=== PATIENT | female | born 1935 | race Caucasian/White ===

== ENCOUNTER 2021-08-28 14:15 | Outpatient (CLI) | payer MEDICARE, BC, SELFPAY | END 2021-08-28 14:16 | disposition home or self-care (01) | LOC: WOUND 14:16 | PROVIDERS: PCP Family Medicine; Visit Provider Surgery | DX: I87.313 Chronic venous hypertension (idiopathic) with ulcer of bilateral lower extremity (principal); L97.822 Non-pressure chronic ulcer of other part of left lower leg with fat layer exposed; L97.812 Non-pressure chronic ulcer of other part of right lower leg with fat layer exposed | CPT/HCPCS: 97597 ==

== ENCOUNTER 2021-09-11 14:04 | Outpatient (CLI) | payer MEDICARE, BC, SELFPAY | END 2021-09-11 14:05 | disposition home or self-care (01) | LOC: WOUND 14:05 | PROVIDERS: PCP Family Medicine; Visit Provider Surgery | DX: I87.313 Chronic venous hypertension (idiopathic) with ulcer of bilateral lower extremity (principal); L97.822 Non-pressure chronic ulcer of other part of left lower leg with fat layer exposed; L97.811 Non-pressure chronic ulcer of other part of right lower leg limited to breakdown of skin | CPT/HCPCS: 11042; 97597 ==

== ENCOUNTER 2021-09-18 13:13 | Outpatient (CLI) | payer MEDICARE, BC, SELFPAY | END 2021-09-18 13:14 | disposition home or self-care (01) | LOC: WOUND 13:14 | PROVIDERS: PCP Family Medicine; Visit Provider Surgery | DX: I87.312 Chronic venous hypertension (idiopathic) with ulcer of left lower extremity (principal); L97.822 Non-pressure chronic ulcer of other part of left lower leg with fat layer exposed; I89.0 Lymphedema, not elsewhere classified | CPT/HCPCS: 11042 ==

== ENCOUNTER 2021-10-02 09:31 | Outpatient (CLI) | payer MEDICARE, BC, SELFPAY | END 2021-10-02 09:32 | disposition home or self-care (01) | LOC: WOUND 09:31 | PROVIDERS: PCP Family Medicine; Visit Provider Surgery | DX: I87.313 Chronic venous hypertension (idiopathic) with ulcer of bilateral lower extremity (principal); L97.222 Non-pressure chronic ulcer of left calf with fat layer exposed; L97.212 Non-pressure chronic ulcer of right calf with fat layer exposed | CPT/HCPCS: 11042 ==

== ENCOUNTER 2021-10-02 13:10 | Outpatient (CLI) | payer MEDICARE, BC, SELFPAY | END 2021-10-02 13:11 | disposition home or self-care (01) | LOC: WOUND 13:11 | PROVIDERS: PCP Family Medicine; Visit Provider Surgery | DX: I87.313 Chronic venous hypertension (idiopathic) with ulcer of bilateral lower extremity (principal); L97.222 Non-pressure chronic ulcer of left calf with fat layer exposed; L97.212 Non-pressure chronic ulcer of right calf with fat layer exposed | CPT/HCPCS: 11042 ==

== ENCOUNTER 2021-10-09 13:15 | Outpatient (CLI) | payer MEDICARE, BC, SELFPAY | END 2021-10-09 13:16 | disposition home or self-care (01) | LOC: WOUND 13:16 | PROVIDERS: PCP Family Medicine; Visit Provider Surgery | DX: I87.313 Chronic venous hypertension (idiopathic) with ulcer of bilateral lower extremity (principal); I89.0 Lymphedema, not elsewhere classified; L97.212 Non-pressure chronic ulcer of right calf with fat layer exposed; L97.822 Non-pressure chronic ulcer of other part of left lower leg with fat layer exposed | CPT/HCPCS: 11042 ==

== ENCOUNTER 2021-10-16 13:12 | Outpatient (CLI) | payer MEDICARE, BC, SELFPAY | END 2021-10-16 13:13 | disposition home or self-care (01) | LOC: WOUND 13:13 | PROVIDERS: PCP Family Medicine; Visit Provider Surgery | DX: I87.303 Chronic venous hypertension (idiopathic) without complications of bilateral lower extremity (principal); I89.0 Lymphedema, not elsewhere classified; L97.822 Non-pressure chronic ulcer of other part of left lower leg with fat layer exposed; L97.212 Non-pressure chronic ulcer of right calf with fat layer exposed | CPT/HCPCS: 11042 ==

== ENCOUNTER 2021-10-23 13:08 | Outpatient (CLI) | payer MEDICARE, BC, SELFPAY | END 2021-10-23 13:09 | disposition home or self-care (01) | LOC: WOUND 13:09 | PROVIDERS: PCP Family Medicine; Visit Provider Surgery | DX: I87.312 Chronic venous hypertension (idiopathic) with ulcer of left lower extremity (principal); L97.822 Non-pressure chronic ulcer of other part of left lower leg with fat layer exposed | CPT/HCPCS: 97597 ==

== ENCOUNTER 2021-10-30 13:10 | Outpatient (CLI) | payer MEDICARE, BC, SELFPAY | END 2021-10-30 13:11 | disposition home or self-care (01) | LOC: WOUND 13:10 | PROVIDERS: PCP Family Medicine; Visit Provider Surgery | DX: I87.313 Chronic venous hypertension (idiopathic) with ulcer of bilateral lower extremity (principal); L97.822 Non-pressure chronic ulcer of other part of left lower leg with fat layer exposed; L97.212 Non-pressure chronic ulcer of right calf with fat layer exposed | CPT/HCPCS: 29581; 99212 ==

== ENCOUNTER 2021-11-06 08:00 | Outpatient (CLI) | payer MEDICARE, BC, SELFPAY | END 2021-11-06 08:01 | disposition home or self-care (01) | LOC: WOUND 03-18 11:13 | PROVIDERS: PCP Family Medicine; Visit Provider Surgery | DX: I87.313 Chronic venous hypertension (idiopathic) with ulcer of bilateral lower extremity (principal); L97.212 Non-pressure chronic ulcer of right calf with fat layer exposed; L97.822 Non-pressure chronic ulcer of other part of left lower leg with fat layer exposed; L97.812 Non-pressure chronic ulcer of other part of right lower leg with fat layer exposed | CPT/HCPCS: 11042 ==

== ENCOUNTER 2021-11-13 13:13 | Outpatient (CLI) | payer MEDICARE, BC, SELFPAY | END 2021-11-13 13:14 | disposition home or self-care (01) | LOC: WOUND 13:13 | PROVIDERS: PCP Family Medicine; Visit Provider Nurse Practitioner Family | DX: I87.313 Chronic venous hypertension (idiopathic) with ulcer of bilateral lower extremity (principal); L97.822 Non-pressure chronic ulcer of other part of left lower leg with fat layer exposed; L97.212 Non-pressure chronic ulcer of right calf with fat layer exposed; I89.0 Lymphedema, not elsewhere classified | CPT/HCPCS: 11042 ==

== ENCOUNTER 2021-11-20 13:09 | Outpatient (CLI) | payer MEDICARE, BC, SELFPAY | END 2021-11-20 13:10 | disposition home or self-care (01) | LOC: WOUND 13:09 | PROVIDERS: PCP Family Medicine; Visit Provider Surgery | DX: I87.311 Chronic venous hypertension (idiopathic) with ulcer of right lower extremity (principal); L97.212 Non-pressure chronic ulcer of right calf with fat layer exposed | CPT/HCPCS: 11042 ==

== ENCOUNTER 2021-11-27 13:56 | Outpatient (CLI) | payer MEDICARE, BC, SELFPAY | END 2021-11-27 13:57 | disposition home or self-care (01) | LOC: WOUND 13:59 | PROVIDERS: PCP Family Medicine; Visit Provider Surgery | DX: I87.313 Chronic venous hypertension (idiopathic) with ulcer of bilateral lower extremity (principal); I89.0 Lymphedema, not elsewhere classified; L97.822 Non-pressure chronic ulcer of other part of left lower leg with fat layer exposed; L97.812 Non-pressure chronic ulcer of other part of right lower leg with fat layer exposed | CPT/HCPCS: 11042 ==

== ENCOUNTER 2021-12-04 13:10 | Outpatient (CLI) | payer MEDICARE, BC, SELFPAY | END 2021-12-04 13:11 | disposition home or self-care (01) | LOC: WOUND 13:11 | PROVIDERS: PCP Family Medicine; Visit Provider Surgery | DX: I87.312 Chronic venous hypertension (idiopathic) with ulcer of left lower extremity (principal); L97.822 Non-pressure chronic ulcer of other part of left lower leg with fat layer exposed; I89.0 Lymphedema, not elsewhere classified | CPT/HCPCS: 11042 ==

== ENCOUNTER 2021-12-11 13:08 | Outpatient (CLI) | payer MEDICARE, BC, SELFPAY | END 2021-12-11 13:09 | disposition home or self-care (01) | LOC: WOUND 13:08 | PROVIDERS: PCP Family Medicine; Visit Provider Surgery | DX: I87.313 Chronic venous hypertension (idiopathic) with ulcer of bilateral lower extremity (principal); L97.822 Non-pressure chronic ulcer of other part of left lower leg with fat layer exposed; L97.812 Non-pressure chronic ulcer of other part of right lower leg with fat layer exposed; I89.0 Lymphedema, not elsewhere classified | CPT/HCPCS: 97597 ==

== ENCOUNTER 2021-12-18 13:10 | Outpatient (CLI) | payer MEDICARE, BC, SELFPAY | END 2021-12-18 13:11 | disposition home or self-care (01) | LOC: WOUND 13:10 | PROVIDERS: PCP Family Medicine; Visit Provider Surgery | DX: I87.313 Chronic venous hypertension (idiopathic) with ulcer of bilateral lower extremity (principal); L97.823 Non-pressure chronic ulcer of other part of left lower leg with necrosis of muscle; L97.812 Non-pressure chronic ulcer of other part of right lower leg with fat layer exposed; I89.0 Lymphedema, not elsewhere classified | CPT/HCPCS: 11042; 97597 ==

== ENCOUNTER 2021-12-25 13:15 | Outpatient (CLI) | payer MEDICARE, BC, SELFPAY | END 2021-12-25 13:16 | disposition home or self-care (01) | LOC: WOUND 13:16 | PROVIDERS: PCP Family Medicine; Visit Provider Surgery | DX: I87.313 Chronic venous hypertension (idiopathic) with ulcer of bilateral lower extremity (principal); L97.822 Non-pressure chronic ulcer of other part of left lower leg with fat layer exposed; L97.812 Non-pressure chronic ulcer of other part of right lower leg with fat layer exposed; I89.0 Lymphedema, not elsewhere classified | CPT/HCPCS: 11042 ==

== ENCOUNTER 2022-01-01 13:18 | Outpatient (CLI) | payer MEDICARE, BC, SELFPAY | END 2022-01-01 13:19 | disposition home or self-care (01) | LOC: WOUND 13:19 | PROVIDERS: PCP Family Medicine; Visit Provider Surgery | DX: I87.313 Chronic venous hypertension (idiopathic) with ulcer of bilateral lower extremity (principal); L97.821 Non-pressure chronic ulcer of other part of left lower leg limited to breakdown of skin; L97.812 Non-pressure chronic ulcer of other part of right lower leg with fat layer exposed; L97.822 Non-pressure chronic ulcer of other part of left lower leg with fat layer exposed | CPT/HCPCS: 97597 ==

== ENCOUNTER 2022-01-08 13:06 | Outpatient (CLI) | payer MEDICARE, BC, SELFPAY | END 2022-01-08 13:07 | disposition home or self-care (01) | LOC: WOUND 13:07 | PROVIDERS: PCP Family Medicine; Visit Provider Surgery | DX: I87.313 Chronic venous hypertension (idiopathic) with ulcer of bilateral lower extremity (principal); I89.0 Lymphedema, not elsewhere classified; L97.822 Non-pressure chronic ulcer of other part of left lower leg with fat layer exposed; L97.812 Non-pressure chronic ulcer of other part of right lower leg with fat layer exposed | CPT/HCPCS: 11042 ==

== ENCOUNTER 2022-01-15 13:12 | Outpatient (CLI) | payer MEDICARE, BC, SELFPAY | END 2022-01-15 13:13 | disposition home or self-care (01) | LOC: WOUND 13:13 | PROVIDERS: PCP Family Medicine; Visit Provider Nurse Practitioner Family | DX: I83.023 Varicose veins of left lower extremity with ulcer of ankle (principal); I83.012 Varicose veins of right lower extremity with ulcer of calf; L97.322 Non-pressure chronic ulcer of left ankle with fat layer exposed; L97.812 Non-pressure chronic ulcer of other part of right lower leg with fat layer exposed; I89.0 Lymphedema, not elsewhere classified; L97.222 Non-pressure chronic ulcer of left calf with fat layer exposed | CPT/HCPCS: 11042 ==

== ENCOUNTER 2022-02-05 13:01 | Outpatient (CLI) | payer MEDICARE, BC, SELFPAY | END 2022-02-05 13:02 | disposition home or self-care (01) | LOC: WOUND 13:01 | PROVIDERS: PCP Family Medicine; Visit Provider Surgery | DX: I87.313 Chronic venous hypertension (idiopathic) with ulcer of bilateral lower extremity (principal); L97.822 Non-pressure chronic ulcer of other part of left lower leg with fat layer exposed; L97.812 Non-pressure chronic ulcer of other part of right lower leg with fat layer exposed; I89.0 Lymphedema, not elsewhere classified | CPT/HCPCS: 97597 ==

== ENCOUNTER 2022-02-19 13:09 | Outpatient (CLI) | payer MEDICARE, BC, SELFPAY | END 2022-02-19 13:10 | disposition home or self-care (01) | LOC: WOUND 13:09 | PROVIDERS: PCP Family Medicine; Visit Provider Surgery | DX: I87.312 Chronic venous hypertension (idiopathic) with ulcer of left lower extremity (principal); L97.822 Non-pressure chronic ulcer of other part of left lower leg with fat layer exposed | CPT/HCPCS: 11042 ==

== ENCOUNTER 2022-02-26 13:10 | Outpatient (CLI) | payer MEDICARE, BC, SELFPAY | END 2022-02-26 13:11 | disposition home or self-care (01) | LOC: WOUND 13:10 | PROVIDERS: PCP Family Medicine; Visit Provider Surgery | DX: I87.312 Chronic venous hypertension (idiopathic) with ulcer of left lower extremity (principal); L97.222 Non-pressure chronic ulcer of left calf with fat layer exposed; I89.0 Lymphedema, not elsewhere classified | CPT/HCPCS: 11042 ==

== ENCOUNTER 2022-03-12 13:02 | Outpatient (CLI) | payer MEDICARE, BC, SELFPAY | END 2022-03-12 13:03 | disposition home or self-care (01) | LOC: WOUND 13:03 | PROVIDERS: PCP Family Medicine; Visit Provider Surgery | DX: I87.312 Chronic venous hypertension (idiopathic) with ulcer of left lower extremity (principal); L97.822 Non-pressure chronic ulcer of other part of left lower leg with fat layer exposed; I89.0 Lymphedema, not elsewhere classified | CPT/HCPCS: 11042 ==

== ENCOUNTER 2022-03-17 14:55 | Outpatient (CLI) | payer MEDICARE, BC, SELFPAY ==
--- NOTE | 2022-03-17 15:00 | CRLHL7_ITS ---
For Patients: As a result of the 21st Century Cures Act, medical imaging exams and procedure reports are released immediately into your electronic medical record. You may view this report before your referring provider. If you have questions, please contact your health care provider. ULTRASOUND LOWER EXTREMITY VENOUS INSUFFICIENCY BILATERAL CLINICAL HISTORY: Venous stasis ulcers. TECHNIQUE: The bilateral lower extremity veins were examined with man-scale ultrasound, color-flow and Doppler spectral analysis. Compressibility of the veins by transducer pressure was used to evaluate the presence or absence of DVT/SVT at sites per exam specific protocol. Assessment of venous competence was performed by Doppler spectral analysis and was performed and documented at exam specific sites in an upright position for venous insufficiency studies. COMPARISON: None. FINDINGS: There is no evidence for DVT in the bilateral lower extremities. The deep venous systems are compressible augmentation of flow post-compression. Phasic flow is identified. Deep venous incompetence is noted within one of the right posterior tibial veins (reflux duration 4 seconds). Right lower extremity: The greater saphenous vein is incompetent at the distal thigh (reflux duration 4.1 seconds, 4.7 mm), in the proximal calf (reflux duration 3 seconds, 4.6 mm), mid calf (reflux duration 5.4 seconds, 4.6 mm), and at the distal calf (reflux duration 2.8 seconds, 3.5 mm). An incompetent perforating vein is noted in the distal calf (reflux duration 2.5 seconds, 3 mm). Left lower extremity: Greater saphenous vein incompetence is noted at the distal thigh (reflux duration 2 seconds, 7 mm), at the proximal calf (reflux duration 4.6 seconds, 4 mm), and in the mid calf (reflux duration 2.3 seconds, 3.1 mm). An incompetent perforating vein is noted in the distal calf (reflux duration 1.1 seconds, 3 mm). DEEP SYSTEM: RIGHT: Vessel: CFV: Competent. SFV Prox: Competent. SFV Mid: Competent. SFV Distal: Competent. Pop: Competent. PTV1: Competent. PTV2: Incompetent. 4 sec. LEFT: Vessel: CFV: Competent. SFV Prox: Competent. SFV Mid: Competent. SFV Distal: Competent. Pop: Competent. PTV1: Competent. PTV2: Competent. SUPERFICIAL SYSTEM: RIGHT: Vessel: SFJ: 8 mm. Competent. GSV Thigh Prox: 5 mm. Competent. GSV Thigh Mid: Competent. GSV Thigh Distal: Incompetent. 4.1 sec. GSV Calf Prox: Incompetent. 3 sec. GSV Calf Mid: Incompetent. 5 sec. GSV Calf Distal: Incompetent. 3 sec. LSV Prox: - LSV Mid: Competent. LEFT: SFJ: Competent. 8 mm. GSV Thigh Prox: Competent. GSV Thigh Mid: Competent. 6 mm. GSV Thigh Distal: Incompetent. 2.0 sec. 7 mm. GSV Calf Prox: Incompetent. 5.0 sec. GSV Calf Mid: Incompetent. 2.3 sec. GSV Calf Distal: Competent. LSV Prox: - LSV Mid: Competent. IMPRESSION: 1. No evidence for DVT in the bilateral lower extremities. Deep venous incompetence within one of the right posterior tibial veins. 2. Right lower extremity: Greater saphenous vein incompetence from the distal thigh to the distal calf. Incompetent perforating vein in the distal calf. 3. Left lower extremity: Greater saphenous vein incompetence throughout the calf. Incompetent perforating vein in the distal calf. Torrey Arroyo M.D. [email or web address] LANCE/Dictated by: Torrey Arroyo MD @ 03/17/2022 7:22:00 PM (Electronically Signed)
== END 2022-03-17 14:56 | disposition home or self-care (01) ==
LOC: US 14:57
PROVIDERS: PCP Family Medicine; Visit Provider Surgery
DX: I83.029 Varicose veins of left lower extremity with ulcer of unspecified site (principal); L97.919 Non-pressure chronic ulcer of unspecified part of right lower leg with unspecified severity; L97.929 Non-pressure chronic ulcer of unspecified part of left lower leg with unspecified severity; I83.019 Varicose veins of right lower extremity with ulcer of unspecified site; I87.2 Venous insufficiency (chronic) (peripheral); I87.303 Chronic venous hypertension (idiopathic) without complications of bilateral lower extremity
CPT/HCPCS: 93970

== ENCOUNTER 2022-03-26 13:14 | Outpatient (CLI) | payer MEDICARE, BC, SELFPAY | END 2022-03-26 13:15 | disposition home or self-care (01) | LOC: WOUND 13:14 | PROVIDERS: PCP Family Medicine; Visit Provider Surgery | DX: I87.312 Chronic venous hypertension (idiopathic) with ulcer of left lower extremity (principal); L97.822 Non-pressure chronic ulcer of other part of left lower leg with fat layer exposed; I89.0 Lymphedema, not elsewhere classified | CPT/HCPCS: 97597 ==

== ENCOUNTER 2022-04-02 13:13 | Outpatient (CLI) | payer MEDICARE, BC, SELFPAY | END 2022-04-02 13:14 | disposition home or self-care (01) | LOC: WOUND 13:13 | PROVIDERS: PCP Family Medicine; Visit Provider Surgery | DX: I87.313 Chronic venous hypertension (idiopathic) with ulcer of bilateral lower extremity (principal); L97.812 Non-pressure chronic ulcer of other part of right lower leg with fat layer exposed; L97.822 Non-pressure chronic ulcer of other part of left lower leg with fat layer exposed; I89.0 Lymphedema, not elsewhere classified | CPT/HCPCS: 11042 ==

== ENCOUNTER 2022-04-09 13:09 | Outpatient (CLI) | payer MEDICARE, BC, SELFPAY | END 2022-04-09 13:10 | disposition home or self-care (01) | LOC: WOUND 13:09 | PROVIDERS: PCP Family Medicine; Visit Provider Surgery | DX: I87.312 Chronic venous hypertension (idiopathic) with ulcer of left lower extremity (principal); L97.222 Non-pressure chronic ulcer of left calf with fat layer exposed | CPT/HCPCS: 11042 ==

== ENCOUNTER 2022-04-16 13:17 | Outpatient (CLI) | payer MEDICARE, BC, SELFPAY | END 2022-04-16 13:18 | disposition home or self-care (01) | LOC: WOUND 13:18 | PROVIDERS: PCP Family Medicine; Visit Provider Surgery | DX: I87.313 Chronic venous hypertension (idiopathic) with ulcer of bilateral lower extremity (principal); L97.812 Non-pressure chronic ulcer of other part of right lower leg with fat layer exposed; L97.822 Non-pressure chronic ulcer of other part of left lower leg with fat layer exposed; I89.0 Lymphedema, not elsewhere classified | CPT/HCPCS: 11042 ==

== ENCOUNTER 2022-04-30 13:10 | Outpatient (CLI) | payer MEDICARE, BC, SELFPAY | END 2022-04-30 13:11 | disposition home or self-care (01) | LOC: WOUND 13:10 | PROVIDERS: PCP Family Medicine; Visit Provider Surgery | DX: I87.313 Chronic venous hypertension (idiopathic) with ulcer of bilateral lower extremity (principal); L97.822 Non-pressure chronic ulcer of other part of left lower leg with fat layer exposed; L97.812 Non-pressure chronic ulcer of other part of right lower leg with fat layer exposed; I89.0 Lymphedema, not elsewhere classified | CPT/HCPCS: 97597 ==

== ENCOUNTER 2022-05-07 11:06 | Outpatient (CLI) | payer MEDICARE, BC, SELFPAY | END 2022-05-07 11:07 | disposition home or self-care (01) | LOC: WOUND 11:06 | PROVIDERS: PCP Family Medicine; Visit Provider Surgery | DX: I87.313 Chronic venous hypertension (idiopathic) with ulcer of bilateral lower extremity (principal); L97.812 Non-pressure chronic ulcer of other part of right lower leg with fat layer exposed; L97.822 Non-pressure chronic ulcer of other part of left lower leg with fat layer exposed | CPT/HCPCS: 97597 ==

== ENCOUNTER 2022-05-12 06:45 | Outpatient (CLI) | payer MEDICARE, BC, SELFPAY | END 2022-05-12 06:46 | disposition home or self-care (01) | LOC: AMB 05-15 10:51 | PROVIDERS: PCP Family Medicine; Visit Provider Family Medicine | DX: S99.921A Unspecified injury of right foot, initial encounter (principal); W18.30XA Fall on same level, unspecified, initial encounter; Y92.099 Unspecified place in other non-institutional residence as the place of occurrence of the external cause | CPT/HCPCS: A0425; A0429 ==

== ENCOUNTER 2022-05-12 07:21 | Emergency (ER) | payer MEDICARE, BC, SELFPAY ==
[2022-05-12 07:23] VITALS: BP 169/106; PULSE 85; RESP 20; TEMP 37.2; O2SAT 93; BMI 46.9
--- NOTE | 2022-05-12 07:31 | CRLHL7_ITS ---
For Patients: As a result of the Century Cures Act, medical imaging exams and procedure reports are released immediately into your electronic medical record. You may view this report before your referring provider. If you have questions, please contact your health care provider. Indication: Fall with foot pain Technique: Three images were acquired of the right foot. There are technical limitations to this examination. Comparison: None Findings: Dense atherosclerotic vascular calcifications. Demineralization. Large plantar calcaneal spur. Soft tissue swelling. No gas within soft tissues. No radiopaque foreign body. Significant arthritic change most affecting the 1st MTP. Medial malleolar fracture probably not acute. Correlate with pain in this area. No additional findings suggesting fracture and no evidence of bone destruction Impression: Medial malleolus fracture seen on the margin the image is probably not acute. Correlate with point tenderness in this area. Limited study. No additional suggestion of fracture or bone destruction. Demineralization. Degenerative change. Soft tissue swelling. Plantar calcaneal spur. Atherosclerotic vascular calcifications Dictated by Luis Coffey MD @ 05/12/2022 8:07:56 AM (Electronically Signed)
--- NOTE | 2022-05-12 08:13 | CRLHL7_ITS ---
For Patients: As a result of the Century Cures Act, medical imaging exams and procedure reports are released immediately into your electronic medical record. You may view this report before your referring provider. If you have questions, please contact your health care provider. Indication: Injury with pain Technique: A total of three views of the right ankle were acquired. Comparison: None prior to today Findings: Bones: Alignment is normal. Bone mineral density is decreased. Nondisplaced medial malleolus fracture. This appears to be subacute or chronic. Correlate with mechanism of injury and area of pain . Joint spaces: Osteoarthritis primarily tibiotalar Soft tissues: Soft tissue swelling. Significant sized calcaneal spur. Vascular calcification Impression: Medial malleolus fracture probably subacute or chronic. Osteoarthritis. Soft tissue swelling. Calcaneal spur. Vascular calcifications. Dictated by Luis Coffey MD @ 05/12/2022 9:05:46 AM (Electronically Signed)
--- NOTE | 2022-05-12 08:39 | ED_ITS ---
HPI - General Adult General Date Seen: 05/12/22 Chief complaint: Extremity Pain/Injury, Lower Stated complaint: Right foot pain Time Seen by Provider: 05/12/22 08:04 Source: patient Mode of arrival: EMS Limitations: no limitations History of Present Illness HPI narrative: Patient is an 86-year-old who comes in by EMS for evaluation of right foot and ankle pain. She had a fall on Thursday, reports that she has been walking with difficulty since then. She normally walks with the walker or cane, but has been limping, and this morning found it very difficult to walk. She does have chronic ulcers on her ankles but says he has been doing well, she sees [facility] and says that she has not had any unusual difficulties with increasing redness or pain. She does not have pain at rest, only with ambulation. She is not able to further localize the foot or ankle pain. She does have a hematoma on the top of her foot, she is on Coumadin. She also notes that she has been very out of sorts as it is the 1 year anniversary of her 's . Related Data Home Medications Medication Instructions Recorded Confirmed amlodipine 5 mg tablet 5 mg PO QDAY 12/26/21 12/26/21 atenolol 50 mg tablet 50 mg PO 12/26/21 12/26/21 clotrimazole 1 % topical cream g topical 12/26/21 12/26/21 fluoxetine 10 mg capsule 10 mg PO 12/26/21 12/26/21 furosemide 40 mg tablet 40 mg PO 12/26/21 12/26/21 gabapentin 100 mg capsule 100 mg PO 12/26/21 12/26/21 losartan 100 mg tablet 100 mg PO 12/26/21 12/26/21 potassium chloride 10 mEq 10 meq PO 12/26/21 12/26/21 capsule,extended release warfarin 5 mg tablet 5 mg PO 12/26/21 12/26/21 wqvvixlg-wceestn-ndon-lutein tablet 1 tab PO 12/31/21 12/31/21 Allergies Allergy/AdvReac Type Severity Reaction Status Date / Time hydrochlorothiazide Allergy Verified 04/18/22 10:57 Sulfa (Sulfonamide Allergy Rash Verified 04/18/22 10:57 Antibiotics) Review of Systems Status of ROS: Reports: 6 or more systems reviewed and unremarkable except as noted in History and below [facility] Medical History Atrial fibrillation Cellulitis of leg Chest pain Hypertension Sepsis Ulcer of lower extremity Urinary tract infection Venous stasis ulcers of both lower extremities Surgical History H/O excision of mass (09/21/00) 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 Extremities: She has venous stasis changes noted in bilateral legs, these are symmetric, she does have some erythema noted bilaterally, again symmetric. Leg seem tender throughout bilateral calves, ankles, feet. On the right, she has a hematoma on the top of her foot. Her foot is tender everywhere, ankle is tender everywhere, really not able to localize anything. No significant warmth. I took down the dressing on the right, but did not take down the small bandages over the ulcers. Per her report, these have been looking good. Skin: As noted, venous stasis changes, some symmetric redness on both legs, no findings suggestive of cellulitis. Const: Vital Signs, click to edit/add: Vital Signs - 24 hr 05/12/22 07:23 Temperature 98.9 F Pulse Rate [Right Pulse Oximeter] 85 Respiratory Rate 20 Blood Pressure [Le ft Upper Arm] 169/106 H Pulse Oximetry 93 Oxygen Delivery Me thod Room Air Documenting provider has reviewed patient's vital signs: yes Course Course Hospital Course: Prior to my arrival, the previous physician had ordered x-rays of the right foot, which by my review showed significant osteoporosis, and a fracture of the medial malleolus, which radiology reads as probably not acute. They recommend correlation with exam. She does have tenderness there, however she has tenderness everywhere so it is a little hard to know. She does have a recent fall and difficulty with ambulation however, so it is certainly possible that this is an acute fracture. I am going to get dedicated films of the ankle to see if this clarifies anything. X-rays of the ankle continue to show a fracture through the medial malleolus which looks somewhat corticated, radiology is calling this likely subacute to chronic, however she does have tenderness here, has pain in the ankle, does not seem to have more medial tenderness than lateral so it is still really difficult to know whether this is an acute fracture. However, given that she has pain and is having difficulty walking, I do think it is prudent to treat this right now is a possibly acute fracture. I have talked with Orthopedics, they would recommend at minimum a walking boot and minimal weight-bearing. She has these ulcers, and this hematoma on the top of her foot, so I think it is preferable to put a boot on rather than a Jermaine Harris splint of possible so that this can be removed and cares can be done to her ulcers and hematoma can be watched. It is difficult for her to have anything on this ankle and foot as she just does not tolerate any pressure to any part of the ankle or foot, but we did apply the walking boot for now. She is requiring multiple people to transfer just from the chair to the wheelchair, and as such I am going to switch her to retirement side. Fortunately they can accommodate that at her care center. She will follow-up with orthopedics in the next week or 2, and will try and sort out whether not this fracture seems to be acute. She did have an oxycodone here, she takes those chronically so she can continue with that. Elevate as able, weightbear as little as possible. Vital Signs Vital signs: Initial Vital Signs Temperature 98.9 F 05/12/22 07:23 Temperature Source Temporal Artery Scan 05/12/22 07:23 Pulse Rate 85 05/12/22 07:23 Respiratory Rate 20 05/12/22 07:23 Blood Pressure 169/106 H 05/12/22 07:23 Blood Pressure Mean 127 05/12/22 07:23 Blood Pressure Position Sitting 05/12/22 07:23 Pulse Oximetry 93 05/12/22 07:23 Oxygen Delivery Method 05/12/22 07:23 Vital Signs Temperature 98.9 F 05/12/22 07:23 Pulse Rate 85 05/12/22 07:23 Respiratory Rate 20 05/12/22 07:23 Blood Pressure 169/106 H 05/12/22 07:23 Pulse Oximetry 93 05/12/22 07:23 Oxygen Delivery Method 05/12/22 07:23 Temperature 98.9 F 05/12/22 07:23 Pulse Rate 85 05/12/22 07:23 Respiratory Rate 20 05/12/22 07:23 Blood Pressure 169/106 H 05/12/22 07:23 Pulse Oximetry 93 05/12/22 07:23 Oxygen Delivery Method 05/12/22 07:23 Discharge Plan Discharge Clinical Impression: Injury of ankle, right Patient Disposition: [facility] Condition: Stable Instructions: Ankle Fracture (ED) Additional Instructions: Orthopedic clinic follow-up in 1-2 weeks. Wear boot until then, elevate as able, minimize weight-bearing. Continue your pain medications as usual. Prescriptions: No Action amlodipine 5 mg tablet 5 mg PO QDAY gabapentin 100 mg capsule 100 mg PO clotrimazole 1 % cream topical losartan 100 mg tablet 100 mg PO atenolol 50 mg tablet 50 mg PO fluoxetine 10 mg capsule 10 mg PO potassium chloride 10 mEq capsule, extended release 10 meq PO furosemide 40 mg tablet 40 mg PO warfarin 5 mg tablet 5 mg PO uajugopv-bxiimrs-xzfc-lutein Tablet 1 tab PO Stand Alone Forms: [facility] Info Instructions
--- NOTE | 2022-05-12 08:44 | ED.NURSE ---
up to chair with assist of 2 and walker.
[2022-05-12] MEDS: OXYCODONE 5 MG TABLET PO (10:09)
--- NOTE | 2022-05-12 11:16 | ED.NURSE ---
talked to Shayla at [facility] who is in agreement that pt will need higher level of care at the care center. staff are gathering info for transfer
[2022-05-12 13:03] VITALS: BP 159/71; PULSE 90; RESP 18; O2SAT 93
--- NOTE | 2022-05-12 14:08 | ED.NURSE ---
transferred back to Care Center via care center van. pt resisting putting on cam walker.
== END 2022-05-12 14:09 ==
PROVIDERS: Emergency Provider Emergency Medicine; PCP Family Medicine
DX: S82.854A Nondisplaced trimalleolar fracture of right lower leg, initial encounter for closed fracture (principal); W19.XXXA Unspecified fall, initial encounter
CPT/HCPCS: 73610; 73630; 99284; A9270

== ENCOUNTER 2022-05-21 13:17 | Outpatient (CLI) | payer MEDICARE, BC, SELFPAY | END 2022-05-21 13:18 | disposition home or self-care (01) | LOC: WOUND 13:17 | PROVIDERS: PCP Family Medicine; Visit Provider Surgery | DX: L97.812 Non-pressure chronic ulcer of other part of right lower leg with fat layer exposed; S81.801A Unspecified open wound, right lower leg, initial encounter; I89.0 Lymphedema, not elsewhere classified; I87.311 Chronic venous hypertension (idiopathic) with ulcer of right lower extremity | CPT/HCPCS: 11042 ==

== ENCOUNTER 2022-05-28 13:21 | Outpatient (CLI) | payer MEDICARE, BC, SELFPAY | END 2022-05-28 13:22 | disposition home or self-care (01) | LOC: WOUND 13:21 | PROVIDERS: PCP Family Medicine; Visit Provider Surgery | DX: S91.301A Unspecified open wound, right foot, initial encounter (principal); I89.0 Lymphedema, not elsewhere classified | CPT/HCPCS: 11042 ==

== ENCOUNTER 2022-06-04 13:14 | Outpatient (CLI) | payer MEDICARE, BC, SELFPAY | END 2022-06-04 13:15 | disposition home or self-care (01) | LOC: WOUND 13:14 | PROVIDERS: PCP Family Medicine; Visit Provider Surgery | DX: S91.301A Unspecified open wound, right foot, initial encounter (principal); I89.0 Lymphedema, not elsewhere classified | CPT/HCPCS: 97597 ==

== ENCOUNTER 2022-06-11 13:08 | Outpatient (CLI) | payer MEDICARE, BC, SELFPAY | END 2022-06-11 13:09 | disposition home or self-care (01) | LOC: WOUND 13:08 | PROVIDERS: PCP Family Medicine; Visit Provider Surgery | DX: I87.313 Chronic venous hypertension (idiopathic) with ulcer of bilateral lower extremity (principal); L97.812 Non-pressure chronic ulcer of other part of right lower leg with fat layer exposed; L97.822 Non-pressure chronic ulcer of other part of left lower leg with fat layer exposed; L97.312 Non-pressure chronic ulcer of right ankle with fat layer exposed; S91.301A Unspecified open wound, right foot, initial encounter | CPT/HCPCS: 97597; 97598 ==

== ENCOUNTER 2022-06-18 13:08 | Outpatient (CLI) | payer MEDICARE, BC, SELFPAY | END 2022-06-18 13:09 | disposition home or self-care (01) | LOC: WOUND 13:09 | PROVIDERS: PCP Family Medicine; Visit Provider Surgery | DX: I87.311 Chronic venous hypertension (idiopathic) with ulcer of right lower extremity (principal); L97.812 Non-pressure chronic ulcer of other part of right lower leg with fat layer exposed; I89.0 Lymphedema, not elsewhere classified; I48.20 Chronic atrial fibrillation, unspecified | CPT/HCPCS: 97597 ==

== ENCOUNTER 2022-06-25 13:22 | Outpatient (CLI) | payer MEDICARE, BC, SELFPAY | END 2022-06-25 13:23 | disposition home or self-care (01) | LOC: WOUND 13:22 | PROVIDERS: PCP Family Medicine; Visit Provider Surgery | DX: I87.313 Chronic venous hypertension (idiopathic) with ulcer of bilateral lower extremity (principal); L97.812 Non-pressure chronic ulcer of other part of right lower leg with fat layer exposed; L97.822 Non-pressure chronic ulcer of other part of left lower leg with fat layer exposed; I89.0 Lymphedema, not elsewhere classified | CPT/HCPCS: 11042; 11045 ==

== ENCOUNTER 2022-08-07 10:07 | Outpatient (CLI) | payer MEDICARE, BC, SELFPAY | END 2022-08-07 10:08 | disposition home or self-care (01) | LOC: AMB 08-26 00:23 | PROVIDERS: PCP Family Medicine; Visit Provider Internal Medicine | DX: R53.1 Weakness (principal) | CPT/HCPCS: A0425; A0427 ==

== ENCOUNTER 2022-08-07 10:39 | Inpatient (IN) | payer MEDICARE, BC, SELFPAY ==
[2022-08-07] VITALS (8 sets, daily range): BP systolic 101–149; BP diastolic 51–100; PULSE 67–99; RESP 18–24; TEMP 36.8–37.5; O2SAT 86–98; BMI 46.9
--- NOTE | 2022-08-07 11:17 | CRLHL7_ITS ---
For Patients: As a result of the Cures Act, medical imaging exams and procedure reports are released immediately into your electronic medical record. You may view this report before your referring provider. If you have questions, please contact your health care provider. INDICATION: Cough TECHNIQUE: Chest 1 view COMPARISON: 08/03/2020 FINDINGS: Mild chronic prominence of the interstitium bilaterally. No dense infiltrate. Cardiac silhouette enlarged. Degenerative changes both shoulders. No large pleural effusion or pneumothorax. IMPRESSION: Chronic fibrotic changes bilaterally without acute infiltrate or CHF. Dictated by Jose Miguel Stoll MD @ 08/07/2022 12:09:25 PM (Electronically Signed)
[2022-08-07 11:39] LABS: HCO3 VBG 26 mmol/L (21-28); PCO2 VBG 40 mmHG (40-50); PO2 VBG 41.9 mmHG (25-47); pH VBG 7.418 (7.32-7.43)
[2022-08-07 11:40] LABS: Basophils Absolute Auto 0.01 K/uL (0.00-0.30); Basophils Percent Auto 0.1 % (0.0-3.0); Hematocrit 42.3 % (33.0-51.0); Hemoglobin* 13.8 gm/dL (12.0-16.0); Immature Granulocytes Abs Auto 0.02 K/uL (0.00-0.30); Immature Granulocytes Pct Auto 0.2 %; Mean Corpuscular HGB Conc 33 gm/dL (32-36); Mean Corpuscular Hemoglobin 31 pg (26-34); Mean Corpuscular Volume 95 fL (80-100); Monocytes Percent Auto 6.9 % (0.0-11.0); Neutrophils Percent Auto 90.8 % (42.0-72.0); Platelet Count* 275 K/uL (140-440); RDW Coefficient of Variation % 13.8 % (11.5-15.5); Red Blood Count 4.45 m/uL (4.00-5.20); White Blood Count* 9.65 K/uL (4.50-11.00)
[2022-08-07 11:41] LABS: Slide Review Reflex No
[2022-08-07 11:42] LABS: Lactate* 3.7 mmol/L (0.5-1.9)
[2022-08-07 12:25] LABS: Albumin* 4.3 g/dL (3.3-5.0); Chloride* 99 mmol/L (96-114)
[2022-08-07 12:26] LABS: Potassium* 3.3 mmol/L (3.6-5.1); Sodium* 140 mmol/L (135-149)
[2022-08-07 12:28] LABS: Aspartate Amino Transferase* 74 U/L (12-35); Bilirubin Direct* 0.2 mg/dL (0.0-0.5); Bilirubin Total* 1.3 mg/dL (0.1-1.5); Carbon Dioxide* 27 mmol/L (20-32); Creatinine* 1.1 mg/dL (0.5-1.5); Est. Creatinine Clearance* 27.35; Estimated Glomerular Filt Rate 50 ml/min
[2022-08-07 12:29] LABS: Alanine Aminotransferase* 38 U/L (4-35); Alkaline Phosphatase* 59 U/L (40-150); Blood Urea Nitrogen* 31 mg/dL (7-30); Calcium* 9.2 mg/dL (8.4-10.6); Glucose* 134 mg/dL (60-115)
[2022-08-07 12:43] LABS: Appearance Urine Cloudy (Clear); Bilirubin Urine Negative (Negative); Blood Urine 3+ (Negative); Color Urine Amber (Yellow); Glucose Urine Negative (Negative); Ketones Urine Negative (Negative); Leukocyte Esterase Urine Negative (Negative); Nitrite Urine Negative (Negative); Protein Urine 3+ (Negative); Urobilinogen Urine 0.2 (0.2-1.0)
--- NOTE | 2022-08-07 12:48 | ED_ITS ---
HPI - General Adult General Date Seen: 08/07/22 Chief complaint: Cough Stated complaint: UTI Time Seen by Provider: 08/07/22 10:48 Source: patient and EMS Mode of arrival: EMS Limitations: no limitations History of Present Illness HPI narrative: Patient is an 86-year-old woman who presents for fatigue, cough, possible urinary symptoms. No known fevers. Denies pain aside from some chronic pain in her right foot. She does have chronic wounds of bilateral ankles and says [facility]. No vomiting. Related Data Home Medications Medication Instructions Recorded Confirmed amlodipine 5 mg tablet 5 mg PO QDAY 12/26/21 08/07/22 atenolol 50 mg tablet 50 mg PO DAILY 12/26/21 08/07/22 fluoxetine 10 mg capsule 10 mg PO DAILY 12/26/21 08/07/22 furosemide 40 mg tablet 40 mg PO QAM 12/26/21 08/07/22 losartan 100 mg tablet 100 mg PO DAILY 12/26/21 08/07/22 warfarin 5 mg tablet 2.5 - 5 mg PO .UD 12/26/21 08/07/22 irnqqyzc-fohnyxn-kuhk-lutein tablet 1 tab PO 12/31/21 07/01/22 carbidopa 25 mg-levodopa 100 mg 1 tab PO TID 08/07/22 08/07/22 tablet oxycodone-acetaminophen 5 mg-325 1 tab PO HS PRN pain 08/07/22 08/07/22 mg tablet (Percocet) Allergies Allergy/AdvReac Type Severity Reaction Status Date / Time hydrochlorothiazide Allergy Verified 08/07/22 13:42 Sulfa (Sulfonamide Allergy Rash Verified 08/07/22 13:42 Antibiotics) Review of Systems Status of ROS: Reports: 10 or more systems reviewed and unremarkable except as noted in History and below [facility] Medical History (Updated 08/07/22 @ 15:15 by Alicia Wong MD) Closed right ankle fracture ?S82.891A - Other fracture of right lower leg, initial encounter for closed fracture (ICD-10) Osteoarthritis of right shoulder ?M19.011 - Primary osteoarthritis, right shoulder (ICD-10) Osteoarthritis of left shoulder ?M19.012 - Primary osteoarthritis, left shoulder (ICD-10) Right rotator cuff tear arthropathy ?M75.101 - Unspecified rotator cuff tear or rupture of right shoulder, not specified as traumatic (ICD-10) ?M12.811 - Other specific arthropathies, not elsewhere classified, right sh oulder (ICD-10) Osteoarthritis of left knee ?M17.12 - Unilateral primary osteoarthritis, left knee (ICD-10) Chronic diastolic CHF (congestive heart failure), NYHA class 2 ?I50.32 - Chronic diastolic (congestive) heart failure (ICD-10) Parkinson disease ?G20 - Parkinson's disease (ICD-10) Venous stasis ulcers of both lower extremities ?I83.019 - Varicose veins of right lower extremity with ulcer of unspecified site (ICD-10) ?I83.029 - Varicose veins of left lower extremity with ulcer of unspecified site (ICD-10) ?L97.919 - Non-pressure chronic ulcer of unspecified part of right lower leg with unspecified severity (ICD-10) ?L97.929 - Non-pressure chronic ulcer of unspecified part of left lower leg with unspecified severity (ICD-10) Hypertension ?I10 - Essential (primary) hypertension (ICD-10) Urinary tract infection ?N39.0 - Urinary tract infection, site not specified (ICD-10) Ulcer of lower extremity ?L97.909 - Non-pressure chronic ulcer of unspecified part of unspecified lowe r leg with unspecified severity (ICD-10) Chest pain ?R07.9 - Chest pain, unspecified (ICD-10) Cellulitis of leg ?L03.119 - Cellulitis of unspecified part of limb (ICD-10) Atrial fibrillation ?I48.91 - Unspecified atrial fibrillation (ICD-10) Surgical History H/O excision of mass (09/21/00) ?Z98.890 - Other specified postprocedural states (ICD-10) 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 In general, an alert, nontoxic elderly woman, coughing continuously. Head: Normocephalic, atraumatic. Eyes: Pupils are equal reactive. Extraocular movements are full. Conjunctivae are normal. ENT: Mucous membranes are moist. Neck: Supple without lymphadenopathy. Heart: Irregularly irregular, systolic murmur heard best over the left sternal border. Lungs: Breath sounds are somewhat decreased bilaterally but clear, no wheezes, crackles. No increased work of breathing. Abdomen: Soft and nontender. No organomegaly. Extremities: Bilateral lower extremities had Anthony wraps and bandages in place. These are taken down, she has shallow chronic ulcerations on bilateral ankles on the left, she has more edema, significant erythema running all the way up to her upper thigh. Slightly warm as well. She has venous stasis changes bilaterally. Neurologic: Patient is alert and oriented to person. Speech is fluent. Face is symmetric. Moves all extremities equally. Affect: Normal. Skin: Warm and dry. Well perfused. Const: Vital Signs, click to edit/add: Vital Signs - 24 hr 08/07/22 10:51 08/07/22 12:00 08/07/22 12:00 Temperature 99.4 F 98.4 F Pulse Rate [Pulse Oximeter] 99 97 99 Respiratory Rate 22 18 24 Blood Pressure [Ri ght Upper Arm] 136/69 145/68 H 132/86 Pulse Oximetry 95 98 97 Oxygen Delivery Me thod Room Air Room Air Room Air 08/07/22 12:30 Temperature 98.8 F Pulse Rate [Pulse Oximeter] 92 Respiratory Rate 20 Blood Pressure [Ri ght Upper Arm] 147/100 H Pulse Oximetry 96 Oxygen Delivery Me thod Room Air Documenting provider has reviewed patient's vital signs: yes Course Course Hospital Course: Following initial evaluation my suspicion was for cellulitis of the left lower extremity at a minimum, I did order a Doppler to rule out DVT and this was read as negative, noted to be somewhat difficult secondary to body habitus. Blood cultures were drawn. I elected to hold off on giving her IV fluids until her workup was complete as she is on diuretic, does have some lower extremity edema and was coughing, wanted to make sure that she did not have evidence of pulmonary edema. D-dimer was elevated at 1.6 so I added on a CT scan of the chest. Labs are notable for normal white blood cell count of 9.6, normal platelets and hemoglobin, left shift with 90% neutrophils. INR elevated at 1.4 to, subtherapeutic given her history of AFib. Venous gas was unremarkable. Electrolytes notable for mildly low potassium of 3.3, BUN and creatinine are unremarkable. Her lactate was elevated at 3.7, but BNP was elevated at over 9000, and given the absence of any signs of shock, fever, elevated white blood cell count, I have elected to hold off on IV fluids for the time being. I did give her Ancef 2 g IV. Urinalysis via straight cath is notably negative with 0- 2 red cells and 0-2 white cells. Final read on the CT scan of the chest is pending at this time but I do not see evidence of PE. COVID is negative. She continues to have a dry cough. Plan at this time is admission for IV antibiotics, management of fluid status. Vital Signs Vital signs: Initial Vital Signs Temperature 99.4 F 08/07/22 10:51 Temperature Source Temporal Artery Scan 08/07/22 10:51 Pulse Rate 99 08/07/22 10:51 Respiratory Rate 22 08/07/22 10:51 Blood Pressure 136/69 08/07/22 10:51 Blood Pressure Mean 91 08/07/22 10:51 Blood Pressure Position Supine 08/07/22 10:51 Pulse Oximetry 95 08/07/22 10:51 Oxygen Delivery Method Room Air 08/07/22 10:51 Vital Signs Temperature 99.4 F 08/07/22 10:51 Pulse Rate 99 08/07/22 10:51 Respiratory Rate 22 08/07/22 10:51 Blood Pressure 136/69 08/07/22 10:51 Pulse Oximetry 95 08/07/22 10:51 Oxygen Delivery Method Room Air 08/07/22 10:51 Temperature 98.8 F 08/07/22 12:30 Pulse Rate 92 08/07/22 12:30 Respiratory Rate 20 08/07/22 12:30 Blood Pressure 147/100 H 08/07/22 12:30 Pulse Oximetry 96 08/07/22 12:30 Oxygen Delivery Method Room Air 08/07/22 12:30 Medical Decision Making Lab Data Labs: Lab Results 08/07/22 08/07/22 08/07/22 Range/Units 11:31 12:04 12:23 WBC 9.65 (4.50-11.00) K/uL RBC 4.45 (4.00-5.20) m/uL Hgb 13.8 (12.0-16.0) gm/dL Hct 42.3 (33.0-51.0) % MCV 95 (80-100) fL MCH 31 (26-34) pg MCHC 33 (32-36) gm/dL RDW Coeff of Mandeep 13.8 (11.5-15.5) % Plt Count 275 (140-440) K/uL Neut % (Auto) 90.8 H (42.0-72.0) % Lymph % (Auto) 2.0 L (20-44) % [place] % (Auto) 6.9 (0.0-11.0) % Eos % (Auto) 0.0 (0.0-7.0) % Baso % (Auto) 0.1 (0.0-3.0) % Neut # (Auto) 8.80 H (1.7-7.0) K/uL Lymph # (Auto) 0.20 L (0.90-2.90) K/uL [place] # (Auto) 0.70 (0.00-0.90) K/UL Eos # (Auto) 0.00 (0.00-0.50) K/uL Baso # (Auto) 0.01 (0.00-0.30) K/uL INR 1.42 H (0.91-1.10) D-Dimer Quant (PE/DVT) 1.39 H (0.00-0.50) ug/ml VBG pH 7.418 (7.32-7.43) VBG pCO2 40 (40-50) mmHG VBG pO2 41.9 (25-47) mmHG VBG HCO3 26 (21-28) mmol/L Sodium 140 (135-149) mmol/L Potassium 3.3 L (3.6-5.1) mmol/L Chloride 99 (96-114) mmol/L Carbon Dioxide 27 (20-32) mmol/L BUN 31 H (7-30) mg/dL Creatinine 1.1 (0.5-1.5) mg/dL Estimated Creat Clear 27.35 Estimated GFR 50 ml/min Glucose 134 H (60-115) mg/dL Lactate 3.7 H (0.5-1.9) mmol/L Calcium 9.2 (8.4-10.6) mg/dL Total Bilirubin 1.3 (0.1-1.5) mg/dL Direct Bilirubin 0.2 (0.0-0.5) mg/dL AST 74 H (12-35) U/L ALT 38 H (4-35) U/L Alkaline Phosphatase 59 (40-150) U/L C-Reactive Protein 21.8 H (0.5-1.0) mg/dL NT-Pro-B Natriuret Pep 9770 pg/mL Total Protein 8.0 (6.0-8.3) g/dL Albumin 4.3 (3.3-5.0) g/dL Urine Color Ol[place] A (Yellow) Urine Appearance Cloudy A (Clear) Urine pH 6.0 (5.0-8.5) Ur Specific [place] 1.020 (1.000-1.030) Urine Protein 3+ A (Negative) Urine Glucose (UA) Negative (Negative) Urine Ketones Negative (Negative) Urine Blood 3+ A (Negative) Urine Nitrite Negative (Negative) Urine Bilirubin Negative (Negative) Urine Urobilinogen 0.2 (0.2-1.0) Ur Leukocyte Esterase Negative (Negative) Urine RBC 0-2 (0-2) Urine WBC 0-2 (0-5) Ur Squamous Epith Cells Few (None-Few) Amorphous Sediment Moderate A (None) Urine Bacteria Moderate A (None) SARS-CoV-2 (PCR) Negative SARS-CoV-2 (Negative) Discharge Plan Discharge Patient Disposition: Admitted As Observation
[2022-08-07 12:55] LABS: D Dimer Quantitative* 1.39 ug/ml (0.00-0.50); INR 1.42 (0.91-1.10); Prothrombin Time 18.2 Seconds
--- NOTE | 2022-08-07 12:55 | CRLHL7_ITS ---
For Patients: As a result of the Century Cures Act, medical imaging exams and procedure reports are released immediately into your electronic medical record. You may view this report before your referring provider. If you have questions, please contact your health care provider. INDICATION: Redness and swelling. COMPARISON: Bilateral lower extremity venous ultrasound 03/17/2022. TECHNIQUE: A compression venous ultrasound exam was performed of the left lower extremity using man-scale imaging, color Doppler and spectral Doppler analysis. FINDINGS: Sonographic imaging of the left lower extremity demonstrates normal compressibility and color Doppler venous blood flow within the common femoral, femoral, deep femoral, and proximal greater saphenous veins. At a lower level the popliteal, peroneal, and posterior tibial veins also show normal compressibility and color Doppler venous blood flow. Limited imaging of the contralateral groin demonstrates a normal spectral waveform and color Doppler venous blood flow within the right common femoral vein. IMPRESSION: Negative for acute DVT in the left lower extremity. Dictated by Marie Angulo MD @ 08/07/2022 2:18:54 PM (Electronically Signed)
--- NOTE | 2022-08-07 12:57 | PC.NURSE ---
pt moved up in bed, cough persistent, nonproductive. pt short of breath with exertion, moving up in bed. right leg red, swollen and warm up to thigh. pt states wounds on bilateral legs always there but redness has recently increased. pt c/o chills. pt denies pain. urine obtained via straight cath and linens changed.
--- NOTE | 2022-08-07 13:01 | CRLHL7_ITS ---
For Patients: As a result of the Century Cures Act, medical imaging exams and procedure reports are released immediately into your electronic medical record. You may view this report before your referring provider. If you have questions, please contact your health care provider. Indication: Cough, shortness of breath, leg swelling and elevated D-dimer Technique: Volumetric multidetector CT images of the chest were obtained after the administration of IV contrast. 95 cc Isovue 370 low osmolar intravenous contrast Comparison: None available. Findings: There is mildly bulky appearance of the thyroid. The thoracic aorta is non aneurysmal with scattered atherosclerotic calcification. There is no central filling defect to suggest pulmonary embolism. There is no mediastinal, hilar or axillary adenopathy. There is mild central bronchial thickening and traction bronchiectatic change. There are increased interstitial markings and minimal ground-glass opacity predominantly within the peripheral lower and inferior upper lobes consistent with mild pulmonary edema. There is no evidence of pulmonary mass or suspicious pulmonary nodule. The partially visualized upper abdominal viscera are within normal limits. The thoracic vertebral body heights are grossly maintained with flowing anterior osteophytosis infusion of the interspinous ligament which can be seen in the setting of ankylosing spondylitis. No evidence of displaced fracture. Impression: Chronic interstitial changes with mildly increased interstitial markings likely representing mild pulmonary edema with basilar atelectasis and parenchymal scar. No definite pulmonary embolus is identified. Please note that all CT scans at this facility use dose modulation, iterative reconstruction, and/or weight-based dosing when appropriate to reduce radiation dose to as low as reasonably achievable. Dictated by Huey Beatty MD @ 08/07/2022 3:38:22 PM (Electronically Signed)
[2022-08-07] MEDS: CEFAZOLIN 1 GM in 0.9 % SODIUM CHLORIDE Mini-bag 100 ML IVPB (13:10)
[2022-08-07 13:13] LABS: RBC Urine 0-2 (0-2); Squamous Epithelial Cell Urine Few (None-Few); WBC Urine 0-2 (0-5)
[2022-08-07 13:14] LABS: Amorphous Sediment Urine Moderate; Bacteria Urine Moderate
--- NOTE | 2022-08-07 13:48 | PC.NURSE ---
to ct via cart.
[2022-08-07 13:58] LABS: C Reactive Protein* 21.8 mg/dL (0.5-1.0)
[2022-08-07 14:00] LABS: NT Pro B Type NatriureticPept* 9770 pg/mL
[2022-08-07 14:07] LABS: SARS PCR* Negative SARS-CoV-2 (Negative)
--- NOTE | 2022-08-07 14:46 | PC.NURSE ---
pt iv infiltrated on left and right. ultrasound guided iv inserted into right antecubital. patent, blood drawn and secured.
--- NOTE | 2022-08-07 14:47 | P.IMHP_ITS ---
Hospitalist- H&P: HPI History of Present Illness Date Seen: 08/07/22 Chief complaint: UTI Narrative: ADMISSION HISTORY AND PHYSICAL - HOSPITALIST Chief Complaint: nonspecific weakness at the [facility] HPI: 86-year-old Carmel lives at [facility]. Today during assessment, the MATERIALS TECHNICIAN was worried about weakness, ongoing cough and mild effusion. EMS was called and she was brought to our ER In the ER she noted to have normal vital signs. She has chronic venous stasis with chronic open wounds on bilateral lower extremities. These have been addressed and treated by the wound care clinic. No recent antibiotics or concerns regarding their progress toward healing. She also has a history of Parkinson's, Atrial fibrillation on warfarin, chronic pain with daily opioids, depression and morbid obesity. Her pain stems from osteoarthritis. No fever. Not hypotensive. Not hypoxic. But coughing, a dry hack, during assessment. Initial assessment was that she had a cellulitis in her left lower extremity. Was started on Ancef. She was also identified as septic given her lactate and initial respiratory rate. But secondary to her chronic diastolic heart failure and elevated BNP we judicious giving fluids. Hospital medicine team was asked to admit secondary to chronic morbidities, elevated lactate, weakness and living alone. ER COURSE: Wounds assessed, Ancef started. Chest CT does not show definitive congestive heart failure or infiltrate or PE Her inflammatory markers are all markedly elevated. Blood cultures were drawn drawn. One g of IV Ancef infused. CODE STATUS: DNR DNI EMERGENCY CONTACT PLAN: Nephew I've updated the PFSH, medications and allergies in the [facility]se tabs. INVESTIGATIONS: LABS/MICRO/ECG/IMAGING 147/100. Afebrile. Pulse 92. Respiratory rate 20. Pulse ox 96% on room air. 108 kilos. CBC is unremarkable. WBC count is not elevated. Normal hemoglobin. Normal platelet count. INR 1.42 D-dimer 1.4 Blood gas is reassuring. Normal pH. No CO2 retention. Potassium 3.3, creatinine 1.1, her creatinine was 0.8 in April GFR 50 Glucose 134 Lactate 3.7 LFTs are mildly bumped. AST is 74. ALT 38. Normal bilirubin. Normal alk- phos. CRP markedly elevated at 22 BNP 9700 UA is cloudy, 3+ protein however negative for ketones, nitrite and leukocyte esterase. 0-2 white blood cells. 3+ blood noted SARS-CoV-2 negative Chest x-ray in the ED Chronic fibrotic changes bilaterally without acute infiltrate or CHF Venous Doppler in the ED: Negative for acute DVT in the left lower extremity CTA on admission Chronic interstitial changes with mildly increased interstitial markings likely representing mild pulmonary edema with basilar atelectasis and parenchymal scar. No definite pulmonary embolus is identified. 2 blood cultures pending. Urine culture pending REVIEW OF SYSTEMS: 12-point ROS completed with patient and negative unless otherwise stated in HPI or below. PHYSICAL EXAM: CONSTITUTIONAL: Alert. She knows the year. She knows where she lives. She remembers being concerned, as well, about her weakness and agreed to via EMS to our ER. She did advise her nephew as her emergency contact and states clearly that she would not want chest compressions or intubation in the event of cardiac arrest or respiratory compromise. Constant dry coughing during interview. VITAL SIGNS: see record. HEENT: Normocephalic, atraumatic. PERRL, EOMI, conjunctivae pink, no scleral icterus. Ears and nose externally normal. Pharynx normal. NECK: No JVD. No carotid bruit, no thyromegaly, no adenopathy. CHEST: Clear to auscultation bilaterally - diminished but no wheezes or rhonchi. HEART: S1 and S2 normal. No harsh murmurs. Edema MUSCULOSKELETAL: No gross joint deformity or swelling. NEURO: Cranial nerves intact. Grossly intact. No asymmetric findings. SKIN: I assessed both of her lower extremities. Dry skin, with scale. Open wounds that are not markedly different than the pictures and her wound care record. No drainage. No foul smell. Doppler was done of the left leg which was negative. PSYCHIATRIC: Euthymic. ADMIT TO MEDSURG: FLOOR CARE DVT: Lovenox GI: PO intake Time spent: 70 minutes examining patient, conferring with family and patient, care staff, developing care plan [facility] Medical History (Updated 08/07/22 @ 18:19 by Alicia Wong MD) Closed right ankle fracture ?S82.891A - Other fracture of right lower leg, initial encounter for closed fracture (ICD-10) Osteoarthritis of right shoulder ?M19.011 - Primary osteoarthritis, right shoulder (ICD-10) Osteoarthritis of left shoulder ?M19.012 - Primary osteoarthritis, left shoulder (ICD-10) Right rotator cuff tear arthropathy ?M75.101 - Unspecified rotator cuff tear or rupture of right shoulder, not specified as traumatic (ICD-10) ?M12.811 - Other specific arthropathies, not elsewhere classified, right shoulder (ICD-10) Osteoarthritis of left knee ?M17.12 - Unilateral primary osteoarthritis, left knee (ICD-10) Chronic diastolic CHF (congestive heart failure), NYHA class 2 ?I50.32 - Chronic diastolic (congestive) heart failure (ICD-10) Parkinson disease ?G20 - Parkinson's disease (ICD-10) Venous stasis ulcers of both lower extremities ?I83.019 - Varicose veins of right lower extremity with ulcer of unspecified site (ICD-10) ?I83.029 - Varicose veins of left lower extremity with ulcer of unspecified site (ICD-10) ?L97.919 - Non-pressure chronic ulcer of unspecified part of right lower leg with unspecified severity (ICD-10) ?L97.929 - Non-pressure chronic ulcer of unspecified part of left lower leg with unspecified severity (ICD-10) Hypertension ?I10 - Essential (primary) hypertension (ICD-10) Urinary tract infection ?N39.0 - Urinary tract infection, site not specified (ICD-10) Ulcer of lower extremity ?L97.909 - Non-pressure chronic ulcer of unspecified part of unspecified lower leg with unspecified severity (ICD-10) Chest pain ?R07.9 - Chest pain, unspecified (ICD-10) Cellulitis of leg ?L03.119 - Cellulitis of unspecified part of limb (ICD-10) Atrial fibrillation ?I48.91 - Unspecified atrial fibrillation (ICD-10) Surgical History H/O excision of mass (09/21/00) ?Z98.890 - Other specified postprocedural states (ICD-10) 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) ?Z96.651 - Presence of right artificial knee joint (ICD-10) Family History Mother High blood pressure Father Dementia Social History What is your current living situation: I presently have a place to live Problems where you live: unable to answer Problems where you live details: none In the past 12 months, utilities in danger of being shut off: no In the past 12 mos, have been you worried that your food would run out before you had money to buy more?: declined to answer In the past 12 mos, the food you bought just didn't last and you didn't have money to buy more?: declined to answer Highest level of school completed/degree received: high school graduate Smoking Status: Former smoker What tobacco products do you use: cigarettes Smoking quit date/years: >15 years ago Do you use any of these nicotine containing products: None Second hand tobacco smoke exposure: No How often do you have a drink containing alcohol: never AUDIT-C Alcohol total score: 0 Non-prescribed substance use: denies use Caffeine: No How often does anyone, including family, friends and others, physically hurt you : How often does anyone, including family, friends and others, insult or talk down to you: How often does anyone, including family, friends and others, threaten you with harm: How often does anyone, including family, friends and others, scream or curse at you: service: No Meds Home Medications and Allergies Home Medications Medication Instructions Recorded Confirmed Type amlodipine 5 mg tablet 5 mg PO QDAY 12/26/21 08/07/22 History atenolol 50 mg tablet 50 mg PO DAILY 12/26/21 08/07/22 History fluoxetine 10 mg capsule 10 mg PO DAILY 12/26/21 08/07/22 History furosemide 40 mg tablet 40 mg PO QAM 12/26/21 08/07/22 History losartan 100 mg tablet 100 mg PO DAILY 12/26/21 08/07/22 History warfarin 5 mg tablet 2.5 - 5 mg PO .UD 12/26/21 08/07/22 History wniqbdnu-zhuznow-dfzs-lutein tablet 1 tab PO 12/31/21 07/01/22 History carbidopa 25 mg-levodopa 100 mg 1 tab PO TID 08/07/22 08/07/22 History tablet oxycodone-acetaminophen 5 mg-325 1 tab PO HS PRN pain 08/07/22 08/07/22 History mg tablet (Percocet) Allergies Allergy/AdvReac Type Severity Reaction Status Date / Time hydrochlorothiazide Allergy Verified 08/07/22 13:42 Sulfa (Sulfonamide Allergy Rash Verified 08/07/22 13:42 Antibiotics) Exam Const: Vital Signs, click to edit/add: Vital Signs - 24 hr 08/07/22 10:51 08/07/22 12:00 08/07/22 12:00 Temperature 99.4 F 98.4 F Pulse Rate [Pulse Oximeter] 99 97 99 Respiratory Rate 22 18 24 Blood Pressure [Ri ght Upper Arm] 136/69 145/68 H 132/86 Pulse Oximetry 95 98 97 Oxygen Delivery Me thod Room Air Room Air Room Air 08/07/22 12:30 Temperature 98.8 F Pulse Rate [Pulse Oximeter] 92 Respiratory Rate 20 Blood Pressure [Ri ght Upper Arm] 147/100 H Pulse Oximetry 96 Oxygen Delivery Me thod Room Air Hospitalist - H&P: Result Labs Labs: Short CBC 08/07/22 Range/Units 11:31 WBC 9.65 (4.50-11.00) K/uL Hgb 13.8 (12.0-16.0) gm/dL Hct 42.3 (33.0-51.0) % Plt Count 275 (140-440) K/uL BMP 08/07/22 11:31 Sodium 140 Potassium 3.3 L Chloride 99 Carbon Dioxide 27 BUN 31 H Creatinine 1.1 Glucose 134 H Calcium 9.2 Liver Function 08/07/22 Range/Units 11:31 Total Bilirubin 1.3 (0.1-1.5) mg/dL Direct Bilirubin 0.2 (0.0-0.5) mg/dL AST 74 H (12-35) U/L ALT 38 H (4-35) U/L Alkaline Phosphatase 59 (40-150) U/L Albumin 4.3 (3.3-5.0) g/dL Urine 08/07/22 Range/Units 12:23 Urine Color Oliva A (Yellow) Urine Appearance Cloudy A (Clear) Urine pH 6.0 (5.0-8.5) Ur Specific Clarence 1.020 (1.000-1.030) Urine Protein 3+ A (Negative) Urine Glucose (UA) Negative (Negative) Assessment and Plan Assessment and plan (1) Sepsis: Problem comment: infection plus 2 SIRS criteria: elevated lactate and RR>20 -discussed fluid resuscitation, order 500 mL bolus to the ED (not started until she arrived on the floor) and I'm cautious the setting of chronic heart failure and elevated BNP - but needs volume. will have maintenance fluids ordered and follow lactate and UOP. -blood cultures drawn. Antibiotics infusing in the ED. Starting Zosyn and Azithromycin at admission to floor due to concern for respiratory source. -presumed source is cellulitis but when I compare pics from wound care - I'm not convinced. She is coughing a dry hack. I wonder if she is dry enough that infiltrate is not visualized yet. -procalcitonin is 13, CRP 21 -high risk for bacteremia; thus the switch from ancef to zosyn/azithro Status: Acute (2) Cellulitis of left lower leg: Problem comment: -Ancef 1 g given in the ED -now on zosyn and azithromycin. -will get wound care to come to floor and assess for any recent acute changes (I'm concerned this is not the source of infection) Status: Acute (3) Venous stasis ulcers of both lower extremities: Problem comment: At home: Followed by Navdeep Peña MD. She does wear compression stockings. No rest pain or claudication. She does use lymphedema pumps daily, double layer compression wraps and leg elevation. plan is for sclerotherapy of superficial incompetent veins bilaterally (scheduled in July 2022) Status: Acute (4) Chronic diastolic CHF (congestive heart failure), NYHA class 2: Problem comment: -lasix, potassium, warfarin, atenolol, norvasc = home regimen -BNP 9700 (no previous found in record), potassium mild depressed -will update echo -monitor on telemetry -rate controlled AFIB -initial trop in ED: 0.4 Echo August 2020 Final Impressions: 1. Technically limited exam. 2. Normal left ventricular size, mildly increased wall thickness, normal global systolic function, calculated EF of 71 %. 3. Right ventricular cavity size is normal, global systolic RV function is normal. 4. Severely enlarged left atrium. 5. The aortic valve is trileaflet and sclerotic, mild stenosis and trivial regurgitation. The aortic valve peak velocity is 2.3 m/s, the peak gradient is 21 mmHg, and the mean gradient is 12 mmHg. The aortic valve area is 1.57 cm?? with a dimensionless index of 0.54. The stroke volume index is 58.5 ml/m??. 6. The mitral valve is sclerotic, mild mitral regurgitation. 7. Tricuspid regurgitation is mild regurgitation, the estimated right ventricular systolic pressure is 30 mmHg plus right atrial pressure. Status: Acute (5) Acute hypokalemia: Problem comment: 3.3 getting normal saline - will follow Status: Acute (6) Chronic atrial fibrillation: Problem comment: -OAC and rate control (atenolol) Status: Acute (7) Warfarin anticoagulation: Problem comment: -afib -daily INR -continue warfarin Status: Acute (8) Parkinson disease: Problem comment: mildly progressive Parkinson's disease- on sinemet last neurology in 05/22 (Pipe Scott MD ) Status: Acute (9) Essential hypertension: Problem comment: atenolol, norvasc Status: Acute (10) Depression: Problem comment: prozac (bereavement related) Status: Acute (11) Generalized OA: Status: Acute (12) Chronic pain: Problem comment: osteoarthritis, takes percocet nightly Status: Acute (13) Opioid dependence: Status: Acute (14) Morbid obesity: Problem comment: BMI 46.9 Status: Acute
--- NOTE | 2022-08-07 14:58 | PC.NURSE ---
report given to med/surgery aide who will then give report to assigned RN at shift change. Pt will return to ED until ready for patient on M/S.
[2022-08-07 15:57] LABS: Creatine Kinase* 1319 U/L (41-117)
[2022-08-07 16:10] LABS: Troponin I* 0.04 ng/mL (0.01-0.04)
[2022-08-07] MEDS: 0.9 % SODIUM CHLORIDE 500 ML 500 ML 250 ML IV (16:20)
[2022-08-07 17:25] LABS: PCR FLU A Negative PCR FLU A (Negative); PCR FLU B Negative PCR FLU B (Negative); PCR RSV Negative PCR RSV (Negative)
[2022-08-07] MEDS: 0.9 % SODIUM CHLORIDE 1000 ml 1,000 ML 125 ML IV (17:27)
[2022-08-07] MEDS: PANTOPRAZOLE SODIUM 40 MG INJ IVP (17:27)
[2022-08-07 17:28] LABS: SARS PCR* Negative SARS-CoV-2 (Negative)
[2022-08-07] MEDS: AZITHROMYCIN 250 MG TABLET 500 MG PO (19:05)
[2022-08-07] MEDS: PIPERACILLIN/TAZOBACTAM 3.375 GM in 0.9 % SODIUM CHLORIDE Mini-bag 100 ML IVPB (19:06)
[2022-08-07 19:11] LABS: Lactate* 2.1 mmol/L (0.5-1.9)
[2022-08-07] MEDS: atenoloL 50 MG TABLET PO (19:21)
[2022-08-07] MEDS: 0.9 % SODIUM CHLORIDE 500 ML 500 ML IV (21:33)
[2022-08-07] MEDS: BENZONATATE 100 MG CAPSULE PO (21:57)
[2022-08-07] MEDS: guaiFENesin 600 MG TAB.ER.12H PO (21:57)
[2022-08-07] MEDS: WARFARIN 5 MG TABLET PO (21:57)
[2022-08-07] MEDS: CARBIDOPA-LEVODOPA 25-100 TABLET 1 TAB PO (21:57)
[2022-08-07] MEDS: ACETAMINOPHEN 325 MG TABLET PO (22:06)
--- NOTE | 2022-08-07 22:34 | ONC.NURNOTE ---
Addendum entered by Carlie Ramos RN 08/07/22 22:54: note. typo error. 50cc in bed pain. Original Note: 1600 arrived to med surg via cart. used a air device to transfer pt to the bed. lindsay well. sleepy but easily awaken alert and oriented to person place and time. states usually uses a walker to get around at her asst living. she did recognize me from a previous visit. vs 98-149/72-92- resp 20 and labored. with dry cough. sats 94 ra. 1630 500 cc NS bolus over 2 hrs. Then NS at 125cc hr. 1800 voided aprox 300cc. note 500 in bed moody and soaking half of under pad. did not eat dinner. did drink 500 cc water. between 1600 and 1900. LE Cellullitis dressing removed by Dr. Wong. no puss. blacken areas. aprox small open areas on farshad LE. largest size of a quarter on lateral lt ramirez. no puss. blacken areas or oz areas around healing open wounds. redressed with adaptic kerhananex. sofia pablo. 2100 went in to check on Carmel. She was more sleepy. pale. able to respond to voice and answer questions. more sleepy. oriented to person place and time. vs 99.5-103/62-93-29. sats 85 asleep. 88 awakened. Placed on 2L NC. sats awake 94. asleep 92. bladder scanned for 16cc. noticed reddness and swelling on lt thigh had increased since admission and felt warm to tough. no open areas on lt thigh. marked with marker. Dr. Wong aware. lazaro placed. pt repositioned on her lt side with hob sl. elevated. pt able to stay awake and take rest of meds in applesauce. pt denies pain. did notice her ble were uncomfortable when touching. tylenol given for discomfort and fever. 2114 500cc bolus of NS given over a hr. 2199 lazaro emptied 100 cc clear yellow urine. note pt did have med formed bm just before placing lazaro. good lindsay care was dont.
[2022-08-08] VITALS (8 sets, daily range): BP systolic 98–135; BP diastolic 51–81; PULSE 65–80; RESP 18–20; TEMP 36.4–37.1; O2SAT 90–98
[2022-08-08] MEDS: PIPERACILLIN/TAZOBACTAM 3.375 GM in 0.9 % SODIUM CHLORIDE Mini-bag 100 ML IVPB ×5 (00:40→23:35)
[2022-08-08] MEDS: OxyCODONE/APAP 5-325 TABLET 1 TAB PO ×2 (01:43→19:52)
--- NOTE | 2022-08-08 05:55 | PC.NURSE ---
Carmel is an 86 year old pleasant female with current diagnosis of sepsis. Patient is alert and oriented x 3. Patient slept most of the shift, easily awakened to name with gentle touch. Pain reported to low back, PRN percocet administered by Nelly DODSON at 0150, patient reporting effective results and that pain was resolved. Patient repositioned for comfort. Indwelling lazaro cathter patent and draining clear, frieda colored urine. Patient reporting need to have a bowel movement, Carmel had a medium soft incontinent bowel movement into brief, assisted with changing brief and helped patient onto bed moody as she felt like she needed to have another bowel movement. No further stool after incontinent BM. BLE edematous and noted to have redness extending past margins currently marked. Paperback Machine Operator marked outline of new redness and updated charge nurse and Dr. Wong updated as well. New order to administer IV vanco after zosyn. Dressing to lower extremities changed, patient tolerated well. Patient continues to have dry cough, lung sounds found to have fine crackles in right lower lobe, the rest of her lung pollock are clear on auscultation.
[2022-08-08 06:29] LABS: Hematocrit 35.1 % (33.0-51.0); Hemoglobin* 11.4 gm/dL (12.0-16.0); Mean Corpuscular HGB Conc 33 gm/dL (32-36); Mean Corpuscular Hemoglobin 31 pg (26-34); Mean Corpuscular Volume 96 fL (80-100); Platelet Count* 199 K/uL (140-440); Red Blood Count 3.64 m/uL (4.00-5.20); White Blood Count* 9.59 K/uL (4.50-11.00)
[2022-08-08 06:51] LABS: Chloride* 102 mmol/L (96-114); Sodium* 136 mmol/L (135-149)
[2022-08-08 06:53] LABS: Est. Creatinine Clearance* 30.08; Estimated Glomerular Filt Rate 56 ml/min
[2022-08-08 06:54] LABS: Blood Urea Nitrogen* 31 mg/dL (7-30); Carbon Dioxide* 26 mmol/L (20-32); Creatine Kinase* 586 U/L (41-117); Glucose* 104 mg/dL (60-115)
[2022-08-08 06:55] LABS: Magnesium* 2.1 mg/dL (1.5-2.6)
[2022-08-08 06:57] LABS: INR 1.64 (0.91-1.10); Prothrombin Time 20.3 Seconds
[2022-08-08 07:10] LABS: C Reactive Protein* 23.9 mg/dL (0.5-1.0)
[2022-08-08 08:29] LABS: Slide Review Reflex No
[2022-08-08] MEDS: AMLODIPINE 5 MG TABLET PO (08:58)
[2022-08-08] MEDS: BENZONATATE 100 MG CAPSULE PO ×3 (08:58→21:16)
[2022-08-08] MEDS: atenoloL 50 MG TABLET PO (08:59)
[2022-08-08] MEDS: SODIUM CHLORIDE 0.9 % (FLUSH) 10 ML SYRINGE 5 ML IVF ×3 (08:59→23:36)
[2022-08-08] MEDS: guaiFENesin 600 MG TAB.ER.12H PO ×2 (08:59→21:16)
[2022-08-08] MEDS: CARBIDOPA-LEVODOPA 25-100 TABLET 1 TAB PO ×3 (08:59→21:16)
--- NOTE | 2022-08-08 12:46 | P.IMCN_ITS ---
Date of Consult Consult date: 08/08/22 Requesting Physician: Hospitalist Primary Care Provider: Sofia Guerrero MD Consult Narrative Reason for consult: chronic wounds to BLE Narrative: Carmel Chang is a 86 year old female [facility] to [facility] being seen today while hospitalized with sepsis related to bacteremia. Patient has known bilateral lower extremity venous insufficiency and chronic venous ulcerations as well as chronic lymphedema. LLE cellulitis, outlined in skin pen. She does have a bone stimulator that was issue to her by Orthopedics that if she is post use daily to her right ankle. This is part of her treatment plan by orthopedics for her closed right ankle fracture. Her friend is going to bring it from patient's apartment later today. Review of Systems Status of ROS: Reports: 6 or more systems reviewed and unremarkable except as noted in History and below [facility] Medical History (Updated 09/09/22 @ 15:30 by CR Martin) Durable power of assistant district attorney in chart Health care directive on file ?Z78.9 - Other specified health status (ICD-10) Closed right ankle fracture ?S82.891A - Other fracture of right lower leg, initial encounter for closed fracture (ICD-10) Osteoarthritis of right shoulder ?M19.011 - Primary osteoarthritis, right shoulder (ICD-10) Osteoarthritis of left shoulder ?M19.012 - Primary osteoarthritis, left shoulder (ICD-10) Right rotator cuff tear arthropathy ?M75.101 - Unspecified rotator cuff tear or rupture of right shoulder, not specified as traumatic (ICD-10) ?M12.811 - Other specific arthropathies, not elsewhere classified, right shoulder (ICD-10) Osteoarthritis of left knee ?M17.12 - Unilateral primary osteoarthritis, left knee (ICD-10) Chronic diastolic CHF (congestive heart failure), NYHA class 2 ?I50.32 - Chronic diastolic (congestive) heart failure (ICD-10) Parkinson disease ?G20 - Parkinson's disease (ICD-10) Venous stasis ulcers of both lower extremities ?I83.019 - Varicose veins of right lower extremity with ulcer of unspecified site (ICD-10) ?I83.029 - Varicose veins of left lower extremity with ulcer of unspecified site (ICD-10) ?L97.919 - Non-pressure chronic ulcer of unspecified part of right lower leg with unspecified severity (ICD-10) ?L97.929 - Non-pressure chronic ulcer of unspecified part of left lower leg with unspecified severity (ICD-10) Hypertension ?I10 - Essential (primary) hypertension (ICD-10) Urinary tract infection ?N39.0 - Urinary tract infection, site not specified (ICD-10) Ulcer of lower extremity ?L97.909 - Non-pressure chronic ulcer of unspecified part of unspecified lower leg with unspecified severity (ICD-10) Chest pain ?R07.9 - Chest pain, unspecified (ICD-10) Cellulitis of leg ?L03.119 - Cellulitis of unspecified part of limb (ICD-10) Atrial fibrillation ?I48.91 - Unspecified atrial fibrillation (ICD-10) Surgical History H/O excision of mass (09/21/00) ?Z98.890 - Other specified postprocedural states (ICD-10) 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) ?Z96.651 - Presence of right artificial knee joint (ICD-10) Family History Mother High blood pressure Father Dementia Social History What is your current living situation?: I presently have a place to live Problems where you live: no known problems Problems where you live details: none In the past 12 months, utilities in danger of being shut off: unable to answer In the past 12 mos, have been you worried that your food would run out before you had money to buy more?: unable to answer In the past 12 mos, the food you bought just didn't last and you didn't have money to buy more?: unable to answer Highest level of school completed/degree received: high school graduate Smoking Status: Former smoker What tobacco products do you use: cigarettes Smoking quit date/years: >15 years ago Do you use any of these nicotine containing products: None Second hand tobacco smoke exposure: No How often do you have a drink containing alcohol: never AUDIT-C Alcohol total score: 0 Non-prescribed substance use: denies use Caffeine: No How often does anyone, including family, friends and others, physically hurt you : unable to answer How often does anyone, including family, friends and others, insult or talk down to you: unable to answer How often does anyone, including family, friends and others, threaten you with harm: unable to answer How often does anyone, including family, friends and others, scream or curse at you: unable to answer service: No Meds Home Medications and Allergies Home Medications Medication Instructions Recorded Confirmed Type amlodipine 5 mg tablet 5 mg PO QDAY 12/26/21 08/07/22 History atenolol 50 mg tablet 50 mg PO DAILY 12/26/21 08/07/22 History fluoxetine 10 mg capsule 10 mg PO DAILY 12/26/21 08/07/22 History furosemide 40 mg tablet 40 mg PO QAM 12/26/21 08/07/22 History losartan 100 mg tablet 100 mg PO DAILY 12/26/21 08/07/22 History warfarin 5 mg tablet 2.5 - 5 mg PO .UD 12/26/21 08/07/22 History fneifphc-hfqcpsl-kgtn-lutein tablet 1 tab PO 12/31/21 07/01/22 History carbidopa 25 mg-levodopa 100 mg 1 tab PO TID 08/07/22 08/07/22 History tablet oxycodone-acetaminophen 5 mg-325 1 tab PO HS PRN pain 08/07/22 08/07/22 History mg tablet (Percocet) gabapentin 100 mg capsule 100 mg PO TID 08/08/22 08/08/22 History Allergies Allergy/AdvReac Type Severity Reaction Status Date / Time hydrochlorothiazide Allergy Verified 08/07/22 13:42 Sulfa (Sulfonamide Allergy Rash Verified 08/07/22 13:42 Antibiotics) Exam Narrative: Exam Narrative: General: NAD, Alert, lying in bed Pulmonary: cough, unlabored, symmetrical rise, speaking in full sentences Skin: Lower extremities with generalized non-pitting edema. bilateral calves with hyperplasia, hyper pigmentation,, dry scaling- consistent findings for chronic lymphedema Venous ulcerations to BLE: RLE: * Full-thickness right leg pretibal wound measuring 2cmX1.3cmX0.2cm, drainage small serosang * Right medial distal calf multiple full-thickness small open areas, clustered for measurements- [id number], drainage small serosang LLE: * Full-thickness left leg pretibial wound 1.6cmX1.4cmX0.2cm measuring * Left lateral calf with multiple full-thickness small open area, largest measuring 1cm2 Pedal pulses: palpable, feet warm, color within normal limits Const: Vital Signs, click to edit/add: Vital Signs - 24 hr 08/07/22 16:16 08/07/22 16:16 08/07/22 17:05 Temperature 98.4 F 98.4 F Pulse Rate [Left B rachial] 92 92 Pulse Rate [Left R adial] Respiratory Rate 20 20 Blood Pressure [Le ft Arm] 149/72 H 149/72 H Pulse Oximetry 92 92 97 Oxygen Delivery Me thod Room Air Room Air Room Air Oxygen Flow Rate 08/07/22 17:05 08/07/22 21:02 08/07/22 21:20 Temperature 99.5 F Pulse Rate [Left B rachial] 93 Pulse Rate [Left R adial] Respiratory Rate 20 Blood Pressure [Le ft Arm] 103/62 Pulse Oximetry 92 86 L 92 Oxygen Delivery Me thod Room Air Room Air Nasal Cannula Oxygen Flow Rate 2 08/07/22 23:00 08/08/22 03:00 08/08/22 07:59 Temperature 98.3 F 97.8 F 97.8 F Pulse Rate [Left B rachial] 67 71 Pulse Rate [Left R adial] 70 Respiratory Rate 22 18 18 Blood Pressure [Le ft Arm] 101/51 L 98/51 L 117/66 Pulse Oximetry 92 94 97 Oxygen Delivery Me thod Room Air Room Air Nasal Cannula Oxygen Flow Rate 2 2 08/08/22 11:28 Temperature 97.6 F Pulse Rate [Left B rachial] Pulse Rate [Left R adial] 79 Respiratory Rate 20 Blood Pressure [Le ft Arm] 119/73 Pulse Oximetry 94 Oxygen Delivery Me thod Room Air Oxygen Flow Rate Documenting provider has reviewed patient's vital signs: yes Labs Labs: Short CBC 08/08/22 Range/Units 05:40 WBC 9.59 (4.50-11.00) K/uL Hgb 11.4 L (12.0-16.0) gm/dL Hct 35.1 (33.0-51.0) % Plt Count 199 (140-440) K/uL BMP 08/08/22 05:40 Sodium 136 Potassium 3.0 L Chloride 102 Carbon Dioxide 26 BUN 31 H Creatinine 1.0 Glucose 104 Calcium 8.0 L Cardiac Enzymes 08/07/22 08/08/22 Range/Units 11:31 05:40 Total Creatine Kinase 1319 H 586 H (41-117) U/L Troponin I 0.04 (0.01-0.04) ng/mL Urine 08/07/22 Range/Units 12:23 Urine Color [place] A (Yellow) Urine Appearance Cloudy A (Clear) Urine pH 6.0 (5.0-8.5) Ur Specific [place] 1.020 (1.000-1.030) Urine Protein 3+ A (Negative) Urine Glucose (UA) Negative (Negative) Assessment and Plan Assessment and plan (1) Cellulitis of left lower leg: Problem comment: -Ancef 1 g given in the ED -wound care to came to floor and changed her wraps 08/08 - LLE erythema much worse yesterday and today. Zosyn started 08/07, vanco added 08/10 - US LE neg for DVT on 08/07. Status: Acute (2) Venous stasis ulcers of both lower extremities: Problem comment: At home: Followed by Navdeep Peña MD. She does wear compression stockings. No rest pain or claudication. She does use lymphedema pumps daily, double layer compression wraps and leg elevation. plan is for sclerotherapy of superficial incompetent veins bilaterally (scheduled in July 2022) Status: Chronic (3) Lymphedema: Problem comment: redress unna boots, use HELLEN wraps if unna boots unavailable - stop amlodipine Status: Chronic Plan cleanse with vashe or normal saline --Apply zinc barrier cream to lindsay-wound (this was given to nursing, should be available at patient's bedside). -Cover open areas with urgotol or xeroform, cut larger than wound size (okay to place on healthy skin)- use whatever you have available on the unit. -Cut aqualcel to size of wound and lay this over the urgotol/xeroform (there is plenty of aqualcel at the bedside for the next 3-4 dressing changes). -Change dressing EOD & PRN cut out area in coban 2-layer wrap (reference wrap that is currently on patient) so patient can continue to utilize bone stimulator daily while inpatient.
--- NOTE | 2022-08-08 14:02 | NUTR.NU ---
High Protein: Nutrition education was provided to patient on high protein for wound healing. ?Discussed foods that are high in protein, as well as the use of nutrition supplements to help meet protein needs. Handout reviewed provided to patient from AND High-Protein list. Pt is using yogurt and fresh fruit for breakfast. Often has a frozen TV dinner for a lunch or dinner option and will read the label looking at protein Patient verbalized understanding. Pt mentioned financial concerns. RDN contacted social work and requested they meet with patient to explore food resource options. RDN's contact information was provided and patient was encouraged to contact RDN with questions.
--- NOTE | 2022-08-08 14:13 | P.IMPN_ITS ---
Progress Note: A&P Assessment and plan (1) Cellulitis of left lower leg: Problem details: -Ancef 1 g given in the ED -now on zosyn and azithromycin. -will get wound care to come to floor and assess for any recent acute changes (I'm concerned this is not the source of infection) Status: Acute (2) Venous stasis ulcers of both lower extremities: Problem details: At home: Followed by Navdeep Peña MD. She does wear compression stockings. No rest pain or claudication. She does use lymphedema pumps daily, double layer compression wraps and leg elevation. plan is for sclerotherapy of superficial incompetent veins bilaterally (scheduled in July 2022) Status: Acute (3) Lymphedema: Status: Acute (4) Acute hypokalemia: Problem details: 3.3 getting normal saline - will follow Status: Acute (5) Parkinson disease: Problem details: mildly progressive Parkinson's disease- on sinemet last neurology in 05/22 (Pipe Scott MD ) Status: Acute (6) Chronic atrial fibrillation: Problem details: -OAC and rate control (atenolol) Status: Acute (7) Warfarin anticoagulation: Problem details: -afib -daily INR -continue warfarin Status: Acute (8) Morbid obesity: Problem details: BMI 46.9 Status: Acute (9) Chronic diastolic CHF (congestive heart failure), NYHA class 2: Problem details: -lasix, potassium, warfarin, atenolol, norvasc = home regimen -BNP 9700 (no previous found in record), potassium mild depressed -will update echo -monitor on telemetry -rate controlled AFIB -initial trop in ED: 0.4 Echo August 2020 Final Impressions: 1. Technically limited exam. 2. Normal left ventricular size, mildly increased wall thickness, normal global systolic function, calculated EF of 71 %. 3. Right ventricular cavity size is normal, global systolic RV function is normal. 4. Severely enlarged left atrium. 5. The aortic valve is trileaflet and sclerotic, mild stenosis and trivial regurgitation. The aortic valve peak velocity is 2.3 m/s, the peak gradient is 21 mmHg, and the mean gradient is 12 mmHg. The aortic valve area is 1.57 cm?? with a dimensionless index of 0.54. The stroke volume index is 58.5 ml/m??. 6. The mitral valve is sclerotic, mild mitral regurgitation. 7. Tricuspid regurgitation is mild regurgitation, the estimated right ventricular systolic pressure is 30 mmHg plus right atrial pressure. Status: Acute (10) Essential hypertension: Problem details: atenolol, norvasc Status: Acute (11) Chronic pain: Problem details: osteoarthritis, takes percocet nightly Status: Acute (12) Opioid dependence: Status: Acute (13) Unstable gait: Status: Acute (14) At risk for falls: Status: Acute (15) Physical deconditioning: Status: Acute (16) Physical debility: Status: Acute (17) Rhabdomyolysis: Problem details: Elevated CK, AST, ALT Status: Acute Plan 1. Reviewed impression with patient. Answered her questions. 2. Continue with current treatment for cellulitis with piperacillin and tazobactam intravenously. 3. Continue with empiric treatment for atypical pneumonia with azithromycin. 4. Her physical debility and deconditioning in combination with her chronic medical problems are currently prohibitive for her to return to her assisted living setting. Our social services aide staff have establish from the [facility] staff that they are willing to accept the patient into their transitional care service residential facility on Thursday or Thursday of next week if patient is ready. 5. Wound care has consulted given recommendations for management of her stasis ulcers while in hospital and be on. 6. Will continue to monitor labs. 7. Saline lock IV. 8. Continue to work with physical therapy, occupational therapy, social services aide, and nursing staff. 9. Patient has DNR DNI resuscitation status. Time Spent With Patient Total time spent: 45 minutes Subjective Time Seen by Provider: 09:00 Date Seen: 08/08/22 Interval history: 86-year-old woman who presented with increased weakness, confusion, and ongoing cough. Found to have bilateral lower extremity lymphedema with chronic inflammatory changes and venous stasis ulcers. Left leg warm, red with suggestion of active cellulitis. Started on piperacillin with tazobactam IV plus azithromycin, despite negative CT angiogram for PE or infiltrate. She indicates she is feeling better today. Still weak. Confusion seems to have resolved. Cough is much improved. Denies chest heaviness, pressure, tightness, or pain. Denies syncope or near- syncope. Denies nausea or vomiting. Denies palpitations or fluttering. Denies dyspnea at rest. Has baseline dyspnea with exertion. Denies paroxysmal nocturnal dyspnea or orthopnea. Denies claudication. Exam Narrative: Exam Narrative: Appears comfortable and in no acute distress. Vision and hearing are grossly normal. Alert and oriented to self, place, time, mostly to situation. Articulate, friendly, cooperative. Mood and affect are congruent. Lungs are clear to auscultation. Heart tones with regular rhythm. Abdomen is obese with active bowel sounds. Both legs demonstrate chronic lymphedema with inflammatory changes. Both have small superficial venous stasis ulcers. Left leg has erythema extending all the way up to the posterior thigh, warm to touch. It is extremely difficult for her to transfer or ambulate. She requires assist of 2, gait belt, and walker to precariously transfer and ambulate a few steps only. Const: Vital Signs, click to edit/add: Vital Signs - 24 hr 08/07/22 16:16 08/07/22 16:16 08/07/22 17:05 Temperature 98.4 F 98.4 F Pulse Rate [Left B rachial] 92 92 Pulse Rate [Left R adial] Respiratory Rate 20 20 Blood Pressure [Le ft Arm] 149/72 H 149/72 H Pulse Oximetry 92 92 97 Oxygen Delivery Me thod Room Air Room Air Room Air Oxygen Flow Rate 08/07/22 17:05 08/07/22 21:02 08/07/22 21:20 Temperature 99.5 F Pulse Rate [Left B rachial] 93 Pulse Rate [Left R adial] Respiratory Rate 20 Blood Pressure [Le ft Arm] 103/62 Pulse Oximetry 92 86 L 92 Oxygen Delivery Me thod Room Air Room Air Nasal Cannula Oxygen Flow Rate 2 08/07/22 23:00 08/08/22 03:00 08/08/22 07:59 Temperature 98.3 F 97.8 F 97.8 F Pulse Rate [Left B rachial] 67 71 Pulse Rate [Left R adial] 70 Respiratory Rate 22 18 18 Blood Pressure [Le ft Arm] 101/51 L 98/51 L 117/66 Pulse Oximetry 92 94 97 Oxygen Delivery Me thod Room Air Room Air Nasal Cannula Oxygen Flow Rate 2 2 08/08/22 11:28 Temperature 97.6 F Pulse Rate [Left B rachial] Pulse Rate [Left R adial] 79 Respiratory Rate 20 Blood Pressure [Le ft Arm] 119/73 Pulse Oximetry 94 Oxygen Delivery Me thod Room Air Oxygen Flow Rate Labs Labs: Laboratory Results - last 24 hr 08/07/22 08/07/22 08/07/22 11:31 15:31 16:31 WBC RBC Hgb Hct MCV MCH MCHC Plt Count Diff Slide Review INR Sodium Potassium Chloride Carbon Dioxide BUN Creatinine Estimated Creat Clear Estimated GFR Glucose Lactate Calcium Magnesium Total Creatine Kinase 1319 H Troponin I 0.04 C-Reactive Protein Procalcitonin 13.00 H SARS-CoV-2 (PCR) Influenza Type A (PCR) Influenza Type B (PCR) RSV (PCR) Lab Acknowledgement Test Added Test Added 08/07/22 08/07/22 08/08/22 16:40 19:06 05:40 WBC 9.59 RBC 3.64 L Hgb 11.4 L Hct 35.1 MCV 96 MCH 31 MCHC 33 Plt Count 199 Diff Slide Review Not Reportable INR 1.64 H Sodium 136 Potassium 3.0 L Chloride 102 Carbon Dioxide 26 BUN 31 H Creatinine 1.0 Estimated Creat Clear 30.08 Estimated GFR 56 Glucose 104 Lactate 2.1 H Calcium 8.0 L Magnesium 2.1 Total Creatine Kinase 586 H Troponin I C-Reactive Protein 23.9 H Procalcitonin 10.20 H SARS-CoV-2 (PCR) Negative SARS-CoV-2 Influenza Type A (PCR) Negative PCR FLU A Influenza Type B (PCR) Negative PCR FLU B RSV (PCR) Negative PCR RSV Lab Acknowledgement
--- NOTE | 2022-08-08 16:12 | PC.SOCIAL ---
Therapy recommendation is short-term rehab. Met with pt in pt's room. Pt is from [facility] and would like to go to [facility]. phone call to Tianna from [facility]. [facility] will assess for possible placement. Faxed referral packet to [facility]. Social work will follow up on Thursday with updated notes.
--- NOTE | 2022-08-08 16:13 | REH.OT ---
OT: Spoke with pt x2 who declines getting OOB in pm due to fatigue, requesting to rest, despite encouragement to progress activity level. Pt did greed to try to work toward sitting up in chair for all meals to be OOB at least 3x/day. She is aware she is requiring a higher level of care with recommendation for SNF with therapies at d/c. Will reschedule eval.
[2022-08-08] MEDS: POTASSIUM CHLORIDE 10 MEQ CAPSULE ER 40 MEQ PO ×2 (16:28→19:53)
[2022-08-08] MEDS: AZITHROMYCIN 250 MG TABLET PO (16:33)
[2022-08-08] MEDS: WARFARIN 2.5 MG TABLET PO (16:33)
[2022-08-08 16:42] LABS: HCO3 VBG 25 mmol/L (21-28); Hematocrit 37.9 % (33.0-51.0); Hemoglobin* 12.1 gm/dL (12.0-16.0); Mean Corpuscular HGB Conc 32 gm/dL (32-36); Mean Corpuscular Hemoglobin 31 pg (26-34); Mean Corpuscular Volume 97 fL (80-100); PCO2 VBG 41 mmHG (40-50); PO2 VBG 28.1 mmHG (25-47); Platelet Count* 206 K/uL (140-440); Red Blood Count 3.92 m/uL (4.00-5.20); White Blood Count* 11.37 K/uL (4.50-11.00)
[2022-08-08 16:43] LABS: Slide Review Reflex No
[2022-08-08 17:09] LABS: Magnesium* 2.2 mg/dL (1.5-2.6)
[2022-08-08] MEDS: GABAPENTIN 100 MG CAPSULE PO ×2 (17:40→21:16)
--- NOTE | 2022-08-08 18:40 | PC.NURSE ---
End of Shift Summary: Pt pleasant and cooperative throughout shift, reports missing her who a year ago and wishes he was here to support her. Intermittent crying for short periods of time. Pt remained on RA throughout shift, O2 sats remained >93%. BSC utilized, pt has difficulty walking/pivoting. EZ stand used for last toileting, pt tolerated well. Pt reported pain between 4-6/10, mostly at ankles. Yellow socks removed while pt in bed, pt reports improvement in pain. Dressing changed by wound care today on , next dressing change due on Thursday. Plan to discharge to [facility] on Thursday.
[2022-08-08 21:13] LABS: C Reactive Protein* 37.6 mg/dL (0.5-1.0)
[2022-08-08] MEDS: 0.9 % SODIUM CHLORIDE 250 ml IV (23:36)
[2022-08-09] VITALS (9 sets, daily range): BP systolic 120–156; BP diastolic 59–114; PULSE 60–107; RESP 18; TEMP 36.3–36.6; O2SAT 91–100
[2022-08-09] MEDS: ACETAMINOPHEN 325 MG TABLET PO ×2 (04:10→13:45)
[2022-08-09] MEDS: MELATONIN 3 MG TABLET PO (04:10)
[2022-08-09] MEDS: PIPERACILLIN/TAZOBACTAM 3.375 GM in 0.9 % SODIUM CHLORIDE Mini-bag 100 ML IVPB ×4 (06:06→23:53)
[2022-08-09 06:32] LABS: Lactate* 0.8 mmol/L (0.5-1.9)
[2022-08-09 06:38] LABS: Hematocrit 33.4 % (33.0-51.0); Hemoglobin* 10.7 gm/dL (12.0-16.0); Mean Corpuscular HGB Conc 32 gm/dL (32-36); Mean Corpuscular Hemoglobin 31 pg (26-34); Mean Corpuscular Volume 97 fL (80-100); Platelet Count* 190 K/uL (140-440); Red Blood Count 3.46 m/uL (4.00-5.20); White Blood Count* 11.08 K/uL (4.50-11.00)
[2022-08-09 06:39] LABS: Slide Review Reflex No
[2022-08-09 06:50] LABS: INR 2.25 (0.91-1.10)
--- NOTE | 2022-08-09 07:01 | PC.NURSE ---
Shift note: Pt could tolerate transfer with EZ stand and A2. Complained of intermittent pain to the ankle and PRN medication given 2x. Urinary catheter is patent and draining dark frieda colored urine urine with normal odor. Pt was awake most of the night crying about the of her . Vitally stable. Pt had i medium size loose BM tonight.
[2022-08-09 07:09] LABS: Chloride* 105 mmol/L (96-114); Potassium* 3.7 mmol/L (3.6-5.1); Sodium* 134 mmol/L (135-149)
[2022-08-09 07:11] LABS: Est. Creatinine Clearance* 30.08; Estimated Glomerular Filt Rate 56 ml/min
[2022-08-09 07:12] LABS: Alanine Aminotransferase* 10 U/L (4-35); Aspartate Amino Transferase* 52 U/L (12-35); Blood Urea Nitrogen* 32 mg/dL (7-30); Carbon Dioxide* 22 mmol/L (20-32); Creatine Kinase* 159 U/L (41-117); Glucose* 89 mg/dL (60-115)
[2022-08-09 07:13] LABS: Calcium* 8.1 mg/dL (8.4-10.6); Magnesium* 2.3 mg/dL (1.5-2.6)
[2022-08-09 07:29] LABS: Procalcitonin* 7.92 ng/mL (<0.50)
[2022-08-09 07:33] LABS: C Reactive Protein* 22.8 mg/dL (0.5-1.0)
[2022-08-09] MEDS: atenoloL 50 MG TABLET PO (08:30)
[2022-08-09] MEDS: CARBIDOPA-LEVODOPA 25-100 TABLET 1 TAB PO ×3 (08:30→20:22)
[2022-08-09] MEDS: BENZONATATE 100 MG CAPSULE PO ×3 (08:31→20:21)
[2022-08-09] MEDS: GABAPENTIN 100 MG CAPSULE PO ×3 (08:31→20:22)
[2022-08-09] MEDS: guaiFENesin 600 MG TAB.ER.12H PO ×2 (08:31→20:23)
[2022-08-09] MEDS: SODIUM CHLORIDE 0.9 % (FLUSH) 10 ML SYRINGE 5 ML IVF ×2 (08:31→20:22)
[2022-08-09] MEDS: AMLODIPINE 5 MG TABLET PO (08:31)
[2022-08-09] MEDS: FLUOXETINE HCL 10 MG CAPSULE PO (08:31)
--- NOTE | 2022-08-09 12:24 | PM.IMPN1 ---
Progress Note: A&P Assessment and plan (1) Cellulitis of left lower leg: Problem details: -Ancef 1 g given in the ED -now on zosyn and azithromycin. -wound care to came to floor and changed her wraps yesterday Status: Acute (2) Venous stasis ulcers of both lower extremities: Problem details: At home: Followed by Navdeep Peña MD. She does wear compression stockings. No rest pain or claudication. She does use lymphedema pumps daily, double layer compression wraps and leg elevation. plan is for sclerotherapy of superficial incompetent veins bilaterally (scheduled in July 2022) Status: Chronic (3) Lymphedema: Status: Chronic (4) Acute hypokalemia: Status: Resolved (5) Parkinson disease: Problem details: mildly progressive Parkinson's disease- on sinemet last neurology in 05/22 (Pipe Scott MD ) Status: Chronic (6) Chronic atrial fibrillation: Problem details: -OAC and good rate control (atenolol) Status: Chronic (7) Warfarin anticoagulation: Problem details: -afib -daily INR, within therapeutic range between 2 and 3 -continue warfarin Status: Chronic (8) Morbid obesity: Problem details: BMI 46.9 Status: Chronic (9) Chronic diastolic CHF (congestive heart failure), NYHA class 2: Problem details: -lasix, potassium, warfarin, atenolol, norvasc = home regimen -BNP 9700 (no previous found in record), potassium mild depressed -will update echo -monitor on telemetry -rate controlled AFIB -initial trop in ED: 0.4 Echo 08/08/2022 Normal LV size, mildly increased wall thickness, normal global systolic function with estimated EF of 60-65%. Mildly enlarged left atrium. Aortic valve is trileaflet, sclerotic and calcified, mild stenosis (mean gradient of 12 mm Hg) and no regurgitation. Mitral valve is sclerotic, mild mitral regurgitation. Mild to moderate tricuspid regurg did station. Normal estimated pulmonary pressures by tricuspid regurgitation velocity and right atrial pressure (23 mm Hg plus RAP). Compared to the prior study of 09/12/2020 there is no significant change. Status: Chronic (10) Essential hypertension: Problem details: atenolol, norvasc Status: Chronic (11) Chronic pain: Problem details: osteoarthritis, takes percocet nightly Status: Chronic (12) Opioid dependence: Status: Chronic (13) Unstable gait: Problem details: Continue PT and OT, anticipate short term rehab at discharge Status: Acute (14) At risk for falls: Status: Acute (15) Physical deconditioning: Status: Chronic (16) Physical debility: Status: Chronic (17) Rhabdomyolysis: Problem details: Elevated CK, AST, ALT - 6/10 CK improving. Cr stable. Okay to stop IVF. Status: Acute Plan - Continue with current treatment for cellulitis with piperacillin and tazobactam intravenously. - Continue with empiric treatment for atypical pneumonia with azithromycin. - Her physical debility and deconditioning in combination with her chronic medical problems are currently prohibitive for her to return to her assisted living setting. Our social service director staff have establish from the [facility] staff that they are willing to accept the patient into their transitional care service residential facility on Thursday or Thursday of next week if patient is ready. - Wound care has consulted given recommendations for management of her stasis ulcers while in hospital and be on. 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 She was admitted for left lower extremity cellulitis and wound care came yesterday to redo her dressings. She notes that she has a little bit better today and was able to get up to a commode which she feels that she was unable to do at all yesterday. She is hoping to go to an are see on Thursday for short-term rehab. She has no new complaints today. Her niece and nephew were in the room with her. Exam Narrative: Exam Narrative: General: No acute distress. Awake, alert, oriented. No pallor. No jaundice. Oropharynx: Clear. Mucous membranes moist. Cardiovascular: Regular rate and rhythm. No murmurs, gallops, or rubs. Respiratory: Clear to auscultation bilaterally. No wheezes or crackles. Abdomen: Bowel sounds present. Soft, nondistended, nontender. Extremities: Chronic lymphedema with lymphedema wraps in place up to knees bilaterally. Some small superficial ulcers are visible near the heels where the wraps have been cut away to provide mobility. Left leg has some chronic changes, but erythema has resolved and is no longer present in the area within the lines drawn on her left leg. Const: Vital Signs, click to edit/add: Vital Signs - 24 hr 08/08/22 15:00 08/08/22 18:46 08/08/22 19:00 Temperature 98.8 F 98.5 F Pulse Rate 70 Pulse Rate [Left R adial] 80 70 Respiratory Rate 18 18 Blood Pressure [Le ft Arm] 135/81 134/80 Pulse Oximetry 98 90 Oxygen Delivery Me thod Room Air Room Air 08/08/22 23:00 08/08/22 23:00 08/08/22 23:30 Temperature 98.5 F Pulse Rate 65 Pulse Rate [Left R adial] 71 71 Respiratory Rate 18 18 Blood Pressure [Le ft Arm] 114/66 Pulse Oximetry 90 Oxygen Delivery Me thod Room Air 08/09/22 02:35 08/09/22 07:00 08/09/22 11:00 Temperature 97.6 F 97.6 F 97.9 F Pulse Rate Pulse Rate [Left R adial] 77 66 64 Respiratory Rate 18 18 18 Blood Pressure [Le ft Arm] 136/67 129/94 H 120/84 Pulse Oximetry 91 94 95 Oxygen Delivery Me thod Room Air Room Air Room Air Labs Labs: Laboratory Results - last 24 hr 08/08/22 08/09/22 16:35 05:50 WBC 11.37 H 11.08 H RBC 3.92 L 3.46 L Hgb 12.1 10.7 L Hct 37.9 33.4 MCV 97 97 MCH 31 31 MCHC 32 32 Plt Count 206 190 INR 2.25 H VBG pH 7.400 VBG pCO2 41 VBG pO2 28.1 VBG HCO3 25 Sodium 134 L Potassium 3.7 Chloride 105 Carbon Dioxide 22 BUN 32 H Creatinine 1.0 Estimated Creat Clear 30.08 Estimated GFR 56 Glucose 89 Lactate 0.8 Calcium 8.1 L Magnesium 2.2 2.3 AST 52 H ALT 10 Total Creatine Kinase 159 H C-Reactive Protein 37.6 H 22.8 H Procalcitonin 7.92 H
[2022-08-09 15:25] LABS: HCO3 VBG 22 mmol/L (21-28); PCO2 VBG 35 mmHG (40-50); PO2 VBG 61.8 mmHG (25-47)
[2022-08-09 15:28] LABS: Hematocrit 33.5 % (33.0-51.0); Hemoglobin* 10.7 gm/dL (12.0-16.0); Mean Corpuscular HGB Conc 32 gm/dL (32-36); Mean Corpuscular Hemoglobin 31 pg (26-34); Mean Corpuscular Volume 97 fL (80-100); Platelet Count* 192 K/uL (140-440); Red Blood Count 3.45 m/uL (4.00-5.20); White Blood Count* 11.35 K/uL (4.50-11.00)
[2022-08-09 15:31] LABS: Slide Review Reflex No
[2022-08-09 15:55] LABS: Magnesium* 2.4 mg/dL (1.5-2.6)
[2022-08-09 16:11] LABS: C Reactive Protein* 17.9 mg/dL (0.5-1.0)
[2022-08-09] MEDS: AZITHROMYCIN 250 MG TABLET PO (17:00)
[2022-08-09] MEDS: WARFARIN 2.5 MG TABLET PO (17:00)
--- NOTE | 2022-08-09 19:12 | PC.NURSE ---
Pt pleasant and cooperative throughout shift, pivoting and transfering with gait belt and walker to commode. x2 BM, Fox catheter patent with 1150cc out. Pain rated between 3-6/10 at BLE, improved with Tylenol and position. Pt reports discomfort with dressing stating it's too tight in certain areas. Dressing was rolling down slightly behind pt knees. RN adjusted dressing, pain improved.
[2022-08-09] MEDS: OxyCODONE/APAP 5-325 TABLET 1 TAB PO (20:25)
[2022-08-09] MEDS: 0.9 % SODIUM CHLORIDE 250 ml IV (23:53)
[2022-08-10] VITALS (8 sets, daily range): BP systolic 110–174; BP diastolic 63–78; PULSE 61–81; RESP 18; TEMP 36.6–37.1; O2SAT 88–93
[2022-08-10] MEDS: ACETAMINOPHEN 325 MG TABLET PO ×3 (04:03→18:38)
[2022-08-10] MEDS: MELATONIN 3 MG TABLET PO ×2 (04:06→20:44)
[2022-08-10] MEDS: PIPERACILLIN/TAZOBACTAM 3.375 GM in 0.9 % SODIUM CHLORIDE Mini-bag 100 ML IVPB ×4 (05:55→23:26)
--- NOTE | 2022-08-10 06:40 | PC.NURSE ---
Shift note: Pt is doing well. Able to ambulate with 2 assist, walker and GB. Pt have occasional confusion and moaning intermittently. T/R Q2h. Minimal pain which was managed with Tylenol. Vitally stable.
[2022-08-10 06:50] LABS: Hematocrit 34.1 % (33.0-51.0); Hemoglobin* 10.9 gm/dL (12.0-16.0); Mean Corpuscular HGB Conc 32 gm/dL (32-36); Mean Corpuscular Hemoglobin 31 pg (26-34); Mean Corpuscular Volume 97 fL (80-100); Platelet Count* 219 K/uL (140-440); Red Blood Count 3.53 m/uL (4.00-5.20); Slide Review Reflex No; White Blood Count* 15.31 K/uL (4.50-11.00)
[2022-08-10 07:03] LABS: Chloride* 102 mmol/L (96-114); Potassium* 3.1 mmol/L (3.6-5.1); Sodium* 133 mmol/L (135-149)
[2022-08-10 07:04] LABS: INR 2.63 (0.91-1.10); Prothrombin Time 29.4 Seconds
[2022-08-10 07:06] LABS: Carbon Dioxide* 23 mmol/L (20-32); Creatinine* 0.9 mg/dL (0.5-1.5); Est. Creatinine Clearance* 30.08; Estimated Glomerular Filt Rate 63 ml/min
[2022-08-10 07:07] LABS: Blood Urea Nitrogen* 25 mg/dL (7-30); Calcium* 8.1 mg/dL (8.4-10.6); Glucose* 102 mg/dL (60-115); Magnesium* 2.2 mg/dL (1.5-2.6)
[2022-08-10 07:24] LABS: Procalcitonin* 3.75 ng/mL (<0.50)
[2022-08-10 07:25] LABS: C Reactive Protein* 14.6 mg/dL (0.5-1.0)
[2022-08-10] MEDS: atenoloL 50 MG TABLET PO (09:06)
[2022-08-10] MEDS: FLUOXETINE HCL 10 MG CAPSULE PO (09:06)
[2022-08-10] MEDS: GABAPENTIN 100 MG CAPSULE PO ×3 (09:07→20:43)
[2022-08-10] MEDS: guaiFENesin 600 MG TAB.ER.12H PO ×2 (09:07→20:43)
[2022-08-10] MEDS: CARBIDOPA-LEVODOPA 25-100 TABLET 1 TAB PO ×3 (09:07→20:43)
[2022-08-10] MEDS: AMLODIPINE 5 MG TABLET PO (09:07)
[2022-08-10] MEDS: BENZONATATE 100 MG CAPSULE PO ×3 (09:07→20:44)
[2022-08-10] MEDS: SODIUM CHLORIDE 0.9 % (FLUSH) 10 ML SYRINGE 5 ML IVF ×3 (09:08→20:46)
--- NOTE | 2022-08-10 10:31 | REH.OT ---
OT arrived to pt's room, nursing had just assisted pt to bed (using lift). Pt was having increased pain and declined to participate in OT today. Nursing noted that pt's cellulitis had worsened and they were administering pain meds and recommended holding treatment for today.
--- NOTE | 2022-08-10 10:52 | REH.PT ---
Per nursing hold treatment today as pt's cellulitis has worsened and they were administering pain meds. Pt was having increased pain and declined to participate in therapy for today.
--- NOTE | 2022-08-10 15:40 | PM.IMPN1 ---
Progress Note: A&P Assessment and plan (1) Cellulitis of left lower leg: Problem details: -Ancef 1 g given in the ED -wound care to came to floor and changed her wraps 08/08 - LLE erythema much worse today. Change antibiotics to zosyn + vanco Status: Acute (2) Venous stasis ulcers of both lower extremities: Problem details: At home: Followed by Navdeep Peña MD. She does wear compression stockings. No rest pain or claudication. She does use lymphedema pumps daily, double layer compression wraps and leg elevation. plan is for sclerotherapy of superficial incompetent veins bilaterally (scheduled in July 2022) Status: Chronic (3) Lymphedema: Problem details: redress unna boots, use HELLEN wraps if unna boots unavailable Status: Chronic (4) Acute hypokalemia: Problem details: give K supplementation, check magnesium. Consider daily K supplement Status: Acute (5) Parkinson disease: Problem details: mildly progressive Parkinson's disease- on sinemet last neurology in 05/22 (Pipe Scott MD ) Status: Chronic (6) Chronic atrial fibrillation: Problem details: -OAC and good rate control (atenolol) Status: Chronic (7) Warfarin anticoagulation: Problem details: -afib -daily INR, within therapeutic range between 2 and 3 -continue warfarin Status: Chronic (8) Morbid obesity: Problem details: BMI 46.9 Status: Chronic (9) Chronic diastolic CHF (congestive heart failure), NYHA class 2: Problem details: -lasix, potassium, warfarin, atenolol, norvasc = home regimen -BNP 9700 (no previous found in record), potassium mild depressed -rate controlled AFIB -initial trop in ED: 0.4 Echo 08/08/2022 Normal LV size, mildly increased wall thickness, normal global systolic function with estimated EF of 60-65%. Mildly enlarged left atrium. Aortic valve is trileaflet, sclerotic and calcified, mild stenosis (mean gradient of 12 mm Hg) and no regurgitation. Mitral valve is sclerotic, mild mitral regurgitation. Mild to moderate tricuspid regurg did station. Normal estimated pulmonary pressures by tricuspid regurgitation velocity and right atrial pressure (23 mm Hg plus RAP). Compared to the prior study of 09/12/2020 there is no significant change. Status: Chronic (10) Essential hypertension: Problem details: atenolol, norvasc Status: Chronic (11) Chronic pain: Problem details: osteoarthritis, takes percocet nightly Status: Chronic (12) Opioid dependence: Status: Chronic (13) Unstable gait: Problem details: Continue PT and OT, anticipate short term rehab at discharge Status: Acute (14) At risk for falls: Status: Acute (15) Physical deconditioning: Status: Chronic (16) Physical debility: Status: Chronic (17) Rhabdomyolysis: Problem details: Elevated CK, AST, ALT - 6/10 CK improving. Cr stable. IVF discontinued Status: Acute Plan - Her physical debility and deconditioning in combination with her chronic medical problems are currently prohibitive for her to return to her assisted living setting. Our social contact worker staff have establish from the [facility] staff that they are willing to accept the patient into their transitional care service [facility] facility on Thursday or Thursday of next week if patient is ready. - Wound care has consulted given recommendations for management of her stasis ulcers while in hospital and be on. Subjective Time Seen by Provider: 10:03 Date Seen: 08/10/22 Interval history: Carmel feels more tired today. She is also more painful in the left lower extremity. She folded down her Unna boots because they were hurting her. She also complains of pain from the catheter. Exam Narrative: Exam Narrative: General: No acute distress. Awake, alert, oriented. Cardiovascular: Irregularly irregular. No murmurs, gallops, or rubs. Respiratory: Clear to auscultation bilaterally. No wheezes or crackles. Abdomen: Bowel sounds present. Soft, nondistended, nontender. Extremities: Chronic lymphedema with lymphedema wraps folded over bilaterally. I helped the nurses remove these. Carmel has bright red erythema enlarged tender patches over her left leg that was not present yesterday. It is present in many areas, including outside the lines that were drawn previously. It is the worst in her upper thigh. Does not extend into her buttocks or genitalia. External genitalia have white nystatin powder on them, but there is no erythema or ulceration. Multiple venous ulcers noted over the lower extremities. Chronic venous stasis changes also noted. Const: Vital Signs, click to edit/add: Vital Signs - 24 hr 08/09/22 17:01 08/09/22 19:00 08/09/22 23:00 Temperature 97.8 F 97.4 F L Pulse Rate Pulse Rate [Left R adial] 64 71 Respiratory Rate 18 18 Blood Pressure [Le ft Arm] 123/59 L Pulse Oximetry 94 Oxygen Delivery Me thod Room Air 08/09/22 23:00 08/09/22 23:00 08/10/22 03:00 Temperature 97.9 F 97.9 F Pulse Rate 63 Pulse Rate [Left R adial] 71 81 Respiratory Rate 18 18 Blood Pressure [Le ft Arm] 132/90 H 122/74 Pulse Oximetry 94 88 Oxygen Delivery Me thod Room Air Room Air 08/10/22 07:00 08/10/22 07:00 08/10/22 11:00 Temperature 97.8 F 98.2 F Pulse Rate Pulse Rate [Left R adial] 63 77 Respiratory Rate 18 18 18 Blood Pressure [Le ft Arm] 127/64 124/63 Pulse Oximetry 93 93 Oxygen Delivery Me thod Room Air Room Air 08/10/22 11:29 08/10/22 15:00 08/10/22 15:00 Temperature 98.8 F Pulse Rate 61 Pulse Rate [Left R adial] 74 74 Respiratory Rate 18 18 Blood Pressure [Le ft Arm] 174/78 H Pulse Oximetry 91 Oxygen Delivery Me thod Room Air 08/10/22 15:17 Temperature Pulse Rate 71 Pulse Rate [Left R adial] Respiratory Rate Blood Pressure [Le ft Arm] Pulse Oximetry Oxygen Delivery Me thod Labs Labs: Laboratory Results - last 24 hr 08/09/22 08/10/22 15:21 06:00 WBC 15.31 H RBC 3.53 L Hgb 10.9 L Hct 34.1 MCV 97 MCH 31 MCHC 32 Plt Count 219 INR 2.63 H Sodium 133 L Potassium 3.1 L Chloride 102 Carbon Dioxide 23 BUN 25 Creatinine 0.9 Estimated Creat Clear 30.08 Estimated GFR 63 Glucose 102 Calcium 8.1 L Magnesium 2.4 2.2 C-Reactive Protein 17.9 H 14.6 H Procalcitonin 3.75 H
[2022-08-10] MEDS: POTASSIUM BICARB 25 MEQ EFFERVESCENT TAB PO ×2 (16:17→17:34)
[2022-08-10] MEDS: WARFARIN 2.5 MG TABLET PO (17:24)
--- NOTE | 2022-08-10 18:32 | PC.NURSE ---
Pt pleasant and cooperative throughout shift. Pivoting with 2 assist, walker, and gait belt tolerating ok, moves slowly. BM x 1 today, partially incontinent in bed, remainder in BSC. Lazaro catheter in place, draining well but causing pt some discomfort today. Pt stated it feels like it's in the wrong place. RN adjusted lazaro, pain improved. BLE dressings falling off, RN rewrapped and redressed. Redness on LLE appears to be spreading further onto thigh. MD made adjustments to medications, see MAR. Pain well-controlled ranging today between 0-4/10.
[2022-08-10] MEDS: OxyCODONE/APAP 5-325 TABLET 1 TAB PO (20:43)
[2022-08-10] MEDS: 0.9 % SODIUM CHLORIDE 250 ml IV (23:27)
[2022-08-11 00:15] VITALS: PULSE 70
[2022-08-11 03:00] VITALS: BP 146/72; PULSE 74; RESP 18; TEMP 37; O2SAT 91
[2022-08-11] MEDS: PIPERACILLIN/TAZOBACTAM 3.375 GM in 0.9 % SODIUM CHLORIDE Mini-bag 100 ML IVPB ×3 (05:42→17:34)
--- NOTE | 2022-08-11 06:34 | PC.NURSE ---
Shift note: Pt's right leg is still reddened and swelling. Complained of pain to the ankle. Pt had some behaviors tonight, has been using the call light frequently. At times without knowing why she called. Had adequate sleep. Vitally stable.
[2022-08-11 06:41] LABS: Hematocrit 38.7 % (33.0-51.0); Hemoglobin* 12.3 gm/dL (12.0-16.0); Mean Corpuscular HGB Conc 32 gm/dL (32-36); Mean Corpuscular Hemoglobin 31 pg (26-34); Mean Corpuscular Volume 97 fL (80-100); Platelet Count* 235 K/uL (140-440); Red Blood Count 3.99 m/uL (4.00-5.20); White Blood Count* 16.59 K/uL (4.50-11.00)
[2022-08-11 06:48] LABS: Slide Review Reflex No
[2022-08-11 06:54] LABS: Chloride* 102 mmol/L (96-114)
[2022-08-11 06:55] LABS: Potassium* 3.6 mmol/L (3.6-5.1); Sodium* 136 mmol/L (135-149)
[2022-08-11 06:57] LABS: Creatine Kinase* 33 U/L (41-117); Creatinine* 0.8 mg/dL (0.5-1.5); Est. Creatinine Clearance* 30.08; Estimated Glomerular Filt Rate 73 ml/min
[2022-08-11 06:58] LABS: Blood Urea Nitrogen* 17 mg/dL (7-30); Calcium* 8.7 mg/dL (8.4-10.6); Carbon Dioxide* 28 mmol/L (20-32); Glucose* 95 mg/dL (60-115); Magnesium* 2.4 mg/dL (1.5-2.6)
[2022-08-11 06:59] LABS: INR 3.56 (0.91-1.10); Prothrombin Time 37.2 Seconds
[2022-08-11 07:15] LABS: Procalcitonin* 1.84 ng/mL (<0.50)
[2022-08-11 07:40] VITALS: BP 182/87; PULSE 79; PULSE 85; RESP 18; TEMP 36.8; O2SAT 90
[2022-08-11 07:45] LABS: C Reactive Protein* 18.2 mg/dL (0.5-1.0)
[2022-08-11] MEDS: BENZONATATE 100 MG CAPSULE PO ×2 (08:16→14:27)
[2022-08-11] MEDS: SODIUM CHLORIDE 0.9 % (FLUSH) 10 ML SYRINGE 5 ML IVF ×2 (08:16→11:35)
[2022-08-11] MEDS: atenoloL 50 MG TABLET PO (08:17)
[2022-08-11] MEDS: AMLODIPINE 5 MG TABLET PO (08:17)
[2022-08-11] MEDS: CARBIDOPA-LEVODOPA 25-100 TABLET 1 TAB PO ×2 (08:17→14:27)
[2022-08-11] MEDS: guaiFENesin 600 MG TAB.ER.12H PO (08:17)
[2022-08-11] MEDS: ACETAMINOPHEN 325 MG TABLET PO ×2 (08:17→16:22)
[2022-08-11] MEDS: GABAPENTIN 100 MG CAPSULE PO ×2 (08:18→14:27)
[2022-08-11] MEDS: FLUOXETINE HCL 10 MG CAPSULE PO (08:18)
[2022-08-11] MEDS: FUROSEMIDE 10 MG/ML inj 60 MG IVP (10:53)
[2022-08-11 11:00] VITALS: BP 148/84; PULSE 69; RESP 22; TEMP 37; O2SAT 90
--- NOTE | 2022-08-11 14:00 | CRLHL7_ITS ---
For Patients: As a result of the Century Cures Act, medical imaging exams and procedure reports are released immediately into your electronic medical record. You may view this report before your referring provider. If you have questions, please contact your health care provider. INDICATION: Leg pain and swelling. TECHNIQUE: Ultrasound venous duplex lower left extremity. Compression venous exam was performed using man-scale, color Doppler, and spectral Doppler analysis. COMPARISON: None. FINDINGS: Deep veins: Unable to evaluate distal left femoral vein and posterior tibial veins secondary to pain and overlying bandages. Otherwise, sonographic imaging demonstrates the left common femoral, deep femoral, visible superficial femoral, popliteal, and the contralateral right common femoral veins to be fully compressible with normal color Doppler blood flow. Superficial veins: Greater saphenous vein is fully compressible. No popliteal cyst. IMPRESSION: No DVT in the visualized left lower extremity deep veins. Dictated by Trevon Woodruff MD @ 08/11/2022 3:25:10 PM (Electronically Signed)
--- NOTE | 2022-08-11 14:09 | PM.DST ---
Transfer Discharge Sum: Prov Provider Time Seen by Provider: 07:45 Date Seen: 08/11/22 Date of admission: 08/07/22 16:16 Primary care physician: Sofia Guerrero MD Consults: 08/07/22 16:16 Consult to Occupational Therapy [CONS] Routine Comment: Reason(s) for OT Consult:: Evaluate and Treat Any Restrictions?:: No Restrictions Consult to Physical Therapy [CONS] Routine Comment: Reason(s) for PT Consult:: Evaluate and Treat Any Restrictions?:: No Restrictions Consult to Embedded Software Test Engineer [CONS] Routine Comment: Reason for Consult:: Social Service Consult 08/07/22 18:03 Consult to Wound Care [CONS] Routine Comment: Consulting Provider: Kristel Bautista Attending physician on discharge: Opal Mcrae Anticipated date of transfer: 08/11/22 Receiving physician/facility: Dr. Lisa Santamaria DS: Diagnosis Discharge Diagnosis (1) Sepsis: Status: Acute Problem details: infection plus 2 SIRS criteria: elevated lactate and RR>20 -discussed fluid resuscitation, order 500 mL bolus to the ED (not started until she arrived on the floor) and I'm cautious the setting of chronic heart failure and elevated BNP - but needs volume. will have maintenance fluids ordered and follow lactate and UOP. -blood cultures drawn. Antibiotics infusing in the ED. Starting Zosyn and Azithromycin at admission to floor due to concern for respiratory source. -presumed source is cellulitis but when I compare pics from wound care - I'm not convinced. She is coughing a dry hack. I wonder if she is dry enough that infiltrate is not visualized yet. -procalcitonin is 13, CRP 21 -high risk for bacteremia; thus the switch from ancef to zosyn/azithro (2) Cellulitis of left lower leg: Status: Acute Problem details: -Ancef 1 g given in the ED -wound care to came to floor and changed her wraps 08/08 - LLE erythema much worse yesterday and today. Zosyn started 08/07, vanco added 08/10 - US LE neg for DVT on 08/07. (3) Rhabdomyolysis: Status: Acute Problem details: Elevated CK, AST, ALT on admission, Cr mildly elevated, baseline 0.8, was 1.1 on admission, 0.8 today. - 08/10 CK wnl today. Cr stable. IVF discontinued 08/08 (4) Venous stasis ulcers of both lower extremities: Status: Chronic Problem details: At home: Followed by Navdeep Peña MD. She does wear compression stockings. No rest pain or claudication. She does use lymphedema pumps daily, double layer compression wraps and leg elevation. plan is for sclerotherapy of superficial incompetent veins bilaterally (scheduled in July 2022) (5) Physical debility: Status: Chronic (6) Physical deconditioning: Status: Chronic (7) Unstable gait: Status: Acute Problem details: Continue PT and OT, anticipate short term rehab at discharge (8) Lymphedema: Status: Chronic Problem details: redress unna boots, use HELLEN wraps if unna boots unavailable - stop amlodipine (9) Acute hypokalemia: Status: Acute Problem details: resolved (10) Warfarin anticoagulation: Status: Chronic Problem details: -afib -daily INR, within therapeutic range between 2 and 3 -continue warfarin, SUPRATHERAPEUTIC 08/11/22 at 3.56, adjust for goal (11) Chronic atrial fibrillation: Status: Chronic Problem details: -OAC and good rate control (atenolol) (12) Essential hypertension: Status: Chronic Problem details: atenolol, restart lasix and losartan, stop amlodipine due to edema (13) Morbid obesity: Status: Chronic Problem details: BMI 46.9 (14) Chronic diastolic CHF (congestive heart failure), NYHA class 2: Status: Chronic Problem details: -lasix, potassium, warfarin, atenolol, norvasc = home regimen -BNP 9700 (no previous found in record), potassium mild depressed -rate controlled AFIB -initial trop in ED: 0.4 Echo 08/08/2022 Normal LV size, mildly increased wall thickness, normal global systolic function with estimated EF of 60-65%. Mildly enlarged left atrium. Aortic valve is trileaflet, sclerotic and calcified, mild stenosis (mean gradient of 12 mm Hg) and no regurgitation. Mitral valve is sclerotic, mild mitral regurgitation. Mild to moderate tricuspid regurg did station. Normal estimated pulmonary pressures by tricuspid regurgitation velocity and right atrial pressure (23 mm Hg plus RAP). Compared to the prior study of 09/12/2020 there is no significant change. (15) Parkinson disease: Status: Chronic Problem details: mildly progressive Parkinson's disease- on sinemet last neurology in 05/22 (Pipe Scott MD ) Transfer Discharge Sum: Med Medications Active and Home Medications: Home Medications amlodipine 5 mg tablet 5 mg PO QDAY 12/26/21 [History Confirmed 08/07/22] atenolol 50 mg tablet 50 mg PO DAILY 12/26/21 [History Confirmed 08/07/22] fluoxetine 10 mg capsule 10 mg PO DAILY 12/26/21 [History Confirmed 08/07/22] furosemide 40 mg tablet 40 mg PO QAM 12/26/21 [History Confirmed 08/07/22] losartan 100 mg tablet 100 mg PO DAILY 12/26/21 [History Confirmed 08/07/22] warfarin 5 mg tablet 2.5 - 5 mg PO .UD 12/26/21 [History Confirmed 08/07/22] sijecfyq-llamrna-jicz-lutein tablet 1 tab PO 12/31/21 [History Confirmed 07/01/22] carbidopa 25 mg-levodopa 100 mg tablet 1 tab PO TID 08/07/22 [History Confirmed 08/07/22] oxycodone-acetaminophen 5 mg-325 mg tablet (Percocet) 1 tab PO HS PRN pain 08/07/22 [History Confirmed 08/07/22] gabapentin 100 mg capsule 100 mg PO TID 08/08/22 [History Confirmed 08/08/22] Active Medications Acetaminophen (Acetaminophen 325 Mg Tablet) 650 - 975 mg PO Q6H PRN Last Admin: 08/11/22 08:17 Dose: 975 mg Atenolol (Atenolol 50 Mg Tablet) 50 mg PO DAILY [facility] Last Admin: 08/11/22 08:17 Dose: 50 mg Benzonatate (Benzonatate 100 Mg Capsule) 100 mg PO TID [facility] Last Admin: 08/11/22 08:16 Dose: 100 mg Bisacodyl (Bisacodyl 10 Mg Supp.Rect) 10 mg ME DAILY PRN Carbidopa/Levodopa (Carbidopa-Levodopa 25-100 Tablet) 1 tab PO TID [facility] Last Admin: 08/11/22 08:17 Dose: 1 tab Fluoxetine HCl (Fluoxetine Hcl 10 Mg Capsule) 10 mg PO DAILY [facility] Last Admin: 08/11/22 08:18 Dose: 10 mg Furosemide (Furosemide 40 Mg Tablet) 40 mg PO QAM [place] Gabapentin (Gabapentin 100 Mg Capsule) 100 mg PO TID [facility] Last Admin: 08/11/22 08:18 Dose: 100 mg Guaifenesin (Guaifenesin 600 Mg Tab.Er.12h) 600 mg PO BID [facility] Last Admin: 08/11/22 08:17 Dose: 600 mg Piperacillin Sod/Tazobactam (Sod 3.375 gm/ Sodium Chloride) 100 mls @ 200 mls/hr IVPB Q6H [facility] Last Admin: 08/11/22 11:34 Dose: 200 mls/hr Vancomycin HCl 1,750 mg/ (Sodium Chloride) 517.5 mls @ 258.75 mls/hr IVPB Q24H [facility]; Protocol Last Admin: 08/11/22 12:23 Dose: 258.75 mls/hr Losartan Potassium (Losartan Potassium 50 Mg Tablet) 100 mg PO DAILY [facility] Melatonin (Melatonin 3 Mg Tablet) 3 - 6 mg PO HS PRN Last Admin: 08/10/22 20:44 Dose: 6 mg Multivitamins/Minerals (Multivitamin/Minerals 1 Tablet) 1 tab PO DAILY [facility] Ondansetron HCl (Ondansetron Odt 4 Mg Tab) 4 mg PO Q6H PRN Oxycodone/Acetaminophen (Oxycodone/Apap 5-325 Tablet) 1 tab PO HS PRN PRN Reason: pain Last Admin: 08/10/22 20:43 Dose: 1 tab Polyethylene Glycol (Polyethylene Glycol 3350 17 Gm Pack) 17 gm PO DAILY PRN Senna/Docusate Sodium (Sennosides/Docusate Tablet) 1 tab PO DAILY PRN Sodium Chloride (Sodium Chloride 0.9 % (Flush) 10 Ml Syringe) 5 ml IVF .FLUSH PRN Last Admin: 08/11/22 11:35 Dose: 5 ml Sodium Chloride (Sodium Chloride 0.9 % (Flush) 10 Ml Syringe) 5 ml IVF BID [facility] Last Admin: 08/11/22 08:16 Dose: 5 ml Sodium Chloride (0.9 % Sodium Chloride 250 Ml) 250 ml IV Q24H [facility] Last Admin: 08/10/22 23:27 Dose: 250 ml Warfarin Sodium (Warfarin 5 Mg Tablet) 5 mg PO MoTh [facility] Warfarin Sodium (Warfarin 2.5 Mg Tablet) 2.5 mg PO SuTuWeFrSa [facility] Last Admin: 08/10/22 17:24 Dose: 2.5 mg Transfer Discharge Sum: Hosp Hospital Course Hospital course: Carmel Chang is a 86 year old female who has been seeing wound care clinic for chronic venous stasis ulcers on her lower extremities as well as getting Unna boots for chronic lymphedema who presented through the emergency department for sepsis associated with left lower extremity cellulitis. Ultrasound of left lower extremity on that day was negative for DVT and she was admitted to the hospital and started on Zosyn. She has been elevating her legs these 12 hours out of every 24, and continues to have Unna boots however has had fluctuating induration over the left lower extremity. White blood count has been increasing during this hospital stay and although her CRP and procalcitonin initially declined, they are rising again. For this reason vancomycin was added yesterday, but her condition has not improved and she is transferred to [place] for further care and infectious disease consultation. Vital signs have been stable. She is requiring 2 L oxygen via nasal cannula to keep her sats at 90%. Please see diagnoses above for further details. I spoke with her nephew, Michi, over the phone today to give him an update as well. Time Spent with Patient Time attestation: Total time spent providing and/or coordinating transfer services: 50 minutes. Exam Narrative: Exam Narrative: General: Appears ill. Awake, alert, oriented. Cardiovascular: Irregularly irregular. No murmurs, gallops, or rubs. Respiratory: Clear to auscultation bilaterally. No wheezes or crackles. Abdomen: Bowel sounds present. Soft, nondistended, nontender. Extremities: Chronic lymphedema. Bright red erythema enlarged tender patches over her left leg that was not present yesterday. It is present in many areas, similar to yesterday, but worse induration overall. It is the worst in her upper thigh just behind her knee. Does not extend into her buttocks or genitalia. Chronic venous stasis changes also noted. Const: Vital Signs, click to edit/add: Vital Signs - 24 hr 08/10/22 15:00 08/10/22 15:00 08/10/22 15:17 Temperature 98.8 F Pulse Rate 71 Pulse Rate [Left R adial] 74 74 Respiratory Rate 18 18 Blood Pressure [Le ft Arm] 174/78 H Pulse Oximetry 91 Oxygen Delivery Me thod Room Air Oxygen Flow Rate 08/10/22 19:00 08/10/22 23:00 08/10/22 23:00 Temperature 98.6 F 98.6 F Pulse Rate Pulse Rate [Left R adial] 81 62 62 Respiratory Rate 18 18 18 Blood Pressure [Le ft Arm] 164/67 H 110/74 Pulse Oximetry 88 92 Oxygen Delivery Me thod Room Air Room Air Oxygen Flow Rate 08/11/22 00:15 08/11/22 03:00 08/11/22 07:40 Temperature 98.6 F 98.3 F Pulse Rate 70 Pulse Rate [Left R adial] 74 85 Respiratory Rate 18 18 Blood Pressure [Le ft Arm] 146/72 H 182/87 H Pulse Oximetry 91 90 Oxygen Delivery Me thod Room Air Room Air Oxygen Flow Rate 08/11/22 07:40 08/11/22 11:00 Temperature 98.6 F Pulse Rate 79 Pulse Rate [Left R adial] 69 Respiratory Rate 22 Blood Pressure [Le ft Arm] 148/84 H Pulse Oximetry 90 Oxygen Delivery Me thod Nasal Cannula Oxygen Flow Rate 2 Discharge Plan Discharge Disposition: [facility] Discharge Location: [facility] Date of Admission: 08/07/22 16:16 Attending Physician on Admission: Alicia Wong Attending Provider on Discharge: Opal Mcrae Consulting Providers: Kristel Bautista Primary Care Provider: Sofia Guerrero Discharge Medications: No Action amlodipine 5 mg tablet 5 mg PO QDAY losartan 100 mg tablet 100 mg PO DAILY atenolol 50 mg tablet 50 mg PO DAILY fluoxetine 10 mg capsule 10 mg PO DAILY furosemide 40 mg tablet 40 mg PO QAM warfarin 5 mg tablet 2.5 - 5 mg PO .UD Rx Instructions: TAKE 5MG (1TABLET) EVERY THU AND , TAKE 2.5MG (1/2 TABLET) ALL OTHER DAYS LAST INR 2.6 ON 08/01/2022 cshispwg-nqwikcg-sjpt-lutein Tablet 1 tab PO carbidopa-levodopa 25-100 mg tablet 1 tab PO TID oxycodone-acetaminophen [Percocet] 5-325 mg tablet 1 tab PO HS PRN (Reason: pain) gabapentin 100 mg capsule 100 mg PO TID Follow Up Appointments: Sofia Guerrero MD [Primary Care Provider] - Hospital Course: Following initial evaluation my suspicion was for cellulitis of the left lower extremity at a minimum, I did order a Doppler to rule out DVT and this was read as negative, noted to be somewhat difficult secondary to body habitus. Blood cultures were drawn. I elected to hold off on giving her IV fluids until her workup was complete as she is on diuretic, does have some lower extremity edema and was coughing, wanted to make sure that she did not have evidence of pulmonary edema. D-dimer was elevated at 1.6 so I added on a CT scan of the chest. Labs are notable for normal white blood cell count of 9.6, normal platelets and hemoglobin, left shift with 90% neutrophils. INR elevated at 1.4 to, subtherapeutic given her history of AFib. Venous gas was unremarkable. Electrolytes notable for mildly low potassium of 3.3, BUN and creatinine are unremarkable. Her lactate was elevated at 3.7, but BNP was elevated at over 9000, and given the absence of any signs of shock, fever, elevated white blood cell count, I have elected to hold off on IV fluids for the time being. I did give her Ancef 2 g IV. Urinalysis via straight cath is notably negative with 0-2 red cells and 0-2 white cells. Final read on the CT scan of the chest is pending at this time but I do not see evidence of PE. COVID is negative. She continues to have a dry cough. Plan at this time is admission for IV antibiotics, management of fluid status. Oxygen: Yes Oxygen Delivery Method: Nasal Cannula Oxygen Flow Rate: 2 LPM Urinary Catheter: Yes Services not available here: Infectious Disease
[2022-08-11 15:00] VITALS: BP 132/59; PULSE 60; PULSE 61; RESP 20; TEMP 36.7; O2SAT 93
--- NOTE | 2022-08-11 15:11 | PC.SOCIAL ---
Per MD, pt is not ready for discharge. Phone call to Laly Thomason at [facility]. Laly informs that [facility] will hold a bed for pt, when pt is medically cleared for discharge. Faxed updated MD progress note and therapy notes to [facility] at [phone]. Social work will follow up as necessary.
[2022-08-11] MEDS: WARFARIN 5 MG TABLET PO (17:34)
--- NOTE | 2022-08-11 18:10 | PC.NURSE ---
Pt cooperative during shift. Pt alert and oriented. Pt weepy at times during shift due to feeling alone without her who has passed. Pt is an EZ stand transfer. Pt used bedside commode. Pt had pain ranging from 4-7 during shift. See EMAR for intervention. Pt?s leg wraps were undressed and redressed per orders. Redness on legs have spread new lines drawn; hospitalist notified and look at areas of redness. Pt to discharge to [facility] at 1830 via non [facility] transport
== END 2022-08-11 19:25 | disposition short-term general hospital (02) | DRG 872 ==
LOC: ED 11:29 → MEDSURG 15:22
PROVIDERS: Internal Medicine; Admitting Provider Family Medicine; Emergency Provider Emergency Medicine; PCP Family Medicine; Visit Provider Family Medicine
DX: A41.9 Sepsis, unspecified organism (principal); L03.116 Cellulitis of left lower limb; I48.20 Chronic atrial fibrillation, unspecified; Z68.42 Body mass index [BMI] 45.0-49.9, adult; F11.20 Opioid dependence, uncomplicated; L97.212 Non-pressure chronic ulcer of right calf with fat layer exposed; L97.222 Non-pressure chronic ulcer of left calf with fat layer exposed; M62.82 Rhabdomyolysis; I50.32 Chronic diastolic (congestive) heart failure; R05.9 Cough, unspecified; I83.012 Varicose veins of right lower extremity with ulcer of calf; I83.022 Varicose veins of left lower extremity with ulcer of calf; I89.0 Lymphedema, not elsewhere classified; G20 Parkinson's disease; I11.0 Hypertensive heart disease with heart failure; Z79.01 Long term (current) use of anticoagulants; E87.6 Hypokalemia; R26.89 Other abnormalities of gait and mobility; E66.01 Morbid (severe) obesity due to excess calories; G89.29 Other chronic pain; F32.A Depression, unspecified
CPT/HCPCS: 36415; 51701; 51798; 71045; 71260; 80048; 80076; 81001; 82550; 82803; 83605; 83735; 83880; 84145; 84450; 84460; 84484; 85025; 85027; 85379; 85610; 86140; 87040; 87086; 87631; 87635; 93005; 93306; 93971; 97110; 97116; 97162; 97165; 97530; 97535; 99284; 99285; G0378; A9270; C9113; J0690; J1940; J2543; J3370; J7030; J7050; J7120; Q9967

== ENCOUNTER 2022-08-11 19:20 | Outpatient (CLI) | payer MEDICARE, BC, SELFPAY | END 2022-08-11 19:21 | disposition home or self-care (01) | LOC: AMB 08-13 09:52 | PROVIDERS: PCP Family Medicine; Visit Provider Emergency Medicine Emergency Medical Services | DX: R53.1 Weakness (principal); L03.116 Cellulitis of left lower limb; L03.115 Cellulitis of right lower limb | CPT/HCPCS: A0425; A0428 ==

== ENCOUNTER 2022-09-16 11:41 | Outpatient (REF) | payer MEDICARE, BC, SELFPAY ==
[2022-09-16 13:25] LABS: Chloride* 98 mmol/L (96-114)
[2022-09-16 13:26] LABS: Potassium* 3.4 mmol/L (3.6-5.1); Sodium* 140 mmol/L (135-149)
[2022-09-16 13:28] LABS: Carbon Dioxide* 34 mmol/L (20-32); Estimated Glomerular Filt Rate 55 ml/min
[2022-09-16 13:29] LABS: Blood Urea Nitrogen* 21 mg/dL (7-30); Calcium* 8.9 mg/dL (8.4-10.6); Glucose* 120 mg/dL (60-115)
== END 2022-09-16 11:42 | disposition home or self-care (01) ==
LOC: NPINS 11:41
PROVIDERS: PCP Family Medicine; Visit Provider Family Medicine
DX: I50.32 Chronic diastolic (congestive) heart failure (principal)
CPT/HCPCS: 80048

== ENCOUNTER 2022-10-14 08:11 | Outpatient (REF) | payer MEDICARE, BC, SELFPAY ==
[2022-10-14 09:08] LABS: Chloride* 100 mmol/L (96-114); Potassium* 4.4 mmol/L (3.6-5.1); Sodium* 140 mmol/L (135-149)
[2022-10-14 09:11] LABS: Blood Urea Nitrogen* 34 mg/dL (7-30); Carbon Dioxide* 32 mmol/L (20-32); Estimated Glomerular Filt Rate 55 ml/min; Glucose* 81 mg/dL (60-115)
[2022-10-14 09:12] LABS: Calcium* 8.6 mg/dL (8.4-10.6)
== END 2022-10-14 08:12 | disposition home or self-care (01) ==
LOC: NPINS 08:11
PROVIDERS: PCP Family Medicine; Visit Provider Nurse Practitioner Gerontology
DX: I50.32 Chronic diastolic (congestive) heart failure (principal)
CPT/HCPCS: 80048

== ENCOUNTER 2022-11-07 13:52 | Outpatient (CLI) | payer MEDICARE, BC, SELFPAY | END 2022-11-07 13:53 | disposition home or self-care (01) | LOC: AMB 11-11 14:53 | PROVIDERS: PCP Family Medicine; Visit Provider Family Medicine | DX: R06.09 Other forms of dyspnea (principal) | CPT/HCPCS: A0425; A0427 ==

== ENCOUNTER 2022-11-07 14:20 | Inpatient (IN) | payer MEDICARE, BC, SELFPAY ==
[2022-11-07] VITALS (14 sets, daily range): BP systolic 115–182; BP diastolic 74–103; PULSE 79–103; RESP 22–24; TEMP 37.1–37.2; O2SAT 85–98; BMI 45.9; BMI 47.8
--- NOTE | 2022-11-07 14:37 | ED_ITS ---
HPI - General Adult General Chief complaint: Fall/Minor Trauma Stated complaint: Rib pain Time Seen by Provider: 11/07/22 14:27 History of Present Illness HPI narrative: Patient from assisted living in [facility]. Notes she fell on Thursday and Thursday. Feels pain in left ribs. On warfarin for afib. Denies hitting head/ LOC. Per assisted living staff, had UA run today that was positive, no treatment started yet 87-year-old woman presenting to the emergency department with what I believe is her primary complaint of left sided pain anterior chest underneath her breast. She apparently fell yesterday she says and thinks she hurt her ribs. Is not complaining of difficulty breathing otherwise. Generally deconditioned and a fall risk. History of Parkinson's. She also fell Thursday, 2 days ago, she says falling backwards onto her ?butt?. She does have a p.r.n. oxycodone she says for just general pains. She did receive a believe a Percocet which she said helped generally and her butt is feeling better. Apparently did not hit her head nor was or loss of consciousness. She says she just lost balance. Anticoagulated with Coumadin. Denies abdominal pain. No shoulder area pain. Assisted living where she resides is reporting a positive urinalysis today. On exam noted to be wearing attends. Mouth is quite dry noted during interview. She thinks this might be related to medications. Related Data Home Medications Medication Instructions Recorded Confirmed warfarin 5 mg tablet 2 mg PO .UD 12/26/21 11/07/22 carbidopa 25 mg-levodopa 100 mg 1 tab PO TID 08/07/22 11/08/22 tablet gabapentin 100 mg capsule 100 mg PO TID 08/08/22 11/07/22 cetirizine 10 mg tablet (24Hour 10 mg PO DAILY 11/07/22 11/07/22 Allergy) nystatin 100,000 unit/gram topical 1 applic topical BID PRN 11/07/22 11/07/22 powder fluoxetine 20 mg capsule 20 mg PO DAILY 11/08/22 11/08/22 Previous Rx's Medication Instructions Recorded acetaminophen 325 mg tablet 975 mg (3 x 325 mg) PO TID #60 tabs 11/11/22 cephalexin 500 mg capsule 500 mg PO BID 5 days #10 caps 11/11/22 furosemide 40 mg tablet 80 mg (2 x 40 mg) PO QAM #60 tabs 11/11/22 losartan 50 mg tablet 50 mg PO DAILY #30 tabs 11/11/22 metoprolol tartrate 25 mg tablet 25 mg PO BID #60 tabs 11/11/22 oxycodone 5 mg tablet 2.5 - 5 mg (0.5 - 1 x 5 mg) PO Q4H 11/11/22 PRN #20 tabs potassium chloride 10 mEq 20 meq (2 x 10 mEq) PO DAILYWM #60 11/11/22 capsule,extended release caps sennosides 8.6 mg-docusate sodium 1 tab PO DAILY PRN #30 tabs 11/11/22 50 mg tablet (Stool Softener-Laxative) Allergies Allergy/AdvReac Type Severity Reaction Status Date / Time hydrochlorothiazide Allergy Verified 11/07/22 14:31 Sulfa (Sulfonamide Allergy Rash Verified 11/07/22 14:31 Antibiotics) Review of Systems Status of ROS: Reports: 6 or more systems reviewed and unremarkable except as noted in History and below [facility] Medical History (Updated 11/14/22 @ 00:02 by Background Daemon) Respiratory failure ?J96.90 - Respiratory failure, unspecified, unspecified whether with hypoxia or hypercapnia (ICD-10) Fracture of rib ?S22.39XA - Fracture of one rib, unspecified side, initial encounter for closed fracture (ICD-10) Physical debility ?R53.81 - Other malaise (ICD-10) Physical deconditioning ?R53.81 - Other malaise (ICD-10) At risk for falls ?Z91.81 - History of falling (ICD-10) Unstable gait ?R26.81 - Unsteadiness on feet (ICD-10) Lymphedema ?I89.0 - Lymphedema, not elsewhere classified (ICD-10) Opioid dependence ?F11.20 - Opioid dependence, uncomplicated (ICD-10) Chronic pain ?G89.29 - Other chronic pain (ICD-10) Warfarin anticoagulation ?Z79.01 - lobsterman (current) use of anticoagulants (ICD-10) Chronic atrial fibrillation ?I48.20 - Chronic atrial fibrillation, unspecified (ICD-10) Depression ?F32.A - Depression, unspecified (ICD-10) Essential hypertension ?I10 - Essential (primary) hypertension (ICD-10) Generalized OA ?M15.9 - Polyosteoarthritis, unspecified (ICD-10) Cellulitis of left lower leg ?L03.116 - Cellulitis of left lower limb (ICD-10) Morbid obesity ?E66.01 - Morbid (severe) obesity due to excess calories (ICD-10) Durable power of insurance defense attorney in chart Health care directive on file ?Z78.9 - Other specified health status (ICD-10) Closed right ankle fracture ?S82.891A - Other fracture of right lower leg, initial encounter for closed fracture (ICD-10) Osteoarthritis of right shoulder ?M19.011 - Primary osteoarthritis, right shoulder (ICD-10) Osteoarthritis of left shoulder ?M19.012 - Primary osteoarthritis, left shoulder (ICD-10) Right rotator cuff tear arthropathy ?M75.101 - Unspecified rotator cuff tear or rupture of right shoulder, not specified as traumatic (ICD-10) ?M12.811 - Other specific arthropathies, not elsewhere classified, right shoulder (ICD-10) Osteoarthritis of left knee ?M17.12 - Unilateral primary osteoarthritis, left knee (ICD-10) Chronic diastolic CHF (congestive heart failure), NYHA class 2 ?I50.32 - Chronic diastolic (congestive) heart failure (ICD-10) Parkinson disease ?G20 - Parkinson's disease (ICD-10) Venous stasis ulcers of both lower extremities ?I83.019 - Varicose veins of right lower extremity with ulcer of unspecified site (ICD-10) ?I83.029 - Varicose veins of left lower extremity with ulcer of unspecified site (ICD-10) ?L97.919 - Non-pressure chronic ulcer of unspecified part of right lower leg with unspecified severity (ICD-10) ?L97.929 - Non-pressure chronic ulcer of unspecified part of left lower leg with unspecified severity (ICD-10) Hypertension ?I10 - Essential (primary) hypertension (ICD-10) Urinary tract infection ?N39.0 - Urinary tract infection, site not specified (ICD-10) Ulcer of lower extremity ?L97.909 - Non-pressure chronic ulcer of unspecified part of unspecified lower leg with unspecified severity (ICD-10) Chest pain ?R07.9 - Chest pain, unspecified (ICD-10) Cellulitis of leg ?L03.119 - Cellulitis of unspecified part of limb (ICD-10) Atrial fibrillation ?I48.91 - Unspecified atrial fibrillation (ICD-10) Surgical History H/O excision of mass (09/21/00) ?Z98.890 - Other specified postprocedural states (ICD-10) 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 Lives at [place], [place]. No children. Nephew, Michi Chang, is her POA. Requests DNR/DNI resuscitation status. What is your current living situation?: I presently have a place to live Problems where you live: no known problems Problems where you live details: n/a In the past 12 months, utilities in danger of being shut off: no In past 12 months, lack of transportation kept you from medical appts, meetings, work, or getting things needed for daily living: no In the past 12 mos, have been you worried that your food would run out before you had money to buy more?: never true In the past 12 mos, the food you bought just didn't last and you didn't have money to buy more?: never true Highest level of school completed/degree received: Associate degree: academic program Smoking Status: Former smoker What tobacco products do you use: cigarettes Smoking quit date/years: >15 years ago Do you use any of these nicotine containing products: None Second hand tobacco smoke exposure: No How often do you have a drink containing alcohol: never AUDIT-C Alcohol total score: 0 Non-prescribed substance use: denies use Caffeine: Yes How often does anyone, including family, friends and others, physically hurt you : never How often does anyone, including family, friends and others, insult or talk down to you: never How often does anyone, including family, friends and others, threaten you with harm: never How often does anyone, including family, friends and others, scream or curse at you: never service: No Exam Narrative: Exam Narrative: Pleasant. Mouth sounds dry necessitating some moisture to be able to speak better. Intention tremor. Slight ptosis of the left eyelid. She is breathing easily. Hesitant in her recall and speech. Breathing easily. Lungs appear to be clear. Heart in regular rate and rhythm. Distant. Abdomen is overweight soft appears to be nontender. She does not have any erythema or bruising to the chest wall. Is quite tender to palpation over the low left ribs from medial clavicle to mid axillary. Frankly hard to distinguish that from the left upper abdomen as well. Head is atraumatic. No indication of injury to her arms. Lower legs with tense 1+ edema and chronic venous stasis changes moderate erythema with mild calor, not clearly cellulitic, and well-healing ulcer on the left medial ankle malleolus. Was difficult but did also roll to examine back and sacral area. She was sore to palpation in the mid sacrum but did not appear to have pain to do this transition; difficulty seem to be related to weakness/deconditioning. Const: Vital Signs, click to edit/add: Vital Signs - 24 hr 11/07/22 14:23 Temperature 98.9 F Pulse Rate [Pulse Oximeter] 103 H Respiratory Rate 24 Blood Pressure [Le ft Forearm] 115/74 Pulse Oximetry 86 L Oxygen Delivery Me thod Room Air Documenting provider has reviewed patient's vital signs: yes Course Vital Signs Vital signs: Initial Vital Signs Temperature 98.9 F 11/07/22 14:23 Temperature Source Temporal Artery Scan 11/07/22 14:23 Pulse Rate 103 H 11/07/22 14:23 Respiratory Rate 24 11/07/22 14:23 Blood Pressure 115/74 11/07/22 14:23 Blood Pressure Mean 87 11/07/22 14:23 Blood Pressure Position Semi-Fowlers 11/07/22 14:23 Pulse Oximetry 86 L 11/07/22 14:23 Oxygen Delivery Method Room Air 11/07/22 14:23 Vital Signs Temperature 98.9 F 11/07/22 14:23 Pulse Rate 103 H 11/07/22 14:23 Respiratory Rate 24 11/07/22 14:23 Blood Pressure 115/74 11/07/22 14:23 Pulse Oximetry 86 L 11/07/22 14:23 Oxygen Delivery Method Room Air 11/07/22 14:23 Temperature 98.5 F 11/11/22 11:00 Pulse Rate 61 11/11/22 11:00 Respiratory Rate 24 11/11/22 11:00 Blood Pressure 128/61 11/11/22 11:00 Pulse Oximetry 90 11/11/22 11:00 Oxygen Delivery Method Room Air 11/11/22 11:00 Oxygen Flow Rate 0.5 11/11/22 03:00 Medical Decision Making MDM Narrative Medical decision making narrative: In the setting of anticoagulation would have concern about potential splenic bleed. I am not convinced that there is a sacral or coccygeal fracture. Did not have pain in the low lumbar spine to palpation. Will be difficult to image and in addition with anticoagulation status would be good to scan at least limited of the upper abdomen including the left side lower ribs. Later inquiry is made into whether not she could receive sacral scan. I think it is fine to continue through the pelvis. Yield seems low though Checking hemoglobin and INR as well as creatinine. Urinalysis looking for evidence of infection as above might have further contributed to some weakness and evidence of blood otherwise. Urinalysis is positive. I did review CT images. Radiology over-read as below INDICATION: Spleen/lower anterior rib pain after fall. TECHNIQUE: CT abdomen and pelvis acquired with 116 cc Isovue 370 IV contrast. COMPARISON: None. FINDINGS: Lower chest: Scattered atelectasis barium Liver: Unremarkable. Normal in size and attenuation. No suspicious masses. Gallbladder and bile ducts: Moderate intra and extrahepatic ductal dilation. Unremarkable gallbladder Pancreas: Unremarkable. No mass or inflammation. Spleen: Unremarkable. Normal in size. No masses. Adrenal glands: Unremarkable. No nodules. Kidneys: Left inferior pole renal cyst. Additional hypodensities in both kidneys, too small to characterize. No suspicious masses, stones, or hydronephrosis. GI tract: Severe colonic diverticulosis. Normal in caliber. No sign of mass or inflammation. Normal appendix. Vasculature: Severe aortoiliac arterial calcifications. Abdominal aorta is normal in caliber. Mesenteric arteries are patent. Lymph nodes: Multiple mildly retroperitoneal lymph nodes. Peritoneum/Abdominal Wall: Unremarkable. No sign of mass or infiltration. No free air or significant free fluid. Pelvis: Incidental 3.9 centimeters left ovarian cystic lesion. Indeterminate 7 millimeter hyperdensity along the posterior bladder adjacent to the UVJ. Bones: Acute nondisplaced left anterior 7th rib fracture. Degenerative changes. IMPRESSION: Acute nondisplaced left anterior 7th rib fracture. No splenic injury as questioned. Moderate intra/extrahepatic ductal dilation to the level of the ampulla. Obstructing mass is not excluded. Recommend correlation with LFTs including bilirubin. Consider further evaluation with nonemergent MRCP/ERCP if available. Indeterminate 7 millimeter hyperdensity along the posterior bladder adjacent to the UVJ, possibly stone or mass. Recommend correlation for hematuria. No hydronephrosis to suggest obstruction. Incidental 3.9 centimeter left ovarian cystic lesion for which annual surveillance is recommended. Multiple mildly enlarged retroperitoneal lymph nodes of uncertain clinical significance. Colonic diverticulosis. Initiating Rocephin IV. Adding on full CBC and basic and liver panel. She did not have pain in the area of the liver. Rather elevated proBNP on lab review. Became more hypoxic requiring some oxygen supplementation in the emergency department. I do not how much of this is related to heart failure versus painful inspiratory effort Needs to be hospitalized for further cares. Have discussed with hospitalist. Lab Data Lab results reviewed: Yes I reviewed the patient's lab results Labs: Lab Results 11/07/22 11/07/22 11/07/22 Range/Units 14:54 16:10 17:31 WBC 10.03 (4.50-11.00) K/uL RBC 3.78 L (4.00-5.20) m/uL Hgb 11.4 L (12.0-16.0) gm/dL Hct 36.1 (33.0-51.0) % MCV 96 (80-100) fL MCH 30 (26-34) pg MCHC 32 (32-36) gm/dL RDW Coeff of Mandeep 13.5 (11.5-15.5) % Plt Count 256 (140-440) K/uL Neut % (Auto) 83.0 H (42.0-72.0) % Lymph % (Auto) 2.1 L (20-44) % [place] % (Auto) 14.0 H (0.0-11.0) % Eos % (Auto) 0.3 (0.0-7.0) % Baso % (Auto) 0.3 (0.0-3.0) % Neut # (Auto) 8.30 H (1.7-7.0) K/uL Lymph # (Auto) 0.20 L (0.90-2.90) K/uL [place] # (Auto) 1.40 H (0.00-0.90) K/UL Eos # (Auto) 0.03 (0.00-0.50) K/uL Baso # (Auto) 0.03 (0.00-0.30) K/uL Abs Immat Gran (auto) 0.03 (0.00-0.30) K/uL Imm/Tot Granulo (auto) 0.3 % INR 1.84 H (0.91-1.10) Sodium 133 L (135-149) mmol/L Potassium 3.6 (3.6-5.1) mmol/L Chloride 99 (96-114) mmol/L Carbon Dioxide 24 (20-32) mmol/L Anion Gap 10 (7-15) mEq/L BUN 24 (7-30) mg/dL Creatinine 1.1 (0.5-1.5) mg/dL Estimated Creat Clear 26.86 Estimated GFR 49 ml/min Glucose 108 (60-115) mg/dL Calcium 8.7 (8.4-10.6) mg/dL Total Bilirubin 0.7 (0.1-1.5) mg/dL Direct Bilirubin 0.2 (0.0-0.5) mg/dL AST 19 (12-35) U/L ALT 11 (4-35) U/L Alkaline Phosphatase 75 (40-150) U/L NT-Pro-B Natriuret Pep 73017 pg/mL Total Protein 7.2 (6.0-8.3) g/dL Albumin 3.6 (3.3-5.0) g/dL Urine Color Yellow (Yellow) Urine Appearance Cloudy A (Clear) Urine pH 6.0 (5.0-8.5) Ur Specific [place] 1.015 (1.000-1.030) Urine Protein 1+ A (Negative) Urine Glucose (UA) Negative (Negative) Urine Ketones Negative (Negative) Urine Blood 1+ A (Negative) Urine Nitrite Negative (Negative) Urine Bilirubin Negative (Negative) Urine Urobilinogen 0.2 (0.2-1.0) Ur Leukocyte Esterase 3+ A (Negative) Urine RBC 0-2 (0-2) Urine WBC 50-100 A (0-5) Ur Squamous Epith Cells None (None-Few) Urine Bacteria Many A (None) SARS-CoV-2 (PCR) (Negative) Influenza Type A (PCR) (Negative) Influenza Type B (PCR) (Negative) RSV (PCR) (Negative) Lab Acknowledgement Test Added POC Creatinine 1.2 (0.6-1.3) mg/dl 11/07/22 11/07/22 Range/Units 19:30 19:34 WBC (4.50-11.00) K/uL RBC (4.00-5.20) m/uL Hgb (12.0-16.0) gm/dL Hct (33.0-51.0) % MCV (80-100) fL MCH (26-34) pg MCHC (32-36) gm/dL RDW Coeff of Mandeep (11.5-15.5) % Plt Count (140-440) K/uL Neut % (Auto) (42.0-72.0) % Lymph % (Auto) (20-44) % [place] % (Auto) (0.0-11.0) % Eos % (Auto) (0.0-7.0) % Baso % (Auto) (0.0-3.0) % Neut # (Auto) (1.7-7.0) K/uL Lymph # (Auto) (0.90-2.90) K/uL [place] # (Auto) (0.00-0.90) K/UL Eos # (Auto) (0.00-0.50) K/uL Baso # (Auto) (0.00-0.30) K/uL Abs Immat Gran (auto) (0.00-0.30) K/uL Imm/Tot Granulo (auto) % INR (0.91-1.10) Sodium (135-149) mmol/L Potassium (3.6-5.1) mmol/L Chloride (96-114) mmol/L Carbon Dioxide (20-32) mmol/L Anion Gap (7-15) mEq/L BUN (7-30) mg/dL Creatinine (0.5-1.5) mg/dL Estimated Creat Clear Estimated GFR ml/min Glucose (60-115) mg/dL Calcium (8.4-10.6) mg/dL Total Bilirubin (0.1-1.5) mg/dL Direct Bilirubin (0.0-0.5) mg/dL AST (12-35) U/L ALT (4-35) U/L Alkaline Phosphatase (40-150) U/L NT-Pro-B Natriuret Pep pg/mL Total Protein (6.0-8.3) g/dL Albumin (3.3-5.0) g/dL Urine Color (Yellow) Urine Appearance (Clear) Urine pH (5.0-8.5) Ur Specific [place] (1.000-1.030) Urine Protein (Negative) Urine Glucose (UA) (Negative) Urine Ketones (Negative) Urine Blood (Negative) Urine Nitrite (Negative) Urine Bilirubin (Negative) Urine Urobilinogen (0.2-1.0) Ur Leukocyte Esterase (Negative) Urine RBC (0-2) Urine WBC (0-5) Ur Squamous Epith Cells (None-Few) Urine Bacteria (None) SARS-CoV-2 (PCR) Negative SARS-CoV-2 (Negative) Influenza Type A (PCR) Negative PCR FLU A (Negative) Influenza Type B (PCR) Negative PCR FLU B (Negative) RSV (PCR) Negative PCR RSV (Negative) Lab Acknowledgement Test Added POC Creatinine (0.6-1.3) mg/dl Discharge Plan Discharge Clinical Impression: UTI (urinary tract infection), Fracture of rib, Respiratory failure Patient Disposition: Admitted As Observation Discharge Location: [facility] Condition: Stable Activity Level: Activity as Tolerated Discharge Diet: Regular
--- NOTE | 2022-11-07 14:45 | CRLHL7_ITS ---
For Patients: As a result of the Century Cures Act, medical imaging exams and procedure reports are released immediately into your electronic medical record. You may view this report before your referring provider. If you have questions, please contact your health care provider. INDICATION: Spleen/lower anterior rib pain after fall. TECHNIQUE: CT abdomen and pelvis acquired with 116 cc Isovue 370 IV contrast. COMPARISON: None. FINDINGS: Lower chest: Scattered atelectasis barium Liver: Unremarkable. Normal in size and attenuation. No suspicious masses. Gallbladder and bile ducts: Moderate intra and extrahepatic ductal dilation. Unremarkable gallbladder Pancreas: Unremarkable. No mass or inflammation. Spleen: Unremarkable. Normal in size. No masses. Adrenal glands: Unremarkable. No nodules. Kidneys: Left inferior pole renal cyst. Additional hypodensities in both kidneys, too small to characterize. No suspicious masses, stones, or hydronephrosis. GI tract: Severe colonic diverticulosis. Normal in caliber. No sign of mass or inflammation. Normal appendix. Vasculature: Severe aortoiliac arterial calcifications. Abdominal aorta is normal in caliber. Mesenteric arteries are patent. Lymph nodes: Multiple mildly retroperitoneal lymph nodes. Peritoneum/Abdominal Wall: Unremarkable. No sign of mass or infiltration. No free air or significant free fluid. Pelvis: Incidental 3.9 centimeters left ovarian cystic lesion. Indeterminate 7 millimeter hyperdensity along the posterior bladder adjacent to the UVJ. Bones: Acute nondisplaced left anterior 7th rib fracture. Degenerative changes. IMPRESSION: Acute nondisplaced left anterior 7th rib fracture. No splenic injury as questioned. Moderate intra/extrahepatic ductal dilation to the level of the ampulla. Obstructing mass is not excluded. Recommend correlation with LFTs including bilirubin. Consider further evaluation with nonemergent MRCP/ERCP if available. Indeterminate 7 millimeter hyperdensity along the posterior bladder adjacent to the UVJ, possibly stone or mass. Recommend correlation for hematuria. No hydronephrosis to suggest obstruction. Incidental 3.9 centimeter left ovarian cystic lesion for which annual surveillance is recommended. Multiple mildly enlarged retroperitoneal lymph nodes of uncertain clinical significance. Colonic diverticulosis. Please note that all CT scans at this facility use dose modulation, iterative reconstruction, and/or weight-based dosing when appropriate to reduce radiation dose to as low as reasonably achievable. Dictated by Trevon Woodruff MD @ 11/07/2022 4:53:35 PM (Electronically Signed)
[2022-11-07] MEDS: 0.9 % SODIUM CHLORIDE 1000 ml 1,000 ML 500 ML IV (14:56)
[2022-11-07 15:00] LABS: Hemoglobin* 11.4 gm/dL (12.0-16.0)
[2022-11-07 15:01] LABS: Creatinine, Point-of-Care* 1.2 mg/dl (0.6-1.3)
[2022-11-07 15:17] LABS: INR 1.84 (0.91-1.10); Prothrombin Time 22.2 Seconds
[2022-11-07 16:17] LABS: Appearance Urine Cloudy (Clear); Bilirubin Urine Negative (Negative); Blood Urine 1+ (Negative); Color Urine Yellow (Yellow); Glucose Urine Negative (Negative); Ketones Urine Negative (Negative); Leukocyte Esterase Urine 3+ (Negative); Nitrite Urine Negative (Negative); Protein Urine 1+ (Negative); Specific Gravity Urine 1.015 (1.000-1.030); Urobilinogen Urine 0.2 (0.2-1.0)
--- NOTE | 2022-11-07 16:23 | ED.NURSE ---
Pt declining dinner at this time but having a diet coke on ice at this time.
[2022-11-07 16:28] LABS: Bacteria Urine Many; RBC Urine 0-2 (0-2); WBC Urine 50-100 (0-5)
[2022-11-07] MEDS: cefTRIAXone 1 GM in 0.9 % SODIUM CHLORIDE Mini-bag 100 ML IVPB (17:45)
[2022-11-07 18:42] LABS: Basophils Absolute Auto 0.03 K/uL (0.00-0.30); Basophils Percent Auto 0.3 % (0.0-3.0); Eosinophils Absolute Auto 0.03 K/uL (0.00-0.50); Eosinophils Percent Auto 0.3 % (0.0-7.0); Hematocrit 36.1 % (33.0-51.0); Immature Granulocytes Abs Auto 0.03 K/uL (0.00-0.30); Immature Granulocytes Pct Auto 0.3 %; Lymphocytes Percent Auto 2.1 % (20-44); Mean Corpuscular HGB Conc 32 gm/dL (32-36); Mean Corpuscular Hemoglobin 30 pg (26-34); Mean Corpuscular Volume 96 fL (80-100); Platelet Count* 256 K/uL (140-440); RDW Coefficient of Variation % 13.5 % (11.5-15.5); Red Blood Count 3.78 m/uL (4.00-5.20); White Blood Count* 10.03 K/uL (4.50-11.00)
[2022-11-07 18:43] LABS: Albumin* 3.6 g/dL (3.3-5.0); Chloride* 99 mmol/L (96-114)
[2022-11-07 18:44] LABS: Potassium* 3.6 mmol/L (3.6-5.1); Sodium* 133 mmol/L (135-149)
[2022-11-07 18:46] LABS: Anion Gap 10 mEq/L (7-15); Bilirubin Direct* 0.2 mg/dL (0.0-0.5); Bilirubin Total* 0.7 mg/dL (0.1-1.5); Carbon Dioxide* 24 mmol/L (20-32); Creatinine* 1.1 mg/dL (0.5-1.5); Est. Creatinine Clearance* 26.86; Estimated Glomerular Filt Rate 49 ml/min; Slide Review Reflex No; Total Protein* 7.2 g/dL (6.0-8.3)
[2022-11-07 18:47] LABS: Alanine Aminotransferase* 11 U/L (4-35); Alkaline Phosphatase* 75 U/L (40-150); Aspartate Amino Transferase* 19 U/L (12-35); Blood Urea Nitrogen* 24 mg/dL (7-30); Calcium* 8.7 mg/dL (8.4-10.6); Glucose* 108 mg/dL (60-115)
--- NOTE | 2022-11-07 19:16 | CRLHL7_ITS ---
For Patients: As a result of the Cures Act, medical imaging exams and procedure reports are released immediately into your electronic medical record. You may view this report before your referring provider. If you have questions, please contact your health care provider. Indication: Rib fracture, hypoxia Comparison: Single view chest August 07, 2022 Technique: Single AP view chest Findings: There is hyperinflation and chronic interstitial change. There are diffusely increased interstitial markings consistent with pulmonary edema. There is minimal basilar atelectasis and parenchymal scar. Cardiac silhouette is mildly prominent with a tortuous thoracic aorta. The bony thorax is grossly intact. Impression: Diffusely increased interstitial markings consistent with pulmonary edema. Dictated by Huey Beatty MD @ 11/07/2022 8:23:47 PM (Electronically Signed)
[2022-11-07 20:10] LABS: PCR FLU A Negative PCR FLU A (Negative); PCR FLU B Negative PCR FLU B (Negative); PCR RSV Negative PCR RSV (Negative)
[2022-11-07 20:10] LABS: NT Pro B Type NatriureticPept* 11100 pg/mL
[2022-11-07 20:11] LABS: SARS PCR* Negative SARS-CoV-2 (Negative)
--- NOTE | 2022-11-07 21:46 | PM.IMHP1 ---
Hospitalist- H&P: HPI History of Present Illness Time Seen by Provider: 20:30 Date Seen: 11/07/22 Chief complaint: Left chest pain status post fall 11/06/2022 Narrative: Carmel Chang is a 87 year old woman who lives at [place], [place], and presents with complaint of left-sided chest pain since a fall that she sustained on 11/06/2022. She notes increasing dyspnea since then as well. Unable to clear throat due to the increasing pain she experiences when trying to clear throat. Denies fevers, rigors, diaphoresis. Known to have Parkinson's disease. Has unstable gait in association with the same and she sometimes loses her balance. Two nights ago on 11/05/2022 patient had a fall after losing her balance and she fell on her bottom. She has some residual discomfort in her bottom since then, but vastly improved. Last night, 11/06/2022, she was region in her closet and lost her balance again, fell against the door with her left elbow striking her left chest and has had left-sided chest pain since. Did not lose her consciousness with either of these falls. Did not strike her head with either of these falls. Has full recollection of all the events associated there with. Denies any other discomforts. No lacerations, abrasions, or other contusions from these falls. Attempted relief with oxycodone that she has available to take once daily, but that was not enough to provide her sustained relief and thus she presents today for further assessment. Review of Systems Status of ROS: Reports: 10 or more systems reviewed and unremarkable except as noted in History and below Narrative: No syncope or near syncope, orthostasis, lightheadedness, or dizziness. No chest heaviness, pressure, or tightness. Does have chest pain that is worse with deep breathing or coughing or sneezing. Hard for her to cough and clear her throat because of the pain in the left side of the chest associated with this. Denies abdominal discomfort, nausea, vomiting. Denies dysuria, urgency, frequency, hematuria. Acknowledges chronic urinary incontinence, worse with coughing, sneezing, standing. She tells me she no longer takes diuretics because she loses control of her bladder altogether which is embarrassing for her. No recent diarrhea or constipation. Chronic venous stasis changes to bilateral lower extremities with venous stasis dermatitis as well as superficial ulcers in various stages of healing. 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) use of anticoagulants (ICD-10) Chronic atrial fibrillation ?I48.20 - Chronic atrial fibrillation, unspecified (ICD-10) Depression ?F32.A - Depression, unspecified (ICD-10) Essential hypertension ?I10 - Essential (primary) hypertension (ICD-10) Generalized OA ?M15.9 - Polyosteoarthritis, unspecified (ICD-10) Cellulitis of left lower leg ?L03.116 - Cellulitis of left lower limb (ICD-10) Morbid obesity ?E66.01 - Morbid (severe) obesity due to excess calories (ICD-10) Durable power of ip attorney in chart Health care directive on file ?Z78.9 - Other specified health status (ICD-10) Closed right ankle fracture ?S82.891A - Other fracture of right lower leg, initial encounter for closed fracture (ICD-10) Osteoarthritis of right shoulder ?M19.011 - Primary osteoarthritis, right shoulder (ICD-10) Osteoarthritis of left shoulder ?M19.012 - Primary osteoarthritis, left shoulder (ICD-10) Right rotator cuff tear arthropathy ?M75.101 - Unspecified rotator cuff tear or rupture of right shoulder, not specified as traumatic (ICD-10) ?M12.811 - Other specific arthropathies, not elsewhere classified, right shoulder (ICD-10) Osteoarthritis of left knee ?M17.12 - Unilateral primary osteoarthritis, left knee (ICD-10) Chronic diastolic CHF (congestive heart failure), NYHA class 2 ?I50.32 - Chronic diastolic (congestive) heart failure (ICD-10) Parkinson disease ?G20 - Parkinson's disease (ICD-10) Venous stasis ulcers of both lower extremities ?I83.019 - Varicose veins of right lower extremity with ulcer of unspecified site (ICD-10) ?I83.029 - Varicose veins of left lower extremity with ulcer of unspecified site (ICD-10) ?L97.919 - Non-pressure chronic ulcer of unspecified part of right lower leg with unspecified severity (ICD-10) ?L97.929 - Non-pressure chronic ulcer of unspecified part of left lower leg with unspecified severity (ICD-10) Hypertension ?I10 - Essential (primary) hypertension (ICD-10) Urinary tract infection ?N39.0 - Urinary tract infection, site not specified (ICD-10) Ulcer of lower extremity ?L97.909 - Non-pressure chronic ulcer of unspecified part of unspecified lower leg with unspecified severity (ICD-10) Chest pain ?R07.9 - Chest pain, unspecified (ICD-10) Cellulitis of leg ?L03.119 - Cellulitis of unspecified part of limb (ICD-10) Atrial fibrillation ?I48.91 - Unspecified atrial fibrillation (ICD-10) Surgical History H/O excision of mass (09/21/00) ?Z98.890 - Other specified postprocedural states (ICD-10) 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 Lives at [place], [place]. No children. Nephew, Michi Chang, is her POA. Requests DNR/DNI resuscitation status. What is your current living situation?: I presently have a place to live Problems where you live: no known problems Problems where you live details: none In the past 12 months, utilities in danger of being shut off: unable to answer In the past 12 mos, have been you worried that your food would run out before you had money to buy more?: unable to answer In the past 12 mos, the food you bought just didn't last and you didn't have money to buy more?: unable to answer Highest level of school completed/degree received: high school graduate Smoking Status: Former smoker What tobacco products do you use: cigarettes Smoking quit date/years: >15 years ago Do you use any of these nicotine containing products: None Second hand tobacco smoke exposure: No How often do you have a drink containing alcohol: never AUDIT-C Alcohol total score: 0 Non-prescribed substance use: denies use Caffeine: No How often does anyone, including family, friends and others, physically hurt you: unable to answer How often does anyone, including family, friends and others, insult or talk down to you: unable to answer How often does anyone, including family, friends and others, threaten you with harm: unable to answer How often does anyone, including family, friends and others, scream or curse at you: unable to answer service: No Meds Home Medications and Allergies Home Medications Medication Instructions Recorded Confirmed Type amlodipine 5 mg tablet 5 mg PO QDAY 12/26/21 08/07/22 History atenolol 50 mg tablet 50 mg PO DAILY 12/26/21 08/07/22 History fluoxetine 10 mg capsule 20 mg PO DAILY 12/26/21 11/07/22 History furosemide 40 mg tablet 40 mg PO QAM 12/26/21 08/07/22 History losartan 100 mg tablet 100 mg PO DAILY 12/26/21 11/07/22 History warfarin 5 mg tablet 2 mg PO .UD 12/26/21 11/07/22 History wrvlpfmr-ljgcnzd-bijv-lutein tablet 1 tab PO 12/31/21 07/01/22 History carbidopa 25 mg-levodopa 100 mg 1 tab PO TID 08/07/22 08/07/22 History tablet oxycodone-acetaminophen 5 mg-325 1 tab PO HS PRN pain 08/07/22 11/07/22 History mg tablet (Percocet) gabapentin 100 mg capsule 100 mg PO TID 08/08/22 11/07/22 History acetaminophen 325 mg tablet 650 mg PO BID pain 11/07/22 11/07/22 History carbidopa 25 mg-levodopa 100 mg 1 tab PO 3XD 11/07/22 11/07/22 History disintegrating tablet cetirizine 10 mg tablet (24Hour 10 mg PO DAILY 11/07/22 11/07/22 History Allergy) nystatin 100,000 unit/gram topical 1 applic topical BID PRN 11/07/22 11/07/22 History powder torsemide 20 mg tablet 20 mg PO 3XW 11/07/22 11/07/22 History Allergies Allergy/AdvReac Type Severity Reaction Status Date / Time hydrochlorothiazide Allergy Verified 11/07/22 14:31 Sulfa (Sulfonamide Allergy Rash Verified 11/07/22 14:31 Antibiotics) Exam Narrative: Exam Narrative: Examine her in the emergency department. Sitting in a semi recumbent position on the exam table propped up by multiple pillows. Has multiple blankets on her indicating that she was cold, but now that she has a blankets on she feels better. Vision and hearing are grossly normal. Alert and oriented to self, place, time, situation. Forget certain words and has difficulties completing sentences as she is trying to remember certain words, such as she was unable to remember the word phrase living will. Friendly, cooperative, articulate. Mood and affect are congruent. External auditory canals and tympanic membranes are normal. Midline nasal septum. Moist buccal mucosa. Dentition in fair repair. Neck is supple. Midline trachea. Normal thyroid. No obvious JVD. No carotid bruits. Submandibular gland bilaterally are mildly prominent, nontender, soft. No other head or neck lymphadenopathy. Lungs are clear to auscultation but with shallow breaths. Does have dry hacky cough when I ask her to deep breath. No wheezing, rhonchi, or rales. Heart tones with irregular rhythm, normal S1-S2. Soft systolic murmur. Abdomen with active bowel sounds, soft, nontender. Bilateral lower extremity venous stasis dermatitis with small venous stasis ulcers, superficial. No weeping. Chronic edema. Decreased range of motion of bilateral Achilles tendons. No focal motor neurologic deficits. Const: Vital Signs, click to edit/add: Vital Signs - 24 hr 11/07/22 14:23 11/07/22 14:48 11/07/22 14:55 Temperature 98.9 F Pulse Rate 95 Pulse Rate [Pulse Oximeter] 103 H Respiratory Rate 24 Blood Pressure 138/103 H Blood Pressure [Le ft Forearm] 115/74 Pulse Oximetry 86 L 94 Oxygen Delivery Me thod Room Air 11/07/22 15:02 11/07/22 15:07 11/07/22 18:39 Temperature Pulse Rate 91 79 Pulse Rate [Pulse Oximeter] Respiratory Rate Blood Pressure 149/86 H Blood Pressure [Le ft Forearm] Pulse Oximetry 96 98 Oxygen Delivery In thod 11/07/22 18:40 11/07/22 18:45 11/07/22 19:00 Temperature Pulse Rate 86 87 85 Pulse Rate [Pulse Oximeter] Respiratory Rate Blood Pressure 169/92 H Blood Pressure [Le ft Forearm] Pulse Oximetry 98 90 86 L Oxygen Delivery In thod 11/07/22 19:02 11/07/22 19:15 Temperature Pulse Rate 85 82 Pulse Rate [Pulse Oximeter] Respiratory Rate Blood Pressure 182/97 H Blood Pressure [Le ft Forearm] Pulse Oximetry 85 L 96 Oxygen Delivery Me thod Documenting provider has reviewed patient's vital signs: yes Hospitalist - H&P: Result Labs Labs: Short CBC 11/07/22 Range/Units 14:54 WBC 10.03 (4.50-11.00) K/uL Hgb 11.4 L (12.0-16.0) gm/dL Hct 36.1 (33.0-51.0) % Plt Count 256 (140-440) K/uL BMP 11/07/22 14:54 Sodium 133 L Potassium 3.6 Chloride 99 Carbon Dioxide 24 BUN 24 Creatinine 1.1 Glucose 108 Calcium 8.7 Liver Function 11/07/22 Range/Units 14:54 Total Bilirubin 0.7 (0.1-1.5) mg/dL Direct Bilirubin 0.2 (0.0-0.5) mg/dL AST 19 (12-35) U/L ALT 11 (4-35) U/L Alkaline Phosphatase 75 (40-150) U/L Albumin 3.6 (3.3-5.0) g/dL Urine 11/07/22 Range/Units 16:10 Urine Color Yellow (Yellow) Urine Appearance Cloudy A (Clear) Urine pH 6.0 (5.0-8.5) Ur Specific [place] 1.015 (1.000-1.030) Urine Protein 1+ A (Negative) Urine Glucose (UA) Negative (Negative) Imaging CT scan of abdomen and pelvis: Attestation: I have reviewed the pertinent imaging results. Radiologist's impression: 11/07/2022 IMPRESSION: Acute nondisplaced left anterior 7th rib fracture. No splenic injury as questioned. Moderate intra/extrahepatic ductal dilation to the level of the ampulla. Obstructing mass is not excluded. Recommend correlation with LFTs including bilirubin. Consider further evaluation with nonemergent MRCP/ERCP if available. Indeterminate 7 millimeter hyperdensity along the posterior bladder adjacent to the UVJ, possibly stone or mass. Recommend correlation for hematuria. No hydronephrosis to suggest obstruction. Incidental 3.9 centimeter left ovarian cystic lesion for which annual surveillance is recommended. Multiple mildly enlarged retroperitoneal lymph nodes of uncertain clinical significance. Colonic diverticulosis. Chest x-ray: Attestation: I have reviewed the pertinent imaging results. Radiologist's impression: 11/07/2022 AP view only. Radiology interpretation still pending. Mildly enlarged cardiac silhouette. Mild encephalization. Assessment and Plan Assessment and plan (1) Fracture of rib: Problem comment: Left 7th rib fracture, nondisplaced, status post fall 11/06/2022. Pain in association with the same. May be developing pulmonary contusion. Status: Acute (2) Respiratory failure: Problem comment: Hypoxia in association with the same. In part related to heart failure. May have an element of pulmonary contusion status post fall 11/06/2022. Status: Acute (3) UTI (urinary tract infection): Problem comment: Acute on chronic urinary incontinence as her symptom. Ceftriaxone 1 g IV Q 24 hours pending results of urine culture. Status: Acute (4) Acute on chronic diastolic heart failure: Status: Acute (5) Chronic diastolic CHF (congestive heart failure), NYHA class 2: Problem comment: Echo 08/08/2022 Normal LV size, mildly increased wall thickness, normal global systolic function with estimated EF of 60-65%. Mildly enlarged left atrium. Aortic valve is trileaflet, sclerotic and calcified, mild stenosis (mean gradient of 12 mm Hg) and no regurgitation. Mitral valve is sclerotic, mild mitral regurgitation. Mild to moderate tricuspid regurg did station. Normal estimated pulmonary pressures by tricuspid regurgitation velocity and right atrial pressure (23 mm Hg plus RAP). Compared to the prior study of 09/12/2020 there is no significant change. Continue with beta-misha, angiotensin receptor misha, hold amlodipine, restart furosemide. Status: Chronic (6) Chronic atrial fibrillation: Problem comment: -OAC and good rate control (atenolol) Status: Chronic (7) Warfarin anticoagulation: Problem comment: -afib -daily INR, within therapeutic range between 2 and 3 -continue warfarin, SUPRATHERAPEUTIC 08/11/22 at 3.56, adjust for goal Status: Chronic (8) Chronic pain: Problem comment: osteoarthritis, takes percocet nightly Status: Chronic (9) Opioid dependence: Status: Chronic (10) Lymphedema: Problem comment: redress unna boots, use HELLEN wraps if unna boots unavailable - stop amlodipine Status: Chronic (11) Unstable gait: Problem comment: Continue PT and OT, anticipate short term rehab at discharge Status: Acute (12) At risk for falls: Status: Acute (13) Physical deconditioning: Status: Chronic (14) Physical debility: Status: Chronic (15) Essential hypertension: Problem comment: atenolol, restart lasix and losartan, stop amlodipine due to edema Status: Chronic (16) Morbid obesity: Problem comment: BMI 46.9 Status: Chronic (17) Parkinson disease: Problem comment: mildly progressive Parkinson's disease- on sinemet last neurology in 05/22 (Pipe Scott MD ) Status: Chronic (18) Venous stasis ulcers of both lower extremities: Problem comment: At home: Followed by Navdeep Peña MD. She does wear compression stockings. No rest pain or claudication. She does use lymphedema pumps daily, double layer compression wraps and leg elevation. plan is for sclerotherapy of superficial incompetent veins bilaterally (scheduled in July 2022) Status: Chronic Plan 1. Reviewed impression with patient 2. Admit to the hospital for inpatient level of care 3. Oxygen supplementation. Monitor venous blood gases. Initiate diuresis with IV furosemide tonight and then oral furosemide tomorrow. 4. Pulmonary hygiene, incentive spirometry, Aerobika device, splint chest with pillow when coughing, physical therapy, occupational therapy. 5. Schedule acetaminophen 650 mg orally 4 times daily. As needed oxycodone 2.5 mg q.4 hours. Ketorolac 15 mg IV once tonight. Consider lidocaine patch. 6. Continue with pharmacologic treatment for Parkinson's disease. 7. Continue with treatment for venous stasis dermatitis and superficial venous stasis ulcers of bilateral lower extremities. 8. Telemetry, EKG, daily PT/INR, daily warfarin dosing for INR goal of 2-3. 9. IV ceftriaxone for possible urinary tract infection pending results of urine culture. 10. PA and lateral chest x-ray tomorrow morning. 11. No need to repeat transthoracic echocardiogram, 1 was just obtained in July of this year. 12. manager creative services to assist with discharge disposition planning. Need to sort out the level of care she is currently receiving at [facility] and consider higher level of care for warranted. Need to sort through this over time. 13. Patient agreeable with above stated plans and recommendations.
[2022-11-07] MEDS: CARBIDOPA-LEVODOPA 25-100 TABLET 1 TAB PO (21:53)
[2022-11-07] MEDS: GABAPENTIN 100 MG CAPSULE PO (21:53)
[2022-11-07] MEDS: KETOROLAC 30 MG/ML inj 15 MG IVP (21:53)
[2022-11-07] MEDS: ACETAMINOPHEN 325 MG TABLET 650 MG PO (21:54)
[2022-11-07] MEDS: SODIUM CHLORIDE 0.9 % (FLUSH) 10 ML SYRINGE 5 ML IVF (21:54)
[2022-11-07] MEDS: MORPHINE 4 MG/ML INJ IVP (22:27)
[2022-11-07] MEDS: WARFARIN 5 MG TABLET 2 MG PO (22:35)
[2022-11-08] VITALS (8 sets, daily range): BP systolic 130–165; BP diastolic 67–89; PULSE 59–92; RESP 16–22; TEMP 36.5–36.9; O2SAT 91–96
[2022-11-08 06:27] LABS: HCO3 VBG 29 mmol/L (21-28); PCO2 VBG 48 mmHG (40-50); PO2 VBG 29.1 mmHG (25-47); pH VBG 7.382 (7.32-7.43)
[2022-11-08 06:34] LABS: Hematocrit 34.8 % (33.0-51.0); Mean Corpuscular HGB Conc 32 gm/dL (32-36); Mean Corpuscular Hemoglobin 30 pg (26-34); Mean Corpuscular Volume 95 fL (80-100); Platelet Count* 217 K/uL (140-440); Red Blood Count 3.66 m/uL (4.00-5.20); White Blood Count* 6.87 K/uL (4.50-11.00)
[2022-11-08 06:47] LABS: Slide Review Reflex No
--- NOTE | 2022-11-08 06:47 | PC.NURSE ---
Patient admitted to the unit at 2105. A&Ox3 with some confusion. Pain on the L. side d/t fall 7/10 on admission and after pain medications went down to 2-3/10. Incontinent, brief in place. Frequent T&R. BLE w/venous stasis ulceration. Healing ulcer on L. 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 Afebrile. Requiring 2 Lt NC on admission and weaned to 1Lt. Sats 90-95. Trialed no O2 but sats dropped to 85%. Encouraged IS and Aerobika use. Patient rested well during noc.
[2022-11-08 06:56] LABS: Albumin* 3.2 g/dL (3.3-5.0); Chloride* 99 mmol/L (96-114); Sodium* 133 mmol/L (135-149)
[2022-11-08 06:57] LABS: Potassium* 3.8 mmol/L (3.6-5.1); Prothrombin Time 23.8 Seconds
[2022-11-08 06:59] LABS: Anion Gap 8 mEq/L (7-15); Carbon Dioxide* 26 mmol/L (20-32); Est. Creatinine Clearance* 29.54; Estimated Glomerular Filt Rate 55 ml/min
[2022-11-08 07:00] LABS: Blood Urea Nitrogen* 25 mg/dL (7-30); Calcium* 8.3 mg/dL (8.4-10.6); Glucose* 84 mg/dL (60-115); Phosphorus* 4.1 mg/dL (2.5-4.5)
--- NOTE | 2022-11-08 07:00 | CRLHL7_ITS ---
For Patients: As a result of the Century Cures Act, medical imaging exams and procedure reports are released immediately into your electronic medical record. You may view this report before your referring provider. If you have questions, please contact your health care provider. INDICATION: Hypoxia. TECHNIQUE: Chest 2 views. COMPARISON: 11/07/2022. FINDINGS: Cardiovascular and mediastinum: Stable cardiomegaly and pulmonary vascular congestion. Lungs and pleural spaces: Lungs are clear. No sign of infiltrate or mass. No sign of pleural effusion. No pneumothorax. Bones and soft tissues: No significant findings. IMPRESSION: No signs of acute injury. No significant change in appearance of what may be chronic CHF without overt edema. Dictated by Phillip Cha MD @ 11/08/2022 9:46:14 AM (Electronically Signed)
[2022-11-08] MEDS: OXYCODONE 5 MG TABLET 2.5 MG PO ×2 (07:14→21:33)
[2022-11-08 07:16] LABS: Procalcitonin* 0.32 ng/mL (<0.50)
[2022-11-08 07:20] LABS: Troponin I* 0.15 ng/mL (0.01-0.04)
--- NOTE | 2022-11-08 08:28 | P.IMPN_ITS ---
Progress Note: A&P Assessment and plan (1) Acute on chronic diastolic heart failure: Problem details: -mild bump in her troponin this morning. ECG reviewed. No exertional or unstable angina. I did have her chewing aspirin and we started metoprolol [address] of her atenolol. I did decrease her losartan to 50 mg. I kept her amlodipine at 5 mg. She was given another dose of 40 mg IV Lasix today after her chest x-ray. I will switch to 80 mg of p.o. Lasix with additional potassium starting tomorrow morning. Status: Acute (2) Acute on chronic respiratory failure with hypoxia: Problem details: Multifactorial. May have an element of pulmonary contusion status post fall 11/06/2022. Status: Acute (3) Fracture of rib: Problem details: Left 7th rib fracture, nondisplaced, status post fall 11/06/2022. Pain in association with the same. May be developing pulmonary contusion. This may also explain Status: Acute (4) UTI (urinary tract infection): Problem details: Acute on chronic urinary incontinence as her symptom. Ceftriaxone 1 g IV Q 24 hours pending results of urine culture. Proteus mirabilis noted on urine culture. Switching to oral cephalexin. Status: Acute (5) Chronic atrial fibrillation: Problem details: -OAC and good rate control (atenolol discontinue, metoprolol 25 mg p.o. b.i.d. started ) Status: Chronic (6) Warfarin anticoagulation: Problem details: -afib -daily INR, within therapeutic range between 2 and 3 Status: Chronic (7) Chronic pain: Problem details: osteoarthritis, takes percocet nightly Status: Chronic (8) Opioid dependence: Status: Chronic (9) Lymphedema: Problem details: redress unna boots, use HELLEN wraps if unna boots unavailable - stop amlodipine Status: Chronic (10) Unstable gait: Problem details: Continue PT and OT, anticipate short term rehab at discharge Status: Acute (11) At risk for falls: Status: Acute (12) Physical deconditioning: Status: Chronic (13) Physical debility: Status: Chronic (14) Essential hypertension: Problem details: atenolol swapped for metoprolol cut losartan in half continue amlodipine Status: Chronic (15) Morbid obesity: Problem details: BMI 46.9 Status: Chronic (16) Parkinson disease: Problem details: mildly progressive Parkinson's disease- on sinemet last neurology in 05/22 (Pipe Scott MD ) Status: Chronic (17) Venous stasis ulcers of both lower extremities: Problem details: At home: Followed by Navdeep Peña MD. She does wear compression stockings. No rest pain or claudication. She does use lymphedema pumps daily, double layer compression wraps and leg elevation. plan is for sclerotherapy of superficial incompetent veins bilaterally (scheduled in July 2022) Status: Chronic Subjective Date Seen: 11/08/22 Interval history: Daily Progress Note - Hospital Medicine Day #: 2 CC: OVERNIGHT UPDATES FROM STAFF & MED, LAB, IMAGING UPDATES Blood pressure been mildly elevated 156/88, 153/89 Pulse rate has ranged mostly in the 80s. Respiratory rate 20 to 22 Pulse ox 95 to 96% Weight this morning 114.4 kilos bed scale, 110 kilos bed scale on admission. 108 kilos at her last admission BMI 49 CBC is stable overnight. INR 2.0 Chemistries are reassuring, sodium is just a little low but stable at 133 Troponin 0.15, repeat 0.12 EKG done this morning at 5:30 a.m. shows atrial fibrillation but no acute ischemic changes Urine culture sent over from her clinic visit on 11/06 reveals proteus mirabilis at is mostly pansensitive other than a resistance to Macrobid. Chest x-ray from admission Impression: Diffusely increased interstitial markings consistent with pulmonary edema f/u CXR today 11/08 No signs of acute injury. No significant change in appearance of what may be chronic CHF without overt edema. Echo done in July: Normal LV size, mildly increased wall thickness. EF 60-65%. Normal estimated pulmonary pressures. No change from when her heart was last imaged on 09/19 Objective: Vitals: see above Lungs: Clear. Cardiac: S1S2. Disposition/Potential discharge - Likely to return to previous living situation. Today I spent 50minutes seeing the patient, reviewing Expanse and EPIC notes/di agnostics, discussing the care plan with our care time that includes social work, PT/OT, pharmacy, RT, long-term and documenting my impressions and plan in the medical record. Exam Const: Vital Signs, click to edit/add: Vital Signs - 24 hr 11/07/22 14:23 11/07/22 14:48 11/07/22 14:55 Temperature 98.9 F Pulse Rate 95 Pulse Rate [Pulse Oximeter] 103 H Respiratory Rate 24 Blood Pressure 138/103 H Blood Pressure [Le ft Forearm] 115/74 Blood Pressure [Ri ght Arm] Pulse Oximetry 86 L 94 Oxygen Delivery Me thod Room Air Oxygen Flow Rate 11/07/22 15:02 11/07/22 15:07 11/07/22 18:39 Temperature Pulse Rate 91 79 Pulse Rate [Pulse Oximeter] Respiratory Rate Blood Pressure 149/86 H Blood Pressure [Le ft Forearm] Blood Pressure [Ri ght Arm] Pulse Oximetry 96 98 Oxygen Delivery Me thod Oxygen Flow Rate 11/07/22 18:40 11/07/22 18:45 11/07/22 19:00 Temperature Pulse Rate 86 87 85 Pulse Rate [Pulse Oximeter] Respiratory Rate Blood Pressure 169/92 H Blood Pressure [Le ft Forearm] Blood Pressure [Ri ght Arm] Pulse Oximetry 98 90 86 L Oxygen Delivery Me thod Oxygen Flow Rate 11/07/22 19:02 11/07/22 19:15 11/07/22 22:00 Temperature 98.7 F Pulse Rate 85 82 Pulse Rate [Pulse Oximeter] 101 H Respiratory Rate 22 Blood Pressure 182/97 H Blood Pressure [Le ft Forearm] Blood Pressure [Ri ght Arm] 135/99 H Pulse Oximetry 85 L 96 96 Oxygen Delivery Me thod Nasal Cannula Oxygen Flow Rate 2.0 11/07/22 22:15 11/07/22 23:00 11/07/22 23:00 Temperature 98.9 F Pulse Rate 82 Pulse Rate [Pulse Oximeter] 96 Respiratory Rate 22 22 Blood Pressure Blood Pressure [Le ft Forearm] Blood Pressure [Ri ght Arm] 156/88 H Pulse Oximetry 96 95 Oxygen Delivery Me thod Nasal Cannula Nasal Cannula Oxygen Flow Rate 2.0 2.0 11/08/22 00:03 11/08/22 04:13 Temperature 97.7 F Pulse Rate Pulse Rate [Pulse Oximeter] 80 Respiratory Rate 22 20 Blood Pressure Blood Pressure [Le ft Forearm] Blood Pressure [Ri ght Arm] 153/89 H Pulse Oximetry 96 96 Oxygen Delivery Me thod Nasal Cannula Nasal Cannula Oxygen Flow Rate 2.0 1.0 Labs Labs: Laboratory Results - last 24 hr 11/07/22 11/07/22 11/07/22 14:54 16:10 17:31 WBC 10.03 RBC 3.78 L Hgb 11.4 L Hct 36.1 MCV 96 MCH 30 MCHC 32 RDW Coeff of Mandeep 13.5 Plt Count 256 Neut % (Auto) 83.0 H Lymph % (Auto) 2.1 L [place] % (Auto) 14.0 H Eos % (Auto) 0.3 Baso % (Auto) 0.3 Neut # (Auto) 8.30 H Lymph # (Auto) 0.20 L [place] # (Auto) 1.40 H Eos # (Auto) 0.03 Baso # (Auto) 0.03 Abs Immat Gran (auto) 0.03 Imm/Tot Granulo (auto) 0.3 INR 1.84 H VBG pH VBG pCO2 VBG pO2 VBG HCO3 Sodium 133 L Potassium 3.6 Chloride 99 Carbon Dioxide 24 Anion Gap 10 BUN 24 Creatinine 1.1 Estimated Creat Clear 26.86 Estimated GFR 49 Glucose 108 Calcium 8.7 Phosphorus Total Bilirubin 0.7 Direct Bilirubin 0.2 AST 19 ALT 11 Alkaline Phosphatase 75 Troponin I NT-Pro-B Natriuret Pep 65375 Total Protein 7.2 Albumin 3.6 Procalcitonin Urine Color Yellow Urine Appearance Cloudy A Urine pH 6.0 Ur Specific [place] 1.015 Urine Protein 1+ A Urine Glucose (UA) Negative Urine Ketones Negative Urine Blood 1+ A Urine Nitrite Negative Urine Bilirubin Negative Urine Urobilinogen 0.2 Ur Leukocyte Esterase 3+ A Urine RBC 0-2 Urine WBC 50-100 A Ur Squamous Epith Cells None Urine Bacteria Many A SARS-CoV-2 (PCR) Influenza Type A (PCR) Influenza Type B (PCR) RSV (PCR) Lab Acknowledgement Test Added POC Creatinine 1.2 11/07/22 11/07/22 11/08/22 19:30 19:34 05:41 WBC 6.87 RBC 3.66 L Hgb 11.0 L Hct 34.8 MCV 95 MCH 30 MCHC 32 RDW Coeff of Mandeep Plt Count 217 Neut % (Auto) Lymph % (Auto) [place] % (Auto) Eos % (Auto) Baso % (Auto) Neut # (Auto) Lymph # (Auto) [place] # (Auto) Eos # (Auto) Baso # (Auto) Abs Immat Gran (auto) Imm/Tot Granulo (auto) INR 2.00 H VBG pH 7.382 VBG pCO2 48 VBG pO2 29.1 VBG HCO3 29 H Sodium 133 L Potassium 3.8 Chloride 99 Carbon Dioxide 26 Anion Gap 8 BUN 25 Creatinine 1.0 Estimated Creat Clear 29.54 Estimated GFR 55 Glucose 84 Calcium 8.3 L Phosphorus 4.1 Total Bilirubin Direct Bilirubin AST ALT Alkaline Phosphatase Troponin I 0.15 H* NT-Pro-B Natriuret Pep Total Protein Albumin 3.2 L Procalcitonin 0.32 Urine Color Urine Appearance Urine pH Ur Specific [place] Urine Protein Urine Glucose (UA) Urine Ketones Urine Blood Urine Nitrite Urine Bilirubin Urine Urobilinogen Ur Leukocyte Esterase Urine RBC Urine WBC Ur Squamous Epith Cells Urine Bacteria SARS-CoV-2 (PCR) Negative SARS-CoV-2 Influenza Type A (PCR) Negative PCR FLU A Influenza Type B (PCR) Negative PCR FLU B RSV (PCR) Negative PCR RSV Lab Acknowledgement Test Added POC Creatinine
[2022-11-08] MEDS: GABAPENTIN 100 MG CAPSULE PO ×3 (08:37→21:30)
[2022-11-08] MEDS: atenoloL 50 MG TABLET PO (08:37)
[2022-11-08] MEDS: LOSARTAN POTASSIUM 50 MG TABLET 100 MG PO (08:37)
[2022-11-08] MEDS: AMLODIPINE 5 MG TABLET PO (08:37)
[2022-11-08] MEDS: ACETAMINOPHEN 325 MG TABLET 650 MG PO ×4 (08:37→21:30)
[2022-11-08] MEDS: CARBIDOPA-LEVODOPA 25-100 TABLET 1 TAB PO ×3 (08:37→21:34)
[2022-11-08] MEDS: CETIRIZINE HCL 10 MG TABLET PO (08:37)
[2022-11-08] MEDS: SODIUM CHLORIDE 0.9 % (FLUSH) 10 ML SYRINGE 5 ML IVF ×2 (08:39→21:34)
[2022-11-08] MEDS: MORPHINE 4 MG/ML INJ IVP (08:39)
[2022-11-08 09:15] LABS: NT Pro B Type NatriureticPept* 12300 pg/mL
[2022-11-08] MEDS: LOSARTAN POTASSIUM 50 MG TABLET PO (09:32)
[2022-11-08 09:54] LABS: Troponin I* 0.12 ng/mL (0.01-0.04)
[2022-11-08] MEDS: ASPIRIN 81 MG TAB.CHEW 324 MG PO (09:59)
[2022-11-08] MEDS: cephALEXin 500 MG CAPSULE PO ×2 (10:00→21:30)
[2022-11-08] MEDS: FLUOXETINE HCL 20 MG CAPSULE PO (10:00)
[2022-11-08] MEDS: METOPROLOL TARTRATE 25 MG TABLET PO ×2 (10:00→21:33)
[2022-11-08] MEDS: FUROSEMIDE 10 MG/ML inj 40 MG IVP (10:06)
[2022-11-08] MEDS: POTASSIUM CHLORIDE 10 MEQ CAPSULE ER 20 MEQ PO (12:05)
--- NOTE | 2022-11-08 12:47 | PC.NURSE ---
Elevated BP, requiring 1L NC. Complaining of pain in coccyx area- relieved w/ repositioning and 2.5 mg of oxy this AM. Trop level elevated, but down from yesterday. LS- coarse. Generalized edema. Using aerobika. Incontinent of urine, 2 wet briefs today. Venous stasis wounds LEs; open, weeping wound in left hip folds- creams ordered & applied. PIV in right FA- SL'd. Has not gotten OOB yet. Will continue to monitor & follow POC. Dominique Siddiqi RN
[2022-11-08] MEDS: TRIAMCINOLONE ACETONIDE CREAM 0.1 % 1 APPLIC TOPICAL ×2 (13:53→21:35)
--- NOTE | 2022-11-08 14:06 | REH.OT ---
OT: Order received, chart reviewed, met with pt briefly, however spoke with MD who reports elevated troponin level of .15 with possible Stemi. Therapies will hold on progressing activity level. Noted pt with UE tremors and she reports has not been using AE for eating or UB self cares, Will further assess if would benefit. Pt was dependent to transfer bed to [facility] with airmat. Eval rescheduled, anticipating pt would benefit from SNF with therapies at discharge based on current status and reports has had recent falls and difficulty managing self cares.
[2022-11-08] MEDS: WARFARIN 3 MG TABLET PO (16:34)
[2022-11-08] MEDS: ENOXAPARIN 30 MG/0.3ML INJ SUBCUT (21:34)
--- NOTE | 2022-11-08 23:06 | PC.NURSE ---
Shift note: Pt is pleasant, cooperate with care and treatment. Ambulate with 2, walker and GB. Pain was good until at 2100 where pt complained of left rib pain. Oxycodone given which was effective. Pt has been bed most of the shift. A/Ox3. Good appetite, able to eat about 100% of dinner served.
[2022-11-09] VITALS (9 sets, daily range): BP systolic 109–150; BP diastolic 66–98; PULSE 61–77; RESP 16–20; TEMP 36.3–36.8; O2SAT 90–94
[2022-11-09] MEDS: OXYCODONE 5 MG TABLET 2.5 MG PO ×3 (04:15→16:49)
[2022-11-09 06:39] LABS: Hematocrit 36.1 % (33.0-51.0); Hemoglobin* 11.2 gm/dL (12.0-16.0); Mean Corpuscular HGB Conc 31 gm/dL (32-36); Mean Corpuscular Hemoglobin 30 pg (26-34); Mean Corpuscular Volume 96 fL (80-100); Platelet Count* 237 K/uL (140-440); Red Blood Count 3.77 m/uL (4.00-5.20); White Blood Count* 6.48 K/uL (4.50-11.00)
[2022-11-09 06:41] LABS: HCO3 VBG 28 mmol/L (21-28); PCO2 VBG 47 mmHG (40-50); PO2 VBG 31.4 mmHG (25-47); pH VBG 7.386 (7.32-7.43)
--- NOTE | 2022-11-09 06:53 | PC.NURSE ---
23-07: Pt rested well, oxycodone once for pain, vss on 0.5 lpm of oxygen, trialed room air and was 87-89%, encouraged tcdb/is.
[2022-11-09 06:55] LABS: Slide Review Reflex No
[2022-11-09 07:07] LABS: Prothrombin Time 23.7 Seconds
[2022-11-09 08:02] LABS: Chloride* 101 mmol/L (96-114); Sodium* 135 mmol/L (135-149)
[2022-11-09 08:03] LABS: Alanine Aminotransferase* 6 U/L (4-35); Albumin* 3.2 g/dL (3.3-5.0); Alkaline Phosphatase* 79 U/L (40-150); Anion Gap 7 mEq/L (7-15); Aspartate Amino Transferase* 16 U/L (12-35); Bilirubin Total* 0.5 mg/dL (0.1-1.5); Blood Urea Nitrogen* 24 mg/dL (7-30); Calcium* 8.4 mg/dL (8.4-10.6); Carbon Dioxide* 27 mmol/L (20-32); Est. Creatinine Clearance* 29.54; Estimated Glomerular Filt Rate 55 ml/min; Glucose* 108 mg/dL (60-115); Total Protein* 6.7 g/dL (6.0-8.3)
[2022-11-09 08:04] LABS: Magnesium* 2.1 mg/dL (1.5-2.6)
[2022-11-09 08:05] LABS: C Reactive Protein* 8.9 mg/dL (0.5-1.0); Procalcitonin* 0.21 ng/mL (<0.50); Troponin I* 0.06 ng/mL (0.01-0.04)
[2022-11-09 08:30] LABS: Phosphorus* 3.6 mg/dL (2.5-4.5)
[2022-11-09] MEDS: POTASSIUM CHLORIDE 10 MEQ CAPSULE ER 20 MEQ PO (08:31)
[2022-11-09] MEDS: CARBIDOPA-LEVODOPA 25-100 TABLET 1 TAB PO ×3 (08:32→21:25)
[2022-11-09] MEDS: METOPROLOL TARTRATE 25 MG TABLET PO ×2 (08:32→21:24)
[2022-11-09] MEDS: FLUOXETINE HCL 20 MG CAPSULE PO (08:32)
[2022-11-09] MEDS: CETIRIZINE HCL 10 MG TABLET PO (08:32)
[2022-11-09] MEDS: AMLODIPINE 5 MG TABLET PO (08:32)
[2022-11-09] MEDS: cephALEXin 500 MG CAPSULE PO ×2 (08:32→21:24)
[2022-11-09] MEDS: GABAPENTIN 100 MG CAPSULE PO ×3 (08:32→21:25)
[2022-11-09] MEDS: ACETAMINOPHEN 325 MG TABLET 650 MG PO ×4 (08:32→21:25)
[2022-11-09] MEDS: TRIAMCINOLONE ACETONIDE CREAM 0.1 % 1 APPLIC TOPICAL ×2 (08:33→21:14)
[2022-11-09] MEDS: LOSARTAN POTASSIUM 50 MG TABLET PO (08:33)
[2022-11-09] MEDS: FUROSEMIDE 40 MG TABLET 80 MG PO (10:14)
[2022-11-09] MEDS: SODIUM CHLORIDE 0.9 % (FLUSH) 10 ML SYRINGE 5 ML IVF ×2 (10:20→19:25)
--- NOTE | 2022-11-09 10:23 | PM.IMPN1 ---
Progress Note: A&P Assessment and plan (1) Acute on chronic diastolic heart failure: Problem details: -mild bump in her troponin noted at admission is resolving. ECG reviewed. No exertional or unstable angina. I will continue her on a daily aspirin, 81 mg. I will continue the metoprolol 25 mg b.i.d. (which was started 11/08 - replacing her daily atenolol). I did decrease her losartan to 50 mg. I kept her amlodipine at 5 mg. She was given another dose of 40 mg IV Lasix 11/08 after her chest x-ray. I will switch to 80 mg of p.o. Lasix with additional potassium starting 11/09 Status: Acute (2) Acute on chronic respiratory failure with hypoxia: Problem details: Multifactorial. May have an element of pulmonary contusion status post fall 11/06/2022. She is weaned down to 0.5 L a keep her sats at 93% Status: Acute (3) Fracture of rib: Problem details: Left 7th rib fracture, nondisplaced, status post fall 11/06/2022. Pain in association with the same. Status: Acute (4) UTI (urinary tract infection): Problem details: Acute on chronic urinary incontinence as her symptom. Ceftriaxone 1 g IV x1. Started Keflex 11/08 Status: Acute (5) Chronic atrial fibrillation: Problem details: -OAC and good rate control (atenolol discontinue, metoprolol 25 mg p.o. b.i.d. started ) Status: Chronic (6) Warfarin anticoagulation: Problem details: -afib -daily INR, within therapeutic range between 2 and 3 Status: Chronic (7) Chronic pain: Problem details: osteoarthritis, takes percocet nightly Status: Chronic (8) Opioid dependence: Status: Chronic (9) Lymphedema: Problem details: redress unna boots, use HELLEN wraps if unna boots unavailable - stop amlodipine Status: Chronic (10) Unstable gait: Problem details: Continue PT and OT, anticipate short term rehab at discharge Status: Acute (11) At risk for falls: Status: Acute (12) Physical deconditioning: Status: Chronic (13) Physical debility: Status: Chronic (14) Essential hypertension: Problem details: atenolol swapped for metoprolol cut losartan in half continue amlodipine Status: Chronic (15) Morbid obesity: Problem details: BMI 46.9 Status: Chronic (16) Parkinson disease: Problem details: mildly progressive Parkinson's disease- on sinemet last neurology in 05/22 (Pipe Scott MD ) Status: Chronic (17) Venous stasis ulcers of both lower extremities: Problem details: At home: Followed by Navdeep Peña MD. She does wear compression stockings. No rest pain or claudication. She does use lymphedema pumps daily, double layer compression wraps and leg elevation. plan is for sclerotherapy of superficial incompetent veins bilaterally (scheduled in July 2022) Status: Chronic Subjective Date Seen: 11/09/22 Interval history: Daily Progress Note - Hospital Medicine Day #: 3 CC: hypoxic resp failure, UTI, weakness OVERNIGHT UPDATES FROM STAFF & MED, LAB, IMAGING UPDATES : Pt rested well, oxycodone once for pain, vss on 0.5 lpm of oxygen, trialed room air and was 87-89%, encouraged tcdb/is. 147/66 Pulse 65 Respirations 20 Afebrile 93% on 0.5 L 114.5 kilos, 114.4 yesterday, 111 on admission. 107 kilos at previous admission. CBC is stable INR is 2.0 Venous blood gas is reassuring. Chemistries are totally normal Troponin is nicely down trending CRP is 8.9 MRSA negative Two urine cultures were ordered and processed. One was done on 11/06 and is growing Proteus mirabilis, 2nd is growing Gram-negative rods, presumably the same. No blood cultures are pending this admission f/u CXR 11/08 No signs of acute injury. No significant change in appearance of what may be chronic CHF without overt edema. Echo done in July: Normal LV size, mildly increased wall thickness. EF 60-65%. Normal estimated pulmonary pressures. No change from when her heart was last imaged on 09/19 Objective: MUCH BRIGHTER AND ALERT than yesterday. Vitals: see above Lungs: scattered rhonchi Cardiac: S1S2. Disposition/Potential discharge - Likely to return to previous living situation - maybe will need a short term rehab stay. suspect 11/11? Today I spent 50minutes seeing the patient, reviewing Expanse and EPIC notes/diagnostics, discussing the care plan with our care time that includes social work, PT/OT, pharmacy, RT, retirement and documenting my impressions and plan in the medical record. Exam Const: Vital Signs, click to edit/add: Vital Signs - 24 hr 11/08/22 11:00 11/08/22 15:00 11/08/22 15:00 Temperature 98.2 F Pulse Rate 59 L Pulse Rate [Pulse Oximeter] 69 69 Respiratory Rate 18 18 Blood Pressure [Ri ght Arm] 151/77 H Pulse Oximetry 95 Oxygen Delivery Me thod Nasal Cannula Oxygen Flow Rate 1 11/08/22 15:00 11/08/22 15:00 11/08/22 19:00 Temperature 98.1 F 98.4 F Pulse Rate Pulse Rate [Pulse Oximeter] 61 62 Respiratory Rate 18 18 18 Blood Pressure [Ri ght Arm] 130/86 139/67 Pulse Oximetry 91 91 96 Oxygen Delivery Me thod Nasal Cannula Nasal Cannula Nasal Cannula Oxygen Flow Rate 0.5 0.5 0.5 11/08/22 23:30 11/08/22 23:40 11/09/22 02:21 Temperature 98.2 F Pulse Rate 63 Pulse Rate [Pulse Oximeter] 61 Respiratory Rate 18 18 Blood Pressure [Ri ght Arm] 149/69 H Pulse Oximetry 96 90 Oxygen Delivery Me thod Nasal Cannula Oxygen Flow Rate 0.5 11/09/22 02:22 11/09/22 06:10 11/09/22 07:00 Temperature 97.9 F Pulse Rate 65 Pulse Rate [Pulse Oximeter] 61 69 Respiratory Rate 18 Blood Pressure [Ri ght Arm] 147/66 H Pulse Oximetry Oxygen Delivery Me thod Oxygen Flow Rate 11/09/22 07:00 Temperature Pulse Rate Pulse Rate [Pulse Oximeter] Respiratory Rate 20 Blood Pressure [Ri ght Arm] Pulse Oximetry 93 Oxygen Delivery Me thod Nasal Cannula Oxygen Flow Rate 0.5 Labs Labs: Laboratory Results - last 24 hr 11/09/22 05:47 WBC 6.48 RBC 3.77 L Hgb 11.2 L Hct 36.1 MCV 96 MCH 30 MCHC 31 L Plt Count 237 INR 2.00 H VBG pH 7.386 VBG pCO2 47 VBG pO2 31.4 VBG HCO3 28 Sodium 135 Potassium 4.0 Chloride 101 Carbon Dioxide 27 Anion Gap 7 BUN 24 Creatinine 1.0 Estimated Creat Clear 29.54 Estimated GFR 55 Glucose 108 Calcium 8.4 Phosphorus 3.6 Magnesium 2.1 Total Bilirubin 0.5 AST 16 ALT 6 Alkaline Phosphatase 79 Troponin I 0.06 H* C-Reactive Protein 8.9 H Total Protein 6.7 Albumin 3.2 L Procalcitonin 0.21
[2022-11-09] MEDS: ASPIRIN 81 MG TAB.CHEW PO (11:31)
--- NOTE | 2022-11-09 14:43 | PC.NURSE ---
End of shift note: Patient is alert and oriented, 0.5 L NC and sating at 93% encouraged to use areobika to cough up fluids. Patient c/0 pain in coccyx area- relieved w/ repositioning and 2.5 mg of oxy and tylenol x2 see eMAR for administration. Trop level elevated, but down from yesterday at 0.06. Generalized edema. Incontinent of urine, 1 wet brief, up to chair and commode, patient tolerated well. OT/PT encouraged patient to ambulate and she tolerated moving to chair. Patient stated she sleeps in a recliner at the care home and would be more comfortable in the chair. Venous stasis wounds LEs; open to air and elevated per MD, reddened area in left hip folds- creams applied. IV in right arm is SL. Tolerating a 2g sodium diet. Plan, continue with POC, meds for UTI and encouraging ambulation.
[2022-11-09] MEDS: WARFARIN 2 MG TABLET PO (17:11)
[2022-11-09] MEDS: MORPHINE 4 MG/ML INJ IVP (19:24)
[2022-11-09] MEDS: ENOXAPARIN 30 MG/0.3ML INJ SUBCUT (21:14)
--- NOTE | 2022-11-09 21:35 | PC.NURSE ---
Pt alert and oriented. Pt plesant and cooperative. Pt had pain ranging from 0-6 during shift; See EMAR for intervention. Pt assist of one with walker and gait belt from chair; Pt assist of two from/in bed. ?
--- NOTE | 2022-11-09 22:21 | PC.NURSE ---
Tried to titrate Pt off of 0.5 L. Pt's saturations were 87-89%; sometimes reaching 90% for short periods. 0.5 L kept on Pt.
[2022-11-10 03:00] VITALS: PULSE 62; RESP 16; O2SAT 92
[2022-11-10] MEDS: SODIUM CHLORIDE 0.9 % (FLUSH) 10 ML SYRINGE 5 ML IVF ×3 (04:44→21:23)
[2022-11-10] MEDS: MORPHINE 4 MG/ML INJ IVP ×2 (04:44→10:08)
--- NOTE | 2022-11-10 05:29 | PC.NURSE ---
[id number] Pt slept during night between cares. ambulating to BR/BSC with walker, GB, 1-2A, tolerating activity fair. IS and aerobika done, educated pt on pnx prevention and importance of deep breathing, pt acknowledged understanding. Pain increases to 6-7/10 with coughing, prn pain medication administered with relief.
[2022-11-10 06:07] LABS: Hematocrit 33.4 % (33.0-51.0); Hemoglobin* 10.5 gm/dL (12.0-16.0); Mean Corpuscular HGB Conc 31 gm/dL (32-36); Mean Corpuscular Hemoglobin 30 pg (26-34); Mean Corpuscular Volume 96 fL (80-100); Platelet Count* 252 K/uL (140-440); Red Blood Count 3.49 m/uL (4.00-5.20); White Blood Count* 5.66 K/uL (4.50-11.00)
[2022-11-10 06:10] LABS: HCO3 VBG 30 mmol/L (21-28); PCO2 VBG 53 mmHG (40-50); pH VBG 7.365 (7.32-7.43)
[2022-11-10 06:16] LABS: Slide Review Reflex No
[2022-11-10 06:18] LABS: INR 2.01 (0.91-1.10); Prothrombin Time 23.8 Seconds
[2022-11-10 06:41] LABS: Chloride* 102 mmol/L (96-114)
[2022-11-10 06:42] LABS: Albumin* 3.1 g/dL (3.3-5.0); Sodium* 136 mmol/L (135-149)
[2022-11-10 06:43] LABS: Chloride* 102 mmol/L (96-114); Sodium* 136 mmol/L (135-149)
[2022-11-10 06:45] LABS: Anion Gap 6 mEq/L (7-15); Blood Urea Nitrogen* 24 mg/dL (7-30); Carbon Dioxide* 28 mmol/L (20-32); Creatinine* 0.8 mg/dL (0.5-1.5); Creatinine* 0.9 mg/dL (0.5-1.5); Est. Creatinine Clearance* 29.54; Estimated Glomerular Filt Rate 63 ml/min; Estimated Glomerular Filt Rate 72 ml/min; Glucose* 96 mg/dL (60-115); Phosphorus* 3.4 mg/dL (2.5-4.5)
[2022-11-10 06:46] LABS: Calcium* 8.1 mg/dL (8.4-10.6)
[2022-11-10 07:00] VITALS: BP 148/77; PULSE 66; RESP 20; TEMP 36.6; O2SAT 97
[2022-11-10 07:41] LABS: Anion Gap 5 mEq/L (7-15); Blood Urea Nitrogen* 24 mg/dL (7-30); Calcium* 8.1 mg/dL (8.4-10.6); Carbon Dioxide* 29 mmol/L (20-32); Glucose* 95 mg/dL (60-115); Troponin I* 0.03 ng/mL (0.01-0.04)
[2022-11-10 08:09] LABS: NT Pro B Type NatriureticPept* 7560 pg/mL
[2022-11-10] MEDS: OXYCODONE 5 MG TABLET 2.5 MG PO (08:23)
[2022-11-10] MEDS: POTASSIUM CHLORIDE 10 MEQ CAPSULE ER 20 MEQ PO (08:23)
--- NOTE | 2022-11-10 09:24 | NUTR.NU ---
RDN with MD consult for 2 gram sodium diet education and nutrition screen for 2 gram sodium diet. Patient reports a good appetite and per engineering faculty, patient has been consuming 50-100% of most meals recorded since admission. On lasix with noted weight fluctuations per weight records. Patient comes from [facility]. Patient consumes 2 meals/day. Patient reports doing the cooking and grocery shopping prior to admission, but notes utilizing [employer]. Patient states that she does not have a stove and utilizes microwavable meals for supper. Discussed heart healthy options and what to look for and what to limit or avoid when it comes to microwaveable meals. Nutrition education provided on a low sodium diet related to congestive heart failure and HTN.?Patient declined verbal education for designated caregiver and will pass along the handouts provided. Verbal and written information provided. Recommend limiting sodium to 2,000 mg per day.? Discussed foods recommended and to avoid.? Handouts provided from [facility] on heart failure nutrition therapy, sodium content of foods, heart healthy label reading tips, sodium-free flavoring tips and heart healthy cooking and shopping tips.? Patient verbalized understanding.?RDN's contact information was provided and patient was encouraged to call with questions.?RDN will continue to follow PRN.
[2022-11-10] MEDS: ACETAMINOPHEN 325 MG TABLET 650 MG PO ×4 (09:56→21:22)
[2022-11-10] MEDS: AMLODIPINE 5 MG TABLET PO (09:57)
[2022-11-10] MEDS: ASPIRIN 81 MG TAB.CHEW PO (09:57)
[2022-11-10] MEDS: CETIRIZINE HCL 10 MG TABLET PO (09:58)
[2022-11-10] MEDS: cephALEXin 500 MG CAPSULE PO ×2 (09:58→21:22)
[2022-11-10] MEDS: FLUOXETINE HCL 20 MG CAPSULE PO (09:58)
[2022-11-10] MEDS: CARBIDOPA-LEVODOPA 25-100 TABLET 1 TAB PO ×3 (09:58→21:22)
[2022-11-10] MEDS: FUROSEMIDE 40 MG TABLET 80 MG PO (09:58)
[2022-11-10] MEDS: GABAPENTIN 100 MG CAPSULE PO ×3 (09:59→21:22)
[2022-11-10] MEDS: METOPROLOL TARTRATE 25 MG TABLET PO (09:59)
[2022-11-10] MEDS: LOSARTAN POTASSIUM 50 MG TABLET PO (09:59)
[2022-11-10] MEDS: TRIAMCINOLONE ACETONIDE CREAM 0.1 % 1 APPLIC TOPICAL ×2 (10:00→21:23)
[2022-11-10 11:00] VITALS: BP 155/77; PULSE 63; RESP 18; TEMP 36.8; O2SAT 95
--- NOTE | 2022-11-10 12:14 | PM.IMPN1 ---
Progress Note: A&P Assessment and plan (1) Fracture of rib: Problem details: - Left 7th rib fracture, nondisplaced, status post fall 11/06/2022 - mobility limited by pain, working with therapies Status: Acute (2) UTI (urinary tract infection): Problem details: - + Proteus culture. Acute on chronic urinary incontinence as her symptom. Ceftriaxone 1 g IV x1. Started Keflex 11/08 Status: Acute (3) Acute on chronic respiratory failure with hypoxia: Problem details: - Multifactorial. May have an element of pulmonary contusion status post fall 11/06/2022. She is weaned down to 0.5L NC to keep sats at 93% - Continue IS Status: Acute (4) Acute on chronic diastolic heart failure: Problem details: - mild bump in her troponin noted at admission, resolved, no acute findings on EKG - No exertional or unstable angina - continue daily ASA, BB (transitioned from atenolol to metoprolol on 11/08), ARB (Losartan), Lasix + potassium Status: Acute (5) Parkinson disease: Problem details: - mildly progressive Parkinson's disease- on sinemet - last neurology in 05/22 (Pipe Scott MD ) Status: Chronic (6) Chronic atrial fibrillation: Problem details: - Warfarin, rate controlled on Metoprolol (initiated 11/08/22) Status: Chronic (7) Essential hypertension: Problem details: - age-appropriate control on current regimen (Metoprolol 25mg BID and Losartan 50mg Qd) Status: Chronic (8) Warfarin anticoagulation: Problem details: -afib -daily INR, within therapeutic range between 2 and 3 Status: Chronic (9) Chronic pain: Problem details: - osteoarthritis, takes percocet nightly Status: Chronic (10) Lymphedema: Problem details: - redress unna boots, use HELLEN wraps if unna boots unavailable - stop amlodipine 11/09 for chronic edema Status: Chronic (11) Unstable gait: Problem details: - Continue PT and OT, anticipate short term rehab at discharge Status: Acute (12) Venous stasis ulcers of both lower extremities: Problem details: At home: Followed by Navdeep Peña MD. She does wear compression stockings. No rest pain or claudication. She does use lymphedema pumps daily, double layer compression wraps and leg elevation. plan is for sclerotherapy of superficial incompetent veins bilaterally (scheduled in July 2022) Status: Chronic Plan - per above: Continue to wean supplemental oxygen, continue therapies - likely SNF discharge when medically appropriate Subjective Date Seen: 11/10/22 Interval history: Carmel was admitted to the hospital on 11/07 after a fall at home and a subsequent 7th rib fracture. She has also been found to have a Proteus UTI, on Keflex for this. She continues to have discomfort with ambulation and is being followed by therapies, at this time TCU stay is recommended. Labs continue to improve, and she continues to taper off of supplemental oxygen; chest x-rays have been stable/improved. Carmel has no concerns for the hospitalist team, but notes that she is not particularly interested in a TCU stay. Exam Narrative: Exam Narrative: GEN: Alert and oriented, sitting in bedside chair and answering questions appropriately HEENT: EOMIs bilaterally, no scleral icterus CV: RRR, No concerning murmurs, rubs, or gallops R: Decreased bilateral bases, L>R, no wheezing Ext: wwp, no clubbing Skin: Thickened violaceous plaques on bilateral lower extremities with symmetric 1+ edema Neuro: Tremor of right upper extremity noted, tremor of tongue noted Psych: Appropriate Const: Vital Signs, click to edit/add: Vital Signs - 24 hr 11/09/22 15:00 11/09/22 15:10 11/09/22 19:17 Temperature 97.7 F 97.3 F L Pulse Rate [Pulse Oximeter] 62 77 Respiratory Rate 18 18 18 Blood Pressure [Le ft Arm] Blood Pressure [Ri ght Arm] 141/87 H 143/85 H Pulse Oximetry 94 94 91 Oxygen Delivery Me thod Nasal Cannula Nasal Cannula Nasal Cannula Oxygen Flow Rate 0.5 0.5 0.5 11/09/22 23:00 11/09/22 23:00 11/09/22 23:00 Temperature 98.0 F Pulse Rate [Pulse Oximeter] 65 65 Respiratory Rate 16 18 16 Blood Pressure [Le ft Arm] 150/90 H Blood Pressure [Ri ght Arm] Pulse Oximetry 94 94 Oxygen Delivery Me thod Nasal Cannula Nasal Cannula Oxygen Flow Rate 0.5 0.5 11/10/22 03:00 11/10/22 07:00 11/10/22 07:00 Temperature Pulse Rate [Pulse Oximeter] 62 66 Respiratory Rate 16 20 20 Blood Pressure [Le ft Arm] Blood Pressure [Ri ght Arm] Pulse Oximetry 92 97 Oxygen Delivery Me thod Nasal Cannula Room Air Oxygen Flow Rate 0.5 11/10/22 07:00 Temperature 97.9 F Pulse Rate [Pulse Oximeter] 66 Respiratory Rate 20 Blood Pressure [Le ft Arm] Blood Pressure [Ri ght Arm] 148/77 H Pulse Oximetry 97 Oxygen Delivery Me thod Nasal Cannula Oxygen Flow Rate 0.5 Labs Labs: Laboratory Results - last 24 hr 11/10/22 11/10/22 11/10/22 05:32 05:32 05:32 WBC 5.66 RBC 3.49 L Hgb 10.5 L Hct 33.4 MCV 96 MCH 30 MCHC 31 L Plt Count 252 INR 2.01 H VBG pH 7.365 VBG pCO2 53 H VBG pO2 35.0 VBG HCO3 30 H Sodium 136 136 Potassium 4.0 4.0 Chloride 102 Carbon Dioxide Anion Gap BUN Creatinine Estimated Creat Clear Estimated GFR Glucose Calcium Phosphorus Troponin I C-Reactive Protein NT-Pro-B Natriuret Pep Albumin 11/10/22 11/10/22 11/10/22 05:32 05:32 05:32 WBC RBC Hgb Hct MCV MCH MCHC Plt Count INR VBG pH VBG pCO2 VBG pO2 VBG HCO3 Sodium Potassium Chloride 102 Carbon Dioxide 29 28 Anion Gap 5 L 6 L BUN 24 Creatinine Estimated Creat Clear Estimated GFR Glucose Calcium Phosphorus Troponin I C-Reactive Protein NT-Pro-B Natriuret Pep Albumin 11/10/22 11/10/22 11/10/22 05:32 05:32 05:32 WBC RBC Hgb Hct MCV MCH MCHC Plt Count INR VBG pH VBG pCO2 VBG pO2 VBG HCO3 Sodium Potassium Chloride Carbon Dioxide Anion Gap BUN 24 Creatinine 0.8 0.9 Estimated Creat Clear 29.54 29.54 Estimated GFR 72 Glucose Calcium Phosphorus Troponin I C-Reactive Protein NT-Pro-B Natriuret Pep Albumin 11/10/22 11/10/22 11/10/22 05:32 05:32 05:32 WBC RBC Hgb Hct MCV MCH MCHC Plt Count INR VBG pH VBG pCO2 VBG pO2 VBG HCO3 Sodium Potassium Chloride Carbon Dioxide Anion Gap BUN Creatinine Estimated Creat Clear Estimated GFR 63 Glucose 95 96 Calcium 8.1 L 8.1 L Phosphorus 3.4 Troponin I 0.03 C-Reactive Protein 7.0 H NT-Pro-B Natriuret Pep 7560 Albumin 3.1 L
--- NOTE | 2022-11-10 13:58 | PC.SOCIAL ---
Addendum entered by CR Grove 11/10/22 14:31: Phone call to Nikole (nurse) at [facility]. Nikole will come to [facility] tomorrow at 8:00 am to assess pt. Provided update that SNF was recommended. Nikole will talk with pt. Nikole states that if pt does not go to SNF then she would need to move to higher level of care at [facility], which pt likely will not want to do. Informed nurse that [facility] is assessing for ST rehab. Provided update to charge nurse. Original Note: Discharge planning- Met with pt in room to discuss discharge plans. Pt is hoping to return to [facility]. Discussed therapy recommendation of short-term rehab. Pt states she is hopeful that she can return. Received update from therapy informing that pt needs rehab stay. Phone call to Laly Thomason at [facility]. Laly is aware that pt is in hospital and may need SNF. Laly requests that this worker fax referral packet. Faxed referral to [facility] at [phone]. Social work will follow up as needed.
[2022-11-10 15:00] VITALS: BP 139/53; PULSE 63; PULSE 70; RESP 18; RESP 20; TEMP 36.7; O2SAT 90
[2022-11-10] MEDS: OXYCODONE 5 MG TABLET PO (16:26)
[2022-11-10] MEDS: WARFARIN 2 MG TABLET PO (17:23)
[2022-11-10 19:00] VITALS: BP 123/60; PULSE 58; RESP 20; TEMP 36.5; O2SAT 96
--- NOTE | 2022-11-10 19:51 | PC.NURSE ---
Nursing Care Hours: [id number] Pt this shift alert and oriented, calm and cooperative. Up to bathroom and recliner with 1 assist to stand by using walker and gait belt. Pain decreased from 7/10 to 4/10 left rib, see eMAR. LS clear but diminished, shallow breaths. Requiring 0.5L NC to maintain above 88%. During dinner, while awake, was able to stay on room air. Occasionally spO2 would drop and the alarm reminded pt to take deep breaths and would recover quickly. During rest, pt unable to hear alarm and NC placed. IS use, hitting 1000.
[2022-11-10] MEDS: ENOXAPARIN 30 MG/0.3ML INJ SUBCUT (21:23)
[2022-11-10 23:00] VITALS: BP 128/66; PULSE 51; RESP 20; TEMP 36.4; O2SAT 95
[2022-11-11] MEDS: OXYCODONE 5 MG TABLET PO ×2 (02:39→08:48)
[2022-11-11 03:00] VITALS: BP 123/88; PULSE 55; RESP 20; TEMP 36.6; O2SAT 96
--- NOTE | 2022-11-11 06:25 | PC.NURSE ---
Shift note: Pt has been on 0.5L of oxygen during sleep but has been able to maintain O2>90 in room air when awake. Complained of pain level of 4 and requested Oxycodone. 2.5mg given and was effective. Ambulate with A1, walker and Gb.
[2022-11-11 06:51] LABS: Hematocrit 36.1 % (33.0-51.0); Hemoglobin* 11.2 gm/dL (12.0-16.0); Mean Corpuscular HGB Conc 31 gm/dL (32-36); Mean Corpuscular Hemoglobin 30 pg (26-34); Mean Corpuscular Volume 96 fL (80-100); Platelet Count* 293 K/uL (140-440); Red Blood Count 3.75 m/uL (4.00-5.20); White Blood Count* 6.62 K/uL (4.50-11.00)
[2022-11-11 06:52] LABS: Slide Review Reflex No
[2022-11-11 07:00] VITALS: BP 134/78; PULSE 73; RESP 21; TEMP 36.8; O2SAT 90
--- NOTE | 2022-11-11 07:00 | CRLHL7_ITS ---
For Patients: As a result of the Cures Act, medical imaging exams and procedure reports are released immediately into your electronic medical record. You may view this report before your referring provider. If you have questions, please contact your health care provider. INDICATION: follow up hypoxia TECHNIQUE: Chest 1 view COMPARISON: 11/08/2022 FINDINGS: Chronic vascular congestion. Increased mild retrocardiac density. No pneumothorax. No pleural effusion. Degenerative changes at both shoulders. IMPRESSION: Left basilar atelectasis or infiltrate. Dictated by Jose Miguel Stoll MD @ 11/11/2022 9:51:05 AM (Electronically Signed)
[2022-11-11 07:02] LABS: Albumin* 3.5 g/dL (3.3-5.0); Chloride* 101 mmol/L (96-114); Potassium* 3.5 mmol/L (3.6-5.1); Sodium* 139 mmol/L (135-149)
[2022-11-11 07:05] LABS: Anion Gap 7 mEq/L (7-15); Blood Urea Nitrogen* 22 mg/dL (7-30); Carbon Dioxide* 31 mmol/L (20-32); Creatinine* 0.9 mg/dL (0.5-1.5); Est. Creatinine Clearance* 29.54; Estimated Glomerular Filt Rate 63 ml/min
[2022-11-11 07:06] LABS: Calcium* 8.4 mg/dL (8.4-10.6); Glucose* 88 mg/dL (60-115); Phosphorus* 3.2 mg/dL (2.5-4.5)
[2022-11-11 07:07] LABS: INR 1.81 (0.91-1.10); Prothrombin Time 21.9 Seconds
[2022-11-11] MEDS: POTASSIUM CHLORIDE 10 MEQ CAPSULE ER 20 MEQ PO (08:44)
[2022-11-11] MEDS: ACETAMINOPHEN 325 MG TABLET 650 MG PO (08:44)
[2022-11-11] MEDS: CETIRIZINE HCL 10 MG TABLET PO (08:45)
[2022-11-11] MEDS: cephALEXin 500 MG CAPSULE PO (08:45)
[2022-11-11] MEDS: ASPIRIN 81 MG TAB.CHEW PO (08:45)
[2022-11-11] MEDS: CARBIDOPA-LEVODOPA 25-100 TABLET 1 TAB PO (08:45)
[2022-11-11] MEDS: FLUOXETINE HCL 20 MG CAPSULE PO (08:45)
[2022-11-11] MEDS: GABAPENTIN 100 MG CAPSULE PO (08:45)
[2022-11-11] MEDS: FUROSEMIDE 40 MG TABLET 80 MG PO (08:45)
[2022-11-11] MEDS: LOSARTAN POTASSIUM 50 MG TABLET PO (08:46)
[2022-11-11] MEDS: METOPROLOL TARTRATE 25 MG TABLET PO (08:46)
[2022-11-11] MEDS: SODIUM CHLORIDE 0.9 % (FLUSH) 10 ML SYRINGE 5 ML IVF (08:46)
[2022-11-11] MEDS: TRIAMCINOLONE ACETONIDE CREAM 0.1 % 1 APPLIC TOPICAL (08:46)
--- NOTE | 2022-11-11 09:53 | PC.SOCIAL ---
Addendum entered by CR Grove 11/11/22 10:06: Completed preadmission screening for pt to admit to [facility] today. Confirmation #[id number]. Original Note: Discharge planning- Received a phone call from [facility] from Laly Thomason informing that they can take pt for admission today. Facility van will pick pt up at 11:00 am and will bring pt's wheelchair for transport. Nurse (Nikole) from [facility] did speak with pt and pt was agreeable to go to SNF. Provided information to charge nurse. Phone call to pt's nephew (Michi) and provided update on pt's discharge to [facility]. Social work will follow up as needed.
--- NOTE | 2022-11-11 10:21 | PM.DS1 ---
DS: Providers Provider Date Seen: 11/11/22 Date of admission: 11/07/22 21:01 Primary care physician: Sofia Guerrero MD Admitting Clinician: Mello Luna MD Consults: OT, PT, Nutrition, RT Attending Physician on discharge: Deepali Martinez MD Date of Discharge: 11/11/22 DS: Diagnosis Discharge Diagnosis (1) Fracture of rib: Status: Acute Problem details: - Left 7th rib fracture, nondisplaced, status post fall 11/06/2022 - mobility limited by pain, working with therapies (2) UTI (urinary tract infection): Status: Acute Problem details: - + Proteus culture. Acute on chronic urinary incontinence as her symptom. Ceftriaxone 1 g IV x1. Started Keflex 11/08 (3) Acute on chronic respiratory failure with hypoxia: Status: Acute Problem details: - Multifactorial. May have an element of pulmonary contusion status post fall 11/06/2022. 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 - last neurology in 05/22 (Pipe Scott MD ) (6) Chronic atrial fibrillation: Status: Chronic Problem details: - Warfarin, rate controlled on Metoprolol (initiated 11/08/22) (7) Essential hypertension: Status: Chronic Problem details: - age-appropriate control on current regimen (Metoprolol 25mg BID and Losartan 50mg Qd) (8) Warfarin anticoagulation: Status: Chronic Problem details: -afib -daily INR, within therapeutic range between 2 and 3 (9) Chronic pain: Status: Chronic Problem details: - osteoarthritis, takes percocet nightly (10) Lymphedema: Status: Chronic Problem details: - redress unna boots, use HELLEN wraps if unna boots unavailable - stop amlodipine 11/09 for chronic edema (11) Unstable gait: Status: Acute Problem details: - Continue PT and OT, anticipate short term rehab at discharge (12) Venous stasis ulcers of both lower extremities: Status: Chronic Problem details: At home: Followed by Navdeep Peña MD. She does wear compression stockings. No rest pain or claudication. She does use lymphedema pumps daily, double layer compression wraps and leg elevation. plan is for sclerotherapy of superficial incompetent veins bilaterally (scheduled in July 2022) DS: Summary Hospital Course Hospital Course: Carmel a pleasant 87-year-old female, who presented to the hospital on 11/07 after having 2 mechanical falls at home during the week. She was found have a left rib fracture and acute hypoxic respiratory failure. She was admitted for therapies, pain control, and supplemental oxygen. CXR revealed atelectasis without acute infectious process, supplemental oxygen and IS utilized during stay. Patient followed by therapies and SNF stay recommended. A patient was medically appropriate for discharge to SNF on 11/11. See comorbidities and details above. Medication changes during stay: - amlodipine discontinued - metoprolol initiated at 25mg BID - losartan decreased from 100 --> 50mg - Torsemide transition to Lasix, potassium supplementation also ordered Status at Discharge Overall status at discharge: patient is progressing back to baseline Time Spent with Patient Time attestation: Total time spent providing and/or coordinating discharge services: Time spent: Greater than 30 minutes Specific discharge activities: Medication management, medication reconciliation, patient Education, care coordination Exam Narrative: Exam Narrative: GEN: Alert and oriented, sitting comfortably in bedside chair HEENT: EOMIs bilaterally, no scleral icterus, wearing supplemental oxygen CV: RRR, No concerning murmurs, rubs, or gallops R: Decreased bilateral bases, L>R, no wheezing, discomfort with deep breaths, no chest wall crepitus Ext: wwp, no clubbing Skin: 1-2 + symmetric edema of BLE with thickened violaceous plaques noted Neuro: Resting tremor of right upper extremity Psych: Appropriate Const: Vital Signs, click to edit/add: Vital Signs - 24 hr 11/10/22 11:00 11/10/22 15:00 11/10/22 15:00 Temperature 98.3 F Pulse Rate [Pulse Oximeter] 63 63 Respiratory Rate 18 18 20 Blood Pressure [Le ft Arm] 155/77 H Pulse Oximetry 95 90 Oxygen Delivery Me thod Nasal Cannula Room Air Oxygen Flow Rate 0.5 11/10/22 15:00 11/10/22 19:00 11/10/22 23:00 Temperature 98.1 F 97.7 F Pulse Rate [Pulse Oximeter] 70 58 L 51 L Respiratory Rate 20 20 20 Blood Pressure [Le ft Arm] 139/53 L 123/60 Pulse Oximetry 90 96 Oxygen Delivery Me thod Room Air Nasal Cannula Oxygen Flow Rate 0.5 11/10/22 23:00 11/10/22 23:00 11/11/22 03:00 Temperature 97.5 F L 97.8 F Pulse Rate [Pulse Oximeter] 51 L 55 L Respiratory Rate 20 20 20 Blood Pressure [Le ft Arm] 128/66 123/88 Pulse Oximetry 95 95 96 Oxygen Delivery Me thod Nasal Cannula Nasal Cannula Nasal Cannula Oxygen Flow Rate 0.5 0.5 0.5 DS: Data Data Completed and Pending Labs on day of discharge: Labs from last 24 hours 11/11/22 05:55 WBC 6.62 RBC 3.75 L Hgb 11.2 L Hct 36.1 MCV 96 MCH 30 MCHC 31 L Plt Count 293 INR 1.81 H Sodium 139 Potassium 3.5 L Chloride 101 Carbon Dioxide 31 Anion Gap 7 BUN 22 Creatinine 0.9 Estimated Creat Clear 29.54 Estimated GFR 63 Glucose 88 Calcium 8.4 Phosphorus 3.2 Albumin 3.5 Discharge Plan Discharge Disposition: [facility] Date of Admission: 11/07/22 21:01 Attending Provider on Discharge: Deepali Martinez Primary Care Provider: Sofia Guerrero Condition: Stable Anticipated Discharge Date/Time: 11/11/22 13:00 Discharge Medications: New losartan 50 mg Tablet 50 mg PO DAILY Qty: 30 0RF furosemide 40 mg Tablet 80 mg PO QAM Qty: 60 0RF potassium chloride 10 mEq Capsule, Extended Release 20 meq PO DAILYWM Qty: 60 0RF sennosides-docusate sodium [Stool Softener-Laxative] 8.6-50 mg Tablet 1 tab PO DAILY PRNQty: 30 0RF cephalexin 500 mg Capsule 500 mg PO BID 5 Days Qty: 10 0RF oxycodone 5 mg Tablet 2.5 - 5 mg PO Q4H PRNQty: 20 0RF metoprolol tartrate 25 mg Tablet 25 mg PO BID Qty: 60 0RF acetaminophen 325 mg Tablet 975 mg PO TID Qty: 60 0RF Continued warfarin 5 mg tablet 2 mg PO .UD Rx Instructions: Take 2mg Mon, Thu, Thu, Thu carbidopa-levodopa 25-100 mg tablet 1 tab PO TID gabapentin 100 mg capsule 100 mg PO TID nystatin 100,000 unit/gram powder 1 applic topical BID PRN Rx Instructions: topically to pannus and breasts BID PRN. cetirizine [24Hour Allergy] 10 mg tablet 10 mg PO DAILY fluoxetine 20 mg capsule 20 mg PO DAILY Discontinued losartan 100 mg tablet 100 mg PO DAILY oxycodone-acetaminophen [Percocet] 5-325 mg tablet 1 tab PO HS PRN (Reason: pain) acetaminophen 325 mg tablet 650 mg PO BID torsemide 20 mg tablet 20 mg PO 3XW Discharge Orders: Discharge Order (Routine); Ordered 11/11/22 Ordered By: Deepali Martinez Additional Instructions: Schedule Tylenol for pain relief, prn Oxycodone in between doses for severe pain. Activity Level: Activity as Tolerated Activity Detail: per therapies Discharge Diet: Regular Follow Up Appointments: Sofia Guerrero MD [Primary Care Provider] - Admit to: SNF Length of Stay: 30-90 days Can use facility standing orders?: Yes Code Status: DNR/DNI Rehab Potential: Fair Therapy: Physical Therapy and Occupational Therapy Therapy Orders: Evaluate and Treat Oxygen: Yes Oxygen Delivery Method: Nasal Cannula Oxygen Flow Rate: 0.5L Urinary Catheter: No Next INR: , 11/13, then Thursday, 11/17 INR Goal: 2.0-3.0 Lab Orders: BMP 11/17 Orders are good >30 days: Yes Signature: Deepali Martinez MD
[2022-11-11 11:00] VITALS: BP 128/61; PULSE 61; RESP 24; TEMP 36.9; O2SAT 90
--- NOTE | 2022-11-11 15:25 | PC.NURSE ---
Nursing Care Hours: [id number] Pt this shift was alert and oriented, calm and cooperative. Pain left rib 4/10 with oral meds, see eMAR. Difficulty coughing and removing secretions, encouraged to splint. Productive cough, pt swallowed so unable to observe color and consistency. VSS. Ambulated to bathroom using walker and gait belt. Stable on room air, spO2 90%, up to 93% with deep breaths. IV removed for discharge. Instructions provided. Wheeled out to vehicle for SNF in stable condition.
--- NOTE | 2022-11-11 16:28 | PC.NURSE ---
[facility] nurse called to clarify Coumadin order for patient. Spoke with Lauryn pharmacist and Dr. Luna and discharge orders for Coumadin should be Coumadin 2mg tablets - Take 2mg Sun, Mon, Wed, and Fri po and take 3mg opposite days. Staff at [facility] understand this change in order.
== END 2022-11-11 11:15 | DRG 189 ==
LOC: ED 20:09 → MEDSURG 20:40
PROVIDERS: Family Medicine; Admitting Provider Internal Medicine; Emergency Provider Family Medicine; PCP Family Medicine; Visit Provider Internal Medicine
DX: J96.21 Acute and chronic respiratory failure with hypoxia (principal); I50.43 Acute on chronic combined systolic (congestive) and diastolic (congestive) heart failure; S22.32XA Fracture of one rib, left side, initial encounter for closed fracture; N39.0 Urinary tract infection, site not specified; S27.321A Contusion of lung, unilateral, initial encounter; F11.20 Opioid dependence, uncomplicated; I48.20 Chronic atrial fibrillation, unspecified; Z68.42 Body mass index [BMI] 45.0-49.9, adult; I11.0 Hypertensive heart disease with heart failure; R32 Unspecified urinary incontinence; B96.4 Proteus (mirabilis) (morganii) as the cause of diseases classified elsewhere; W01.198A Fall on same level from slipping, tripping and stumbling with subsequent striking against other object, initial encounter; I87.2 Venous insufficiency (chronic) (peripheral); R26.81 Unsteadiness on feet; I89.0 Lymphedema, not elsewhere classified; G89.29 Other chronic pain; Z79.01 Long term (current) use of anticoagulants; E66.01 Morbid (severe) obesity due to excess calories; G20 Parkinson's disease; I83.015 Varicose veins of right lower extremity with ulcer other part of foot; I83.025 Varicose veins of left lower extremity with ulcer other part of foot; L97.519 Non-pressure chronic ulcer of other part of right foot with unspecified severity; L97.529 Non-pressure chronic ulcer of other part of left foot with unspecified severity; F32.A Depression, unspecified
CPT/HCPCS: 36415; 71045; 71046; 74177; 80048; 80053; 80069; 80076; 81001; 81003; 81015; 82565; 82803; 83735; 83880; 84100; 84145; 84484; 85018; 85025; 85027; 85610; 86140; 87081; 87086; 87186; 87631; 93005; 94664; 94761; 97110; 97116; 97161; 97166; 97530; 97535; 99284; A9270; J0696; J1650; J1885; J1940; J2270; J7030; Q9967

== ENCOUNTER 2022-12-16 12:22 | Outpatient (REF) | payer MEDICARE, BC, SELFPAY ==
[2022-12-16 13:22] LABS: Chloride* 104 mmol/L (96-114); Potassium* 4.3 mmol/L (3.6-5.1); Sodium* 135 mmol/L (135-149)
[2022-12-16 13:24] LABS: Hemoglobin A1C* 5.56 % (0-5.6)
[2022-12-16 13:25] LABS: Anion Gap 11 mEq/L (7-15); Blood Urea Nitrogen* 24 mg/dL (7-30); Carbon Dioxide* 20 mmol/L (20-32); Creatinine* 0.9 mg/dL (0.5-1.5); Estimated Glomerular Filt Rate 63 ml/min
[2022-12-16 13:26] LABS: Calcium* 8.5 mg/dL (8.4-10.6); Glucose* 123 mg/dL (60-115)
== END 2022-12-16 12:23 | disposition home or self-care (01) ==
LOC: NPINS 12:22
PROVIDERS: PCP Family Medicine; Visit Provider Nurse Practitioner Gerontology
DX: R63.1 Polydipsia (principal); Z13.1 Encounter for screening for diabetes mellitus; I11.0 Hypertensive heart disease with heart failure; I50.32 Chronic diastolic (congestive) heart failure
CPT/HCPCS: 80048; 83036; 85610

== ENCOUNTER 2023-01-09 11:46 | Outpatient (CLI) | payer MEDICARE, BC, SELFPAY | END 2023-01-09 11:47 | disposition home or self-care (01) | LOC: AMB 01-12 10:49 | PROVIDERS: Visit Provider Family Medicine | DX: S89.91XA Unspecified injury of right lower leg, initial encounter (principal); W18.30XA Fall on same level, unspecified, initial encounter; Y92.099 Unspecified place in other non-institutional residence as the place of occurrence of the external cause | CPT/HCPCS: A0425; A0427; A0428 ==

== ENCOUNTER 2023-01-09 12:04 | Emergency (ER) | payer MEDICARE, BC, SELFPAY ==
[2023-01-09] VITALS (29 sets, daily range): BP systolic 91–183; BP diastolic 50–94; PULSE 68–84; RESP 16; TEMP 36.9; O2SAT 88–95
--- NOTE | 2023-01-09 12:31 | CRLHL7_ITS ---
For Patients: As a result of the Century Cures Act, medical imaging exams and procedure reports are released immediately into your electronic medical record. You may view this report before your referring provider. If you have questions, please contact your health care provider. INDICATION: Weakness. TECHNIQUE: Two views COMPARISON: 11/08/2022. FINDINGS: Patient positioning: The patient is slightly rotated leftward on the frontal view. Adequate inspiration. The right lateral costophrenic angle is excluded from the [id number] on the frontal view of the chest. Heart and mediastinum: Stable, within normal limits for AP technique. Lungs and pleural spaces: No focal pulmonary infiltrate, atelectasis or significant pleural effusion. Bones and soft tissues: No acute findings. IMPRESSION: No acute findings. Dictated by Gerber Carter MD @ 01/09/2023 2:35:03 PM (Electronically Signed)
--- NOTE | 2023-01-09 12:34 | CRLHL7_ITS ---
For Patients: As a result of the Cures Act, medical imaging exams and procedure reports are released immediately into your electronic medical record. You may view this report before your referring provider. If you have questions, please contact your health care provider. INDICATION: Fall. TECHNIQUE: Three views. COMPARISON: 11/15/2019 FINDINGS: Bones: Superior subluxation of the humeral head, new in the interval since 11/15/2019, may represent indirect evidence of a rotator cuff tear which otherwise cannot be evaluated on this imaging modality (unlike MRI). Mild glenohumeral osteoarthrosis. No fracture or dislocation. Soft tissues: No significant incidental findings. IMPRESSION: No acute findings. Superior subluxation of the humeral head, new in the interval since 11/15/2019, may represent indirect evidence of a rotator cuff tear which otherwise cannot be evaluated on this imaging modality (unlike MRI). Mild glenohumeral osteoarthrosis Dictated by Gerber Carter MD @ 01/09/2023 2:37:20 PM (Electronically Signed)
--- NOTE | 2023-01-09 12:34 | CRLHL7_ITS ---
For Patients: As a result of the Cures Act, medical imaging exams and procedure reports are released immediately into your electronic medical record. You may view this report before your referring provider. If you have questions, please contact your health care provider. INDICATION: Fall. TECHNIQUE: Four views. COMPARISON: 08/21/2009 FINDINGS: Bones: Intact right knee arthroplasty. No fracture or dislocation. Soft tissues: No significant joint effusion. IMPRESSION: No acute findings. Dictated by Gerber Carter MD @ 01/09/2023 2:38:44 PM (Electronically Signed)
--- NOTE | 2023-01-09 12:39 | ED_ITS ---
HPI - General Adult General Date Seen: 01/09/23 Chief complaint: Weakness Stated complaint: Fall with shoulder pain Time Seen by Provider: 01/09/23 12:06 Source: patient Mode of arrival: EMS Limitations: no limitations History of Present Illness HPI narrative: Patient is an 87-year-old female with history of AFib on warfarin, recent Parkinson's diagnosis, hypertension, CHF presenting to the emergency department for weakness go blood, normal rate BP. Patient states uses assistive the V2 with she was walking with her walker and she will be. She felt improved he has had both under and she fell to her knees. She hurt her right knee and right shoulder. She is unable to ambulate after his fall with the above is cold. States she has been feeling weak since yesterday. She has also been having a cough since yesterday. She is not aware of any sick contacts. She does states she was diagnosed with Parkinson's been having of this year. He is currently treated for with carbidopa/levodopa. States she otherwise feels fine right now. Pop says she is adamant she did not hit her head when she fell in states she just fell to her knees. She denies any associated lightheadedness or dizziness. Denies chest pain, shortness of breath, lightheadedness dizziness, numbness, vision changes, headache, abdominal pain. Related Data Home Medications Medication Instructions Recorded Confirmed warfarin 5 mg tablet 2 mg PO .UD 12/26/21 11/07/22 carbidopa 25 mg-levodopa 100 mg 1 tab PO TID 08/07/22 11/08/22 tablet gabapentin 100 mg capsule 100 mg PO TID 08/08/22 11/07/22 cetirizine 10 mg tablet (24Hour 10 mg PO DAILY 11/07/22 11/07/22 Allergy) nystatin 100,000 unit/gram topical 1 applic topical BID PRN 11/07/22 11/07/22 powder fluoxetine 20 mg capsule 20 mg PO DAILY 11/08/22 11/08/22 Previous Rx's Medication Instructions Recorded acetaminophen 325 mg tablet 975 mg (3 x 325 mg) PO TID #60 tabs 11/11/22 cephalexin 500 mg capsule 500 mg PO BID 5 days #10 caps 11/11/22 furosemide 40 mg tablet 80 mg (2 x 40 mg) PO QAM #60 tabs 11/11/22 losartan 50 mg tablet 50 mg PO DAILY #30 tabs 11/11/22 metoprolol tartrate 25 mg tablet 25 mg PO BID #60 tabs 11/11/22 oxycodone 5 mg tablet 2.5 - 5 mg (0.5 - 1 x 5 mg) PO Q4H 11/11/22 PRN #20 tabs potassium chloride 10 mEq 20 meq (2 x 10 mEq) PO DAILYWM #60 11/11/22 capsule,extended release caps sennosides 8.6 mg-docusate sodium 1 tab PO DAILY PRN #30 tabs 11/11/22 50 mg tablet (Stool Softener-Laxative) cephalexin 250 mg capsule 250 mg PO QID #20 caps 01/09/23 Allergies Allergy/AdvReac Type Severity Reaction Status Date / Time hydrochlorothiazide Allergy Verified 11/07/22 14:31 Sulfa (Sulfonamide Allergy Rash Verified 11/07/22 14:31 Antibiotics) Review of Systems Status of ROS: Reports: 10 or more systems reviewed and unremarkable except as noted in History and below [facility] Medical History Respiratory failure ?J96.90 - Respiratory failure, unspecified, unspecified whether with hypoxia or hypercapnia (ICD-10) Fracture of rib ?S22.39XA - Fracture of one rib, unspecified side, initial encounter for closed fracture (ICD-10) Physical debility ?R53.81 - Other malaise (ICD-10) Physical deconditioning ?R53.81 - Other malaise (ICD-10) At risk for falls ?Z91.81 - History of falling (ICD-10) Unstable gait ?R26.81 - Unsteadiness on feet (ICD-10) Lymphedema ?I89.0 - Lymphedema, not elsewhere classified (ICD-10) Opioid dependence ?F11.20 - Opioid dependence, uncomplicated (ICD-10) Chronic pain ?G89.29 - Other chronic pain (ICD-10) Warfarin anticoagulation ?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.01 - 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 (ICD-10) Chronic atrial fibrillation ?I48.20 - Chronic atrial fibrillation, unspecified (ICD-10) Depression ?F32.A - Depression, unspecified (ICD-10) Essential hypertension ?I10 - Essential (primary) hypertension (ICD-10) Generalized OA ?M15.9 - Polyosteoarthritis, unspecified (ICD-10) Cellulitis of left lower leg ?L03.116 - Cellulitis of left lower limb (ICD-10) Morbid obesity ?E66.01 - Morbid (severe) obesity due to excess calories (ICD-10) 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 [facility] Health care directive on file ?Z78.9 - Other specified health status (ICD-10) Closed right ankle fracture ?S82.891A - Other fracture of right lower leg, initial encounter for closed fracture (ICD-10) Osteoarthritis of right shoulder ?M19.011 - Primary osteoarthritis, right shoulder (ICD-10) Osteoarthritis of left shoulder ?M19.012 - Primary osteoarthritis, left shoulder (ICD-10) Right rotator cuff tear arthropathy ?M75.101 - Unspecified rotator cuff tear or rupture of right shoulder, not specified as traumatic (ICD-10) ?M12.811 - Other specific arthropathies, not elsewhere classified, right shoulder (ICD-10) Osteoarthritis of left knee ?M17.12 - Unilateral primary osteoarthritis, left knee (ICD-10) Chronic diastolic CHF (congestive heart failure), NYHA class 2 ?I50.32 - Chronic diastolic (congestive) heart failure (ICD-10) Parkinson disease ?G20 - Parkinson's disease (ICD-10) Venous stasis ulcers of both lower extremities ?I83.019 - Varicose veins of right lower extremity with ulcer of unspecified site (ICD-10) ?I83.029 - Varicose veins of left lower extremity with ulcer of unspecified site (ICD-10) ?L97.919 - Non-pressure chronic ulcer of unspecified part of right lower leg with unspecified severity (ICD-10) ?L97.929 - Non-pressure chronic ulcer of unspecified part of left lower leg with unspecified severity (ICD-10) Hypertension ?I10 - Essential (primary) hypertension (ICD-10) Urinary tract infection ?N39.0 - Urinary tract infection, site not specified (ICD-10) Ulcer of lower extremity ?L97.909 - Non-pressure chronic ulcer of unspecified part of unspecified lower leg with unspecified severity (ICD-10) Chest pain ?R07.9 - Chest pain, unspecified (ICD-10) Cellulitis of leg ?L03.119 - Cellulitis of unspecified part of limb (ICD-10) Atrial fibrillation ?I48.91 - Unspecified atrial fibrillation (ICD-10) Surgical History H/O excision of mass (09/21/00) ?Z98.890 - Other specified postprocedural states (ICD-10) 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 Lives at [place], [place]. No children. Nephew, Michi Chang, is her POA. Requests DNR/DNI resuscitation status. What is your current living situation?: I presently have a place to live Problems where you live: no known problems Problems where you live details: n/a In the past 12 months, utilities in danger of being shut off: no In past 12 months, lack of transportation kept you from medical appts, meetings, work, or getting things needed for daily living: no In the past 12 mos, have been you worried that your food would run out before you had money to buy more?: never true In the past 12 mos, the food you bought just didn't last and you didn't have money to buy more?: never true Highest level of school completed/degree received: Associate degree: academic program Smoking Status: Former smoker What tobacco products do you use: cigarettes Smoking quit date/years: >15 years ago Do you use any of these nicotine containing products: None Second hand tobacco smoke exposure: No How often do you have a drink containing alcohol: never AUDIT-C Alcohol total score: 0 Non-prescribed substance use: denies use Caffeine: Yes How often does anyone, including family, friends and others, physically hurt you : never How often does anyone, including family, friends and others, insult or talk down to you: never How often does anyone, including family, friends and others, threaten you with harm: never How often does anyone, including family, friends and others, scream or curse at you: never service: No Exam Narrative: Exam Narrative: Const: Well-nourished, Well-developed, in mild distress Eyes: PERRL, no conjunctival injection, and symmetrical lids HENT: Atraumatic external nose and ears. Moist mucous membranes. Neck: Symmetric, trachea midline, No thyromegaly. CVS: RRR, No murmurs or gallops. Peripheral pulses 2+ and equal in all extremities RESP: Unlabored respiratory effort. Clear to auscultation bilaterally. GI: Nontender/Nondistended, No rebound or guarding. MSK:Extremities w/o deformity, Normal Active ROM, tenderness to palpation diffusely right knee and right shoulder Skin: Warm, Dry. No rashes or lesions. Neuro: Normal Muscle tone, No focal neurological deficits. Psych: Awake, Alert, & Oriented x3. Appropriate mood and affect. Const: Vital Signs, click to edit/add: Vital Signs - 24 hr 01/09/23 12:12 01/09/23 12:16 01/09/23 12:17 Temperature 98.5 F Pulse Rate 75 70 Pulse Rate [Pulse Oximeter] 78 Respiratory Rate 16 Blood Pressure 97/74 Blood Pressure [Ri ght Upper Arm] 91/50 L Pulse Oximetry 94 94 90 Oxygen Delivery Me thod Room Air 01/09/23 12:30 01/09/23 12:32 01/09/23 12:33 Temperature Pulse Rate 73 73 72 Pulse Rate [Pulse Oximeter] Respiratory Rate Blood Pressure 96/57 L Blood Pressure [Ri ght Upper Arm] Pulse Oximetry 92 88 93 Oxygen Delivery Me thod 01/09/23 12:45 01/09/23 12:46 01/09/23 13:23 Temperature Pulse Rate 74 84 Pulse Rate [Pulse Oximeter] Respiratory Rate Blood Pressure 106/62 Blood Pressure [Ri ght Upper Arm] Pulse Oximetry 91 Oxygen Delivery Me thod 01/09/23 13:30 01/09/23 13:34 01/09/23 13:45 Temperature Pulse Rate 79 77 73 Pulse Rate [Pulse Oximeter] Respiratory Rate Blood Pressure 113/88 Blood Pressure [Ri ght Upper Arm] Pulse Oximetry 94 95 91 Oxygen Delivery Me thod 01/09/23 13:49 01/09/23 14:00 01/09/23 14:09 Temperature Pulse Rate 77 75 77 Pulse Rate [Pulse Oximeter] Respiratory Rate Blood Pressure 119/50 L Blood Pressure [Ri ght Upper Arm] Pulse Oximetry 90 91 94 Oxygen Delivery Me thod 01/09/23 14:15 01/09/23 14:17 01/09/23 14:18 Temperature Pulse Rate 72 74 75 Pulse Rate [Pulse Oximeter] Respiratory Rate Blood Pressure 122/51 L Blood Pressure [Ri ght Upper Arm] Pulse Oximetry 94 93 92 Oxygen Delivery Me thod 01/09/23 14:30 01/09/23 14:32 01/09/23 14:45 Temperature Pulse Rate 75 76 74 Pulse Rate [Pulse Oximeter] Respiratory Rate Blood Pressure 128/71 Blood Pressure [Ri ght Upper Arm] Pulse Oximetry 92 95 93 Oxygen Delivery Me thod 01/09/23 14:47 01/09/23 15:00 01/09/23 15:02 Temperature Pulse Rate 80 68 68 Pulse Rate [Pulse Oximeter] Respiratory Rate Blood Pressure 120/67 137/71 Blood Pressure [Ri ght Upper Arm] Pulse Oximetry 94 91 93 Oxygen Delivery Me thod 01/09/23 15:24 01/09/23 15:30 01/09/23 15:34 Temperature Pulse Rate 76 75 73 Pulse Rate [Pulse Oximeter] Respiratory Rate Blood Pressure 183/94 H Blood Pressure [Ri ght Upper Arm] Pulse Oximetry 95 95 88 Oxygen Delivery Me thod 01/09/23 15:51 01/09/23 15:53 Temperature Pulse Rate 80 72 Pulse Rate [Pulse Oximeter] Respiratory Rate Blood Pressure 115/53 L Blood Pressure [Ri ght Upper Arm] Pulse Oximetry 93 92 Oxygen Delivery Me thod Course Vital Signs Vital signs: Initial Vital Signs Temperature 98.5 F 01/09/23 12:12 Temperature Source Temporal Artery Scan 01/09/23 12:12 Pulse Rate 78 01/09/23 12:12 Respiratory Rate 16 01/09/23 12:12 Blood Pressure 91/50 L 01/09/23 12:12 Blood Pressure Mean 63 L 01/09/23 12:12 Blood Pressure Position Supine 01/09/23 12:12 Pulse Oximetry 94 01/09/23 12:12 Oxygen Delivery Method Room Air 01/09/23 12:12 Vital Signs Temperature 98.5 F 01/09/23 12:12 Pulse Rate 78 01/09/23 12:12 Respiratory Rate 16 01/09/23 12:12 Blood Pressure 91/50 L 01/09/23 12:12 Pulse Oximetry 94 01/09/23 12:12 Oxygen Delivery Method Room Air 01/09/23 12:12 Temperature 98.5 F 01/09/23 12:12 Pulse Rate 72 01/09/23 15:53 Respiratory Rate 16 01/09/23 12:12 Blood Pressure 115/53 L 01/09/23 15:53 Pulse Oximetry 92 01/09/23 15:53 Oxygen Delivery Method Room Air 01/09/23 12:12 Medications Administered Medications: Discontinued Medications Generic Name Dose Route Start Last Admin Trade Name Barneyq PRN Reason Stop Dose Admin Lactated Ringer's 1,000 mls @ 1,000 mls/hr 01/09/23 12:31 01/09/23 13:54 Lactated Ringers 1000 Ml IV 01/09/23 13:30 1,000 mls/hr .Q1H ONE Administration Ketorolac Tromethamine 15 mg 01/09/23 12:34 01/09/23 13:54 Ketorolac 15 Mg/Ml Inj IVP 01/09/23 12:35 15 mg ONCE ONE Administration Medical Decision Making MDM Narrative Medical decision making narrative: Patient is an 87-year-old female presented emergency department for right knee and shoulder pain along with weakness. Symptoms have been going on since yesterday. She fell today to her knee is and hurt her right knee and right shoulder. She states she did not hit her head in his abdomen she denied. Do that I do not believe we need head imaging at this time. We will order x-rays of the right knee and right shoulder. She is feeling weak and then have mildly low blood pressure so we will order a L of normal saline give her Toradol for pain. Also ordered magnesium, CMP, CBC, COVID status fluid, BNP, urinalysis, troponin. Lab work all returned showing no acute abnormalities other than urinalysis was repeats show UTI. COVID and flu are negative. No signs of electrolyte abnormalities. No signs of infection eyes in the urinalysis. Chest x-ray showed no acute abnormalities. Imaging of the right shoulder and right knee show no acute abnormalities. Patient was able to ambulate all around the emergency department without difficulty. We watched her walk and she did not need any assistance. We will started on antibiotics for likely UTI. X-ray of the right shoulder does show possible signs of rotator cuff injury but she does have movement of that shoulder at this time and this is likely not acute. She does states she has previously a rotator cuff injury in past. She is agreeable to this plan. Patient will be discharged home. Lab Data Labs: Lab Results 01/09/23 01/09/23 01/09/23 Range/Units 12:20 13:52 15:31 WBC 9.62 (4.50-11.00) K/uL RBC 4.17 (4.00-5.20) m/uL Hgb 12.6 (12.0-16.0) gm/dL Hct 39.1 (33.0-51.0) % MCV 94 (80-100) fL MCH 30 (26-34) pg MCHC 32 (32-36) gm/dL RDW Coeff of Mandeep 15.4 (11.5-15.5) % Plt Count 206 (140-440) K/uL Neut % (Auto) 89.3 H (42.0-72.0) % Lymph % (Auto) 1.8 L (20-44) % [place] % (Auto) 7.9 (0.0-11.0) % Eos % (Auto) 0.5 (0.0-7.0) % Baso % (Auto) 0.2 (0.0-3.0) % Neut # (Auto) 8.60 H (1.7-7.0) K/uL Lymph # (Auto) 0.20 L (0.90-2.90) K/uL [place] # (Auto) 0.80 (0.00-0.90) K/UL Eos # (Auto) 0.05 (0.00-0.50) K/uL Baso # (Auto) 0.02 (0.00-0.30) K/uL Abs Immat Gran (auto) 0.03 (0.00-0.30) K/uL Imm/Tot Granulo (auto) 0.3 % Diff Slide Review Acceptable Review (Acceptable) Sodium 135 (135-149) mmol/L Potassium 4.8 (3.6-5.1) mmol/L Chloride 102 (96-114) mmol/L Carbon Dioxide 24 (20-32) mmol/L Anion Gap 9 (7-15) mEq/L BUN 42 H (7-30) mg/dL Creatinine 1.2 (0.5-1.5) mg/dL Estimated GFR 44 ml/min Glucose 108 (60-115) mg/dL Calcium 8.5 (8.4-10.6) mg/dL Magnesium 2.6 (1.5-2.6) mg/dL Total Bilirubin 1.1 (0.1-1.5) mg/dL AST 25 (12-35) U/L ALT 7 (4-35) U/L Alkaline Phosphatase 82 (40-150) U/L Troponin I 0.01 (0.01-0.04) ng/mL NT-Pro-B Natriuret Pep 4480 pg/mL Total Protein 7.3 (6.0-8.3) g/dL Albumin 3.9 (3.3-5.0) g/dL Urine Color Yellow (Yellow) Urine Appearance Cloudy A (Clear) Urine pH 6.0 (5.0-8.5) Ur Specific [place] 1.010 (1.000-1.030) Urine Protein Negative (Negative) Urine Glucose (UA) Negative (Negative) Urine Ketones Negative (Negative) Urine Blood 2+ A (Negative) Urine Nitrite Negative (Negative) Urine Bilirubin Negative (Negative) Urine Urobilinogen 0.2 (0.2-1.0) Ur Leukocyte Esterase 3+ A (Negative) Urine RBC >100 A (0-2) Urine WBC >100 A (0-5) Ur Squamous Epith Cells None (None-Few) Urine Bacteria Moderate A (None) SARS-CoV-2 (PCR) Negative SARS-CoV-2 (Negative) Influenza Type A (PCR) Negative PCR FLU A (Negative) Influenza Type B (PCR) Negative PCR FLU B (Negative) RSV (PCR) Negative PCR RSV (Negative) Imaging Data Chest x-ray: Radiologist's impression: No acute findings. Dictated by Gerber Carter MD @ 01/09/2023 2:35:03 PM Right knee x-ray: Radiologist's impression: No acute findings. Dictated by Gerber Carter MD @ 01/09/2023 2:38:44 PM Right shoulder x-ray: Radiologist's impression: No acute findings. Superior subluxation of the humeral head, new in the interval since 11/15/2019, may represent indirect evidence of a rotator cuff tear which otherwise cannot be evaluated on this imaging modality (unlike MRI). Mild glenohumeral osteoarthrosis Dictated by Gerber Carter MD @ 01/09/2023 2:37:20 PM ECG Data Attestation: I personally reviewed and interpreted this ECG as follows: Prior ECG tracings: available for review Interpretation: EKG shows AFib with a rate of 70 beats per minute, normal axis, no ST or T-wave abnormalities. Appears similar to previous EKGs on file Discharge Plan Discharge Clinical Impression: UTI (urinary tract infection) Qualifiers: Urinary tract infection type: acute cystitis Hematuria presence: with hematuria Qualified Code(s): N30.01 - Acute cystitis with hematuria Patient Disposition: Home, Self-Care Condition: Stable Instructions: Urinary Tract Infection in Older Adults (ED) Additional Instructions: Follow-up with the primary care provider symptoms are not improving. Return to emergency department for new or worsening symptoms. Your imaging showed no acute fractures but the right shoulder showed a possible rotator cuff injury. Is unable say for certain MRI and they cannot say if it is new or not. You do have a urinary tract infection and will be started on antibiotics Prescriptions: New cephalexin 250 mg capsule 250 mg PO QID Qty: 20 0RF No Action warfarin 5 mg tablet 2 mg PO .UD Rx Instructions: Take 2mg Mon, Wed, Fri, Sun carbidopa-levodopa 25-100 mg tablet 1 tab PO TID gabapentin 100 mg capsule 100 mg PO TID nystatin 100,000 unit/gram powder 1 applic topical BID PRN Rx Instructions: topically to pannus and breasts BID PRN. cetirizine [24Hour Allergy] 10 mg tablet 10 mg PO DAILY fluoxetine 20 mg capsule 20 mg PO DAILY losartan 50 mg Tablet 50 mg PO DAILY Qty: 30 0RF furosemide 40 mg Tablet 80 mg PO QAM Qty: 60 0RF potassium chloride 10 mEq Capsule, Extended Release 20 meq PO DAILYWM Qty: 60 0RF sennosides-docusate sodium [Stool Softener-Laxative] 8.6-50 mg Tablet 1 tab PO DAILY PRNQty: 30 0RF cephalexin 500 mg Capsule 500 mg PO BID 5 Days Qty: 10 0RF oxycodone 5 mg Tablet 2.5 - 5 mg PO Q4H PRNQty: 20 0RF metoprolol tartrate 25 mg Tablet 25 mg PO BID Qty: 60 0RF acetaminophen 325 mg Tablet 975 mg PO TID Qty: 60 0RF Follow Up/Referrals: Sofia Guerrero MD [Staff Physician] - Stand Alone Forms: [facility] Inst[facility]
[2023-01-09 13:18] LABS: PCR FLU A Negative PCR FLU A (Negative); PCR FLU B Negative PCR FLU B (Negative); PCR RSV Negative PCR RSV (Negative)
[2023-01-09 13:24] LABS: SARS PCR* Negative SARS-CoV-2 (Negative)
[2023-01-09] MEDS: KETOROLAC 15 MG/ML inj IVP (13:54)
[2023-01-09] MEDS: LACTATED RINGERS 1000 ML 1,000 ML IV (13:54)
[2023-01-09 14:07] LABS: Basophils Absolute Auto 0.02 K/uL (0.00-0.30); Basophils Percent Auto 0.2 % (0.0-3.0); Eosinophils Absolute Auto 0.05 K/uL (0.00-0.50); Eosinophils Percent Auto 0.5 % (0.0-7.0); Hematocrit 39.1 % (33.0-51.0); Hemoglobin* 12.6 gm/dL (12.0-16.0); Immature Granulocytes Abs Auto 0.03 K/uL (0.00-0.30); Immature Granulocytes Pct Auto 0.3 %; Lymphocytes Percent Auto 1.8 % (20-44); Mean Corpuscular HGB Conc 32 gm/dL (32-36); Mean Corpuscular Hemoglobin 30 pg (26-34); Mean Corpuscular Volume 94 fL (80-100); Monocytes Percent Auto 7.9 % (0.0-11.0); Neutrophils Percent Auto 89.3 % (42.0-72.0); Platelet Count* 206 K/uL (140-440); RDW Coefficient of Variation % 15.4 % (11.5-15.5); Red Blood Count 4.17 m/uL (4.00-5.20); White Blood Count* 9.62 K/uL (4.50-11.00)
[2023-01-09 14:13] LABS: Slide Review Reflex Yes
[2023-01-09 14:15] LABS: Slide Review Acceptable Review (Acceptable)
[2023-01-09 14:25] LABS: Albumin* 3.9 g/dL (3.3-5.0); Chloride* 102 mmol/L (96-114); INR 1.84 (0.91-1.10); Prothrombin Time 22.5 Seconds; Sodium* 135 mmol/L (135-149)
[2023-01-09 14:26] LABS: Potassium* 4.8 mmol/L (3.6-5.1)
[2023-01-09 14:28] LABS: Alanine Aminotransferase* 7 U/L (4-35); Alkaline Phosphatase* 82 U/L (40-150); Anion Gap 9 mEq/L (7-15); Aspartate Amino Transferase* 25 U/L (12-35); Bilirubin Total* 1.1 mg/dL (0.1-1.5); Blood Urea Nitrogen* 42 mg/dL (7-30); Carbon Dioxide* 24 mmol/L (20-32); Creatinine* 1.2 mg/dL (0.5-1.5); Estimated Glomerular Filt Rate 44 ml/min; Glucose* 108 mg/dL (60-115); Total Protein* 7.3 g/dL (6.0-8.3)
[2023-01-09 14:29] LABS: Calcium* 8.5 mg/dL (8.4-10.6); Magnesium* 2.6 mg/dL (1.5-2.6)
--- NOTE | 2023-01-09 14:31 | PC.NURSE ---
Call to Nikole from [facility] for update. Once we have more information on patient disposition she would like another update.
[2023-01-09 14:40] LABS: Troponin I* 0.01 ng/mL (0.01-0.04)
[2023-01-09 14:41] LABS: NT Pro B Type NatriureticPept* 4480 pg/mL
--- NOTE | 2023-01-09 15:03 | ED.NURSE ---
was incontinent of a large amt of urine. bed changed and extra attends placed.
[2023-01-09 15:44] LABS: Appearance Urine Cloudy (Clear); Bilirubin Urine Negative (Negative); Blood Urine 2+ (Negative); Color Urine Yellow (Yellow); Glucose Urine Negative (Negative); Ketones Urine Negative (Negative); Leukocyte Esterase Urine 3+ (Negative); Nitrite Urine Negative (Negative); Protein Urine Negative (Negative); Urobilinogen Urine 0.2 (0.2-1.0)
[2023-01-09 16:07] LABS: Bacteria Urine Moderate; RBC Urine >100 (0-2); WBC Urine >100 (0-5)
[2023-01-09] MEDS: cephALEXin 250 MG CAPSULE PO (16:58)
== END 2023-01-09 17:16 | disposition home or self-care (01) ==
PROVIDERS: Emergency Provider Student in an Organized Health Care Education/Training Program
DX: N39.0 Urinary tract infection, site not specified (principal)
CPT/HCPCS: 36415; 71046; 73030; 73564; 80053; 81001; 83735; 83880; 84484; 85025; 85610; 87086; 87186; 87631; 93005; 96361; 96374; 99283; 99284; 99285; A9270; J1885; J7120

== ENCOUNTER 2023-01-09 17:08 | Outpatient (CLI) | payer MEDICARE, BC, SELFPAY | END 2023-01-09 17:09 | disposition home or self-care (01) | LOC: AMB 01-12 10:54 | PROVIDERS: Visit Provider Family Medicine | DX: Z99.3 Dependence on wheelchair (principal) | CPT/HCPCS: A0425; A0428 ==

== ENCOUNTER 2023-01-20 11:14 | Outpatient (REF) | payer MEDICARE, BC, SELFPAY ==
[2023-01-20 12:49] LABS: Basophils Absolute Auto 0.01 K/uL (0.00-0.30); Basophils Percent Auto 0.1 % (0.0-3.0); Eosinophils Absolute Auto 0.24 K/uL (0.00-0.50); Hemoglobin* 11.6 gm/dL (12.0-16.0); Immature Granulocytes Abs Auto 0.03 K/uL (0.00-0.30); Immature Granulocytes Pct Auto 0.4 %; Lymphocytes Percent Auto 2.2 % (20-44); Mean Corpuscular HGB Conc 31 gm/dL (32-36); Mean Corpuscular Hemoglobin 30 pg (26-34); Mean Corpuscular Volume 96 fL (80-100); Monocytes Percent Auto 6.6 % (0.0-11.0); Neutrophils Percent Auto 87.7 % (42.0-72.0); Platelet Count* 217 K/uL (140-440); RDW Coefficient of Variation % 16.2 % (11.5-15.5); Red Blood Count 3.85 m/uL (4.00-5.20); White Blood Count* 8.02 K/uL (4.50-11.00)
[2023-01-20 12:58] LABS: Slide Review Reflex No
[2023-01-20 13:09] LABS: Chloride* 102 mmol/L (96-114); Sodium* 137 mmol/L (135-149)
[2023-01-20 13:12] LABS: Creatinine* 0.9 mg/dL (0.5-1.5); Estimated Glomerular Filt Rate 63 ml/min
[2023-01-20 13:13] LABS: Anion Gap 9 mEq/L (7-15); Blood Urea Nitrogen* 30 mg/dL (7-30); Calcium* 8.5 mg/dL (8.4-10.6); Carbon Dioxide* 26 mmol/L (20-32); Glucose* 99 mg/dL (60-115)
== END 2023-01-20 11:15 | disposition home or self-care (01) ==
LOC: NPINS 11:14
PROVIDERS: Visit Provider Nurse Practitioner Gerontology
DX: R53.1 Weakness (principal)
CPT/HCPCS: 80048; 85025

== ENCOUNTER 2023-02-03 14:48 | Outpatient (REF) | payer MEDICARE, BC, SELFPAY ==
[2023-02-03 17:12] LABS: Potassium* 4.6 mmol/L (3.6-5.1)
== END 2023-02-03 14:49 | disposition home or self-care (01) ==
LOC: NPINS 14:48
PROVIDERS: Visit Provider Family Medicine
DX: R53.1 Weakness (principal)
CPT/HCPCS: 84132

== ENCOUNTER 2023-02-10 13:11 | Outpatient (REF) | payer MEDICARE, BC, SELFPAY ==
[2023-02-10 14:20] LABS: NT Pro B Type NatriureticPept* 3540 pg/mL
== END 2023-02-10 13:12 | disposition home or self-care (01) ==
LOC: NPINS 13:11
PROVIDERS: Visit Provider Family Medicine
DX: I50.9 Heart failure, unspecified (principal)
CPT/HCPCS: 83880

== ENCOUNTER 2023-03-03 12:48 | Outpatient (REF) | payer MEDICARE, BC, SELFPAY ==
[2023-03-03 13:11] LABS: Chloride* 103 mmol/L (96-114); Potassium* 4.2 mmol/L (3.6-5.1); Sodium* 138 mmol/L (135-149)
[2023-03-03 13:14] LABS: Anion Gap 12 mEq/L (7-15); Blood Urea Nitrogen* 23 mg/dL (7-30); Carbon Dioxide* 23 mmol/L (20-32); Creatinine* 0.9 mg/dL (0.5-1.5); Estimated Glomerular Filt Rate 63 ml/min; Glucose* 110 mg/dL (60-115)
[2023-03-03 13:15] LABS: Calcium* 8.7 mg/dL (8.4-10.6)
== END 2023-03-03 12:49 | disposition home or self-care (01) ==
LOC: NPINS 12:48
PROVIDERS: Visit Provider Nurse Practitioner Gerontology
DX: E87.5 Hyperkalemia (principal)
CPT/HCPCS: 80048

== ENCOUNTER 2023-03-13 08:38 | Outpatient (CLI) | payer MEDICARE, BC, SELFPAY | END 2023-03-13 08:39 | disposition home or self-care (01) | LOC: WOUND 08:38 | PROVIDERS: Visit Provider Nurse Practitioner Family | DX: I87.312 Chronic venous hypertension (idiopathic) with ulcer of left lower extremity (principal); L97.828 Non-pressure chronic ulcer of other part of left lower leg with other specified severity; I89.0 Lymphedema, not elsewhere classified; I73.9 Peripheral vascular disease, unspecified | CPT/HCPCS: 87070; 87186; 97597; G0463 ==

== ENCOUNTER 2023-03-20 12:38 | Outpatient (CLI) | payer MEDICARE, BC, SELFPAY | END 2023-03-20 12:39 | disposition home or self-care (01) | LOC: WOUND 12:38 | PROVIDERS: Visit Provider Physician Assistant | DX: I89.0 Lymphedema, not elsewhere classified (principal); I73.9 Peripheral vascular disease, unspecified; I87.303 Chronic venous hypertension (idiopathic) without complications of bilateral lower extremity; L97.822 Non-pressure chronic ulcer of other part of left lower leg with fat layer exposed; L97.828 Non-pressure chronic ulcer of other part of left lower leg with other specified severity | CPT/HCPCS: 93926; 97597 ==

== ENCOUNTER 2023-03-27 11:13 | Outpatient (CLI) | payer MEDICARE, BC, SELFPAY | END 2023-03-27 11:14 | disposition home or self-care (01) | LOC: WOUND 11:14 | PROVIDERS: Visit Provider Nurse Practitioner Family | DX: I87.312 Chronic venous hypertension (idiopathic) with ulcer of left lower extremity (principal); I73.9 Peripheral vascular disease, unspecified; L97.822 Non-pressure chronic ulcer of other part of left lower leg with fat layer exposed; I89.0 Lymphedema, not elsewhere classified | CPT/HCPCS: 97597 ==

== ENCOUNTER 2023-04-03 11:02 | Outpatient (CLI) | payer MEDICARE, BC, SELFPAY | END 2023-04-03 11:03 | disposition home or self-care (01) | LOC: WOUND 11:02 | PROVIDERS: Visit Provider Nurse Practitioner Family | DX: I87.312 Chronic venous hypertension (idiopathic) with ulcer of left lower extremity (principal); I73.9 Peripheral vascular disease, unspecified; L97.822 Non-pressure chronic ulcer of other part of left lower leg with fat layer exposed; I89.0 Lymphedema, not elsewhere classified | CPT/HCPCS: 97597 ==

== ENCOUNTER 2023-04-10 11:04 | Outpatient (CLI) | payer MEDICARE, BC, SELFPAY | END 2023-04-10 11:05 | disposition home or self-care (01) | LOC: WOUND 11:04 | PROVIDERS: Visit Provider Nurse Practitioner Family | DX: I87.312 Chronic venous hypertension (idiopathic) with ulcer of left lower extremity (principal); I73.9 Peripheral vascular disease, unspecified; L97.822 Non-pressure chronic ulcer of other part of left lower leg with fat layer exposed | CPT/HCPCS: 97597 ==

== ENCOUNTER 2023-04-17 11:21 | Outpatient (CLI) | payer MEDICARE, BC, SELFPAY | END 2023-04-17 11:22 | disposition home or self-care (01) | LOC: WOUND 11:21 | PROVIDERS: Visit Provider Nurse Practitioner Family | DX: I87.313 Chronic venous hypertension (idiopathic) with ulcer of bilateral lower extremity (principal); L97.822 Non-pressure chronic ulcer of other part of left lower leg with fat layer exposed; L97.812 Non-pressure chronic ulcer of other part of right lower leg with fat layer exposed; I48.20 Chronic atrial fibrillation, unspecified; I89.0 Lymphedema, not elsewhere classified | CPT/HCPCS: 97597 ==

== ENCOUNTER 2023-04-24 11:21 | Outpatient (CLI) | payer MEDICARE, BC, SELFPAY | END 2023-04-24 11:22 | disposition home or self-care (01) | LOC: WOUND 11:22 | PROVIDERS: Visit Provider Nurse Practitioner Family | DX: I87.313 Chronic venous hypertension (idiopathic) with ulcer of bilateral lower extremity (principal); L97.822 Non-pressure chronic ulcer of other part of left lower leg with fat layer exposed; L97.812 Non-pressure chronic ulcer of other part of right lower leg with fat layer exposed; I89.0 Lymphedema, not elsewhere classified; I73.9 Peripheral vascular disease, unspecified | CPT/HCPCS: 97597 ==

== ENCOUNTER 2023-05-01 11:23 | Outpatient (CLI) | payer MEDICARE, BC, SELFPAY | END 2023-05-01 11:24 | disposition home or self-care (01) | LOC: WOUND 11:24 | PROVIDERS: Visit Provider Nurse Practitioner Family | DX: I87.312 Chronic venous hypertension (idiopathic) with ulcer of left lower extremity (principal); I73.9 Peripheral vascular disease, unspecified; L97.822 Non-pressure chronic ulcer of other part of left lower leg with fat layer exposed; I89.0 Lymphedema, not elsewhere classified | CPT/HCPCS: 97597 ==

== ENCOUNTER 2023-05-08 11:11 | Outpatient (CLI) | payer MEDICARE, BC, SELFPAY | END 2023-05-08 11:12 | disposition home or self-care (01) | LOC: WOUND 11:11 | PROVIDERS: Visit Provider Nurse Practitioner Family | DX: I87.313 Chronic venous hypertension (idiopathic) with ulcer of bilateral lower extremity (principal); L97.822 Non-pressure chronic ulcer of other part of left lower leg with fat layer exposed; L97.812 Non-pressure chronic ulcer of other part of right lower leg with fat layer exposed; I89.0 Lymphedema, not elsewhere classified; I73.9 Peripheral vascular disease, unspecified | CPT/HCPCS: 97597 ==

== ENCOUNTER 2023-05-18 19:25 | Outpatient (CLI) | payer MEDICARE, BC, SELFPAY | END 2023-05-18 19:26 | disposition home or self-care (01) | LOC: AMB 05-20 11:07 | PROVIDERS: Visit Provider Emergency Medicine Emergency Medical Services | DX: R53.1 Weakness (principal); R11.2 Nausea with vomiting, unspecified; R19.7 Diarrhea, unspecified | CPT/HCPCS: A0425; A0429 ==

== ENCOUNTER 2023-05-18 19:50 | Inpatient (IN) | payer MEDICARE, BC, SELFPAY ==
[2023-05-18] VITALS (11 sets, daily range): BP systolic 124–149; BP diastolic 59–73; PULSE 65–86; RESP 16; TEMP 36.7–36.9; O2SAT 83–100; BMI 45.1
--- NOTE | 2023-05-18 20:18 | ED_ITS ---
HPI - General Adult General Chief complaint: Weakness Stated complaint: GI issues Time Seen by Provider: 05/18/23 20:06 History of Present Illness HPI narrative: This 87-year-old female comes in stating that she is feeling generalized weakness because she has been having some symptoms of nausea, vomiting, and diarrhea over the past week. She states that her diarrhea has improved in the past few days. She states she has had 1 diarrhea episode today and 1 yesterday. She states that she also had a cough and reports that other people in her place of residence have had some similar symptoms. She has been taking Compazine and Imodium with some improvement with these treatments. She states that she took some food today and it tasted good to her. She arrives here with normal vital signs. Related Data Home Medications Medication Instructions Recorded Confirmed warfarin 5 mg tablet 2 mg PO .UD 12/26/21 11/07/22 carbidopa 25 mg-levodopa 100 mg 1 tab PO TID 08/07/22 11/08/22 tablet gabapentin 100 mg capsule 100 mg PO TID 08/08/22 11/07/22 cetirizine 10 mg tablet (24Hour 10 mg PO DAILY 11/07/22 11/07/22 Allergy) nystatin 100,000 unit/gram topical 1 applic topical BID PRN 11/07/22 11/07/22 powder fluoxetine 20 mg capsule 20 mg PO DAILY 11/08/22 11/08/22 Previous Rx's Medication Instructions Recorded acetaminophen 325 mg tablet 975 mg (3 x 325 mg) PO TID #60 tabs 11/11/22 cephalexin 500 mg capsule 500 mg PO BID 5 days #10 caps 11/11/22 furosemide 40 mg tablet 80 mg (2 x 40 mg) PO QAM #60 tabs 11/11/22 losartan 50 mg tablet 50 mg PO DAILY #30 tabs 11/11/22 metoprolol tartrate 25 mg tablet 25 mg PO BID #60 tabs 11/11/22 oxycodone 5 mg tablet 2.5 - 5 mg (0.5 - 1 x 5 mg) PO Q4H 11/11/22 PRN #20 tabs potassium chloride 10 mEq 20 meq (2 x 10 mEq) PO DAILYWM #60 11/11/22 capsule,extended release caps sennosides 8.6 mg-docusate sodium 1 tab PO DAILY PRN #30 tabs 11/11/22 50 mg tablet (Stool Softener-Laxative) cephalexin 250 mg capsule 250 mg PO QID #20 caps 01/09/23 Allergies Allergy/AdvReac Type Severity Reaction Status Date / Time hydrochlorothiazide Allergy Verified 11/07/22 14:31 Sulfa (Sulfonamide Allergy Rash Verified 11/07/22 14:31 Antibiotics) Review of Systems Status of ROS: Reports: 10 or more systems reviewed and unremarkable except as noted in History and below Narrative: Constitutional: No fevers, no weight gain or loss. Eyes: No discharge. No vision changes. HENT: No congestion, no sore throat, no ear pain. Cardiovascular: No chest pain, no palpitations. Respiratory: No shortness of breath, no wheezes, no cough. Gastrointestinal: No abdominal pain. Nausea, vomiting, and diarrhea as described above. Genitourinary: No dysuria, no hematuria. Musculoskeletal: Normal range of motion. Skin: No rashes, no pruritis. Neurological: No dizziness, weakness, sensory change, speech change. Endo/Heme/Allergies: No bruising or bleeding. No polydipsia. Pysch: no suicidality, no anxiety, no insomnia. All other systems reviewed and are negative. [facility] Medical History Respiratory failure ?J96.90 - Respiratory failure, unspecified, unspecified whether with hypoxia or hypercapnia (ICD-10) Fracture of rib ?S22.39XA - Fracture of one rib, unspecified side, initial encounter for closed fracture (ICD-10) Physical debility ?R53.81 - Other malaise (ICD-10) Physical deconditioning ?R53.81 - Other malaise (ICD-10) At risk for falls ?Z91.81 - History of falling (ICD-10) Unstable gait ?R26.81 - Unsteadiness on feet (ICD-10) Lymphedema ?I89.0 - Lymphedema, not elsewhere classified (ICD-10) Opioid dependence ?F11.20 - Opioid dependence, uncomplicated (ICD-10) Chronic pain ?G89.29 - Other chronic pain (ICD-10) Warfarin anticoagulation ?Z79.01 - MCFP (current) use of anticoagulants (ICD-10) Chronic atrial fibrillation ?I48.20 - Chronic atrial fibrillation, unspecified (ICD-10) Depression ?F32.A - Depression, unspecified (ICD-10) Essential hypertension ?I10 - Essential (primary) hypertension (ICD-10) Generalized OA ?M15.9 - Polyosteoarthritis, unspecified (ICD-10) Cellulitis of left lower leg ?L03.116 - Cellulitis of left lower limb (ICD-10) Morbid obesity ?E66.01 - Morbid (severe) obesity due to excess calories (ICD-10) Durable power of investigation officer [facility] Health care directive on file ?Z78.9 - Other specified health status (ICD-10) Closed right ankle fracture ?S82.891A - Other fracture of right lower leg, initial encounter for closed fracture (ICD-10) Osteoarthritis of right shoulder ?M19.011 - Primary osteoarthritis, right shoulder (ICD-10) Osteoarthritis of left shoulder ?M19.012 - Primary osteoarthritis, left shoulder (ICD-10) Right rotator cuff tear arthropathy ?M75.101 - Unspecified rotator cuff tear or rupture of right shoulder, not specified as traumatic (ICD-10) ?M12.811 - Other specific arthropathies, not elsewhere classified, right shoulder (ICD-10) Osteoarthritis of left knee ?M17.12 - Unilateral primary osteoarthritis, left knee (ICD-10) Chronic diastolic CHF (congestive heart failure), NYHA class 2 ?I50.32 - Chronic diastolic (congestive) heart failure (ICD-10) Parkinson disease ?G20 - Parkinson's disease (ICD-10) Venous stasis ulcers of both lower extremities ?I83.019 - Varicose veins of right lower extremity with ulcer of unspecified site (ICD-10) ?I83.029 - Varicose veins of left lower extremity with ulcer of unspecified site (ICD-10) ?L97.919 - Non-pressure chronic ulcer of unspecified part of right lower leg with unspecified severity (ICD-10) ?L97.929 - Non-pressure chronic ulcer of unspecified part of left lower leg with unspecified severity (ICD-10) Hypertension ?I10 - Essential (primary) hypertension (ICD-10) Urinary tract infection ?N39.0 - Urinary tract infection, site not specified (ICD-10) Ulcer of lower extremity ?L97.909 - Non-pressure chronic ulcer of unspecified part of unspecified lower leg with unspecified severity (ICD-10) Chest pain ?R07.9 - Chest pain, unspecified (ICD-10) Cellulitis of leg ?L03.119 - Cellulitis of unspecified part of limb (ICD-10) Atrial fibrillation ?I48.91 - Unspecified atrial fibrillation (ICD-10) Surgical History H/O excision of mass (09/21/00) ?Z98.890 - Other specified postprocedural states (ICD-10) 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 Lives at [place], [place]. No children. Nephew, Michi Chang, is her POA. Requests DNR/DNI resuscitation status. What is your current living situation?: I presently have a place to live Problems where you live: no known problems Problems where you live details: n/a In the past 12 months, utilities in danger of being shut off: no In past 12 months, lack of transportation kept you from medical appts, meetings, work, or getting things needed for daily living: no In the past 12 mos, have been you worried that your food would run out before you had money to buy more?: never true In the past 12 mos, the food you bought just didn't last and you didn't have money to buy more?: never true Highest level of school completed/degree received: Associate degree: academic program Smoking Status: Former smoker What tobacco products do you use: cigarettes Smoking quit date/years: >15 years ago Do you use any of these nicotine containing products: None Second hand tobacco smoke exposure: No How often do you have a drink containing alcohol: never AUDIT-C Alcohol total score: 0 Non-prescribed substance use: denies use Caffeine: Yes How often does anyone, including family, friends and others, physically hurt you : never How often does anyone, including family, friends and others, insult or talk down to you: never How often does anyone, including family, friends and others, threaten you with harm: never How often does anyone, including family, friends and others, scream or curse at you: never service: No Exam Narrative: Exam Narrative: Constitutional: Well-developed, well-nourished, no acute distress. HEENT: Normocephalic, atraumatic. Neck: Normal range of motion. Nontender. Supple. Heart: Irregular. No murmurs. Normal rate. Intact distal pulses. Lungs: Clear to auscultation. No chest discomfort. No wheezes, rhonchi, or rales. Abdomen: Normal bowel sounds. Nontender. No rebound tenderness. Genitalia: Deferred. Back: No midline tenderness. Normal range of motion. Extremities: Normal range of motion. No injury. Skin: Intact. No rash. Warm. No erythema or pallor. Neurologic: No altered sensation. No weakness. Alert and oriented. Psychiatric: No suicidality. No anxiety or depression. No insomnia. Nursing notes and vitals signs are reviewed. Const: Vital Signs, click to edit/add: Vital Signs - 24 hr 05/18/23 19:58 05/18/23 21:32 Temperature 98.0 F Pulse Rate [Pulse Oximeter] 86 Respiratory Rate 16 Blood Pressure [Ri ght Upper Arm] 124/67 Pulse Oximetry 96 83 L Oxygen Delivery Me thod Room Air Nasal Cannula Oxygen Flow Rate 4 Course Vital Signs Vital signs: Initial Vital Signs Temperature 98.0 F 05/18/23 19:58 Temperature Source Temporal Artery Scan 05/18/23 19:58 Pulse Rate 86 05/18/23 19:58 Pulse Rhythm Regular 05/18/23 19:58 Respiratory Rate 16 05/18/23 19:58 Blood Pressure 124/67 05/18/23 19:58 Blood Pressure Mean 86 05/18/23 19:58 Blood Pressure Position Sitting 05/18/23 19:58 Pulse Oximetry 96 05/18/23 19:58 Oxygen Delivery Method Room Air 05/18/23 19:58 Vital Signs Temperature 98.0 F 05/18/23 19:58 Pulse Rate 86 05/18/23 19:58 Respiratory Rate 16 05/18/23 19:58 Blood Pressure 124/67 05/18/23 19:58 Pulse Oximetry 96 05/18/23 19:58 Oxygen Delivery Method Room Air 05/18/23 19:58 Temperature 98.0 F 05/18/23 19:58 Pulse Rate 86 05/18/23 19:58 Respiratory Rate 16 05/18/23 19:58 Blood Pressure 124/67 05/18/23 19:58 Pulse Oximetry 83 L 05/18/23 21:32 Oxygen Delivery Method Nasal Cannula 05/18/23 21:32 Oxygen Flow Rate 4 05/18/23 21:32 Medications Administered Medications: Discontinued Medications Generic Name Dose Route Start Last Admin Trade Name Freq PRN Reason Stop Dose Admin Sodium Chloride 1,000 mls @ 1,000 mls/hr 05/18/23 20:15 05/18/23 21:39 0.9 % Sodium Chloride 1000 Ml IV 05/18/23 21:14 Infused .Q1H [place] Infusion Medical Decision Making MDM Narrative Medical decision making narrative: This 87-year-old female comes in reporting weakness. She has had vomiting and diarrhea that was more frequent about a week ago and now has dissipated to wear his happening once a day in the last couple days. Nevertheless she comes in stating that she feels weak. She does not report any pain. She did have an IV placed and received a L of normal saline intravenously. Labs are acquired and returned with significantly low potassium at 2.4. Her sodium is slightly low at 133. The patient was noted to have hypoxia when she fell asleep with oximetry at around 86%. After acquiring results of her labs I went in to visit her again and noted that while she was awake her oximetry was staying at about 82%. Nasal cannula oxygen was applied and this brought her up into the 90s. The patient states that she did not feel any shortness of breath. This is probably a chronic issue with sleep apnea. Given her hypoxia and hypokalemia I did recommend coming in overnight into the hospital. I spoke with Dr. Cote who agrees with this plan. A chest x-ray is obtained and the patient did receive oral dose of potassium bicarbonate 50 mg. Lab Data Labs: Lab Results 05/18/23 Range/Units 20:30 WBC 11.45 H (4.50-11.00) K/uL RBC 3.85 L (4.00-5.20) m/uL Hgb 12.4 (12.0-16.0) gm/dL Hct 38.6 (33.0-51.0) % MCV 100 (80-100) fL MCH 32 (26-34) pg MCHC 32 (32-36) gm/dL RDW Coeff of Mandeep 13.0 (11.5-15.5) % Plt Count 213 (140-440) K/uL Neut % (Auto) 91.7 H (42.0-72.0) % Lymph % (Auto) 2.2 L (20-44) % Humphreys % (Auto) 5.2 (0.0-11.0) % Eos % (Auto) 0.5 (0.0-7.0) % Baso % (Auto) 0.1 (0.0-3.0) % Neut # (Auto) 10.50 H (1.7-7.0) K/uL Lymph # (Auto) 0.30 L (0.90-2.90) K/uL Humphreys # (Auto) 0.60 (0.00-0.90) K/UL Eos # (Auto) 0.10 (0.00-0.50) K/uL Baso # (Auto) 0.00 (0.00-0.30) K/uL Abs Immat Gran (auto) 0.00 (0.00-0.30) K/uL Imm/Tot Granulo (auto) 0.3 % Sodium 133 L (135-149) mmol/L Potassium 2.4 L* (3.6-5.1) mmol/L Chloride 96 (96-114) mmol/L Carbon Dioxide 27 (20-32) mmol/L Anion Gap 10 (7-15) mEq/L BUN 20 (7-30) mg/dL Creatinine 0.8 (0.5-1.5) mg/dL Estimated GFR 72 ml/min Glucose 129 H (60-115) mg/dL Calcium 8.1 L (8.4-10.6) mg/dL SARS-CoV-2 (PCR) Negative SARS-CoV-2 (Negative) Influenza Type A (PCR) Negative PCR FLU A (Negative) Influenza Type B (PCR) Negative PCR FLU B (Negative) RSV (PCR) Negative PCR RSV (Negative) Discharge Plan Discharge Clinical Impression: Hypoxia, Acute hypokalemia Patient Disposition: Admitted As Inpatient Condition: Unchanged Prescriptions: No Action warfarin 5 mg tablet 2 mg PO .UD Rx Instructions: Take 2mg Mon, Wed, Thu, Thu carbidopa-levodopa 25-100 mg tablet 1 tab PO TID gabapentin 100 mg capsule 100 mg PO TID nystatin 100,000 unit/gram powder 1 applic topical BID PRN Rx Instructions: topically to pannus and breasts BID PRN. cetirizine [24Hour Allergy] 10 mg tablet 10 mg PO DAILY fluoxetine 20 mg capsule 20 mg PO DAILY losartan 50 mg Tablet 50 mg PO DAILY Qty: 30 0RF furosemide 40 mg Tablet 80 mg PO QAM Qty: 60 0RF potassium chloride 10 mEq Capsule, Extended Release 20 meq PO DAILYWM Qty: 60 0RF sennosides-docusate sodium [Stool Softener-Laxative] 8.6-50 mg Tablet 1 tab PO DAILY PRNQty: 30 0RF cephalexin 500 mg Capsule 500 mg PO BID 5 Days Qty: 10 0RF oxycodone 5 mg Tablet 2.5 - 5 mg PO Q4H PRNQty: 20 0RF metoprolol tartrate 25 mg Tablet 25 mg PO BID Qty: 60 0RF acetaminophen 325 mg Tablet 975 mg PO TID Qty: 60 0RF cephalexin 250 mg capsule 250 mg PO QID Qty: 20 0RF Follow Up/Referrals: Provider,Not a Local [Primary Care Provider] -
[2023-05-18] MEDS: ONDANSETRON 2 MG/ML inj 4 MG IVP (20:25)
[2023-05-18 20:40] LABS: Basophils Percent Auto 0.1 % (0.0-3.0); Eosinophils Percent Auto 0.5 % (0.0-7.0); Hematocrit 38.6 % (33.0-51.0); Hemoglobin* 12.4 gm/dL (12.0-16.0); Immature Granulocytes Pct Auto 0.3 %; Lymphocytes Percent Auto 2.2 % (20-44); Mean Corpuscular HGB Conc 32 gm/dL (32-36); Mean Corpuscular Hemoglobin 32 pg (26-34); Mean Corpuscular Volume 100 fL (80-100); Monocytes Percent Auto 5.2 % (0.0-11.0); Neutrophils Percent Auto 91.7 % (42.0-72.0); Platelet Count* 213 K/uL (140-440); Red Blood Count 3.85 m/uL (4.00-5.20); White Blood Count* 11.45 K/uL (4.50-11.00)
[2023-05-18 20:44] LABS: Slide Review Reflex No
[2023-05-18] MEDS: 0.9 % SODIUM CHLORIDE 1000 ml 1,000 ML IV (20:45)
[2023-05-18 21:03] LABS: Chloride* 96 mmol/L (96-114); Sodium* 133 mmol/L (135-149)
[2023-05-18 21:06] LABS: Anion Gap 10 mEq/L (7-15); Blood Urea Nitrogen* 20 mg/dL (7-30); Carbon Dioxide* 27 mmol/L (20-32); Creatinine* 0.8 mg/dL (0.5-1.5); Estimated Glomerular Filt Rate 72 ml/min; Glucose* 129 mg/dL (60-115)
[2023-05-18 21:07] LABS: Calcium* 8.1 mg/dL (8.4-10.6); Potassium* 2.4 mmol/L (3.6-5.1)
[2023-05-18 21:20] LABS: PCR FLU A Negative PCR FLU A (Negative); PCR FLU B Negative PCR FLU B (Negative); PCR RSV Negative PCR RSV (Negative); SARS PCR* Negative SARS-CoV-2 (Negative)
--- NOTE | 2023-05-18 21:51 | XR_ITS ---
Patient: DIVYA CHAVEZ Facility:?[facility] Patient ID:?[id number] Site Patient ID:?[id number]. Site :?[id number] Study:?XRay-Chest 1V PORTABLE-05/18/2023 10:05:01 PM Ordering Physician:ANJU Final Report: INDICATION: Weakness. TECHNIQUE: Chest 1 view. COMPARISON: None. FINDINGS: Cardiovascular and mediastinum: Heart size and vasculature are normal in caliber. Aortic atherosclerotic calcifications. Lungs and pleural spaces: No consolidation. No pleural effusions or pneumothorax. Bones and soft tissues: Degenerative changes of the spine and shoulders. IMPRESSION: No consolidation. Dictated by Miguel Lino MD @ 05/18/2023 10:17:00 PM Signed by:?Miguel Lino MD @05/18/2023 10:17:00 PM (Electronic Signature)
[2023-05-18] MEDS: POTASSIUM BICARB 25 MEQ EFFERVESCENT TAB 50 MEQ PO ×2 (22:00→22:55)
--- NOTE | 2023-05-18 22:09 | ED.NURSE ---
Pt report given to shayna DODSON. Pt to room 259
--- NOTE | 2023-05-18 22:35 | P.IMHP_ITS ---
Hospitalist- H&P: KEIRY History of Present Illness Date Seen: 05/18/23 Chief complaint: GI issues Narrative: Carmel Chang is a 87 year old female with history of atrial fibrillation, aortic stenosis, heart failure, sleep apnea, morbid obesity, chronic venous stasis ulcers with recurrent cellulitis presents with 1 week history of illness. Symptoms began a week ago primarily with cough. She then developed nausea and vomiting and diarrhea. The nausea vomiting diarrhea have stopped in the last day or so. Associated with this she became increasingly weak and was profoundly weak today. She has not been eating and drinking well with her nausea vomiting and diarrhea. She has not been short of breath or had chest pain. She has not had subjective fever or chills. There has been no blood in her emesis or her diarrhea. Review of Systems Narrative: She reports no other new or changing symptoms except as noted above. She has sleep apnea but does not use her CPAP because she does not like it. She has been hypoxic in the emergency department but not dyspneic. She is not aware of any urinary symptoms though she is incontinent of urine. [facility] Medical History (Updated 05/18/23 @ 22:55 by Atilio Cote MD) Aortic stenosis ?I35.0 - Nonrheumatic aortic (valve) stenosis (ICD-10) Obstructive sleep apnea ?G47.33 - Obstructive sleep apnea (adult) (pediatric) (ICD-10) Physical debility ?R53.81 - Other malaise (ICD-10) Lymphedema ?I89.0 - Lymphedema, not elsewhere classified (ICD-10) Chronic pain ?G89.29 - Other chronic pain (ICD-10) Warfarin anticoagulation ?Z79.01 - retirement (current) use of anticoagulants (ICD-10) Cellulitis of left lower leg ?L03.116 - Cellulitis of left lower limb (ICD-10) Morbid obesity ?E66.01 - Morbid (severe) obesity due to excess calories (ICD-10) Respiratory failure ?J96.90 - Respiratory failure, unspecified, unspecified whether with hypoxia or hypercapnia (ICD-10) Fracture of rib ?S22.39XA - Fracture of one rib, unspecified side, initial encounter for closed fracture (ICD-10) Physical deconditioning ?R53.81 - Other malaise (ICD-10) At risk for falls ?Z91.81 - History of falling (ICD-10) Unstable gait ?R26.81 - Unsteadiness on feet (ICD-10) Opioid dependence ?F11.20 - Opioid dependence, uncomplicated (ICD-10) Chronic atrial fibrillation ?I48.20 - Chronic atrial fibrillation, unspecified (ICD-10) Depression ?F32.A - Depression, unspecified (ICD-10) Essential hypertension ?I10 - Essential (primary) hypertension (ICD-10) Generalized OA ?M15.9 - Polyosteoarthritis, unspecified (ICD-10) Durable power of deputy attorney general in chart Health care directive on file ?Z78.9 - Other specified health status (ICD-10) Closed right ankle fracture ?S82.891A - Other fracture of right lower leg, initial encounter for closed fracture (ICD-10) Osteoarthritis of right shoulder ?M19.011 - Primary osteoarthritis, right shoulder (ICD-10) Osteoarthritis of left shoulder ?M19.012 - Primary osteoarthritis, left shoulder (ICD-10) Right rotator cuff tear arthropathy ?M75.101 - Unspecified rotator cuff tear or rupture of right shoulder, not specified as traumatic (ICD-10) ?M12.811 - Other specific arthropathies, not elsewhere classified, right shoulder (ICD-10) Osteoarthritis of left knee ?M17.12 - Unilateral primary osteoarthritis, left knee (ICD-10) Chronic diastolic CHF (congestive heart failure), NYHA class 2 ?I50.32 - Chronic diastolic (congestive) heart failure (ICD-10) Parkinson disease ?G20 - Parkinson's disease (ICD-10) Venous stasis ulcers of both lower extremities ?I83.019 - Varicose veins of right lower extremity with ulcer of unspecified site (ICD-10) ?I83.029 - Varicose veins of left lower extremity with ulcer of unspecified site (ICD-10) ?L97.919 - Non-pressure chronic ulcer of unspecified part of right lower leg with unspecified severity (ICD-10) ?L97.929 - Non-pressure chronic ulcer of unspecified part of left lower leg with unspecified severity (ICD-10) Hypertension ?I10 - Essential (primary) hypertension (ICD-10) Urinary tract infection ?N39.0 - Urinary tract infection, site not specified (ICD-10) Ulcer of lower extremity ?L97.909 - Non-pressure chronic ulcer of unspecified part of unspecified lower leg with unspecified severity (ICD-10) Chest pain ?R07.9 - Chest pain, unspecified (ICD-10) Cellulitis of leg ?L03.119 - Cellulitis of unspecified part of limb (ICD-10) Atrial fibrillation ?I48.91 - Unspecified atrial fibrillation (ICD-10) Surgical History H/O excision of mass (09/21/00) ?Z98.890 - Other specified postprocedural states (ICD-10) 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 Lives at [place], [place]. No children. Nephew, Michi Chang, is her POA. Requests DNR/DNI resuscitation status. What is your current living situation?: I presently have a place to live Problems where you live: no known problems Problems where you live details: n/a In the past 12 months, utilities in danger of being shut off: no In past 12 months, lack of transportation kept you from medical appts, meetings, work, or getting things needed for daily living: no In the past 12 mos, have been you worried that your food would run out before you had money to buy more?: never true In the past 12 mos, the food you bought just didn't last and you didn't have money to buy more?: never true Highest level of school completed/degree received: Associate degree: academic program Smoking Status: Former smoker What tobacco products do you use: cigarettes Smoking quit date/years: >15 years ago Do you use any of these nicotine containing products: None Second hand tobacco smoke exposure: No How often do you have a drink containing alcohol: never AUDIT-C Alcohol total score: 0 Non-prescribed substance use: denies use Caffeine: Yes How often does anyone, including family, friends and others, physically hurt you : never How often does anyone, including family, friends and others, insult or talk down to you: never How often does anyone, including family, friends and others, threaten you with harm: never How often does anyone, including family, friends and others, scream or curse at you: never service: No Meds Home Medications and Allergies Home Medications Medication Instructions Recorded Confirmed Type warfarin 5 mg tablet 2 mg PO .UD 12/26/21 11/07/22 History carbidopa 25 mg-levodopa 100 mg 1 tab PO TID 08/07/22 11/08/22 History tablet gabapentin 100 mg capsule 100 mg PO TID 08/08/22 11/07/22 History cetirizine 10 mg tablet (24Hour 10 mg PO DAILY 11/07/22 11/07/22 History Allergy) nystatin 100,000 unit/gram topical 1 applic topical BID PRN 11/07/22 11/07/22 History powder fluoxetine 20 mg capsule 20 mg PO DAILY 11/08/22 11/08/22 History Home Medication Comments: Patient does not know her medications. Old medication lists are inconsistent. Unable to obtain a medication list from her assisted [facility] Allergies Allergy/AdvReac Type Severity Reaction Status Date / Time hydrochlorothiazide Allergy Verified 11/07/22 14:31 Sulfa (Sulfonamide Allergy Rash Verified 11/07/22 14:31 Antibiotics) Exam Narrative: Exam Narrative: She is alert and appears in no distress. She is oriented to her circumstances. Eyes normal. Oropharynx with some dental loss and small airway. Dry mucous membranes. Neck is supple without mass or adenopathy. Respirations with occasional rhonchi. No wheezing. Fair air exchange all lung pollock. Cardiovascular: S1, S2, 2/6 systolic murmur heard best at the right upper sternal border. Irregularly irregular. Abdomen: Bowel sounds active. Abdomen is soft without significant tenderness. She has mild erythema in the skin folds under her abdominal pannus. Upper extremities with intact motion and strength. Lower extremities with chronic venous stasis changes bilaterally. The left leg has an ulcer over the medial malleolus which is about 1 cm x 1 and 0.5 cm and is dry and not draining. The right leg up to the mid thigh on the posterior and medial aspects is markedly erythematous warm and tender. Right lower extremity without significant redness or tenderness, just venous stasis skin changes. Const: Vital Signs, click to edit/add: Vital Signs - 24 hr 05/18/23 19:58 05/18/23 21:23 05/18/23 21:30 Temperature 98.0 F Pulse Rate 72 68 Pulse Rate [Pulse Oximeter] 86 Respiratory Rate 16 Blood Pressure Blood Pressure [Ri ght Upper Arm] 124/67 Pulse Oximetry 96 83 L 90 Oxygen Delivery Me thod Room Air Oxygen Flow Rate 05/18/23 21:32 05/18/23 21:32 05/18/23 21:45 Temperature Pulse Rate 71 65 Pulse Rate [Pulse Oximeter] Respiratory Rate Blood Pressure 149/73 H Blood Pressure [Ri ght Upper Arm] Pulse Oximetry 83 L 100 100 Oxygen Delivery Me thod Nasal Cannula Oxygen Flow Rate 4 05/18/23 22:00 05/18/23 22:02 05/18/23 22:03 Temperature Pulse Rate 69 80 76 Pulse Rate [Pulse Oximeter] Respiratory Rate Blood Pressure 144/73 H Blood Pressure [Ri ght Upper Arm] Pulse Oximetry 99 100 99 Oxygen Delivery Me thod Oxygen Flow Rate Documenting provider has reviewed patient's vital signs: yes Hospitalist - H&P: Result Labs Labs: Short CBC 05/18/23 Range/Units 20:30 WBC 11.45 H (4.50-11.00) K/uL Hgb 12.4 (12.0-16.0) gm/dL Hct 38.6 (33.0-51.0) % Plt Count 213 (140-440) K/uL BMP 05/18/23 20:30 Sodium 133 L Potassium 2.4 L* Chloride 96 Carbon Dioxide 27 BUN 20 Creatinine 0.8 Glucose 129 H Calcium 8.1 L Assessment and Plan Assessment and plan (1) Acute on chronic respiratory failure with hypoxia: Problem comment: Chest x-ray is unremarkable. Monitor venous blood gas and O2 sats and respiratory effort. Recommend restarting CPAP. Likely has some chronic hypoxia from untreated sleep apnea Status: Acute (2) Acute hypokalemia: Problem comment: Replace and monitor. I suspect this is caused by her recent gastrointestinal illness with nausea vomiting and diarrhea. That appears to be resolved. Status: Acute (3) Obstructive sleep apnea: Problem comment: Moderately severe with apnea-hypopnea index of 55. Patient does not like using CPAP. Likely causing some chronic hypoxia without dyspnea Status: Acute (4) Cellulitis of left lower leg: Problem comment: Recurrent left lower lobe extremity cellulitis. Treat with Ancef. Status: Acute (5) Atrial fibrillation: Problem comment: On anticoagulation and rate control. Follow INR and rate control Status: Acute (6) Aortic stenosis: Problem comment: Echocardiogram in July of 2022 showed normal LV size with preserved ejection fraction of 60 65%. Mild aortic stenosis. Mild mitral regurgitation. [id number] tricuspid regurgitation. Normal pulmonary pressures. Status: Acute (7) Lymphedema: Problem comment: Bilateral venous stasis skin changes. Left medial malleolus skin ulcer appears stable and noninfected. Status: Acute (8) Morbid obesity: Problem comment: BMI 46.9 Status: Acute (9) Chronic pain: Problem comment: - osteoarthritis, takes oxycodone nightly. Likely this exacerbates her sleep apnea and hypoxia Status: Acute (10) Warfarin anticoagulation: Problem comment: -afib -daily INR, within therapeutic range between 2 and 3 Status: Acute (11) Gastroenteritis: Problem comment: Appears to have resolved. Monitor for symptoms Status: Acute Plan Patient is admitted to the hospital for evaluation management of hypoxic respiratory failure, hypokalemia, left leg cellulitis, weakness. Total Time Spent Total Time Spent: Total time spent today is 75 minutes, 50 minutes in coordination of care discussing with patient other providers ongoing evaluation management of hypoxia, hypokalemia, weakness, cellulitis
[2023-05-18 22:46] LABS: HCO3 VBG 33 mmol/L (21-28); PCO2 VBG 50 mmHG (40-50); PO2 VBG < 30.1 mmHG (25-47); pH VBG 7.426 (7.32-7.43)
[2023-05-18 22:51] LABS: Lactate* 1.3 mmol/L (0.5-1.9)
[2023-05-18] MEDS: CEFAZOLIN 1 GM in 0.9 % SODIUM CHLORIDE Mini-bag 100 ML IVPB (22:55)
[2023-05-18 23:05] LABS: INR 2.94 (0.91-1.10); Magnesium* 1.8 mg/dL (1.5-2.6)
[2023-05-18 23:14] LABS: NT Pro B Type NatriureticPept* 3700 pg/mL
[2023-05-18 23:18] LABS: Troponin I* < 0.01 ng/mL (0.01-0.04)
[2023-05-19] VITALS (10 sets, daily range): BP systolic 116–189; BP diastolic 63–88; PULSE 59–92; RESP 16–20; TEMP 36.7–37.1; O2SAT 92–97; BMI 45.1
[2023-05-19 05:38] LABS: Appearance Urine Clear (Clear); Bilirubin Urine Negative (Negative); Blood Urine Negative (Negative); Color Urine Yellow (Yellow); Glucose Urine Negative (Negative); Ketones Urine Negative (Negative); Leukocyte Esterase Urine Negative (Negative); Nitrite Urine Negative (Negative); Protein Urine Negative (Negative); Specific Gravity Urine 1.015 (1.000-1.030); Urobilinogen Urine 0.2 (0.2-1.0); pH Urine 7.5 (5.0-8.5)
[2023-05-19 06:19] LABS: HCO3 VBG 35 mmol/L (21-28); PCO2 VBG 52 mmHG (40-50); PO2 VBG < 30.1 mmHG (25-47); pH VBG 7.439 (7.32-7.43)
[2023-05-19 06:33] LABS: Basophils Absolute Auto 0.01 K/uL (0.00-0.30); Basophils Percent Auto 0.1 % (0.0-3.0); Eosinophils Absolute Auto 0.14 K/uL (0.00-0.50); Eosinophils Percent Auto 1.6 % (0.0-7.0); Hematocrit 37.7 % (33.0-51.0); Immature Granulocytes Abs Auto 0.04 K/uL (0.00-0.30); Immature Granulocytes Pct Auto 0.4 %; Mean Corpuscular HGB Conc 32 gm/dL (32-36); Mean Corpuscular Hemoglobin 32 pg (26-34); Mean Corpuscular Volume 100 fL (80-100); Monocytes Percent Auto 6.9 % (0.0-11.0); Platelet Count* 200 K/uL (140-440); RDW Coefficient of Variation % 13.1 % (11.5-15.5); Red Blood Count 3.76 m/uL (4.00-5.20)
[2023-05-19] MEDS: CEFAZOLIN 1 GM in 0.9 % SODIUM CHLORIDE Mini-bag 100 ML IVPB ×3 (06:35→22:07)
[2023-05-19 06:37] LABS: Slide Review Reflex No
[2023-05-19 06:45] LABS: Chloride* 96 mmol/L (96-114); Potassium* 3.8 mmol/L (3.6-5.1); Sodium* 135 mmol/L (135-149)
[2023-05-19 06:47] LABS: INR 2.63 (0.91-1.10); Prothrombin Time 30.1 Seconds
[2023-05-19 06:48] LABS: Anion Gap 6 mEq/L (7-15); Blood Urea Nitrogen* 19 mg/dL (7-30); Carbon Dioxide* 33 mmol/L (20-32); Creatinine* 0.8 mg/dL (0.5-1.5); Est. Creatinine Clearance* 29.54; Estimated Glomerular Filt Rate 72 ml/min
[2023-05-19 06:49] LABS: Calcium* 8.1 mg/dL (8.4-10.6); Glucose* 100 mg/dL (60-115)
[2023-05-19 07:12] LABS: D Dimer Quantitative* < 0.27 ug/ml (0.00-0.50)
--- NOTE | 2023-05-19 07:21 | PC.NURSE ---
End of shift: Patient admitted to unit at 2218 with dx weakness. Alert and oriented x 4. Pain to LLE reported, patient states pain is manageable without medication. Left medical calf ulcer with foam adhesive dressing, patient has homecare nurse who comes in for wound care and then patient does go to wound clinic for follow up. LLE redness noted from foot to mid thigh. Transfers with mod assist x 2 with pivot onto commode, patient incontinent of bladder and unable to void on commode. Lever Operator straight cath patient for UA, tolerated well. O2 @1L per NC, able to maintain sats >88%.
[2023-05-19] MEDS: POTASSIUM CHLORIDE 10 MEQ CAPSULE ER 20 MEQ PO (08:50)
[2023-05-19] MEDS: FLUOXETINE HCL 20 MG CAPSULE PO (08:50)
[2023-05-19] MEDS: METOPROLOL TARTRATE 25 MG TABLET PO ×2 (08:51→20:27)
[2023-05-19] MEDS: LOSARTAN POTASSIUM 50 MG TABLET PO (08:51)
[2023-05-19] MEDS: GABAPENTIN 100 MG CAPSULE PO ×3 (08:51→20:27)
[2023-05-19] MEDS: ONDANSETRON 2 MG/ML inj 4 MG IVP (15:38)
--- NOTE | 2023-05-19 15:57 | P.IMPN_ITS ---
Progress Note: A&P Assessment and plan (1) Gastroenteritis: Problem details: Appears to have resolved. Monitor for symptoms Status: Acute (2) Physical debility: Problem details: PT/OT Status: Acute (3) Aortic stenosis: Problem details: Echocardiogram in July of 2022 showed normal LV size with preserved ejection fraction of 60 65%. Mild aortic stenosis. Mild mitral regurgitation. [id number] tricuspid regurgitation. Normal pulmonary pressures. Status: Acute (4) Morbid obesity: Problem details: BMI 46.9 Status: Acute (5) Lymphedema: Problem details: Bilateral venous stasis skin changes. Left medial malleolus skin ulcer appears stable and noninfected. Follows with wound clinic, due for visit Thursday Status: Acute (6) Chronic pain: Problem details: - osteoarthritis, takes oxycodone nightly. Likely this exacerbates her sleep apnea and hypoxia Status: Acute (7) Warfarin anticoagulation: Problem details: -afib -daily INR, within therapeutic range between 2 and 3 Status: Acute (8) Obstructive sleep apnea: Problem details: Moderately severe with apnea-hypopnea index of 55. Patient does not like using CPAP. Likely causing some chronic hypoxia without dyspnea Status: Acute (9) Atrial fibrillation: Problem details: On anticoagulation and rate control. Follow INR and rate control Status: Acute (10) Cellulitis of left lower leg: Problem details: Recurrent left lower lobe extremity cellulitis. Treat with Ancef. Status: Acute (11) Acute hypokalemia: Problem details: Replace and monitor. I suspect this is caused by her recent gastrointestinal illness with nausea vomiting and diarrhea. That appears to be resolved. Status: Acute (12) Hypoxia: Problem details: Patient has chronic hypoxia primarily due to untreated sleep apnea. O2 sats in the low 80s on room air in the emergency department. May also have an acute exacerbation of her hypoxia. Status: Acute Subjective Date Seen: 05/19/23 Interval history: Patient is seen and examined. She is feeling a little better than when she presented. She notes some pain in the LLE with position changes/movement. No new complaints Exam: General: well appearing, NAD HEENT: Left eye ptosis Resp: Comfortable, CTAB CV: IRR Abd: Obese, nontender Extrem: Bilateral DEBORAH with chronic venous stasis changes Skin: Two eschars on LLE wounds, chronic venous stasis and now surrounding erythema of LLE extending to foot and medial thigh Exam Const: Vital Signs, click to edit/add: Vital Signs - 24 hr 05/18/23 19:58 05/18/23 21:23 05/18/23 21:30 Temperature 98.0 F Pulse Rate 72 68 Pulse Rate [Pulse Oximeter] 86 Pulse Rate [Right Pulse Oximeter] Respiratory Rate 16 Blood Pressure Blood Pressure [Ri ght Arm] Blood Pressure [Ri ght Upper Arm] 124/67 Pulse Oximetry 96 83 L 90 Oxygen Delivery Me thod Room Air Oxygen Flow Rate 05/18/23 21:32 05/18/23 21:32 05/18/23 21:45 Temperature Pulse Rate 71 65 Pulse Rate [Pulse Oximeter] Pulse Rate [Right Pulse Oximeter] Respiratory Rate Blood Pressure 149/73 H Blood Pressure [Ri ght Arm] Blood Pressure [Ri ght Upper Arm] Pulse Oximetry 83 L 100 100 Oxygen Delivery Me thod Nasal Cannula Oxygen Flow Rate 4 05/18/23 22:00 05/18/23 22:02 05/18/23 22:03 Temperature Pulse Rate 69 80 76 Pulse Rate [Pulse Oximeter] Pulse Rate [Right Pulse Oximeter] Respiratory Rate Blood Pressure 144/73 H Blood Pressure [Ri ght Arm] Blood Pressure [Ri ght Upper Arm] Pulse Oximetry 99 100 99 Oxygen Delivery Me thod Oxygen Flow Rate 05/18/23 22:20 05/18/23 22:20 05/18/23 22:23 Temperature 98.4 F Pulse Rate Pulse Rate [Pulse Oximeter] Pulse Rate [Right Pulse Oximeter] 78 Respiratory Rate 16 16 Blood Pressure Blood Pressure [Ri ght Arm] 137/59 L Blood Pressure [Ri ght Upper Arm] Pulse Oximetry 98 98 98 Oxygen Delivery Me thod Nasal Cannula Nasal Cannula Oxygen Flow Rate 1 1 05/18/23 23:00 05/18/23 23:00 05/18/23 23:00 Temperature Pulse Rate 71 Pulse Rate [Pulse Oximeter] Pulse Rate [Right Pulse Oximeter] 78 Respiratory Rate 16 Blood Pressure Blood Pressure [Ri ght Arm] Blood Pressure [Ri ght Upper Arm] Pulse Oximetry 98 Oxygen Delivery Me thod Nasal Cannula Oxygen Flow Rate 1 05/18/23 23:00 05/19/23 03:00 05/19/23 07:49 Temperature 98.4 F 98.7 F Pulse Rate 80 Pulse Rate [Pulse Oximeter] Pulse Rate [Right Pulse Oximeter] 78 92 Respiratory Rate 16 18 Blood Pressure Blood Pressure [Ri ght Arm] 137/59 L 132/63 Blood Pressure [Ri ght Upper Arm] Pulse Oximetry 98 93 Oxygen Delivery Me thod Nasal Cannula Nasal Cannula Oxygen Flow Rate 1 1 05/19/23 08:09 05/19/23 08:09 05/19/23 08:09 Temperature 98.6 F Pulse Rate Pulse Rate [Pulse Oximeter] Pulse Rate [Right Pulse Oximeter] 64 64 Respiratory Rate 20 20 20 Blood Pressure Blood Pressure [Ri ght Arm] 140/88 H Blood Pressure [Ri ght Upper Arm] Pulse Oximetry 97 97 Oxygen Delivery Me thod Nasal Cannula Nasal Cannula Oxygen Flow Rate 1 1 05/19/23 11:00 Temperature 98.2 F Pulse Rate Pulse Rate [Pulse Oximeter] Pulse Rate [Right Pulse Oximeter] 72 Respiratory Rate 20 Blood Pressure Blood Pressure [Ri ght Arm] 116/81 Blood Pressure [Ri ght Upper Arm] Pulse Oximetry 93 Oxygen Delivery Me thod Room Air Oxygen Flow Rate Labs Labs: Laboratory Results - last 24 hr 05/18/23 05/18/23 05/18/23 05:20 20:30 22:40 WBC 11.45 H RBC 3.85 L Hgb 12.4 Hct 38.6 MCV 100 MCH 32 MCHC 32 RDW Coeff of Mandeep 13.0 Plt Count 213 Neut % (Auto) 91.7 H Lymph % (Auto) 2.2 L [place] % (Auto) 5.2 Eos % (Auto) 0.5 Baso % (Auto) 0.1 Neut # (Auto) 10.50 H Lymph # (Auto) 0.30 L [place] # (Auto) 0.60 Eos # (Auto) 0.10 Baso # (Auto) 0.00 Abs Immat Gran (auto) 0.00 Imm/Tot Granulo (auto) 0.3 INR 2.94 H D-Dimer Quant (PE/DVT) < 0.27 VBG pH 7.426 VBG pCO2 50 VBG pO2 < 30.1 VBG HCO3 33 H Sodium 133 L Potassium 2.4 L* Chloride 96 Carbon Dioxide 27 Anion Gap 10 BUN 20 Creatinine 0.8 Estimated Creat Clear Estimated GFR 72 Glucose 129 H Lactate 1.3 Calcium 8.1 L Magnesium 1.8 Troponin I < 0.01 L NT-Pro-B Natriuret Pep 3700 Urine Color Yellow Urine Appearance Clear Urine pH 7.5 Ur Specific [place] 1.015 Urine Protein Negative Urine Glucose (UA) Negative Urine Ketones Negative Urine Blood Negative Urine Nitrite Negative Urine Bilirubin Negative Urine Urobilinogen 0.2 Ur Leukocyte Esterase Negative SARS-CoV-2 (PCR) Negative SARS-CoV-2 Influenza Type A (PCR) Negative PCR FLU A Influenza Type B (PCR) Negative PCR FLU B RSV (PCR) Negative PCR RSV 05/19/23 06:07 WBC 8.90 RBC 3.76 L Hgb 12.0 Hct 37.7 MCV 100 MCH 32 MCHC 32 RDW Coeff of Mandeep 13.1 Plt Count 200 Neut % (Auto) 88.0 H Lymph % (Auto) 3.0 L [place] % (Auto) 6.9 Eos % (Auto) 1.6 Baso % (Auto) 0.1 Neut # (Auto) 7.80 H Lymph # (Auto) 0.30 L [place] # (Auto) 0.60 Eos # (Auto) 0.14 Baso # (Auto) 0.01 Abs Immat Gran (auto) 0.04 Imm/Tot Granulo (auto) 0.4 INR 2.63 H D-Dimer Quant (PE/DVT) VBG pH 7.439 H VBG pCO2 52 H VBG pO2 < 30.1 VBG HCO3 35 H Sodium 135 Potassium 3.8 Chloride 96 Carbon Dioxide 33 H Anion Gap 6 L BUN 19 Creatinine 0.8 Estimated Creat Clear 29.54 Estimated GFR 72 Glucose 100 Lactate Calcium 8.1 L Magnesium Troponin I NT-Pro-B Natriuret Pep Urine Color Urine Appearance Urine pH Ur Specific [place] Urine Protein Urine Glucose (UA) Urine Ketones Urine Blood Urine Nitrite Urine Bilirubin Urine Urobilinogen Ur Leukocyte Esterase SARS-CoV-2 (PCR) Influenza Type A (PCR) Influenza Type B (PCR) RSV (PCR)
[2023-05-19] MEDS: WARFARIN 3 MG TABLET PO (18:05)
[2023-05-19] MEDS: CARBIDOPA-LEVODOPA 25-100 TABLET 1 TAB PO (18:05)
--- NOTE | 2023-05-19 18:36 | PC.NURSE ---
End of shift: Assumed care of pt at 1500. Pt is A&O, afebrile and VSS. She?s maintained her O2 sats on RA all day. TELE reads Leslie ELLIOTT. Pt is Ax1 to C d/t weakness. LLE cellulitis noted and left ankle venous stasis ulcers x2 were DYNAMOMETER TUNER. Pt sees [facility] 3x a week for dressing changes. Per patient instruction, adjusto writer operator applied: Vashe wound cleanser, telfa pad, kerlix wrap. This is not the exact dressing they apply in [facility] (betadine, ABD pad, Tubigrip). PIV in left AC SL and C/D/I. Pt c/o mild nausea after lunch so PRN Zofran was given @ 1535 and this resolved. INR 2.63 this AM > 3mg Coumadin given this evening. PRN Nystatin for erythema under breast folds. Pt is from [facility] and plans on discharging back there when medically stable. ?
[2023-05-19] MEDS: ACETAMINOPHEN 325 MG TABLET 975 MG PO (20:27)
[2023-05-19] MEDS: SODIUM CHLORIDE 0.9 % (FLUSH) 10 ML SYRINGE 5 ML IVF (20:28)
[2023-05-19] MEDS: OXYCODONE 5 MG TABLET 2.5 MG PO (20:32)
[2023-05-20] VITALS (7 sets, daily range): BP systolic 117–206; BP diastolic 80–127; PULSE 60–84; RESP 16–20; TEMP 36.6–36.9; O2SAT 90–96
--- NOTE | 2023-05-20 05:07 | PC.NURSE ---
Pt rested well this night. Had to be placed on 1L NC to maintain sats in 90s only when sleeping. A2 to bedside commode and chair. Left ankle gauze wrapped CDI. Pleasant and cooperative.
[2023-05-20] MEDS: CEFAZOLIN 1 GM in 0.9 % SODIUM CHLORIDE Mini-bag 100 ML IVPB ×3 (06:27→22:51)
[2023-05-20] MEDS: SODIUM CHLORIDE 0.9 % (FLUSH) 10 ML SYRINGE 5 ML IVF ×2 (06:30→20:26)
[2023-05-20 06:47] LABS: HCO3 VBG 30 mmol/L (21-28); PCO2 VBG 48 mmHG (40-50); PO2 VBG 37.4 mmHG (25-47); pH VBG 7.404 (7.32-7.43)
[2023-05-20 06:56] LABS: Basophils Absolute Auto 0.01 K/uL (0.00-0.30); Basophils Percent Auto 0.1 % (0.0-3.0); Eosinophils Absolute Auto 0.25 K/uL (0.00-0.50); Eosinophils Percent Auto 2.8 % (0.0-7.0); Hematocrit 41.9 % (33.0-51.0); Hemoglobin* 13.2 gm/dL (12.0-16.0); Immature Granulocytes Abs Auto 0.04 K/uL (0.00-0.30); Immature Granulocytes Pct Auto 0.4 %; Mean Corpuscular HGB Conc 32 gm/dL (32-36); Mean Corpuscular Hemoglobin 32 pg (26-34); Mean Corpuscular Volume 102 fL (80-100); Monocytes Percent Auto 5.5 % (0.0-11.0); Neutrophils Percent Auto 88.2 % (42.0-72.0); Platelet Count* 236 K/uL (140-440); RDW Coefficient of Variation % 13.1 % (11.5-15.5); Red Blood Count 4.12 m/uL (4.00-5.20); White Blood Count* 8.94 K/uL (4.50-11.00)
[2023-05-20 07:00] LABS: Slide Review Reflex No
[2023-05-20 07:08] LABS: Chloride* 100 mmol/L (96-114); Potassium* 4.1 mmol/L (3.6-5.1); Sodium* 137 mmol/L (135-149)
[2023-05-20 07:11] LABS: Anion Gap 6 mEq/L (7-15); Carbon Dioxide* 31 mmol/L (20-32); Creatinine* 0.7 mg/dL (0.5-1.5); Est. Creatinine Clearance* 29.54; Estimated Glomerular Filt Rate 85 ml/min
[2023-05-20 07:12] LABS: Blood Urea Nitrogen* 22 mg/dL (7-30); Calcium* 8.9 mg/dL (8.4-10.6); Glucose* 123 mg/dL (60-115)
[2023-05-20 07:22] LABS: INR 2.02 (0.91-1.10); Prothrombin Time 24.3 Seconds
[2023-05-20] MEDS: CARBIDOPA-LEVODOPA 25-100 TABLET 1 TAB PO ×3 (08:40→17:50)
[2023-05-20] MEDS: ACETAMINOPHEN 325 MG TABLET 975 MG PO ×3 (08:40→20:26)
[2023-05-20] MEDS: POTASSIUM CHLORIDE 10 MEQ CAPSULE ER 20 MEQ PO ×2 (08:40→08:41)
[2023-05-20] MEDS: FUROSEMIDE 20 MG TABLET 60 MG PO (08:41)
[2023-05-20] MEDS: GABAPENTIN 100 MG CAPSULE PO ×3 (08:41→20:27)
[2023-05-20] MEDS: FLUOXETINE HCL 10 MG CAPSULE PO (08:41)
[2023-05-20] MEDS: FLUOXETINE HCL 20 MG CAPSULE PO (08:41)
[2023-05-20] MEDS: LOSARTAN POTASSIUM 50 MG TABLET PO ×2 (08:41→20:27)
[2023-05-20] MEDS: METOPROLOL TARTRATE 25 MG TABLET PO ×2 (08:41→20:27)
--- NOTE | 2023-05-20 11:48 | PM.IMPN1 ---
Progress Note: A&P Assessment and plan (1) Cellulitis of left lower leg: Problem details: Recurrent left lower extremity cellulitis. Patient has chronic venous stasis changes, but now erythema spreading up medial leg and involving left foot. Started empirically on Ancef and improving -Continue Ancef for at least 1 more day, then consider transition to PO Status: Acute (2) Wound of lower extremity: Problem details: Follows with wound clinic. Although wounds are within cellulitis perimeter, they do not appear grossly purulent or infected. However, eschars were not debrided. -Wound instructions obtained -Wound clinic nurse to see Thursday Status: Acute (3) Hypoxia: Problem details: Patient has chronic hypoxia primarily due to untreated sleep apnea. O2 sats in the low 80s on room air in the emergency department. May also have an acute exacerbation of her hypoxia. O2 needs improving, but still on 0.5lpm Status: Acute (4) Gastroenteritis: Problem details: Appears to have resolved. Monitor for symptoms Status: Acute (5) Acute hypokalemia: Problem details: Replaced and monitoring. I suspect this is caused by her recent gastrointestinal illness with nausea vomiting and diarrhea. That appears to be resolved. Status: Acute (6) Hypertension: Problem details: Patient has hypertension at baseline, she reports typically quite well controlled. Currently significantly hypertensive, asymptomatic -Continue home lasix and metoprolol -Increase home losartan to 50mg BID -Hydralazine IV available for extreme hypertension Status: Acute (7) Physical debility: Problem details: PT/OT Status: Acute (8) Aortic stenosis: Problem details: Echocardiogram in July of 2022 showed normal LV size with preserved ejection fraction of 60 65%. Mild aortic stenosis. Mild mitral regurgitation. [id number] tricuspid regurgitation. Normal pulmonary pressures. Status: Acute (9) Morbid obesity: Problem details: BMI 46.9 Status: Acute (10) Lymphedema: Problem details: Bilateral venous stasis skin changes. Left medial malleolus skin ulcer appears stable and noninfected. Follows with wound clinic, due for visit Thursday Status: Acute (11) Chronic pain: Problem details: - osteoarthritis, takes oxycodone nightly. Likely this exacerbates her sleep apnea and hypoxia Status: Acute (12) Warfarin anticoagulation: Problem details: -afib -daily INR, within therapeutic range between 2 and 3 Status: Acute (13) Obstructive sleep apnea: Problem details: Moderately severe with apnea-hypopnea index of 55. Patient does not like using CPAP. Likely causing some chronic hypoxia without dyspnea Status: Acute (14) Atrial fibrillation: Problem details: On anticoagulation and rate control. Follow INR and rate control Status: Acute Plan Cellulitis appears to be improving. She has now had 36+ hours of IV antibiotics. No recurrence of her GI symptoms. I suspect if she continues to improve, she can transition to oral antibiotics 05/21/23. PT and OT are assisting with her generalized weakness. Dispo depends on her mobility. Subjective Date Seen: 05/20/23 Interval history: Patient is seen and examined. She continues to feel like she is improving, but still weak and quite tired. No new complaints. Stools have slowed. BP has been quite high today, but she denies PRADO, CP, vision changes Exam: General: well appearing, NAD HEENT: Left eye ptosis (chronic) Resp: Comfortable, CTAB CV: IRR Abd: Obese, nontender Extrem: Bilateral DEBORAH with chronic venous stasis changes Skin: Two eschars on LLE wounds wrapped in kerlix, chronic venous stasis and surrounding erythema of LLE extending to foot and medial thigh, improved from prior exam Exam Const: Vital Signs, click to edit/add: Vital Signs - 24 hr 05/19/23 15:00 05/19/23 15:00 05/19/23 15:00 Temperature Pulse Rate 65 Pulse Rate [Right Pulse Oximeter] 59 L Respiratory Rate 18 18 Blood Pressure [Le ft Arm] Blood Pressure [Ri ght Arm] Pulse Oximetry 97 Oxygen Delivery Me thod Room Air Oxygen Flow Rate 05/19/23 15:00 05/19/23 19:30 05/19/23 20:07 Temperature 98.1 F 98.1 F Pulse Rate 77 Pulse Rate [Right Pulse Oximeter] 59 L 76 Respiratory Rate 18 18 Blood Pressure [Le ft Arm] 153/73 H Blood Pressure [Ri ght Arm] 189/86 H Pulse Oximetry 97 95 Oxygen Delivery Me thod Room Air Room Air Oxygen Flow Rate 0 05/19/23 20:27 05/19/23 22:51 05/19/23 22:53 Temperature 98.1 F 98.5 F Pulse Rate Pulse Rate [Right Pulse Oximeter] 76 76 Respiratory Rate 16 16 Blood Pressure [Le ft Arm] Blood Pressure [Ri ght Arm] 168/71 H Pulse Oximetry 92 Oxygen Delivery Me thod Room Air Oxygen Flow Rate 05/19/23 22:53 05/20/23 02:36 05/20/23 07:00 Temperature 98.4 F Pulse Rate Pulse Rate [Right Pulse Oximeter] 78 Respiratory Rate 16 16 Blood Pressure [Le ft Arm] 172/90 H Blood Pressure [Ri ght Arm] Pulse Oximetry 92 90 93 Oxygen Delivery Me thod Room Air Nasal Cannula Nasal Cannula Oxygen Flow Rate 0 1 0.5 05/20/23 07:00 05/20/23 07:00 05/20/23 07:00 Temperature 97.9 F Pulse Rate 66 Pulse Rate [Right Pulse Oximeter] 84 84 Respiratory Rate 20 20 Blood Pressure [Le ft Arm] 206/108 H Blood Pressure [Ri ght Arm] Pulse Oximetry 93 Oxygen Delivery Me thod Nasal Cannula Oxygen Flow Rate 0.5 Labs Labs: Laboratory Results - last 24 hr 05/20/23 06:30 WBC 8.94 RBC 4.12 Hgb 13.2 Hct 41.9 MCV 102 H MCH 32 MCHC 32 RDW Coeff of Mandeep 13.1 Plt Count 236 Neut % (Auto) 88.2 H Lymph % (Auto) 3.0 L [place] % (Auto) 5.5 Eos % (Auto) 2.8 Baso % (Auto) 0.1 Neut # (Auto) 7.90 H Lymph # (Auto) 0.30 L [place] # (Auto) 0.50 Eos # (Auto) 0.25 Baso # (Auto) 0.01 Abs Immat Gran (auto) 0.04 Imm/Tot Granulo (auto) 0.4 INR 2.02 H VBG pH 7.404 VBG pCO2 48 VBG pO2 37.4 VBG HCO3 30 H Sodium 137 Potassium 4.1 Chloride 100 Carbon Dioxide 31 Anion Gap 6 L BUN 22 Creatinine 0.7 Estimated Creat Clear 29.54 Estimated GFR 85 Glucose 123 H Calcium 8.9
[2023-05-20] MEDS: HYDRALAZINE HCL 20 MG/ML inj 10 MG IVP (12:57)
--- NOTE | 2023-05-20 15:26 | PC.NURSE ---
End of Shift Note: Patient has been up in the chair most of this shift. She has been inc of urine x2 this shift and was able to ambulate to the BR with PT x1 and voided. she did complain of shoulder pain which she received scheduled tyl and that helped. she also had high blood pressure in which she received IV hydralazine and b/p came down see charting. Will continue to monitor until next shift arrives.
--- NOTE | 2023-05-20 16:19 | PC.SOCIAL ---
Discharge planning: Received call from Nikole at [facility] stating they have an available bed for pt if she needs more care than she was receiving at [facility] when she is ready for discharge. waste water worker to follow up as needed.
[2023-05-20] MEDS: WARFARIN 2 MG TABLET 4 MG PO (17:50)
[2023-05-20] MEDS: OXYCODONE 5 MG TABLET 2.5 MG PO (20:30)
[2023-05-21 04:25] VITALS: BP 173/123; PULSE 83; RESP 18; TEMP 37.1; O2SAT 92
[2023-05-21] MEDS: OXYCODONE 5 MG TABLET 2.5 MG PO (04:36)
[2023-05-21 06:19] LABS: HCO3 VBG 30 mmol/L (21-28); PCO2 VBG 46 mmHG (40-50); PO2 VBG 41.5 mmHG (25-47); pH VBG 7.425 (7.32-7.43)
[2023-05-21] MEDS: CEFAZOLIN 1 GM in 0.9 % SODIUM CHLORIDE Mini-bag 100 ML IVPB (06:22)
[2023-05-21 06:27] LABS: Basophils Absolute Auto 0.01 K/uL (0.00-0.30); Basophils Percent Auto 0.1 % (0.0-3.0); Eosinophils Absolute Auto 0.14 K/uL (0.00-0.50); Eosinophils Percent Auto 1.7 % (0.0-7.0); Hematocrit 38.2 % (33.0-51.0); Immature Granulocytes Abs Auto 0.02 K/uL (0.00-0.30); Immature Granulocytes Pct Auto 0.2 %; Lymphocytes Percent Auto 2.2 % (20-44); Mean Corpuscular HGB Conc 31 gm/dL (32-36); Mean Corpuscular Hemoglobin 32 pg (26-34); Mean Corpuscular Volume 101 fL (80-100); Monocytes Percent Auto 5.7 % (0.0-11.0); Neutrophils Percent Auto 90.1 % (42.0-72.0); Platelet Count* 223 K/uL (140-440); Red Blood Count 3.78 m/uL (4.00-5.20); White Blood Count* 8.35 K/uL (4.50-11.00)
[2023-05-21 06:32] LABS: Slide Review Reflex No
[2023-05-21 06:47] LABS: Chloride* 100 mmol/L (96-114)
[2023-05-21 06:48] LABS: Potassium* 4.3 mmol/L (3.6-5.1); Sodium* 134 mmol/L (135-149)
[2023-05-21 06:50] LABS: Creatinine* 0.6 mg/dL (0.5-1.5); Est. Creatinine Clearance* 29.54; Estimated Glomerular Filt Rate 88 ml/min
[2023-05-21 06:51] LABS: Anion Gap 4 mEq/L (7-15); Blood Urea Nitrogen* 18 mg/dL (7-30); Calcium* 8.8 mg/dL (8.4-10.6); Carbon Dioxide* 30 mmol/L (20-32); Glucose* 110 mg/dL (60-115)
[2023-05-21 07:00] VITALS: BP 174/115; PULSE 88; PULSE 92; RESP 20; TEMP 36.3; O2SAT 94; O2SAT 96
[2023-05-21 07:10] LABS: INR 1.82 (0.91-1.10); Prothrombin Time 22.4 Seconds
[2023-05-21] MEDS: METOPROLOL TARTRATE 25 MG TABLET PO (07:50)
[2023-05-21] MEDS: CARBIDOPA-LEVODOPA 25-100 TABLET 1 TAB PO ×2 (07:50→11:23)
[2023-05-21] MEDS: LOSARTAN POTASSIUM 50 MG TABLET PO (07:51)
[2023-05-21] MEDS: POTASSIUM CHLORIDE 10 MEQ CAPSULE ER 20 MEQ PO (07:51)
[2023-05-21] MEDS: FLUOXETINE HCL 10 MG CAPSULE PO (07:51)
[2023-05-21] MEDS: FUROSEMIDE 20 MG TABLET 60 MG PO (07:52)
[2023-05-21] MEDS: GABAPENTIN 100 MG CAPSULE PO (07:52)
[2023-05-21] MEDS: ACETAMINOPHEN 325 MG TABLET 975 MG PO (07:52)
[2023-05-21] MEDS: SODIUM CHLORIDE 0.9 % (FLUSH) 10 ML SYRINGE 5 ML IVF (07:53)
[2023-05-21] MEDS: FLUOXETINE HCL 20 MG CAPSULE PO (07:56)
--- NOTE | 2023-05-21 08:04 | PC.NURSE ---
Nursing note, care provided [id number]: Pt alert and oriented, pleasant and cooperative. BP elevated. Pain to neck and back, rating 7/10 PRN Oxycodone 2.5mg admin, effective. Pt up to bathroom Ax1 w/ walker, voided this shift, brief changed PRN as well. IV abx admin no issue. Pt has call light within reach and able to use appropriately.
[2023-05-21 08:36] VITALS: BP 141/86; PULSE 88
--- NOTE | 2023-05-21 09:31 | P.DS_ITS ---
DS: Providers Provider Date Seen: 05/21/23 Date of admission: 05/18/23 22:21 Primary care physician: Sofia Guerrero MD Admitting Clinician: Atilio Cote MD Consults: OT, PT, Wound Care Attending Physician on discharge: Deepali Martinez MD Date of Discharge: 05/21/23 DS: Diagnosis Discharge Diagnosis (1) Cellulitis of left lower leg: Status: Acute Problem details: - recurrent LLE cellulitis in the setting of chronic venous stasis changes - treated with IV Ancef during hospital stay with improvement - home on oral Keflex (2) Wound of lower extremity: Status: Acute Problem details: - Follows with wound clinic (3) Hypoxia: Status: Acute Problem details: - likely has untreated CRISTY - hypoxia resolved during stay, stable on RA upon discharge (4) Gastroenteritis: Status: Acute Problem details: - resolved on hospital day 1, tolerating po intake upon discharge (5) Acute hypokalemia: Status: Acute Problem details: - resolved during stay, normal upon discharge with no recurrent vomiting or diarrhea (6) Hypertension: Status: Acute Problem details: - blood pressures higher than age appropriate baseline during stay with mild headache, improved with increased dose of Losartan - Continue home lasix and metoprolol - Increase home losartan from 50mg Qd --> 50mg BID, will continue this upon discharge (7) Physical debility: Status: Acute Problem details: - followed by therapies during stay (8) Aortic stenosis: Status: Acute Problem details: - TTE in July 2022: normal LV size with preserved EF of 60-65%, mild , mild MR. [id number] tricuspid regurgitation, normal pulmonary pressures (9) Lymphedema: Status: Acute Problem details: - Bilateral venous stasis skin changes. Left medial malleolus skin ulcer appears stable and noninfected. Follows with wound clinic, appt scheduled (10) Chronic pain: Status: Acute Problem details: - osteoarthritis, takes oxycodone nightly. Likely this exacerbates her sleep apnea and hypoxia (11) Warfarin anticoagulation: Status: Acute Problem details: -afib -daily INR, within therapeutic range between 2 and 3 (12) Obstructive sleep apnea: Status: Acute Problem details: - moderately severe with apnea-hypopnea index of 55. Patient does not like using CPAP. Likely causing some chronic hypoxia without dyspnea (13) Atrial fibrillation: Status: Acute Problem details: - rate controlled with Metoprolol, Anticoagulated with warfarin (14) Parkinson disease: Status: Acute Problem details: - mildly progressive Parkinson's disease, treated with Sinemet - follows with Dr. 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 She was noted to have a flare of cellulitis over area of chronic venous stasis on LLE, treated with IV Ancef and improved during stay. Therapies followed, did not identify any additional needs upon discharge, and patient requesting discharge home on 05/20. Comorbidities with details noted above, generally stable. Her BP was elevated, age-appropriate control achieved with INCREASED dose of Losartan from 50mg daily --> 50mg BID. She will discharge home on course of oral Keflex with PCP f/u. Status at Discharge Functional status at discharge: uses cane/walker Overall status at discharge: patient is progressing back to baseline Time Spent with Patient Time attestation: Total time spent providing and/or coordinating discharge services: Time spent: Greater than 30 minutes Specific discharge activities: Medication reconciliation, collaboration with multidisciplinary care team, patient education Exam Narrative: Exam Narrative: GEN: Alert and oriented, sitting comfortably in bedside chair HEENT: L ptosis (chronic and stable from childhood injury) EOMIs bilaterally, no scleral icterus CV: Rate controlled atrial fibrillation, systolic ejection murmur heard best at LSB R: LCTA bilaterally without concerning wheezing, air movement adequate Ext: Erythema of LLE c/w known PVD, small central ulceration without any purulent drainage or concerning features, no crepitus, tolerates palpation Skin: No other concerning skin lesions or rashes on exposed skin Neuro: Tremor of RUE, c/w Parkinson history Psych: Appropriate Const: Vital Signs, click to edit/add: Vital Signs - 24 hr 05/20/23 11:00 05/20/23 13:50 05/20/23 15:00 Temperature 97.9 F 98.1 F Pulse Rate Pulse Rate [Right Pulse Oximeter] 73 66 70 Respiratory Rate 20 20 Blood Pressure [Le ft Arm] 180/96 H 117/82 Blood Pressure [Ri ght Arm] 182/127 H Pulse Oximetry 96 94 94 Oxygen Delivery Me thod Nasal Cannula Nasal Cannula Room Air Nasal Can nula Oxygen Flow Rate 1 0.5 05/20/23 15:00 05/20/23 15:00 05/20/23 15:00 Temperature Pulse Rate 60 Pulse Rate [Right Pulse Oximeter] 70 Respiratory Rate 20 20 Blood Pressure [Le ft Arm] Blood Pressure [Ri ght Arm] Pulse Oximetry 94 Oxygen Delivery Me thod Room Air Nasal [place] Oxygen Flow Rate 0.5 05/20/23 19:00 05/20/23 23:00 05/20/23 23:00 Temperature 98 F Pulse Rate 74 Pulse Rate [Right Pulse Oximeter] 74 80 Respiratory Rate 18 16 Blood Pressure [Le ft Arm] Blood Pressure [Ri ght Arm] 172/80 H Pulse Oximetry 93 Oxygen Delivery Me thod Room Air Nasal [place] Oxygen Flow Rate 0.5 05/20/23 23:00 05/20/23 23:00 05/21/23 04:25 Temperature 98.1 F 98.7 F Pulse Rate Pulse Rate [Right Pulse Oximeter] 80 83 Respiratory Rate 18 16 18 Blood Pressure [Le ft Arm] Blood Pressure [Ri ght Arm] 180/115 H 173/123 H Pulse Oximetry 92 92 92 Oxygen Delivery Me thod Nasal Cannula Nasal Cannula Nasal Cannula Oxygen Flow Rate 0.5 0.5 0.5 05/21/23 07:00 05/21/23 07:00 05/21/23 08:36 Temperature 97.4 F L Pulse Rate Pulse Rate [Right Pulse Oximeter] 92 88 Respiratory Rate 20 Blood Pressure [Le ft Arm] 174/115 H 141/86 H Blood Pressure [Ri ght Arm] Pulse Oximetry 94 96 Oxygen Delivery Me thod Room Air Room Air Oxygen Flow Rate DS: Data Data Completed and Pending Completed studies during hospitalization: Procedures Introduction of Other Gas into Respiratory Tract, Via Natural or Artificial Open ing (11/07/22) Labs on day of discharge: Labs from last 24 hours 05/21/23 06:05 WBC 8.35 RBC 3.78 L Hgb 12.0 Hct 38.2 MCV 101 H MCH 32 MCHC 31 L RDW Coeff of Mandeep 13.0 Plt Count 223 Neut % (Auto) 90.1 H Lymph % (Auto) 2.2 L [place] % (Auto) 5.7 Eos % (Auto) 1.7 Baso % (Auto) 0.1 Neut # (Auto) 7.50 H Lymph # (Auto) 0.20 L [place] # (Auto) 0.50 Eos # (Auto) 0.14 Baso # (Auto) 0.01 Abs Immat Gran (auto) 0.02 Imm/Tot Granulo (auto) 0.2 INR 1.82 H VBG pH 7.425 VBG pCO2 46 VBG pO2 41.5 VBG HCO3 30 H Sodium 134 L Potassium 4.3 Chloride 100 Carbon Dioxide 30 Anion Gap 4 L BUN 18 Creatinine 0.6 Estimated Creat Clear 29.54 Estimated GFR 88 Glucose 110 Calcium 8.8 Discharge Plan Discharge Disposition: Home, Self-Care Date of Admission: 05/18/23 22:21 Attending Provider on Discharge: Deepali Martinez Consulting Providers: Vianca Villalpando Primary Care Provider: Sofia Guerrero Condition: Unchanged Anticipated Discharge Date/Time: 05/21/23 09:17 Discharge Medications: New losartan 50 mg Tablet 50 mg PO BID Qty: 60 0RF cephalexin 500 mg capsule 500 mg PO Q8H Qty: 15 0RF Continued carbidopa-levodopa 25-100 mg tablet 1 tab PO TID gabapentin 100 mg capsule 100 mg PO TID oxycodone 5 mg Tablet 2.5 - 5 mg PO Q4H PRNQty: 20 0RF metoprolol tartrate 25 mg Tablet 25 mg PO BID Qty: 60 0RF warfarin 3 mg tablet 3 mg PO DAILY fluoxetine 10 mg capsule 10 mg PO DAILY furosemide 20 mg tablet 60 mg PO DAILY loratadine 10 mg tablet 10 mg PO DAILY potassium chloride 10 mEq tablet,ER particles/crystals 20 meq PO DAILY Discontinued losartan 50 mg Tablet 50 mg PO DAILY Qty: 30 0RF Discharge Orders: Discharge Order (Routine); Ordered 05/21/23 Ordered By: Deepali Martinez Patient Education: Cephalexin (By mouth), Losartan (By mouth), Cellulitis (GEN), Weakness (DC) Additional Instructions: 1. 5 more days of antibiotics for your leg (sent to [place]) 2. Increase your Losartan from 50mg in the morning to 50mg TWICE PER DAY (new Rx sent to [place]). No other changes to home medications. Activity Level: No Restrictions and Activity as Tolerated Discharge Diet: Regular Follow Up Appointments: Provider,Not a Local [Referring] - Lelo Medina MD [Staff Physician] - 05/27/23 1:25 pm ([facility] for follow-up.) Soifa Guerrero MD [Primary Care Provider] - None (please call [facility] and make an appt for Carmel with Dr. Guerrero in 5-7 days for hospital f/u) Forms: [employer] Info Instructions
--- NOTE | 2023-05-21 12:24 | PC.SOCIAL ---
Discharge planning: Pt returned to [facility] today with van pick-up at 11:30am. casting house worker helped coordinate resumption of care orders for the pt with [facility]. Social work to follow-up as needed.
== END 2023-05-21 11:34 | disposition home or self-care (01) | DRG 603 ==
LOC: ED 21:57 → MEDSURG 22:20
PROVIDERS: Family Medicine; Admitting Provider Family Medicine; Emergency Provider Emergency Medicine Emergency Medical Services; PCP Family Medicine; Visit Provider Family Medicine
DX: L03.116 Cellulitis of left lower limb (principal); I83.218 Varicose veins of right lower extremity with both ulcer of other part of lower extremity and inflammation; I83.228 Varicose veins of left lower extremity with both ulcer of other part of lower extremity and inflammation; L97.819 Non-pressure chronic ulcer of other part of right lower leg with unspecified severity; L97.829 Non-pressure chronic ulcer of other part of left lower leg with unspecified severity; I48.20 Chronic atrial fibrillation, unspecified; F11.20 Opioid dependence, uncomplicated; I50.32 Chronic diastolic (congestive) heart failure; Z68.42 Body mass index [BMI] 45.0-49.9, adult; G47.33 Obstructive sleep apnea (adult) (pediatric); G20.A1 Parkinson's disease without dyskinesia, without mention of fluctuations; I89.0 Lymphedema, not elsewhere classified; K52.9 Noninfective gastroenteritis and colitis, unspecified; E87.6 Hypokalemia; I11.0 Hypertensive heart disease with heart failure; I08.3 Combined rheumatic disorders of mitral, aortic and tricuspid valves; E66.01 Morbid (severe) obesity due to excess calories; G89.29 Other chronic pain; Z79.01 Long term (current) use of anticoagulants; F32.A Depression, unspecified; G47.34 Idiopathic sleep related nonobstructive alveolar hypoventilation
CPT/HCPCS: 36415; 51798; 71045; 80048; 81003; 82803; 83605; 83735; 83880; 84484; 85025; 85379; 85610; 87086; 87631; 94761; 97110; 97116; 97161; 97165; 97530; 97535; 99284; 99285; A9270; J0360; J0690; J2405; J7030

== ENCOUNTER 2023-05-22 11:38 | Outpatient (CLI) | payer MEDICARE, BC, SELFPAY | END 2023-05-22 11:39 | disposition home or self-care (01) | LOC: WOUND 11:39 | PROVIDERS: PCP Family Medicine; Visit Provider Nurse Practitioner Family | DX: I87.312 Chronic venous hypertension (idiopathic) with ulcer of left lower extremity (principal); I73.9 Peripheral vascular disease, unspecified; L97.822 Non-pressure chronic ulcer of other part of left lower leg with fat layer exposed; I89.0 Lymphedema, not elsewhere classified | CPT/HCPCS: 97597 ==

== ENCOUNTER 2023-05-29 11:26 | Outpatient (CLI) | payer MEDICARE, BC, SELFPAY | END 2023-05-29 11:27 | disposition home or self-care (01) | LOC: WOUND 11:27 | PROVIDERS: PCP Family Medicine; Visit Provider Family Medicine | DX: I87.312 Chronic venous hypertension (idiopathic) with ulcer of left lower extremity (principal); L97.822 Non-pressure chronic ulcer of other part of left lower leg with fat layer exposed; I89.0 Lymphedema, not elsewhere classified; I73.9 Peripheral vascular disease, unspecified | CPT/HCPCS: 11042 ==

== ENCOUNTER 2023-06-05 11:44 | Outpatient (CLI) | payer MEDICARE, BC, SELFPAY | END 2023-06-05 11:45 | disposition home or self-care (01) | LOC: WOUND 11:44 | PROVIDERS: PCP Family Medicine; Visit Provider Nurse Practitioner Family | DX: I87.312 Chronic venous hypertension (idiopathic) with ulcer of left lower extremity (principal); I73.9 Peripheral vascular disease, unspecified; L97.822 Non-pressure chronic ulcer of other part of left lower leg with fat layer exposed; I89.0 Lymphedema, not elsewhere classified | CPT/HCPCS: 97597 ==

== ENCOUNTER 2023-06-12 11:28 | Outpatient (CLI) | payer MEDICARE, BC, SELFPAY | END 2023-06-12 11:29 | disposition home or self-care (01) | LOC: WOUND 11:28 | PROVIDERS: PCP Family Medicine; Visit Provider Nurse Practitioner Family | DX: I87.312 Chronic venous hypertension (idiopathic) with ulcer of left lower extremity (principal); I73.9 Peripheral vascular disease, unspecified; L97.822 Non-pressure chronic ulcer of other part of left lower leg with fat layer exposed; I89.0 Lymphedema, not elsewhere classified | CPT/HCPCS: 97597 ==

== ENCOUNTER 2023-06-14 15:38 | Outpatient (CLI) | payer MEDICARE, BC, SELFPAY | END 2023-06-14 15:39 | disposition home or self-care (01) | LOC: AMB 06-19 00:18 | PROVIDERS: PCP Family Medicine; Visit Provider Family Medicine | DX: R05.9 Cough, unspecified (principal); R11.2 Nausea with vomiting, unspecified; G20.A1 Parkinson's disease without dyskinesia, without mention of fluctuations | CPT/HCPCS: A0425; A0427 ==

== ENCOUNTER 2023-06-14 16:07 | Inpatient (IN) | payer MEDICARE, BC, SELFPAY ==
[2023-06-14] VITALS (15 sets, daily range): BP systolic 103–147; BP diastolic 62–101; PULSE 61–112; RESP 16–28; TEMP 36.6–38.3; O2SAT 90–99; BMI 37.4
--- NOTE | 2023-06-14 16:08 | XR_ITS ---
Patient: DIVYA CHAVEZ Facility:?[facility] Patient ID:?[id number] Site Patient ID:?[id number]. Site :?[id number] Study:?XRay-Chest PCXR-06/14/2023 5:01:10 PM Ordering Physician:MANUEL Final Report: INDICATION: Hypoxia, coughing. TECHNIQUE: Chest 1 views. COMPARISON: May 18, 2023. FINDINGS: Cardiovascular and mediastinum: Heart size and vasculature are normal in caliber and appearance. Lungs and pleural spaces: Lungs are clear. No sign of infiltrate or mass. No sign of pleural effusion. No pneumothorax. Bones and soft tissues: No significant findings. IMPRESSION: No acute findings and no significant changes from the prior exam. Dictated by Trevon Woodruff MD @ 06/14/2023 5:13:25 PM Signed by:?Trevon Woodruff MD @06/14/2023 5:13:25 PM (Electronic Signature)
--- NOTE | 2023-06-14 16:18 | ED_ITS ---
HPI - General Adult General Date Seen: 06/14/23 Chief complaint: Nausea/Vomiting Stated complaint: Vomiting, sick, hip pain Time Seen by Provider: 06/14/23 16:08 Source: patient, EMS and RN notes reviewed Mode of arrival: EMS Limitations: no limitations History of Present Illness HPI narrative: This 87-year-old female is brought in as a yellow medical by [facility] from [facility] where she resides in the correction, she is in [facility]. EMS was called as she was sitting outside, started vomiting. Staff felt she was a bit more confused. She was not eating at the time. She has underlying Parkinson's and is tremulous, EMS had difficulty getting an IV, did attempt, blood sugar was 124. Oxygen saturation with supplemental oxygen was only 92%, they question the monitoring due to her tremulous state. Likewise blood pressure was 181/114 but patient was having tremors. They noted constant coughing, dry hacky type cough. She had 1 emesis while sitting outside, 1 emesis in route. She states her shoulder blade maybe hurts a little bit, otherwise denies other pain to me. It is reported that there was complains of right hip pain earlier. There has been no falls, she denies any acute trauma. She reportedly was not eating when she started coughing. 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 History of medial malleolus fracture. Her advanced directives are DNR. Use medical treatment antibiotics IV fluids and cardiac monitoring as indicated. No intubation no advanced airway interventions are mechanical ventilation. May consider less invasive airway aleman pport CPAP or BiPAP. Related Data Home Medications Medication Instructions Recorded Confirmed carbidopa 25 mg-levodopa 100 mg 1 tab PO TID 08/07/22 05/19/23 tablet gabapentin 100 mg capsule 100 mg PO TID 08/08/22 05/19/23 fluoxetine 10 mg capsule 10 mg PO DAILY 05/19/23 05/19/23 furosemide 20 mg tablet 60 mg PO DAILY 05/19/23 05/19/23 loratadine 10 mg tablet 10 mg PO DAILY 05/19/23 05/19/23 potassium chloride 10 mEq 20 meq PO DAILY 05/19/23 05/19/23 tablet,extended release(part/cryst) warfarin 3 mg tablet 3 mg PO DAILY 05/19/23 05/19/23 Previous Rx's Medication Instructions Recorded metoprolol tartrate 25 mg tablet 25 mg PO BID #60 tabs 11/11/22 oxycodone 5 mg tablet 2.5 - 5 mg (0.5 - 1 x 5 mg) PO Q4H 11/11/22 PRN #20 tabs cephalexin 500 mg capsule 500 mg PO Q8H #15 caps 05/21/23 losartan 50 mg tablet 50 mg PO BID #60 tabs 05/21/23 Allergies Allergy/AdvReac Type Severity Reaction Status Date / Time hydrochlorothiazide Allergy Verified 11/07/22 14:31 Sulfa (Sulfonamide Allergy Rash Verified 11/07/22 14:31 Antibiotics) Review of Systems Status of ROS: Reports: 6 or more systems reviewed and unremarkable except as noted in History and below [facility] Medical History POLST (Physician Orders for Life-Sustaining Treatment) ?Z78.9 - Other specified health status (ICD-10) Wound of lower extremity ?S81.809A - Unspecified open wound, unspecified lower leg, initial encounter (ICD-10) Acute on chronic respiratory failure with hypoxia ?J96.21 - Acute and chronic respiratory failure with hypoxia (ICD-10) Parkinson disease ?G20 - Parkinson's disease (ICD-10) Aortic stenosis ?I35.0 - Nonrheumatic aortic (valve) stenosis (ICD-10) Obstructive sleep apnea ?G47.33 - Obstructive sleep apnea (adult) (pediatric) (ICD-10) Physical debility ?R53.81 - Other malaise (ICD-10) Lymphedema ?I89.0 - Lymphedema, not elsewhere classified (ICD-10) Chronic pain ?G89.29 - Other chronic pain (ICD-10) Warfarin anticoagulation ?Z79.01 - watermaster (current) use of anticoagulants (ICD-10) Cellulitis of left lower leg ?L03.116 - Cellulitis of left lower limb (ICD-10) Morbid obesity ?E66.01 - Morbid (severe) obesity due to excess calories (ICD-10) Respiratory failure ?J96.90 - Respiratory failure, unspecified, unspecified whether with hypoxia or hypercapnia (ICD-10) Fracture of rib ?S22.39XA - Fracture of one rib, unspecified side, initial encounter for closed fracture (ICD-10) Physical deconditioning ?R53.81 - Other malaise (ICD-10) At risk for falls ?Z91.81 - History of falling (ICD-10) Unstable gait ?R26.81 - Unsteadiness on feet (ICD-10) Opioid dependence ?F11.20 - Opioid dependence, uncomplicated (ICD-10) Chronic atrial fibrillation ?I48.20 - Chronic atrial fibrillation, unspecified (ICD-10) Depression ?F32.A - Depression, unspecified (ICD-10) Essential hypertension ?I10 - Essential (primary) hypertension (ICD-10) Generalized OA ?M15.9 - Polyosteoarthritis, unspecified (ICD-10) Durable power of tax associate attorney in chart Health care directive on file ?Z78.9 - Other specified health status (ICD-10) Closed right ankle fracture ?S82.891A - Other fracture of right lower leg, initial encounter for closed fracture (ICD-10) Osteoarthritis of right shoulder ?M19.011 - Primary osteoarthritis, right shoulder (ICD-10) Osteoarthritis of left shoulder ?M19.012 - Primary osteoarthritis, left shoulder (ICD-10) Right rotator cuff tear arthropathy ?M75.101 - Unspecified rotator cuff tear or rupture of right shoulder, not specified as traumatic (ICD-10) ?M12.811 - Other specific arthropathies, not elsewhere classified, right shoulder (ICD-10) Osteoarthritis of left knee ?M17.12 - Unilateral primary osteoarthritis, left knee (ICD-10) Chronic diastolic CHF (congestive heart failure), NYHA class 2 ?I50.32 - Chronic diastolic (congestive) heart failure (ICD-10) Venous stasis ulcers of both lower extremities ?I83.019 - Varicose veins of right lower extremity with ulcer of unspecified site (ICD-10) ?I83.029 - Varicose veins of left lower extremity with ulcer of unspecified site (ICD-10) ?L97.919 - Non-pressure chronic ulcer of unspecified part of right lower leg with unspecified severity (ICD-10) ?L97.929 - Non-pressure chronic ulcer of unspecified part of left lower leg with unspecified severity (ICD-10) Hypertension ?I10 - Essential (primary) hypertension (ICD-10) Urinary tract infection ?N39.0 - Urinary tract infection, site not specified (ICD-10) Ulcer of lower extremity ?L97.909 - Non-pressure chronic ulcer of unspecified part of unspecified lower leg with unspecified severity (ICD-10) Chest pain ?R07.9 - Chest pain, unspecified (ICD-10) Cellulitis of leg ?L03.119 - Cellulitis of unspecified part of limb (ICD-10) Atrial fibrillation ?I48.91 - Unspecified atrial fibrillation (ICD-10) Surgical History H/O excision of mass (09/21/00) ?Z98.890 - Other specified postprocedural states (ICD-10) 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 Lives at [place], [place]. No children. Nephew, Michi Chavez, is her POA. Requests DNR/DNI resuscitation status. What is your current living situation?: I presently have a place to live Problems where you live: no known problems Problems where you live details: NA In the past 12 months, utilities in danger of being shut off: no In past 12 months, lack of transportation kept you from medical appts, meetings, work, or getting things needed for daily living: no In the past 12 mos, have been you worried that your food would run out before you had money to buy more?: never true In the past 12 mos, the food you bought just didn't last and you didn't have money to buy more?: never true Highest level of school completed/degree received: Associate degree: academic program Smoking Status: Former smoker What tobacco products do you use: cigarettes Smoking quit date/years: >15 years ago Do you use any of these nicotine containing products: None Second hand tobacco smoke exposure: No How often do you have a drink containing alcohol: 2-4 times a month Alcohol type: beer Alcohol type details: 1 beer every Thursday at happy hour How many standard drinks containing alcohol do you have on a typical day: 1 or 2 How often do you have six or more drinks on one occasion: Never AUDIT-C Alcohol total score: 2 Non-prescribed substance use: denies use Caffeine: Yes How often does anyone, including family, friends and others, physically hurt you : never How often does anyone, including family, friends and others, insult or talk down to you: never How often does anyone, including family, friends and others, threaten you with harm: never How often does anyone, including family, friends and others, scream or curse at you: never service: No Exam Const: Vital Signs, click to edit/add: Vital Signs - 24 hr 06/14/23 16:05 06/14/23 16:08 06/14/23 16:22 Temperature 100.9 F H Pulse Rate 112 H Pulse Rate [Pulse Oximeter] 112 H Respiratory Rate 28 H Blood Pressure Blood Pressure [Le ft Forearm] 141/89 H Pulse Oximetry 92 93 93 Oxygen Delivery Me thod Room Air 06/14/23 16:33 06/14/23 16:49 06/14/23 17:01 Temperature 100.9 F H Pulse Rate 106 H 97 Pulse Rate [Pulse Oximeter] Respiratory Rate 26 H 16 Blood Pressure 135/101 H 147/93 H Blood Pressure [Le ft Forearm] Pulse Oximetry 94 92 Oxygen Delivery Me thod 06/14/23 17:15 06/14/23 17:32 06/14/23 17:45 Temperature 99.5 F Pulse Rate 97 102 H 96 Pulse Rate [Pulse Oximeter] Respiratory Rate 20 Blood Pressure 142/85 H Blood Pressure [Le ft Forearm] Pulse Oximetry 90 92 93 Oxygen Delivery Me thod This 87-year-old female is coughing with a dry cough, interferes with her ability to talk. She is tremulous. Pupils are equal round, sclera clear, conjugate gaze. Oropharynx with normal tongue mucosa anteriorly, when she does speak voice is mildly tremulous. Neck is supple without adenopathy, lungs are clear anteriorly but she is coughing, there was poor effort with auscultation. CV with distant heart sounds, she is coughing so much it is difficult to hear her heart sounds. Abdomen is soft, she is nontender, do not feel any organomegaly. She has some type of dressing over the medial malleolus of the left lower extremity. She has got venous stasis changes of the skin on the right, chronic edema of her legs. She is following basic commands, can move arms and legs. No significant neurologic deficit noted but exam certainly consistent with a tremor Parkinson's. Documenting provider has reviewed patient's vital signs: yes Course Course ED Course: 87-year-old female with nausea vomiting and coughing, certainly infectious etiology come abdominal etiology, respiratory and even cardiac need to be considered. His found that she has a low-grade fever here which certainly points more towards infectious etiology. Pneumonia and abdominal possibilities including urinary tract system are all possible. Will get full complement of labs. She will be on oxygen, cardiac monitoring, pulse oximetry. IV needs to be placed. Reevaluation(s) Time of Reevaluation #1: 17:05 Reevaluation #1: Nursing staff did come in to ask about antibiotics. Urinalysis is back and it is nitrite positive. Her portable chest x-ray is back, I did review this and I do not see definitive pneumonia, do question if there is increased interstitial infiltrates, await Radiology over-read. She has had a history of Proteus mirabilis infection in review of old culture results from her urine. It was only resistant to Macrobid, cephalosporins were good. This was in December of 2022. Thus, will order 1 g IV Rocephin at this time. Will need to be very careful with IV fluids in this patient given her heart failure. We will reassess her status after her initial 250 mL if she is still down here or can be further evaluated by the hospitalist. She will need a 2nd blood culture drawn before she gets her IV antibiotics. Time of Reevaluation #2: 17:53 Reevaluation #2: Checked on patient, she is advised that she is going to be put in the hospital. We believe she has urinary tract infection responsible for her symptoms. She is no longer nauseated, she has not had any Zofran in I did question to see if she needed any. She denies nausea. She had no further questions, will be transferred to the floor shortly. Consultations Consultation #1: Have reviewed with the hospitalist Dr. Martinez. She accepts care. Time: 17:12 Vital Signs Vital signs: Initial Vital Signs Temperature 100.9 F H 06/14/23 16:05 Temperature Source Temporal Artery Scan 06/14/23 16:05 Pulse Rate 112 H 06/14/23 16:05 Pulse Rhythm Regular 06/14/23 16:05 Respiratory Rate 28 H 06/14/23 16:05 Blood Pressure 141/89 H 06/14/23 16:05 Blood Pressure Mean 106 H 06/14/23 16:05 Blood Pressure Position Supine 06/14/23 16:05 Pulse Oximetry 92 06/14/23 16:05 Oxygen Delivery Method Room Air 06/14/23 16:05 Vital Signs Temperature 100.9 F H 06/14/23 16:05 Pulse Rate 112 H 06/14/23 16:05 Respiratory Rate 28 H 06/14/23 16:05 Blood Pressure 141/89 H 06/14/23 16:05 Pulse Oximetry 92 06/14/23 16:05 Oxygen Delivery Method Room Air 06/14/23 16:05 Temperature 99.5 F 06/14/23 17:45 Pulse Rate 96 06/14/23 17:45 Respiratory Rate 20 06/14/23 17:32 Blood Pressure 142/85 H 06/14/23 17:32 Pulse Oximetry 93 06/14/23 17:45 Oxygen Delivery Method Room Air 06/14/23 16:05 Medications Administered Medications: Discontinued Medications Generic Name Dose Route Start Last Admin Trade Name Freq PRN Reason Stop Dose Admin Acetaminophen 650 mg 06/14/23 16:33 06/14/23 16:49 Acetaminophen 325 Mg Tablet PO 06/14/23 16:34 650 mg ONCE ONE Administration Sodium Chloride 250 mls @ 250 mls/hr 06/14/23 16:33 06/14/23 16:53 0.9 % Sodium Chloride 250 Ml IV 06/14/23 17:32 250 mls/hr .Q1H ONE Administration Ceftriaxone Sodium 1 gm/ 100 mls @ 200 mls/hr 06/14/23 17:07 06/14/23 17:18 Sodium Chloride IVPB 06/14/23 17:08 200 mls/hr ONCE ONE Administration Medical Decision Making Lab Data Lab results reviewed: Yes I reviewed the patient's lab results Labs: Lab Results 06/14/23 06/14/23 06/14/23 Range/Units 16:10 16:30 16:40 WBC 12.67 H (4.50-11.00) K/uL RBC 4.42 (4.00-5.20) m/uL Hgb 13.9 (12.0-16.0) gm/dL Hct 44.3 (33.0-51.0) % MCV 100 (80-100) fL MCH 31 (26-34) pg MCHC 31 L (32-36) gm/dL RDW Coeff of Mandeep 13.6 (11.5-15.5) % Plt Count 259 (140-440) K/uL Neut % (Auto) 94.8 H (42.0-72.0) % Lymph % (Auto) 0.9 L (20-44) % Centre % (Auto) 3.2 (0.0-11.0) % Eos % (Auto) 0.5 (0.0-7.0) % Baso % (Auto) 0.1 (0.0-3.0) % Neut # (Auto) 12.00 H (1.7-7.0) K/uL Lymph # (Auto) 0.10 L (0.90-2.90) K/uL Centre # (Auto) 0.40 (0.00-0.90) K/UL Eos # (Auto) 0.10 (0.00-0.50) K/uL Baso # (Auto) 0.00 (0.00-0.30) K/uL Abs Immat Gran (auto) 0.10 (0.00-0.30) K/uL Imm/Tot Granulo (auto) 0.5 % INR 1.92 H (0.91-1.10) VBG pH 7.450 H (7.32-7.43) VBG pCO2 39 L (40-50) mmHG VBG pO2 < 30.1 (25-47) mmHG VBG HCO3 27 (21-28) mmol/L Sodium 135 (135-149) mmol/L Potassium 3.5 L (3.6-5.1) mmol/L Chloride 103 (96-114) mmol/L Carbon Dioxide 25 (20-32) mmol/L Anion Gap 7 (7-15) mEq/L BUN 19 (7-30) mg/dL Creatinine 0.9 (0.5-1.5) mg/dL Estimated Creat Clear 37.01 Estimated GFR 63 ml/min Glucose 105 (60-115) mg/dL Lactate 2.5 H (0.5-1.9) mmol/L Calcium 8.9 (8.4-10.6) mg/dL Magnesium 1.8 (1.5-2.6) mg/dL Total Bilirubin 1.0 (0.1-1.5) mg/dL AST 15 (12-35) U/L ALT 7 (4-35) U/L Alkaline Phosphatase 96 (40-150) U/L C-Reactive Protein 2.8 H (0.5-1.0) mg/dL NT-Pro-B Natriuret Pep 4650 pg/mL Total Protein 7.9 (6.0-8.3) g/dL Albumin 4.3 (3.3-5.0) g/dL Lipase 46 (23-300) U/L Procalcitonin 0.16 (<0.50) ng/mL Urine Color Yellow (Yellow) Urine Appearance Cloudy A (Clear) Urine pH 8.0 (5.0-8.5) Ur Specific [place] 1.015 (1.000-1.030) Urine Protein 1+ A (Negative) Urine Glucose (UA) Negative (Negative) Urine Ketones Negative (Negative) Urine Blood Trace-intact A (Negative) Urine Nitrite Positive A (Negative) Urine Bilirubin Negative (Negative) Urine Urobilinogen 0.2 (0.2-1.0) Ur Leukocyte Esterase 3+ A (Negative) Urine RBC 0-2 (0-2) Urine WBC >100 A (0-5) Ur Squamous Epith Cells Many A (None-Few) Other Sediment Few A (None) Urine Bacteria Many A (None) Urine Yeast Few A (None) SARS-CoV-2 (PCR) Negative SARS-CoV-2 (Negative) Influenza Type A (PCR) Negative PCR FLU A (Negative) Influenza Type B (PCR) Negative PCR FLU B (Negative) RSV (PCR) Negative PCR RSV (Negative) POC Troponin I (0.01-0.04) ng/ml 04/14/24 Range/Units 16:45 WBC (4.50-11.00) K/uL RBC (4.00-5.20) m/uL Hgb (12.0-16.0) gm/dL Hct (33.0-51.0) % MCV (80-100) fL MCH (26-34) pg MCHC (32-36) gm/dL RDW Coeff of Mandeep (11.5-15.5) % Plt Count (140-440) K/uL Neut % (Auto) (42.0-72.0) % Lymph % (Auto) (20-44) % Centre % (Auto) (0.0-11.0) % Eos % (Auto) (0.0-7.0) % Baso % (Auto) (0.0-3.0) % Neut # (Auto) (1.7-7.0) K/uL Lymph # (Auto) (0.90-2.90) K/uL Centre # (Auto) (0.00-0.90) K/UL Eos # (Auto) (0.00-0.50) K/uL Baso # (Auto) (0.00-0.30) K/uL Abs Immat Gran (auto) (0.00-0.30) K/uL Imm/Tot Granulo (auto) % INR (0.91-1.10) VBG pH (7.32-7.43) VBG pCO2 (40-50) mmHG VBG pO2 (25-47) mmHG VBG HCO3 (21-28) mmol/L Sodium (135-149) mmol/L Potassium (3.6-5.1) mmol/L Chloride (96-114) mmol/L Carbon Dioxide (20-32) mmol/L Anion Gap (7-15) mEq/L BUN (7-30) mg/dL Creatinine (0.5-1.5) mg/dL Estimated Creat Clear Estimated GFR ml/min Glucose (60-115) mg/dL Lactate (0.5-1.9) mmol/L Calcium (8.4-10.6) mg/dL Magnesium (1.5-2.6) mg/dL Total Bilirubin (0.1-1.5) mg/dL AST (12-35) U/L ALT (4-35) U/L Alkaline Phosphatase (40-150) U/L C-Reactive Protein (0.5-1.0) mg/dL NT-Pro-B Natriuret Pep pg/mL Total Protein (6.0-8.3) g/dL Albumin (3.3-5.0) g/dL Lipase (23-300) U/L Procalcitonin (<0.50) ng/mL Urine Color (Yellow) Urine Appearance (Clear) Urine pH (5.0-8.5) Ur Specific [place] (1.000-1.030) Urine Protein (Negative) Urine Glucose (UA) (Negative) Urine Ketones (Negative) Urine Blood (Negative) Urine Nitrite (Negative) Urine Bilirubin (Negative) Urine Urobilinogen (0.2-1.0) Ur Leukocyte Esterase (Negative) Urine RBC (0-2) Urine WBC (0-5) Ur Squamous Epith Cells (None-Few) Other Sediment (None) Urine Bacteria (None) Urine Yeast (None) SARS-CoV-2 (PCR) (Negative) Influenza Type A (PCR) (Negative) Influenza Type B (PCR) (Negative) RSV (PCR) (Negative) POC Troponin I 0.02 (0.01-0.04) ng/ml Imaging Data Chest x-ray: Attestation: I have reviewed the pertinent imaging results. Radiologist's impression: Patient: DIVYA CHAVEZ Facility:?[facility] Patient ID:?[id number] Site Patient ID:?[id number]. Site :?[id number] Study:?XRay Chest PCXR-06/14/2023 5:01:10 PM Ordering Physician:MANUEL Final Report: INDICATION: Hypoxia, coughing. TECHNIQUE: Chest 1 views. COMPARISON: May 18, 2023. FINDINGS: Cardiovascular and mediastinum: Heart size and vasculature are normal in caliber and appearance. Lungs and pleural spaces: Lungs are clear. No sign of infiltrate or mass. No sign of pleural effusion. No pneumothorax. Bones and soft tissues: No significant findings. IMPRESSION: No acute findings and no significant changes from the prior exam. Dictated by Trevon Woodruff MD @ 06/14/2023 5:13:25 PM (Electronic Signature) ECG Data Attestation: I personally reviewed and interpreted this ECG as follows: (Atrial fibrillation with RVR, 120 beats per minute. Nonspecific ST/T-wave changes. No definitive infarct. QT corrected 460 milliseconds.) Prior ECG tracings: available for review (Controlled atrial fibrillation in December of 2022.) Discharge Plan Discharge Clinical Impression: Parkinson disease, Atrial fibrillation with rapid ventricular response Fever Qualifiers: Fever type: unspecified Qualified Code(s): R50.9 - Fever, unspecified UTI (urinary tract infection) Qualifiers: Urinary tract infection type: site unspecified Hematuria presence: without hematuria Qualified Code(s): N39.0 - Urinary tract infection, site not specified Patient Disposition: Admitted As Observation
[2023-06-14 16:47] LABS: Appearance Urine Cloudy (Clear); Bilirubin Urine Negative (Negative); Blood Urine Trace-intact (Negative); Color Urine Yellow (Yellow); Glucose Urine Negative (Negative); Ketones Urine Negative (Negative); Leukocyte Esterase Urine 3+ (Negative); Nitrite Urine Positive (Negative); Protein Urine 1+ (Negative); Specific Gravity Urine 1.015 (1.000-1.030); Urobilinogen Urine 0.2 (0.2-1.0)
[2023-06-14 16:48] LABS: Basophils Percent Auto 0.1 % (0.0-3.0); Eosinophils Percent Auto 0.5 % (0.0-7.0); HCO3 VBG 27 mmol/L (21-28); Hematocrit 44.3 % (33.0-51.0); Hemoglobin* 13.9 gm/dL (12.0-16.0); Immature Granulocytes Pct Auto 0.5 %; Lymphocytes Percent Auto 0.9 % (20-44); Mean Corpuscular HGB Conc 31 gm/dL (32-36); Mean Corpuscular Hemoglobin 31 pg (26-34); Mean Corpuscular Volume 100 fL (80-100); Monocytes Percent Auto 3.2 % (0.0-11.0); Neutrophils Percent Auto 94.8 % (42.0-72.0); PCO2 VBG 39 mmHG (40-50); PO2 VBG < 30.1 mmHG (25-47); Platelet Count* 259 K/uL (140-440); RDW Coefficient of Variation % 13.6 % (11.5-15.5); Red Blood Count 4.42 m/uL (4.00-5.20); White Blood Count* 12.67 K/uL (4.50-11.00)
[2023-06-14] MEDS: ACETAMINOPHEN 325 MG TABLET 650 MG PO (16:49)
[2023-06-14 16:52] LABS: Troponin, Point-of-Care* 0.02 ng/ml (0.01-0.04)
[2023-06-14] MEDS: 0.9 % SODIUM CHLORIDE 250 ml 250 ML IV (16:53)
[2023-06-14 16:56] LABS: PCR FLU A Negative PCR FLU A (Negative); PCR FLU B Negative PCR FLU B (Negative); PCR RSV Negative PCR RSV (Negative); SARS PCR* Negative SARS-CoV-2 (Negative)
[2023-06-14 16:58] LABS: Slide Review Reflex No
[2023-06-14 16:58] LABS: Bacteria Urine Many; RBC Urine 0-2 (0-2); Squamous Epithelial Cell Urine Many (None-Few); WBC Urine >100 (0-5)
[2023-06-14 16:59] LABS: Other Sediment Urine Few
[2023-06-14 17:12] LABS: Albumin* 4.3 g/dL (3.3-5.0); Chloride* 103 mmol/L (96-114); Sodium* 135 mmol/L (135-149)
[2023-06-14 17:13] LABS: Potassium* 3.5 mmol/L (3.6-5.1)
[2023-06-14 17:15] LABS: Alkaline Phosphatase* 96 U/L (40-150); Anion Gap 7 mEq/L (7-15); Aspartate Amino Transferase* 15 U/L (12-35); Carbon Dioxide* 25 mmol/L (20-32); Creatinine* 0.9 mg/dL (0.5-1.5); Est. Creatinine Clearance* 37.01; Estimated Glomerular Filt Rate 63 ml/min; Lipase* 46 U/L (23-300); Total Protein* 7.9 g/dL (6.0-8.3)
[2023-06-14 17:16] LABS: Alanine Aminotransferase* 7 U/L (4-35); Blood Urea Nitrogen* 19 mg/dL (7-30); Calcium* 8.9 mg/dL (8.4-10.6); Glucose* 105 mg/dL (60-115); Magnesium* 1.8 mg/dL (1.5-2.6)
[2023-06-14 17:18] LABS: C Reactive Protein* 2.8 mg/dL (0.5-1.0); INR 1.92 (0.91-1.10); Prothrombin Time 23.4 Seconds
[2023-06-14] MEDS: cefTRIAXone 1 GM in 0.9 % SODIUM CHLORIDE Mini-bag 100 ML IVPB (17:18)
[2023-06-14 17:21] LABS: Lactate* 2.5 mmol/L (0.5-1.9)
[2023-06-14 17:26] LABS: NT Pro B Type NatriureticPept* 4650 pg/mL
[2023-06-14 17:33] LABS: Procalcitonin* 0.16 ng/mL (<0.50)
[2023-06-14 17:58] LABS: Troponin I* < 0.01 ng/mL (0.01-0.04)
--- NOTE | 2023-06-14 18:40 | PM.IMHP1 ---
Hospitalist- H&P: HPI History of Present Illness Date Seen: 06/14/23 Chief complaint: Vomiting, sick, hip pain Narrative: Carmel Chang is a 87 year old female who was BIBA today from [facility]. She was sitting outside and started coughing, she then had a few episodes of vomiting without hematemesis. EMS was called; blood sugar 124. She was not confused in route and did have 1 further emesis prior to arrival in the emergency room. She had a normal breakfast a few hours prior to episode, was not eating when she started coughing. ER course and findings: - initial heart rate 112, rhythm is atrial fibrillation with RVR (not new) - temperature of 100.9?, respiratory rate of 28, white blood count of 12.6 and lactate is 2.5. No hypotension - evidence of infection on UA, no acute changes on chest x-ray - vital signs improved after administration of Tylenol - she also received 250 mL of IVFs and a dose of ceftriaxone Upon arrival to the floor, Carmel is feeling better. She endorses having cough for the past few weeks, in addition to (more than usual) dyspnea on exertion. Cough has been productive of white phlegm, no hemoptysis. She notices that perhaps her lower extremity edema has worsened and she has also noted intermittent orthopnea. She has not had PND, she has not had chest pain. No UTI symptoms. Histories updated below. Sees Drs. Guerrero and Anival for [facility]. Review of Systems Narrative: - no concerns of choking/aspiration - Parkinsons is stable [facility] Medical History (Updated 06/14/23 @ 20:31 by Deepali Martinez MD) Aortic stenosis ?I35.0 - Nonrheumatic aortic (valve) stenosis (ICD-10) Venous stasis dermatitis of both lower extremities ?I87.2 - Venous insufficiency (chronic) (peripheral) (ICD-10) Warfarin anticoagulation ?Z79.01 - intermediate frame tender (current) use of anticoagulants (ICD-10) Wound of lower extremity ?S81.809A - Unspecified open wound, unspecified lower leg, initial encounter (ICD-10) Parkinson disease ?G20 - Parkinson's disease (ICD-10) Obstructive sleep apnea ?G47.33 - Obstructive sleep apnea (adult) (pediatric) (ICD-10) Physical debility ?R53.81 - Other malaise (ICD-10) Lymphedema ?I89.0 - Lymphedema, not elsewhere classified (ICD-10) Chronic pain ?G89.29 - Other chronic pain (ICD-10) Cellulitis of left lower leg ?L03.116 - Cellulitis of left lower limb (ICD-10) Morbid obesity ?E66.01 - Morbid (severe) obesity due to excess calories (ICD-10) Respiratory failure ?J96.90 - Respiratory failure, unspecified, unspecified whether with hypoxia or hypercapnia (ICD-10) Fracture of rib ?S22.39XA - Fracture of one rib, unspecified side, initial encounter for closed fracture (ICD-10) Physical deconditioning ?R53.81 - Other malaise (ICD-10) At risk for falls ?Z91.81 - History of falling (ICD-10) Unstable gait ?R26.81 - Unsteadiness on feet (ICD-10) Opioid dependence ?F11.20 - Opioid dependence, uncomplicated (ICD-10) Chronic atrial fibrillation ?I48.20 - Chronic atrial fibrillation, unspecified (ICD-10) Depression ?F32.A - Depression, unspecified (ICD-10) Essential hypertension ?I10 - Essential (primary) hypertension (ICD-10) Generalized OA ?M15.9 - Polyosteoarthritis, unspecified (ICD-10) Durable power of state attorney in chart Health care directive on file ?Z78.9 - Other specified health status (ICD-10) Closed right ankle fracture ?S82.891A - Other fracture of right lower leg, initial encounter for closed fracture (ICD-10) Osteoarthritis of right shoulder ?M19.011 - Primary osteoarthritis, right shoulder (ICD-10) Osteoarthritis of left shoulder ?M19.012 - Primary osteoarthritis, left shoulder (ICD-10) Right rotator cuff tear arthropathy ?M75.101 - Unspecified rotator cuff tear or rupture of right shoulder, not specified as traumatic (ICD-10) ?M12.811 - Other specific arthropathies, not elsewhere classified, right shoulder (ICD-10) Osteoarthritis of left knee ?M17.12 - Unilateral primary osteoarthritis, left knee (ICD-10) Chronic diastolic CHF (congestive heart failure), NYHA class 2 ?I50.32 - Chronic diastolic (congestive) heart failure (ICD-10) Venous stasis ulcers of both lower extremities ?I83.019 - Varicose veins of right lower extremity with ulcer of unspecified site (ICD-10) ?I83.029 - Varicose veins of left lower extremity with ulcer of unspecified site (ICD-10) ?L97.919 - Non-pressure chronic ulcer of unspecified part of right lower leg with unspecified severity (ICD-10) ?L97.929 - Non-pressure chronic ulcer of unspecified part of left lower leg with unspecified severity (ICD-10) Hypertension ?I10 - Essential (primary) hypertension (ICD-10) Urinary tract infection ?N39.0 - Urinary tract infection, site not specified (ICD-10) Ulcer of lower extremity ?L97.909 - Non-pressure chronic ulcer of unspecified part of unspecified lower leg with unspecified severity (ICD-10) Chest pain ?R07.9 - Chest pain, unspecified (ICD-10) Cellulitis of leg ?L03.119 - Cellulitis of unspecified part of limb (ICD-10) Atrial fibrillation ?I48.91 - Unspecified atrial fibrillation (ICD-10) Surgical History H/O excision of mass (09/21/00) ?Z98.890 - Other specified postprocedural states (ICD-10) 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 Lives at [place], [place]. No children. Nephew, Michi Chang, is her POA ([phone]). Requests DNR/DNI resuscitation status. What is your current living situation?: I presently have a place to live Problems where you live: no known problems Problems where you live details: NA In the past 12 months, utilities in danger of being shut off: no In past 12 months, lack of transportation kept you from medical appts, meetings, work, or getting things needed for daily living: no In the past 12 mos, have been you worried that your food would run out before you had money to buy more?: never true In the past 12 mos, the food you bought just didn't last and you didn't have money to buy more?: never true Highest level of school completed/degree received: Associate degree: academic program Smoking Status: Former smoker What tobacco products do you use: cigarettes Smoking quit date/years: >15 years ago Do you use any of these nicotine containing products: None Second hand tobacco smoke exposure: No How often do you have a drink containing alcohol: 2-4 times a month Alcohol type: beer Alcohol type details: 1 beer every Thursday at happy hour How many standard drinks containing alcohol do you have on a typical day: 1 or 2 How often do you have six or more drinks on one occasion: Never AUDIT-C Alcohol total score: 2 Non-prescribed substance use: denies use Caffeine: Yes How often does anyone, including family, friends and others, physically hurt you: never How often does anyone, including family, friends and others, insult or talk down to you: never How often does anyone, including family, friends and others, threaten you with harm: never How often does anyone, including family, friends and others, scream or curse at you: never service: No Meds Home Medications and Allergies Home Medications Medication Instructions Recorded Confirmed Type carbidopa 25 mg-levodopa 100 mg 1 tab PO TID 08/07/22 06/14/23 History tablet gabapentin 100 mg capsule 100 mg PO TID 08/08/22 06/14/23 History fluoxetine 10 mg capsule 30 mg PO DAILY 05/19/23 06/14/23 History furosemide 20 mg tablet 60 mg PO DAILY 05/19/23 06/14/23 History loratadine 10 mg tablet 10 mg PO DAILY 05/19/23 06/14/23 History potassium chloride 10 mEq 20 meq PO DAILY 05/19/23 06/14/23 History tablet,extended release(part/cryst) warfarin 3 mg tablet 3 mg PO DAILY 05/19/23 06/14/23 History Allergies Allergy/AdvReac Type Severity Reaction Status Date / Time hydrochlorothiazide Allergy Verified 11/07/22 14:31 Sulfa (Sulfonamide Allergy Rash Verified 11/07/22 14:31 Antibiotics) Exam Narrative: Exam Narrative: GEN: Alert and oriented, answering questions appropriately and is comfortable in bed HEENT: EOMIs bilaterally, no scleral icterus CV: Irregularly irregular with harsh systolic murmur heard best in left midclavicular line R: No wheezing, fine bibasilar crackles Ext: Moving extremities spontaneously, 1+ bilateral lower extremity edema, BLE onychomycosis Skin: Skin changes of bilateral lower extremities consistent with PVD/venous stasis dermatitis; left lower extremity has blanching erythema that is warm and extends caudally past the left knee. Known wounds on bilateral extremities, these are covered and not formally examined on admission Neuro: Tremor of upper extremities and tongue noted, baseline for Parkinson history Psych: Appropriate Const: Vital Signs, click to edit/add: Vital Signs - 24 hr 06/14/23 16:05 06/14/23 16:08 06/14/23 16:22 Temperature 100.9 F H Pulse Rate 112 H Pulse Rate [Pulse Oximeter] 112 H Respiratory Rate 28 H Blood Pressure Blood Pressure [Le ft Forearm] 141/89 H Pulse Oximetry 92 93 93 Oxygen Delivery Me thod Room Air 06/14/23 16:33 06/14/23 16:49 06/14/23 17:01 Temperature 100.9 F H Pulse Rate 106 H 97 Pulse Rate [Pulse Oximeter] Respiratory Rate 26 H 16 Blood Pressure 135/101 H 147/93 H Blood Pressure [Le ft Forearm] Pulse Oximetry 94 92 Oxygen Delivery Me thod 06/14/23 17:15 06/14/23 17:32 06/14/23 17:45 Temperature 99.5 F Pulse Rate 97 102 H 96 Pulse Rate [Pulse Oximeter] Respiratory Rate 20 Blood Pressure 142/85 H Blood Pressure [Le ft Forearm] Pulse Oximetry 90 92 93 Oxygen Delivery Me thod Hospitalist - H&P: Result Labs Labs: Short CBC 06/14/23 Range/Units 16:30 WBC 12.67 H (4.50-11.00) K/uL Hgb 13.9 (12.0-16.0) gm/dL Hct 44.3 (33.0-51.0) % Plt Count 259 (140-440) K/uL BMP 06/14/23 16:30 Sodium 135 Potassium 3.5 L Chloride 103 Carbon Dioxide 25 BUN 19 Creatinine 0.9 Glucose 105 Calcium 8.9 Cardiac Enzymes 06/14/23 Range/Units 16:30 Troponin I < 0.01 L (0.01-0.04) ng/mL Liver Function 06/14/23 Range/Units 16:30 Total Bilirubin 1.0 (0.1-1.5) mg/dL AST 15 (12-35) U/L ALT 7 (4-35) U/L Alkaline Phosphatase 96 (40-150) U/L Albumin 4.3 (3.3-5.0) g/dL Urine 06/14/23 Range/Units 16:40 Urine Color Yellow (Yellow) Urine Appearance Cloudy A (Clear) Urine pH 8.0 (5.0-8.5) Ur Specific [place] 1.015 (1.000-1.030) Urine Protein 1+ A (Negative) Urine Glucose (UA) Negative (Negative) Assessment and Plan Assessment and plan (1) Fever: Problem comment: - meets SIRS criteria with WBC of >12, RR 28 on ED presentation, HR 112, temperature 100.9 - significant improvement in VS after APAP administration and resolution of fever - UA concerning for UTI, also may have LLE cellulitis Status: Acute (2) UTI (urinary tract infection): Problem comment: - history of these, has previously grown Proteus that is sensitive to Cefazolin - received Ceftriaxone in ED, will transition to Cefazolin on 06/13 to cover cellulitis Status: Acute (3) Cellulitis: Problem comment: - known BLE venous stasis with worsening erythema superiorly on L - Ancef (06/14/23) Status: Acute (4) Venous stasis dermatitis of both lower extremities: Status: Acute (5) Atrial fibrillation with rapid ventricular response: Problem comment: - HR 110s-120s in ED, improved to 80s/90s after APAP administration - continue Metoprolol and Warfarin Status: Acute (6) Parkinson disease: Problem comment: - mildly progressive Parkinson's disease, treated with Sinemet - follows with Dr. Scott of Neurology Status: Acute (7) Warfarin anticoagulation: Problem comment: - afib - pharmacy consult; daily INR, goal 2-3 Status: Acute (8) Aortic stenosis: Problem comment: - TTE in July 2022: normal LV size with preserved EF of 60-65%, mild , mild MR. [id number] tricuspid regurgitation, normal pulmonary pressures - appears to have mild CHF exacerbation by history with prominent pulmonary vasculature on admission imaging - will repeat TTE to evaluate fluid status, hold off on maintenance IVFs at this time given risk of fluid overload - continue daily am Lasix and monitor Is/Os closely Status: Acute Plan - per above - attempted to call yanique Borden to discuss admission, no answer
[2023-06-14 19:30] LABS: Lactate* 2.3 mmol/L (0.5-1.9)
--- NOTE | 2023-06-14 19:31 | PC.NURSE ---
Patient alert and orientedx4. Vital signs stable this shift, Afebrile. Incontinent of urine. Skin noted to be mostly intact with open sore at the right ankle( Outpatient wound care following per patient report). Patient's coccyx noted to be red, blanchable with no open area. Started ion 2LNC for 02 sats in the high 80s. No hallucinations and no pain reported. Afib with a controlled rate this shift( 90s)
[2023-06-14] MEDS: CEFAZOLIN 1 GM in 0.9 % SODIUM CHLORIDE Mini-bag 100 ML IVPB (20:39)
[2023-06-14] MEDS: METOPROLOL TARTRATE 25 MG TABLET PO (20:40)
[2023-06-14] MEDS: GABAPENTIN 100 MG CAPSULE PO (20:40)
[2023-06-14] MEDS: LOSARTAN POTASSIUM 50 MG TABLET PO (20:40)
[2023-06-14] MEDS: SODIUM CHLORIDE 0.9 % (FLUSH) 10 ML SYRINGE 5 ML IVF (20:40)
[2023-06-14] MEDS: CARBIDOPA-LEVODOPA 25-100 TABLET 1 TAB PO (20:40)
[2023-06-14] MEDS: guaiFENesin 100 MG/ML CUP PO (21:42)
[2023-06-15] VITALS (9 sets, daily range): BP systolic 130–188; BP diastolic 62–86; PULSE 59–90; RESP 18–20; TEMP 36.5–36.8; O2SAT 89–100
[2023-06-15] MEDS: ACETAMINOPHEN 325 MG TABLET 975 MG PO ×2 (03:00→16:09)
[2023-06-15] MEDS: CEFAZOLIN 1 GM in 0.9 % SODIUM CHLORIDE Mini-bag 100 ML IVPB ×3 (03:45→19:27)
[2023-06-15] MEDS: OXYCODONE 5 MG TABLET PO ×3 (03:49→21:17)
--- NOTE | 2023-06-15 06:13 | PC.NURSE ---
End of shift [id number]: A&O pleasant and cooperative. VSS. Pt on 2L of oxygen at beginning of shift. Pt now tolerating room air maintains sats >90%. Repots 8-10 pain in left ankle. See eMAR for interventions. Dressing to left ankle dry and intact. Erythema outlined on LLE. Redness contained in boarder. ?Turn/repo and brief changes while in bed. Up to commode with SBA walker and gait belt.
[2023-06-15 06:21] LABS: HCO3 VBG 28 mmol/L (21-28); Lactate* 0.8 mmol/L (0.5-1.9); PCO2 VBG 40 mmHG (40-50); PO2 VBG 49.9 mmHG (25-47); pH VBG 7.446 (7.32-7.43)
[2023-06-15 06:28] LABS: Basophils Absolute Auto 0.01 K/uL (0.00-0.30); Basophils Percent Auto 0.1 % (0.0-3.0); Eosinophils Absolute Auto 0.16 K/uL (0.00-0.50); Eosinophils Percent Auto 2.1 % (0.0-7.0); Hematocrit 34.8 % (33.0-51.0); Immature Granulocytes Abs Auto 0.03 K/uL (0.00-0.30); Immature Granulocytes Pct Auto 0.4 %; Lymphocytes Percent Auto 2.1 % (20-44); Mean Corpuscular HGB Conc 32 gm/dL (32-36); Mean Corpuscular Hemoglobin 32 pg (26-34); Mean Corpuscular Volume 100 fL (80-100); Monocytes Percent Auto 9.3 % (0.0-11.0); Platelet Count* 193 K/uL (140-440); RDW Coefficient of Variation % 13.7 % (11.5-15.5); Red Blood Count 3.47 m/uL (4.00-5.20); White Blood Count* 7.64 K/uL (4.50-11.00)
[2023-06-15 06:30] LABS: Slide Review Reflex No
[2023-06-15 06:44] LABS: Chloride* 107 mmol/L (96-114); Potassium* 3.4 mmol/L (3.6-5.1); Sodium* 135 mmol/L (135-149)
[2023-06-15 06:46] LABS: Anion Gap 0 mEq/L (7-15); Bilirubin Total* 0.6 mg/dL (0.1-1.5); Carbon Dioxide* 28 mmol/L (20-32); Creatinine* 0.7 mg/dL (0.5-1.5); Est. Creatinine Clearance* 37.01; Estimated Glomerular Filt Rate 85 ml/min
[2023-06-15 06:47] LABS: Alanine Aminotransferase* 4 U/L (4-35); Alkaline Phosphatase* 66 U/L (40-150); Aspartate Amino Transferase* 12 U/L (12-35); Blood Urea Nitrogen* 16 mg/dL (7-30); Calcium* 8.2 mg/dL (8.4-10.6); Glucose* 90 mg/dL (60-115); Total Protein* 5.9 g/dL (6.0-8.3)
[2023-06-15 07:06] LABS: NT Pro B Type NatriureticPept* 8950 pg/mL
[2023-06-15 07:23] LABS: INR 1.83 (0.91-1.10); Prothrombin Time 22.5 Seconds
--- NOTE | 2023-06-15 08:22 | PM.IMPN1 ---
Progress Note: A&P Assessment and plan (1) Atrial fibrillation with rapid ventricular response: Problem details: - RVR resolved, back to the 70's. feels better. continue telemetry and home meds [employer]. - continue Metoprolol and Warfarin Status: Acute (2) Fever: Problem details: - meets SIRS criteria with WBC of >12, RR 28 on ED presentation, HR 112, temperature 100.9 (NOW RESOLVED) - source is likely both the cellulitis, UTI. IV Ancef ongoing. Pt feels much better. Status: Acute (3) UTI (urinary tract infection): Problem details: - history of these, has previously grown Proteus that is sensitive to Cefazolin - received Ceftriaxone in ED, will transition to Cefazolin on 06/13 to cover cellulitis Status: Acute (4) Cellulitis: Problem details: - known BLE venous stasis with worsening erythema superiorly on L - Ancef (06/14/23) - erythema outline is receeding Status: Acute (5) Venous stasis dermatitis of both lower extremities: Status: Acute (6) Parkinson disease: Problem details: - mildly progressive Parkinson's disease, treated with Sinemet - follows with Dr. Scott of Neurology Status: Acute (7) Depression: Problem details: prozac (bereavement related) Status: Acute (8) Aortic stenosis: Problem details: - TTE in July 2022: normal LV size with preserved EF of 60-65%, mild , mild MR. [id number] tricuspid regurgitation, normal pulmonary pressures - appears to have mild CHF exacerbation by history with prominent pulmonary vasculature on admission imaging - will repeat TTE to evaluate fluid status, hold off on maintenance IVFs at this time given risk of fluid overload - continue daily am Lasix and monitor Is/Os closely Status: Acute (9) Warfarin anticoagulation: Problem details: - afib - pharmacy consult; daily INR, goal 2-3 Status: Acute Subjective Date Seen: 06/15/23 Interval history: Daily Progress Note - Hospital Medicine Day #: 2 CC: Coughing with emesis may be due to CHF exacerbation, UTI (IV Ancef) OVERNIGHT UPDATES FROM STAFF & MED, LAB, IMAGING UPDATES Pt feels much better. She is working with OT and I observe. She is clear and a good historian. CBC reflects a down trending white blood cell count 12.6 down to 7.6 Hemoglobin is down to 11.0 from 13.9 however the 11 and low 12 seem to be her baseline she might of been hemoconcentrated yesterday. PH 7.446. No CO2 retention. Bicarb normal. Potassium is a touch low at 3.4, normal renal function, normal electrolytes. Lactate is normal now, peaked at 2.5 which was in the ER BNP has been as high as 12,300, most recently has been in the 3 thousands. Presented yesterday at 460 in is 8900 this morning CRP was 2.8 on ER admission, pro count was negative. CRP up to 6.2 this am Troponin was undetectable yesterday and today. Urine looked infected with positive nitrite, 3+ leukocyte esterase Respiratory screen for viral infections negative. Blood culture x2, MRSA, urine culture all pending. EKG showed AFib with RVR. Rate was 120 the time, rate is now down into the 70s. Objective: well. NAD. clear wit history and routine. Vitals: see above Lungs: Clear. Cardiac: S1S2. Regular rate skin: pretibial: thickened chronic stasis dermatitis noted. mild erythema throughout but clearly receeded to prior outline. Disposition/Potential discharge - Likely to return to previous living situation. Today I spent 50minutes seeing the patient, reviewing Expanse and EPIC notes/diagnostics, discussing the care plan with our care time that includes social work, PT/OT, pharmacy, RT, mcfp and documenting my impressions and plan in the medical record. Exam Const: Vital Signs, click to edit/add: Vital Signs - 24 hr 06/14/23 16:05 06/14/23 16:08 06/14/23 16:22 Temperature 100.9 F H Pulse Rate 112 H Pulse Rate [Pulse Oximeter] 112 H Respiratory Rate 28 H Blood Pressure Blood Pressure [Le ft Forearm] 141/89 H Blood Pressure [Ri ght Arm] Pulse Oximetry 92 93 93 Oxygen Delivery Me thod Room Air Oxygen Flow Rate 06/14/23 16:33 06/14/23 16:49 06/14/23 17:01 Temperature 100.9 F H Pulse Rate 106 H 97 Pulse Rate [Pulse Oximeter] Respiratory Rate 26 H 16 Blood Pressure 135/101 H 147/93 H Blood Pressure [Le ft Forearm] Blood Pressure [Ri ght Arm] Pulse Oximetry 94 92 Oxygen Delivery Me thod Oxygen Flow Rate 06/14/23 17:15 06/14/23 17:32 06/14/23 17:45 Temperature 99.5 F Pulse Rate 97 102 H 96 Pulse Rate [Pulse Oximeter] Respiratory Rate 20 Blood Pressure 142/85 H Blood Pressure [Le ft Forearm] Blood Pressure [Ri ght Arm] Pulse Oximetry 90 92 93 Oxygen Delivery Me thod Oxygen Flow Rate 06/14/23 18:25 06/14/23 18:26 06/14/23 19:38 Temperature 98.5 F 97.9 F Pulse Rate Pulse Rate [Pulse Oximeter] 88 61 Respiratory Rate 20 18 Blood Pressure Blood Pressure [Le ft Forearm] Blood Pressure [Ri ght Arm] 145/70 H 146/73 H Pulse Oximetry 94 99 Oxygen Delivery Me thod Nasal Cannula Nasal Cannula Nasal Cannula Oxygen Flow Rate 2 2 1 06/14/23 22:05 06/14/23 23:13 06/14/23 23:15 Temperature Pulse Rate 61 Pulse Rate [Pulse Oximeter] 68 Respiratory Rate 18 18 Blood Pressure Blood Pressure [Le ft Forearm] Blood Pressure [Ri ght Arm] 103/62 Pulse Oximetry 93 93 Oxygen Delivery Me thod Nasal Cannula Nasal Cannula Oxygen Flow Rate 0.5 0.5 06/14/23 23:16 06/15/23 03:51 Temperature 97.9 F Pulse Rate Pulse Rate [Pulse Oximeter] 60 Respiratory Rate 18 20 Blood Pressure Blood Pressure [Le ft Forearm] Blood Pressure [Ri ght Arm] 130/69 Pulse Oximetry 95 Oxygen Delivery Me thod Room Air Oxygen Flow Rate Labs Labs: Laboratory Results - last 24 hr 06/14/23 06/14/23 06/14/23 16:10 16:30 16:40 WBC 12.67 H RBC 4.42 Hgb 13.9 Hct 44.3 MCV 100 MCH 31 MCHC 31 L RDW Coeff of Mandeep 13.6 Plt Count 259 Neut % (Auto) 94.8 H Lymph % (Auto) 0.9 L [place] % (Auto) 3.2 Eos % (Auto) 0.5 Baso % (Auto) 0.1 Neut # (Auto) 12.00 H Lymph # (Auto) 0.10 L [place] # (Auto) 0.40 Eos # (Auto) 0.10 Baso # (Auto) 0.00 Abs Immat Gran (auto) 0.10 Imm/Tot Granulo (auto) 0.5 INR 1.92 H VBG pH 7.450 H VBG pCO2 39 L VBG pO2 < 30.1 VBG HCO3 27 Sodium 135 Potassium 3.5 L Chloride 103 Carbon Dioxide 25 Anion Gap 7 BUN 19 Creatinine 0.9 Estimated Creat Clear 37.01 Estimated GFR 63 Glucose 105 Lactate 2.5 H Calcium 8.9 Magnesium 1.8 Total Bilirubin 1.0 AST 15 ALT 7 Alkaline Phosphatase 96 Troponin I < 0.01 L C-Reactive Protein 2.8 H NT-Pro-B Natriuret Pep 4650 Total Protein 7.9 Albumin 4.3 Lipase 46 Procalcitonin 0.16 Urine Color Yellow Urine Appearance Cloudy A Urine pH 8.0 Ur Specific [place] 1.015 Urine Protein 1+ A Urine Glucose (UA) Negative Urine Ketones Negative Urine Blood Trace-intact A Urine Nitrite Positive A Urine Bilirubin Negative Urine Urobilinogen 0.2 Ur Leukocyte Esterase 3+ A Urine RBC 0-2 Urine WBC >100 A Ur Squamous Epith Cells Many A Other Sediment Few A Urine Bacteria Many A Urine Yeast Few A SARS-CoV-2 (PCR) Negative SARS-CoV-2 Influenza Type A (PCR) Negative PCR FLU A Influenza Type B (PCR) Negative PCR FLU B RSV (PCR) Negative PCR RSV POC Troponin I 06/14/23 06/14/23 06/15/23 16:45 19:20 06:00 WBC 7.64 RBC 3.47 L Hgb 11.0 L Hct 34.8 MCV 100 MCH 32 MCHC 32 RDW Coeff of Mandeep 13.7 Plt Count 193 Neut % (Auto) 86.0 H Lymph % (Auto) 2.1 L [place] % (Auto) 9.3 Eos % (Auto) 2.1 Baso % (Auto) 0.1 Neut # (Auto) 6.60 Lymph # (Auto) 0.20 L [place] # (Auto) 0.70 Eos # (Auto) 0.16 Baso # (Auto) 0.01 Abs Immat Gran (auto) 0.03 Imm/Tot Granulo (auto) 0.4 INR 1.83 H VBG pH 7.446 H VBG pCO2 40 VBG pO2 49.9 H VBG HCO3 28 Sodium 135 Potassium 3.4 L Chloride 107 Carbon Dioxide 28 Anion Gap 0 L BUN 16 Creatinine 0.7 Estimated Creat Clear 37.01 Estimated GFR 85 Glucose 90 Lactate 2.3 H 0.8 Calcium 8.2 L Magnesium Total Bilirubin 0.6 AST 12 ALT 4 Alkaline Phosphatase 66 Troponin I C-Reactive Protein NT-Pro-B Natriuret Pep 8950 Total Protein 5.9 L Albumin 3.0 L Lipase Procalcitonin Urine Color Urine Appearance Urine pH Ur Specific [place] Urine Protein Urine Glucose (UA) Urine Ketones Urine Blood Urine Nitrite Urine Bilirubin Urine Urobilinogen Ur Leukocyte Esterase Urine RBC Urine WBC Ur Squamous Epith Cells Other Sediment Urine Bacteria Urine Yeast SARS-CoV-2 (PCR) Influenza Type A (PCR) Influenza Type B (PCR) RSV (PCR) POC Troponin I 0.02
[2023-06-15 08:44] LABS: C Reactive Protein* 6.2 mg/dL (0.5-1.0)
[2023-06-15 08:53] LABS: Troponin I* 0.01 ng/mL (0.01-0.04)
[2023-06-15] MEDS: SODIUM CHLORIDE 0.9 % (FLUSH) 10 ML SYRINGE 5 ML IVF ×2 (09:06→21:18)
[2023-06-15] MEDS: POTASSIUM CHLORIDE 10 MEQ CAPSULE ER 20 MEQ PO (09:07)
[2023-06-15] MEDS: guaiFENesin 100 MG/ML CUP PO (09:07)
[2023-06-15] MEDS: FLUOXETINE HCL 10 MG CAPSULE 30 MG PO (09:07)
[2023-06-15] MEDS: GABAPENTIN 100 MG CAPSULE PO ×3 (09:08→21:17)
[2023-06-15] MEDS: CARBIDOPA-LEVODOPA 25-100 TABLET 1 TAB PO ×3 (09:08→21:17)
[2023-06-15] MEDS: FUROSEMIDE 20 MG TABLET 60 MG PO (09:08)
[2023-06-15] MEDS: WARFARIN 3 MG TABLET PO (09:08)
[2023-06-15] MEDS: LOSARTAN POTASSIUM 50 MG TABLET PO ×2 (09:08→21:17)
[2023-06-15] MEDS: METOPROLOL TARTRATE 25 MG TABLET PO ×2 (09:08→21:17)
--- NOTE | 2023-06-15 14:07 | PC.SOCIAL ---
Discharge planning: grocery worker met with pt today in her room. Pt feels good about returning back to [facility] when ready for discharge with [facility] in place. Pt was thankful for the check-in. PT is reporting that they don't see a need for increased services for the pt at this time. Social work to follow-up as needed.
--- NOTE | 2023-06-15 15:01 | PC.NURSE ---
End of shift note [id number]: Patient A&Ox3 throughout nursing shift. Patient tolerating activity well and ambulates Ax1 with walker and gait belt. Patient gets fatigued easily with activity. Vitals stable during tx. Pt HR irregular due to a. fib (baseline). Patient receiving IV Ancef for UTI. Wound care completed to L) lower leg wound. Pt tolerated well. Will continue to implement plan of care.
[2023-06-16] VITALS (7 sets, daily range): BP systolic 149–184; BP diastolic 67–91; PULSE 73–90; RESP 16–20; TEMP 36.6–37; O2SAT 83–95
[2023-06-16] MEDS: CEFAZOLIN 1 GM in 0.9 % SODIUM CHLORIDE Mini-bag 100 ML IVPB (04:44)
[2023-06-16 06:16] LABS: Hematocrit 37.5 % (33.0-51.0); Mean Corpuscular HGB Conc 32 gm/dL (32-36); Mean Corpuscular Hemoglobin 32 pg (26-34); Mean Corpuscular Volume 99 fL (80-100); Platelet Count* 199 K/uL (140-440); Red Blood Count 3.78 m/uL (4.00-5.20); White Blood Count* 9.11 K/uL (4.50-11.00)
[2023-06-16 06:30] LABS: Slide Review Reflex No
[2023-06-16 06:33] LABS: Chloride* 108 mmol/L (96-114); Potassium* 3.3 mmol/L (3.6-5.1); Sodium* 137 mmol/L (135-149)
[2023-06-16 06:35] LABS: Creatinine* 0.7 mg/dL (0.5-1.5); Est. Creatinine Clearance* 37.01; Estimated Glomerular Filt Rate 85 ml/min
[2023-06-16 06:36] LABS: Anion Gap 3 mEq/L (7-15); Blood Urea Nitrogen* 16 mg/dL (7-30); Carbon Dioxide* 26 mmol/L (20-32); Glucose* 131 mg/dL (60-115)
[2023-06-16 06:37] LABS: Calcium* 8.2 mg/dL (8.4-10.6)
[2023-06-16 06:39] LABS: C Reactive Protein* 6.5 mg/dL (0.5-1.0)
[2023-06-16 07:19] LABS: INR 1.59 (0.91-1.10)
[2023-06-16] MEDS: WARFARIN 3 MG TABLET PO (08:32)
[2023-06-16] MEDS: LOSARTAN POTASSIUM 50 MG TABLET PO ×2 (08:37→20:57)
[2023-06-16] MEDS: GABAPENTIN 100 MG CAPSULE PO ×3 (08:37→20:57)
[2023-06-16] MEDS: CARBIDOPA-LEVODOPA 25-100 TABLET 1 TAB PO ×3 (08:38→20:57)
[2023-06-16] MEDS: SODIUM CHLORIDE 0.9 % (FLUSH) 10 ML SYRINGE 5 ML IVF ×2 (08:38→20:59)
[2023-06-16] MEDS: FLUOXETINE HCL 10 MG CAPSULE 30 MG PO (08:38)
[2023-06-16] MEDS: FUROSEMIDE 20 MG TABLET 60 MG PO (08:38)
[2023-06-16] MEDS: METOPROLOL TARTRATE 25 MG TABLET PO ×2 (08:38→20:57)
[2023-06-16] MEDS: POTASSIUM CHLORIDE 10 MEQ CAPSULE ER 20 MEQ PO (08:38)
--- NOTE | 2023-06-16 10:33 | P.IMPN_ITS ---
Progress Note: A&P Assessment and plan (1) Atrial fibrillation with rapid ventricular response: Problem details: - RVR resolved, back to the 70's. feels better. 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 - continue Metoprolol and Warfarin Status: Acute (2) Fever: Problem details: - meets SIRS criteria with WBC of >12, RR 28 on ED presentation, HR 112, temperature 100.9 (NOW RESOLVED) - source is likely both the cellulitis, UTI. - cellulitis resolved; UTI was not sensitive to current abx. CHANGE TO CIPRO 06/15 Status: Acute (3) UTI (urinary tract infection): Problem details: - history of these, has previously grown Proteus that is sensitive to Cefazolin - received Ceftriaxone in ED, will transition to Cefazolin on 06/13 to cover cellulitis (UC NOT SENSITIVE TO EITHER) Status: Acute (4) Cellulitis: Problem details: - known BLE venous stasis with worsening erythema superiorly on L - Ancef (06/14/23) - erythema RESOLVED Status: Acute (5) Venous stasis dermatitis of both lower extremities: Status: Acute (6) Parkinson disease: Problem details: - mildly progressive Parkinson's disease, treated with Sinemet - follows with Dr. Scott of Neurology Status: Acute (7) Depression: Problem details: prozac (bereavement related) Status: Acute (8) Aortic stenosis: Problem details: - TTE in July 2022: normal LV size with preserved EF of 60-65%, mild , mild MR. [id number] tricuspid regurgitation, normal pulmonary pressures - appears to have mild CHF exacerbation by history with prominent pulmonary vasculature on admission imaging - will repeat TTE to evaluate fluid status, hold off on maintenance IVFs at this time given risk of fluid overload - continue daily am Lasix and monitor Is/Os closely Status: Acute (9) Warfarin anticoagulation: Problem details: - afib - pharmacy consult; daily INR, goal 2-3 Status: Acute Subjective Date Seen: 06/16/23 Interval history: Daily Progress Note - Hospital Medicine Day #: 3 CC: Coughing with emesis may be due to CHF exacerbation, UTI and cellulitis (IV Ancef) OVERNIGHT UPDATES FROM STAFF & MED, LAB, IMAGING UPDATES Pt felt suddenly weak and needed assistance (easy stand) from the bathroom overnight. No vomiting. No fever. No tachycardia. CBC reflects a down trending white blood cell count 12.6 down to 7.6 Hemoglobin is down to 12 from 13.9 however the 11 and low 12 seem to be her baseline she might of been hemoconcentrated yesterday. PH 7.446. No CO2 retention. Bicarb normal. Potassium is a touch low at 3.3, normal renal function, normal electrolytes. Lactate is normal now, peaked at 2.5 which was in the ER BNP has been as high as 12,300, most recently has been in the 3 thousands. Presented yesterday at 460 in is 8900 4.15. Weight stable. CRP was 2.8 on ER admission, pro count was negative. CRP up to 6.2 --> 6.5 Troponin was undetectable yesterday and today. 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 Blood culture x2, MRSA EKG showed AFib with RVR. Rate was 120 the time, rate is now down into the 70s. Objective: well. NAD. clear with history and routine. But states he feels more tired and less energy this am. Vitals: see above Lungs: Clear. Cardiac: S1S2. Regular rate skin: pretibial: thickened chronic stasis dermatitis noted. mild erythema noted yesterday is resolved. Disposition/Potential discharge - Likely to return to previous living situation. Today I spent 50minutes seeing the patient, reviewing Expanse and EPIC notes/diagnostics, discussing the care plan with our care time that includes social work, PT/OT, pharmacy, RT, residential and documenting my impressions and plan in the medical record. Exam Const: Vital Signs, click to edit/add: Vital Signs - 24 hr 06/15/23 11:00 06/15/23 15:00 06/15/23 15:00 Temperature 97.9 F 97.7 F Pulse Rate Pulse Rate [Pulse Oximeter] 59 L 75 Respiratory Rate 20 20 20 Blood Pressure [Ri ght Arm] 157/62 H 188/83 H Pulse Oximetry 96 96 96 Oxygen Delivery Me thod Room Air Room Air Room Air Oxygen Flow Rate 06/15/23 15:00 06/15/23 15:00 06/15/23 16:09 Temperature 98.1 F Pulse Rate 77 Pulse Rate [Pulse Oximeter] 75 Respiratory Rate 20 Blood Pressure [Ri ght Arm] Pulse Oximetry Oxygen Delivery Me thod Oxygen Flow Rate 06/15/23 19:00 06/15/23 20:30 06/15/23 23:00 Temperature 98.1 F Pulse Rate Pulse Rate [Pulse Oximeter] 90 89 Respiratory Rate 20 20 Blood Pressure [Ri ght Arm] 168/86 H Pulse Oximetry 100 89 Oxygen Delivery Me thod Room Air Nasal Cannula Oxygen Flow Rate 2 06/15/23 23:00 06/16/23 00:30 06/16/23 00:30 Temperature 98.6 F Pulse Rate 73 Pulse Rate [Pulse Oximeter] 89 89 Respiratory Rate 20 Blood Pressure [Ri ght Arm] 166/83 H Pulse Oximetry 83 L Oxygen Delivery Me thod Room Air Oxygen Flow Rate 06/16/23 03:00 06/16/23 07:06 06/16/23 08:37 Temperature 98.6 F Pulse Rate 86 Pulse Rate [Pulse Oximeter] 88 Respiratory Rate 20 18 Blood Pressure [Ri ght Arm] 169/84 H Pulse Oximetry 95 92 Oxygen Delivery Me thod OxyMask Nasal Cannula Oxygen Flow Rate 3 2 06/16/23 08:37 Temperature 98.3 F Pulse Rate Pulse Rate [Pulse Oximeter] 79 Respiratory Rate 18 Blood Pressure [Ri ght Arm] 149/78 H Pulse Oximetry 92 Oxygen Delivery Me thod Nasal Cannula Oxygen Flow Rate 2 Labs Labs: Laboratory Results - last 24 hr 06/16/23 06:07 WBC 9.11 RBC 3.78 L Hgb 12.0 Hct 37.5 MCV 99 MCH 32 MCHC 32 Plt Count 199 INR 1.59 H Sodium 137 Potassium 3.3 L Chloride 108 Carbon Dioxide 26 Anion Gap 3 L BUN 16 Creatinine 0.7 Estimated Creat Clear 37.01 Estimated GFR 85 Glucose 131 H Calcium 8.2 L C-Reactive Protein 6.5 H
--- NOTE | 2023-06-16 10:43 | PC.SOCIAL ---
Addendum entered by CR Soliman 06/16/23 13:56: Discharge planning: slurry worker sent updated notes to Nikole at [facility] on the pt per her request. Social work to follow-up as needed. Addendum entered by CR Soliman 06/16/23 11:52: Discharge planning: slurry worker also notified Megan at [facility] about pt remaining in the hospital for another night. Social work to follow-up as needed. Original Note: Discharge planning: slurry worker notified Nikole at [facility] today that the pt will be staying in the hospital another night. Social work to follow-up as needed.
[2023-06-16] MEDS: CIPROFLOXACIN 250 MG TABLET PO ×2 (11:57→20:57)
[2023-06-16] MEDS: guaiFENesin 100 MG/ML CUP PO ×2 (17:46→20:57)
[2023-06-16] MEDS: OXYCODONE 5 MG TABLET PO (21:59)
--- NOTE | 2023-06-16 22:50 | PC.NURSE ---
End of Shift: Pt pleasant and cooperative throughout shift. Has a dry cough, requested cough drops, guaifenesin administered *2. Pt reported relief. Pain reported between 2-4 in left leg. Well controlled with one 2.5mg dose of oxycodone. Tolerating regular diet well. Incontinent with voiding x3, one continent BM.
[2023-06-17] VITALS (7 sets, daily range): BP systolic 147–187; BP diastolic 67–102; PULSE 62–80; RESP 18; TEMP 36.4–36.9; O2SAT 80–97
[2023-06-17 06:39] LABS: Albumin* 3.4 g/dL (3.3-5.0); Chloride* 103 mmol/L (96-114); Potassium* 3.2 mmol/L (3.6-5.1); Sodium* 136 mmol/L (135-149)
[2023-06-17 06:41] LABS: Creatinine* 0.6 mg/dL (0.5-1.5); Est. Creatinine Clearance* 37.01; Estimated Glomerular Filt Rate 88 ml/min
[2023-06-17 06:42] LABS: Anion Gap 5 mEq/L (7-15); Blood Urea Nitrogen* 20 mg/dL (7-30); Carbon Dioxide* 28 mmol/L (20-32); Glucose* 99 mg/dL (60-115); Phosphorus* 3.3 mg/dL (2.5-4.5)
[2023-06-17 06:43] LABS: Calcium* 8.3 mg/dL (8.4-10.6)
[2023-06-17 06:48] LABS: INR 1.38 (0.91-1.10); Prothrombin Time 17.9 Seconds
--- NOTE | 2023-06-17 06:49 | PC.NURSE ---
Pt alert and oriented x3. Afebrile. Pt is on 1.5 L of O2 to maintain stats of 88% and higher. Pt reports?2/10 pain in left leg, pain medications offered pt refused. Pt had x1 incontinent void, brief was soaked, pt cleaned up, new gown and linen given and brief change. Pt is up A1/SBA with walker and gait belt. Pt slept throughout most of night. ?
[2023-06-17 07:00] LABS: C Reactive Protein* 11.2 mg/dL (0.5-1.0)
[2023-06-17] MEDS: POTASSIUM CHLORIDE 10 MEQ CAPSULE ER 40 MEQ PO (09:41)
[2023-06-17] MEDS: FLUOXETINE HCL 10 MG CAPSULE 30 MG PO (09:43)
[2023-06-17] MEDS: SODIUM CHLORIDE 0.9 % (FLUSH) 10 ML SYRINGE 5 ML IVF (09:43)
[2023-06-17] MEDS: CIPROFLOXACIN 250 MG TABLET PO (09:44)
[2023-06-17] MEDS: GABAPENTIN 100 MG CAPSULE PO (09:44)
[2023-06-17] MEDS: FUROSEMIDE 20 MG TABLET 60 MG PO (09:44)
[2023-06-17] MEDS: LOSARTAN POTASSIUM 50 MG TABLET PO (09:45)
[2023-06-17] MEDS: METOPROLOL TARTRATE 25 MG TABLET PO (09:45)
[2023-06-17] MEDS: WARFARIN 3 MG TABLET PO (09:47)
[2023-06-17] MEDS: CARBIDOPA-LEVODOPA 25-100 TABLET 1 TAB PO (09:47)
--- NOTE | 2023-06-17 10:07 | P.IMPN_ITS ---
Progress Note: A&P Assessment and plan (1) Atrial fibrillation with rapid ventricular response: Problem details: - RVR resolved, back to the 70's. feels better. 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 NYHA class 3. ECHO during this admission demonstrates worsening degree of aortic stenosis, enlarging left atrium, severely increased pulmonary hypertension. These changes are new when compared to an echocardiogram in 2022. [facility] Cardiology consult was completed 06/16/2023-euvolemic status, oxygen supplementation necessary to prevent recurrent hospitalizations and exacerbations of CHF. Status: Acute (3) Pulmonary hypertension: Problem details: per TTE 06/23 51mmHG+RAP Status: Acute (4) Aortic stenosis: Problem details: -gradient increasing from 6365-6511. Status: Acute (5) Warfarin anticoagulation: Problem details: - afib - pharmacy consult; daily INR, goal 2-3 Status: Acute (6) Fever: Problem details: - Meets SIRS criteria with WBC of >12, RR 28 on ED presentation, HR 112, temperature 100.9 (NOW RESOLVED) - source is likely both the cellulitis, UTI. - cellulitis resolved; UTI was not sensitive to current abx. CHANGE TO CIPRO 06/15 Status: Acute (7) UTI (urinary tract infection): Problem details: - history of these, has previously grown Proteus that is sensitive to Cefazolin - received Ceftriaxone in ED, will transition to Cefazolin on 06/13 to cover cellulitis (UC NOT SENSITIVE TO EITHER) Status: Acute (8) Cellulitis: Problem details: - known BLE venous stasis with worsening erythema superiorly on L - Ancef (06/14/23) - erythema RESOLVED Status: Acute (9) Venous stasis dermatitis of both lower extremities: Status: Acute (10) Parkinson disease: Problem details: - mildly progressive Parkinson's disease, treated with Sinemet - follows with Dr. Scott of Neurology Status: Acute (11) Depression: Problem details: prozac (bereavement related) Status: Acute Subjective Date Seen: 06/17/23 Interval history: Daily Progress Note - Hospital Medicine Day #: 4 CC: Coughing with emesis may be due to CHF exacerbation, UTI and cellulitis (IV Ancef - now on cipro) OVERNIGHT UPDATES FROM STAFF & MED, LAB, IMAGING UPDATES pt had a much better night. feels stronger. has needed oxygen on/off to keep sats >90% CBC reflects a down trending white blood cell count 12.6 down to 7.6 Hemoglobin is down to 12 from 13.9 however the 11 and low 12 seem to be her baseline she might of been hemoconcentrated yesterday. PH 7.446. No CO2 retention. Bicarb normal. Potassium is a touch low at 3.2 (doubled PO dose 06/16), normal renal function, normal electrolytes. Lactate is normal now, peaked at 2.5 which was in the ER BNP has been as high as 12,300, most recently has been in the 3 thousands. At admission 4650, 06/14 it was 8950. weight stable. weight downtrending. CRP was 2.8 on ER admission, pro count was negative. CRP up to 6.2 --> 6.5 --> 11.2 Troponin has been undetectable. 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 Blood culture x2, MRSA EKG showed AFib with RVR. Rate was 120 the time, rate is now down into the 70s. I completed curbside with cardiology 06/15. Essentially: Thick heart with mod , Mod TR, increasing right sided pressures -no significant syncope concerns -at risk for diastolic heart failure so be sure she is evolumic (weight at goal, o2 requirement unchanged, edema baseline) continue current cares; no specific med changes or intervention indicated. I completed curbside with cardiology: Thick heart with mod , Mod TR, increasing right sided pressures -no significant syncope concerns -at risk for diastolic heart failure so be sure she is evolumic (weight at goal, o2 requirement unchanged, edema baseline) continue current cares; no specific med changes or intervention indicated. July 2022 Final Impressions: 1. Normal LV size, mildly increased wall thickness, normal global systolic function with an estimated EF of 60 - 65%. 2. Mildly enlarged left atrium. 3. The aortic valve is trileaflet, sclerotic and calcified, mild stenosis(mean gradient of 12 mm Hg) and no regurgitation. 4. The mitral valve is sclerotic, mild mitral regurgitation. 5. Mild-moderate tricuspid regurgitation. 6. Normal estimated pulmonary pressures by tricuspid regurgitation velocity and right atrial pressure (23 mmHg plus RAP). 7. Compared to the prior study of 09/12/2020, there is no significant change. This admission, June 2023 Final Impressions: 1. Normal LV size, moderately increased wall thickness, normal global systolic function with an estimated EF of 60 - 65%. 2. Right ventricular cavity size is mildly enlarged, global systolic RV function is normal. 3. The aortic valve is trileaflet and calcified, moderate stenosis and mild regurgitation. The aortic valve peak velocity is 2.9 m/s, the peak gradient is 34 mmHg, and the mean gradient is 19 mmHg. The aortic valve area is 0.95 cm?? with a dimensionless index of 0.29. The stroke volume index is 31.4 ml/m??. 4. The mitral valve is sclerotic, mild mitral regurgitation. 5. Mitral stenosis with mildly increased mean gradient of 3.9 mmHg at a heart rate of 60. 6. Mild-moderate tricuspid regurgitation. 7. Severely enlarged left atrium. 8. Dilated coronary sinus. 9. Severely increased estimated pulmonary pressures by tricuspid regurgitation velocity and right atrial pressure (51 mmHg plus RAP). Objective: well. NAD. No respiratory distress. Vitals: see above Lungs: Clear. Cardiac: S1S2. Regular rate skin: pretibial: thickened chronic stasis dermatitis noted. mild erythema noted yesterday is resolved. Disposition/Potential discharge - Likely to return to previous living situation. Today I spent 50minutes seeing the patient, reviewing Expanse and EPIC notes/diagnostics, discussing the care plan with our care time that includes social work, PT/OT, pharmacy, RT, fpc and documenting my impressions and plan in the medical record. Exam Const: Vital Signs, click to edit/add: Vital Signs - 24 hr 06/16/23 11:55 06/16/23 15:00 06/16/23 15:00 Temperature 98.0 F Pulse Rate 80 Pulse Rate [Apical ] 73 74 Pulse Rate [Pulse Oximeter] Respiratory Rate 16 16 Blood Pressure [Ri ght Arm] 175/78 H Pulse Oximetry 93 Oxygen Delivery Me thod Room Air Oxygen Flow Rate 06/16/23 15:00 06/16/23 15:00 06/16/23 19:00 Temperature 98.0 F 98 F Pulse Rate Pulse Rate [Apical ] 74 Pulse Rate [Pulse Oximeter] 90 Respiratory Rate 18 18 16 Blood Pressure [Ri ght Arm] 184/67 H 166/91 H Pulse Oximetry 93 93 95 Oxygen Delivery Me thod Room Air Room Air Room Air Oxygen Flow Rate 06/17/23 00:57 06/17/23 00:57 06/17/23 00:57 Temperature 98.4 F Pulse Rate 64 Pulse Rate [Apical ] Pulse Rate [Pulse Oximeter] 76 Respiratory Rate 18 18 Blood Pressure [Ri ght Arm] 187/75 H Pulse Oximetry 97 Oxygen Delivery Me thod Room Air Oxygen Flow Rate 2 06/17/23 00:57 06/17/23 04:11 06/17/23 04:45 Temperature 97.5 F L Pulse Rate Pulse Rate [Apical ] Pulse Rate [Pulse Oximeter] 80 68 Respiratory Rate 18 18 Blood Pressure [Ri ght Arm] 170/102 H 163/84 H Pulse Oximetry 97 94 91 Oxygen Delivery Me thod Room Air Room Air Nasal Cannula Oxygen Flow Rate 2 1.5 1.5 06/17/23 07:45 Temperature Pulse Rate 62 Pulse Rate [Apical ] Pulse Rate [Pulse Oximeter] Respiratory Rate Blood Pressure [Ri ght Arm] Pulse Oximetry Oxygen Delivery Me thod Oxygen Flow Rate Labs Labs: Laboratory Results - last 24 hr 06/17/23 06:15 INR 1.38 H Sodium 136 Potassium 3.2 L Chloride 103 Carbon Dioxide 28 Anion Gap 5 L BUN 20 Creatinine 0.6 Estimated Creat Clear 37.01 Estimated GFR 88 Glucose 99 Calcium 8.3 L Phosphorus 3.3 C-Reactive Protein 11.2 H Albumin 3.4
[2023-06-17] MEDS: guaiFENesin 100 MG/ML CUP PO (10:58)
--- NOTE | 2023-06-17 12:48 | PC.SOCIAL ---
Discharge planning: Pt will return to [facility] today to [facility] with home care resumed for wound care. Pt will also return to [facility] with oxygen and that was all set-up for her here in the hospital. The [facility] van will be picking the pt up at 1:00pm for her return home. All the needed documents were sent to [facility] for resumption of services and to [facility] for their records. Social work to follow-up as needed.
--- NOTE | 2023-06-17 13:36 | PC.NURSE ---
Patient stable throughout entire shift. Patient ambulates SBA/Ax1 with walker. Appetite good and patient denies nausea. Patient receiving oral antibiotics for UTI. Wound care completed to L) ankle stasis wound per order. While completing wound care, new open area present near current chronic wound (below on inner ankle bone). Pt had complained of pain in area on 06/15/23 and Mepilex applied to sore area. Today under Mepilex over reddened area, open area noted and scant serous drainage noted on Mepilex dressing. Wound cleansed with Vashe and new Mepilex applied. Hospitalist notified. Patient DC'd to [facility] van. Patient DC'd with home oxygen therapy. No concerns at discharge.
--- NOTE | 2023-06-17 13:51 | PC.NURSE ---
Addendum to previous note: New wound noted on L) ankle 1.5 cm x 1.5 cm.
== END 2023-06-17 13:05 | DRG 689 ==
LOC: ED 17:21 → MEDSURG 18:03
PROVIDERS: Family Medicine; Admitting Provider Family Medicine; Emergency Provider Family Medicine; PCP Family Medicine; Visit Provider Family Medicine
DX: N39.0 Urinary tract infection, site not specified (principal); I50.33 Acute on chronic diastolic (congestive) heart failure; L03.116 Cellulitis of left lower limb; I48.20 Chronic atrial fibrillation, unspecified; I83.228 Varicose veins of left lower extremity with both ulcer of other part of lower extremity and inflammation; L97.829 Non-pressure chronic ulcer of other part of left lower leg with unspecified severity; I83.218 Varicose veins of right lower extremity with both ulcer of other part of lower extremity and inflammation; L97.819 Non-pressure chronic ulcer of other part of right lower leg with unspecified severity; L03.115 Cellulitis of right lower limb; I11.0 Hypertensive heart disease with heart failure; G20.A1 Parkinson's disease without dyskinesia, without mention of fluctuations; Z79.01 Long term (current) use of anticoagulants; I08.3 Combined rheumatic disorders of mitral, aortic and tricuspid valves; I27.20 Pulmonary hypertension, unspecified; G47.33 Obstructive sleep apnea (adult) (pediatric); E66.01 Morbid (severe) obesity due to excess calories; I89.0 Lymphedema, not elsewhere classified; G89.29 Other chronic pain; Z91.81 History of falling; F43.21 Adjustment disorder with depressed mood; B96.4 Proteus (mirabilis) (morganii) as the cause of diseases classified elsewhere; Z87.891 Personal history of nicotine dependence; Z68.35 Body mass index [BMI] 35.0-35.9, adult
CPT/HCPCS: 36415; 71045; 80048; 80053; 80069; 81001; 82803; 83605; 83690; 83735; 83880; 84145; 84484; 85025; 85027; 85610; 86140; 87040; 87081; 87086; 87186; 87631; 93005; 93306; 94761; 97161; 97165; 97597; 99284; A9270; J0690; J0696; J7050

== ENCOUNTER 2023-06-19 11:33 | Outpatient (CLI) | payer MEDICARE, BC, SELFPAY | END 2023-06-19 11:34 | disposition home or self-care (01) | LOC: WOUND 11:33 | PROVIDERS: PCP Family Medicine; Visit Provider Nurse Practitioner Family | DX: I87.312 Chronic venous hypertension (idiopathic) with ulcer of left lower extremity (principal); L97.822 Non-pressure chronic ulcer of other part of left lower leg with fat layer exposed; I73.9 Peripheral vascular disease, unspecified; I89.0 Lymphedema, not elsewhere classified | CPT/HCPCS: 97597 ==

== ENCOUNTER 2023-06-26 11:25 | Outpatient (CLI) | payer MEDICARE, BC, SELFPAY | END 2023-06-26 11:26 | disposition home or self-care (01) | LOC: WOUND 11:26 | PROVIDERS: PCP Family Medicine; Visit Provider Nurse Practitioner Family | DX: I87.312 Chronic venous hypertension (idiopathic) with ulcer of left lower extremity (principal); I73.9 Peripheral vascular disease, unspecified; L97.822 Non-pressure chronic ulcer of other part of left lower leg with fat layer exposed; I89.0 Lymphedema, not elsewhere classified | CPT/HCPCS: 97597 ==

== ENCOUNTER 2023-07-03 11:27 | Outpatient (CLI) | payer MEDICARE, BC, SELFPAY | END 2023-07-03 11:28 | disposition home or self-care (01) | LOC: WOUND 11:27 | PROVIDERS: PCP Family Medicine; Visit Provider Nurse Practitioner Family | DX: I87.312 Chronic venous hypertension (idiopathic) with ulcer of left lower extremity (principal); I73.9 Peripheral vascular disease, unspecified; L97.822 Non-pressure chronic ulcer of other part of left lower leg with fat layer exposed; I89.0 Lymphedema, not elsewhere classified | CPT/HCPCS: 15271; Q4158 ==

== ENCOUNTER 2023-07-10 11:36 | Outpatient (CLI) | payer MEDICARE, BC, SELFPAY | END 2023-07-10 11:37 | disposition home or self-care (01) | LOC: WOUND 11:37 | PROVIDERS: PCP Family Medicine; Visit Provider Nurse Practitioner Family | DX: I87.313 Chronic venous hypertension (idiopathic) with ulcer of bilateral lower extremity (principal); I73.9 Peripheral vascular disease, unspecified; I89.0 Lymphedema, not elsewhere classified; L97.822 Non-pressure chronic ulcer of other part of left lower leg with fat layer exposed; L97.812 Non-pressure chronic ulcer of other part of right lower leg with fat layer exposed | CPT/HCPCS: G0463 ==

== ENCOUNTER 2023-07-14 11:54 | Outpatient (REF) | payer MEDICARE, BC, SELFPAY ==
[2023-07-14 12:49] LABS: Chloride* 104 mmol/L (96-114); Potassium* 5.2 mmol/L (3.6-5.1); Sodium* 138 mmol/L (135-149)
[2023-07-14 12:52] LABS: Anion Gap 10 mEq/L (7-15); Blood Urea Nitrogen* 29 mg/dL (7-30); Carbon Dioxide* 24 mmol/L (20-32); Creatinine* 0.8 mg/dL (0.5-1.5); Estimated Glomerular Filt Rate 72 ml/min; Glucose* 111 mg/dL (60-115)
== END 2023-07-14 11:55 | disposition home or self-care (01) ==
LOC: NPINS 11:54
PROVIDERS: PCP Family Medicine; Visit Provider Nurse Practitioner Gerontology
DX: E87.6 Hypokalemia (principal)
CPT/HCPCS: 80048

== ENCOUNTER 2023-07-17 11:32 | Outpatient (CLI) | payer MEDICARE, BC, SELFPAY | END 2023-07-17 11:33 | disposition home or self-care (01) | LOC: WOUND 11:32 | PROVIDERS: PCP Family Medicine; Visit Provider Nurse Practitioner Family | DX: I87.312 Chronic venous hypertension (idiopathic) with ulcer of left lower extremity (principal); L97.822 Non-pressure chronic ulcer of other part of left lower leg with fat layer exposed; I89.0 Lymphedema, not elsewhere classified; I73.9 Peripheral vascular disease, unspecified; I48.20 Chronic atrial fibrillation, unspecified | CPT/HCPCS: 81001; 87086; 97597 ==

== ENCOUNTER 2023-07-24 08:10 | Outpatient (CLI) | payer MEDICARE, BC, SELFPAY | END 2023-07-24 08:11 | disposition home or self-care (01) | PROVIDERS: PCP Family Medicine; Visit Provider Physician Assistant | DX: I73.9 Peripheral vascular disease, unspecified (principal); I87.312 Chronic venous hypertension (idiopathic) with ulcer of left lower extremity; L97.822 Non-pressure chronic ulcer of other part of left lower leg with fat layer exposed; I89.0 Lymphedema, not elsewhere classified; L89.323 Pressure ulcer of left buttock, stage 3 | CPT/HCPCS: 97597 ==

== ENCOUNTER 2023-07-31 11:27 | Outpatient (CLI) | payer MEDICARE, BC, SELFPAY | END 2023-07-31 11:28 | disposition home or self-care (01) | LOC: WOUND 11:27 | PROVIDERS: PCP Family Medicine; Visit Provider Nurse Practitioner Family | DX: I87.313 Chronic venous hypertension (idiopathic) with ulcer of bilateral lower extremity (principal); I73.9 Peripheral vascular disease, unspecified; I89.0 Lymphedema, not elsewhere classified; L97.822 Non-pressure chronic ulcer of other part of left lower leg with fat layer exposed; L97.812 Non-pressure chronic ulcer of other part of right lower leg with fat layer exposed | CPT/HCPCS: 11042; G0463 ==

== ENCOUNTER 2023-08-05 14:27 | Outpatient (CLI) | payer MEDICARE, BC, SELFPAY | END 2023-08-05 14:28 | disposition home or self-care (01) | LOC: AMB 08-08 20:39 | PROVIDERS: PCP Family Medicine; Visit Provider Family Medicine | DX: R07.89 Other chest pain (principal) | CPT/HCPCS: A0425; A0429 ==

== ENCOUNTER 2023-08-05 14:51 | Inpatient (IN) | payer MEDICARE, BC, SELFPAY ==
[2023-08-05] VITALS (25 sets, daily range): BP systolic 140–199; BP diastolic 70–136; PULSE 73–100; RESP 20–24; TEMP 36.9–37.3; O2SAT 87–99; BMI 40.0; BMI 38.0
--- NOTE | 2023-08-05 15:25 | ED.GENADULT ---
HPI - General Adult General Chief complaint: Fever Stated complaint: fever Time Seen by Provider: 08/05/23 15:10 History of Present Illness HPI narrative: from [facility] assisted living . staff called for pt having temp of 101.3. pt states she feels shitty. has had cough for weeks and mutiple falls lately. sats were 84% for ems and started on O2. hx parkinsons. incont of urine upon arrival. sees wound care for lower leg wounds 87-year-old woman presenting to the emergency department resident of [facility] in assisted living. Apparently is feeling ?shitty? and had a temperature measured today 101.3. She did take some acetaminophen and does arrive afebrile at 99.2. She has been having some cough for a few weeks and some falls but does not recount any particular injury. EMS noted depressed oxygen saturations at 84%. This underlying history of Parkinson's. Was noted to be incontinent. She was seen yesterday in wound care for some lower leg insufficiency ulcers and she says they were not remarkable at that time. She is unsure what degree of redness she has on her legs. I am not able to see wound care notes. Does not having increasing pain in her legs. Denies abdominal pain. Not noting dysuria. No diarrhea. No chest pain. History of diastolic heart failure with an EF of 60 to 65% last measured. Related Data Home Medications ?Medication ?Instructions ?Recorded ?Confirmed carbidopa 25 mg-levodopa 100 mg 1 tab PO TID 08/07/22 08/18/23 tablet fluoxetine 10 mg capsule 30 mg PO DAILY 05/19/23 08/18/23 furosemide 20 mg tablet 60 mg PO DAILY 05/19/23 08/18/23 warfarin 3 mg tablet 3 mg PO 5XW 05/19/23 08/18/23 acetaminophen 325 mg tablet 975 mg PO TID 06/15/23 08/18/23 aluminum-mag hydroxide-simethicone 30 ml PO QID PRN 06/15/23 08/18/23 200 mg-200 mg-20 mg/5 mL oral susp (Advanced Antacid-Antigas) bisacodyl 10 mg rectal suppository 10 mg NE DAILY PRN 06/15/23 08/18/23 (Dulcolax (bisacodyl)) loperamide 2 mg tablet (Imodium 2 mg PO PRN PRN 06/15/23 08/18/23 A-D) magnesium hydroxide 400 mg/5 mL 30 ml PO Q48H PRN 06/15/23 08/18/23 oral suspension (Milk of Magnesia) warfarin 4 mg tablet 4 mg PO TUTH 06/15/23 08/18/23 guaifenesin 600 mg tablet, 600 mg PO BID 08/06/23 08/18/23 extended release 12 hr (Mucus Relief ER) potassium chloride 10 mEq 30 meq PO DAILY 08/18/23 08/18/23 tablet,extended release(part/cryst) Previous Rx's ?Medication ?Instructions ?Recorded metoprolol tartrate 25 mg tablet 25 mg PO BID #60 tabs 11/11/22 losartan 50 mg tablet 50 mg PO BID #60 tabs 05/21/23 doxycycline monohydrate 100 mg 100 mg PO BID 7 days #14 caps 08/20/23 capsule lidocaine 5 % topical patch 1 patch transdermal Q24H #30 ea 08/20/23 Allergies Allergy/AdvReac Type Severity Reaction Status Date / Time hydrochlorothiazide Allergy Verified 08/05/23 17:52 Sulfa (Sulfonamide Allergy Rash Verified 08/05/23 17:52 Antibiotics) Review of Systems Status of ROS: Reports: 6 or more systems reviewed and unremarkable except as noted in History and below [facility] Medical History (Updated 08/31/23 @ 10:42 by Jose Miguel Pascula MD) Chronic hypoxic respiratory failure, on home oxygen therapy ?J96.11 - Chronic respiratory failure with hypoxia (ICD-10) ?Z99.81 - Dependence on supplemental oxygen (ICD-10) Tricuspid valve regurgitation ?I07.1 - Rheumatic tricuspid insufficiency (ICD-10) Diastolic heart failure with preserved ejection fraction ?I50.30 - Unspecified diastolic (congestive) heart failure (ICD-10) Pulmonary hypertension ?I27.20 - Pulmonary hypertension, unspecified (ICD-10) Atrial fibrillation ?I48.91 - Unspecified atrial fibrillation (ICD-10) Cellulitis ?L03.90 - Cellulitis, unspecified (ICD-10) Obstructive sleep apnea ?G47.33 - Obstructive sleep apnea (adult) (pediatric) (ICD-10) Physical debility ?R53.81 - Other malaise (ICD-10) Essential hypertension ?I10 - Essential (primary) hypertension (ICD-10) Venous stasis ulcers of both lower extremities ?I83.019 - Varicose veins of right lower extremity with ulcer of unspecified site (ICD-10) ?I83.029 - Varicose veins of left lower extremity with ulcer of unspecified site (ICD-10) ?L97.919 - Non-pressure chronic ulcer of unspecified part of right lower leg with unspecified severity (ICD-10) ?L97.929 - Non-pressure chronic ulcer of unspecified part of left lower leg with unspecified severity (ICD-10) POLST (Physician Orders for Life-Sustaining Treatment) ?Z78.9 - Other specified health status (ICD-10) Aortic stenosis ?I35.0 - Nonrheumatic aortic (valve) stenosis (ICD-10) Warfarin anticoagulation ?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 (ICD-10) Parkinson disease ?G20 - Parkinson's disease (ICD-10) Lymphedema ?I89.0 - Lymphedema, not elsewhere classified (ICD-10) Chronic pain ?G89.29 - Other chronic pain (ICD-10) Cellulitis of left lower leg ?L03.116 - Cellulitis of left lower limb (ICD-10) Morbid obesity ?E66.01 - Morbid (severe) obesity due to excess calories (ICD-10) Fracture of rib ?S22.39XA - Fracture of one rib, unspecified side, initial encounter for closed fracture (ICD-10) Physical deconditioning ?R53.81 - Other malaise (ICD-10) At risk for falls ?Z91.81 - History of falling (ICD-10) Unstable gait ?R26.81 - Unsteadiness on feet (ICD-10) Opioid dependence ?F11.20 - Opioid dependence, uncomplicated (ICD-10) Chronic atrial fibrillation ?I48.20 - Chronic atrial fibrillation, unspecified (ICD-10) Depression ?F32.A - Depression, unspecified (ICD-10) Generalized OA ?M15.9 - Polyosteoarthritis, unspecified (ICD-10) Durable power of trust and estates attorney in chart Health care directive on file ?Z78.9 - Other specified health status (ICD-10) Closed right ankle fracture ?S82.891A - Other fracture of right lower leg, initial encounter for closed fracture (ICD-10) Osteoarthritis of right shoulder ?M19.011 - Primary osteoarthritis, right shoulder (ICD-10) Osteoarthritis of left shoulder ?M19.012 - Primary osteoarthritis, left shoulder (ICD-10) Right rotator cuff tear arthropathy ?M75.101 - Unspecified rotator cuff tear or rupture of right shoulder, not specified as traumatic (ICD-10) ?M12.811 - Other specific arthropathies, not elsewhere classified, right shoulder (ICD-10) Osteoarthritis of left knee ?M17.12 - Unilateral primary osteoarthritis, left knee (ICD-10) Ulcer of lower extremity ?L97.909 - Non-pressure chronic ulcer of unspecified part of unspecified lower leg with unspecified severity (ICD-10) Cellulitis of leg ?L03.119 - Cellulitis of unspecified part of limb (ICD-10) Surgical History H/O excision of mass (09/21/00) ?Z98.890 - Other specified postprocedural states (ICD-10) 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 Lives at [place], [place]. No children. Nephew, Michi Chang, is her POA ([phone]). Requests DNR/DNI resuscitation status. What is your current living situation?: I presently have a place to live Problems where you live: no known problems Problems where you live details: needs increased level of care In the past 12 months, utilities in danger of being shut off: no In past 12 months, lack of transportation kept you from medical appts, meetings, work, or getting things needed for daily living: no In the past 12 mos, have been you worried that your food would run out before you had money to buy more?: never true In the past 12 mos, the food you bought just didn't last and you didn't have money to buy more?: never true Highest level of school completed/degree received: Associate degree: academic program Smoking Status: Former smoker What tobacco products do you use: cigarettes Smoking quit date/years: >15 years ago Do you use any of these nicotine containing products: None Second hand tobacco smoke exposure: No How often do you have a drink containing alcohol: 2-4 times a month Alcohol type: beer Alcohol type details: 1 beer every Thursday at happy hour How many standard drinks containing alcohol do you have on a typical day: 1 or 2 How often do you have six or more drinks on one occasion: Never AUDIT-C Alcohol total score: 2 Non-prescribed substance use: denies use Caffeine: Yes How often does anyone, including family, friends and others, physically hurt you: never How often does anyone, including family, friends and others, insult or talk down to you: never How often does anyone, including family, friends and others, threaten you with harm: never How often does anyone, including family, friends and others, scream or curse at you: never service: No Exam Narrative: Exam Narrative: Pleasant. NAD. Able to converse without difficulty. Mildly labored in her breathing. Nasal cannula in place. At 2 L. lungs with bibasilar crepitus. 2/6 systolic murmur. Heart in mildly elevated rate in what appears to be an irregular rhythm. Abdomen is overweight soft and nontender feel extremities without difficulty. Lower extremity ulcers for which and moderate it pitting edema. Some draining wounds and mild erythema. Not clearly overtly cellulitic. Const: Vital Signs, click to edit/add: Vital Signs - 24 hr 08/05/23 14:54 08/05/23 15:01 08/05/23 15:06 Temperature 99.2 F Pulse Rate 96 Pulse Rate [Pulse Oximeter] 90 Respiratory Rate Blood Pressure 174/86 H Blood Pressure [Ri ght Upper Arm] 174/86 H Pulse Oximetry 97 97 Oxygen Delivery Me thod Nasal Cannula Oxygen Flow Rate 08/05/23 15:15 08/05/23 15:30 08/05/23 15:32 Temperature Pulse Rate 100 94 87 Pulse Rate [Pulse Oximeter] Respiratory Rate Blood Pressure 197/93 H Blood Pressure [Ri ght Upper Arm] Pulse Oximetry 95 95 99 Oxygen Delivery Me thod Oxygen Flow Rate 08/05/23 15:45 08/05/23 16:02 08/05/23 16:24 Temperature Pulse Rate 91 90 Pulse Rate [Pulse Oximeter] Respiratory Rate Blood Pressure 185/96 H Blood Pressure [Ri ght Upper Arm] Pulse Oximetry 94 89 90 Oxygen Delivery Me thod Oxygen Flow Rate 08/05/23 16:25 08/05/23 16:26 08/05/23 16:50 Temperature 99.2 F 98.4 F Pulse Rate Pulse Rate [Pulse Oximeter] Respiratory Rate 20 Blood Pressure Blood Pressure [Ri ght Upper Arm] Pulse Oximetry 92 90 Oxygen Delivery Me thod Room Air Nasal Cannula Oxygen Flow Rate 2 Documenting provider has reviewed patient's vital signs: yes Course Vital Signs Vital signs: Initial Vital Signs Temperature 99.2 F 08/05/23 14:54 Temperature Source Temporal Artery Scan 08/05/23 14:54 Pulse Rate 90 08/05/23 14:54 Blood Pressure 174/86 H 08/05/23 14:54 Blood Pressure Mean 115 H 08/05/23 14:54 Blood Pressure Position Supine 08/05/23 14:54 Pulse Oximetry 97 08/05/23 14:54 Oxygen Delivery Method Nasal Cannula 08/05/23 14:54 Vital Signs Temperature 99.2 F 08/05/23 14:54 Pulse Rate 90 08/05/23 14:54 Blood Pressure 174/86 H 08/05/23 14:54 Pulse Oximetry 97 08/05/23 14:54 Oxygen Delivery Method Nasal Cannula 08/05/23 14:54 Temperature 97.9 F 08/09/23 10:58 Pulse Rate 54 L 08/09/23 11:40 Respiratory Rate 16 08/09/23 10:58 Blood Pressure 174/74 H 08/09/23 11:40 Pulse Oximetry 93 08/09/23 10:58 Oxygen Delivery Method Room Air 08/09/23 10:58 Oxygen Flow Rate 1.5 08/09/23 03:00 Medications Administered Medications: Discontinued Medications Generic Name Dose Route Start Last Admin Trade Name Freq PRN Reason Stop Dose Admin Amoxicillin/Clavulanate Potassium 875 mg 08/09/23 13:35 08/09/23 13:42 Amoxicillin/Clavulanate 875 Mg/125 Mg Tablet PO 08/09/23 13:36 875 mg ONCE ONE Administration Azithromycin 500 mg 08/05/23 22:00 08/05/23 23:34 Azithromycin 250 Mg Tablet PO 08/05/23 22:01 500 mg ONCE ONE Administration Azithromycin 250 mg 08/06/23 21:00 08/08/23 21:03 Azithromycin 250 Mg Tablet PO 08/09/23 21:01 250 mg Q24H [place] Administration Carbidopa/Levodopa 1 tab 08/05/23 22:00 08/09/23 13:31 Carbidopa-Levodopa 25-100 Tablet PO 1 tab TID [place] Administration Diphenoxylate HCl/Atropine 1 tab 08/08/23 14:21 08/09/23 13:31 Diphenoxylate-Atrop 2.5-0.025 Tablet PO 1 tab QID PRN Administration Fluoxetine HCl 30 mg 08/06/23 09:00 08/09/23 09:16 Fluoxetine Hcl 10 Mg Capsule PO 30 mg DAILY [place] Administration Furosemide 60 mg 08/06/23 09:00 08/09/23 09:17 Furosemide 20 Mg Tablet PO 60 mg DAILY [place] Administration Furosemide 40 mg 08/06/23 14:00 08/06/23 13:50 Furosemide 10 Mg/Ml Inj IVP 08/06/23 14:01 40 mg ONCE ONE Administration Gabapentin 100 mg 08/05/23 21:15 08/09/23 13:31 Gabapentin 100 Mg Capsule PO 100 mg TID [place] Administration Guaifenesin 600 mg 08/06/23 21:00 08/09/23 09:17 Guaifenesin 600 Mg Tab.Er.12h PO 600 mg BID [place] Administration Sodium Chloride 1,000 mls @ 1,000 mls/hr 08/05/23 15:46 08/05/23 18:09 0.9 % Sodium Chloride 1000 Ml IV 08/05/23 16:45 Infused .Q1H ONE Infusion Lactated Ringer's 1,000 mls @ 1,000 mls/hr 08/05/23 17:11 08/08/23 16:42 Lactated Ringers 1000 Ml IV 08/05/23 18:10 Not Given .Q1H ONE Piperacillin Sod/Tazobactam 100 mls @ 200 mls/hr 08/05/23 17:31 08/08/23 07:10 Sod 3.375 gm/ Sodium Chloride IVPB 08/05/23 17:32 Infused ONCE ONE Infusion Sodium Chloride 1,000 mls @ 100 mls/hr 08/05/23 18:45 06/06/24 18:25 0.9 % Sodium Chloride 1000 Ml IV Infused .Q10H [place] Infusion Piperacillin Sod/Tazobactam 100 mls @ 200 mls/hr 08/06/23 08:00 08/09/23 09:49 Sod 3.375 gm/ Sodium Chloride IVPB Infused Q6H [place] Infusion IV Miscellaneous Supplies 1 each 08/06/23 09:00 08/08/23 15:51 Warfarin Rph Consult [facility] Not Given DAILY [facility] Protocol Losartan Potassium 50 mg 08/05/23 21:15 08/09/23 09:17 Losartan Potassium 50 Mg Tablet PO 50 mg BID [place] Administration Metoprolol Tartrate 5 mg 08/05/23 19:00 08/09/23 13:09 Metoprolol Tartrate 1 Mg/Ml Inj IVP Not Given Q6H [place] Metoprolol Tartrate 25 mg 08/05/23 21:15 08/09/23 09:16 Metoprolol Tartrate 25 Mg Tablet PO 25 mg BID [place] Administration Oxycodone HCl 2.5 mg 08/05/23 21:15 08/08/23 21:02 Oxycodone 5 Mg Tablet PO 2.5 mg HS [place] Administration Potassium Chloride 40 meq 08/06/23 09:00 08/09/23 09:16 Potassium Chloride 10 Meq Capsule Er PO 40 meq DAILY [place] Administration Sodium Chloride 5 ml 08/05/23 18:27 08/08/23 19:42 Sodium Chloride 0.9 % (Flush) 10 Ml Syringe IVF 5 ml .FLUSH PRN Administration Sodium Chloride 5 ml 08/05/23 21:00 08/09/23 09:17 Sodium Chloride 0.9 % (Flush) 10 Ml Syringe IVF Not Given BID [place] Sodium Chloride 250 ml 08/07/23 08:00 08/09/23 09:16 0.9 % Sodium Chloride 250 Ml IV Not Given Q24H [place] Warfarin Sodium 3 mg 08/05/23 21:15 08/05/23 23:36 Warfarin 3 Mg Tablet PO 3 mg [id number] [place] Administration Warfarin Sodium 3 mg 08/07/23 17:00 08/07/23 17:35 Warfarin 3 Mg Tablet PO 3 mg [id number] [place] Administration Warfarin Sodium 4 mg 08/06/23 17:00 08/06/23 17:26 Warfarin 2 Mg Tablet PO 4 mg [id number] [place] Administration Warfarin Sodium 4 mg 08/08/23 17:00 08/08/23 17:00 Warfarin 2 Mg Tablet PO 08/08/23 17:01 4 mg DAILYC ONE Administration Medical Decision Making MDM Narrative Medical decision making narrative: Does have history of heart failure. Would presume infectious etiology to presentation given reported temperature. She does arrive little elevated here as well. I would evaluate further though the lungs as a not convinced that the legs are the source. Procedure(s): XR chest 1V portable Accession Number(s): [id number] cc: Jose Miguel Pascual M.D.; Sofia Guerrero M.D.~ For Patients: As a result of the Century Cures Act, medical imaging exams and procedure reports are released immediately into your electronic medical record. You may view this report before your referring provider. If you have questions, please contact your health care provider. INDICATION: Cough and hypoxia. COMPARISON: 06/14/2023 chest radiograph. FINDINGS/IMPRESSION: Portable AP chest radiograph. Unchanged cardiac prominence likely reflecting mild cardiomegaly. Mild pulmonary vascular congestion and diffuse interstitial prominence, stable or slightly greater than on the prior exam. No focal lung consolidation identified. No pleural effusions. Bilateral shoulder degenerative changes. No acute osseous findings. Blood gases generally reassuring as are labs other than white count of nearly 20,000. INR subtherapeutic. Of note also lactate of 2.2 CRP also little elevated. Have consulted with our hospitalist for admission. Concern of evolving sepsis. Will need to look further for infection. Initiating Zosyn. Ordering chest CT as part of admission as requested Lab Data Lab results reviewed: Yes I reviewed the patient's lab results Labs: Lab Results 08/05/23 08/05/23 08/05/23 Range/Units 16:05 16:10 16:38 WBC 19.17 H (4.50-11.00) K/uL RBC 4.23 (4.00-5.20) m/uL Hgb 13.3 (12.0-16.0) gm/dL Hct 42.3 (33.0-51.0) % MCV 100 (80-100) fL MCH 31 (26-34) pg MCHC 31 L (32-36) gm/dL RDW Coeff of Mandeep 15.6 H (11.5-15.5) % Plt Count 303 (140-440) K/uL Neut % (Auto) 93.3 H (42.0-72.0) % Lymph % (Auto) 0.8 L (20-44) % [place] % (Auto) 5.0 (0.0-11.0) % Eos % (Auto) 0.4 (0.0-7.0) % Baso % (Auto) 0.2 (0.0-3.0) % Neut # (Auto) 17.90 H (1.7-7.0) K/uL Lymph # (Auto) 0.20 L (0.90-2.90) K/uL [place] # (Auto) 1.00 H (0.00-0.90) K/UL Eos # (Auto) 0.10 (0.00-0.50) K/uL Baso # (Auto) 0.00 (0.00-0.30) K/uL Abs Immat Gran (auto) 0.10 (0.00-0.30) K/uL Imm/Tot Granulo (auto) 0.3 % INR 1.72 H (0.91-1.10) D-Dimer Quant (PE/DVT) 0.46 (0.00-0.50) ug/ml VBG pH 7.364 (7.32-7.43) VBG pCO2 47 (40-50) mmHG VBG pO2 < 30.1 (25-47) mmHG VBG HCO3 27 (21-28) mmol/L Sodium 138 (135-149) mmol/L Potassium 4.9 (3.6-5.1) mmol/L Chloride 104 (96-114) mmol/L Carbon Dioxide 27 (20-32) mmol/L Anion Gap 7 (7-15) mEq/L BUN 23 (7-30) mg/dL Creatinine 0.7 (0.5-1.5) mg/dL Estimated Creat Clear 34.02 Estimated GFR 85 ml/min Glucose 138 H (60-115) mg/dL Lactate 2.2 H (0.5-1.9) mmol/L Calcium 9.0 (8.4-10.6) mg/dL Magnesium 2.3 (1.5-2.6) mg/dL Total Bilirubin 0.9 (0.1-1.5) mg/dL Direct Bilirubin 0.5 (0.0-0.5) mg/dL AST 16 (12-35) U/L ALT 9 (4-35) U/L Alkaline Phosphatase 108 (40-150) U/L C-Reactive Protein 1.8 H (0.5-1.0) mg/dL NT-Pro-B Natriuret Pep 4240 pg/mL Total Protein 8.0 (6.0-8.3) g/dL Albumin 4.6 (3.3-5.0) g/dL Procalcitonin 0.09 (<0.50) ng/mL Urine Color Yellow (Yellow) Urine Appearance Clear (Clear) Urine pH 5.0 (5.0-8.5) Ur Specific [place] 1.010 (1.000-1.030) Urine Protein Negative (Negative) Urine Glucose (UA) Negative (Negative) Urine Ketones Negative (Negative) Urine Blood Trace-intact A (Negative) Urine Nitrite Negative (Negative) Urine Bilirubin Negative (Negative) Urine Urobilinogen 0.2 (0.2-1.0) Ur Leukocyte Esterase Negative (Negative) Urine RBC 0-2 (0-2) Urine WBC 0-2 (0-5) Ur Squamous Epith Cells None (None-Few) Urine Bacteria None (None) Urine L. pneumophilia Ag L. pneumo Negative (Negative) Urine Strep pneumoniae Ag S. pneumo Negative (Negative) SARS-CoV-2 (PCR) Negative SARS-CoV-2 (Negative) Influenza Type A (PCR) Negative PCR FLU A (Negative) Influenza Type B (PCR) Negative PCR FLU B (Negative) RSV (PCR) Negative PCR RSV (Negative) Lab Acknowledgement 08/05/23 08/06/23 Range/Units 18:26 05:57 WBC 11.70 H (4.50-11.00) K/uL RBC 3.38 L (4.00-5.20) m/uL Hgb 10.6 L (12.0-16.0) gm/dL Hct 33.6 (33.0-51.0) % MCV 99 (80-100) fL MCH 31 (26-34) pg MCHC 32 (32-36) gm/dL RDW Coeff of Mandeep 15.4 (11.5-15.5) % Plt Count 248 (140-440) K/uL Neut % (Auto) 89.3 H (42.0-72.0) % Lymph % (Auto) 2.1 L (20-44) % [place] % (Auto) 5.3 (0.0-11.0) % Eos % (Auto) 1.5 (0.0-7.0) % Baso % (Auto) 0.2 (0.0-3.0) % Neut # (Auto) 10.40 H (1.7-7.0) K/uL Lymph # (Auto) 0.20 L (0.90-2.90) K/uL [place] # (Auto) 0.60 (0.00-0.90) K/UL Eos # (Auto) 0.20 (0.00-0.50) K/uL Baso # (Auto) 0.00 (0.00-0.30) K/uL Abs Immat Gran (auto) 0.20 (0.00-0.30) K/uL Imm/Tot Granulo (auto) 1.6 % INR 1.89 H (0.91-1.10) D-Dimer Quant (PE/DVT) (0.00-0.50) ug/ml VBG pH 7.375 (7.32-7.43) VBG pCO2 40 (40-50) mmHG VBG pO2 70.1 H (25-47) mmHG VBG HCO3 23 (21-28) mmol/L Sodium 136 (135-149) mmol/L Potassium 4.0 (3.6-5.1) mmol/L Chloride 107 (96-114) mmol/L Carbon Dioxide 24 (20-32) mmol/L Anion Gap 5 L (7-15) mEq/L BUN 19 (7-30) mg/dL Creatinine 0.7 (0.5-1.5) mg/dL Estimated Creat Clear 34.02 Estimated GFR 85 ml/min Glucose 90 (60-115) mg/dL Lactate 1.0 (0.5-1.9) mmol/L Calcium 7.8 L (8.4-10.6) mg/dL Magnesium (1.5-2.6) mg/dL Total Bilirubin 1.1 (0.1-1.5) mg/dL Direct Bilirubin (0.0-0.5) mg/dL AST 12 (12-35) U/L ALT 5 (4-35) U/L Alkaline Phosphatase 83 (40-150) U/L C-Reactive Protein 5.3 H (0.5-1.0) mg/dL NT-Pro-B Natriuret Pep 7850 pg/mL Total Protein 6.1 (6.0-8.3) g/dL Albumin 3.2 L (3.3-5.0) g/dL Procalcitonin (<0.50) ng/mL Urine Color (Yellow) Urine Appearance (Clear) Urine pH (5.0-8.5) Ur Specific [place] (1.000-1.030) Urine Protein (Negative) Urine Glucose (UA) (Negative) Urine Ketones (Negative) Urine Blood (Negative) Urine Nitrite (Negative) Urine Bilirubin (Negative) Urine Urobilinogen (0.2-1.0) Ur Leukocyte Esterase (Negative) Urine RBC (0-2) Urine WBC (0-5) Ur Squamous Epith Cells (None-Few) Urine Bacteria (None) Urine L. pneumophilia Ag (Negative) Urine Strep pneumoniae Ag (Negative) SARS-CoV-2 (PCR) (Negative) Influenza Type A (PCR) (Negative) Influenza Type B (PCR) (Negative) RSV (PCR) (Negative) Lab Acknowledgement Test Added Discharge Plan Discharge Clinical Impression: Fever, SIRS (systemic inflammatory response syndrome) Patient Disposition: Admitted As Observation Activity Level: No Restrictions and Use Walker Discharge Diet: Heart Healthy (2 gm sodium, low fat)
--- NOTE | 2023-08-05 15:44 | RESP.RT ---
Patient with Hx of Parkinson Dx, SaO2 reading unstable, 70's-mid 90's SaO2. EMS increased NC to 4 Lpm to insure patient oxygenation. Placed Nasal Alar Spo2 Sensor in right nares, reduced NC to 2 Lpm. SaO2 stabilized with good wave form and readings 89-93%.
--- NOTE | 2023-08-05 15:49 | CRLHL7_ITS ---
For Patients: As a result of the Cures Act, medical imaging exams and procedure reports are released immediately into your electronic medical record. You may view this report before your referring provider. If you have questions, please contact your health care provider. INDICATION: Cough and hypoxia. COMPARISON: 06/14/2023 chest radiograph. FINDINGS/IMPRESSION: Portable AP chest radiograph. Unchanged cardiac prominence likely reflecting mild cardiomegaly. Mild pulmonary vascular congestion and diffuse interstitial prominence, stable or slightly greater than on the prior exam. No focal lung consolidation identified. No pleural effusions. Bilateral shoulder degenerative changes. No acute osseous findings. Dictated by Zoran Fields MD @ 08/05/2023 6:23:43 PM Dictated by: Zoran Fields MD @ 08/05/2023 18:24:52 (Electronically Signed)
[2023-08-05 16:14] LABS: HCO3 VBG 27 mmol/L (21-28); PCO2 VBG 47 mmHG (40-50); PO2 VBG < 30.1 mmHG (25-47); pH VBG 7.364 (7.32-7.43)
[2023-08-05 16:19] LABS: Basophils Percent Auto 0.2 % (0.0-3.0); Eosinophils Percent Auto 0.4 % (0.0-7.0); Hematocrit 42.3 % (33.0-51.0); Hemoglobin* 13.3 gm/dL (12.0-16.0); Immature Granulocytes Pct Auto 0.3 %; Lymphocytes Percent Auto 0.8 % (20-44); Mean Corpuscular HGB Conc 31 gm/dL (32-36); Mean Corpuscular Hemoglobin 31 pg (26-34); Mean Corpuscular Volume 100 fL (80-100); Neutrophils Percent Auto 93.3 % (42.0-72.0); Platelet Count* 303 K/uL (140-440); RDW Coefficient of Variation % 15.6 % (11.5-15.5); Red Blood Count 4.23 m/uL (4.00-5.20); White Blood Count* 19.17 K/uL (4.50-11.00)
[2023-08-05 16:20] LABS: Lactate* 2.2 mmol/L (0.5-1.9)
[2023-08-05 16:21] LABS: Slide Review Reflex No
[2023-08-05 16:28] LABS: Chloride* 104 mmol/L (96-114)
[2023-08-05 16:29] LABS: Albumin* 4.6 g/dL (3.3-5.0); Sodium* 138 mmol/L (135-149)
[2023-08-05 16:30] LABS: Potassium* 4.9 mmol/L (3.6-5.1)
[2023-08-05 16:32] LABS: Alkaline Phosphatase* 108 U/L (40-150); Anion Gap 7 mEq/L (7-15); Aspartate Amino Transferase* 16 U/L (12-35); Bilirubin Direct* 0.5 mg/dL (0.0-0.5); Bilirubin Total* 0.9 mg/dL (0.1-1.5); Carbon Dioxide* 27 mmol/L (20-32); Creatinine* 0.7 mg/dL (0.5-1.5); Est. Creatinine Clearance* 34.02; Estimated Glomerular Filt Rate 85 ml/min
[2023-08-05 16:33] LABS: Alanine Aminotransferase* 9 U/L (4-35); Blood Urea Nitrogen* 23 mg/dL (7-30); Glucose* 138 mg/dL (60-115); Magnesium* 2.3 mg/dL (1.5-2.6)
[2023-08-05 16:34] LABS: D Dimer Quantitative* 0.46 ug/ml (0.00-0.50)
[2023-08-05 16:35] LABS: C Reactive Protein* 1.8 mg/dL (0.5-1.0)
[2023-08-05 16:44] LABS: Appearance Urine Clear (Clear); Bilirubin Urine Negative (Negative); Blood Urine Trace-intact (Negative); Color Urine Yellow (Yellow); Glucose Urine Negative (Negative); Ketones Urine Negative (Negative); Leukocyte Esterase Urine Negative (Negative); Nitrite Urine Negative (Negative); Protein Urine Negative (Negative); Urobilinogen Urine 0.2 (0.2-1.0)
[2023-08-05 16:44] LABS: NT Pro B Type NatriureticPept* 4240 pg/mL
[2023-08-05] MEDS: 0.9 % SODIUM CHLORIDE 1000 ml 1,000 ML IV (16:56)
[2023-08-05 17:17] LABS: PCR FLU A Negative PCR FLU A (Negative); PCR FLU B Negative PCR FLU B (Negative); PCR RSV Negative PCR RSV (Negative); SARS PCR* Negative SARS-CoV-2 (Negative)
[2023-08-05 17:20] LABS: RBC Urine 0-2 (0-2); WBC Urine 0-2 (0-5)
--- NOTE | 2023-08-05 17:27 | CRLHL7_ITS ---
For Patients: As a result of the Century Cures Act, medical imaging exams and procedure reports are released immediately into your electronic medical record. You may view this report before your referring provider. If you have questions, please contact your health care provider. INDICATION: Fever, cough. TECHNIQUE: CT chest PE was acquired with 100 cc Omnipaque 350 IV contrast. COMPARISON: None. FINDINGS: Heart and vasculature: Contrast opacification of the pulmonary arterial tree is adequate. No sign of pulmonary embolism. Cardiomegaly. Coronary artery and thoracic aorta atherosclerotic calcification. Thoracic aorta and pulmonary artery are normal in caliber. No pericardial effusion. Lungs and pleura: Few patchy ground-glass opacities within the central and inferior right upper lobe. Mild interlobular septal thickening within the lung bases. Tiny right pleural effusion with passive atelectasis. No pneumothorax. Lymph nodes/mediastinum: Several enlarged pretracheal and multiple prominent bihilar and left prevascular lymph nodes. Chest wall: No masses. Upper abdomen: 5 mm nonobstructing left nephrolith. Bones: Accentuated thoracic kyphosis. Otherwise, unremarkable for age. IMPRESSION: 1. No pulmonary embolism. 2. Few patchy ground-glass opacities within the central and inferior right upper lobe, most compatible with infectious or inflammatory process. 3. Pretracheal lymphadenopathy and multiple prominent bihilar and left prevascular lymph nodes. These may be reactive to the infectious/inflammatory process within the right upper lobe; however, recommend follow-up imaging after appropriate therapy to evaluate for interval change since an underlying malignancy/metastatic disease can not be entirely excluded. 4. Mild bibasilar interlobular septal thickening could represent superimposed mild pulmonary edema. Please note that all CT scans at this facility use dose modulation, iterative reconstruction, and/or weight-based dosing when appropriate to reduce radiation dose to as low as reasonably achievable. Dictated by Nelson Benoit MD @ 08/05/2023 7:45:57 PM (Electronically Signed)
[2023-08-05] MEDS: PIPERACILLIN/TAZOBACTAM 3.375 GM in 0.9 % SODIUM CHLORIDE Mini-bag 100 ML IVPB (18:20)
--- NOTE | 2023-08-05 18:26 | PM.IMHP1 ---
Hospitalist- H&P: HPI History of Present Illness Date Seen: 08/05/23 Chief complaint: syncope Narrative: ADMISSION HISTORY AND PHYSICAL - HOSPITALIST Chief Complaint: FEVERS AND CHILLS HPI: Carmel is an 87 year who is well known to our service. I rounded on her in May. I discharged her mid May. I know her well. Her main medical issues include chronic venous stasis skin breakdown on her legs, worsening congestive heart failure, frequent UTIs and mobility issues related to Parkinson's. Today she reports was in her usual state of health this morning and able to eat a good breakfast. Mid day she started to feel chills and developed a fever of 101.7 recorded at her assisted living facility. EMS was summoned. There was some concern regarding her cough and sputum production over the last few days WELL an increasing streaky redness and warmth of her left leg. She has been admitted multiple times for left leg cellulitis. Wound care nursing does come to her assisted living twice a week. They were just there on 08/02. Her wounds were draining but not obviously infected. She is also hypoxic. This isn't totally new. She was hypoxic at her last hospitalization and this was attributed to ongoing heart failure. She was sent home on home O2. She said over the days and weeks since her admission she no longer needed oxygen in the company picked up the tank. When EMS arrived today she was 86% on room air. ER COURSE: X-ray, labs. Redness in her left leg was outlined. She was given a dose of Zosyn. Her lactate was mildly elevated and her white blood cell count was markedly elevated. She was given 1 L of fluid. Hospital medicine team was asked to admit for cellulitis and possible respiratory infection. Her portable chest x-ray was essentially stable, CTA is pending of her chest at the time of admission. CODE STATUS: DNR/DNI EMERGENCY CONTACT PLAN: Primary Contact Name Michi Chang Rel To Zainab Gardenr Cell I've updated the PFSH, medications and allergies in the Expanse tabs. INVESTIGATIONS: LABS/MICRO/ECG/IMAGING Arrival blood pressure 174/86, 197/93, 185/96 Pulse 87 to 100 Respiratory rate 18 to 20 Pulse ox 90 to 95 on 2 L EMS picked her up with sats around 86% 97.7 kg up from 96.3 at last discharge No fever recorded here but 101.7 documented at assisted living CBC reflects a leukocytosis of 19.17. 93.3% neutrophils Hemoglobin is normal, 13.3 Platelet count is 303 INR 1.7. D-dimer 0.46 Blood gas is reassuring was 7.364 for pH. PCO2 47. Electrolytes are normal. Glucose 138 Lactate 2.2 CRP 1.8, procal normal. BNP 4240, last checked in May it was 8950. However this 3-4000 len is her baseline. UA is reassuring. Trace blood. Negative nitrite and leukocyte esterase. Quad respiratory screen negative Portable chest x-ray Unchanged cardiac prominence likely reflecting mild cardiomegaly. Mild pulmonary vascular congestion and diffuse interstitial prominence, stable or slightly greater than on the prior exam. No focal lung consolidation identified. No pleural effusions. Bilateral shoulder degenerative changes. No acute osseous findings. CTA 1. No pulmonary embolism. 2. Few patchy ground-glass opacities within the central and inferior right upper lobe, most compatible with infectious or inflammatory process. 3. Pretracheal lymphadenopathy and multiple prominent bihilar and left prevascular lymph nodes. These may be reactive to the infectious/inflammatory process within the right upper lobe; however, recommend follow-up imaging after appropriate therapy to evaluate for interval change since an underlying malignancy/metastatic disease can not be entirely excluded. 4. Mild bibasilar interlobular septal thickening could represent superimposed mild pulmonary edema. REVIEW OF SYSTEMS: 12-point ROS completed with patient and negative unless otherwise stated in HPI or below. PHYSICAL EXAM: CONSTITUTIONAL: Conversive, good historian. A/O. Knows setting and context. SHE LOOKS HER BASELINE, NOT ILL. VITAL SIGNS: see record. HEENT: Normocephalic, atraumatic. PERRL, EOMI, conjunctivae pink, no scleral icterus. Ears and nose externally normal. Pharynx normal. NECK: No JVD. No carotid bruit, no thyromegaly, no adenopathy. CHEST: Clear to auscultation bilaterally NO OBVIOUS WHEEZING OR RESP DISTRESS HEART: HOLOSYSTOLIC MURMUR; IRREGULAR. Edema TRACE-1+ MUSCULOSKELETAL: No gross joint deformity or swelling. NEURO: Cranial nerves intact. Grossly intact. No asymmetric findings. SKIN: LEFT LEG HAS WARMTH AND ERYTHEMA THAT EXTENDS TO HER THIGH (WHICH IS NEW) - OUTLINED IN THE ED. WOUNDS ARE DRY AND COVERED WITH LARGE BANDAIDS. PSYCHIATRIC: Euthymic. ADMIT TO MEDSURG: FLOOR CARE DVT: WARFARIN GI: PO intake Time spent: Today I spent 75 minutes seeing the patient, discussing the patient with ER staff, reviewing Expanse and EPIC notes/diagnostics, discussing the care plan with our care time that includes social work, PT/OT, pharmacy, RT, mcfp and documenting my impressions and plan in the medical record. [facility] Medical History (Updated 08/05/23 @ 21:29 by Alicia Wong MD) Cellulitis ?L03.90 - Cellulitis, unspecified (ICD-10) Obstructive sleep apnea ?G47.33 - Obstructive sleep apnea (adult) (pediatric) (ICD-10) Physical debility ?R53.81 - Other malaise (ICD-10) Essential hypertension ?I10 - Essential (primary) hypertension (ICD-10) Venous stasis ulcers of both lower extremities ?I83.019 - Varicose veins of right lower extremity with ulcer of unspecified site (ICD-10) ?I83.029 - Varicose veins of left lower extremity with ulcer of unspecified site (ICD-10) ?L97.919 - Non-pressure chronic ulcer of unspecified part of right lower leg with unspecified severity (ICD-10) ?L97.929 - Non-pressure chronic ulcer of unspecified part of left lower leg with unspecified severity (ICD-10) POLST (Physician Orders for Life-Sustaining Treatment) ?Z78.9 - Other specified health status (ICD-10) Aortic stenosis ?I35.0 - Nonrheumatic aortic (valve) stenosis (ICD-10) Warfarin anticoagulation ?Z79.01 - 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 (ICD-10) Parkinson disease ?G20 - Parkinson's disease (ICD-10) Lymphedema ?I89.0 - Lymphedema, not elsewhere classified (ICD-10) Chronic pain ?G89.29 - Other chronic pain (ICD-10) Cellulitis of left lower leg ?L03.116 - Cellulitis of left lower limb (ICD-10) Morbid obesity ?E66.01 - Morbid (severe) obesity due to excess calories (ICD-10) Fracture of rib ?S22.39XA - Fracture of one rib, unspecified side, initial encounter for closed fracture (ICD-10) Physical deconditioning ?R53.81 - Other malaise (ICD-10) At risk for falls ?Z91.81 - History of falling (ICD-10) Unstable gait ?R26.81 - Unsteadiness on feet (ICD-10) Opioid dependence ?F11.20 - Opioid dependence, uncomplicated (ICD-10) Chronic atrial fibrillation ?I48.20 - Chronic atrial fibrillation, unspecified (ICD-10) Depression ?F32.A - Depression, unspecified (ICD-10) Generalized OA ?M15.9 - Polyosteoarthritis, unspecified (ICD-10) Durable power of compliance attorney in chart Health care directive on file ?Z78.9 - Other specified health status (ICD-10) Closed right ankle fracture ?S82.891A - Other fracture of right lower leg, initial encounter for closed fracture (ICD-10) Osteoarthritis of right shoulder ?M19.011 - Primary osteoarthritis, right shoulder (ICD-10) Osteoarthritis of left shoulder ?M19.012 - Primary osteoarthritis, left shoulder (ICD-10) Right rotator cuff tear arthropathy ?M75.101 - Unspecified rotator cuff tear or rupture of right shoulder, not specified as traumatic (ICD-10) ?M12.811 - Other specific arthropathies, not elsewhere classified, right shoulder (ICD-10) Osteoarthritis of left knee ?M17.12 - Unilateral primary osteoarthritis, left knee (ICD-10) Ulcer of lower extremity ?L97.909 - Non-pressure chronic ulcer of unspecified part of unspecified lower leg with unspecified severity (ICD-10) Cellulitis of leg ?L03.119 - Cellulitis of unspecified part of limb (ICD-10) Atrial fibrillation ?I48.91 - Unspecified atrial fibrillation (ICD-10) Surgical History H/O excision of mass (09/21/00) ?Z98.890 - Other specified postprocedural states (ICD-10) 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 Lives at [place], [place]. No children. Nephew, Michi Chang, is her POA ([phone]). Requests DNR/DNI resuscitation status. What is your current living situation?: I presently have a place to live Problems where you live: no known problems Problems where you live details: NA In the past 12 months, utilities in danger of being shut off: no In past 12 months, lack of transportation kept you from medical appts, meetings, work, or getting things needed for daily living: no In the past 12 mos, have been you worried that your food would run out before you had money to buy more?: never true In the past 12 mos, the food you bought just didn't last and you didn't have money to buy more?: never true Highest level of school completed/degree received: Associate degree: academic program Smoking Status: Former smoker What tobacco products do you use: cigarettes Smoking quit date/years: >15 years ago Do you use any of these nicotine containing products: None Second hand tobacco smoke exposure: No How often do you have a drink containing alcohol: 2-4 times a month Alcohol type: beer Alcohol type details: 1 beer every Thursday at happy hour How many standard drinks containing alcohol do you have on a typical day: 1 or 2 How often do you have six or more drinks on one occasion: Never AUDIT-C Alcohol total score: 2 Non-prescribed substance use: denies use Caffeine: Yes How often does anyone, including family, friends and others, physically hurt you: never How often does anyone, including family, friends and others, insult or talk down to you: never How often does anyone, including family, friends and others, threaten you with harm: never How often does anyone, including family, friends and others, scream or curse at you: never service: No Meds Home Medications and Allergies Home Medications ?Medication ?Instructions ?Recorded ?Confirmed ?Type carbidopa 25 mg-levodopa 100 mg 1 tab PO TID 08/07/22 08/05/23 History tablet gabapentin 100 mg capsule 100 mg PO TID 08/08/22 08/05/23 History fluoxetine 10 mg capsule 30 mg PO DAILY 05/19/23 08/05/23 History furosemide 20 mg tablet 60 mg PO DAILY 05/19/23 08/05/23 History warfarin 3 mg tablet 3 mg PO 6XW 05/19/23 08/05/23 History acetaminophen 325 mg tablet 975 mg PO TID 06/15/23 08/05/23 History aluminum-mag hydroxide-simethicone 30 ml PO QID PRN 06/15/23 06/15/23 History 200 mg-200 mg-20 mg/5 mL oral susp (Advanced Antacid-Antigas) bisacodyl 10 mg rectal suppository 10 mg [place] DAILY PRN 06/15/23 06/15/23 History (Dulcolax (bisacodyl)) loperamide 2 mg tablet (Imodium 2 mg PO PRN PRN 06/15/23 08/05/23 History A-D) magnesium hydroxide 400 mg/5 mL 30 ml PO Q48H PRN 06/15/23 08/05/23 History oral suspension (Milk of Magnesia) oxycodone 5 mg tablet 2.5 mg PO HS 06/15/23 08/05/23 History warfarin 4 mg tablet 2 mg PO TU 06/15/23 08/05/23 History Allergies Allergy/AdvReac Type Severity Reaction Status Date / Time hydrochlorothiazide Allergy Verified 08/05/23 17:52 Sulfa (Sulfonamide Allergy Rash Verified 08/05/23 17:52 Antibiotics) Exam Const: Vital Signs, click to edit/add: Vital Signs - 24 hr 08/05/23 14:54 08/05/23 15:01 08/05/23 15:06 Temperature 99.2 F Pulse Rate 96 Pulse Rate [Pulse Oximeter] 90 Respiratory Rate Blood Pressure 174/86 H Blood Pressure [Ri ght Upper Arm] 174/86 H Pulse Oximetry 97 97 Oxygen Delivery Me thod Nasal Cannula Oxygen Flow Rate 08/05/23 15:15 08/05/23 15:30 08/05/23 15:32 Temperature Pulse Rate 100 94 87 Pulse Rate [Pulse Oximeter] Respiratory Rate Blood Pressure 197/93 H Blood Pressure [Ri ght Upper Arm] Pulse Oximetry 95 95 99 Oxygen Delivery Me thod Oxygen Flow Rate 08/05/23 15:45 08/05/23 16:02 08/05/23 16:24 Temperature Pulse Rate 91 90 Pulse Rate [Pulse Oximeter] Respiratory Rate Blood Pressure 185/96 H Blood Pressure [Ri ght Upper Arm] Pulse Oximetry 94 89 90 Oxygen Delivery Me thod Oxygen Flow Rate 08/05/23 16:25 08/05/23 16:26 08/05/23 16:31 Temperature 99.2 F Pulse Rate 96 Pulse Rate [Pulse Oximeter] Respiratory Rate 20 20 Blood Pressure Blood Pressure [Ri ght Upper Arm] Pulse Oximetry 92 90 90 Oxygen Delivery Me thod Room Air Nasal Cannula Oxygen Flow Rate 2 08/05/23 16:32 08/05/23 16:47 08/05/23 16:50 Temperature 98.4 F Pulse Rate 87 87 Pulse Rate [Pulse Oximeter] Respiratory Rate Blood Pressure 199/113 H Blood Pressure [Ri ght Upper Arm] Pulse Oximetry 91 92 Oxygen Delivery Me thod Oxygen Flow Rate 08/05/23 17:00 08/05/23 17:02 08/05/23 17:15 Temperature Pulse Rate 91 84 83 Pulse Rate [Pulse Oximeter] Respiratory Rate Blood Pressure 191/136 H Blood Pressure [Ri ght Upper Arm] Pulse Oximetry 93 94 90 Oxygen Delivery Me thod Oxygen Flow Rate 08/05/23 17:30 08/05/23 18:08 08/05/23 18:15 Temperature Pulse Rate 97 94 89 Pulse Rate [Pulse Oximeter] Respiratory Rate Blood Pressure Blood Pressure [Ri ght Upper Arm] Pulse Oximetry 87 L 88 87 L Oxygen Delivery Me thod Oxygen Flow Rate Hospitalist - H&P: Result Labs Labs: Short CBC 08/05/23 Range/Units 16:05 WBC 19.17 H (4.50-11.00) K/uL Hgb 13.3 (12.0-16.0) gm/dL Hct 42.3 (33.0-51.0) % Plt Count 303 (140-440) K/uL BMP 08/05/23 16:05 Sodium 138 Potassium 4.9 Chloride 104 Carbon Dioxide 27 BUN 23 Creatinine 0.7 Glucose 138 H Calcium 9.0 Liver Function 08/05/23 Range/Units 16:05 Total Bilirubin 0.9 (0.1-1.5) mg/dL Direct Bilirubin 0.5 (0.0-0.5) mg/dL AST 16 (12-35) U/L ALT 9 (4-35) U/L Alkaline Phosphatase 108 (40-150) U/L Albumin 4.6 (3.3-5.0) g/dL Urine 08/05/23 Range/Units 16:38 Urine Color Yellow (Yellow) Urine Appearance Clear (Clear) Urine pH 5.0 (5.0-8.5) Ur Specific [place] 1.010 (1.000-1.030) Urine Protein Negative (Negative) Urine Glucose (UA) Negative (Negative) Assessment and Plan Assessment and plan (1) Hypoxic respiratory failure: Problem comment: acute on chronic. chronic from long standing /diastolic heart failure. acute RUL pneumonia/early sepsis monitor. pH is normal. no CO2 retention. lactate only mildly elevated. Status: Acute (2) Right upper lobe pneumonia: Problem comment: zosyn + azithromycin oxygen to titrate >90% strep pneumo and Legionella neg follow WBC Status: Acute (3) Cellulitis: Problem comment: - known BLE venous stasis with worsening erythema superiorly on L - Zosyn - continue wound care Status: Acute (4) Diastolic heart failure with preserved ejection fraction: Problem comment: chronic. NYHA class 3. weight goal: 97 kg -some mild heart failure signs on imaging. will hold on extra lasix tonight. regular dose ordered in the am. day team to see if they think she needs more diuresis than baseline. ECHO during previous admission demonstrates worsening degree of aortic stenosis, enlarging left atrium, severely increased pulmonary hypertension. These changes are new when compared to an echocardiogram in 2022. Final Impressions: 1. Normal LV size, moderately increased wall thickness, normal global systolic function with an estimated EF of 60 - 65%. 2. Right ventricular cavity size is mildly enlarged, global systolic RV function is normal. 3. The aortic valve is trileaflet and calcified, moderate stenosis and mild regurgitation. The aortic valve peak velocity is 2.9 m/s, the peak gradient is 34 mmHg, and the mean gradient is 19 mmHg. The aortic valve area is 0.95 cm?? with a dimensionless index of 0.29. The stroke volume index is 31.4 ml/m??. 4. The mitral valve is sclerotic, mild mitral regurgitation. 5. Mitral stenosis with mildly increased mean gradient of 3.9 mmHg at a heart rate of 60. 6. Mild-moderate tricuspid regurgitation. 7. Severely enlarged left atrium. 8. Dilated coronary sinus. 9. Severely increased estimated pulmonary pressures by tricuspid regurgitation velocity and right atrial pressure (51 mmHg plus RAP). [facility] consult was completed 06/16/2023-euvolemic status, oxygen supplementation necessary to prevent recurrent hospitalizations and exacerbations of CHF. Status: Acute (5) Essential hypertension: Problem comment: -Metoprolol 25mg BID and Losartan 50mg continued -prn metoprolol IV hypertensive urgency Status: Acute (6) Aortic stenosis: Problem comment: -gradient increasing from 8778-1989. Status: Acute (7) Pulmonary hypertension: Problem comment: per TTE 06/23 51mmHG+RAP Status: Acute (8) Warfarin anticoagulation: Problem comment: - afib - pharmacy consult; daily INR, goal 2-3 Status: Acute (9) Parkinson disease: Problem comment: - mildly progressive Parkinson's disease, treated with Sinemet - follows with Dr. Scott of Neurology Status: Acute (10) Obstructive sleep apnea: Problem comment: - moderately severe with apnea-hypopnea index of 55. Patient does not like using CPAP. Likely causing some chronic hypoxia without dyspnea Status: Acute (11) Physical debility: Problem comment: -therapies ordered -will likely need resumption of home health plan Status: Acute (12) Depression: Problem comment: prozac (bereavement related) Status: Acute
[2023-08-05 18:50] LABS: INR 1.72 (0.91-1.10); Prothrombin Time 21.4 Seconds
[2023-08-05 19:10] LABS: Procalcitonin* 0.09 ng/mL (<0.50)
[2023-08-05 19:42] LABS: Legionella pneumo Ag Urine L. pneumo Negative (Negative); S pneumo Ag Urine S. pneumo Negative (Negative)
[2023-08-05] MEDS: 0.9 % SODIUM CHLORIDE 1000 ml 1,000 ML 100 ML IV (19:49)
[2023-08-05] MEDS: METOPROLOL TARTRATE 1 MG/ML inj 5 MG IVP (19:49)
[2023-08-05] MEDS: METOPROLOL TARTRATE 25 MG TABLET PO (23:32)
[2023-08-05] MEDS: OXYCODONE 5 MG TABLET 2.5 MG PO (23:32)
[2023-08-05] MEDS: GABAPENTIN 100 MG CAPSULE PO (23:33)
[2023-08-05] MEDS: LOSARTAN POTASSIUM 50 MG TABLET PO (23:33)
[2023-08-05] MEDS: AZITHROMYCIN 250 MG TABLET 500 MG PO (23:34)
[2023-08-05] MEDS: CARBIDOPA-LEVODOPA 25-100 TABLET 1 TAB PO (23:34)
[2023-08-05] MEDS: WARFARIN 3 MG TABLET PO (23:36)
[2023-08-06] VITALS (12 sets, daily range): BP systolic 108–157; BP diastolic 51–93; PULSE 52–79; RESP 18–20; TEMP 36.4–36.7; O2SAT 88–95; BMI 37.7
--- NOTE | 2023-08-06 00:15 | PC.NURSE ---
End of shift report: Alert and oriented x 4. Pain reported to mid and low back, received scheduled 2.5mg oxycodone. O2 at 3L per NC to maintain sats>90%, denies any shortness of breath. Dressings to BLE clean, dry and intact. Right gluteal crease patient has deep purple discoloration with small 1cm round open area, MD updated of open area and wound consult placed to update wound clinic of patients admit status. Redness to LLE maintained within outline made by ER.
[2023-08-06 06:21] LABS: HCO3 VBG 23 mmol/L (21-28); PCO2 VBG 40 mmHG (40-50); PO2 VBG 70.1 mmHG (25-47); pH VBG 7.375 (7.32-7.43)
[2023-08-06 06:25] LABS: Basophils Percent Auto 0.2 % (0.0-3.0); Eosinophils Percent Auto 1.5 % (0.0-7.0); Hematocrit 33.6 % (33.0-51.0); Hemoglobin* 10.6 gm/dL (12.0-16.0); Immature Granulocytes Pct Auto 1.6 %; Lymphocytes Percent Auto 2.1 % (20-44); Mean Corpuscular HGB Conc 32 gm/dL (32-36); Mean Corpuscular Hemoglobin 31 pg (26-34); Mean Corpuscular Volume 99 fL (80-100); Monocytes Percent Auto 5.3 % (0.0-11.0); Neutrophils Percent Auto 89.3 % (42.0-72.0); Platelet Count* 248 K/uL (140-440); RDW Coefficient of Variation % 15.4 % (11.5-15.5); Red Blood Count 3.38 m/uL (4.00-5.20)
[2023-08-06 06:28] LABS: Slide Review Reflex No
[2023-08-06] MEDS: 0.9 % SODIUM CHLORIDE 1000 ml 1,000 ML 100 ML IV (06:30)
[2023-08-06 06:43] LABS: Albumin* 3.2 g/dL (3.3-5.0); Chloride* 107 mmol/L (96-114); Sodium* 136 mmol/L (135-149)
[2023-08-06 06:46] LABS: Anion Gap 5 mEq/L (7-15); Aspartate Amino Transferase* 12 U/L (12-35); Bilirubin Total* 1.1 mg/dL (0.1-1.5); Carbon Dioxide* 24 mmol/L (20-32); Creatinine* 0.7 mg/dL (0.5-1.5); Est. Creatinine Clearance* 34.02; Estimated Glomerular Filt Rate 85 ml/min; Total Protein* 6.1 g/dL (6.0-8.3)
[2023-08-06 06:47] LABS: Alanine Aminotransferase* 5 U/L (4-35); Alkaline Phosphatase* 83 U/L (40-150); Blood Urea Nitrogen* 19 mg/dL (7-30); Calcium* 7.8 mg/dL (8.4-10.6); Glucose* 90 mg/dL (60-115)
[2023-08-06 06:49] LABS: C Reactive Protein* 5.3 mg/dL (0.5-1.0)
[2023-08-06 06:52] LABS: INR 1.89 (0.91-1.10)
--- NOTE | 2023-08-06 06:57 | PC.NURSE ---
Pt is alert and oriented x3 with some forgetfulness. Afebrile. Pt reports 2/10 pain in back, pain managed with repositioning from bed to chair per pt request. Pt was on 3L of oxygen via nasal cannula to maintain stats of 90% and greater, weaned pt down to 2L pt maintaining O2 stats between 90-91%. Pt is up SBA/A1 with walker and gait belt. Pt turn and repositioned throughout night.
[2023-08-06 07:00] LABS: NT Pro B Type NatriureticPept* 7850 pg/mL
--- NOTE | 2023-08-06 07:32 | P.IMPN_ITS ---
Progress Note: A&P Assessment and plan (1) Hypoxic respiratory failure: Problem details: Acute on chronic from long standing /diastolic heart failure. 87% O2 sats on admission. Acute RUL pneumonia/early sepsis pH is normal. no CO2 retention. lactate only mildly elevated - repeat pending Oxygen demand improving Status: Acute (2) Right upper lobe pneumonia: Problem details: CT shows few patchy ground-glass opacities within the central and inferior right upper lobe Continue zosyn + azithromycin Mucinex b.i.d., aerobika Oxygen to titrate >90%, wean as able. RT for home oxygen assessment prior to discharge Strep pneumo and Legionella neg WBC downtrending Status: Acute (3) Cellulitis: Problem details: Acute on chronic, recurrent, lower extremities Known BLE venous stasis with worsening erythema superiorly on L Continue Zosyn Anthony wraps to bilateral lower extremities (does not tolerate compression stockings) Continue wound care - wound care consult placed Status: Acute (4) Venous stasis ulcers of both lower extremities: Problem details: Followed by Navdeep Peña MD. She does not wear compression stockings as not tolerated. No previous rest pain or claudication. She does use lymphedema pumps daily, double layer compression wraps and leg elevation. I do not see documentation that she underwent sclerotherapy in 2022. Status: Acute (5) Diastolic heart failure with preserved ejection fraction: Problem details: chronic. NYHA class 3. weight goal: 97 kg -some mild heart failure signs on imaging. BNP trended up. Will give additional IV dose Lasix (08/05) in addition to home dosing, monitor ECHO during previous admission demonstrates worsening degree of aortic stenosis, enlarging left atrium, severely increased pulmonary hypertension. These changes are new when compared to an echocardiogram in 2022. Final Impressions: 1. Normal LV size, moderately increased wall thickness, normal global systolic function with an estimated EF of 60 - 65%. 2. Right ventricular cavity size is mildly enlarged, global systolic RV function is normal. 3. The aortic valve is trileaflet and calcified, moderate stenosis and mild regurgitation. The aortic valve peak velocity is 2.9 m/s, the peak gradient is 34 mmHg, and the mean gradient is 19 mmHg. The aortic valve area is 0.95 cm?? with a dimensionless index of 0.29. The stroke volume index is 31.4 ml/m??. 4. The mitral valve is sclerotic, mild mitral regurgitation. 5. Mitral stenosis with mildly increased mean gradient of 3.9 mmHg at a heart rate of 60. 6. Mild-moderate tricuspid regurgitation. 7. Severely enlarged left atrium. 8. Dilated coronary sinus. 9. Severely increased estimated pulmonary pressures by tricuspid regurgitation velocity and right atrial pressure (51 mmHg plus RAP). [facility] Cardiology consult was completed 06/16/2023-euvolemic status, oxygen supplementation necessary to prevent recurrent hospitalizations and exacerbations of CHF. Status: Acute (6) Essential hypertension: Problem details: Metoprolol 25mg BID and Losartan 50mg continued -prn metoprolol IV hypertensive urgency Status: Acute (7) Atrial fibrillation: Problem details: Rate controlled with Metoprolol, Anticoagulated with warfarin Status: Acute (8) Warfarin anticoagulation: Problem details: Pharmacy to manage, daily INR, goal 2-3 Status: Acute (9) Aortic stenosis: Problem details: -gradient increasing from 5025-7008. Status: Acute (10) Pulmonary hypertension: Problem details: per TTE 06/23 51mmHG+RAP CT shows mild bibasilar interlobular septal thickening likely representing superimposed mild pulmonary edema Status: Acute (11) Parkinson disease: Problem details: - mildly progressive Parkinson's disease, treated with Sinemet - follows with Dr. Scott of Neurology Status: Acute (12) Obstructive sleep apnea: Problem details: - moderately severe with apnea-hypopnea index of 55. Patient does not like using CPAP. Likely causing some chronic hypoxia without dyspnea Status: Acute (13) Physical debility: Problem details: -therapies ordered -will likely need resumption of home health plan Status: Acute (14) Depression: Problem details: prozac (bereavement related) Status: Acute (15) Lymphadenopathy: Problem details: Incidental finding. CT shows pretracheal lymphadenopathy and multiple prominent bihilar in left prevascular lymph nodes. Questionable reactive infectious/inflammatory process. Radiology recommending follow-up imaging after appropriate therapy to evaluate for interval change as underlying malignancy/metastatic disease cannot be entirely excluded Status: Acute Time Spent With Patient Total time spent: Total time spent caring for the patient today was 45 minutes. This includes time spent for the visit reviewing the chart, time spent during the visit, time spent after the visit and documentation and planning in coordination of care. Subjective Date Seen: 08/06/23 Interval history: Patient reports feeling better already this morning. Denies headache or dizziness. Denies chest pain, tightness. Saturating upper 90s on 1 L per nasal cannula. Continues with an occasional productive cough. Has remained afebrile. Tolerating orals without nausea vomiting. Lower extremities with chronic severe venous insufficiency/stasis. History of recurrent cellulitis. Exam Narrative: Exam Narrative: PHYSICAL EXAM General: Pleasant, conversant, NAD HEENT: Normocephalic, atraumatic, sclera white, EOMI, oral mucosa moist Cardiovascular: RRR, S1S2. Pulmonary: CTA bilaterally without rhonchi, rales, expiratory wheezes. No dyspnea on 1L Neurological: Alert, answering questions appropriately, cranial nerves intact, no focal findings Extremities: Bilateral lower extremities chronic venous insufficiency/stasis changes, rubor, erythema L>R, bandage over left lower leg wound Skin: Warm, dry. Const: Vital Signs, click to edit/add: Vital Signs - 24 hr 08/05/23 14:54 08/05/23 15:01 08/05/23 15:06 Temperature 99.2 F Pulse Rate 96 Pulse Rate [Pulse Oximeter] 90 Respiratory Rate Blood Pressure 174/86 H Blood Pressure [Ri ght Arm] Blood Pressure [Ri ght Upper Arm] 174/86 H Pulse Oximetry 97 97 Oxygen Delivery Me thod Nasal Cannula Oxygen Flow Rate 08/05/23 15:15 08/05/23 15:30 08/05/23 15:32 Temperature Pulse Rate 100 94 87 Pulse Rate [Pulse Oximeter] Respiratory Rate Blood Pressure 197/93 H Blood Pressure [Ri ght Arm] Blood Pressure [Ri ght Upper Arm] Pulse Oximetry 95 95 99 Oxygen Delivery Me thod Oxygen Flow Rate 08/05/23 15:45 08/05/23 16:02 08/05/23 16:24 Temperature Pulse Rate 91 90 Pulse Rate [Pulse Oximeter] Respiratory Rate Blood Pressure 185/96 H Blood Pressure [Ri ght Arm] Blood Pressure [Ri ght Upper Arm] Pulse Oximetry 94 89 90 Oxygen Delivery Me thod Oxygen Flow Rate 08/05/23 16:25 08/05/23 16:26 08/05/23 16:31 Temperature 99.2 F Pulse Rate 96 Pulse Rate [Pulse Oximeter] Respiratory Rate 20 20 Blood Pressure Blood Pressure [Ri ght Arm] Blood Pressure [Ri ght Upper Arm] Pulse Oximetry 92 90 90 Oxygen Delivery Me thod Room Air Nasal Cannula Oxygen Flow Rate 2 08/05/23 16:32 08/05/23 16:47 08/05/23 16:50 Temperature 98.4 F Pulse Rate 87 87 Pulse Rate [Pulse Oximeter] Respiratory Rate Blood Pressure 199/113 H Blood Pressure [Ri ght Arm] Blood Pressure [Ri ght Upper Arm] Pulse Oximetry 91 92 Oxygen Delivery Me thod Oxygen Flow Rate 08/05/23 17:00 08/05/23 17:02 08/05/23 17:15 Temperature Pulse Rate 91 84 83 Pulse Rate [Pulse Oximeter] Respiratory Rate Blood Pressure 191/136 H Blood Pressure [Ri ght Arm] Blood Pressure [Ri ght Upper Arm] Pulse Oximetry 93 94 90 Oxygen Delivery Me thod Oxygen Flow Rate 08/05/23 17:30 08/05/23 18:08 08/05/23 18:15 Temperature Pulse Rate 97 94 89 Pulse Rate [Pulse Oximeter] Respiratory Rate Blood Pressure Blood Pressure [Ri ght Arm] Blood Pressure [Ri ght Upper Arm] Pulse Oximetry 87 L 88 87 L Oxygen Delivery Me thod Oxygen Flow Rate 08/05/23 18:27 08/05/23 18:27 08/05/23 18:54 Temperature 98.5 F Pulse Rate Pulse Rate [Pulse Oximeter] 95 Respiratory Rate 20 20 Blood Pressure Blood Pressure [Ri ght Arm] 177/91 H Blood Pressure [Ri ght Upper Arm] Pulse Oximetry 93 93 93 Oxygen Delivery Me thod Nasal Cannula Nasal Cannula Oxygen Flow Rate 2 2 08/05/23 18:54 08/05/23 19:00 08/05/23 23:00 Temperature 98.5 F 98.5 F Pulse Rate Pulse Rate [Pulse Oximeter] 96 73 Respiratory Rate 20 20 24 Blood Pressure Blood Pressure [Ri ght Arm] 171/78 H 140/70 H Blood Pressure [Ri ght Upper Arm] Pulse Oximetry 93 91 91 Oxygen Delivery Me thod Nasal Cannula Nasal Cannula Nasal Cannula Oxygen Flow Rate 2 2 3 08/06/23 01:30 08/06/23 01:52 08/06/23 03:22 Temperature 97.7 F Pulse Rate 72 Pulse Rate [Pulse Oximeter] 72 65 Respiratory Rate 20 20 Blood Pressure Blood Pressure [Ri ght Arm] 122/51 L Blood Pressure [Ri ght Upper Arm] Pulse Oximetry 94 Oxygen Delivery Me thod Nasal Cannula Oxygen Flow Rate 3 08/06/23 06:36 Temperature Pulse Rate Pulse Rate [Pulse Oximeter] 56 L Respiratory Rate 18 Blood Pressure Blood Pressure [Ri ght Arm] 129/64 Blood Pressure [Ri t Upper Arm] Pulse Oximetry 90 Oxygen Delivery Me thod Nasal Cannula Oxygen Flow Rate 2 Labs Labs: Laboratory Results - last 24 hr 08/05/23 08/05/23 08/05/23 16:05 16:10 16:38 WBC 19.17 H RBC 4.23 Hgb 13.3 Hct 42.3 MCV 100 MCH 31 MCHC 31 L RDW Coeff of Mandeep 15.6 H Plt Count 303 Neut % (Auto) 93.3 H Lymph % (Auto) 0.8 L Shannon % (Auto) 5.0 Eos % (Auto) 0.4 Baso % (Auto) 0.2 Neut # (Auto) 17.90 H Lymph # (Auto) 0.20 L Shannon # (Auto) 1.00 H Eos # (Auto) 0.10 Baso # (Auto) 0.00 Abs Immat Gran (auto) 0.10 Imm/Tot Granulo (auto) 0.3 INR 1.72 H D-Dimer Quant (PE/DVT) 0.46 VBG pH 7.364 VBG pCO2 47 VBG pO2 < 30.1 VBG HCO3 27 Sodium 138 Potassium 4.9 Chloride 104 Carbon Dioxide 27 Anion Gap 7 BUN 23 Creatinine 0.7 Estimated Creat Clear 34.02 Estimated GFR 85 Glucose 138 H Lactate 2.2 H Calcium 9.0 Magnesium 2.3 Total Bilirubin 0.9 Direct Bilirubin 0.5 AST 16 ALT 9 Alkaline Phosphatase 108 C-Reactive Protein 1.8 H NT-Pro-B Natriuret Pep 4240 Total Protein 8.0 Albumin 4.6 Procalcitonin 0.09 Urine Color Yellow Urine Appearance Clear Urine pH 5.0 Ur Specific [place] 1.010 Urine Protein Negative Urine Glucose (UA) Negative Urine Ketones Negative Urine Blood Trace-intact A Urine Nitrite Negative Urine Bilirubin Negative Urine Urobilinogen 0.2 Ur Leukocyte Esterase Negative Urine RBC 0-2 Urine WBC 0-2 Ur Squamous Epith Cells None Urine Bacteria None Urine L. pneumophilia Ag L. pneumo Negative Urine Strep pneumoniae Ag S. pneumo Negative SARS-CoV-2 (PCR) Negative SARS-CoV-2 Influenza Type A (PCR) Negative PCR FLU A Influenza Type B (PCR) Negative PCR FLU B RSV (PCR) Negative PCR RSV Lab Acknowledgement 08/05/23 08/06/23 18:26 05:57 WBC 11.70 H RBC 3.38 L Hgb 10.6 L Hct 33.6 MCV 99 MCH 31 MCHC 32 RDW Coeff of Mandeep 15.4 Plt Count 248 Neut % (Auto) 89.3 H Lymph % (Auto) 2.1 L Shannon % (Auto) 5.3 Eos % (Auto) 1.5 Baso % (Auto) 0.2 Neut # (Auto) 10.40 H Lymph # (Auto) 0.20 L Shannon # (Auto) 0.60 Eos # (Auto) 0.20 Baso # (Auto) 0.00 Abs Immat Gran (auto) 0.20 Imm/Tot Granulo (auto) 1.6 INR 1.89 H D-Dimer Quant (PE/DVT) VBG pH 7.375 VBG pCO2 40 VBG pO2 70.1 H VBG HCO3 23 Sodium 136 Potassium 4.0 Chloride 107 Carbon Dioxide 24 Anion Gap 5 L BUN 19 Creatinine 0.7 Estimated Creat Clear 34.02 Estimated GFR 85 Glucose 90 Lactate Calcium 7.8 L Magnesium Total Bilirubin 1.1 Direct Bilirubin AST 12 ALT 5 Alkaline Phosphatase 83 C-Reactive Protein 5.3 H NT-Pro-B Natriuret Pep 7850 Total Protein 6.1 Albumin 3.2 L Procalcitonin Urine Color Urine Appearance Urine pH Ur Specific [place] Urine Protein Urine Glucose (UA) Urine Ketones Urine Blood Urine Nitrite Urine Bilirubin Urine Urobilinogen Ur Leukocyte Esterase Urine RBC Urine WBC Ur Squamous Epith Cells Urine Bacteria Urine L. pneumophilia Ag Urine Strep pneumoniae Ag SARS-CoV-2 (PCR) Influenza Type A (PCR) Influenza Type B (PCR) RSV (PCR) Lab Acknowledgement Test Added
[2023-08-06] MEDS: GABAPENTIN 100 MG CAPSULE PO ×3 (08:43→21:44)
[2023-08-06] MEDS: CARBIDOPA-LEVODOPA 25-100 TABLET 1 TAB PO ×3 (08:43→21:46)
[2023-08-06] MEDS: FUROSEMIDE 20 MG TABLET 60 MG PO (08:43)
[2023-08-06] MEDS: POTASSIUM CHLORIDE 10 MEQ CAPSULE ER 40 MEQ PO (08:43)
[2023-08-06] MEDS: PIPERACILLIN/TAZOBACTAM 3.375 GM in 0.9 % SODIUM CHLORIDE Mini-bag 100 ML IVPB ×3 (08:48→20:14)
[2023-08-06] MEDS: LOSARTAN POTASSIUM 50 MG TABLET PO ×2 (08:53→21:45)
[2023-08-06] MEDS: SODIUM CHLORIDE 0.9 % (FLUSH) 10 ML SYRINGE 5 ML IVF ×2 (08:55→20:05)
[2023-08-06] MEDS: FLUOXETINE HCL 10 MG CAPSULE 30 MG PO (10:00)
--- NOTE | 2023-08-06 11:28 | PC.SOCIAL ---
Addendum entered by CR Soliman 08/06/23 15:53: Discharge planning: Pt will also need a resumption of care order for home care jail services with [facility] when she discharges. If the pt discharges over the weekend, the on-call nurse for [facility] will need to be notified. Social work to follow-up as needed. Original Note: Discharge planning: production line worker connected with Shayla, head nurse at [facility], who stated that the pt is still living in [facility] of [facility] since her discharge from the hospital in June 2023. Shayla said that they plan to have the pt remain there indefinitely. production line worker updated her with discharge plans for the pt that were discussed in morning rounds. The plan is as follows: Tomorrow(Thursday) may be too early for pt to discharge, so a weekend discharge may be likely. Shayla will plan to have either herself or another nurse come to the hospital tomorrow(Thursday) to do a face to face assessment with the pt. Shayla will also check her staffing for the weekend to see if they can accommodate a weekend discharge for the pt. production line worker updated the charge nurse on duty with this information. Social work to follow-up as needed.
[2023-08-06] MEDS: FUROSEMIDE 10 MG/ML inj 40 MG IVP (13:50)
[2023-08-06] MEDS: WARFARIN 2 MG TABLET 4 MG PO (17:26)
--- NOTE | 2023-08-06 19:30 | PC.NURSE ---
End of Shift: Patient pleasant and cooperative, A&O. VSS, afebrile. SpO2 maintained above 90% on 2L via nasal canula. Held metoprolol today due to low heart rate, MD notified. Patient denies pain this shift. Tolerating regular diet. Patient was a 1 Assist to the commode, incontinent of urine sometimes. Held metoprolol today due to low heart rate, MD notified.
[2023-08-06] MEDS: METOPROLOL TARTRATE 1 MG/ML inj 5 MG IVP (20:05)
[2023-08-06] MEDS: guaiFENesin 600 MG TAB.ER.12H PO (21:44)
[2023-08-06] MEDS: METOPROLOL TARTRATE 25 MG TABLET PO (21:44)
[2023-08-06] MEDS: AZITHROMYCIN 250 MG TABLET PO (21:45)
[2023-08-06] MEDS: OXYCODONE 5 MG TABLET 2.5 MG PO (21:45)
[2023-08-07] VITALS (9 sets, daily range): BP systolic 126–178; BP diastolic 61–89; PULSE 57–72; RESP 18–20; TEMP 36.6–36.9; O2SAT 88–96
[2023-08-07] MEDS: PIPERACILLIN/TAZOBACTAM 3.375 GM in 0.9 % SODIUM CHLORIDE Mini-bag 100 ML IVPB ×4 (01:43→20:23)
[2023-08-07] MEDS: METOPROLOL TARTRATE 1 MG/ML inj 5 MG IVP ×2 (01:46→06:34)
--- NOTE | 2023-08-07 05:23 | PC.NURSE ---
Shift note: Pt is pleasant, alert and oriented. Ambulated with A1, walker and GB. Requires A2 to get to her feet but appeared relatively stable on her feet. Minimal pain of less than 4 reported. Pt continue to have bilateral erythematous swelling R>L leg. Mepilex on the open area open the ramirez. Pt preferred sleeping in the recliner. Maintained on 2L of oxygen throughout the night. Tele was A.fib. Heart rate well controlled. Systolic Bp has been persistently elevated above 140.
[2023-08-07 06:34] LABS: Hematocrit 33.9 % (33.0-51.0); Hemoglobin* 10.6 gm/dL (12.0-16.0); Mean Corpuscular HGB Conc 31 gm/dL (32-36); Mean Corpuscular Hemoglobin 31 pg (26-34); Mean Corpuscular Volume 100 fL (80-100); Platelet Count* 230 K/uL (140-440); Red Blood Count 3.38 m/uL (4.00-5.20); White Blood Count* 8.05 K/uL (4.50-11.00)
[2023-08-07 06:35] LABS: Slide Review Reflex No
[2023-08-07] MEDS: SODIUM CHLORIDE 0.9 % (FLUSH) 10 ML SYRINGE 5 ML IVF ×3 (06:35→20:23)
[2023-08-07 06:49] LABS: Chloride* 107 mmol/L (96-114); Sodium* 140 mmol/L (135-149)
[2023-08-07 06:50] LABS: Potassium* 3.8 mmol/L (3.6-5.1)
[2023-08-07 06:52] LABS: Creatinine* 0.8 mg/dL (0.5-1.5); Est. Creatinine Clearance* 34.02; Estimated Glomerular Filt Rate 72 ml/min
[2023-08-07 06:53] LABS: Anion Gap 6 mEq/L (7-15); Blood Urea Nitrogen* 22 mg/dL (7-30); Carbon Dioxide* 27 mmol/L (20-32); Glucose* 83 mg/dL (60-115)
[2023-08-07 06:54] LABS: INR 1.93 (0.91-1.10); Prothrombin Time 23.4 Seconds
[2023-08-07 06:56] LABS: C Reactive Protein* 5.2 mg/dL (0.5-1.0)
[2023-08-07] MEDS: 0.9 % SODIUM CHLORIDE 250 ml IV (09:40)
[2023-08-07] MEDS: FUROSEMIDE 20 MG TABLET 60 MG PO (09:40)
[2023-08-07] MEDS: METOPROLOL TARTRATE 25 MG TABLET PO ×2 (09:41→20:24)
[2023-08-07] MEDS: GABAPENTIN 100 MG CAPSULE PO ×3 (09:41→20:21)
[2023-08-07] MEDS: POTASSIUM CHLORIDE 10 MEQ CAPSULE ER 40 MEQ PO (09:41)
[2023-08-07] MEDS: CARBIDOPA-LEVODOPA 25-100 TABLET 1 TAB PO ×3 (09:41→20:23)
[2023-08-07] MEDS: LOSARTAN POTASSIUM 50 MG TABLET PO ×2 (09:42→20:21)
[2023-08-07] MEDS: guaiFENesin 600 MG TAB.ER.12H PO ×4 (09:42→20:23)
[2023-08-07] MEDS: FLUOXETINE HCL 10 MG CAPSULE 30 MG PO (09:42)
--- NOTE | 2023-08-07 10:18 | PC.SOCIAL ---
Discharge planning: Spoke with [facility] and was informed that Shayla, nurse from [facility] is living, will come to the hospital today to evaluate pt for possible discharge back to their facility over the weekend. lawn service worker to follow up as needed.
--- NOTE | 2023-08-07 10:28 | PM.IMPN1 ---
Progress Note: A&P Assessment and plan (1) Hypoxic respiratory failure: Problem details: Acute on chronic from long standing /diastolic heart failure. 87% O2 sats on admission. Acute RUL pneumonia/early sepsis pH is normal. no CO2 retention. lactate only mildly elevated - repeat normalized Oxygen demand improving, clinically feeling better RT to assess for home oxygen needs prior to returning to [facility] Living Status: Acute (2) Right upper lobe pneumonia: Problem details: CT shows few patchy ground-glass opacities within the central and inferior right upper lobe Continue zosyn + azithromycin, transitioning to oral prior to discharge Mucinex b.i.d., aerobika Oxygen to titrate >90%, wean as able. RT for home oxygen assessment prior to discharge Strep pneumo and Legionella neg Leukocytosis resolved. BC x2 NGTD Status: Acute (3) Cellulitis: Problem details: Acute on chronic, recurrent, lower extremities Known BLE venous stasis with worsening erythema superiorly on L - now receding from outline Continue Zosyn, transitioning to oral prior to discharge Anthony wraps to bilateral lower extremities (does not tolerate compression stockings) Continue wound care - Wound Care consult to be completed 08/06 Status: Acute (4) Venous stasis ulcers of both lower extremities: Problem details: Severe Followed by Navdeep Peña MD. She does not wear compression stockings as not tolerated. No previous rest pain or claudication. She does use lymphedema pumps daily, double layer compression wraps and leg elevation. I do not see documentation that she underwent sclerotherapy in 2022. Status: Acute (5) Diastolic heart failure with preserved ejection fraction: Problem details: chronic. NYHA class 3. weight goal: 97 kg -some mild heart failure signs on imaging. Does not sound wet. BNP trended up. Will give additional IV dose Lasix (08/05) in addition to home dosing furosemide 60 mg daily, monitor. Weight -1kg. ECHO during previous admission demonstrates worsening degree of aortic stenosis, enlarging left atrium, severely increased pulmonary hypertension. These changes are new when compared to an echocardiogram in 2022. Final Impressions: 1. Normal LV size, moderately increased wall thickness, normal global systolic function with an estimated EF of 60 - 65%. 2. Right ventricular cavity size is mildly enlarged, global systolic RV function is normal. 3. The aortic valve is trileaflet and calcified, moderate stenosis and mild regurgitation. The aortic valve peak velocity is 2.9 m/s, the peak gradient is 34 mmHg, and the mean gradient is 19 mmHg. The aortic valve area is 0.95 cm?? with a dimensionless index of 0.29. The stroke volume index is 31.4 ml/m??. 4. The mitral valve is sclerotic, mild mitral regurgitation. 5. Mitral stenosis with mildly increased mean gradient of 3.9 mmHg at a heart rate of 60. 6. Mild-moderate tricuspid regurgitation. 7. Severely enlarged left atrium. 8. Dilated coronary sinus. 9. Severely increased estimated pulmonary pressures by tricuspid regurgitation velocity and right atrial pressure (51 mmHg plus RAP). [facility] Cardiology consult was completed 06/16/2023-euvolemic status, oxygen supplementation necessary to prevent recurrent hospitalizations and exacerbations of CHF. Status: Acute (6) Essential hypertension: Problem details: Metoprolol 25mg BID and Losartan 50mg continued -prn metoprolol IV hypertensive urgency Status: Acute (7) Atrial fibrillation: Problem details: Rate controlled with Metoprolol, Anticoagulated with warfarin Status: Acute (8) Warfarin anticoagulation: Problem details: Pharmacy to manage, daily INR, goal 2-3 - monitor in setting of oral antibiotics Status: Acute (9) Aortic stenosis: Problem details: -gradient increasing from 0431-8408. Status: Acute (10) Pulmonary hypertension: Problem details: per TTE 06/23 51mmHG+RAP CT shows mild bibasilar interlobular septal thickening likely representing superimposed mild pulmonary edema Status: Acute (11) Parkinson disease: Problem details: - mildly progressive Parkinson's disease, treated with Sinemet - follows with Dr. Scott of Neurology Status: Acute (12) Obstructive sleep apnea: Problem details: Moderately severe with apnea-hypopnea index of 55 Non compliant with CPAP. Likely causing some chronic hypoxia without dyspnea Status: Acute (13) Physical debility: Problem details: Continue with PT/OT Plan to resume home health cares/therapies Status: Acute (14) Depression: Problem details: prozac (bereavement related) Status: Acute (15) Lymphadenopathy: Problem details: Incidental finding. CT shows pretracheal lymphadenopathy and multiple prominent bihilar in left prevascular lymph nodes. Questionable reactive infectious/inflammatory process. Radiology recommending follow-up imaging after appropriate therapy to evaluate for interval change as underlying malignancy/metastatic disease cannot be entirely excluded Status: Acute Plan Discharge on oral antibiotic to cover for community-acquired pneumonia, recurrent lower extremity cellulitis RT to assess for home oxygen needs Follow-up wound consult recommendations from 08/06 Outpatient follow-up: Wound care clinic, vascular surgery, INR clinic, repeat imaging for lymphadenopathy Time Spent With Patient Total time spent: Total time spent caring for the patient today was 45 minutes. This includes time spent for the visit reviewing the chart, time spent during the visit, time spent after the visit and documentation and planning in coordination of care. Subjective Date Seen: 08/07/23 Interval history: Patient continues to improve, feeling better this morning. Denies headache or dizziness. Denies chest pain or tightness. Reports cough is improving. Denies shortness of breath on 2 L NC. Tolerating orals without nausea vomiting. Continues to work with therapies, feeling somewhat stronger. Plan will be to return to enhanced living at [facility]. Staff will be here today to evaluate for potential return over the weekend. Exam Narrative: Exam Narrative: PHYSICAL EXAM General: Pleasant, conversant, NAD HEENT: Normocephalic, atraumatic, sclera white, EOMI, oral mucosa moist Cardiovascular: RRR, S1S2. Pulmonary: CTA bilaterally without rhonchi, rales, expiratory wheezes. No dyspnea on 2L Neurological: Alert, answering questions appropriately, cranial nerves intact, no focal findings Extremities: Bilateral lower extremities chronic venous insufficiency/stasis changes, rubor, erythema receding from outline, bandage over left lower leg wound Skin: Warm, dry. Const: Vital Signs, click to edit/add: Vital Signs - 24 hr 08/06/23 11:00 08/06/23 15:00 08/06/23 15:00 Temperature 97.6 F 97.5 F L Pulse Rate Pulse Rate [Pulse Oximeter] 54 L 65 65 Respiratory Rate 18 18 18 Blood Pressure [Ri ght Arm] 108/52 L 155/72 H Pulse Oximetry 90 95 Oxygen Delivery Me thod Nasal Cannula Nasal Cannula Oxygen Flow Rate 2 2 08/06/23 15:00 08/06/23 18:27 08/06/23 19:00 Temperature Pulse Rate 71 71 Pulse Rate [Pulse Oximeter] Respiratory Rate Blood Pressure [Ri ght Arm] Pulse Oximetry 88 Oxygen Delivery Me thod Oxygen Flow Rate 08/06/23 19:00 08/06/23 22:57 08/06/23 22:57 Temperature 97.7 F 98 F Pulse Rate Pulse Rate [Pulse Oximeter] 79 76 76 Respiratory Rate 18 18 18 Blood Pressure [[facility] Arm] 154/93 H 157/87 H Pulse Oximetry 92 92 Oxygen Delivery Me thod Nasal Cannula Nasal Cannula Oxygen Flow Rate 2 2 08/06/23 23:00 08/07/23 01:50 08/07/23 07:00 Temperature 98.2 F 97.9 F Pulse Rate 69 Pulse Rate [Pulse Oximeter] 72 63 Respiratory Rate 18 18 Blood [facility]] 174/85 H 126/63 Pulse Oximetry 88 90 Oxygen Delivery Me thod Nasal Cannula Nasal Cannula Oxygen Flow Rate 2 2 08/07/23 07:00 Temperature Pulse Rate Pulse Rate [Pulse Oximeter] 63 Respiratory Rate 18 Blood Pressure [[facility] Arm] Pulse Oximetry Oxygen Delivery Me thod Oxygen Flow Rate Labs Labs: Laboratory Results - last 24 hr 08/06/23 08/06/23 08/07/23 05:57 11:12 06:02 WBC 8.05 RBC 3.38 L Hgb 10.6 L Hct 33.9 MCV 100 MCH 31 MCHC 31 L Plt Count 230 INR 1.93 H Sodium 140 Potassium 3.8 Chloride 107 Carbon Dioxide 27 Anion Gap 6 L BUN 22 Creatinine 0.8 Estimated Creat Clear 34.02 Estimated GFR 72 Glucose 83 Lactate 1.0 Calcium 8.0 L C-Reactive Protein 5.2 H Lab Acknowledgement Test Added
--- NOTE | 2023-08-07 11:45 | PM.WSCN ---
Date of Consult Patient: [facility] Patient Consult date: 08/07/23 Requesting Physician: Hospitalist Primary Care Provider: Sofia Guerrero MD Consult Narrative Reason for consult: Bilateral Venous Ulcers Narrative: Carmel Chang is a 87 year old female Review of Systems Status of ROS: Reports: 6 or more systems reviewed and unremarkable except as noted in History and below [facility] Medical History (Updated 08/07/23 @ 10:46 by Gabriela Colindres PA-C) Atrial fibrillation ?I48.91 - Unspecified atrial fibrillation (ICD-10) Cellulitis ?L03.90 - Cellulitis, unspecified (ICD-10) Obstructive sleep apnea ?G47.33 - Obstructive sleep apnea (adult) (pediatric) (ICD-10) Physical debility ?R53.81 - Other malaise (ICD-10) Essential hypertension ?I10 - Essential (primary) hypertension (ICD-10) Venous stasis ulcers of both lower extremities ?I83.019 - Varicose veins of right lower extremity with ulcer of unspecified site (ICD-10) ?I83.029 - Varicose veins of left lower extremity with ulcer of unspecified site (ICD-10) ?L97.919 - Non-pressure chronic ulcer of unspecified part of right lower leg with unspecified severity (ICD-10) ?L97.929 - Non-pressure chronic ulcer of unspecified part of left lower leg with unspecified severity (ICD-10) POLST (Physician Orders for Life-Sustaining Treatment) ?Z78.9 - Other specified health status (ICD-10) Aortic stenosis ?I35.0 - Nonrheumatic aortic (valve) stenosis (ICD-10) Warfarin anticoagulation ?Z79.01 - intermission coordinator (current) use of anticoagulants (ICD-10) Parkinson disease ?G20 - Parkinson's disease (ICD-10) Lymphedema ?I89.0 - Lymphedema, not elsewhere classified (ICD-10) Chronic pain ?G89.29 - Other chronic pain (ICD-10) Cellulitis of left lower leg ?L03.116 - Cellulitis of left lower limb (ICD-10) Morbid obesity ?E66.01 - Morbid (severe) obesity due to excess calories (ICD-10) Fracture of rib ?S22.39XA - Fracture of one rib, unspecified side, initial encounter for closed fracture (ICD-10) Physical deconditioning ?R53.81 - Other malaise (ICD-10) At risk for falls ?Z91.81 - History of falling (ICD-10) Unstable gait ?R26.81 - Unsteadiness on feet (ICD-10) Opioid dependence ?F11.20 - Opioid dependence, uncomplicated (ICD-10) Chronic atrial fibrillation ?I48.20 - Chronic atrial fibrillation, unspecified (ICD-10) Depression ?F32.A - Depression, unspecified (ICD-10) Generalized OA ?M15.9 - Polyosteoarthritis, unspecified (ICD-10) Durable power of civil rights attorney in chart Health care directive on file ?Z78.9 - Other specified health status (ICD-10) Closed right ankle fracture ?S82.891A - Other fracture of right lower leg, initial encounter for closed fracture (ICD-10) Osteoarthritis of right shoulder ?M19.011 - Primary osteoarthritis, right shoulder (ICD-10) Osteoarthritis of left shoulder ?M19.012 - Primary osteoarthritis, left shoulder (ICD-10) Right rotator cuff tear arthropathy ?M75.101 - Unspecified rotator cuff tear or rupture of right shoulder, not specified as traumatic (ICD-10) ?M12.811 - Other specific arthropathies, not elsewhere classified, right shoulder (ICD-10) Osteoarthritis of left knee ?M17.12 - Unilateral primary osteoarthritis, left knee (ICD-10) Ulcer of lower extremity ?L97.909 - Non-pressure chronic ulcer of unspecified part of unspecified lower leg with unspecified severity (ICD-10) Cellulitis of leg ?L03.119 - Cellulitis of unspecified part of limb (ICD-10) Surgical History H/O excision of mass (09/21/00) ?Z98.890 - Other specified postprocedural states (ICD-10) 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 Lives at [place], [place]. No children. Nephew, Michi Chang, is her POA ([phone]). Requests DNR/DNI resuscitation status. What is your current living situation?: I presently have a place to live Problems where you live: no known problems Problems where you live details: NA In the past 12 months, utilities in danger of being shut off: no In past 12 months, lack of transportation kept you from medical appts, meetings, work, or getting things needed for daily living: no In the past 12 mos, have been you worried that your food would run out before you had money to buy more?: never true In the past 12 mos, the food you bought just didn't last and you didn't have money to buy more?: never true Highest level of school completed/degree received: Associate degree: academic program Smoking Status: Former smoker What tobacco products do you use: cigarettes Smoking quit date/years: >15 years ago Do you use any of these nicotine containing products: None Second hand tobacco smoke exposure: No How often do you have a drink containing alcohol: 2-4 times a month Alcohol type: beer Alcohol type details: 1 beer every Thursday at happy hour How many standard drinks containing alcohol do you have on a typical day: 1 or 2 How often do you have six or more drinks on one occasion: Never AUDIT-C Alcohol total score: 2 Non-prescribed substance use: denies use Caffeine: Yes How often does anyone, including family, friends and others, physically hurt you: never How often does anyone, including family, friends and others, insult or talk down to you: never How often does anyone, including family, friends and others, threaten you with harm: never How often does anyone, including family, friends and others, scream or curse at you: never service: No Meds Home Medications and Allergies Home Medications ?Medication ?Instructions ?Recorded ?Confirmed ?Type carbidopa 25 mg-levodopa 100 mg 1 tab PO TID 08/07/22 08/05/23 History tablet gabapentin 100 mg capsule 100 mg PO TID 08/08/22 08/05/23 History fluoxetine 10 mg capsule 30 mg PO DAILY 05/19/23 08/06/23 History furosemide 20 mg tablet 60 mg PO DAILY 05/19/23 08/05/23 History warfarin 3 mg tablet 3 mg PO 5XW 05/19/23 08/06/23 History acetaminophen 325 mg tablet 975 mg PO TID 06/15/23 08/05/23 History aluminum-mag hydroxide-simethicone 30 ml PO QID PRN 06/15/23 08/06/23 History 200 mg-200 mg-20 mg/5 mL oral susp (Advanced Antacid-Antigas) bisacodyl 10 mg rectal suppository 10 mg ND DAILY PRN 06/15/23 08/06/23 History (Dulcolax (bisacodyl)) loperamide 2 mg tablet (Imodium 2 mg PO PRN PRN 06/15/23 08/05/23 History A-D) magnesium hydroxide 400 mg/5 mL 30 ml PO Q48H PRN 06/15/23 08/05/23 History oral suspension (Milk of Magnesia) oxycodone 5 mg tablet 2.5 mg PO Q4H PRN 06/15/23 08/06/23 History warfarin 4 mg tablet 4 mg PO TUTH 06/15/23 08/06/23 History guaifenesin 100 mg/5 mL oral 200 mg PO Q4H PRN cough 08/06/23 08/06/23 History liquid (MAXTussin) guaifenesin 600 mg tablet, 600 mg PO BID 08/06/23 08/06/23 History extended release 12 hr (Mucus Relief ER) Allergies Allergy/AdvReac Type Severity Reaction Status Date / Time hydrochlorothiazide Allergy Verified 08/05/23 17:52 Sulfa (Sulfonamide Allergy Rash Verified 08/05/23 17:52 Antibiotics) Exam Const: Vital Signs, click to edit/add: Vital Signs - 24 hr 08/06/23 15:00 08/06/23 15:00 08/06/23 15:00 Temperature 97.5 F L Pulse Rate 71 Pulse Rate [Pulse Oximeter] 65 65 Respiratory Rate 18 18 Blood Pressure [Ri ght Arm] 155/72 H Pulse Oximetry 95 Oxygen Delivery Me thod Nasal Cannula Oxygen Flow Rate 2 08/06/23 18:27 08/06/23 19:00 08/06/23 19:00 Temperature 97.7 F Pulse Rate 71 Pulse Rate [Pulse Oximeter] 79 Respiratory Rate 18 Blood Pressure [Ri ght Arm] 154/93 H Pulse Oximetry 88 92 Oxygen Delivery Me thod Nasal Cannula Oxygen Flow Rate 2 08/06/23 22:57 08/06/23 22:57 08/06/23 23:00 Temperature 98 F Pulse Rate 69 Pulse Rate [Pulse Oximeter] 76 76 Respiratory Rate 18 18 Blood Pressure [Ri ght Arm] 157/87 H Pulse Oximetry 92 Oxygen Delivery Me thod Nasal Cannula Oxygen Flow Rate 2 08/07/23 01:50 08/07/23 07:00 08/07/23 07:00 Temperature 98.2 F 97.9 F Pulse Rate Pulse Rate [Pulse Oximeter] 72 63 63 Respiratory Rate 18 18 18 Blood Pressure [Ri ght Arm] 174/85 H 126/63 Pulse Oximetry 88 90 Oxygen Delivery Me thod Nasal Cannula Nasal Cannula Oxygen Flow Rate 2 2 08/07/23 10:00 Temperature Pulse Rate 61 Pulse Rate [Pulse Oximeter] Respiratory Rate Blood Pressure [Ri ght Arm] Pulse Oximetry Oxygen Delivery Me thod Oxygen Flow Rate Common normals: no apparent distress General appearance: cooperative, comfortable and well kempt Orientation/consciousness: Yes awake, Yes oriented to person and Yes oriented to place Lymph: Lymphatic: lymphedema (Chronic bilateral lower extremities) Neuro: Sensorium/orientation: awake, oriented to person and oriented to place Psych: Appearance: well kempt Attitude: calm Skin: Wounds: wounds noted (Bilateral lower extremity venous wounds. ) bed shiny, with slough and edematous, drainage serosanguineous and without odor Labs Labs: Short CBC 08/07/23 Range/Units 06:02 WBC 8.05 (4.50-11.00) K/uL Hgb 10.6 L (12.0-16.0) gm/dL Hct 33.9 (33.0-51.0) % Plt Count 230 (140-440) K/uL BMP 08/07/23 06:02 Sodium 140 Potassium 3.8 Chloride 107 Carbon Dioxide 27 BUN 22 Creatinine 0.8 Glucose 83 Calcium 8.0 L Assessment and Plan Assessment and plan (1) Venous stasis ulcers of both lower extremities: Problem comment: Severe Followed by Navdeep Peña MD. She does not wear compression stockings as not tolerated. No previous rest pain or claudication. She does use lymphedema pumps daily, double layer compression wraps and leg elevation. I do not see documentation that she underwent sclerotherapy in 2022. Status: Acute Assessment and Plan: Patient continues to be followed in wound center. Has missed weekly appointments due to hospitalizations. Patient has had increased lymphedema past several weeks due to not always utilizing her lymphedema pumps. Wounds are chronic, though both wounds and lower extremities are stable today. Non-tender. Hemosiderin staining per her normal appearance. Long-standing venous insufficiency/venous dermatitis vs. cellutilis. No warmth. We will continue with simple dressing harvey orders to bilateral lower extremities: 1) cleanse with wound cleanser, pat dry 2) Apply acquacel ag to wound bed 3) Cover with mepilex 4) Change Thursday/Thursday/Thursday 5) Will resume Wound Center appointments upon discharge from Acute Care Total Time Spent Total Time Spent: 25 minutes spent with patient, record review and documentation.
--- NOTE | 2023-08-07 13:08 | PC.SOCIAL ---
Discharge plan: Received call from Shayla at [facility] stating pt will be returning with new needs for oxygen and new order medications and for that reason Shayla will need to evaluate their ability to take pt back over the weekend prior to hospital discharging pt back. When discharge date is determined, RN needs to call for a nurse to nurse and to discuss timing and ability to receive pt back with Shayla nurse at the [facility] at [phone] (this is Shayla's personal phone, do not give to pt or family). If unable to accept pt back over the weekend, Shayla states pt could definitely return on Thursday08/10/23. At discharge, MD to include orders to resume nursing home manager and PT with [facility] in discharge orders if needed. Pt has been receiving these services. MD order should be faxed to [facility] and a call should be made to let them know she is being discharged back.
[2023-08-07] MEDS: WARFARIN 3 MG TABLET PO (17:35)
--- NOTE | 2023-08-07 18:24 | PC.NURSE ---
Patient alert and oriented. VSS. On 2L of O2 and O2 saturations range between 88-91%. Able to ambulate with A1 and walker. imcu specialist here to see patient. Is incontinent with urine. Tolerates a regular diet.
[2023-08-07] MEDS: AZITHROMYCIN 250 MG TABLET PO (20:22)
[2023-08-07] MEDS: OXYCODONE 5 MG TABLET 2.5 MG PO (20:22)
--- NOTE | 2023-08-07 22:26 | PC.NURSE ---
End of shift [id number]: Alert and oriented x 4. Denies any pain or shortness of breath. SBA with walker for transfers and ambulation.
[2023-08-08] VITALS (15 sets, daily range): BP systolic 139–178; BP diastolic 59–87; PULSE 53–74; RESP 16–20; TEMP 36.4–36.8; O2SAT 86–96
[2023-08-08] MEDS: PIPERACILLIN/TAZOBACTAM 3.375 GM in 0.9 % SODIUM CHLORIDE Mini-bag 100 ML IVPB ×4 (01:40→19:40)
[2023-08-08] MEDS: SODIUM CHLORIDE 0.9 % (FLUSH) 10 ML SYRINGE 5 ML IVF ×6 (01:40→20:23)
--- NOTE | 2023-08-08 06:29 | PC.NURSE ---
End of shift note [id number]: Pt alert & oriented x 4. She has been mostly incontinent of bladder throughout the shift and does not put call light on when she is noted to be incontinent. Pt requests to sleep in recliner per home routine. She has been afebrile throughout the shift. IV to L AC patent and SL as pt remains on IV ABX. Dressings to bilateral lower extremities noted to be C/D/I upon inspection. Detail Sergeant changed Mepilex sacral dressing to left posterior/thigh buttock due to old dressing being soiled with urine. 0100 IVP dose of Metoprolol held per order due to apical pulse of 58. 0700 dose is also being held due to bradycardia of 53 noted. Pt has been refusing to have pull up checked most of the shift despite encouragement though did allow global technical writer to change at start of shift and after 0500. Pt transfers/ambulates with assist of 1 using rolling walker and gait belt. ?Oxygen worn at 2 LPM with O2 sats of 95% and 96% noted with vital signs checks.
[2023-08-08 06:55] LABS: Hematocrit 34.2 % (33.0-51.0); Hemoglobin* 10.7 gm/dL (12.0-16.0); Mean Corpuscular HGB Conc 31 gm/dL (32-36); Mean Corpuscular Hemoglobin 32 pg (26-34); Mean Corpuscular Volume 101 fL (80-100); Platelet Count* 238 K/uL (140-440); Red Blood Count 3.38 m/uL (4.00-5.20); Slide Review Reflex No; White Blood Count* 8.74 K/uL (4.50-11.00)
[2023-08-08 07:07] LABS: Chloride* 106 mmol/L (96-114); Sodium* 138 mmol/L (135-149)
[2023-08-08 07:08] LABS: INR 1.89 (0.91-1.10); Potassium* 3.9 mmol/L (3.6-5.1); Prothrombin Time 23.1 Seconds
[2023-08-08 07:10] LABS: Anion Gap 5 mEq/L (7-15); Carbon Dioxide* 27 mmol/L (20-32); Creatinine* 0.8 mg/dL (0.5-1.5); Est. Creatinine Clearance* 34.02; Estimated Glomerular Filt Rate 72 ml/min
[2023-08-08 07:11] LABS: Blood Urea Nitrogen* 19 mg/dL (7-30); Calcium* 8.1 mg/dL (8.4-10.6); Glucose* 92 mg/dL (60-115)
[2023-08-08] MEDS: CARBIDOPA-LEVODOPA 25-100 TABLET 1 TAB PO ×3 (09:20→21:04)
[2023-08-08] MEDS: GABAPENTIN 100 MG CAPSULE PO ×3 (09:20→21:03)
[2023-08-08] MEDS: POTASSIUM CHLORIDE 10 MEQ CAPSULE ER 40 MEQ PO (09:20)
[2023-08-08] MEDS: LOSARTAN POTASSIUM 50 MG TABLET PO ×2 (09:20→21:03)
[2023-08-08] MEDS: FLUOXETINE HCL 10 MG CAPSULE 30 MG PO (09:20)
[2023-08-08] MEDS: METOPROLOL TARTRATE 25 MG TABLET PO ×2 (09:20→21:04)
[2023-08-08] MEDS: FUROSEMIDE 20 MG TABLET 60 MG PO (09:20)
[2023-08-08 10:47] LABS: C.Difficile Negative (Negative); CDIFFEPI 027 PRESUMPTIVE NEGATIVE (Negative)
--- NOTE | 2023-08-08 11:44 | RESP.RT ---
Patient sitting up in chair, appears comfortable on Room Air, breathing regular/easy, SaO2 91-94%, BBS with fair air movment, diminished slightly in bases, IS an Aerobika done with patient.
[2023-08-08] MEDS: METOPROLOL TARTRATE 1 MG/ML inj 5 MG IVP ×2 (13:05→19:11)
[2023-08-08] MEDS: 0.9 % SODIUM CHLORIDE 250 ml IV (14:07)
[2023-08-08] MEDS: DIPHENOXYLATE-ATROP 2.5-0.025 TABLET 1 TAB PO (14:31)
--- NOTE | 2023-08-08 16:27 | PM.IMPN1 ---
Progress Note: A&P Assessment and plan (1) Hypoxic respiratory failure: Problem details: Acute on chronic from long standing /diastolic heart failure. 87% O2 sats on admission. Acute RUL pneumonia/early sepsis pH is normal. no CO2 retention. lactate only mildly elevated - repeat normalized Oxygen demand improving, clinically feeling better RT to assess for home oxygen needs prior to returning to [facility] Living - 08/07 this continues to improve. Status: Acute (2) Right upper lobe pneumonia: Problem details: CT shows few patchy ground-glass opacities within the central and inferior right upper lobe Continue zosyn + azithromycin (day 3), transitioning to oral prior to discharge Mucinex b.i.d., aerobika Oxygen to titrate >90%, wean as able. RT for home oxygen assessment prior to discharge Strep pneumo and Legionella neg Leukocytosis resolved. BC x2 NGTD Status: Acute (3) Cellulitis: Problem details: Acute on chronic, recurrent, lower extremities Known BLE venous stasis with worsening erythema superiorly on L - now receding from outline Continue Zosyn, transitioning to oral prior to discharge Anthony wraps to bilateral lower extremities (does not tolerate compression stockings) Continue wound care - Wound Care consult completed 08/06, appreciate their recommendations Status: Acute (4) Venous stasis ulcers of both lower extremities: Problem details: Severe Followed by Navdeep Peña MD. She does not wear compression stockings as not tolerated. No previous rest pain or claudication. She does use lymphedema pumps daily, double layer compression wraps and leg elevation. I do not see documentation that she underwent sclerotherapy in 2022. Status: Acute (5) Diastolic heart failure with preserved ejection fraction: Problem details: chronic. NYHA class 3. weight goal: 97 kg -some mild heart failure signs on imaging. Does not sound wet. BNP trended up. Will give additional IV dose Lasix (08/05) in addition to home dosing furosemide 60 mg daily, monitor. Weight -1kg. ECHO during previous admission demonstrates worsening degree of aortic stenosis, enlarging left atrium, severely increased pulmonary hypertension. These changes are new when compared to an echocardiogram in 2022. Final Impressions: 1. Normal LV size, moderately increased wall thickness, normal global systolic function with an estimated EF of 60 - 65%. 2. Right ventricular cavity size is mildly enlarged, global systolic RV function is normal. 3. The aortic valve is trileaflet and calcified, moderate stenosis and mild regurgitation. The aortic valve peak velocity is 2.9 m/s, the peak gradient is 34 mmHg, and the mean gradient is 19 mmHg. The aortic valve area is 0.95 cm?? with a dimensionless index of 0.29. The stroke volume index is 31.4 ml/m??. 4. The mitral valve is sclerotic, mild mitral regurgitation. 5. Mitral stenosis with mildly increased mean gradient of 3.9 mmHg at a heart rate of 60. 6. Mild-moderate tricuspid regurgitation. 7. Severely enlarged left atrium. 8. Dilated coronary sinus. 9. Severely increased estimated pulmonary pressures by tricuspid regurgitation velocity and right atrial pressure (51 mmHg plus RAP). [facility] Cardiology consult was completed 06/16/2023-euvolemic status, oxygen supplementation necessary to prevent recurrent hospitalizations and exacerbations of CHF. Status: Chronic (6) Essential hypertension: Problem details: Metoprolol 25mg BID and Losartan 50mg continued -prn metoprolol IV hypertensive urgency Status: Chronic (7) Atrial fibrillation: Problem details: - Rate controlled with Metoprolol, Anticoagulated with warfarin Status: Chronic (8) Warfarin anticoagulation: Problem details: Pharmacy to manage, daily INR, goal 2-3 - monitor in setting of oral antibiotics Status: Chronic (9) Aortic stenosis: Problem details: -gradient increasing from 2704-1086. Status: Chronic (10) Pulmonary hypertension: Problem details: per TTE 06/23 51mmHG+RAP CT shows mild bibasilar interlobular septal thickening likely representing superimposed mild pulmonary edema Status: Chronic (11) Parkinson disease: Problem details: - mildly progressive Parkinson's disease, treated with Sinemet - follows with Dr. Scott of Neurology Status: Chronic (12) Obstructive sleep apnea: Problem details: Moderately severe with apnea-hypopnea index of 55 Non compliant with CPAP. Likely causing some chronic hypoxia without dyspnea Status: Chronic (13) Physical debility: Problem details: Continue with PT/OT Plan to resume home health cares/therapies Status: Chronic (14) Depression: Problem details: prozac (bereavement related) Status: Chronic (15) Lymphadenopathy: Problem details: Incidental finding. CT shows pretracheal lymphadenopathy and multiple prominent bihilar in left prevascular lymph nodes. Questionable reactive infectious/inflammatory process. Radiology recommending follow-up imaging after appropriate therapy to evaluate for interval change as underlying malignancy/metastatic disease cannot be entirely excluded Status: Acute (16) Diarrhea: Problem details: Check C diff, start Lomotil if negative. Will hold off on discharge until tomorrow. Status: Acute Plan Discharge on oral antibiotic to cover for community-acquired pneumonia, recurrent lower extremity cellulitis RT to assess for home oxygen needs Follow-up wound consult recommendations from 08/06 Outpatient follow-up: Wound care clinic, vascular surgery, INR clinic, repeat imaging for lymphadenopathy Subjective Time Seen by Provider: 09:38 Date Seen: 08/08/23 Interval history: Basia legs feel much better, but she noted some diarrhea this morning and would like Lomotil for it. She notes that she occasionally has diarrhea if she is stressed out or anxious about something and does feel anxious about being in the hospital right now. She has been on Zosyn for lower extremity cellulitis and does have a history of C diff. She is agreeable to consider Lomotil until we check for C diff Exam Narrative: Exam Narrative: General: No acute distress. Awake, alert, oriented. No pallor. No jaundice. Oropharynx: Clear. Mucous membranes moist. Cardiovascular: Regular rate and rhythm. No murmurs, gallops, or rubs. Respiratory: Clear to auscultation bilaterally. No wheezes or crackles. Abdomen: Bowel sounds present. Soft, nondistended, nontender. Extremities: Bilateral lower extremity chronic lymphedema and venous stasis changes. Left lower extremity now has mild purplish erythema that has dramatically receded from the lines drawn previously; apparently some improvement of edema as well and that they are now some wrinkles and skin is not tight nor shiny today. There bandages over both lower extremities. Const: Vital Signs, click to edit/add: Vital Signs - 24 hr 08/07/23 18:00 08/07/23 19:00 08/07/23 23:00 Temperature 98.4 F Pulse Rate [Pulse Oximeter] 57 L 68 Respiratory Rate 20 18 Blood Pressure [Ri ght Arm] 174/85 H Pulse Oximetry 96 96 Oxygen Delivery Me thod Room Air Oxygen Flow Rate 08/07/23 23:28 08/08/23 01:21 08/08/23 02:54 Temperature 98.0 F 98.0 F Pulse Rate [Pulse Oximeter] 68 58 L 61 Respiratory Rate 18 16 Blood Pressure [Ri ght Arm] 178/89 H 151/78 H Pulse Oximetry 95 96 Oxygen Delivery Me thod Nasal Cannula Nasal Cannula Oxygen Flow Rate 2 2 08/08/23 06:32 08/08/23 09:32 08/08/23 09:32 Temperature 97.8 F Pulse Rate [Pulse Oximeter] 53 L 74 74 Respiratory Rate 16 16 Blood Pressure [Ri ght Arm] 139/69 Pulse Oximetry 92 Oxygen Delivery Me thod Room Air Oxygen Flow Rate 08/08/23 11:12 08/08/23 11:42 08/08/23 13:01 Temperature 97.5 F L Pulse Rate [Pulse Oximeter] 56 L 66 Respiratory Rate 20 20 Blood Pressure [Ri ght Arm] 153/59 H 157/80 H Pulse Oximetry 92 93 Oxygen Delivery Me thod Room Air Room Air Oxygen Flow Rate 08/08/23 15:24 Temperature 97.6 F Pulse Rate [Pulse Oximeter] 65 Respiratory Rate 16 Blood Pressure [Ri ght Arm] 178/87 H Pulse Oximetry 90 Oxygen Delivery Me thod Room Air Oxygen Flow Rate Labs Labs: Laboratory Results - last 24 hr 08/08/23 08/08/23 06:00 09:26 WBC 8.74 RBC 3.38 L Hgb 10.7 L Hct 34.2 MCV 101 H MCH 32 MCHC 31 L Plt Count 238 INR 1.89 H Sodium 138 Potassium 3.9 Chloride 106 Carbon Dioxide 27 Anion Gap 5 L BUN 19 Creatinine 0.8 Estimated Creat Clear 34.02 Estimated GFR 72 Glucose 92 Calcium 8.1 L Stl C. diff Tox B Gene Negative Stl C. diff [id number] PRESUMPTIVE NEGATIVE
[2023-08-08] MEDS: WARFARIN 2 MG TABLET 4 MG PO (17:00)
--- NOTE | 2023-08-08 18:08 | PC.NURSE ---
End of Shift: Patient pleasant and cooperative. Patient hypertensive but vitally stable, lungs clear, BS WNL, IV SL and intact. Patient currently on RA. Patient 1 assist/walker. Patient denies pain. Patient incontinent of urine, and had 2 BMs today. Patient tolerating regular diet. Left leg cellulitis receding from outline and is barely pink. Anthony wrapped applied to lower extremities.
[2023-08-08] MEDS: OXYCODONE 5 MG TABLET 2.5 MG PO (21:02)
[2023-08-08] MEDS: AZITHROMYCIN 250 MG TABLET PO (21:03)
[2023-08-09] VITALS (7 sets, daily range): BP systolic 144–190; BP diastolic 66–82; PULSE 54–101; RESP 12–16; TEMP 36.4–36.7; O2SAT 85–97
[2023-08-09] MEDS: METOPROLOL TARTRATE 1 MG/ML inj 5 MG IVP (00:39)
[2023-08-09] MEDS: PIPERACILLIN/TAZOBACTAM 3.375 GM in 0.9 % SODIUM CHLORIDE Mini-bag 100 ML IVPB ×2 (02:20→08:13)
[2023-08-09 05:52] LABS: Hematocrit 35.4 % (33.0-51.0); Hemoglobin* 10.9 gm/dL (12.0-16.0); Mean Corpuscular HGB Conc 31 gm/dL (32-36); Mean Corpuscular Hemoglobin 31 pg (26-34); Mean Corpuscular Volume 101 fL (80-100); Platelet Count* 245 K/uL (140-440); Red Blood Count 3.51 m/uL (4.00-5.20); White Blood Count* 7.64 K/uL (4.50-11.00)
[2023-08-09 05:56] LABS: Slide Review Reflex No
[2023-08-09 06:05] LABS: Chloride* 105 mmol/L (96-114); Potassium* 3.9 mmol/L (3.6-5.1); Sodium* 138 mmol/L (135-149)
[2023-08-09 06:08] LABS: Anion Gap 8 mEq/L (7-15); Blood Urea Nitrogen* 18 mg/dL (7-30); Calcium* 8.4 mg/dL (8.4-10.6); Carbon Dioxide* 25 mmol/L (20-32); Creatinine* 0.7 mg/dL (0.5-1.5); Est. Creatinine Clearance* 34.02; Estimated Glomerular Filt Rate 85 ml/min; Glucose* 84 mg/dL (60-115)
[2023-08-09 06:16] LABS: INR 2.04 (0.91-1.10); Prothrombin Time 24.5 Seconds
--- NOTE | 2023-08-09 06:20 | PC.NURSE ---
Expanse Downtime occurred from approximately [id number] on 08/09/23.
--- NOTE | 2023-08-09 06:38 | PC.NURSE ---
End of shift note [id number]: Pt remains alert & oriented x 4 and continues to request to sleep in recliner at night per home routine. Oxygen worn at 1.5 LPM as O2 sat dropped to 86% when on RA at HS when dozing. Oxygen turned down to 1 LPM when O2 sat noted to be 97% and pt is now on RA when awake for the day. IV to L AC remains patent and SL as pt continues IV ABX for cellulitis. Dressings to bilateral lower extremities and posterior left thigh/buttock remain C/D/I. Pt mostly incontinent of bladder throughout the shift. Pt has been afebrile throughout the shift. Pt continues to refuse toileting throughout the night and to have incontinent product checked despite staff encouragement and reapproaching. She was agreeable to toileting at HS and then again this morning upon rising.
[2023-08-09] MEDS: CARBIDOPA-LEVODOPA 25-100 TABLET 1 TAB PO ×2 (09:16→13:31)
[2023-08-09] MEDS: GABAPENTIN 100 MG CAPSULE PO ×2 (09:16→13:31)
[2023-08-09] MEDS: METOPROLOL TARTRATE 25 MG TABLET PO (09:16)
[2023-08-09] MEDS: POTASSIUM CHLORIDE 10 MEQ CAPSULE ER 40 MEQ PO (09:16)
[2023-08-09] MEDS: FLUOXETINE HCL 10 MG CAPSULE 30 MG PO (09:16)
[2023-08-09] MEDS: guaiFENesin 600 MG TAB.ER.12H PO (09:17)
[2023-08-09] MEDS: LOSARTAN POTASSIUM 50 MG TABLET PO (09:17)
[2023-08-09] MEDS: FUROSEMIDE 20 MG TABLET 60 MG PO (09:17)
--- NOTE | 2023-08-09 13:16 | P.DS_ITS ---
DS: Providers Provider Time Seen by Provider: 08:10 Date Seen: 08/09/23 Date of admission: 08/06/23 09:05 Primary care physician: Sofia Guerrero MD Admitting Clinician: Alicia Wong MD Consults: 08/05/23 18:27 Consult to Occupational Therapy [CONS] Routine Comment: Reason(s) for OT Consult:: Evaluate and Treat Any Restrictions?:: No Restrictions Consult to Physical Therapy [CONS] Routine Comment: Reason(s) for PT Consult:: Evaluate and Treat Any Restrictions?:: No Restrictions Consult to Respiratory Therapy [CONS] Routine Comment: Reason(s) for RT Consult:: Consult Consult to [employer] [CONS] Routine Comment: Reason for Consult:: Social Service Consult 08/05/23 19:08 Consult to Occupational Therapy [CONS] Routine Comment: Reason(s) for OT Consult:: Difficulty Managing ADLs Any Restrictions?:: Unknown Consult to Physical Therapy [CONS] Routine Comment: Reason(s) for PT Consult:: Inability to Mobilize Any Restrictions?:: No Restrictions 08/06/23 00:06 Consult to Wound Care [CONS] Routine Comment: Known wound clinic patient - make recommendations Consulting Provider: Alicia Wong Attending Physician on discharge: Opal Mcrae MD Date of Discharge: 08/09/23 DS: Diagnosis Discharge Diagnosis (1) Diarrhea: Status: Resolved Problem details: C diff negative, restarted Lomotil. (2) Atrial fibrillation: Status: Chronic Problem details: - Rate controlled with Metoprolol, Anticoagulated with warfarin (3) Lymphadenopathy: Status: Acute Problem details: Incidental finding. CT shows pretracheal lymphadenopathy and multiple prominent bihilar in left prevascular lymph nodes. Questionable reactive inf ectious/inflammatory process. Radiology recommending follow-up imaging after appropriate therapy to evaluate for interval change as underlying malignancy/metastatic disease cannot be entirely excluded (4) Hypoxic respiratory failure: Status: Acute Problem details: Acute on chronic from long standing /diastolic heart failure. 87% O2 sats on admission. Acute RUL pneumonia/early sepsis pH is normal. no CO2 retention. lactate only mildly elevated - repeat normalized Oxygen demand improving, clinically feeling better RT to assess for home oxygen needs prior to returning to [facility] - 08/07 this continues to improve. (5) Right upper lobe pneumonia: Status: Acute Problem details: CT shows few patchy ground-glass opacities within the central and inferior right upper lobe Continue zosyn + azithromycin (day 3), transitioning to oral prior to discharge Mucinex b.i.d., aerobika Oxygen to titrate >90%, wean as able. RT for home oxygen assessment prior to discharge Strep pneumo and Legionella neg Leukocytosis resolved. BC x2 NGTD (6) Diastolic heart failure with preserved ejection fraction: Status: Chronic Problem details: chronic. NYHA class 3. weight goal: 97 kg -some mild heart failure signs on imaging. Does not sound wet. BNP trended up. Will give additional IV dose Lasix (08/05) in addition to home dosing furosemide 60 mg daily, monitor. Weight -1kg. ECHO during previous admission demonstrates worsening degree of aortic stenosis, enlarging left atrium, severely increased pulmonary hypertension. These changes are new when compared to an echocardiogram in 2022. Final Impressions: 1. Normal LV size, moderately increased wall thickness, normal global systolic function with an estimated EF of 60 - 65%. 2. Right ventricular cavity size is mildly enlarged, global systolic RV function is normal. 3. The aortic valve is trileaflet and calcified, moderate stenosis and mild regurgitation. The aortic valve peak velocity is 2.9 m/s, the peak gradient is 34 mmHg, and the mean gradient is 19 mmHg. The aortic valve area is 0.95 cm?? with a dimensionless index of 0.29. The stroke volume index is 31.4 ml/m??. 4. The mitral valve is sclerotic, mild mitral regurgitation. 5. Mitral stenosis with mildly increased mean gradient of 3.9 mmHg at a heart rate of 60. 6. Mild-moderate tricuspid regurgitation. 7. Severely enlarged left atrium. 8. Dilated coronary sinus. 9. Severely increased estimated pulmonary pressures by tricuspid regurgitation velocity and right atrial pressure (51 mmHg plus RAP). [facility] consult was completed 06/16/2023-euvolemic status, oxygen supplementation necessary to prevent recurrent hospitalizations and exacerbations of CHF. (7) Venous stasis ulcers of both lower extremities: Status: Acute Problem details: Severe Followed by Navdeep Peña MD. She does not wear compression stockings as not tolerated. No previous rest pain or claudication. She does use lymphedema pumps daily, double layer compression wraps and leg elevation. I do not see documentation that she underwent sclerotherapy in 2022. (8) Pulmonary hypertension: Status: Chronic Problem details: per TTE 06/23 51mmHG+RAP CT shows mild bibasilar interlobular septal thickening likely representing superimposed mild pulmonary edema (9) Aortic stenosis: Status: Chronic Problem details: -gradient increasing from 7077-0184. (10) Essential hypertension: Status: Chronic Problem details: Metoprolol 25mg BID and Losartan 50mg continued -prn metoprolol IV hypertensive urgency (11) Obstructive sleep apnea: Status: Chronic Problem details: Moderately severe with apnea-hypopnea index of 55 Non compliant with CPAP. Likely causing some chronic hypoxia without dyspnea (12) Parkinson disease: Status: Chronic Problem details: - mildly progressive Parkinson's disease, treated with Sinemet - follows with Dr. Scott of Neurology (13) Physical debility: Status: Chronic Problem details: Continue with PT/OT Plan to resume home health cares/therapies DS: Summary Hospital Course Hospital Course: 3. Pretracheal lymphadenopathy and multiple prominent bihilar and left prevascular lymph nodes. These may be reactive to the infectious/inflammatory process within the right upper lobe; however, recommend follow-up imaging after appropriate therapy to evaluate for interval change since an underlying malignancy/metastatic disease can not be entirely excluded. Time Spent with Patient Time attestation: Total time spent providing and/or coordinating discharge services: Exam Narrative: Exam Narrative: General: No acute distress. Awake, alert, oriented. No pallor. No jaundice. Oropharynx: Clear. Mucous membranes moist. Cardiovascular: Regular rate and rhythm. No murmurs, gallops, or rubs. Respiratory: Clear to auscultation bilaterally. No wheezes or crackles. Abdomen: Bowel sounds present. Soft, nondistended, nontender. Extremities: Bilateral lower extremity chronic lymphedema and venous stasis changes. Left lower extremity erythema improving, even more from yesterday even. Massive chronic lymphedema. There bandages over both lower extremities. Const: Vital Signs, click to edit/add: Vital Signs - 24 hr 08/08/23 15:24 08/08/23 15:24 08/08/23 18:07 Temperature 97.6 F Pulse Rate [Pulse Oximeter] 65 65 Respiratory Rate 16 16 Blood Pressure [Ri ght Arm] 178/87 H Pulse Oximetry 90 90 Oxygen Delivery Me thod Room Air Oxygen Flow Rate 08/08/23 19:05 08/08/23 19:45 08/08/23 21:20 Temperature 98.3 F Pulse Rate [Pulse Oximeter] 72 Respiratory Rate 20 20 Blood Pressure [Ri ght Arm] 158/75 H Pulse Oximetry 91 86 L Oxygen Delivery Me thod Room Air Room Air Oxygen Flow Rate 08/08/23 21:32 08/08/23 22:38 08/08/23 23:00 Temperature 97.9 F Pulse Rate [Pulse Oximeter] 70 67 Respiratory Rate 18 18 Blood Pressure [Ri ght Arm] 156/69 H Pulse Oximetry 93 95 Oxygen Delivery Me thod Nasal Cannula Nasal Cannula Oxygen Flow Rate 1.5 1.5 08/09/23 00:35 08/09/23 03:00 08/09/23 06:32 Temperature 98.1 F Pulse Rate [Pulse Oximeter] 67 58 L 55 L Respiratory Rate 16 Blood Pressure [Ri ght Arm] 158/75 H 144/66 H Pulse Oximetry 97 Oxygen Delivery Me thod Nasal Cannula Oxygen Flow Rate 1.5 08/09/23 08:15 08/09/23 08:15 08/09/23 10:58 Temperature 97.6 F 97.9 F Pulse Rate [Pulse Oximeter] 101 H 101 H 73 Respiratory Rate 12 12 16 Blood Pressure [Ri ght Arm] 167/76 H 190/82 H Pulse Oximetry 90 93 Oxygen Delivery Me thod Room Air Room Air Oxygen Flow Rate 08/09/23 11:40 Temperature Pulse Rate [Pulse Oximeter] 54 L Respiratory Rate Blood Pressure [Ri ght Arm] 174/74 H Pulse Oximetry Oxygen Delivery Me thod Oxygen Flow Rate DS: Data Data Completed and Pending Completed studies during hospitalization: Ordering Physician: Jose Miguel Pascual M.D. Date of Service: 08/05/23 Procedure(s): CT angio chest PE protocol Accession Number(s): [id number] cc: Jose Miguel Pascual M.D.; Sofia Guerrero M.D.~ For Patients: As a result of the Cures Act, medical imaging exams and procedure reports are released immediately into your electronic medical record. You may view this report before your referring provider. If you have questions, please contact your health care provider. INDICATION: Fever, cough. TECHNIQUE: CT chest PE was acquired with 100 cc Omnipaque 350 IV contrast. COMPARISON: None. FINDINGS: Heart and vasculature: Contrast opacification of the pulmonary arterial tree is adequate. No sign of pulmonary embolism. Cardiomegaly. Coronary artery and thoracic aorta atherosclerotic calcification. Thoracic aorta and pulmonary artery are normal in caliber. No pericardial effusion. Lungs and pleura: Few patchy ground-glass opacities within the central and inferior right upper lobe. Mild interlobular septal thickening within the lung bases. Tiny right pleural effusion with passive atelectasis. No pneumothorax. Lymph nodes/mediastinum: Several enlarged pretracheal and multiple prominent bihilar and left prevascular lymph nodes. Chest wall: No masses. Upper abdomen: 5 mm nonobstructing left nephrolith. Bones: Accentuated thoracic kyphosis. Otherwise, unremarkable for age. IMPRESSION: 1. No pulmonary embolism. 2. Few patchy ground-glass opacities within the central and inferior right upper lobe, most compatible with infectious or inflammatory process. 3. Pretracheal lymphadenopathy and multiple prominent bihilar and left prevascular lymph nodes. These may be reactive to the infectious/inflammatory process within the right upper lobe; however, recommend follow-up imaging after appropriate therapy to evaluate for interval change since an underlying malignancy/metastatic disease can not be entirely excluded. 4. Mild bibasilar interlobular septal thickening could represent superimposed mild pulmonary edema. Please note that all CT scans at this facility use dose modulation, iterative reconstruction, and/or weight-based dosing when appropriate to reduce radiation dose to as low as reasonably achievable. Dictated by Nelson Benoit MD @ 08/05/2023 7:45:57 PM (Electronically Signed) Ordering Physician: Jose Miguel Pascual M.D. Date of Service: 08/05/23 Procedure(s): XR chest 1V portable Accession Number(s): [id number] cc: Jose Miguel Pascual M.D.; Sofia Guerrero M.D.~ For Patients: As a result of the 21st Century Cures Act, medical imaging exams and procedure reports are released immediately into your electronic medical record. You may view this report before your referring provider. If you have questions, please contact your health care provider. INDICATION: Cough and hypoxia. COMPARISON: 06/14/2023 chest radiograph. FINDINGS/IMPRESSION: Portable AP chest radiograph. Unchanged cardiac prominence likely reflecting mild cardiomegaly. Mild pulmonary vascular congestion and diffuse interstitial prominence, stable or slightly greater than on the prior exam. No focal lung consolidation identified. No pleural effusions. Bilateral shoulder degenerative changes. No acute osseous findings. Dictated by Zoran Fields MD @ 08/05/2023 6:23:43 PM Dictated by: Zoran Fields MD @ 08/05/2023 18:24:52 (Electronically Signed) Labs on day of discharge: Labs from last 24 hours 08/09/23 05:35 WBC 7.64 RBC 3.51 L Hgb 10.9 L Hct 35.4 MCV 101 H MCH 31 MCHC 31 L Plt Count 245 INR 2.04 H Sodium 138 Potassium 3.9 Chloride 105 Carbon Dioxide 25 Anion Gap 8 BUN 18 Creatinine 0.7 Estimated Creat Clear 34.02 Estimated GFR 85 Glucose 84 Calcium 8.4 Preliminary micro results at discharge 08/05/23 16:23 Blood Culture - Preliminary Blood NO GROWTH AFTER 72 HOURS 08/05/23 16:05 Blood Culture - Preliminary Blood NO GROWTH AFTER 72 HOURS Discharge Plan Discharge Disposition: Xfer Other Discharge Location: [facility] Date of Admission: 08/06/23 09:05 Attending Provider on Discharge: Opal Mcrae Consulting Providers: Alicia Wong Primary Care Provider: Sofia Guerrero Discharge Medications: New amoxicillin-pot clavulanate 875-125 mg tablet 1 tab PO BID 6 Days Qty: 12 0RF Continued carbidopa-levodopa 25-100 mg tablet 1 tab PO TID gabapentin 100 mg capsule 100 mg PO TID metoprolol tartrate 25 mg Tablet 25 mg PO BID Qty: 60 0RF acetaminophen 325 mg tablet 975 mg PO TID bisacodyl [Dulcolax (bisacodyl)] 10 mg suppository 10 mg IA DAILY PRN alum-mag hydroxide-simeth [Advanced Antacid-Antigas] 200-200-20 mg/5 mL suspension 30 ml PO QID PRN loperamide [Imodium A-D] 2 mg tablet 2 mg PO PRN PRN Rx Instructions: up to 6 tabs per day magnesium hydroxide [Milk of Magnesia] 400 mg/5 mL suspension 30 ml PO Q48H PRN warfarin 4 mg tablet 4 mg PO TUTH Rx Instructions: 4 MG , oxycodone 5 mg Tablet 2.5 mg PO Q4H PRN Rx Instructions: 2.5 MG PO HS potassium chloride 10 mEq Capsule, Extended Release 40 meq PO DAILY Qty: 120 0RF warfarin 3 mg tablet 3 mg PO 5XW Rx Instructions: 3 MG MON,WE,FR,SA,MARTINEZ fluoxetine 10 mg capsule 30 mg PO DAILY furosemide 20 mg tablet 60 mg PO DAILY losartan 50 mg Tablet 50 mg PO BID Qty: 60 0RF guaifenesin [MAXTussin] 100 mg/5 mL liquid 200 mg PO Q4H PRN (Reason: cough) guaifenesin [Mucus Relief ER] 600 mg tablet extended release 12hr 600 mg PO BID Discharge Orders: Discharge Order (Routine); Ordered 08/09/23 Ordered By: Opal Mcrae Additional Instructions: Resume home health nurse licensed practical and PT with [facility]. Wound dressing changes M/W/F: 1) cleanse with wound cleanser, pat dry 2) Apply acquacel ag to wound bed 3) Cover with mepilex Resume Wound Center appointments. Activity Level: No Restrictions and Use Walker Discharge Diet: Heart Healthy (2 gm sodium, low fat) Follow Up Appointments: Sofia Guerrero MD [Primary Care Provider] - Forms: MyHealth Info Instructions
[2023-08-09] MEDS: DIPHENOXYLATE-ATROP 2.5-0.025 TABLET 1 TAB PO (13:31)
[2023-08-09] MEDS: AMOXICILLIN/CLAVULANATE 875 mg/125 mg TABLET PO (13:42)
--- NOTE | 2023-08-09 13:58 | PC.NURSE ---
Discharge: Patient pleasant and cooperative. Patient hypertensive at times but stable, lungs clear, BS WNL, IV removed, catheter intact. Patient denies pain, 1 person assist/walker. Patient incontinent of urine but urinating well, had 1 loose BM. Patient tolerating regular diet, lower extremities with precious bandages applied. Mepilex applied to left lower buttock/thigh. Report given to Shayla at [facility]. Patient left the floor by EMS to home at 1352. Belongings sheet and discharge from signed. Dose of oral antibiotic given before discharge.
--- NOTE | 2023-08-09 14:00 | PC.NURSE ---
Discharge paperwork faxed to [facility].
== END 2023-08-09 13:52 | disposition home health service (06) | DRG 602 ==
LOC: ED 17:13 → MEDSURG 18:09
PROVIDERS: Family Medicine; Admitting Provider Family Medicine; Emergency Provider Family Medicine; PCP Family Medicine; Visit Provider Physician Assistant
DX: L03.116 Cellulitis of left lower limb (principal); J18.9 Pneumonia, unspecified organism; J96.21 Acute and chronic respiratory failure with hypoxia; I50.32 Chronic diastolic (congestive) heart failure; I48.20 Chronic atrial fibrillation, unspecified; L97.829 Non-pressure chronic ulcer of other part of left lower leg with unspecified severity; L97.819 Non-pressure chronic ulcer of other part of right lower leg with unspecified severity; I11.0 Hypertensive heart disease with heart failure; R19.7 Diarrhea, unspecified; I35.0 Nonrheumatic aortic (valve) stenosis; I27.20 Pulmonary hypertension, unspecified; Z79.01 Long term (current) use of anticoagulants; G47.33 Obstructive sleep apnea (adult) (pediatric); G20.A1 Parkinson's disease without dyskinesia, without mention of fluctuations; I89.0 Lymphedema, not elsewhere classified; E66.01 Morbid (severe) obesity due to excess calories; I87.2 Venous insufficiency (chronic) (peripheral); R59.0 Localized enlarged lymph nodes; F32.A Depression, unspecified; Z68.38 Body mass index [BMI] 38.0-38.9, adult
CPT/HCPCS: 36415; 71045; 71275; 80048; 80053; 80076; 81001; 82803; 83605; 83735; 83880; 84145; 85025; 85027; 85379; 85610; 86140; 87040; 87449; 87493; 87631; 87899; 93005; 94664; 94761; 97110; 97116; 97162; 97166; 97530; 97535; 99284; G0378; A9270; J1940; J2543; J7030; J7050; Q9967

== ENCOUNTER 2023-08-09 13:56 | Outpatient (CLI) | payer MEDICARE, BC, SELFPAY | END 2023-08-09 13:57 | disposition home or self-care (01) | LOC: AMB 08-18 21:14 | PROVIDERS: PCP Family Medicine; Visit Provider Family Medicine | DX: I50.30 Unspecified diastolic (congestive) heart failure (principal); J18.9 Pneumonia, unspecified organism; L03.119 Cellulitis of unspecified part of limb | CPT/HCPCS: A0425; A0428 ==

== ENCOUNTER 2023-08-14 11:22 | Outpatient (CLI) | payer MEDICARE, BC, SELFPAY | END 2023-08-14 11:23 | disposition home or self-care (01) | LOC: WOUND 11:23 | PROVIDERS: PCP Family Medicine; Visit Provider Nurse Practitioner Family | DX: I87.312 Chronic venous hypertension (idiopathic) with ulcer of left lower extremity (principal); I73.9 Peripheral vascular disease, unspecified; L97.822 Non-pressure chronic ulcer of other part of left lower leg with fat layer exposed | CPT/HCPCS: 97597 ==

== ENCOUNTER 2023-08-17 14:06 | Inpatient (IN) | payer MEDICARE, BC, SELFPAY ==
[2023-08-17] VITALS (26 sets, daily range): BP systolic 130–184; BP diastolic 60–123; PULSE 83–112; RESP 20–22; TEMP 36.7–37.2; O2SAT 85–100; BMI 44.9; BMI 42.0
--- NOTE | 2023-08-17 15:28 | ED.GENADULT ---
HPI - General Adult General Time Seen by Provider: 15:28 Date Seen: 08/17/23 Chief complaint: Fever Stated complaint: Shortness of breath/fever Time Seen by Provider: 08/17/23 15:18 Source: patient, EMS and RN notes reviewed Mode of arrival: EMS Limitations: no limitations History of Present Illness HPI narrative: This 87-year-old female is brought in by [facility] for reported temperature of 101.2? today. Patient was hospitalized here from August 05 to with pneumonia and left lower extremity cellulitis. She did get discharged with Augmentin, believe she completed it. She did have some diarrhea during the hospitalization which was tested for C difficile and was negative, patient states she has not had any ongoing diarrhea. She has no pain anywhere. She is still coughing some. She notes that the left leg stocking at feels tight, notes that the leg is still red and warm. Today she had sudden onset of chills and then her temperature was taken. She did not take her medicines this morning. Does have underlying Parkinson's and has tremors with that. She did have 1 emesis in the ambulance, they did give her 4 mg IV Zofran. EMS also noted her to be 85-88% on room air, did give her supplemental oxygen. She you did require some oxygen while hospitalized here recently, with treatment of the pneumonia, hypoxia resolved and patient was discharged to home without any oxygen. She does have chronic atrial fibrillation and is anticoagulated with Coumadin. She also has known venous stasis with history of ulcers of both lower extremities, diastolic heart failure with preserved ejection fraction, pulmonary hypertension, aortic stenosis, underlying hypertension, obstructive sleep apnea. I believe she is from [facility], assisted living. Related Data Home Medications ?Medication ?Instructions ?Recorded ?Confirmed carbidopa 25 mg-levodopa 100 mg 1 tab PO TID 08/07/22 08/05/23 tablet gabapentin 100 mg capsule 100 mg PO TID 08/08/22 08/05/23 fluoxetine 10 mg capsule 30 mg PO DAILY 05/19/23 08/06/23 furosemide 20 mg tablet 60 mg PO DAILY 05/19/23 08/05/23 warfarin 3 mg tablet 3 mg PO 5XW 05/19/23 08/06/23 acetaminophen 325 mg tablet 975 mg PO TID 06/15/23 08/05/23 aluminum-mag hydroxide-simethicone 30 ml PO QID PRN 06/15/23 08/06/23 200 mg-200 mg-20 mg/5 mL oral susp (Advanced Antacid-Antigas) bisacodyl 10 mg rectal suppository 10 mg AR DAILY PRN 06/15/23 08/06/23 (Dulcolax (bisacodyl)) loperamide 2 mg tablet (Imodium 2 mg PO PRN PRN 06/15/23 08/05/23 A-D) magnesium hydroxide 400 mg/5 mL 30 ml PO Q48H PRN 06/15/23 08/05/23 oral suspension (Milk of Magnesia) oxycodone 5 mg tablet 2.5 mg PO Q4H PRN 06/15/23 08/06/23 warfarin 4 mg tablet 4 mg PO TUTH 06/15/23 08/06/23 guaifenesin 100 mg/5 mL oral 200 mg PO Q4H PRN cough 08/06/23 08/06/23 liquid (MAXTussin) guaifenesin 600 mg tablet, 600 mg PO BID 08/06/23 08/06/23 extended release 12 hr (Mucus Relief ER) Previous Rx's ?Medication ?Instructions ?Recorded metoprolol tartrate 25 mg tablet 25 mg PO BID #60 tabs 11/11/22 losartan 50 mg tablet 50 mg PO BID #60 tabs 05/21/23 potassium chloride 10 mEq 40 meq (4 x 10 mEq) PO DAILY #120 06/17/23 capsule,extended release caps amoxicillin 875 mg-potassium 1 tab PO BID 6 days #12 tabs 08/09/23 clavulanate 125 mg tablet Allergies Allergy/AdvReac Type Severity Reaction Status Date / Time hydrochlorothiazide Allergy Verified 08/05/23 17:52 Sulfa (Sulfonamide Allergy Rash Verified 08/05/23 17:52 Antibiotics) Review of Systems Status of ROS: Reports: 6 or more systems reviewed and unremarkable except as noted in History and below [facility] Medical History Diastolic heart failure with preserved ejection fraction ?I50.30 - Unspecified diastolic (congestive) heart failure (ICD-10) Pulmonary hypertension ?I27.20 - Pulmonary hypertension, unspecified (ICD-10) Atrial fibrillation ?I48.91 - Unspecified atrial fibrillation (ICD-10) Cellulitis ?L03.90 - Cellulitis, unspecified (ICD-10) Obstructive sleep apnea ?G47.33 - Obstructive sleep apnea (adult) (pediatric) (ICD-10) Physical debility ?R53.81 - Other malaise (ICD-10) Essential hypertension ?I10 - Essential (primary) hypertension (ICD-10) Venous stasis ulcers of both lower extremities ?I83.019 - Varicose veins of right lower extremity with ulcer of unspecified site (ICD-10) ?I83.029 - Varicose veins of left lower extremity with ulcer of unspecified site (ICD-10) ?L97.919 - Non-pressure chronic ulcer of unspecified part of right lower leg with unspecified severity (ICD-10) ?L97.929 - Non-pressure chronic ulcer of unspecified part of left lower leg with unspecified severity (ICD-10) POLST (Physician Orders for Life-Sustaining Treatment) ?Z78.9 - Other specified health status (ICD-10) Aortic stenosis ?I35.0 - Nonrheumatic aortic (valve) stenosis (ICD-10) Warfarin anticoagulation ?Z79.01 - correction (current) use of anticoagulants (ICD-10) Parkinson disease ?G20 - Parkinson's disease (ICD-10) Lymphedema ?I89.0 - Lymphedema, not elsewhere classified (ICD-10) Chronic pain ?G89.29 - Other chronic pain (ICD-10) Cellulitis of left lower leg ?L03.116 - Cellulitis of left lower limb (ICD-10) Morbid obesity ?E66.01 - Morbid (severe) obesity due to excess calories (ICD-10) Fracture of rib ?S22.39XA - Fracture of one rib, unspecified side, initial encounter for closed fracture (ICD-10) Physical deconditioning ?R53.81 - Other malaise (ICD-10) At risk for falls ?Z91.81 - History of falling (ICD-10) Unstable gait ?R26.81 - Unsteadiness on feet (ICD-10) Opioid dependence ?F11.20 - Opioid dependence, uncomplicated (ICD-10) Chronic atrial fibrillation ?I48.20 - Chronic atrial fibrillation, unspecified (ICD-10) Depression ?F32.A - Depression, unspecified (ICD-10) Generalized OA ?M15.9 - Polyosteoarthritis, unspecified (ICD-10) Durable power of trade mark attorney in chart Health care directive on file ?Z78.9 - Other specified health status (ICD-10) Closed right ankle fracture ?S82.891A - Other fracture of right lower leg, initial encounter for closed fracture (ICD-10) Osteoarthritis of right shoulder ?M19.011 - Primary osteoarthritis, right shoulder (ICD-10) Osteoarthritis of left shoulder ?M19.012 - Primary osteoarthritis, left shoulder (ICD-10) Right rotator cuff tear arthropathy ?M75.101 - Unspecified rotator cuff tear or rupture of right shoulder, not specified as traumatic (ICD-10) ?M12.811 - Other specific arthropathies, not elsewhere classified, right shoulder (ICD-10) Osteoarthritis of left knee ?M17.12 - Unilateral primary osteoarthritis, left knee (ICD-10) Ulcer of lower extremity ?L97.909 - Non-pressure chronic ulcer of unspecified part of unspecified lower leg with unspecified severity (ICD-10) Cellulitis of leg ?L03.119 - Cellulitis of unspecified part of limb (ICD-10) Surgical History H/O excision of mass (09/21/00) ?Z98.890 - Other specified postprocedural states (ICD-10) 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 Lives at [place], [place]. No children. Nephew, Michi Chavez, is her POA ([phone]). Requests DNR/DNI resuscitation status. What is your current living situation?: I presently have a place to live Problems where you live: no known problems Problems where you live details: NA In the past 12 months, utilities in danger of being shut off: no In past 12 months, lack of transportation kept you from medical appts, meetings, work, or getting things needed for daily living: no In the past 12 mos, have been you worried that your food would run out before you had money to buy more?: never true In the past 12 mos, the food you bought just didn't last and you didn't have money to buy more?: never true Highest level of school completed/degree received: Associate degree: academic program Smoking Status: Former smoker What tobacco products do you use: cigarettes Smoking quit date/years: >15 years ago Do you use any of these nicotine containing products: None Second hand tobacco smoke exposure: No How often do you have a drink containing alcohol: 2-4 times a month Alcohol type: beer Alcohol type details: 1 beer every Thursday at happy hour How many standard drinks containing alcohol do you have on a typical day: 1 or 2 How often do you have six or more drinks on one occasion: Never AUDIT-C Alcohol total score: 2 Non-prescribed substance use: denies use Caffeine: Yes How often does anyone, including family, friends and others, physically hurt you: never How often does anyone, including family, friends and others, insult or talk down to you: never How often does anyone, including family, friends and others, threaten you with harm: never How often does anyone, including family, friends and others, scream or curse at you: never service: No Exam Const: Vital Signs, click to edit/add: Vital Signs - 24 hr 08/17/23 14:19 08/17/23 14:22 08/17/23 14:28 Temperature 98.5 F Pulse Rate Pulse Rate [Pulse Oximeter] 96 Respiratory Rate 22 Blood Pressure Blood Pressure [Le ft Upper Arm] 184/123 H Pulse Oximetry 91 88 92 Oxygen Delivery Me thod Nasal Cannula Room Air Nasal Cannula Oxygen Flow Rate 5 2 08/17/23 14:30 08/17/23 14:31 08/17/23 14:45 Temperature Pulse Rate 111 H 99 95 Pulse Rate [Pulse Oximeter] Respiratory Rate 20 Blood Pressure 178/103 H Blood Pressure [Le ft Upper Arm] Pulse Oximetry 85 L 91 94 Oxygen Delivery Me thod OxyMask Oxygen Flow Rate 6 08/17/23 15:00 08/17/23 15:02 06/17/24 15:15 Temperature Pulse Rate 94 92 83 Pulse Rate [Pulse Oximeter] Respiratory Rate Blood Pressure 151/88 H Blood Pressure [Le ft Upper Arm] Pulse Oximetry 97 95 99 Oxygen Delivery Me thod Oxygen Flow Rate 08/17/23 15:22 08/17/23 15:30 08/17/23 15:32 Temperature Pulse Rate 90 98 Pulse Rate [Pulse Oximeter] Respiratory Rate Blood Pressure 135/73 Blood Pressure [Le ft Upper Arm] Pulse Oximetry 98 99 Oxygen Delivery Me thod OxyMask Oxygen Flow Rate 6 08/17/23 15:40 08/17/23 15:40 08/17/23 15:45 Temperature Pulse Rate Pulse Rate [Pulse Oximeter] Respiratory Rate Blood Pressure Blood Pressure [Le ft Upper Arm] Pulse Oximetry 98 87 L Oxygen Delivery Me thod Nasal Cannula Oxygen Flow Rate 08/17/23 16:01 08/17/23 16:03 08/17/23 16:15 Temperature Pulse Rate 87 95 94 Pulse Rate [Pulse Oximeter] Respiratory Rate Blood Pressure 130/69 Blood Pressure [Le ft Upper Arm] Pulse Oximetry 100 97 87 L Oxygen Delivery Me thod Oxygen Flow Rate 08/17/23 16:43 08/17/23 16:45 08/17/23 17:00 Temperature Pulse Rate 112 H 90 86 Pulse Rate [Pulse Oximeter] Respiratory Rate Blood Pressure Blood Pressure [Le ft Upper Arm] Pulse Oximetry 90 94 86 L Oxygen Delivery Me thod Oxygen Flow Rate 08/17/23 17:07 08/17/23 17:08 08/17/23 17:12 Temperature Pulse Rate 89 Pulse Rate [Pulse Oximeter] Respiratory Rate 22 Blood Pressure 135/92 H Blood Pressure [Le ft Upper Arm] Pulse Oximetry 97 Oxygen Delivery Me thod OxyMask Oxygen Flow Rate 4 08/17/23 17:15 08/17/23 17:30 08/17/23 17:32 Temperature 98.0 F Pulse Rate 85 83 Pulse Rate [Pulse Oximeter] Respiratory Rate Blood Pressure 143/69 H Blood Pressure [Le ft Upper Arm] Pulse Oximetry 90 89 91 Oxygen Delivery Me thod Oxygen Flow Rate 08/17/23 17:33 Temperature Pulse Rate 100 Pulse Rate [Pulse Oximeter] Respiratory Rate Blood Pressure Blood Pressure [Le ft Upper Arm] Pulse Oximetry 90 Oxygen Delivery Me thod Oxygen Flow Rate 87-year-old female is alert, interactive, no apparent distress. She is conversive, able to answer my questions. She is wearing oxygen, satting in the low 90s. Sclera clear, conjugate gaze. Patient is obese, neck is thick, difficult to assess jugular venous distension. Feel no neck masses. Lungs do seem clear, no tachypnea, no wheezing or crackles. Heart sounds are distant, here no significant murmur, she does sound regular. Abdomen is obese, confound says clinical examination but she certainly does not have any tenderness, no rebound or guarding. She has chronic changes along the distal right lower extremity, skin is not warm, these changes are consistent with venous stasis changes. Her left lower extremity has the pigmentary changes distally but then there is overlying significant erythema and warmth which does extend up above the knee medially. The skin is quite warm. See no vesicles, do not find any area of fluctuance. She has bandages covering of left lateral area of this left lower extremity and 1 medially. There was a compression sleeve on the distal leg. I do not see any source of draining on this left lower extremity. Documenting provider has reviewed patient's vital signs: yes Course Course ED Course: Need to look for source of infection, consider incompletely resolved in worsening pneumonia, obviously her left lower extremity with cellulitis is high on the differential but need to rule out other etiologies. Will certainly get urinalysis as well. Obtain urine cultures and full complement of labs. Will look at her lungs with CT noncontrast at this point. We will check an INR to make sure that she is therapeutic. Have reviewed her advanced directives, she is DNR DNI. Consultations Consultation #1: Hospitalist Dr. Luna is down here to see patient. We did go in and clinically review her physical exam together. I did assist in rolling, he did inspect her backside, no evidence of focal infectious source there. Her left lower extremity does indeed seem to be the source of infection with significant erythema, warmth and redness. She has recurrent left lower extremity cellulitis. We discussed antibiotics, will initiate vancomycin and cefepime. Vancomycin will be initiated given the recurrent nature of this cellulitis, was recently on Zosyn and then transition to oral Augmentin. Read at this time states she is not really feeling that bad. Time: 18:19 Vital Signs Vital signs: Initial Vital Signs Pulse Oximetry 91 08/17/23 14:19 Oxygen Delivery Method Nasal Cannula 08/17/23 14:19 Oxygen Flow Rate 5 08/17/23 14:19 Vital Signs Pulse Oximetry 91 08/17/23 14:19 Oxygen Delivery Method Nasal Cannula 08/17/23 14:19 Oxygen Flow Rate 5 08/17/23 14:19 Temperature 98.0 F 08/17/23 17:15 Pulse Rate 100 08/17/23 17:33 Respiratory Rate 22 08/17/23 17:08 Blood Pressure 143/69 H 08/17/23 17:32 Pulse Oximetry 90 08/17/23 17:33 Oxygen Delivery Method OxyMask 08/17/23 17:12 Oxygen Flow Rate 4 08/17/23 17:12 Medical Decision Making Lab Data Lab results reviewed: Yes I reviewed the patient's lab results Labs: Lab Results 08/17/23 08/17/23 Range/Units 16:12 16:55 WBC 23.08 H (4.50-11.00) K/uL RBC 4.12 (4.00-5.20) m/uL Hgb 12.9 (12.0-16.0) gm/dL Hct 41.3 (33.0-51.0) % MCV 100 (80-100) fL MCH 31 (26-34) pg MCHC 31 L (32-36) gm/dL RDW Coeff of Mandeep 15.0 (11.5-15.5) % Plt Count 263 (140-440) K/uL Neut % (Auto) 94.1 H (42.0-72.0) % Lymph % (Auto) 1.0 L (20-44) % [place] % (Auto) 4.1 (0.0-11.0) % Eos % (Auto) 0.2 (0.0-7.0) % Baso % (Auto) 0.2 (0.0-3.0) % Neut # (Auto) 21.70 H (1.7-7.0) K/uL Lymph # (Auto) 0.20 L (0.90-2.90) K/uL [place] # (Auto) 0.90 (0.00-0.90) K/UL Eos # (Auto) 0.00 (0.00-0.50) K/uL Baso # (Auto) 0.00 (0.00-0.30) K/uL Abs Immat Gran (auto) 0.10 (0.00-0.30) K/uL Imm/Tot Granulo (auto) 0.4 % INR 1.93 H (0.91-1.10) VBG pH 7.340 (7.32-7.43) VBG pCO2 49 (40-50) mmHG VBG pO2 < 30.1 (25-47) mmHG VBG HCO3 26 (21-28) mmol/L Sodium 138 (135-149) mmol/L Potassium 4.2 (3.6-5.1) mmol/L Chloride 103 (96-114) mmol/L Carbon Dioxide 26 (20-32) mmol/L Anion Gap 9 (7-15) mEq/L BUN 23 (7-30) mg/dL Creatinine 0.8 (0.5-1.5) mg/dL Estimated Creat Clear 29.54 Estimated GFR 72 ml/min Glucose 108 (60-115) mg/dL Lactate 2.1 H (0.5-1.9) mmol/L Calcium 8.9 (8.4-10.6) mg/dL Total Bilirubin 0.9 (0.1-1.5) mg/dL AST 16 (12-35) U/L ALT 9 (4-35) U/L Alkaline Phosphatase 115 (40-150) U/L C-Reactive Protein 2.0 H (0.5-1.0) mg/dL Total Protein 7.6 (6.0-8.3) g/dL Albumin 4.4 (3.3-5.0) g/dL Urine Color Yellow (Yellow) Urine Appearance Clear (Clear) Urine pH 5.0 (5.0-8.5) Ur Specific [place] 1.010 (1.000-1.030) Urine Protein Negative (Negative) Urine Glucose (UA) Negative (Negative) Urine Ketones Negative (Negative) Urine Blood Negative (Negative) Urine Nitrite Negative (Negative) Urine Bilirubin Negative (Negative) Urine Urobilinogen 0.2 (0.2-1.0) Ur Leukocyte Esterase Negative (Negative) Urine RBC 0-2 (0-2) Urine WBC 0-2 (0-5) Ur Squamous Epith Cells Few (None-Few) Other Sediment Few A (None) Urine Bacteria None (None) SARS-CoV-2 (PCR) Negative SARS-CoV-2 (Negative) Influenza Type A (PCR) Negative PCR FLU A (Negative) Influenza Type B (PCR) Negative PCR FLU B (Negative) RSV (PCR) Negative PCR RSV (Negative) Imaging Data CT scan - chest: Attestation: I have reviewed the pertinent imaging results. Radiologist's impression: Patient: DIVYA CHAVEZ Facility:?[facility] Patient ID:?[id number] Site Patient ID:?[id number]. Site :?[id number] Study:?CT-Chest W/O-08/17/2023 4:43:05 PM Ordering Physician:Marvin Hope Final Report: INDICATION: Fever. TECHNIQUE: CT chest without contrast. COMPARISON: CT PE chest 08/05/2023. FINDINGS: Lungs and pleura: Decreased patchy ground-glass opacities in the right upper lobe, with a few residual ground-glass opacities. Interval resolution of interstitial edema. No new acute infiltrates. Lingular and bibasilar atelectasis. Trace right pleural effusion, unchanged. No pneumothorax. Minimal centrilobular emphysema. Heart and vasculature: Stable cardiomegaly with biatrial enlargement. Thoracic aorta and pulmonary artery are normal in caliber. Coronary artery calcifications. Lymph nodes/mediastinum: Decreased size of mediastinal and hilar lymph nodes, likely reactive. Stable thyroid gland. Chest wall: No masses. Upper abdomen: No acute findings. Bones: Degenerative changes. Exaggerated thoracic kyphosis. Flowing syndesmophytes, nonspecific but may be seen in the setting of ankylosing spondylitis. Acute nondisplaced fracture of the T10-T11 anterior bridging osteophyte with fracture plane extending into the T11 vertebral body. IMPRESSION: 1. Near-complete resolution of right upper lobe infectious/inflammatory process, with a few residual ground-glass opacities. 2. No new acute infiltrates. 3. Acute nondisplaced fracture of the T10-T11 anterior bridging osteophyte with fracture plane extending into the T11 vertebral body. Please note that all CT scans at this facility use dose modulation, iterative reconstruction, and/or weight-based dosing when appropriate to reduce radiation dose to as low as reasonably achievable. Dictated by Miguel Lino MD @ 08/17/2023 5:25:06 PM (Electronic Signature) ECG Data Attestation: I personally reviewed and interpreted this ECG as follows: (Atrial fibrillation, 97 beats per minute. No evidence of any active ischemia. QT corrected 406 milliseconds.) Prior ECG tracings: available for review Discharge Plan Discharge Clinical Impression: Cellulitis of left leg Patient Disposition: Admitted As Observation
--- NOTE | 2023-08-17 15:40 | CRLHL7_ITS ---
For Patients: As a result of the Century Cures Act, medical imaging exams and procedure reports are released immediately into your electronic medical record. You may view this report before your referring provider. If you have questions, please contact your health care provider. INDICATION: Fever. TECHNIQUE: CT chest without contrast. COMPARISON: CT PE chest 08/05/2023. FINDINGS: Lungs and pleura: Decreased patchy ground-glass opacities in the right upper lobe, with a few residual ground-glass opacities. Interval resolution of interstitial edema. No new acute infiltrates. Lingular and bibasilar atelectasis. Trace right pleural effusion, unchanged. No pneumothorax. Minimal centrilobular emphysema. Heart and vasculature: Stable cardiomegaly with biatrial enlargement. Thoracic aorta and pulmonary artery are normal in caliber. Coronary artery calcifications. Lymph nodes/mediastinum: Decreased size of mediastinal and hilar lymph nodes, likely reactive. Stable thyroid gland. Chest wall: No masses. Upper abdomen: No acute findings. Bones: Degenerative changes. Exaggerated thoracic kyphosis. Flowing syndesmophytes, nonspecific but may be seen in the setting of ankylosing spondylitis. Acute nondisplaced fracture of the T10-T11 anterior bridging osteophyte with fracture plane extending into the T11 vertebral body. IMPRESSION: 1. Near-complete resolution of right upper lobe infectious/inflammatory process, with a few residual ground-glass opacities. 2. No new acute infiltrates. 3. Acute nondisplaced fracture of the T10-T11 anterior bridging osteophyte with fracture plane extending into the T11 vertebral body. Please note that all CT scans at this facility use dose modulation, iterative reconstruction, and/or weight-based dosing when appropriate to reduce radiation dose to as low as reasonably achievable. Dictated by Miguel Lino MD @ 08/17/2023 5:25:06 PM (Electronically Signed)
[2023-08-17 16:28] LABS: HCO3 VBG 26 mmol/L (21-28); Lactate* 2.1 mmol/L (0.5-1.9); PCO2 VBG 49 mmHG (40-50); PO2 VBG < 30.1 mmHG (25-47)
[2023-08-17 16:31] LABS: Basophils Percent Auto 0.2 % (0.0-3.0); Eosinophils Percent Auto 0.2 % (0.0-7.0); Hematocrit 41.3 % (33.0-51.0); Hemoglobin* 12.9 gm/dL (12.0-16.0); Immature Granulocytes Pct Auto 0.4 %; Mean Corpuscular HGB Conc 31 gm/dL (32-36); Mean Corpuscular Hemoglobin 31 pg (26-34); Mean Corpuscular Volume 100 fL (80-100); Monocytes Percent Auto 4.1 % (0.0-11.0); Neutrophils Percent Auto 94.1 % (42.0-72.0); Platelet Count* 263 K/uL (140-440); Red Blood Count 4.12 m/uL (4.00-5.20); Slide Review Reflex No; White Blood Count* 23.08 K/uL (4.50-11.00)
[2023-08-17 16:47] LABS: INR 1.93 (0.91-1.10); Prothrombin Time 23.4 Seconds
[2023-08-17 16:51] LABS: Albumin* 4.4 g/dL (3.3-5.0); Chloride* 103 mmol/L (96-114); Sodium* 138 mmol/L (135-149)
[2023-08-17 16:52] LABS: Potassium* 4.2 mmol/L (3.6-5.1)
[2023-08-17 16:53] LABS: Creatinine* 0.8 mg/dL (0.5-1.5); Est. Creatinine Clearance* 29.54; Estimated Glomerular Filt Rate 72 ml/min
[2023-08-17 16:54] LABS: Alkaline Phosphatase* 115 U/L (40-150); Anion Gap 9 mEq/L (7-15); Aspartate Amino Transferase* 16 U/L (12-35); Bilirubin Total* 0.9 mg/dL (0.1-1.5); Carbon Dioxide* 26 mmol/L (20-32)
[2023-08-17 16:55] LABS: Alanine Aminotransferase* 9 U/L (4-35); Blood Urea Nitrogen* 23 mg/dL (7-30); Calcium* 8.9 mg/dL (8.4-10.6); Glucose* 108 mg/dL (60-115); Total Protein* 7.6 g/dL (6.0-8.3)
[2023-08-17 17:05] LABS: Appearance Urine Clear (Clear); Bilirubin Urine Negative (Negative); Blood Urine Negative (Negative); Color Urine Yellow (Yellow); Glucose Urine Negative (Negative); Ketones Urine Negative (Negative); Leukocyte Esterase Urine Negative (Negative); Nitrite Urine Negative (Negative); Protein Urine Negative (Negative); Urobilinogen Urine 0.2 (0.2-1.0)
[2023-08-17 17:13] LABS: PCR FLU A Negative PCR FLU A (Negative); PCR FLU B Negative PCR FLU B (Negative); PCR RSV Negative PCR RSV (Negative); SARS PCR* Negative SARS-CoV-2 (Negative)
[2023-08-17 17:23] LABS: RBC Urine 0-2 (0-2); Squamous Epithelial Cell Urine Few (None-Few); WBC Urine 0-2 (0-5)
[2023-08-17 17:24] LABS: Other Sediment Urine Few
[2023-08-17] MEDS: CEFEPIME HCL 2 GM in 0.9 % SODIUM CHLORIDE Mini-bag 100 ML IVPB (19:01)
[2023-08-17] MEDS: OXYCODONE 5 MG TABLET 2.5 MG PO (20:05)
--- NOTE | 2023-08-17 20:15 | P.IMHP_ITS ---
Hospitalist- H&P: HPI History of Present Illness Date Seen: 08/17/23 Chief complaint: Shortness of breath/fever Narrative: Carmel Chang is a 87 year old woman hospitalized from 08/05/2023 through 08/09/2023 and treated for pneumonia and left leg cellulitis. Condition improved. Was discharged from hospital and completed a full course of oral Augmentin. Has known bilateral lower extremity lymphedema, chronic peripheral venous insufficiency with chronic bilateral lower extremity venous stasis ulcers, which conditions are being treated with compression wraps, wound care, venous stasis pumps, leg elevation. Despite having prescription for oxygen use at night she has not been using this. States she has not had any unusual dyspnea other than her baseline dyspnea with exertion. Cough she previously had is in great measure improved. Was generally feeling well until today she suddenly felt chilled and had a temperature measured as high as 101.2? F. was then brought to the emergency department for further assessment. In the emergency department she was found to have a red, warm, swollen left leg encompassing the medial posterior aspect of the knee area into the proximal calf. No other source of infection identified including lung in urine. Viral nasal swab negative for COVID-19, influenza, RSV. Patient thus readmitted to the hospital for recurrent left leg cellulitis, which had previously been fully treated and resolved but is now recurrent. Review of Systems Status of ROS: Reports: 10 or more systems reviewed and unremarkable except as noted in History and below [facility] Medical History (Updated 08/17/23 @ 20:48 by Mello Luna MD) Chronic hypoxic respiratory failure, on home oxygen therapy ?J96.11 - Chronic respiratory failure with hypoxia (ICD-10) ?Z99.81 - Dependence on supplemental oxygen (ICD-10) Tricuspid valve regurgitation ?I07.1 - Rheumatic tricuspid insufficiency (ICD-10) Diastolic heart failure with preserved ejection fraction ?I50.30 - Unspecified diastolic (congestive) heart failure (ICD-10) Pulmonary hypertension ?I27.20 - Pulmonary hypertension, unspecified (ICD-10) Atrial fibrillation ?I48.91 - Unspecified atrial fibrillation (ICD-10) Cellulitis ?L03.90 - Cellulitis, unspecified (ICD-10) Obstructive sleep apnea ?G47.33 - Obstructive sleep apnea (adult) (pediatric) (ICD-10) Physical debility ?R53.81 - Other malaise (ICD-10) Essential hypertension ?I10 - Essential (primary) hypertension (ICD-10) Venous stasis ulcers of both lower extremities ?I83.019 - Varicose veins of right lower extremity with ulcer of unspecified site (ICD-10) ?I83.029 - Varicose veins of left lower extremity with ulcer of unspecified site (ICD-10) ?L97.919 - Non-pressure chronic ulcer of unspecified part of right lower leg with unspecified severity (ICD-10) ?L97.929 - Non-pressure chronic ulcer of unspecified part of left lower leg with unspecified severity (ICD-10) POLST (Physician Orders for Life-Sustaining Treatment) ?Z78.9 - Other specified health status (ICD-10) Aortic stenosis ?I35.0 - Nonrheumatic aortic (valve) stenosis (ICD-10) 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 (ICD-10) Parkinson disease ?G20 - Parkinson's disease (ICD-10) Lymphedema ?I89.0 - Lymphedema, not elsewhere classified (ICD-10) Chronic pain ?G89.29 - Other chronic pain (ICD-10) Cellulitis of left lower leg ?L03.116 - Cellulitis of left lower limb (ICD-10) Morbid obesity ?E66.01 - Morbid (severe) obesity due to excess calories (ICD-10) Fracture of rib ?S22.39XA - Fracture of one rib, unspecified side, initial encounter for closed fracture (ICD-10) Physical deconditioning ?R53.81 - Other malaise (ICD-10) At risk for falls ?Z91.81 - History of falling (ICD-10) Unstable gait ?R26.81 - Unsteadiness on feet (ICD-10) Opioid dependence ?F11.20 - Opioid dependence, uncomplicated (ICD-10) Chronic atrial fibrillation ?I48.20 - Chronic atrial fibrillation, unspecified (ICD-10) Depression ?F32.A - Depression, unspecified (ICD-10) Generalized OA ?M15.9 - Polyosteoarthritis, unspecified (ICD-10) Durable power of trademark attorney in chart Health care directive on file ?Z78.9 - Other specified health status (ICD-10) Closed right ankle fracture ?S82.891A - Other fracture of right lower leg, initial encounter for closed fracture (ICD-10) Osteoarthritis of right shoulder ?M19.011 - Primary osteoarthritis, right shoulder (ICD-10) Osteoarthritis of left shoulder ?M19.012 - Primary osteoarthritis, left shoulder (ICD-10) Right rotator cuff tear arthropathy ?M75.101 - Unspecified rotator cuff tear or rupture of right shoulder, not specified as traumatic (ICD-10) ?M12.811 - Other specific arthropathies, not elsewhere classified, right shoulder (ICD-10) Osteoarthritis of left knee ?M17.12 - Unilateral primary osteoarthritis, left knee (ICD-10) Ulcer of lower extremity ?L97.909 - Non-pressure chronic ulcer of unspecified part of unspecified lower leg with unspecified severity (ICD-10) Cellulitis of leg ?L03.119 - Cellulitis of unspecified part of limb (ICD-10) Surgical History H/O excision of mass (09/21/00) ?Z98.890 - Other specified postprocedural states (ICD-10) 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 Lives at [place], [place]. No children. Nephew, Michi Chang, is her POA ([phone]). Requests DNR/DNI resuscitation status. What is your current living situation?: I presently have a place to live Problems where you live: no known problems Problems where you live details: NA In the past 12 months, utilities in danger of being shut off: no In past 12 months, lack of transportation kept you from medical appts, meetings, work, or getting things needed for daily living: no In the past 12 mos, have been you worried that your food would run out before you had money to buy more?: never true In the past 12 mos, the food you bought just didn't last and you didn't have money to buy more?: never true Highest level of school completed/degree received: Associate degree: academic program Smoking Status: Former smoker What tobacco products do you use: cigarettes Smoking quit date/years: >15 years ago Do you use any of these nicotine containing products: None Second hand tobacco smoke exposure: No How often do you have a drink containing alcohol: 2-4 times a month Alcohol type: beer Alcohol type details: 1 beer every Thursday at happy hour How many standard drinks containing alcohol do you have on a typical day: 1 or 2 How often do you have six or more drinks on one occasion: Never AUDIT-C Alcohol total score: 2 Non-prescribed substance use: denies use Caffeine: Yes How often does anyone, including family, friends and others, physically hurt you : never How often does anyone, including family, friends and others, insult or talk down to you: never How often does anyone, including family, friends and others, threaten you with harm: never How often does anyone, including family, friends and others, scream or curse at you: never service: No Meds Home Medications and Allergies Home Medications ?Medication ?Instructions ?Recorded ?Confirmed ?Type carbidopa 25 mg-levodopa 100 mg 1 tab PO TID 08/07/22 08/05/23 History tablet gabapentin 100 mg capsule 100 mg PO TID 08/08/22 08/05/23 History fluoxetine 10 mg capsule 30 mg PO DAILY 05/19/23 08/06/23 History furosemide 20 mg tablet 60 mg PO DAILY 05/19/23 08/05/23 History warfarin 3 mg tablet 3 mg PO 5XW 05/19/23 08/06/23 History acetaminophen 325 mg tablet 975 mg PO TID 06/15/23 08/05/23 History aluminum-mag hydroxide-simethicone 30 ml PO QID PRN 06/15/23 08/06/23 History 200 mg-200 mg-20 mg/5 mL oral susp (Advanced Antacid-Antigas) bisacodyl 10 mg rectal suppository 10 mg [place] DAILY PRN 06/15/23 08/06/23 History (Dulcolax (bisacodyl)) loperamide 2 mg tablet (Imodium 2 mg PO PRN PRN 06/15/23 08/05/23 History A-D) magnesium hydroxide 400 mg/5 mL 30 ml PO Q48H PRN 06/15/23 08/05/23 History oral suspension (Milk of Magnesia) oxycodone 5 mg tablet 2.5 mg PO Q4H PRN 06/15/23 08/06/23 History warfarin 4 mg tablet 4 mg PO TUTH 06/15/23 08/06/23 History guaifenesin 100 mg/5 mL oral 200 mg PO Q4H PRN cough 08/06/23 08/06/23 History liquid (MAXTussin) guaifenesin 600 mg tablet, 600 mg PO BID 08/06/23 08/06/23 History extended release 12 hr (Mucus Relief ER) Allergies Allergy/AdvReac Type Severity Reaction Status Date / Time hydrochlorothiazide Allergy Verified 08/05/23 17:52 Sulfa (Sulfonamide Allergy Rash Verified 08/05/23 17:52 Antibiotics) Exam Narrative: Exam Narrative: I examined patient 1st in the emergency department and secondly on the hospital medical floor. Appears comfortable and in no acute distress. Vision and hearing are adequate. Alert and oriented to self, place, time, situation. Friendly, articulate, cooperative. Able to express discomfort when we attempt to move her. Tympanic membranes normal. Midline nasal septum. Moist buccal mucosa. Dentition in fair repair. No icterus. Conjunctiva noninjected. Pupils equally round and reactive to light and accommodation. Conjugate gaze. Extraocular muscles are intact. Neck is full. Midline trachea. Neck is supple. Lungs fairly clear to auscultation. No obvious wheezing, rhonchi, rales. Heart tones with regular rhythm, normal S1-S2. Distant tones. Abdomen obese with active bowel sounds, soft, nontender. No rebound or guarding. Examine the skin on her arms and legs front and back of her torso, her bottom, hands and feet. Does have wounds on her legs which are dressed as of today. Area of erythema, swelling, warmth of left leg on the medial posterior aspect around the knee and proximal portion of the calf. Consistent with cellulitis. Has changes of chronic venous stasis of bilateral lower extremities. No focal motor neurologic deficits. Const: Vital Signs, click to edit/add: Vital Signs - 24 hr 08/17/23 14:19 08/17/23 14:22 08/17/23 14:28 Temperature 98.5 F Pulse Rate Pulse Rate [Pulse Oximeter] 96 Respiratory Rate 22 Blood Pressure Blood Pressure [Le ft Upper Arm] 184/123 H Pulse Oximetry 91 88 92 Oxygen Delivery Me thod Nasal Cannula Room Air Nasal Cannula Oxygen Flow Rate 5 2 08/17/23 14:30 08/17/23 14:31 08/17/23 14:45 Temperature Pulse Rate 111 H 99 95 Pulse Rate [Pulse Oximeter] Respiratory Rate 20 Blood Pressure 178/103 H Blood Pressure [Le ft Upper Arm] Pulse Oximetry 85 L 91 94 Oxygen Delivery Me thod OxyMask Oxygen Flow Rate 6 08/17/23 15:00 08/17/23 15:02 08/17/23 15:15 Temperature Pulse Rate 94 92 83 Pulse Rate [Pulse Oximeter] Respiratory Rate Blood Pressure 151/88 H Blood Pressure [Le ft Upper Arm] Pulse Oximetry 97 95 99 Oxygen Delivery Me thod Oxygen Flow Rate 08/17/23 15:22 08/17/23 15:30 08/17/23 15:32 Temperature Pulse Rate 90 98 Pulse Rate [Pulse Oximeter] Respiratory Rate Blood Pressure 135/73 Blood Pressure [Le ft Upper Arm] Pulse Oximetry 98 99 Oxygen Delivery Me thod OxyMask Oxygen Flow Rate 6 08/17/23 15:40 08/17/23 15:40 08/17/23 15:45 Temperature Pulse Rate Pulse Rate [Pulse Oximeter] Respiratory Rate Blood Pressure Blood Pressure [Le ft Upper Arm] Pulse Oximetry 98 87 L Oxygen Delivery Me thod Nasal Cannula Oxygen Flow Rate 08/17/23 16:01 08/17/23 16:03 08/17/23 16:15 Temperature Pulse Rate 87 95 94 Pulse Rate [Pulse Oximeter] Respiratory Rate Blood Pressure 130/69 Blood Pressure [Le ft Upper Arm] Pulse Oximetry 100 97 87 L Oxygen Delivery Me thod Oxygen Flow Rate 08/17/23 16:43 08/17/23 16:45 08/17/23 17:00 Temperature Pulse Rate 112 H 90 86 Pulse Rate [Pulse Oximeter] Respiratory Rate Blood Pressure Blood Pressure [Le ft Upper Arm] Pulse Oximetry 90 94 86 L Oxygen Delivery Me thod Oxygen Flow Rate 08/17/23 17:07 08/17/23 17:08 08/17/23 17:12 Temperature Pulse Rate 89 Pulse Rate [Pulse Oximeter] Respiratory Rate 22 Blood Pressure 135/92 H Blood Pressure [Le ft Upper Arm] Pulse Oximetry 97 Oxygen Delivery Me thod OxyMask Oxygen Flow Rate 4 08/17/23 17:15 08/17/23 17:30 08/17/23 17:32 Temperature 98.0 F Pulse Rate 85 83 Pulse Rate [Pulse Oximeter] Respiratory Rate Blood Pressure 143/69 H Blood Pressure [Le ft Upper Arm] Pulse Oximetry 90 89 91 Oxygen Delivery Me thod Oxygen Flow Rate 08/17/23 17:33 Temperature Pulse Rate 100 Pulse Rate [Pulse Oximeter] Respiratory Rate Blood Pressure Blood Pressure [Le ft Upper Arm] Pulse Oximetry 90 Oxygen Delivery Me thod Oxygen Flow Rate Hospitalist - H&P: Result Labs Labs: Short CBC 08/17/23 Range/Units 16:12 WBC 23.08 H (4.50-11.00) K/uL Hgb 12.9 (12.0-16.0) gm/dL Hct 41.3 (33.0-51.0) % Plt Count 263 (140-440) K/uL BMP 08/17/23 16:12 Sodium 138 Potassium 4.2 Chloride 103 Carbon Dioxide 26 BUN 23 Creatinine 0.8 Glucose 108 Calcium 8.9 Liver Function 08/17/23 Range/Units 16:12 Total Bilirubin 0.9 (0.1-1.5) mg/dL AST 16 (12-35) U/L ALT 9 (4-35) U/L Alkaline Phosphatase 115 (40-150) U/L Albumin 4.4 (3.3-5.0) g/dL Urine 08/17/23 Range/Units 16:55 Urine Color Yellow (Yellow) Urine Appearance Clear (Clear) Urine pH 5.0 (5.0-8.5) Ur Specific [place] 1.010 (1.000-1.030) Urine Protein Negative (Negative) Urine Glucose (UA) Negative (Negative) ECG ECG interpretation date: 08/17/23 Interpretation: Atrial fibrillation, heart rate 97. Imaging CT scan - chest: Attestation: I have reviewed the pertinent imaging results. Radiologist's impression: IMPRESSION: 1. Near-complete resolution of right upper lobe infectious/inflammatory process, with a few residual ground-glass opacities. 2. No new acute infiltrates. 3. Acute nondisplaced fracture of the T10-T11 anterior bridging osteophyte with fracture plane extending into the T11 vertebral body. Assessment and Plan Assessment and plan (1) Recurrent cellulitis of lower leg: Problem comment: -Previously hospitalized 08/04-08/09/23 with left leg cellulitis and treated with Zosyn (+ azythromycin for pneumonia), then completed full course of outpatient oral Augmentin. -Recurrence noted 08/17/23 with fever up to 101.2 ? Fand chills. -BC obtained. -started on cefepime plus vancomycin 08/17/23. Status: Acute (2) Cellulitis of left leg: Problem comment: -as above Status: Acute (3) Pulmonary hypertension: Problem comment: per TTE 06/23, pulmonary artery pressure 51mmHG+RAP with moderate tricuspid valve regurgitation CT 08/05/23 and 08/17/23 shows mild bibasilar interlobular septal thickening likely representing superimposed mild pulmonary edema Status: Chronic (4) Diastolic heart failure with preserved ejection fraction: Problem comment: chronic. NYHA class 3. weight goal: 97 kg -during hospitalization 08/04-08/08-2023, some mild heart failure signs on imaging. Does not sound wet. BNP trended up. Will give additional IV dose Lasix (08/05) in addition to home dosing furosemide 60 mg daily, monitor. Weight -1kg. ECHO during previous admission 06/2023 demonstrates worsening degree of aortic stenosis, enlarging left atrium, moderate tricuspid valve regurgitation, severely increased pulmonary hypertension. These changes are new when compared to an echocardiogram in 2022. Final Impressions: 1. Normal LV size, moderately increased wall thickness, normal global systolic function with an estimated EF of 60 - 65%. 2. Right ventricular cavity size is mildly enlarged, global systolic RV function is normal. 3. The aortic valve is trileaflet and calcified, moderate stenosis and mild regurgitation. The aortic valve peak velocity is 2.9 m/s, the peak gradient is 34 mmHg, and the mean gradient is 19 mmHg. The aortic valve area is 0.95 cm?? with a dimensionless index of 0.29. The stroke volume index is 31.4 ml/m??. 4. The mitral valve is sclerotic, mild mitral regurgitation. 5. Mitral stenosis with mildly increased mean gradient of 3.9 mmHg at a heart rate of 60. 6. Mild-moderate tricuspid regurgitation. 7. Severely enlarged left atrium. 8. Dilated coronary sinus. 9. Severely increased estimated pulmonary pressures by tricuspid regurgitation velocity and right atrial pressure (51 mmHg plus RAP). [facility] consult was completed 06/16/2023-euvolemic status, oxygen supplementation necessary to prevent recurrent hospitalizations and exacerbations of CHF. -08/17/2023: Monitor daily weights. Continue with current supportive efforts. Status: Chronic (5) Tricuspid valve regurgitation: Problem comment: TTE 06/2023, Final Impressions: 1. Normal LV size, moderately increased wall thickness, normal global systolic function with an estimated EF of 60 - 65%. 2. Right ventricular cavity size is mildly enlarged, global systolic RV function is normal. 3. The aortic valve is trileaflet and calcified, moderate stenosis and mild regurgitation. The aortic valve peak velocity is 2.9 m/s, the peak gradient is 34 mmHg, and the mean gradient is 19 mmHg. The aortic valve area is 0.95 cm?? wi th a dimensionless index of 0.29. The stroke volume index is 31.4 ml/m??. 4. The mitral valve is sclerotic, mild mitral regurgitation. 5. Mitral stenosis with mildly increased mean gradient of 3.9 mmHg at a heart rate of 60. 6. Mild-moderate tricuspid regurgitation. 7. Severely enlarged left atrium. 8. Dilated coronary sinus. 9. Severely increased estimated pulmonary pressures by tricuspid regurgitation velocity and right atrial pressure (51 mmHg plus RAP). Status: Acute (6) Chronic hypoxic respiratory failure, on home oxygen therapy: Problem comment: -discharged on nighttime O2 when discharged from hospital 08/09/2023 -08/17/2023 BNP 2360, previously 7300. -O2 as needed for now and monitor Status: Acute (7) Atrial fibrillation: Problem comment: - Rate controlled with Metoprolol, Anticoagulated with warfarin with INR goal of 2-3 Status: Chronic (8) Right upper lobe pneumonia: Problem comment: -CT 08/05/23 shows few patchy ground-glass opacities within the central and inferior right upper lobe -treated with zosyn + azithromycin in hospital 08/05/23-08/09/23, transitioned to Augmentin at discharge and completed full course -Strep pneumo and Legionella Neg -Leukocytosis 19,000 resolved by discharge. BC x2 Neg. -CT chest without contrast 08/17/23: Resolution of of previous pulmonary infiltrates Status: Acute (9) Venous stasis ulcers of both lower extremities: Problem comment: -Severe -Followed by Navdeep Peña MD. -She does wear compression wraps and dressings [facility]. -No previous rest pain or claudication. -She does use lymphedema pumps daily, double layer compression wraps and leg elevation. Status: Acute (10) Aortic stenosis: Problem comment: -gradient increasing from 2060-1598. Status: Chronic (11) Essential hypertension: Problem comment: Metoprolol 25mg BID and Losartan 50mg continued -prn metoprolol IV hypertensive urgency Status: Chronic (12) Obstructive sleep apnea: Problem comment: Moderately severe with apnea-hypopnea index of 55 Non compliant with CPAP. Likely causing some chronic hypoxia without dyspnea Status: Chronic (13) Parkinson disease: Problem comment: - mildly progressive Parkinson's disease, treated with Sinemet - follows with Dr. Scott of Neurology Status: Chronic (14) Physical debility: Problem comment: Continue with PT/OT Plan to resume home health cares/therapies Status: Chronic (15) Warfarin anticoagulation: Problem comment: Pharmacy to manage, daily INR, goal 2-3 - monitor in setting of oral antibiotics Status: Chronic (16) Depression: Problem comment: prozac (bereavement related) Status: Chronic (17) Lymphadenopathy: Problem comment: Incidental finding. CT shows pretracheal lymphadenopathy and multiple prominent bihilar in left prevascular lymph nodes. Questionable reactive infectious/inflammatory process. Radiology recommending follow-up imaging after appropriate therapy to evaluate for interval change as underlying malignancy/metastatic disease cannot be entirely excluded Status: Acute Plan 1. I reviewed my impression and plans with the patient. 2. Answered her questions are satisfaction. 3. Patient agreeable with above stated plans and recommendations. 4. Will honor patient's request for DNR DNI resuscitation status, including that she would consider other intensive therapies if warranted such as CPAP or BiPAP, IV fluids, IV antibiotics, etc. Total Time Spent Total Time Spent: 65 minutes
[2023-08-17 20:31] LABS: NT Pro B Type NatriureticPept* 2360 pg/mL
[2023-08-17] MEDS: LORazepam 2 MG/ML inj 0.5 MG IVP (21:04)
[2023-08-17] MEDS: METOPROLOL TARTRATE 25 MG TABLET PO (21:49)
[2023-08-17] MEDS: ACETAMINOPHEN 325 MG TABLET 975 MG PO (21:49)
[2023-08-17] MEDS: GABAPENTIN 100 MG CAPSULE PO (21:50)
[2023-08-17] MEDS: WARFARIN 3 MG TABLET PO (21:50)
[2023-08-17] MEDS: CARBIDOPA-LEVODOPA 25-100 TABLET 1 TAB PO (21:50)
[2023-08-17] MEDS: LOSARTAN POTASSIUM 50 MG TABLET PO (21:50)
[2023-08-17] MEDS: SODIUM CHLORIDE 0.9 % (FLUSH) 10 ML SYRINGE 5 ML IVF (21:53)
--- NOTE | 2023-08-17 22:45 | PC.NURSE ---
ADMISSION NOTE: Pt admitted to room 258, pt moaning in pain, 4 person assist to move pt from the ER cart to the bed. Pt reported back pain 9/10, was SOB with exertion, on OxyMask 3L with oxygen saturations in the mid 90's. Turned oxygen down to 2L with oxygen saturations in the low 90's. Pt temp 99.0, recheck at 2100 was 100.2F. Pt initially unable to swallow her meds r/t coughing fit, spitting out frothy phlegm, HR 140's, crying r/t to pain, MD updated. Pt repositioned and 2.5mg Oxycodone given, ineffective. MD updated again and PRN Ativan ordered. Ativan given with pt having good relief. Pt given her PO medications for HS once she was able to perform task. Chronic wounds to LLE, dressed today by home care, per MD leave dressings in place with a wound consult in AM. Dressings are CDI. Pt reports 0/10 at recheck at 2200, pt HR now in the low 100's, pt denying CP, SOB and N/V at this time.
[2023-08-18] VITALS (11 sets, daily range): BP systolic 78–143; BP diastolic 46–90; PULSE 45–69; RESP 18–24; TEMP 36.4–36.7; O2SAT 91–95; BMI 41.8
[2023-08-18] MEDS: MORPHINE 2 MG/ML inj IVP (02:07)
[2023-08-18 06:37] LABS: HCO3 VBG 25 mmol/L (21-28); Lactate* 1.3 mmol/L (0.5-1.9); PCO2 VBG 44 mmHG (40-50); PO2 VBG 81.9 mmHG (25-47); pH VBG 7.371 (7.32-7.43)
[2023-08-18 06:47] LABS: Hematocrit 34.4 % (33.0-51.0); Hemoglobin* 10.8 gm/dL (12.0-16.0); Mean Corpuscular HGB Conc 31 gm/dL (32-36); Mean Corpuscular Hemoglobin 32 pg (26-34); Mean Corpuscular Volume 100 fL (80-100); Platelet Count* 216 K/uL (140-440); Red Blood Count 3.43 m/uL (4.00-5.20); White Blood Count* 19.83 K/uL (4.50-11.00)
[2023-08-18 06:50] LABS: Slide Review Reflex No
--- NOTE | 2023-08-18 06:51 | PC.NURSE ---
Addendum entered by Dori Bermudez RN 08/18/23 07:14: The morning MD was updated about low BP 95/46- see new order coming . Original Note: Shift note: The pt has been c/o of back , and left leg pain; the pain has been well managed after IV Morphine was given. Redness noted to the left lower leg, hot to touch. HELLEN wrap applied to both legs. SCD and TEDs didn't applied due to wound to the left leg. The pt has a wound to left ankle area and left calf; covered with dressing ; C/D/I.Redness to the lindsay area noted; the pt has been incontinent of urine- lindsay care has been completed. The pt has been turned and repositioned. No fever noted this shift. Spo2 has been in the 90s on 2L of oxygen via OxyMask. Tele has been showing Afib with Controlled HR <90. Denied dizzy, chest pain, or other acute distress.
[2023-08-18 07:06] LABS: INR 2.01 (0.91-1.10); Prothrombin Time 24.3 Seconds
[2023-08-18] MEDS: METOPROLOL TARTRATE 25 MG TABLET PO (08:38)
[2023-08-18] MEDS: FUROSEMIDE 20 MG TABLET 60 MG PO (08:38)
[2023-08-18] MEDS: POTASSIUM CHLORIDE 10 MEQ CAPSULE ER 40 MEQ PO (08:38)
[2023-08-18] MEDS: CARBIDOPA-LEVODOPA 25-100 TABLET 1 TAB PO ×3 (08:39→21:01)
[2023-08-18] MEDS: ACETAMINOPHEN 325 MG TABLET 975 MG PO ×3 (08:39→21:01)
[2023-08-18] MEDS: guaiFENesin 600 MG TAB.ER.12H PO ×2 (08:39→21:02)
[2023-08-18] MEDS: LOSARTAN POTASSIUM 50 MG TABLET PO (08:39)
[2023-08-18] MEDS: GABAPENTIN 100 MG CAPSULE PO (08:39)
[2023-08-18 09:09] LABS: Chloride* 106 mmol/L (96-114); Potassium* 4.8 mmol/L (3.6-5.1); Sodium* 135 mmol/L (135-149)
[2023-08-18 09:12] LABS: Est. Creatinine Clearance* 29.54; Estimated Glomerular Filt Rate 55 ml/min
[2023-08-18 09:13] LABS: Anion Gap 8 mEq/L (7-15); Blood Urea Nitrogen* 31 mg/dL (7-30); Carbon Dioxide* 21 mmol/L (20-32); Glucose* 127 mg/dL (60-115); Phosphorus* 4.5 mg/dL (2.5-4.5)
[2023-08-18 09:14] LABS: Calcium* 8.5 mg/dL (8.4-10.6); Magnesium* 2.2 mg/dL (1.5-2.6)
[2023-08-18 09:16] LABS: C Reactive Protein* 8.3 mg/dL (0.5-1.0)
[2023-08-18 09:27] LABS: NT Pro B Type NatriureticPept* 9200 pg/mL
[2023-08-18] MEDS: OXYCODONE 5 MG TABLET 2.5 MG PO (09:27)
[2023-08-18] MEDS: SODIUM CHLORIDE 0.9 % (FLUSH) 10 ML SYRINGE 5 ML IVF ×2 (09:29→21:02)
[2023-08-18 09:30] LABS: Procalcitonin* 2.88 ng/mL (<0.50)
--- NOTE | 2023-08-18 09:31 | PM.IMPN1 ---
Progress Note: A&P Assessment and plan (1) Recurrent cellulitis of lower leg: Problem details: - Previously hospitalized 08/04-08/09/23 for LLE cellulitis, treated with Zosyn (+ azithromycin for pneumonia), then completed full course of outpatient oral Augmentin - Recurrence noted 08/17/23 with fever up to 101.2 ? fever, chills, pain in LLE - BC obtained, NGTD on 08/17 - started on cefepime plus vancomycin 08/17/23. Status: Acute (2) Pulmonary hypertension: Problem details: - noted on TTE 06/23 with pulmonary artery pressure 51mmHG+RAP with moderate tricuspid valve regurgitation - CT 08/05/23 and 08/17/23 shows mild bibasilar interlobular septal thickening likely representing superimposed mild pulmonary edema Status: Chronic (3) Diastolic heart failure with preserved ejection fraction: Problem details: chronic. NYHA class 3. weight goal: 97 kg -during hospitalization 08/04-08/08-2023, some mild heart failure signs on imaging. Does not sound wet. BNP trended up. Will give additional IV dose Lasix (08/05) in addition to home dosing furosemide 60 mg daily, monitor. Weight -1kg. ECHO during previous admission 06/2023 demonstrates worsening degree of aortic stenosis, enlarging left atrium, moderate tricuspid valve regurgitation, severely increased pulmonary hypertension. These changes are new when compared to an echocardiogram in 2022. Final Impressions: 1. Normal LV size, moderately increased wall thickness, normal global systolic function with an estimated EF of 60 - 65%. 2. Right ventricular cavity size is mildly enlarged, global systolic RV function is normal. 3. The aortic valve is trileaflet and calcified, moderate stenosis and mild regurgitation. The aortic valve peak velocity is 2.9 m/s, the peak gradient is 34 mmHg, and the mean gradient is 19 mmHg. The aortic valve area is 0.95 cm?? with a dimensionless index of 0.29. The stroke volume index is 31.4 ml/m??. 4. The mitral valve is sclerotic, mild mitral regurgitation. 5. Mitral stenosis with mildly increased mean gradient of 3.9 mmHg at a heart rate of 60. 6. Mild-moderate tricuspid regurgitation. 7. Severely enlarged left atrium. 8. Dilated coronary sinus. 9. Severely increased estimated pulmonary pressures by tricuspid regurgitation velocity and right atrial pressure (51 mmHg plus RAP). [facility] Cardiology consult was completed 06/16/2023-euvolemic status, oxygen supplementation necessary to prevent recurrent hospitalizations and exacerbations of CHF. -08/17/2023: Monitor daily weights. Continue with current supportive efforts. Status: Chronic (4) Chronic hypoxic respiratory failure, on home oxygen therapy: Problem details: -discharged on nighttime O2 when discharged from hospital 08/09/2023 -08/17/2023 BNP 2360, previously 7300. -O2 as needed for now and monitor Status: Acute (5) Atrial fibrillation: Problem details: - Rate controlled with Metoprolol, Anticoagulated with warfarin with INR goal of 2-3 - noted to have intermittent bradycardia on telemetry 08/17, holding parameters written for Metoprolol Status: Chronic (6) Right upper lobe pneumonia: Problem details: -CT 08/05/23 shows few patchy ground-glass opacities within the central and inferior right upper lobe -treated with zosyn + azithromycin in hospital 08/05/23-08/09/23, transitioned to Augmentin at discharge and completed full course -Strep pneumo and Legionella Neg -Leukocytosis 19,000 resolved by discharge. BC x2 Neg. -CT chest without contrast 08/17/23: Resolution of of previous pulmonary infiltrates Status: Acute (7) Venous stasis ulcers of both lower extremities: Problem details: -Severe -Followed by Navdeep Peña MD. -She does wear compression wraps and dressings [facility]. -No previous rest pain or claudication. -She does use lymphedema pumps daily, double layer compression wraps and leg elevation. Status: Acute (8) Aortic stenosis: Problem details: - gradient increasing from [id number] Status: Chronic (9) Obstructive sleep apnea: Problem details: - Moderately severe with apnea-hypopnea index of 55 - Non compliant with CPAP. Likely causing some chronic hypoxia without dyspnea Status: Chronic (10) Parkinson disease: Problem details: - mildly progressive Parkinson's disease, treated with Sinemet - follows with Dr. Scott of Neurology Status: Chronic (11) Physical debility: Problem details: - Continue with PT/OT - Plan to resume home health cares/therapies Status: Chronic (12) Warfarin anticoagulation: Problem details: - Pharmacy to manage, daily INR, goal 2-3 - monitor in setting of antibiotic therapy Status: Chronic (13) Depression: Problem details: - Prozac (bereavement related) Status: Chronic (14) Lymphadenopathy: Problem details: - Incidental finding on 08/16 CT: pre-tracheal lymphadenopathy, multiple prominent bihilar in left prevascular lymph nodes - per formal radiology read: f/u imaging after appropriate therapy to evaluate for interval change as underlying malignancy/metastatic disease cannot be entirely excluded Status: Acute (15) Thoracic vertebral fracture: Problem details: - incidentally noted on admission imaging 08/16, does endorse some pain - add Lidocaine patch and Calcitonin nasal spray 08/17 Status: Acute Plan - per above Subjective Date Seen: 08/18/23 Interval history: Carmel was admitted to the hospital yesterday for recurrent left lower extremity cellulitis; presented with a fever, WBC of 20, worsening left lower extremity pain. She was started on vancomycin and cefepime, blood cultures pending and currently exhibit no growth to date. Notably hospitalized 2 weeks ago for cellulitis and pneumonia; pneumonia found to be cleared on imaging in the ER yesterday. This morning, Carmel continues to have discomfort in her left lower extremity. She has also noticed some mild back pain (on review, had an incidental T10 fracture on imaging). No chest pain or shortness of breath. No other concerns for hospitalist team. Exam Narrative: Exam Narrative: GEN: Alert and sitting comfortably in bedside chair, wearing supplemental oxygen HEENT: EOMIs bilaterally, no scleral icterus CV: Irregular, harsh systolic murmur heard best at RSB R: LCTA bilaterally without concerning wheezing, rales, or rhonchi Ext: Thin ankles bilaterally with diminished peripheral pulses. Capillary refill <3 seconds Skin: Hyperpigmentation of BLE c/w PVD, small 4mm open area of skin medially (covered with Aquacel), clear drainage noted Neuro: Resting tremor most notable RUE Psych: Appropriate Const: Vital Signs, click to edit/add: Vital Signs - 24 hr 08/17/23 14:19 08/17/23 14:22 08/17/23 14:28 Temperature 98.5 F Pulse Rate Pulse Rate [Left P ulse Oximeter] Pulse Rate [Pulse Oximeter] 96 Respiratory Rate 22 Blood Pressure Blood Pressure [Le ft Arm] Blood Pressure [Le ft Upper Arm] 184/123 H Pulse Oximetry 91 88 92 Oxygen Delivery Me thod Nasal Cannula Room Air Nasal Cannula Oxygen Flow Rate 5 2 08/17/23 14:30 08/17/23 14:31 08/17/23 14:45 Temperature Pulse Rate 111 H 99 95 Pulse Rate [Left P ulse Oximeter] Pulse Rate [Pulse Oximeter] Respiratory Rate 20 Blood Pressure 178/103 H Blood Pressure [Le ft Arm] Blood Pressure [Le ft Upper Arm] Pulse Oximetry 85 L 91 94 Oxygen Delivery Me thod OxyMask Oxygen Flow Rate 6 08/17/23 15:00 08/17/23 15:02 08/17/23 15:15 Temperature Pulse Rate 94 92 83 Pulse Rate [Left P ulse Oximeter] Pulse Rate [Pulse Oximeter] Respiratory Rate Blood Pressure 151/88 H Blood Pressure [Le ft Arm] Blood Pressure [Le ft Upper Arm] Pulse Oximetry 97 95 99 Oxygen Delivery Me thod Oxygen Flow Rate 08/17/23 15:22 08/17/23 15:30 08/17/23 15:32 Temperature Pulse Rate 90 98 Pulse Rate [Left P ulse Oximeter] Pulse Rate [Pulse Oximeter] Respiratory Rate Blood Pressure 135/73 Blood Pressure [Le ft Arm] Blood Pressure [Le ft Upper Arm] Pulse Oximetry 98 99 Oxygen Delivery Me thod OxyMask Oxygen Flow Rate 6 08/17/23 15:40 08/17/23 15:40 08/17/23 15:45 Temperature Pulse Rate Pulse Rate [Left P ulse Oximeter] Pulse Rate [Pulse Oximeter] Respiratory Rate Blood Pressure Blood Pressure [Le ft Arm] Blood Pressure [Le ft Upper Arm] Pulse Oximetry 98 87 L Oxygen Delivery Me thod Nasal Cannula Oxygen Flow Rate 08/17/23 16:01 08/17/23 16:03 08/17/23 16:15 Temperature Pulse Rate 87 95 94 Pulse Rate [Left P ulse Oximeter] Pulse Rate [Pulse Oximeter] Respiratory Rate Blood Pressure 130/69 Blood Pressure [Le ft Arm] Blood Pressure [Le ft Upper Arm] Pulse Oximetry 100 97 87 L Oxygen Delivery Me thod Oxygen Flow Rate 08/17/23 16:43 08/17/23 16:45 08/17/23 17:00 Temperature Pulse Rate 112 H 90 86 Pulse Rate [Left P ulse Oximeter] Pulse Rate [Pulse Oximeter] Respiratory Rate Blood Pressure Blood Pressure [Le ft Arm] Blood Pressure [Le ft Upper Arm] Pulse Oximetry 90 94 86 L Oxygen Delivery Me thod Oxygen Flow Rate 08/17/23 17:07 08/17/23 17:08 08/17/23 17:12 Temperature Pulse Rate 89 Pulse Rate [Left P ulse Oximeter] Pulse Rate [Pulse Oximeter] Respiratory Rate 22 Blood Pressure 135/92 H Blood Pressure [Le ft Arm] Blood Pressure [Le ft Upper Arm] Pulse Oximetry 97 Oxygen Delivery Me thod OxyMask Oxygen Flow Rate 4 08/17/23 17:15 08/17/23 17:30 08/17/23 17:32 Temperature 98.0 F Pulse Rate 85 83 Pulse Rate [Left P ulse Oximeter] Pulse Rate [Pulse Oximeter] Respiratory Rate Blood Pressure 143/69 H Blood Pressure [Le ft Arm] Blood Pressure [Le ft Upper Arm] Pulse Oximetry 90 89 91 Oxygen Delivery Me thod Oxygen Flow Rate 08/17/23 17:33 08/17/23 19:15 08/17/23 19:15 Temperature 99.0 F Pulse Rate 100 Pulse Rate [Left P ulse Oximeter] Pulse Rate [Pulse Oximeter] Respiratory Rate 22 22 Blood Pressure Blood Pressure [Le ft Arm] 144/60 H Blood Pressure [Le ft Upper Arm] Pulse Oximetry 90 90 90 Oxygen Delivery Me thod OxyMask OxyMask Oxygen Flow Rate 2 2 08/18/23 00:20 08/18/23 00:20 08/18/23 00:20 Temperature 97.9 F Pulse Rate Pulse Rate [Left P ulse Oximeter] Pulse Rate [Pulse Oximeter] Respiratory Rate 22 20 20 Blood Pressure Blood Pressure [Le ft Arm] 99/65 Blood Pressure [Le ft Upper Arm] Pulse Oximetry 92 92 Oxygen Delivery Me thod Nasal Cannula OxyM ask Nasal Cannula OxyM ask Oxygen Flow Rate 2 2 08/18/23 03:29 08/18/23 05:00 08/18/23 07:00 Temperature 97.5 F L 97.8 F Pulse Rate 57 L Pulse Rate [Left P ulse Oximeter] 69 Pulse Rate [Pulse Oximeter] Respiratory Rate 20 20 Blood Pressure Blood Pressure [Le ft Arm] 95/46 L 107/90 H Blood Pressure [Le ft Upper Arm] Pulse Oximetry 94 95 Oxygen Delivery Me thod Nasal Cannula OxyM ask Nasal Cannula Oxygen Flow Rate 2 2 08/18/23 07:00 08/18/23 09:27 Temperature Pulse Rate 64 Pulse Rate [Left P ulse Oximeter] Pulse Rate [Pulse Oximeter] Respiratory Rate 20 Blood Pressure Blood Pressure [Le ft Arm] Blood Pressure [Le ft Upper Arm] Pulse Oximetry 95 Oxygen Delivery Me thod Nasal Cannula Oxygen Flow Rate 2 Labs Labs: Laboratory Results - last 24 hr 08/17/23 08/17/23 08/17/23 16:12 16:55 19:15 WBC 23.08 H RBC 4.12 Hgb 12.9 Hct 41.3 MCV 100 MCH 31 MCHC 31 L RDW Coeff of Mandeep 15.0 Plt Count 263 Neut % (Auto) 94.1 H Lymph % (Auto) 1.0 L Howell % (Auto) 4.1 Eos % (Auto) 0.2 Baso % (Auto) 0.2 Neut # (Auto) 21.70 H Lymph # (Auto) 0.20 L Howell # (Auto) 0.90 Eos # (Auto) 0.00 Baso # (Auto) 0.00 Abs Immat Gran (auto) 0.10 Imm/Tot Granulo (auto) 0.4 INR 1.93 H VBG pH 7.340 VBG pCO2 49 VBG pO2 < 30.1 VBG HCO3 26 Sodium 138 Potassium 4.2 Chloride 103 Carbon Dioxide 26 Anion Gap 9 BUN 23 Creatinine 0.8 Estimated Creat Clear 29.54 Estimated GFR 72 Glucose 108 Lactate 2.1 H Calcium 8.9 Phosphorus Magnesium Total Bilirubin 0.9 AST 16 ALT 9 Alkaline Phosphatase 115 C-Reactive Protein 2.0 H NT-Pro-B Natriuret Pep 2360 Total Protein 7.6 Albumin 4.4 Urine Color Yellow Urine Appearance Clear Urine pH 5.0 Ur Specific [place] 1.010 Urine Protein Negative Urine Glucose (UA) Negative Urine Ketones Negative Urine Blood Negative Urine Nitrite Negative Urine Bilirubin Negative Urine Urobilinogen 0.2 Ur Leukocyte Esterase Negative Urine RBC 0-2 Urine WBC 0-2 Ur Squamous Epith Cells Few Other Sediment Few A Urine Bacteria None SARS-CoV-2 (PCR) Negative SARS-CoV-2 Influenza Type A (PCR) Negative PCR FLU A Influenza Type B (PCR) Negative PCR FLU B RSV (PCR) Negative PCR RSV Lab Acknowledgement Test Added 08/18/23 06:15 WBC 19.83 H RBC 3.43 L Hgb 10.8 L Hct 34.4 MCV 100 MCH 32 MCHC 31 L RDW Coeff of Mandeep Plt Count 216 Neut % (Auto) Lymph % (Auto) Howell % (Auto) Eos % (Auto) Baso % (Auto) Neut # (Auto) Lymph # (Auto) Howell # (Auto) Eos # (Auto) Baso # (Auto) Abs Immat Gran (auto) Imm/Tot Granulo (auto) INR 2.01 H VBG pH 7.371 VBG pCO2 44 VBG pO2 81.9 H VBG HCO3 25 Sodium 135 Potassium 4.8 Chloride 106 Carbon Dioxide 21 Anion Gap 8 BUN 31 H Creatinine 1.0 Estimated Creat Clear 29.54 Estimated GFR 55 Glucose 127 H Lactate 1.3 Calcium 8.5 Phosphorus 4.5 Magnesium 2.2 Total Bilirubin AST ALT Alkaline Phosphatase C-Reactive Protein 8.3 H NT-Pro-B Natriuret Pep 9200 Total Protein Albumin Urine Color Urine Appearance Urine pH Ur Specific [place] Urine Protein Urine Glucose (UA) Urine Ketones Urine Blood Urine Nitrite Urine Bilirubin Urine Urobilinogen Ur Leukocyte Esterase Urine RBC Urine WBC Ur Squamous Epith Cells Other Sediment Urine Bacteria SARS-CoV-2 (PCR) Influenza Type A (PCR) Influenza Type B (PCR) RSV (PCR) Lab Acknowledgement
[2023-08-18] MEDS: FLUOXETINE HCL 10 MG CAPSULE 30 MG PO (09:34)
[2023-08-18] MEDS: LIDOCAINE 5% PATCH 1 PATCH TRANSDERMA (10:29)
--- NOTE | 2023-08-18 11:30 | PC.SOCIAL ---
Discharge planning: spool worker talked with nurse Laly at [facility] and she stated that Shayla [facility] nurse will come to meet with the pt today between 1:30-2pm. spool worker clarified with nurse Ruffin if [facility] administers the pt's medications or not and Laly said that they do. spool worker relayed this information to the provider on duty, as the staff on med/surg were wanting clarification. spool worker told Laly that the provider thought the pt would be here for a few days. Social work to follow-up as needed.
[2023-08-18] MEDS: 0.9 % SODIUM CHLORIDE 250 ml 250 ML IV (11:42)
--- NOTE | 2023-08-18 15:17 | PC.NURSE ---
End of Shift: Patient pleasant and cooperative, A&O. Patient was hypotensive and bradycardic this shift, MD notified, given a 250 bolus. SpO2 has been maintained above 90% on 2L O2. Incontinent of bladder, brief changed. Patient has spent the majority of this shift in her chair, repositioned frequently. Dressing on left ankle C/D/I. Patient has been wearing precious wraps around her legs throughout the day, she reports that the precious wraps cause her legs to spasm and is painful. Pain on left leg rating a 6 out of 10, managed with PRN medication, see MAR.
[2023-08-18] MEDS: WARFARIN 2 MG TABLET 4 MG PO (16:51)
--- NOTE | 2023-08-18 18:05 | PC.NURSE ---
End of Shift([id number]): Patient pleasant and cooperative. Patient vitally stable, at time ayaka in the high 40s but stable, lungs course, BS WNL, IV intact and SL. Patient rates left leg pain 3/10, no pain meds given. Patient on 1 L NS sating in the low 90s. Patient incontinent of urine, and tolerating regular diet well. Patient has been up in chair this shift. Patient left ankle dressing C/D/I. Patient up in chair this shift. Tele= Leslie ferreira/[place].
[2023-08-18] MEDS: 0.9 % SODIUM CHLORIDE 250 ml IV (18:41)
[2023-08-18] MEDS: CEFEPIME HCL 2 GM in 0.9 % SODIUM CHLORIDE Mini-bag 100 ML IVPB (18:41)
[2023-08-18] MEDS: CALCITONIN SALMON NASAL SPRAY 200 UNIT 1 SPRAY NOSTRIL-B (21:07)
--- NOTE | 2023-08-18 22:35 | PC.NURSE ---
Nursing Care Hours: [id number] Pt this shift calm and cooperative with cares, alert and oriented. VSS, no c/o pain. Left leg more pink than R leg, slight increase in skin temp as well. Up to bathroom Ax1 with walker and gait belt. SOB with exertion. Lodging Facilities Attendant encouraging pt to breathe through nose and out of mouth and take breaks as needed. SpO2 79% on RA when back from bathroom and sitting in recliner, recovered after 1.5L placed NC, titrate to 0.5L NC to maintain above 93%. Dry cough increased after bathroom visit, treated with oral fluids. Extension tubing for O2 set up and pt advised to use O2 during ambulation and breathe through the nose. ABX infusing. Held Metoprolol d/t HR 53 while sleeping in chair.
[2023-08-19] VITALS (11 sets, daily range): BP systolic 127–182; BP diastolic 67–101; PULSE 59–76; RESP 18–24; TEMP 36.6–36.7; O2SAT 86–98
--- NOTE | 2023-08-19 06:15 | PC.NURSE ---
End of shift [id number]: A&O pleasant and cooperative. VSS w/ sats >88% on 0.5 L of oxygen. Pt sleeping in recliner per request. Check and change brief q2h. up w/ A1 walker and gait belt to the bathroom. Using call light appropriately.
[2023-08-19 06:31] LABS: HCO3 VBG 25 mmol/L (21-28); PCO2 VBG 53 mmHG (40-50); PO2 VBG 31.5 mmHG (25-47); pH VBG 7.287 (7.32-7.43)
[2023-08-19 06:41] LABS: Basophils Absolute Auto 0.04 K/uL (0.00-0.30); Basophils Percent Auto 0.4 % (0.0-3.0); Eosinophils Percent Auto 3.8 % (0.0-7.0); Hematocrit 34.8 % (33.0-51.0); Hemoglobin* 10.6 gm/dL (12.0-16.0); Immature Granulocytes Abs Auto 0.03 K/uL (0.00-0.30); Immature Granulocytes Pct Auto 0.3 %; Lymphocytes Percent Auto 2.4 % (20-44); Mean Corpuscular HGB Conc 31 gm/dL (32-36); Mean Corpuscular Hemoglobin 32 pg (26-34); Mean Corpuscular Volume 103 fL (80-100); Monocytes Percent Auto 5.7 % (0.0-11.0); Neutrophils Percent Auto 87.4 % (42.0-72.0); Platelet Count* 213 K/uL (140-440); RDW Coefficient of Variation % 15.3 % (11.5-15.5); Red Blood Count 3.37 m/uL (4.00-5.20); White Blood Count* 10.56 K/uL (4.50-11.00)
[2023-08-19 06:44] LABS: Slide Review Reflex No
[2023-08-19 06:52] LABS: Chloride* 105 mmol/L (96-114); Sodium* 137 mmol/L (135-149)
[2023-08-19 06:55] LABS: Anion Gap 8 mEq/L (7-15); Blood Urea Nitrogen* 43 mg/dL (7-30); Carbon Dioxide* 24 mmol/L (20-32); Creatinine* 1.2 mg/dL (0.5-1.5); Est. Creatinine Clearance* 24.62; Estimated Glomerular Filt Rate 44 ml/min; Glucose* 94 mg/dL (60-115); INR 2.48 (0.91-1.10); Prothrombin Time 28.7 Seconds
[2023-08-19 06:56] LABS: Calcium* 8.3 mg/dL (8.4-10.6)
[2023-08-19] MEDS: ACETAMINOPHEN 325 MG TABLET 975 MG PO ×3 (08:05→21:12)
[2023-08-19] MEDS: POTASSIUM CHLORIDE 10 MEQ CAPSULE ER 40 MEQ PO (08:05)
[2023-08-19] MEDS: FUROSEMIDE 20 MG TABLET 60 MG PO (08:05)
[2023-08-19] MEDS: SODIUM CHLORIDE 0.9 % (FLUSH) 10 ML SYRINGE 5 ML IVF ×2 (08:06→21:14)
[2023-08-19] MEDS: guaiFENesin 600 MG TAB.ER.12H PO ×2 (08:06→21:13)
[2023-08-19] MEDS: METOPROLOL TARTRATE 25 MG TABLET PO ×2 (08:06→21:13)
[2023-08-19] MEDS: CARBIDOPA-LEVODOPA 25-100 TABLET 1 TAB PO ×3 (08:07→21:13)
[2023-08-19] MEDS: FLUOXETINE HCL 10 MG CAPSULE 30 MG PO (08:09)
--- NOTE | 2023-08-19 09:57 | RESP.RT ---
Pt has reported to me twice that she does have an oxygen set-up at her residence. She once again states she won't be using oxygen at home, as she does not need it. My colleagues and I have had many conversations with her to encourage the use, and education on the reasons for use.
--- NOTE | 2023-08-19 10:05 | PM.IMPN1 ---
Progress Note: A&P Assessment and plan (1) Recurrent cellulitis of lower leg: Problem details: - Previously hospitalized 08/04-08/09/23 for LLE cellulitis, treated with Zosyn (+ azithromycin for pneumonia), then completed full course of outpatient oral Augmentin - Recurrence noted 08/17/23 with fever up to 101.2 ? fever, chills, pain in LLE - BC obtained, NGTD on 08/18 - Started on cefepime plus vancomycin 08/17/23, Vancomycin discontinued on 08/18 given negative cultures, negative MRSA swab, clinical improvement Status: Acute (2) Pulmonary hypertension: Problem details: - noted on TTE 06/23 with pulmonary artery pressure 51mmHG+RAP with moderate tricuspid valve regurgitation - CT 08/05/23 and 08/17/23 exhibit mild bibasilar interlobular septal thickening likely representing superimposed mild pulmonary edema Status: Chronic (3) Confusion: Problem details: - intermittent since admission - ddx: Hospital delirium, infection, CO2 retention, mild cognitive impairment in the setting of known Parkinson disease, iatrogenic - noted primarily when seated so I do not think (known moderate disease) contributing; consider repeat TTE with any significant change in status - we are holding her gabapentin, limiting oxycodone administration, following VBGs - therapies following Status: Acute (4) Diastolic heart failure with preserved ejection fraction: Problem details: - chronic, NYHA class 3. weight goal: 97 kg - ECHO during previous admission 06/2023 demonstrates worsening degree of , enlarging left atrium, moderate TR, severely increased pulmonary hypertension. These changes are new when compared to an echocardiogram in 2022. Final Impressions: 1. Normal LV size, moderately increased wall thickness, normal global systolic function with an estimated EF of 60 - 65%. 2. Right ventricular cavity size is mildly enlarged, global systolic RV function is normal. 3. The aortic valve is trileaflet and calcified, moderate stenosis and mild regurgitation. The aortic valve peak velocity is 2.9 m/s, the peak gradient is 34 mmHg, and the mean gradient is 19 mmHg. The aortic valve area is 0.95 cm?? with a dimensionless index of 0.29. The stroke volume index is 31.4 ml/m??. 4. The mitral valve is sclerotic, mild mitral regurgitation. 5. Mitral stenosis with mildly increased mean gradient of 3.9 mmHg at a heart rate of 60. 6. Mild-moderate tricuspid regurgitation. 7. Severely enlarged left atrium. 8. Dilated coronary sinus. 9. Severely increased estimated pulmonary pressures by tricuspid regurgitation velocity and right atrial pressure (51 mmHg plus RAP). [facility] Cardiology consult was completed 06/16/2023-euvolemic status, oxygen supplementation necessary to prevent recurrent hospitalizations and exacerbations of CHF. -08/17/2023: Monitor daily weights. Continue with current supportive efforts. Status: Chronic (5) Chronic hypoxic respiratory failure, on home oxygen therapy: Problem details: - discharged on nighttime O2 when discharged from hospital 08/09/2023, not compliant with this at home - 08/17/2023 BNP 2360, previously 7300. - O2 as needed for now and monitor Status: Acute (6) Atrial fibrillation: Problem details: - Rate controlled with Metoprolol, Anticoagulated with warfarin with INR goal of 2-3 - noted to have intermittent bradycardia on telemetry 08/17, holding parameters written for Metoprolol Status: Chronic (7) Venous stasis ulcers of both lower extremities: Problem details: - Severe - Followed by Navdeep Peña MD - She does wear compression wraps and dressings [facility] - No previous rest pain or claudication - She does use lymphedema pumps daily, double layer compression wraps and leg elevation Status: Acute (8) Aortic stenosis: Problem details: - gradient increasing from 3843-5138 Status: Chronic (9) Obstructive sleep apnea: Problem details: - Moderately severe with apnea-hypopnea index of 55 - Non compliant with CPAP. Likely causing some chronic hypoxia without dyspnea Status: Chronic (10) Parkinson disease: Problem details: - mildly progressive Parkinson's disease, treated with Sinemet - follows with Dr. Scott of Neurology Status: Chronic (11) Physical debility: Problem details: - Continue with PT/OT - Plan to resume home health cares/therapies Status: Chronic (12) Warfarin anticoagulation: Problem details: - Pharmacy to manage, daily INR, goal 2-3 - monitor in setting of antibiotic therapy Status: Chronic (13) Depression: Problem details: - Prozac (bereavement related) Status: Chronic (14) Lymphadenopathy: Problem details: - Incidental finding on 08/16 CT: pre-tracheal lymphadenopathy, multiple prominent bihilar in left prevascular lymph nodes - per formal radiology read: f/u imaging after appropriate therapy to evaluate for interval change as underlying malignancy/metastatic disease not entirely excluded Status: Acute (15) Thoracic vertebral fracture: Problem details: - incidentally noted on admission imaging 08/16, does endorse some pain - add Lidocaine patch and Calcitonin nasal spray 08/17 Status: Acute Plan - per above - Warfarin for ppx - likely 1-2 more days inpatient, then back to previous living situation Subjective Date Seen: 08/19/23 Interval history: Carmel was admitted to the hospital on 08/16 for recurrent left lower extremity cellulitis; presented with a fever, WBC of 20, worsening left lower extremity pain. She was started on Vancomycin and Cefepime, blood cultures pending and currently exhibit no growth to date. Notably hospitalized in early July for cellulitis and pneumonia; pneumonia found to be cleared on imaging in the ER upon admission. She continues to have intermittent hypoxia, stable on low dose supplemental oxygen. She is notably noncompliant with oxygen at home. This morning, Carmel has no specific concerns for the hospitalist team. She does have some intermittent confusion (has a hard time remembering how long she has been in the hospital, can not remember the name of her current assisted living facility). Therapies are following. Exam Narrative: Exam Narrative: GEN: Alert and answering questions appropriately, sitting comfortably in bedside chair HEENT: EOMIs bilaterally, no scleral icterus CV: RRR, harsh systolic murmur heard best at RSB R: LCTA bilaterally without concerning wheezing Ext: LEs wrapped with HELLEN wraps and not formally examined today Neuro: Resting tremor of tongue and LUE, stable/chronic for known Parkinson history Psych: Appropriate Const: Vital Signs, click to edit/add: Vital Signs - 24 hr 08/18/23 11:00 08/18/23 14:47 08/18/23 15:35 Temperature 97.8 F 97.6 F Pulse Rate 45 L Pulse Rate [Left P ulse Oximeter] 53 L 62 Respiratory Rate 24 18 Blood Pressure [Le ft Arm] 78/47 L 105/57 L Pulse Oximetry 92 91 Oxygen Delivery Me thod Nasal Cannula Nasal Cannula Oxygen Flow Rate 2 1 08/18/23 15:35 08/18/23 15:35 08/18/23 19:00 Temperature 98.0 F Pulse Rate Pulse Rate [Left P ulse Oximeter] 62 62 Respiratory Rate 18 18 18 Blood Pressure [Le ft Arm] 123/57 L Pulse Oximetry 91 92 Oxygen Delivery Me thod Nasal Cannula Nasal Cannula Oxygen Flow Rate 1 0.5 08/18/23 23:32 08/18/23 23:42 08/19/23 00:15 Temperature 97.6 F Pulse Rate 69 Pulse Rate [Left P ulse Oximeter] 65 Respiratory Rate 18 Blood Pressure [Le ft Arm] 143/72 H Pulse Oximetry 95 95 Oxygen Delivery Me thod Nasal Cannula Nasal Cannula Oxygen Flow Rate 0.5 0.5 08/19/23 02:43 08/19/23 07:00 08/19/23 07:00 Temperature 97.8 F Pulse Rate 64 Pulse Rate [Left P ulse Oximeter] 73 59 L Respiratory Rate 18 20 Blood Pressure [Le ft Arm] 141/67 H Pulse Oximetry 96 Oxygen Delivery Me thod Nasal Cannula Oxygen Flow Rate 0.5 08/19/23 07:00 08/19/23 07:00 08/19/23 08:31 Temperature 97.9 F Pulse Rate Pulse Rate [Left P ulse Oximeter] 59 L Respiratory Rate 20 20 Blood Pressure [Le ft Arm] 157/72 H Pulse Oximetry 98 98 92 Oxygen Delivery Me thod Nasal Cannula Nasal Cannula Room Air Oxygen Flow Rate 0.5 0.5 08/19/23 09:56 Temperature Pulse Rate Pulse Rate [Left P ulse Oximeter] Respiratory Rate Blood Pressure [Le ft Arm] Pulse Oximetry 86 L Oxygen Delivery Me thod Room Air Oxygen Flow Rate Labs Labs: Laboratory Results - last 24 hr 08/19/23 06:09 WBC 10.56 RBC 3.37 L Hgb 10.6 L Hct 34.8 MCV 103 H MCH 32 MCHC 31 L RDW Coeff of Mandeep 15.3 Plt Count 213 Neut % (Auto) 87.4 H Lymph % (Auto) 2.4 L [place] % (Auto) 5.7 Eos % (Auto) 3.8 Baso % (Auto) 0.4 Neut # (Auto) 9.20 H Lymph # (Auto) 0.30 L [place] # (Auto) 0.60 Eos # (Auto) 0.40 Baso # (Auto) 0.04 Abs Immat Gran (auto) 0.03 Imm/Tot Granulo (auto) 0.3 INR 2.48 H VBG pH 7.287 L VBG pCO2 53 H VBG pO2 31.5 VBG HCO3 25 Sodium 137 Potassium 5.0 Chloride 105 Carbon Dioxide 24 Anion Gap 8 BUN 43 H Creatinine 1.2 Estimated Creat Clear 24.62 Estimated GFR 44 Glucose 94 Calcium 8.3 L
--- NOTE | 2023-08-19 10:46 | NUTR.NU ---
Nutrition Follow-up: RDN visited with patient whom reports tolerating meals well. Current diet is 2 gram sodium. Meal intakes have been adequate at 75%+ since admit. Patient lives in an assisted living where meals are provided for her. She tries to follow a low sodium diet. Premier Protein ordered at 1500 four wound healing. She reports not receiving premier protein yesterday, however she would like to continue to be offered this. She had no questions or concerns at this time. Patient declined heat failure diet education at this time. RDN will continue to monitor and follow-up prn.
[2023-08-19] MEDS: LIDOCAINE 5% PATCH 1 PATCH TRANSDERMA (12:46)
--- NOTE | 2023-08-19 14:09 | PC.NURSE ---
End of shift [id number]: Pt has been A&O for engineering writer but therapy staff reports pt has been disoriented to place and time. She?s been afebrile and VSS. Metoprolol parameters have been removed d/t BP returning to baseline. She is Ax1 with 2ww for ambulation and transfers. Pt remains on 0.5L NC d/t inability to maintain > 90% on RA. Even with O2 therapy, she continues to briefly desat to 85-86% during ambulation with a quick recovery. Pt is continent/incontinent of urine and continent of bowels. She had x1 large formed BM today. Pt denies any nausea or dizziness. Reports tenderness in BLL, HELLEN wraps were applied this morning. Left posterior ankle dressing is C/D/I and followed by WOC. PIV in right hand SL and C/D/I. TELE reads Leslie Rod NVR with prolonged QT. Lidocaine patch applied to lower back d/t pain r/t vertebral fx. ?
--- NOTE | 2023-08-19 14:39 | PC.SOCIAL ---
Discharge planning: slab worker connected with Shayla from [facility]. Shayla was not able to see the pt yesterday and will see the pt today for a face to face assessment and check-in. Social work to follow-up as needed.
[2023-08-19] MEDS: WARFARIN 3 MG TABLET PO (16:54)
[2023-08-19] MEDS: 0.9 % SODIUM CHLORIDE 250 ml IV (18:49)
[2023-08-19] MEDS: CEFEPIME HCL 2 GM in 0.9 % SODIUM CHLORIDE Mini-bag 100 ML IVPB (18:51)
--- NOTE | 2023-08-19 20:01 | PC.NURSE ---
End of shift [id number] - RN took over pt care at 1500. Pt alert, oriented, cooperative and pleasant. Up to bathroom with standby assistance walker and gait belt. Continent of bladder during shift. Tolerating RA, regular diet/fluids. Pt noted to experience SOB with exertion, refused O2 via nasal cannula and recovered appropriately. IV site d/c'd with catheter intact, new site placed. Dressings on LLE CDI. Pt appears to be resting comfortably in chair at end of shift.
[2023-08-19] MEDS: CALCITONIN SALMON NASAL SPRAY 200 UNIT 1 SPRAY NOSTRIL-B (21:12)
[2023-08-19] MEDS: OXYCODONE 5 MG TABLET 2.5 MG PO (21:13)
[2023-08-20] VITALS (13 sets, daily range): BP systolic 127–194; BP diastolic 93–109; PULSE 66–91; RESP 16–24; TEMP 36.6–36.8; O2SAT 90–95
[2023-08-20 06:47] LABS: HCO3 VBG 26 mmol/L (21-28); PCO2 VBG 44 mmHG (40-50); PO2 VBG 36.4 mmHG (25-47); pH VBG 7.382 (7.32-7.43)
[2023-08-20 06:55] LABS: Basophils Absolute Auto 0.02 K/uL (0.00-0.30); Basophils Percent Auto 0.2 % (0.0-3.0); Eosinophils Absolute Auto 0.29 K/uL (0.00-0.50); Eosinophils Percent Auto 3.3 % (0.0-7.0); Hematocrit 36.1 % (33.0-51.0); Hemoglobin* 11.2 gm/dL (12.0-16.0); Immature Granulocytes Abs Auto 0.01 K/uL (0.00-0.30); Immature Granulocytes Pct Auto 0.1 %; Lymphocytes Percent Auto 2.1 % (20-44); Mean Corpuscular HGB Conc 31 gm/dL (32-36); Mean Corpuscular Hemoglobin 31 pg (26-34); Mean Corpuscular Volume 101 fL (80-100); Neutrophils Percent Auto 88.3 % (42.0-72.0); Platelet Count* 224 K/uL (140-440); Red Blood Count 3.59 m/uL (4.00-5.20); White Blood Count* 8.72 K/uL (4.50-11.00)
[2023-08-20 07:00] LABS: Slide Review Reflex No
[2023-08-20 07:05] LABS: Chloride* 105 mmol/L (96-114); INR 2.22 (0.91-1.10); Potassium* 4.5 mmol/L (3.6-5.1); Prothrombin Time 26.3 Seconds; Sodium* 137 mmol/L (135-149)
[2023-08-20 07:07] LABS: Creatinine* 0.9 mg/dL (0.5-1.5); Est. Creatinine Clearance* 29.01; Estimated Glomerular Filt Rate 62 ml/min
[2023-08-20 07:08] LABS: Anion Gap 8 mEq/L (7-15); Blood Urea Nitrogen* 34 mg/dL (7-30); Calcium* 8.8 mg/dL (8.4-10.6); Carbon Dioxide* 24 mmol/L (20-32); Glucose* 97 mg/dL (60-115)
--- NOTE | 2023-08-20 07:15 | PC.NURSE ---
-End of shift [id number]: A&O pleasant and cooperative. VSS w/ sats >88% on RA. Pt sleeping in recliner per request. A1 w/ walker and gait belt to the bathroom. Occasionally incontinent. Pt needs to be encouraged to ambulate to the bathroom.
[2023-08-20] MEDS: guaiFENesin 600 MG TAB.ER.12H PO ×2 (08:12→21:23)
[2023-08-20] MEDS: POTASSIUM CHLORIDE 10 MEQ CAPSULE ER 40 MEQ PO (08:12)
[2023-08-20] MEDS: METOPROLOL TARTRATE 25 MG TABLET PO ×2 (08:13→21:23)
[2023-08-20] MEDS: FLUOXETINE HCL 10 MG CAPSULE 30 MG PO (08:13)
[2023-08-20] MEDS: FUROSEMIDE 20 MG TABLET 60 MG PO (08:13)
[2023-08-20] MEDS: CARBIDOPA-LEVODOPA 25-100 TABLET 1 TAB PO ×3 (08:13→21:24)
[2023-08-20] MEDS: ACETAMINOPHEN 325 MG TABLET 975 MG PO ×3 (08:14→21:24)
[2023-08-20] MEDS: SODIUM CHLORIDE 0.9 % (FLUSH) 10 ML SYRINGE 5 ML IVF ×2 (08:14→21:25)
[2023-08-20] MEDS: LIDOCAINE 5% PATCH 1 PATCH TRANSDERMA (10:36)
[2023-08-20] MEDS: BENZOCAINE/MENTHOL 1 EACH LOZENGE MUCOUS MEM ×3 (11:38→21:54)
--- NOTE | 2023-08-20 12:12 | PM.IMPN1 ---
Progress Note: A&P Assessment and plan (1) Recurrent cellulitis of lower leg: Problem details: - Previously hospitalized 08/04-08/09/23 for LLE cellulitis, treated with Zosyn (+ azithromycin for pneumonia), then completed full course of outpatient oral Augmentin - Recurrence noted 08/17/23 with fever up to 101.2 ? fever, chills, pain in LLE - BC obtained, NGTD on 08/18 - Started on cefepime plus vancomycin 08/17/23, Vancomycin discontinued on 08/18 given negative cultures, negative MRSA swab, clinical improvement - plan to d/c home on Doxycycline Status: Acute (2) Pulmonary hypertension: Problem details: - noted on TTE 06/23 with pulmonary artery pressure 51mmHG+RAP with moderate tricuspid valve regurgitation - CT 08/05/23 and 08/17/23 exhibit mild bibasilar interlobular septal thickening likely representing superimposed mild pulmonary edema Status: Chronic (3) Confusion: Problem details: - intermittent since admission - ddx: Hospital delirium, infection, CO2 retention, mild cognitive impairment in the setting of known Parkinson disease, iatrogenic - noted primarily when seated so I do not think (known moderate disease) contributing; consider repeat TTE with any significant change in status - we have discontinued her gabapentin, limiting oxycodone administration, following VBGs - therapies following Status: Acute (4) Diastolic heart failure with preserved ejection fraction: Problem details: - chronic, NYHA class 3. weight goal: 97 kg - ECHO during previous admission 06/2023 demonstrates worsening degree of , enlarging left atrium, moderate TR, severely increased pulmonary hypertension. These changes are new when compared to an echocardiogram in 2022. Final Impressions: 1. Normal LV size, moderately increased wall thickness, normal global systolic function with an estimated EF of 60 - 65%. 2. Right ventricular cavity size is mildly enlarged, global systolic RV function is normal. 3. The aortic valve is trileaflet and calcified, moderate stenosis and mild regurgitation. The aortic valve peak velocity is 2.9 m/s, the peak gradient is 34 mmHg, and the mean gradient is 19 mmHg. The aortic valve area is 0.95 cm?? with a dimensionless index of 0.29. The stroke volume index is 31.4 ml/m??. 4. The mitral valve is sclerotic, mild mitral regurgitation. 5. Mitral stenosis with mildly increased mean gradient of 3.9 mmHg at a heart rate of 60. 6. Mild-moderate tricuspid regurgitation. 7. Severely enlarged left atrium. 8. Dilated coronary sinus. 9. Severely increased estimated pulmonary pressures by tricuspid regurgitation velocity and right atrial pressure (51 mmHg plus RAP). [facility] Cardiology consult was completed 06/16/2023-euvolemic status, oxygen supplementation necessary to prevent recurrent hospitalizations and exacerbations of CHF. -08/17/2023: Monitor daily weights. Continue with current supportive efforts. Status: Chronic (5) Chronic hypoxic respiratory failure, on home oxygen therapy: Problem details: - discharged on nighttime O2 when discharged from hospital 08/09/2023, not compliant with this at home - 08/17/2023 BNP 2360, previously 7300. - O2 as needed for now and monitor Status: Acute (6) Atrial fibrillation: Problem details: - Rate controlled with Metoprolol, Anticoagulated with warfarin with INR goal of 2-3 - noted to have intermittent bradycardia on telemetry 08/17, this has resolved Status: Chronic (7) Venous stasis ulcers of both lower extremities: Problem details: - Severe - Followed by Navdeep Peña MD - She does wear compression wraps and dressings [facility] - No previous rest pain or claudication - She does use lymphedema pumps daily, double layer compression wraps and leg elevation Status: Acute (8) Aortic stenosis: Problem details: - gradient increasing from 5223-8331 Status: Chronic (9) Obstructive sleep apnea: Problem details: - Moderately severe with apnea-hypopnea index of 55 - Non compliant with CPAP. Likely causing some chronic hypoxia without dyspnea Status: Chronic (10) Parkinson disease: Problem details: - mildly progressive Parkinson's disease, treated with Sinemet - follows with Dr. Scott of Neurology Status: Chronic (11) Physical debility: Problem details: - Continue with PT/OT - Plan to resume home health cares/therapies Status: Chronic (12) Warfarin anticoagulation: Problem details: - Pharmacy to manage, daily INR, goal 2-3 - monitor in setting of antibiotic therapy Status: Chronic (13) Depression: Problem details: - Prozac (bereavement related) Status: Chronic (14) Lymphadenopathy: Problem details: - Incidental finding on 08/16 CT: pre-tracheal lymphadenopathy, multiple prominent bihilar in left prevascular lymph nodes - per formal radiology read: f/u imaging after appropriate therapy to evaluate for interval change as underlying malignancy/metastatic disease not entirely excluded Status: Acute (15) Thoracic vertebral fracture: Problem details: - incidentally noted on admission imaging 08/16, does endorse some pain - added Lidocaine patch and Calcitonin nasal spray 08/17, Calcitonin d/c'd on 08/19 - plan to discharge home on Lidocaine patch + home doses of APAP and Oxycodone Status: Acute Plan - likely back to [facility] tomorrow on Doxycycline - Warfarin for ppx Subjective Date Seen: 08/20/23 Interval history: Carmel was admitted to the hospital on 08/16 for recurrent left lower extremity cellulitis; presented with a fever, WBC of 20, worsening left lower extremity pain. She was started on Vancomycin and Cefepime, blood cultures pending and currently exhibit no growth to date. Notably hospitalized in early July for cellulitis and pneumonia; pneumonia found to be cleared on imaging in the ER upon admission. She continues to have intermittent hypoxia, stable on low dose supplemental oxygen. She is notably noncompliant with oxygen at home. Today, WBC remains normal (>20 on admission). Carmel is feeling closer to baseline and her intermittent confusion has improved. Today is her birthday. Plans to return home to [facility] tomorrow. We had a lengthy discussion regarding repeat hospitalizations, oxygen noncompliance, and goals of care. Exam Narrative: Exam Narrative: GEN: Sitting comfortably in bedside chair, alert HEENT: EOMIs bilaterally, no scleral icterus CV: RRR, harsh systolic murmur at RSB, unchanged R: LCTA bilaterally without concerning wheezing Ext: LEs wrapped with HELLEN wraps and not formally examined today (improving per RN report) Neuro: Resting tremor of tongue and LUE, stable/chronic Psych: Mildly tearful today, otherwise appropriate Const: Vital Signs, click to edit/add: Vital Signs - 24 hr 08/19/23 17:29 08/19/23 17:35 08/19/23 17:38 Temperature 98.1 F Pulse Rate 69 Pulse Rate [Left P ulse Oximeter] 73 Respiratory Rate 24 24 Blood Pressure [Le ft Arm] 182/101 H Pulse Oximetry 91 91 Oxygen Delivery Me thod Room Air Room Air 08/19/23 20:00 08/19/23 20:48 08/20/23 00:11 Temperature 98.1 F 98.0 F Pulse Rate 76 Pulse Rate [Left P ulse Oximeter] 75 66 Respiratory Rate 20 18 Blood Pressure [Le ft Arm] 127/82 157/94 H Pulse Oximetry 91 91 Oxygen Delivery Me thod Room Air Room Air 08/20/23 00:23 08/20/23 00:37 08/20/23 03:00 Temperature 98.0 F Pulse Rate 70 Pulse Rate [Left P ulse Oximeter] 89 Respiratory Rate 18 16 Blood Pressure [Le ft Arm] 127/96 H Pulse Oximetry 91 90 Oxygen Delivery Me thod Room Air Room Air 08/20/23 07:49 08/20/23 08:37 Temperature Pulse Rate 73 Pulse Rate [Left P ulse Oximeter] Respiratory Rate 24 Blood Pressure [Le ft Arm] Pulse Oximetry 91 Oxygen Delivery Md thod Room Air Labs Labs: Laboratory Results - last 24 hr 08/20/23 06:33 WBC 8.72 RBC 3.59 L Hgb 11.2 L Hct 36.1 MCV 101 H MCH 31 MCHC 31 L RDW Coeff of Mandeep 15.0 Plt Count 224 Neut % (Auto) 88.3 H Lymph % (Auto) 2.1 L [place] % (Auto) 6.0 Eos % (Auto) 3.3 Baso % (Auto) 0.2 Neut # (Auto) 7.70 H Lymph # (Auto) 0.20 L [place] # (Auto) 0.50 Eos # (Auto) 0.29 Baso # (Auto) 0.02 Abs Immat Gran (auto) 0.01 Imm/Tot Granulo (auto) 0.1 INR 2.22 H VBG pH 7.382 VBG pCO2 44 VBG pO2 36.4 VBG HCO3 26 Sodium 137 Potassium 4.5 Chloride 105 Carbon Dioxide 24 Anion Gap 8 BUN 34 H Creatinine 0.9 Estimated Creat Clear 29.01 Estimated GFR 62 Glucose 97 Calcium 8.8
[2023-08-20] MEDS: guaiFENesin 100 MG/ML CUP 200 MG PO (13:49)
--- NOTE | 2023-08-20 14:24 | PC.SOCIAL ---
Discharge planning: correction worker met with pt today in her room. correction worker explained that the plan is for her to discharge tomorrow back to [facility]. Pt will still attend her 11:30am appointment [facility] and then the [facility] van will pick her up after that appointment. correction worker coordinated the [facility] van pick-up with Shayla at [facility]. Pt is pleased with this plan. correction worker will check back in with the pt tomorrow morning after rounds. Social work to follow-up as needed.
[2023-08-20] MEDS: WARFARIN 2 MG TABLET 4 MG PO (17:10)
[2023-08-20] MEDS: CEFEPIME HCL 2 GM in 0.9 % SODIUM CHLORIDE Mini-bag 100 ML IVPB (18:57)
--- NOTE | 2023-08-20 20:03 | PC.NURSE ---
End of shift [id number] - Pt alert, oriented, cooperative. Up with standby assistance and walker/gait belt. Incontinent of bladder during shift. Pt reported feeling tired and not sleeping well night prior. Pt observed to be fatigued after PT and after walk to bathroom. RN explained to pt benefit of O2 via nasal cannula for SOB with exertion and fatigue with exertion, pt agreed to wear nasal cannula. Pt denied pain, nausea, vomiting. Pt observed to be teary during shift and requested plan of care meeting with MD regarding her motivation and willingness to continue intensive medical interventions. MD and RN provided emotional support. Pt appears to be resting comfortably in chair at end of shift.
[2023-08-20] MEDS: LOSARTAN POTASSIUM 50 MG TABLET PO (21:24)
[2023-08-20] MEDS: OXYCODONE 5 MG TABLET 2.5 MG PO (21:29)
[2023-08-21 03:50] VITALS: BP 197/97; PULSE 71; RESP 20; TEMP 36.7; O2SAT 90
[2023-08-21 07:00] VITALS: BP 191/104; PULSE 74; RESP 18; TEMP 36.9; O2SAT 93
--- NOTE | 2023-08-21 07:31 | PC.NURSE ---
Addendum entered by Ailyn Astorga 08/21/23 07:38: Pt had high blood pressure readings overnight updated MARCOS Ochoa and colton RN, no new orders, continuing plan of care. Original Note: Pt is alert and oriented x3. Afebrile. Pt reports tolerating 1/10 pain in back and left leg, managed with repositioning and scheduled medication. Pt is up SBA/A1 with walker and gait belt, voiding, and tolerating a regular diet. Pt had x2 soaked briefs overnight.
[2023-08-21] MEDS: POTASSIUM CHLORIDE 10 MEQ CAPSULE ER 40 MEQ PO (09:00)
[2023-08-21] MEDS: ACETAMINOPHEN 325 MG TABLET 975 MG PO (09:00)
[2023-08-21] MEDS: FLUOXETINE HCL 10 MG CAPSULE 30 MG PO (09:00)
[2023-08-21] MEDS: CARBIDOPA-LEVODOPA 25-100 TABLET 1 TAB PO (09:01)
[2023-08-21] MEDS: FUROSEMIDE 20 MG TABLET 60 MG PO (09:01)
[2023-08-21] MEDS: LOSARTAN POTASSIUM 50 MG TABLET PO (09:01)
[2023-08-21] MEDS: METOPROLOL TARTRATE 25 MG TABLET PO (09:01)
[2023-08-21] MEDS: guaiFENesin 600 MG TAB.ER.12H PO (09:01)
[2023-08-21] MEDS: SODIUM CHLORIDE 0.9 % (FLUSH) 10 ML SYRINGE 5 ML IVF (09:01)
--- NOTE | 2023-08-21 09:06 | PM.DS1 ---
DS: Providers Provider Date Seen: 08/21/23 Date of admission: 08/17/23 19:38 Primary care physician: Sofia Guerrero MD Admitting Clinician: Mello Luna MD Consults: 08/17/23 19:38 Consult to Administrative Operations Coordinator [CONS] Routine Comment: Reason for Consult:: Discharge Planning Needs 08/19/23 08:21 Consult to Occupational Therapy [CONS] Routine Comment: Reason(s) for OT Consult:: ADLs Prior to Discharge Any Restrictions?:: Wt Bearing as Tolerated Consult to Physical Therapy [CONS] Routine Comment: Reason(s) for PT Consult:: Evaluate and Treat Any Restrictions?:: No Restrictions Attending Physician on discharge: RASHEL Bolaños, [facility]C [facility] Date [facility] Discharge: 08/21/23 DS: Diagnosis Discharge Diagnosis (1) Recurrent cellulitis of lower leg: Status: Acute Problem details: - Previously hospitalized 08/04-08/09/23 for LLE cellulitis, treated with Zosyn (+ azithromycin for pneumonia), then completed full course of outpatient oral Augmentin - Recurrence noted 08/17/23 with fever up to 101.2 ? fever, chills, pain in LLE - BC obtained, NGTD on 08/18 - Started on cefepime plus vancomycin 08/17/23, Vancomycin discontinued on 08/18 given negative cultures, negative MRSA swab, clinical improvement - discharged on oral Doxycycline to complete a 7 day course Outpatient follow-up with PCP for resolution. (2) Pulmonary hypertension: Status: Chronic Problem details: - noted on TTE 06/23 with pulmonary artery pressure 51mmHG+RAP with moderate tricuspid valve regurgitation - CT 08/05/23 and 08/17/23 exhibit mild bibasilar interlobular septal thickening likely representing superimposed mild pulmonary edema (3) Confusion: Status: Acute Problem details: - intermittent since admission - ddx: Hospital delirium, infection, CO2 retention, mild cognitive impairment in the setting of known Parkinson disease, iatrogenic, h/o depression, suspect anxiety - noted primarily when seated so I do not think (known moderate disease) contributing; consider repeat TTE with any significant change in status - we have discontinued her gabapentin, limiting oxycodone administration, following VBGs - therapies following On day of discharge, patient alert and oriented during my exam. Less than 1 hour later appears confused and complains of blurred vision with OT and nursing staff. When I go back to see her, she tells me of course I remember you. When testing vision for blurriness, unfounded. Able to read at a distance and a close up without blurring and tells me that images/words appear clear. Remembers she has a wound care visit at 11 and will then discharge to [facility]. CT head obtained and shows involutional changes. No acute-appearing findings. Radiology staff report patient was hyperventilating in room but did not vomit. This has since resolved. No longer nauseous. Breathing normally. Confusion has resolved. (4) Diastolic heart failure with preserved ejection fraction: Status: Chronic Problem details: - chronic, NYHA class 3. weight goal: 97 kg - ECHO during previous admission 06/2023 demonstrates worsening degree of , enlarging left atrium, moderate TR, severely increased pulmonary hypertension. These changes are new when compared to an echocardiogram in 2022. Final Impressions: 1. Normal LV size, moderately increased wall thickness, normal global systolic function with an estimated EF of 60 - 65%. 2. Right ventricular cavity size is mildly enlarged, global systolic RV function is normal. 3. The aortic valve is trileaflet and calcified, moderate stenosis and mild regurgitation. The aortic valve peak velocity is 2.9 m/s, the peak gradient is 34 mmHg, and the mean gradient is 19 mmHg. The aortic valve area is 0.95 cm?? with a dimensionless index of 0.29. The stroke volume index is 31.4 ml/m??. 4. The mitral valve is sclerotic, mild mitral regurgitation. 5. Mitral stenosis with mildly increased mean gradient of 3.9 mmHg at a heart rate of 60. 6. Mild-moderate tricuspid regurgitation. 7. Severely enlarged left atrium. 8. Dilated coronary sinus. 9. Severely increased estimated pulmonary pressures by tricuspid regurgitation velocity and right atrial pressure (51 mmHg plus RAP). [facility] consult was completed 06/16/2023-euvolemic status, oxygen supplementation necessary to prevent recurrent hospitalizations and exacerbations of CHF. (5) Chronic hypoxic respiratory failure, on home oxygen therapy: Status: Acute Problem details: - discharged on nighttime O2 when discharged from hospital 08/09/2023, not compliant with this at home 08/17/2023 BNP 2360, previously 7300. Weaned from O2 during the day. Encouraged to be compliant with home oxygen at night discussing overall benefits. (6) Atrial fibrillation: Status: Chronic Problem details: - Rate controlled with Metoprolol, Anticoagulated with warfarin with INR goal of 2-3 - noted to have intermittent bradycardia on telemetry 08/17, this has resolved (7) Venous stasis ulcers of both lower extremities: Status: Acute Problem details: - Severe - Followed by Navdeep Peña MD - She does wear compression wraps and dressings per [facility] - No previous rest pain or claudication - She does use lymphedema pumps daily, double layer compression wraps and leg elevation (8) Aortic stenosis: Status: Chronic Problem details: - gradient increasing from 8466-2560 (9) Obstructive sleep apnea: Status: Chronic Problem details: - Moderately severe with apnea-hypopnea index of 55 - Non compliant with CPAP. Likely causing some chronic hypoxia without dyspnea (10) Parkinson disease: Status: Chronic Problem details: - mildly progressive Parkinson's disease, treated with Sinemet - follows with Dr. Scott of Neurology (11) Physical debility: Status: Chronic Problem details: - Continue with PT/OT RESUME HOME HEALTH CARES, SENIOR LIVING, WOUND CARES, PT, OT UPON RETURN TO [facility] (12) Warfarin anticoagulation: Status: Chronic Problem details: - Pharmacy to manage, daily INR, goal 2-3 - monitor in setting of antibiotic therapy (13) Depression: Status: Chronic Problem details: - Prozac (bereavement related). Suspect anxiety with this. May be complicating episodic confusion. (14) Lymphadenopathy: Status: Acute Problem details: - Incidental finding on 08/16 CT: pre-tracheal lymphadenopathy, multiple prominent bihilar in left prevascular lymph nodes - per formal radiology read: f/u imaging after appropriate therapy to evaluate for interval change as underlying malignancy/metastatic disease not entirely excluded (15) Thoracic vertebral fracture: Status: Acute Problem details: - incidentally noted on admission imaging 08/16, does endorse some pain - added Lidocaine patch and Calcitonin nasal spray 08/17, Calcitonin d/c'd on 08/19 - plan to discharge home on Lidocaine patch + home doses of APAP and Oxycodone DS: Summary Hospital Course Hospital Course: [age] year old female with significant past medical history was admitted to the medical floor for recurring lower extremity cellulitis. Course of care and details as noted above. Cellulitis initially managed with IV antibiotics, IVF, transitioned to oral doxycycline on discharge. Negative cultures. Negative MRSA swab. Fevers resolved. Continued with wound cares, discharging to wound care clinic visit on day of discharge 08/20. Continued management of chronic medical comorbidities. Therapies were consulted. Patient will resume home health cares, halfway cares, wound cares, PT, OT upon returning to [facility]. Incidental finding of thoracic vertebral fracture managed with lidocaine patch and Tylenol. Incidental finding of lymphadenopathy. Recommend further evaluation and follow-up imaging with PCP for interval change. Encourage compliance with home oxygen, discussing benefits, risks for worsening chronic disease. Intermittent episodes of confusion. Differentials included Hospital delirium, infection, CO2 retention, mild cognitive impairment in the setting of known Parkinson disease, iatrogenic, depression/anxiety, narcotic use. Noted primarily when seated so not thought to be (known moderate disease) contributing. Gabapentin was discontinued. Limited oxycodone. CT head without acute findings. Consider repeat TTE if necessary. Close follow-up with PCP. Remainder of chronic medical comorbidities were monitored and managed with home medications. Status at Discharge Overall status at discharge: patient is back to baseline Time Spent with Patient Time attestation: Total time spent providing and/or coordinating discharge services: Time spent: Greater than 30 minutes Exam Narrative: Exam Narrative: PHYSICAL EXAM General: Pleasant, conversant, NAD Cardiovascular: RRR Pulmonary: No dyspnea Neurological: Alert, oriented, answering questions appropriately without confusion or blurred vision Skin: Warm, dry. Const: Vital Signs, click to edit/add: Vital Signs - 24 hr 08/20/23 15:59 08/20/23 16:01 08/20/23 16:08 Temperature Pulse Rate 84 Pulse Rate [Apical ] Pulse Rate [Left P ulse Oximeter] 76 Respiratory Rate 24 24 Blood Pressure [Le ft Arm] 176/105 H Pulse Oximetry 94 91 Oxygen Delivery Me thod Nasal Cannula Room Air Oxygen Flow Rate 0.5 08/20/23 20:10 08/20/23 21:15 08/20/23 21:15 Temperature 98.3 F Pulse Rate 67 Pulse Rate [Apical ] Pulse Rate [Left P ulse Oximeter] 91 91 Respiratory Rate 20 20 Blood Pressure [Le ft Arm] 191/93 H Pulse Oximetry 91 Oxygen Delivery Me thod Room Air Oxygen Flow Rate 08/20/23 21:15 08/20/23 23:35 08/21/23 03:50 Temperature 97.9 F 98.0 F Pulse Rate Pulse Rate [Apical ] 86 Pulse Rate [Left P ulse Oximeter] 86 71 Respiratory Rate 20 20 Blood Pressure [Le ft Arm] 194/99 H 197/97 H Pulse Oximetry 95 92 90 Oxygen Delivery Me thod Room Air Room Air Room Air Oxygen Flow Rate DS: Data Data Completed and Pending Completed studies during hospitalization: Procedures Introduction of Other Gas into Respiratory Tract, Via Natural or Artificial Opening (05/18/23) Labs on day of discharge: Preliminary micro results at discharge 08/17/23 16:22 Blood Culture - Preliminary Blood NO GROWTH AFTER 72 HOURS 08/17/23 16:12 Blood Culture - Preliminary Blood NO GROWTH AFTER [address] scan - head: Attestation: I have reviewed the pertinent imaging results. Radiologist's impression: CT examination of the head was performed as axial sections without intravenous contrast. Images were obtained from the vertex of the skull through the skull base. Please note that all CT scans at this facility use dose modulation, iterative reconstruction, and/or weight-based dosing when appropriate to reduce radiation dose to as low as reasonably achievable. FINDINGS: The brain shows no sign of mass lesion, mass effect, hemorrhage, or edema. There are involutional changes. There is moderate cortical atrophy and there is moderate to severe white matter disease. There is no hydrocephalus. The visualized portions of the orbits are normal in appearance. The osseous structures are normal in appearance with no sign of abnormality in the skull base or calvarium. IMPRESSION: Involutional changes. No acute-appearing findings. CT scan - chest: Attestation: I have reviewed the pertinent imaging results. Radiologist's impression: CT chest without contrast. COMPARISON: CT PE chest 08/05/2023. FINDINGS: Lungs and pleura: Decreased patchy ground-glass opacities in the right upper lobe, with a few residual ground-glass opacities. Interval resolution of interstitial edema. No new acute infiltrates. Lingular and bibasilar atelectasis. Trace right pleural effusion, unchanged. No pneumothorax. Minimal centrilobular emphysema. Heart and vasculature: Stable cardiomegaly with biatrial enlargement. Thoracic aorta and pulmonary artery are normal in caliber. Coronary artery calcifications. Lymph nodes/mediastinum: Decreased size of mediastinal and hilar lymph nodes, likely reactive. Stable thyroid gland. Chest wall: No masses. Upper abdomen: No acute findings. Bones: Degenerative changes. Exaggerated thoracic kyphosis. Flowing syndesmophytes, nonspecific but may be seen in the setting of ankylosing spondylitis. Acute nondisplaced fracture of the T10-T11 anterior bridging osteophyte with fracture plane extending into the T11 vertebral body. IMPRESSION: 1. Near-complete resolution of right upper lobe infectious/inflammatory process, with a few residual ground-glass opacities. 2. No new acute infiltrates. 3. Acute nondisplaced fracture of the T10-T11 anterior bridging osteophyte with fracture plane extending into the T11 vertebral body. Discharge Plan Discharge Disposition: Home, Self-Care Date of Admission: 08/17/23 19:38 Attending Provider on Discharge: Gabriela Colindres Primary Care Provider: Sofia Guerrero Condition: Improved Anticipated Discharge Date/Time: 08/21/23 09:07 Discharge Medications: New lidocaine 5 % Adhesive Patch,Medicated 1 patch transdermal Q24H Qty: 30 0RF doxycycline monohydrate 100 mg capsule 100 mg PO BID 7 Days Qty: 14 0RF Continued carbidopa-levodopa 25-100 mg tablet 1 tab PO TID metoprolol tartrate 25 mg Tablet 25 mg PO BID Qty: 60 0RF acetaminophen 325 mg tablet 975 mg PO TID bisacodyl [Dulcolax (bisacodyl)] 10 mg suppository 10 mg VT DAILY PRN alum-mag hydroxide-simeth [Advanced Antacid-Antigas] 200-200-20 mg/5 mL suspension 30 ml PO QID PRN loperamide [Imodium A-D] 2 mg tablet 2 mg PO PRN PRN Rx Instructions: up to 6 tabs per day magnesium hydroxide [Milk of Magnesia] 400 mg/5 mL suspension 30 ml PO Q48H PRN warfarin 4 mg tablet 4 mg PO TUTH Rx Instructions: 4 MG , warfarin 3 mg tablet 3 mg PO 5XW Rx Instructions: 3 MG MON,WE,FR,SA,MARTINEZ fluoxetine 10 mg capsule 30 mg PO DAILY furosemide 20 mg tablet 60 mg PO DAILY losartan 50 mg Tablet 50 mg PO BID Qty: 60 0RF guaifenesin [Mucus Relief ER] 600 mg tablet extended release 12hr 600 mg PO BID potassium chloride 10 mEq tablet,ER particles/crystals 30 meq PO DAILY Discontinued gabapentin 100 mg capsule 100 mg PO TID Discharge Orders: Discharge Order (Routine); Ordered 08/21/23 Ordered By: Gabriela Colindres Patient Education: Doxycycline (By mouth), Lidocaine (On the skin), Cellulitis (GEN) Additional Instructions: Stop Gabapentin for pain. Add Lidocaine patch on back as needed. 7 more days of Doxycycline. No other changes to home medications. See Dr. Guerrero in followup to discuss further goals of care. RESUMPTION OF HOME CARES, SENIOR LIVING CARES, WOUND CARES, PT, OT PLEASE Activity Level: Activity as Tolerated Discharge Diet: Heart Healthy (2 gm sodium, low fat) Follow Up Appointments: Sofia Guerrero MD [Primary Care Provider] - 08/28/23 12:45 pm ([facility] for post hospital follow-up.) Forms: go2 media Info Instructions
--- NOTE | 2023-08-21 09:24 | CRLHL7_ITS ---
For Patients: As a result of the Century Cures Act, medical imaging exams and procedure reports are released immediately into your electronic medical record. You may view this report before your referring provider. If you have questions, please contact your health care provider. INDICATION: Confusion COMPARISON: None TECHNIQUE: CT examination of the head was performed as axial sections without intravenous contrast. Images were obtained from the vertex of the skull through the skull base. Please note that all CT scans at this facility use dose modulation, iterative reconstruction, and/or weight-based dosing when appropriate to reduce radiation dose to as low as reasonably achievable. FINDINGS: The brain shows no sign of mass lesion, mass effect, hemorrhage, or edema. There are involutional changes. There is moderate cortical atrophy and there is moderate to severe white matter disease. There is no hydrocephalus. The visualized portions of the orbits are normal in appearance. The osseous structures are normal in appearance with no sign of abnormality in the skull base or calvarium. IMPRESSION: Involutional changes. No acute-appearing findings. Please note that all CT scans at this facility use dose modulation, iterative reconstruction, and/or weight-based dosing when appropriate to reduce radiation dose to as low as reasonably achievable. Dictated by Luis Coffey MD @ 08/21/2023 11:10:58 AM (Electronically Signed)
--- NOTE | 2023-08-21 09:43 | REH.OT ---
OT: Patient reporting feels confused, patient had some difficulty with slowed response time and inaccuracy with orientation questions. Initiated [place] again and patient reports off and not thinking clearly, unable to complete, she was fixated on talking about room 1222 and she could not explain why. Patient also c/o blurred vision, rubbing forehead, but not c/o headache pain. BP 198/98, O2 sats 94% on RA, HR 77bpm. Nsg informed and assessing patient.
--- NOTE | 2023-08-21 10:08 | PC.SOCIAL ---
Addendum entered by CR Soliman 08/21/23 12:18: Discharge planning: driver utility worker asked the provider to write resumption of care orders for [facility]; [facility] for wound care, PT and OT. Provider will list the resumption orders in the discharge summary. Social work to follow-up as needed. Original Note: Discharge planning: driver utility worker met with pt today and provided her with The Important Message from Medicare form and explained the hospital discharge appeal process. Pt said she was fine with going home today, but that she didn't feel good. Pt is getting a head CT this morning per the provider on duty. Social work to follow-up as needed.
[2023-08-21] MEDS: LIDOCAINE 5% PATCH 1 PATCH TRANSDERMA (11:09)
--- NOTE | 2023-08-21 11:41 | PC.NURSE ---
Discharge: Patient pleasant and cooperative, A&O. VSS, afebrile. Patient was slightly confused this morning, and complaining of blurry vision, MD notified, CT of head completed. Discharge instructions provided, all questions answered. IV removed with tip intact.
== END 2023-08-21 11:35 | disposition home or self-care (01) | DRG 603 ==
LOC: ED 18:25 → MEDSURG 18:52
PROVIDERS: Family Medicine; Admitting Provider Internal Medicine; Emergency Provider Family Medicine; PCP Family Medicine; Visit Provider Internal Medicine
DX: L03.116 Cellulitis of left lower limb (principal); I48.20 Chronic atrial fibrillation, unspecified; I50.32 Chronic diastolic (congestive) heart failure; L97.829 Non-pressure chronic ulcer of other part of left lower leg with unspecified severity; L97.819 Non-pressure chronic ulcer of other part of right lower leg with unspecified severity; S22.009A Unspecified fracture of unspecified thoracic vertebra, initial encounter for closed fracture; Z68.41 Body mass index [BMI] 40.0-44.9, adult; I11.0 Hypertensive heart disease with heart failure; I08.3 Combined rheumatic disorders of mitral, aortic and tricuspid valves; G20.A1 Parkinson's disease without dyskinesia, without mention of fluctuations; Z79.01 Long term (current) use of anticoagulants; I27.20 Pulmonary hypertension, unspecified; G47.33 Obstructive sleep apnea (adult) (pediatric); E66.01 Morbid (severe) obesity due to excess calories; I89.0 Lymphedema, not elsewhere classified; Z99.81 Dependence on supplemental oxygen; F32.A Depression, unspecified; I95.9 Hypotension, unspecified; R00.1 Bradycardia, unspecified; I87.2 Venous insufficiency (chronic) (peripheral); R59.0 Localized enlarged lymph nodes; R41.0 Disorientation, unspecified
CPT/HCPCS: 36415; 70450; 71250; 80048; 80053; 81001; 82803; 83605; 83735; 83880; 84100; 84145; 85025; 85027; 85610; 86140; 87040; 87081; 87631; 93005; 94761; 97110; 97116; 97162; 97165; 97530; 97535; 97597; 99284; 99285; A9270; J0692; J2060; J2270; J3370; J7030; J7050

== ENCOUNTER 2023-08-21 11:38 | Outpatient (CLI) | payer MEDICARE, BC, SELFPAY | END 2023-08-21 11:39 | disposition home or self-care (01) | LOC: WOUND 11:38 | PROVIDERS: PCP Family Medicine; Visit Provider Physician Assistant | DX: I73.9 Peripheral vascular disease, unspecified (principal); I87.312 Chronic venous hypertension (idiopathic) with ulcer of left lower extremity; L97.821 Non-pressure chronic ulcer of other part of left lower leg limited to breakdown of skin; I89.0 Lymphedema, not elsewhere classified | CPT/HCPCS: 97597 ==

== ENCOUNTER 2023-08-28 11:34 | Outpatient (CLI) | payer MEDICARE, BC, SELFPAY | END 2023-08-28 11:35 | disposition home or self-care (01) | LOC: WOUND 11:34 | PROVIDERS: PCP Family Medicine; Visit Provider Nurse Practitioner Family | DX: I87.312 Chronic venous hypertension (idiopathic) with ulcer of left lower extremity (principal); I73.9 Peripheral vascular disease, unspecified; I89.0 Lymphedema, not elsewhere classified; L97.822 Non-pressure chronic ulcer of other part of left lower leg with fat layer exposed | CPT/HCPCS: G0463 ==

== ENCOUNTER 2023-09-11 11:17 | Outpatient (CLI) | payer MEDICARE, BC, SELFPAY | END 2023-09-11 11:18 | disposition home or self-care (01) | LOC: WOUND 11:17 | PROVIDERS: PCP Family Medicine; Visit Provider Nurse Practitioner Family | DX: I87.313 Chronic venous hypertension (idiopathic) with ulcer of bilateral lower extremity (principal); L97.818 Non-pressure chronic ulcer of other part of right lower leg with other specified severity; L97.828 Non-pressure chronic ulcer of other part of left lower leg with other specified severity; I73.9 Peripheral vascular disease, unspecified; I89.0 Lymphedema, not elsewhere classified | CPT/HCPCS: G0463 ==

== ENCOUNTER 2023-10-09 11:20 | Outpatient (CLI) | payer MEDICARE, BC, SELFPAY | END 2023-10-09 11:21 | disposition home or self-care (01) | LOC: WOUND 11:20 | PROVIDERS: PCP Family Medicine; Visit Provider Nurse Practitioner Family | DX: I87.312 Chronic venous hypertension (idiopathic) with ulcer of left lower extremity (principal); I73.9 Peripheral vascular disease, unspecified; I89.0 Lymphedema, not elsewhere classified; L97.822 Non-pressure chronic ulcer of other part of left lower leg with fat layer exposed | CPT/HCPCS: 97597; 97598 ==

== ENCOUNTER 2023-10-16 11:19 | Outpatient (CLI) | payer MEDICARE, BC, SELFPAY | END 2023-10-16 11:20 | disposition home or self-care (01) | LOC: WOUND 11:19 | PROVIDERS: PCP Family Medicine; Visit Provider Nurse Practitioner Family | DX: I87.312 Chronic venous hypertension (idiopathic) with ulcer of left lower extremity (principal); I73.9 Peripheral vascular disease, unspecified; I89.0 Lymphedema, not elsewhere classified; L97.822 Non-pressure chronic ulcer of other part of left lower leg with fat layer exposed | CPT/HCPCS: 97597 ==

== ENCOUNTER 2023-10-23 11:38 | Outpatient (CLI) | payer MEDICARE, BC, SELFPAY | END 2023-10-23 11:39 | disposition home or self-care (01) | LOC: WOUND 11:38 | PROVIDERS: PCP Family Medicine; Visit Provider Nurse Practitioner Family | DX: I87.312 Chronic venous hypertension (idiopathic) with ulcer of left lower extremity (principal); I73.9 Peripheral vascular disease, unspecified; I89.0 Lymphedema, not elsewhere classified; L97.822 Non-pressure chronic ulcer of other part of left lower leg with fat layer exposed | CPT/HCPCS: 97597 ==

== ENCOUNTER 2023-10-30 11:28 | Outpatient (CLI) | payer MEDICARE, BC, SELFPAY | END 2023-10-30 11:29 | disposition home or self-care (01) | LOC: WOUND 11:28 | PROVIDERS: PCP Family Medicine; Visit Provider Nurse Practitioner Family | DX: I87.312 Chronic venous hypertension (idiopathic) with ulcer of left lower extremity (principal); I73.9 Peripheral vascular disease, unspecified; I89.0 Lymphedema, not elsewhere classified; L97.822 Non-pressure chronic ulcer of other part of left lower leg with fat layer exposed | CPT/HCPCS: 97597; 97598 ==

== ENCOUNTER 2023-11-06 11:12 | Outpatient (CLI) | payer MEDICARE, BC, SELFPAY | END 2023-11-06 11:13 | disposition home or self-care (01) | LOC: WOUND 11:12 | PROVIDERS: PCP Family Medicine; Visit Provider Nurse Practitioner Family | DX: I87.312 Chronic venous hypertension (idiopathic) with ulcer of left lower extremity (principal); I89.0 Lymphedema, not elsewhere classified; L97.822 Non-pressure chronic ulcer of other part of left lower leg with fat layer exposed | CPT/HCPCS: 97597; 97598 ==

== ENCOUNTER 2023-11-13 11:23 | Outpatient (CLI) | payer MEDICARE, BC, SELFPAY | END 2023-11-13 11:24 | disposition home or self-care (01) | LOC: WOUND 11:23 | PROVIDERS: PCP Family Medicine; Visit Provider Nurse Practitioner Family | DX: I73.9 Peripheral vascular disease, unspecified (principal); I89.0 Lymphedema, not elsewhere classified; I87.312 Chronic venous hypertension (idiopathic) with ulcer of left lower extremity; L97.822 Non-pressure chronic ulcer of other part of left lower leg with fat layer exposed | CPT/HCPCS: 97597; 97598 ==

== ENCOUNTER 2023-11-20 11:20 | Outpatient (CLI) | payer MEDICARE, BC, SELFPAY | END 2023-11-20 11:21 | disposition home or self-care (01) | LOC: WOUND 11:20 | PROVIDERS: PCP Family Medicine; Visit Provider Nurse Practitioner Family | DX: I87.312 Chronic venous hypertension (idiopathic) with ulcer of left lower extremity (principal); I73.9 Peripheral vascular disease, unspecified; I89.0 Lymphedema, not elsewhere classified; L97.822 Non-pressure chronic ulcer of other part of left lower leg with fat layer exposed | CPT/HCPCS: 97597; 97598 ==

== ENCOUNTER 2023-11-27 11:57 | Outpatient (CLI) | payer MEDICARE, BC, SELFPAY | END 2023-11-27 11:58 | disposition home or self-care (01) | LOC: WOUND 11:57 | PROVIDERS: PCP Family Medicine; Visit Provider Nurse Practitioner Family | DX: I87.312 Chronic venous hypertension (idiopathic) with ulcer of left lower extremity (principal); I89.0 Lymphedema, not elsewhere classified; I73.9 Peripheral vascular disease, unspecified; L97.822 Non-pressure chronic ulcer of other part of left lower leg with fat layer exposed | CPT/HCPCS: 97597; 97598 ==

== ENCOUNTER 2023-12-04 11:08 | Outpatient (CLI) | payer MEDICARE, BC, SELFPAY | END 2023-12-04 11:09 | disposition home or self-care (01) | LOC: WOUND 11:08 | PROVIDERS: PCP Family Medicine; Visit Provider Nurse Practitioner Family | DX: I87.312 Chronic venous hypertension (idiopathic) with ulcer of left lower extremity (principal); I73.9 Peripheral vascular disease, unspecified; I89.0 Lymphedema, not elsewhere classified; L97.822 Non-pressure chronic ulcer of other part of left lower leg with fat layer exposed | CPT/HCPCS: 97597; 97598 ==

== ENCOUNTER 2023-12-18 11:06 | Outpatient (CLI) | payer MEDICARE, BC, SELFPAY | END 2023-12-18 11:07 | disposition home or self-care (01) | LOC: WOUND 11:07 | PROVIDERS: PCP Family Medicine; Visit Provider Family Medicine | DX: I87.312 Chronic venous hypertension (idiopathic) with ulcer of left lower extremity (principal); I73.9 Peripheral vascular disease, unspecified; I89.0 Lymphedema, not elsewhere classified; L97.822 Non-pressure chronic ulcer of other part of left lower leg with fat layer exposed | CPT/HCPCS: 11042; 11045 ==

== ENCOUNTER 2024-01-01 11:09 | Outpatient (CLI) | payer MEDICARE, BC, SELFPAY | END 2024-01-01 11:10 | disposition home or self-care (01) | LOC: WOUND 11:09 | PROVIDERS: PCP Family Medicine; Visit Provider Nurse Practitioner Family | DX: I87.312 Chronic venous hypertension (idiopathic) with ulcer of left lower extremity (principal); I73.9 Peripheral vascular disease, unspecified; I89.0 Lymphedema, not elsewhere classified; L97.822 Non-pressure chronic ulcer of other part of left lower leg with fat layer exposed | CPT/HCPCS: 11042; 11045 ==

== ENCOUNTER 2024-01-15 11:05 | Outpatient (CLI) | payer MEDICARE, BC, SELFPAY | END 2024-01-15 11:06 | disposition home or self-care (01) | LOC: WOUND 11:05 | PROVIDERS: PCP Family Medicine; Visit Provider Nurse Practitioner Family | DX: I87.312 Chronic venous hypertension (idiopathic) with ulcer of left lower extremity (principal); I89.0 Lymphedema, not elsewhere classified; L97.822 Non-pressure chronic ulcer of other part of left lower leg with fat layer exposed | CPT/HCPCS: 97597; 97598 ==

== ENCOUNTER 2024-01-29 11:17 | Outpatient (CLI) | payer MEDICARE, BC, SELFPAY | END 2024-01-29 11:18 | disposition home or self-care (01) | LOC: WOUND 11:17 | PROVIDERS: PCP Family Medicine; Visit Provider Physician Assistant | DX: I87.312 Chronic venous hypertension (idiopathic) with ulcer of left lower extremity (principal); I73.9 Peripheral vascular disease, unspecified; I89.0 Lymphedema, not elsewhere classified; L97.822 Non-pressure chronic ulcer of other part of left lower leg with fat layer exposed | CPT/HCPCS: 97597; 97598 ==

== ENCOUNTER 2024-02-12 11:08 | Outpatient (CLI) | payer MEDICARE, BC, SELFPAY | END 2024-02-12 11:09 | disposition home or self-care (01) | LOC: WOUND 11:08 | PROVIDERS: PCP Family Medicine; Visit Provider Nurse Practitioner Family | DX: I87.312 Chronic venous hypertension (idiopathic) with ulcer of left lower extremity (principal); I89.0 Lymphedema, not elsewhere classified; I73.9 Peripheral vascular disease, unspecified; L97.822 Non-pressure chronic ulcer of other part of left lower leg with fat layer exposed | CPT/HCPCS: 11042; 11045 ==

== ENCOUNTER 2024-02-26 11:12 | Outpatient (CLI) | payer MEDICARE, BC, SELFPAY | END 2024-02-26 11:13 | disposition home or self-care (01) | LOC: WOUND 11:12 | PROVIDERS: PCP Family Medicine; Visit Provider Nurse Practitioner Family | DX: I87.312 Chronic venous hypertension (idiopathic) with ulcer of left lower extremity (principal); I89.0 Lymphedema, not elsewhere classified; I73.9 Peripheral vascular disease, unspecified; L97.822 Non-pressure chronic ulcer of other part of left lower leg with fat layer exposed | CPT/HCPCS: 11042; 11045 ==

== ENCOUNTER 2024-03-11 11:05 | Outpatient (CLI) | payer MEDICARE, BC, SELFPAY | END 2024-03-11 11:06 | disposition home or self-care (01) | LOC: WOUND 11:06 | PROVIDERS: PCP Family Medicine; Visit Provider Nurse Practitioner Family | DX: I87.312 Chronic venous hypertension (idiopathic) with ulcer of left lower extremity (principal); I89.0 Lymphedema, not elsewhere classified; I73.9 Peripheral vascular disease, unspecified; L97.822 Non-pressure chronic ulcer of other part of left lower leg with fat layer exposed | CPT/HCPCS: 97597; 97598 ==

== ENCOUNTER 2024-03-25 11:16 | Outpatient (CLI) | payer MEDICARE, BC, SELFPAY | END 2024-03-25 11:17 | disposition home or self-care (01) | LOC: WOUND 11:17 | PROVIDERS: PCP Family Medicine; Visit Provider Nurse Practitioner Family | DX: I87.312 Chronic venous hypertension (idiopathic) with ulcer of left lower extremity (principal); I73.9 Peripheral vascular disease, unspecified; I89.0 Lymphedema, not elsewhere classified; L97.822 Non-pressure chronic ulcer of other part of left lower leg with fat layer exposed | CPT/HCPCS: 11042; 11045 ==

== ENCOUNTER 2024-04-08 11:14 | Outpatient (CLI) | payer MEDICARE, BC, SELFPAY | END 2024-04-08 11:15 | disposition home or self-care (01) | LOC: WOUND 11:14 | PROVIDERS: PCP Family Medicine; Visit Provider Physician Assistant Surgical | DX: I87.312 Chronic venous hypertension (idiopathic) with ulcer of left lower extremity (principal); I89.0 Lymphedema, not elsewhere classified; L97.822 Non-pressure chronic ulcer of other part of left lower leg with fat layer exposed | CPT/HCPCS: 11042; 11045 ==

== ENCOUNTER 2024-04-22 11:22 | Outpatient (CLI) | payer MEDICARE, BC, SELFPAY | END 2024-04-22 11:23 | disposition home or self-care (01) | LOC: WOUND 11:22 | PROVIDERS: PCP Family Medicine; Visit Provider Nurse Practitioner Family | DX: I87.312 Chronic venous hypertension (idiopathic) with ulcer of left lower extremity (principal); I89.0 Lymphedema, not elsewhere classified; I73.9 Peripheral vascular disease, unspecified; L97.822 Non-pressure chronic ulcer of other part of left lower leg with fat layer exposed | CPT/HCPCS: 97597; 97598 ==

== ENCOUNTER 2024-05-06 11:10 | Outpatient (CLI) | payer MEDICARE, BC, SELFPAY | END 2024-05-06 11:11 | disposition home or self-care (01) | LOC: WOUND 11:12 | PROVIDERS: PCP Family Medicine; Visit Provider Nurse Practitioner Family | DX: I87.312 Chronic venous hypertension (idiopathic) with ulcer of left lower extremity (principal); I73.9 Peripheral vascular disease, unspecified; I89.0 Lymphedema, not elsewhere classified; L97.822 Non-pressure chronic ulcer of other part of left lower leg with fat layer exposed | CPT/HCPCS: 97597 ==

== ENCOUNTER 2024-05-20 11:13 | Outpatient (CLI) | payer MEDICARE, BC, SELFPAY | END 2024-05-20 11:14 | disposition home or self-care (01) | LOC: WOUND 11:14 | PROVIDERS: PCP Family Medicine; Visit Provider Nurse Practitioner Family | DX: I87.312 Chronic venous hypertension (idiopathic) with ulcer of left lower extremity (principal); I73.9 Peripheral vascular disease, unspecified; I89.0 Lymphedema, not elsewhere classified; L97.822 Non-pressure chronic ulcer of other part of left lower leg with fat layer exposed | CPT/HCPCS: 97597 ==

== ENCOUNTER 2024-05-27 14:14 | Outpatient (CLI) | payer MEDICARE, BC, SELFPAY | END 2024-05-27 14:15 | disposition home or self-care (01) | LOC: AMB 05-30 09:14 | PROVIDERS: PCP Family Medicine; Visit Provider Family Medicine | DX: M79.606 Pain in leg, unspecified (principal); R53.1 Weakness | CPT/HCPCS: A0425; A0429 ==

== ENCOUNTER 2024-05-27 14:49 | Inpatient (IN) | payer MEDICARE, BC, SELFPAY ==
[2024-05-27] VITALS (14 sets, daily range): BP systolic 99–157; BP diastolic 67–90; PULSE 63–99; RESP 14–28; TEMP 36.1–36.9; O2SAT 89–96; BMI 42.2; BMI 41.9
--- OUTSIDE RECORDS SUMMARY | 2024-05-27 14:34 | XMS_ITS | Clinical Summary ---
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 90 Capsule 1 3 Active losartan (COZAAR) 100 mg tabletIndications :Essential hypertension Take 1 Tablet (100 mg) by mouth once daily. 90 Tablet 1 3 Active amLODIPine (NORVASC) 5 mg tabletIndications :Essential hypertension Take 1 Tablet (5 mg) by mouth once daily. 90 Tablet 1 3 Active furosemide (LASIX) 40 mg tabletIndications :Essential hypertension Take 1 Tablet (40 mg) by mouth every morning. 90 Tablet 1 3 Active carbidopa-levodop a, 25-100 mg, (SINEMET 25-100) 25-100 mg tabletIndications :Parkinson's disease (HC) Take 1 Tablet by mouth three times daily. 180 Tablet 3 Active gabapentin (NEURONTIN) 100 mg capsule Take 100 mg by mouth three times daily. Active gabapentin (NEURONTIN) 100 mg capsule Take 100 mg by mouth once daily if needed (pain). Active warfarin (COUMADIN) 5 mg tabletIndications :Anticoagulation monitoring, INR range 2-3,Chronic atrial fibrillation (HC) Take by mouth: 2.5mg on 08/27 evening, 5mg on 08/28 evening. Further doses per INR check Thursday. 0 3 Active oxyCODONE-acetami nophen (PERCOCET) 5-325 mg per tabletIndications :Chronic cutaneous venous stasis ulcer (HC) 1 tab oral at bedtime as needed for pain. 20 Tablet 3 Active torsemide (DEMADEX) 20 mg tablet Take 20 mg by mouth. TAKE ONE TABLET BY MOUTH THREE TIMES A WEEK (THURSDAY, THURSDAY, THURSDAY) 3 Active cetirizine (ZYRTEC) 10 mg tablet Take 10 mg by mouth once daily. 3 Active acetaminophen (TYLENOL) 325 mg tablet Take 325 mg by mouth. BID 3 Active Cephalexin 500 mg tablet Take 500 mg by mouth. 4 Active potassium chloride (K-JAMES) 20 mEq packet Mix 20 mEq in liquid then take by mouth once daily with a meal. 4 Active Active Problems Problem Noted Date Diagnosed Date Permanent atrial fibrillation 08/25/2022 Bradycardia 08/25/2022 Chronic heart failure with preserved ejection fr action 08/25/2022 Nonrheumatic aortic valve stenosis 08/25/2022 Parkinson's disease 08/25/2022 Acute respiratory failure with hypoxia 3 Acute pulmonary edema 08/15/2022 Cellulitis 08/11/2022 Parkinson disease 08/11/2022 BMI 50.0-59.9, adult 03/19/2022 Chronic cutaneous venous stasis ulcer 03/19/2022 Grief reaction 03/19/2022 Acute on chronic diastolic CHF (congestive heart failure) 04/10/2021 Body mass index (BMI) of 50.0 to 59.9 in adult 0 04/10/2021 Wound of right leg 04/10/2021 Warthin's tumor 12/07/2019 Controlled substance agreement signed 03/25/2017 Venous stasis ulcers 11/25/2016 Onychomycosis 10/14/2016 Venous insufficiency of both lower extremities 0 10/08/2016 CRISTY 07/10/2013 AHI-55 07/14/2013 ACP (advance care planning) 05/11/2013 Overview (05/11/2013): Working on a plan Chronic atrial fibrillation 03/21/2013 Vitamin D deficiency 03/22/2009 Total knee replacement status 08/17/2008 Routine general medical exam ination at a health care facility 02/15/2008 Overview (02/15/2008): Dexa normal 2007, colonoscopy normal 2006, ok for 10 years. 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) use of anticoagulants 08/17/2008 02/19/2009 Overview (08/25/2008): INR goal range 1.5-2.5 Encounters Date Type Department Care Team Description 05/23/2024 Telephone [facility] [address] [place] [address] Sofia Guerrero MD Referral (To Vascular) from Last 3 Months Immunizations Immunization Administration Dates Next Due AMB Influenza, IIV3 (Age >=3 years)(Flu Clinic Only) 12/19/2010,01/04/2008 COVID-19 vaccine (Moderna 100mcg/0.5mL) JOSH COOK 04/12/2020,03/15/2020 Influenza A (H1N1), Inactivated 02/19/2009 Influenza A (H1N1), Inactiva moe (Age >=3 Years) 02/19/2009 Influenza, High-dose Inactivated 11/29/2015,10/0 09/2014,11/24/2013 Influenza, High-dose Quadriv alent Inactivated 12/18/2021 Influenza, IIV3 (Age 6-35 mos) 12/19/2010,2008 Influenza, IIV3 (Age >=3 years) 11/17/19 13,02/10/2012,02/19/2009,2007,12/28/2006,12/29/2005,12/19/2004,1 ,01/13/2003 Influenza, Inactivated AIIV4 (Age 65+ Years) Preserv Free 11/13/2020,11/14/2019 Influenza, Inactivated IIV3 (Age 65+ Years) Preserv Free 11/12/2018,11/30/2017,11/24/2016 Pneumococcal Poly,23-Valent (Pneumovax) 01/15/2005 Pneumococcal conj 13-Valent (Prevnar 13) 06/06/2014 Td (Age >=7 Years) 01/15/2005 Td, Preservative Free (age > = 7 Years) 01/15/2005 Tdap 05/10/2012 Zoster (Zostavax-ZVL, live) 02/19/2006 Family History Medical History Relation Name Comments Cancer-breast No Family History Cancer-colon No Family History Heart Disease No Family History Social History Tobacco Use Types Packs/Day Years Used Date Smoking Tobacco: Former Cigarettes 0.5 40 0 [birth year]/02/1950 - 03/02/1990 Smokeless Tobacco: Never Tobacco Cessation:Counseling Given: Yes Alcohol Use Standard Drinks/Week Comments Yes 0 (1 standard drink = 0.6 oz pur e alcohol) 1 bottle of beer per week PHQ-2 Answer Date Recorded PHQ-2 TOTAL SCORE 0 02/12/2021 Social Connections Answer Date Recorded Frequency of Communication with Friends and Fami ly Not on file 06/23/2022 Financial Resource Strain Answer Date R ecorded Difficulty of Paying Living Expenses 3 06/21/2021 Difficulty of Paying Living Expenses Not on file 06/21/2021 Food Insecurity Answer Date Recorded Worried About Running Out of Food in the Last Ye ar 1 06/21/2021 Transportation Needs Answer Date Record ed Lack of Transportation (Medical) 1 06/21/2021 Housing Stability Answer Date Recorded Unable to Pay for Housing in the Last Year 1 06/21/2021 Comments No Sex and Gender Information Value Date Recorded Sex Assigned at Not on file Legal Sex 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 Gender Identity Not on file Sexual Orientation Not on file Obstetrics History Para Term AB IAB SAB Ectopic Multiple Livin g Live Births 0 0 0 0 0 0 0 0 0 0 Last Filed Vital Signs Vital Sign Reading Time Taken Comments Blood Pressure 123/61 08/27/2022 7:32 AM CDT Pulse 54 08/27/2022 7:32 AM CDT Temperature 36.5 C (97.7 F) 08/27/2022 7:32 AM CDT Respiratory Rate 17 08/27/2022 7:32 AM CDT Oxygen Saturation 94% 08/27/2022 7:32 AM CDT Inhaled Oxygen Concentration - - Weight 89.4 kg (197 lb 1.5 oz) 08/26/2022 5:30 A M CDT Height 152.4 cm (5') 08/12/2022 8:00 AM CDT Body Mass Index 38.49 08/12/2022 8:00 AM CDT Plan of Treatment Health Maintenance Due Date Last Done Comments Zoster (shingles) series for age 50+ (2 of 3) 04/16/2006 02/19/2006 RSV vaccine for adults or (1 - 1-dose 75+ series) 2012 Depression screening for age 12+ 02/12/2022 02/12/2021, 02/12/2021, 12/07/2019, Additional history exists Medicare Wellness for age 65+ 02/13/2022, 12/07/2019, 10/08/2017, Additional history exists Tetanus booster 05/10/2022 05/10/2012, 12/31, 01/15/2005 BMI (ht and wt on same day) for age 18+ 11/12/2022 11/12/2021, 02/12/2021, 12/07/2019, Additional history exists COVID-19 vaccine series ( season) 2023 12/26/2021, 08/26/2021, 01/31/2021, Additional history exists Influenza Vaccine (#1) 2023 , 11/14/2019, 11/12/2018, Additional history exists DEXA/DXA scan for age 65+ Completed 03/09/2007 Tdap Completed 05/10/2012 Pneumococcal series for age 50+ Completed 5, 01/15/2005 Procedures Procedure Name Priority Date/Time Associated Diagnosis Comments XR DXA BONE DENSITY 2 SITES AXIAL Routine 03/09/2007 9:16 AM SKIP PIT WORKER Screening Osteoporosis from Last 3 Months or Most Recently Relevant to Health Maintenance Results * XR DEXA BONE DENSITY 2 SITES (03/09/2007 9:16 AM SKIP PIT WORKER) Anatomical Region Laterality Modality Spine, HIPS, HIPL, HIPR Other 03/09/2007 9:16 AM SKIP PIT WORKER Narrative 03/11/2007 2:20 PM SKIP PIT WORKER Please see scanned document for results of this study. Procedure Note Yohana Colunga D - 03/19/2007 Please see scanned document for results of this study. Yohana Colunga DEXA Final R esult from Last 3 Months or Most Recently Relevant to Health Maintenance Insurance MEDICARE PART B HB ONLY BLUE CROSS AGDAAGUX BLUE MR PB ONLY BLUE CROSS AGDAAGUX BLUE HB ONLY MEDICARE PART A HB ONLY Advance Directives Documents on File Type Date Recorded Patient Rag Grader Expl anation JOE 11/13/2021 1:30 PM BART DIAZ [place] 11/12/2021 Power of Call Or Contact Centre Team Leader 04/09/2015 04/09/2015 * DNR (Latest Code Status on File) Date Activated Date Inactivated Comments 08/14/2022 1:44 PM 08/27/2022 4:37 PM Discussed wi th nephew Michi 08/14/2022 Question Answer Comments Code Status Discussion: Reviewed Preferences * Full Code Date Activated Date Inactivated Comments 08/11/2022 8:45 PM 08/14/2022 1:44 PM Question Answer Comments Code Status Discussion: Reviewed Preferences * Full Code Date Activated Date Inactivated Comments 07/28/2018 2:32 PM 07/28/2018 5:58 PM Question Answer Comments Code Status Discussion: Not Discussed * Full Code Date Activated Date Inactivated Comments 07/28/2018 10:04 AM 07/28/2018 2:32 PM Question Answer Comments Code Status Discussion: Not Discussed * Full Code Date Activated Date Inactivated Comments 07/28/2018 10:03 AM 07/28/2018 10:04 AM
--- OUTSIDE RECORDS SUMMARY | 2024-05-27 15:23 | XMS_ITS | Clinical Summary ---
Author Organization [employer] 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 Procedure Note Yohana Colunga D - 03/19/2007 Please see scanned document for results of this study. 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
--- NOTE | 2024-05-27 15:25 | ED.GENADULT ---
HPI - General Adult General Chief complaint: Skin/Abscess/Foreign Body <Herminia Gotti MD - Last Filed: 05/28/24 10:26> Stated complaint: Cellulitis Lt leg <Herminia Gotti MD - Last Filed: 05/28/24 10:26> Time Seen by Provider: 05/27/24 16:39 <Herminia Gotti MD - Last Filed: 05/28/24 10:26> Source: patient <Herminia Gotti MD - Last Filed: 05/28/24 10:26> Mode of arrival: ambulatory <Herminia Gotti MD - Last Filed: 05/28/24 10:26> Limitations: no limitations <Herminia Gotti MD - Last Filed: 05/28/24 10:26> History of Present Illness HPI narrative: Patient is an 88-year-old female who was told to come in for an evaluation by her home health nurse. Patient has chronic lower extremity wounds that have not been healing well. She was put on an antibiotic 1 week ago and took her last dose yesterday she was supposed to have an [facility] and did not go. She states that the pain in the left lower extremity is getting worse instead of better. She states that for the last 2 days she has had little energy, wants to stay in bed all day, sometimes feels chills. Has had a decreased appetite. Looks like her last visit to the wound care clinic was on 05/20/2024 when she told him at that time that she was on antibiotic then also, unclear of what that antibiotic was. <Herminia Gotti MD - Last Filed: 05/28/24 10:26> Related Data Home medications: Home Medications ?Medication ?Instructions ?Recorded ?Confirmed carbidopa 25 mg-levodopa 100 mg 1 tab PO TID 08/07/22 05/27/24 tablet fluoxetine 10 mg capsule 30 mg PO DAILY 05/19/23 05/27/24 furosemide 20 mg tablet 60 mg PO DAILY 05/19/23 05/27/24 warfarin 3 mg tablet 3 mg PO 5XW 05/19/23 05/27/24 acetaminophen 325 mg tablet 975 mg PO TID 06/15/23 05/27/24 aluminum-mag hydroxide-simethicone 30 ml PO QID PRN 06/15/23 05/27/24 200 mg-200 mg-20 mg/5 mL oral susp (Advanced Antacid-Antigas) bisacodyl 10 mg rectal suppository 10 mg GA DAILY PRN 06/15/23 05/27/24 (Dulcolax (bisacodyl)) loperamide 2 mg tablet (Imodium 2 mg PO PRN PRN 06/15/23 05/27/24 A-D) magnesium hydroxide 400 mg/5 mL 30 ml PO Q48H PRN 06/15/23 05/27/24 oral suspension (Milk of Magnesia) warfarin 4 mg tablet 2 mg PO .Thursday06/15/23 05/27/24 guaifenesin 600 mg tablet, 600 mg PO BID 08/06/23 05/27/24 extended release 12 hr (Mucus Relief ER) potassium chloride 10 mEq 30 meq PO DAILY 08/18/23 05/27/24 tablet,extended release(part/cryst) oxycodone 5 mg tablet 5 mg PO Q6H 05/27/24 05/27/24 Previous Rx's ?Medication ?Instructions ?Recorded metoprolol tartrate 25 mg tablet 25 mg PO BID #60 tabs 11/11/22 losartan 50 mg tablet 50 mg PO BID #60 tabs 05/21/23 lidocaine 5 % topical patch 1 patch transdermal Q24H #30 ea 08/20/23 <Herminia Gotti MD - Last Filed: 05/28/24 10:26> Allergies/adverse reactions: Allergies Allergy/AdvReac Type Severity Reaction Status Date / Time hydrochlorothiazide Allergy Verified 05/27/24 14:49 Sulfa (Sulfonamide Allergy Rash Verified 05/27/24 14:49 Antibiotics) <Herminia Gotti MD - Last Filed: 05/28/24 10:26> Review of Systems Status of ROS: Reports: 10 or more systems reviewed and unremarkable except as noted in History and below <Herminia Gotti MD - Last Filed: 05/28/24 10:26> [facility] Medical History: Medical History (Updated 05/28/24 @ 08:23 by Adeline Garcia MD) History of delirium ?Z87.898 - Personal history of other specified conditions (ICD-10) Right upper lobe pneumonia ?J18.9 - Pneumonia, unspecified organism (ICD-10) Chronic hypoxic respiratory failure, on home oxygen therapy ?J96.11 - Chronic respiratory failure with hypoxia (ICD-10) ?Z99.81 - Dependence on supplemental oxygen (ICD-10) Tricuspid valve regurgitation ?I07.1 - Rheumatic tricuspid insufficiency (ICD-10) Diastolic heart failure with preserved ejection fraction ?I50.30 - Unspecified diastolic (congestive) heart failure (ICD-10) Pulmonary hypertension ?I27.20 - Pulmonary hypertension, unspecified (ICD-10) Atrial fibrillation ?I48.91 - Unspecified atrial fibrillation (ICD-10) Cellulitis ?L03.90 - Cellulitis, unspecified (ICD-10) Obstructive sleep apnea ?G47.33 - Obstructive sleep apnea (adult) (pediatric) (ICD-10) Physical debility ?R53.81 - Other malaise (ICD-10) Essential hypertension ?I10 - Essential (primary) hypertension (ICD-10) Venous stasis ulcers of both lower extremities ?I83.019 - Varicose veins of right lower extremity with ulcer of unspecified site (ICD-10) ?I83.029 - Varicose veins of left lower extremity with ulcer of unspecified site (ICD-10) ?L97.919 - Non-pressure chronic ulcer of unspecified part of right lower leg with unspecified severity (ICD-10) ?L97.929 - Non-pressure chronic ulcer of unspecified part of left lower leg with unspecified severity (ICD-10) POLST (Physician Orders for Life-Sustaining Treatment) ?Z78.9 - Other specified health status (ICD-10) Aortic stenosis ?I35.0 - Nonrheumatic aortic (valve) stenosis (ICD-10) 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 (ICD-10) Parkinson disease ?G20 - Parkinson's disease (ICD-10) Lymphedema ?I89.0 - Lymphedema, not elsewhere classified (ICD-10) Chronic pain ?G89.29 - Other chronic pain (ICD-10) Cellulitis of left lower leg ?L03.116 - Cellulitis of left lower limb (ICD-10) Morbid obesity ?E66.01 - Morbid (severe) obesity due to excess calories (ICD-10) Fracture of rib ?S22.39XA - Fracture of one rib, unspecified side, initial encounter for closed fracture (ICD-10) Physical deconditioning ?R53.81 - Other malaise (ICD-10) At risk for falls ?Z91.81 - History of falling (ICD-10) Unstable gait ?R26.81 - Unsteadiness on feet (ICD-10) Opioid dependence ?F11.20 - Opioid dependence, uncomplicated (ICD-10) Chronic atrial fibrillation ?I48.20 - Chronic atrial fibrillation, unspecified (ICD-10) Depression ?F32.A - Depression, unspecified (ICD-10) Generalized OA ?M15.9 - Polyosteoarthritis, unspecified (ICD-10) Durable power of litigation attorney in chart Health care directive on file ?Z78.9 - Other specified health status (ICD-10) Closed right ankle fracture ?S82.891A - Other fracture of right lower leg, initial encounter for closed fracture (ICD-10) Osteoarthritis of right shoulder ?M19.011 - Primary osteoarthritis, right shoulder (ICD-10) Osteoarthritis of left shoulder ?M19.012 - Primary osteoarthritis, left shoulder (ICD-10) Right rotator cuff tear arthropathy ?M75.101 - Unspecified rotator cuff tear or rupture of right shoulder, not specified as traumatic (ICD-10) ?M12.811 - Other specific arthropathies, not elsewhere classified, right shoulder (ICD-10) Osteoarthritis of left knee ?M17.12 - Unilateral primary osteoarthritis, left knee (ICD-10) Ulcer of lower extremity ?L97.909 - Non-pressure chronic ulcer of unspecified part of unspecified lower leg with unspecified severity (ICD-10) Cellulitis of leg ?L03.119 - Cellulitis of unspecified part of limb (ICD-10) <Herminia Gotti MD - Last Filed: 05/28/24 10:26> Surgical History: Surgical History H/O excision of mass (09/21/00) ?Z98.890 - Other specified postprocedural states (ICD-10) 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 Lives at [place], [place]. No children. Nephew, Michi Chang, is her POA ([phone]). Requests DNR/DNI resuscitation status. What is your current living situation?: I presently have a place to live Problems where you live: no known problems Problems where you live details: n/a In the past 12 months, utilities in danger of being shut off: no In past 12 months, lack of transportation kept you from medical appts, meetings, work, or getting things needed for daily living: no In the past 12 mos, have been you worried that your food would run out before you had money to buy more?: never true In the past 12 mos, the food you bought just didn't last and you didn't have money to buy more?: never true Highest level of school completed/degree received: Associate degree: academic program Smoking Status: Former smoker What tobacco products do you use: cigarettes Smoking quit date/years: >15 years ago Do you use any of these nicotine containing products: None Second hand tobacco smoke exposure: No Non-prescribed substance use: denies use Caffeine: Yes How often does anyone, including family, friends and others, physically hurt you: never How often does anyone, including family, friends and others, insult or talk down to you: never How often does anyone, including family, friends and others, threaten you with harm: never How often does anyone, including family, friends and others, scream or curse at you: never service: No <Herminia Gotti MD - Last Filed: 05/28/24 10:26> Exam Narrative: Exam Narrative: Overweight, well-developed patient in no acute distress. Alert and oriented. Answers questions appropriately. Mood and affect are appropriate. Thoughts are goal oriented and rational. No tangential or magical thinking noted. Patient speaks in full sentences without needing to catch her breath. HEENT: Normocephalic atraumatic. Pupils are equally round reactive to light. Extraocular muscles are intact. Conjunctivae are moist without any icterus noted. Moist mucous membranes. Cardiovascular: Heart is regular rate and rhythm, S1 and S2 present with a loud 4/6 murmur. Lungs: Clear to auscultation bilaterally. Abdomen: Soft and nontender nondistended with normal bowel sounds. Extremities: Patient has multiple ulcerations of the left lower extremity. She has erythema with swelling and bright erythema of the foot, foot is hot to touch consistent with an ongoing cellulitis. She has chronic discoloration of the right lower extremity without evidence of infection. <Herminia Gotti MD - Last Filed: 05/28/24 10:26> Const: Vital Signs, click to edit/add: Vital Signs - 24 hr 05/27/24 14:41 05/27/24 17:24 05/27/24 17:26 Temperature 97.0 F L Pulse Rate Pulse Rate [Pulse Oximeter] 63 Respiratory Rate 16 18 23 Blood Pressure 157/85 H Blood Pressure [Ri ght Arm] Blood Pressure [Ri ght Upper Arm] 142/70 H Pulse Oximetry 95 Oxygen Delivery Me thod Room Air 05/27/24 17:31 05/27/24 17:35 05/27/24 18:00 Temperature Pulse Rate Pulse Rate [Pulse Oximeter] Respiratory Rate 19 14 Blood Pressure 118/74 Blood Pressure [Ri ght Arm] Blood Pressure [Ri ght Upper Arm] Pulse Oximetry Oxygen Delivery Me thod 05/27/24 18:04 05/27/24 20:00 05/27/24 20:14 Temperature 98 F 97.0 F L Pulse Rate Pulse Rate [Pulse Oximeter] 81 65 Respiratory Rate 19 20 19 Blood Pressure 145/73 H Blood Pressure [Ri ght Arm] 132/67 Blood Pressure [Ri ght Upper Arm] 135/68 Pulse Oximetry 96 95 Oxygen Delivery Me thod Room Air Room Air 05/27/24 20:18 05/27/24 20:26 Temperature Pulse Rate 69 Pulse Rate [Pulse Oximeter] Respiratory Rate 19 Blood Pressure Blood Pressure [Ri ght Arm] Blood Pressure [Ri ght Upper Arm] Pulse Oximetry 95 Oxygen Delivery Me thod Room Air <Herminia Gotti MD - Last Filed: 05/28/24 10:26> Vital Signs, click to edit/add: Vital Signs - 24 hr 05/27/24 14:41 05/27/24 17:24 05/27/24 17:26 Temperature 97.0 F L Pulse Rate Pulse Rate [Pulse Oximeter] 63 Respiratory Rate 16 18 23 Blood Pressure 157/85 H Blood Pressure [Ri ght Arm] Blood Pressure [Ri ght Upper Arm] 142/70 H Pulse Oximetry 95 Oxygen Delivery Me thod Room Air 05/27/24 17:31 05/27/24 17:35 05/27/24 18:00 Temperature Pulse Rate Pulse Rate [Pulse Oximeter] Respiratory Rate 19 14 Blood Pressure 118/74 Blood Pressure [Ri ght Arm] Blood Pressure [Ri ght Upper Arm] Pulse Oximetry Oxygen Delivery Me thod 05/27/24 18:04 05/27/24 20:00 05/27/24 20:14 Temperature 98 F 97.0 F L Pulse Rate Pulse Rate [Pulse Oximeter] 81 65 Respiratory Rate 19 20 19 Blood Pressure 145/73 H Blood Pressure [Ri ght Arm] 132/67 Blood Pressure [Ri ght Upper Arm] 135/68 Pulse Oximetry 96 95 Oxygen Delivery Me thod Room Air Room Air 05/27/24 20:18 05/27/24 20:26 Temperature Pulse Rate 69 Pulse Rate [Pulse Oximeter] Respiratory Rate 19 Blood Pressure Blood Pressure [Ri ght Arm] Blood Pressure [Ri ght Upper Arm] Pulse Oximetry 95 Oxygen Delivery Me thod Room Air <Herminia Lewis MD - Last Filed: 05/27/24 19:11> Course Course ED Course: At this time we will draw labs. Patient will be started on IV Zosyn. Will likely need admission. <Herminia Gotti MD - Last Filed: 05/28/24 10:26> Reevaluation(s) Time of Reevaluation #1: 17:20 <Herminia Lewis MD - Last Filed: 05/27/24 19:11> Reevaluation #1: See that patient's potassium has come back critical at 7, creatinine is at 1.5. Will have lab do a stat recheck of her potassium, will also request to see if the specimen was hemolyzed. Will look at EKG in the meantime. Initiate 250 mL normal saline bolus while we await recheck potassium, did contact lab. They do feel that there is a good chance specimen was hemolyzed but still will get a stat recheck of her potassium going. <Herminia Lewis MD - Last Filed: 05/27/24 19:11> Time of Reevaluation #2: 18:12 <Herminia Lewis MD - Last Filed: 05/27/24 19:11> Reevaluation #2: Repeat potassium is 6.5. Patient did have a 250 mL normal saline bolus started before the potassium is rechecked. I did call Dr. Mcrae when I had the recheck potassium level. Did discuss recommendations for further fluids, we agreed on a L over 2 hours, will give 20 mg IV Lasix. Will give calcium gluconate 1 g IV. She is worried about this patient, we have agreed that she can come down and assess the patient here in room 6. Will do a lab add on CK as I discussed with Dr. Mcrae. Dr. Mcrae did evaluate the patient, will accept. <Herminia Lewis MD - Last Filed: 05/27/24 19:11> Vital Signs Vital signs: Initial Vital Signs Temperature 97.0 F L 05/27/24 14:41 Temperature Source Temporal Artery Scan 05/27/24 14:41 Pulse Rate 63 05/27/24 14:41 Respiratory Rate 16 05/27/24 14:41 Blood Pressure 142/70 H 05/27/24 14:41 Blood Pressure Mean 94 05/27/24 14:41 Blood Pressure Position Sitting 05/27/24 14:41 Pulse Oximetry 95 05/27/24 14:41 Oxygen Delivery Method Room Air 05/27/24 14:41 Vital Signs Temperature 97.0 F L 05/27/24 14:41 Pulse Rate 63 05/27/24 14:41 Respiratory Rate 16 05/27/24 14:41 Blood Pressure 142/70 H 05/27/24 14:41 Pulse Oximetry 95 05/27/24 14:41 Oxygen Delivery Method Room Air 05/27/24 14:41 Temperature 98 F 05/28/24 10:00 Pulse Rate 82 05/28/24 10:00 Respiratory Rate 20 05/28/24 10:00 Blood Pressure 90/65 05/28/24 10:00 Pulse Oximetry 94 05/28/24 10:00 Oxygen Delivery Method Nasal Cannula 05/28/24 10:00 Oxygen Flow Rate 2 05/28/24 10:00 <Herminia Gotti MD - Last Filed: 05/28/24 10:26> Initial Vital Signs Temperature 97.0 F L 05/27/24 14:41 Temperature Source Temporal Artery Scan 05/27/24 14:41 Pulse Rate 63 05/27/24 14:41 Respiratory Rate 16 05/27/24 14:41 Blood Pressure 142/70 H 05/27/24 14:41 Blood Pressure Mean 94 05/27/24 14:41 Blood Pressure Position Sitting 05/27/24 14:41 Pulse Oximetry 95 05/27/24 14:41 Oxygen Delivery Method Room Air 05/27/24 14:41 Vital Signs Temperature 97.0 F L 05/27/24 14:41 Pulse Rate 63 05/27/24 14:41 Respiratory Rate 16 05/27/24 14:41 Blood Pressure 142/70 H 05/27/24 14:41 Pulse Oximetry 95 05/27/24 14:41 Oxygen Delivery Method Room Air 05/27/24 14:41 Temperature 98 F 05/28/24 10:00 Pulse Rate 82 05/28/24 10:00 Respiratory Rate 20 05/28/24 10:00 Blood Pressure 90/65 05/28/24 10:00 Pulse Oximetry 94 05/28/24 10:00 Oxygen Delivery Method Nasal Cannula 05/28/24 10:00 Oxygen Flow Rate 2 05/28/24 10:00 <Herminia Lewis MD - Last Filed: 05/27/24 19:11> Medications Administered Medications: Generic Name Dose Route Start Last Admin Trade Name Freq PRN Reason Stop Dose Admin Acetaminophen 975 mg 05/27/24 20:37 05/27/24 21:04 Acetaminophen 325 Mg Tablet PO 975 mg Q6H PRN Administration pain or fever Carbidopa/Levodopa 1 tab 05/27/24 21:00 05/28/24 10:09 Carbidopa-Levodopa 25-100 Tablet PO 1 tab TID [place] Administration Fluoxetine HCl 30 mg 05/28/24 09:00 05/28/24 10:10 Fluoxetine Hcl 10 Mg Capsule PO 30 mg DAILY [place] Administration Hydromorphone HCl 0.5 - 1 mg 05/27/24 20:37 05/28/24 06:01 Hydromorphone 0.5 Mg/0.5 Ml Inj IVP 0.5 mg Q2H PRN Administration Breakthrough Pain Piperacillin Sod/Tazobactam 100 mls @ 200 mls/hr 05/27/24 22:00 05/28/24 10:20 Sod 2.25 gm/ Sodium Chloride IVPB 200 mls/hr Q6H [place] Administration Metoprolol Tartrate 25 mg 05/27/24 21:00 05/28/24 10:09 Metoprolol Tartrate 25 Mg Tablet PO Not Given BID [place] Nystatin 1 applic 05/27/24 21:00 05/28/24 10:10 Nystatin Cream 30 Gm TOPICAL 1 applic TID [place] Administration Oxycodone HCl 2.5 - 5 mg 05/27/24 20:37 05/27/24 21:04 Oxycodone 5 Mg Tablet PO 5 mg Q4H PRN Administration Pain Sodium Chloride 5 ml 05/27/24 20:37 05/28/24 06:01 Sodium Chloride 0.9 % (Flush) 10 Ml Syringe IVF 5 ml .FLUSH PRN Administration Sodium Chloride 5 ml 05/27/24 21:00 05/28/24 10:20 Sodium Chloride 0.9 % (Flush) 10 Ml Syringe IVF 5 ml BID [place] Administration Discontinued Medications Generic Name Dose Route Start Last Admin Trade Name Freq PRN Reason Stop Dose Admin Hydrocodone Bitart/Acetaminophen 1 tab 05/27/24 15:48 05/27/24 16:30 Hydrocodone-Acetamin 5-325 Mg 1 Tab PO 05/27/24 15:49 1 tab ONCE ONE Administration Diphenhydramine HCl 25 mg 05/27/24 21:29 05/27/24 21:35 Diphenhydramine 50 Mg/Ml Inj IVP 05/27/24 21:30 25 mg ONCE ONE Administration Furosemide 20 mg 05/27/24 18:16 05/27/24 20:54 Furosemide 10 Mg/Ml Inj IVP 05/27/24 18:17 Not Given ONCE ONE Furosemide 40 mg 05/27/24 21:16 05/27/24 21:28 Furosemide 10 Mg/Ml Inj IVP 05/27/24 21:17 40 mg ONCE ONE Administration Piperacillin Sod/Tazobactam 100 mls @ 200 mls/hr 05/27/24 15:19 05/27/24 19:29 Sod 3.375 gm/ Sodium Chloride IVPB 05/27/24 15:20 Infused ONCE ONE Infusion Sodium Chloride 250 mls @ 250 mls/hr 05/27/24 17:38 05/27/24 19:29 0.9 % Sodium Chloride 250 Ml IV 05/27/24 18:37 Infused .Q1H ONE Infusion Calcium Gluconate/Sodium Chloride 1,000 mg in 50 mls @ 100 mls/hr 05/27/24 18:16 05/27/24 19:29 Calcium Gluc 1,000mg/50 Ml IVPB 05/27/24 18:45 Infused ONCE ONE Infusion Sodium Chloride 1,000 mls @ 500 mls/hr 05/27/24 18:17 05/27/24 21:55 0.9 % Sodium Chloride 1000 Ml IV 05/27/24 20:16 Infused .Q2H [place] Infusion Vancomycin/PEG/NADA/Lysine/Water 1.75 gm in 350 mls @ 200 mls/hr 05/27/24 21:00 05/27/24 23:32 Vancomycin 1.75 Gm/350 Ml IVPB 05/27/24 22:44 Infused ONCE ONE Infusion Protocol Midodrine 10 mg 05/28/24 03:19 05/28/24 03:41 Midodrine Hcl 5 Mg Tablet PO 05/28/24 03:20 10 mg ONCE ONE Administration <Herminia Gotti MD - Last Filed: 05/28/24 10:26> Generic Name Dose Route Start Last Admin Trade Name Freq PRN Reason Stop Dose Admin Acetaminophen 975 mg 05/27/24 20:37 05/27/24 21:04 Acetaminophen 325 Mg Tablet PO 975 mg Q6H PRN Administration pain or fever Carbidopa/Levodopa 1 tab 05/27/24 21:00 05/28/24 10:09 Carbidopa-Levodopa 25-100 Tablet PO 1 tab TID [place] Administration Fluoxetine HCl 30 mg 05/28/24 09:00 05/28/24 10:10 Fluoxetine Hcl 10 Mg Capsule PO 30 mg DAILY [place] Administration Hydromorphone HCl 0.5 - 1 mg 05/27/24 20:37 05/28/24 06:01 Hydromorphone 0.5 Mg/0.5 Ml Inj IVP 0.5 mg Q2H PRN Administration Breakthrough Pain Piperacillin Sod/Tazobactam 100 mls @ 200 mls/hr 05/27/24 22:00 05/28/24 10:20 Sod 2.25 gm/ Sodium Chloride IVPB 200 mls/hr Q6H [place] Administration Metoprolol Tartrate 25 mg 05/27/24 21:00 05/28/24 10:09 Metoprolol Tartrate 25 Mg Tablet PO Not Given BID [place] Nystatin 1 applic 05/27/24 21:00 05/28/24 10:10 Nystatin Cream 30 Gm TOPICAL 1 applic TID [place] Administration Oxycodone HCl 2.5 - 5 mg 05/27/24 20:37 05/27/24 21:04 Oxycodone 5 Mg Tablet PO 5 mg Q4H PRN Administration Pain Sodium Chloride 5 ml 05/27/24 20:37 05/28/24 06:01 Sodium Chloride 0.9 % (Flush) 10 Ml Syringe IVF 5 ml .FLUSH PRN Administration Sodium Chloride 5 ml 05/27/24 21:00 05/28/24 10:20 Sodium Chloride 0.9 % (Flush) 10 Ml Syringe IVF 5 ml BID [place] Administration Discontinued Medications Generic Name Dose Route Start Last Admin Trade Name Freq PRN Reason Stop Dose Admin Hydrocodone Bitart/Acetaminophen 1 tab 05/27/24 15:48 05/27/24 16:30 Hydrocodone-Acetamin 5-325 Mg 1 Tab PO 05/27/24 15:49 1 tab ONCE ONE Administration Diphenhydramine HCl 25 mg 05/27/24 21:29 05/27/24 21:35 Diphenhydramine 50 Mg/Ml Inj IVP 05/27/24 21:30 25 mg ONCE ONE Administration Furosemide 20 mg 05/27/24 18:16 05/27/24 20:54 Furosemide 10 Mg/Ml Inj IVP 05/27/24 18:17 Not Given ONCE ONE Furosemide 40 mg 05/27/24 21:16 05/27/24 21:28 Furosemide 10 Mg/Ml Inj IVP 05/27/24 21:17 40 mg ONCE ONE Administration Piperacillin Sod/Tazobactam 100 mls @ 200 mls/hr 05/27/24 15:19 05/27/24 19:29 Sod 3.375 gm/ Sodium Chloride IVPB 05/27/24 15:20 Infused ONCE ONE Infusion Sodium Chloride 250 mls @ 250 mls/hr 05/27/24 17:38 05/27/24 19:29 0.9 % Sodium Chloride 250 Ml IV 05/27/24 18:37 Infused .Q1H ONE Infusion Calcium Gluconate/Sodium Chloride 1,000 mg in 50 mls @ 100 mls/hr 05/27/24 18:16 05/27/24 19:29 Calcium Gluc 1,000mg/50 Ml IVPB 05/27/24 18:45 Infused ONCE ONE Infusion Sodium Chloride 1,000 mls @ 500 mls/hr 05/27/24 18:17 05/27/24 21:55 0.9 % Sodium Chloride 1000 Ml IV 05/27/24 20:16 Infused .Q2H [place] Infusion Vancomycin/PEG/NADA/Lysine/Water 1.75 gm in 350 mls @ 200 mls/hr 05/27/24 21:00 05/27/24 23:32 Vancomycin 1.75 Gm/350 Ml IVPB 05/27/24 22:44 Infused ONCE ONE Infusion Protocol Midodrine 10 mg 05/28/24 03:19 05/28/24 03:41 Midodrine Hcl 5 Mg Tablet PO 05/28/24 03:20 10 mg ONCE ONE Administration <Herminia Lewis MD - Last Filed: 05/27/24 19:11> Medical Decision Making Lab Data Labs: Lab Results 05/27/24 05/27/24 05/27/24 Range/Units 16:15 17:39 18:28 WBC 6.54 (4.50-11.00) K/uL RBC 4.23 (4.00-5.20) m/uL Hgb 13.3 (12.0-16.0) gm/dL Hct 42.6 (33.0-51.0) % MCV 101 H (80-100) fL MCH 31 (26-34) pg MCHC 31 L (32-36) gm/dL RDW Coeff of Mandeep 14.6 (11.5-15.5) % Plt Count 227 (140-440) K/uL Neut % (Auto) 75.5 H (42.0-72.0) % Lymph % (Auto) 2.9 L (20-44) % [facility] [place] [facility] % (Auto) 16.7 H (0.0-11.0) % Eos % (Auto) 3.8 (0.0-7.0) % Baso % (Auto) 0.6 (0.0-3.0) % Neut # (Auto) 4.90 (1.7-7.0) K/uL Lymph # (Auto) 0.20 L (0.90-2.90) K/uL [facility] # (Auto) 1.10 H (0.00-0.90) K/UL Eos # (Auto) 0.25 (0.00-0.50) K/uL Baso # (Auto) 0.04 (0.00-0.30) K/uL Abs Immat Gran (auto) 0.03 (0.00-0.30) K/uL Imm/Tot Granulo (auto) 0.5 % INR 1.79 H (0.91-1.10) Sodium 137 (135-149) mmol/L Potassium 7.0 H* 6.5 H* (3.6-5.1) mmol/L Chloride 108 (96-114) mmol/L Carbon Dioxide 18 L (20-32) mmol/L Anion Gap 11 (7-15) mEq/L BUN 76 H (7-30) mg/dL Creatinine 1.5 (0.5-1.5) mg/dL Estimated Creat Clear 19.34 Estimated GFR 34 ml/min Glucose 94 (60-115) mg/dL Lactate 1.8 (0.5-1.9) mmol/L Calcium 8.7 (8.4-10.6) mg/dL Total Bilirubin 0.5 (0.1-1.5) mg/dL Direct Bilirubin 0.4 (0.0-0.5) mg/dL AST 22 (12-35) U/L ALT 10 (4-35) U/L Alkaline Phosphatase 106 (40-150) U/L Total Creatine Kinase < 20 L (41-117) U/L C-Reactive Protein 3.5 H (0.5-1.0) mg/dL Total Protein 7.4 (6.0-8.3) g/dL Albumin 4.1 (3.3-5.0) g/dL SARS-CoV-2 (PCR) Negative SARS-CoV-2 (Negative) Influenza Type A (PCR) Negative PCR FLU A (Negative) Influenza Type B (PCR) Negative PCR FLU B (Negative) Lab Acknowledgement Test Added 05/27/24 Range/Units 20:36 WBC (4.50-11.00) K/uL RBC (4.00-5.20) m/uL Hgb (12.0-16.0) gm/dL Hct (33.0-51.0) % MCV (80-100) fL MCH (26-34) pg MCHC (32-36) gm/dL RDW Coeff of Mandeep (11.5-15.5) % Plt Count (140-440) K/uL Neut % (Auto) (42.0-72.0) % Lymph % (Auto) (20-44) % [facility] [place] [facility] % (Auto) (0.0-11.0) % Eos % (Auto) (0.0-7.0) % Baso % (Auto) (0.0-3.0) % Neut # (Auto) (1.7-7.0) K/uL Lymph # (Auto) (0.90-2.90) K/uL [facility] # (Auto) (0.00-0.90) K/UL Eos # (Auto) (0.00-0.50) K/uL Baso # (Auto) (0.00-0.30) K/uL Abs Immat Gran (auto) (0.00-0.30) K/uL Imm/Tot Granulo (auto) % INR (0.91-1.10) Sodium (135-149) mmol/L Potassium 6.1 H* (3.6-5.1) mmol/L Chloride (96-114) mmol/L Carbon Dioxide (20-32) mmol/L Anion Gap (7-15) mEq/L BUN (7-30) mg/dL Creatinine (0.5-1.5) mg/dL Estimated Creat Clear Estimated GFR ml/min Glucose (60-115) mg/dL Lactate (0.5-1.9) mmol/L Calcium (8.4-10.6) mg/dL Total Bilirubin (0.1-1.5) mg/dL Direct Bilirubin (0.0-0.5) mg/dL AST (12-35) U/L ALT (4-35) U/L Alkaline Phosphatase (40-150) U/L Total Creatine Kinase (41-117) U/L C-Reactive Protein (0.5-1.0) mg/dL Total Protein (6.0-8.3) g/dL Albumin (3.3-5.0) g/dL SARS-CoV-2 (PCR) (Negative) Influenza Type A (PCR) (Negative) Influenza Type B (PCR) (Negative) Lab Acknowledgement <Herminia Gotti MD - Last Filed: 05/28/24 10:26> Lab Results 05/27/24 05/27/24 05/27/24 Range/Units 16:15 17:39 18:28 WBC 6.54 (4.50-11.00) K/uL RBC 4.23 (4.00-5.20) m/uL Hgb 13.3 (12.0-16.0) gm/dL Hct 42.6 (33.0-51.0) % MCV 101 H (80-100) fL MCH 31 (26-34) pg MCHC 31 L (32-36) gm/dL RDW Coeff of Mandeep 14.6 (11.5-15.5) % Plt Count 227 (140-440) K/uL Neut % (Auto) 75.5 H (42.0-72.0) % Lymph % (Auto) 2.9 L (20-44) % [facility] % (Auto) 16.7 H (0.0-11.0) % Eos % (Auto) 3.8 (0.0-7.0) % Baso % (Auto) 0.6 (0.0-3.0) % Neut # (Auto) 4.90 (1.7-7.0) K/uL Lymph # (Auto) 0.20 L (0.90-2.90) K/uL [facility] # (Auto) 1.10 H (0.00-0.90) K/UL Eos # (Auto) 0.25 (0.00-0.50) K/uL Baso # (Auto) 0.04 (0.00-0.30) K/uL Abs Immat Gran (auto) 0.03 (0.00-0.30) K/uL Imm/Tot Granulo (auto) 0.5 % INR 1.79 H (0.91-1.10) Sodium 137 (135-149) mmol/L Potassium 7.0 H* 6.5 H* (3.6-5.1) mmol/L Chloride 108 (96-114) mmol/L Carbon Dioxide 18 L (20-32) mmol/L Anion Gap 11 (7-15) mEq/L BUN 76 H (7-30) mg/dL Creatinine 1.5 (0.5-1.5) mg/dL Estimated Creat Clear 19.34 Estimated GFR 34 ml/min Glucose 94 (60-115) mg/dL Lactate 1.8 (0.5-1.9) mmol/L Calcium 8.7 (8.4-10.6) mg/dL Total Bilirubin 0.5 (0.1-1.5) mg/dL Direct Bilirubin 0.4 (0.0-0.5) mg/dL AST 22 (12-35) U/L ALT 10 (4-35) U/L Alkaline Phosphatase 106 (40-150) U/L Total Creatine Kinase < 20 L (41-117) U/L C-Reactive Protein 3.5 H (0.5-1.0) mg/dL Total Protein 7.4 (6.0-8.3) g/dL Albumin 4.1 (3.3-5.0) g/dL SARS-CoV-2 (PCR) Negative SARS-CoV-2 (Negative) Influenza Type A (PCR) Negative PCR FLU A (Negative) Influenza Type B (PCR) Negative PCR FLU B (Negative) Lab Acknowledgement Test Added 05/27/24 Range/Units 20:36 WBC (4.50-11.00) K/uL RBC (4.00-5.20) m/uL Hgb (12.0-16.0) gm/dL Hct (33.0-51.0) % MCV (80-100) fL MCH (26-34) pg MCHC (32-36) gm/dL RDW Coeff of Mandeep (11.5-15.5) % Plt Count (140-440) K/uL Neut % (Auto) (42.0-72.0) % Lymph % (Auto) (20-44) % [facility] % (Auto) (0.0-11.0) % Eos % (Auto) (0.0-7.0) % Baso % (Auto) (0.0-3.0) % Neut # (Auto) (1.7-7.0) K/uL Lymph # (Auto) (0.90-2.90) K/uL [facility] # (Auto) (0.00-0.90) K/UL Eos # (Auto) (0.00-0.50) K/uL Baso # (Auto) (0.00-0.30) K/uL Abs Immat Gran (auto) (0.00-0.30) K/uL Imm/Tot Granulo (auto) % INR (0.91-1.10) Sodium (135-149) mmol/L Potassium 6.1 H* (3.6-5.1) mmol/L Chloride (96-114) mmol/L Carbon Dioxide (20-32) mmol/L Anion Gap (7-15) mEq/L BUN (7-30) mg/dL Creatinine (0.5-1.5) mg/dL Estimated Creat Clear Estimated GFR ml/min Glucose (60-115) mg/dL Lactate (0.5-1.9) mmol/L Calcium (8.4-10.6) mg/dL Total Bilirubin (0.1-1.5) mg/dL Direct Bilirubin (0.0-0.5) mg/dL AST (12-35) U/L ALT (4-35) U/L Alkaline Phosphatase (40-150) U/L Total Creatine Kinase (41-117) U/L C-Reactive Protein (0.5-1.0) mg/dL Total Protein (6.0-8.3) g/dL Albumin (3.3-5.0) g/dL SARS-CoV-2 (PCR) (Negative) Influenza Type A (PCR) (Negative) Influenza Type B (PCR) (Negative) Lab Acknowledgement <Herminia Lewis MD - Last Filed: 05/27/24 19:11> ECG Data Attestation: I personally reviewed and interpreted this ECG as follows: (Atrial fibrillation, 82 beats per minute. T-waves seem to be definitely consistent with the T-waves on her EKG from 08/17/2023.) <Herminia Lewis MD - Last Filed: 05/27/24 19:11> Prior ECG tracings: available for review <Herminia Lewis MD - Last Filed: 05/27/24 19:11> Discharge Plan Discharge Clinical Impression: Cellulitis, Acute hyperkalemia, Acute kidney injury superimposed on chronic kidney disease <Herminia Gotti MD - Last Filed: 05/28/24 10:26> Condition: Stable <Herminia Gotti MD - Last Filed: 05/28/24 10:26> Oxygen: Yes <Herminia Gotti MD - Last Filed: 05/28/24 10:26> Yes <Herminia Lewis MD - Last Filed: 05/27/24 19:11> Oxygen Delivery Method: Nasal Cannula <Herminia Gotti MD - Last Filed: 05/28/24 10:26> Nasal Cannula <Herminia Lewis MD - Last Filed: 05/27/24 19:11> Oxygen Flow Rate: 3L/min <Herminia Gotti MD - Last Filed: 05/28/24 10:26> 3L/min <Herminia Lewis MD - Last Filed: 05/27/24 19:11>
[2024-05-27 16:29] LABS: Lactate* 1.8 mmol/L (0.5-1.9)
[2024-05-27] MEDS: HYDROCODONE-ACETAMIN 5-325 MG 1 TAB PO (16:30)
[2024-05-27 16:35] LABS: Basophils Absolute Auto 0.04 K/uL (0.00-0.30); Basophils Percent Auto 0.6 % (0.0-3.0); Eosinophils Absolute Auto 0.25 K/uL (0.00-0.50); Eosinophils Percent Auto 3.8 % (0.0-7.0); Hematocrit 42.6 % (33.0-51.0); Hemoglobin* 13.3 gm/dL (12.0-16.0); Immature Granulocytes Abs Auto 0.03 K/uL (0.00-0.30); Immature Granulocytes Pct Auto 0.5 %; Lymphocytes Percent Auto 2.9 % (20-44); Mean Corpuscular HGB Conc 31 gm/dL (32-36); Mean Corpuscular Hemoglobin 31 pg (26-34); Mean Corpuscular Volume 101 fL (80-100); Monocytes Percent Auto 16.7 % (0.0-11.0); Neutrophils Percent Auto 75.5 % (42.0-72.0); Platelet Count* 227 K/uL (140-440); RDW Coefficient of Variation % 14.6 % (11.5-15.5); Red Blood Count 4.23 m/uL (4.00-5.20); White Blood Count* 6.54 K/uL (4.50-11.00)
[2024-05-27 16:37] LABS: Slide Review Reflex No
[2024-05-27] MEDS: PIPERACILLIN/TAZOBACTAM 3.375 GM in 0.9 % SODIUM CHLORIDE Mini-bag 100 ML IVPB (16:38)
[2024-05-27 16:52] LABS: Albumin* 4.1 g/dL (3.3-5.0); Chloride* 108 mmol/L (96-114); Sodium* 137 mmol/L (135-149)
[2024-05-27 16:55] LABS: Alanine Aminotransferase* 10 U/L (4-35); Alkaline Phosphatase* 106 U/L (40-150); Anion Gap 11 mEq/L (7-15); Aspartate Amino Transferase* 22 U/L (12-35); Bilirubin Direct* 0.4 mg/dL (0.0-0.5); Bilirubin Total* 0.5 mg/dL (0.1-1.5); Blood Urea Nitrogen* 76 mg/dL (7-30); Calcium* 8.7 mg/dL (8.4-10.6); Carbon Dioxide* 18 mmol/L (20-32); Creatinine* 1.5 mg/dL (0.5-1.5); Est. Creatinine Clearance* 19.34; Estimated Glomerular Filt Rate 34 ml/min; Glucose* 94 mg/dL (60-115); Total Protein* 7.4 g/dL (6.0-8.3)
[2024-05-27 16:57] LABS: INR 1.79 (0.91-1.10); Prothrombin Time 21.8 Seconds
[2024-05-27 16:58] LABS: C Reactive Protein* 3.5 mg/dL (0.5-1.0)
[2024-05-27 17:17] LABS: PCR FLU A Negative PCR FLU A (Negative); PCR FLU B Negative PCR FLU B (Negative); SARS PCR* Negative SARS-CoV-2 (Negative)
[2024-05-27] MEDS: 0.9 % SODIUM CHLORIDE 250 ml 250 ML IV (18:04)
[2024-05-27 18:05] LABS: Potassium* 6.5 mmol/L (3.6-5.1)
[2024-05-27 18:57] LABS: Creatine Kinase* < 20 U/L (41-117)
[2024-05-27] MEDS: CALCIUM GLUC 1,000MG/50 ML 1,000 MG/50 ML BAG 100 MG IVPB (18:59)
[2024-05-27] MEDS: 0.9 % SODIUM CHLORIDE 1000 ml 1,000 ML 500 ML IV (19:52)
--- NOTE | 2024-05-27 20:37 | CRLHL7_ITS ---
For Patients: As a result of the Century Cures Act, medical imaging exams and procedure reports are released immediately into your electronic medical record. You may view this report before your referring provider. If you have questions, please contact your health care provider. INDICATION: Left lower extremity erythema, pain, edema TECHNIQUE: Ultrasound venous duplex left lower extremity. Real-time man-scale (B mode 2D), color Doppler, and spectral Doppler imaging were performed with compression and augmentation. COMPARISON: None FINDINGS: Deep vein: The left common femoral, femoral, popliteal, and visualized calf veins are fully compressible, demonstrate normal color flow, and normal response to mechanical augmentation. The Duplex Doppler waveforms are normal in appearance. Superficial vein: The visualized greater saphenous and superficial veins of the leg and calf are unremarkable. Soft tissue: No masses or cysts are identified. No adenopathy is seen. IMPRESSION: 1. No sonographic evidence of acute deep venous thrombosis seen. Dictated by: Renaldo Rachel MD @ 05/27/2024 22:15:55 (Electronically Signed)
[2024-05-27] MEDS: VANCOMYCIN 1.75 GM/350 ML 1.75 GM/350 ML PIGGYBACK IVPB (21:00)
[2024-05-27 21:04] LABS: Potassium* 6.1 mmol/L (3.6-5.1)
[2024-05-27] MEDS: ACETAMINOPHEN 325 MG TABLET 975 MG PO (21:04)
[2024-05-27] MEDS: OXYCODONE 5 MG TABLET PO (21:04)
[2024-05-27] MEDS: METOPROLOL TARTRATE 25 MG TABLET PO (21:05)
[2024-05-27] MEDS: CARBIDOPA-LEVODOPA 25-100 TABLET 1 TAB PO (21:05)
[2024-05-27] MEDS: NYSTATIN CREAM 30 GM 1 APPLIC TOPICAL (21:05)
[2024-05-27] MEDS: FUROSEMIDE 10 MG/ML inj 40 MG IVP (21:28)
--- NOTE | 2024-05-27 21:29 | CRLHL7_ITS ---
For Patients: As a result of the Century Cures Act, medical imaging exams and procedure reports are released immediately into your electronic medical record. You may view this report before your referring provider. If you have questions, please contact your health care provider. Indication: Shortness of breath Technique: Single view of the chest Comparison: Chest CT a performed 08/07/2022 Findings/Impression: Findings suspicious for heart failure and pulmonary edema. Dictated by Silvestre Mackenzie MD @ 05/27/2024 10:26:40 PM (Electronically Signed)
[2024-05-27] MEDS: diphenhydrAMINE 50 MG/ML inj 25 MG IVP (21:35)
[2024-05-27] MEDS: HYDROmorphone 0.5 mg/0.5 ml inj IVP (21:38)
--- NOTE | 2024-05-27 21:46 | PM.IMHP1 ---
Assessment and Plan Assessment and plan (1) Cellulitis: Problem comment: - Acute on chronic, recurrent, left lower extremity cellulitis - Known BLE venous stasis - Admit for treatment with broad coverage including coverage for MRSA and pseudomonas: zosyn and vanco. Check MRSA nasal swab. Monitor renal function closely, stop vancomycin if MRSA screen is negative - I spoke with Dr. Ferguson from general surgery who recommended a gentle Hibaclense scrub of both legs from knees down. She would like Carmel off blood thinners and NPO after MN to attempt debridement if necessary tomorrow. Status: Acute (2) Venous stasis ulcers of both lower extremities: Problem comment: - Severe - Followed by Navdeep Peña MD - Per [facility], she was wearing compression wraps and dressings, but these were discontinued due to concern of poor arterial blood flow - No previous rest pain or claudication Status: Acute (3) Acute respiratory distress: Problem comment: - Has known chronic diastolic heart failure - Received IVF for dehydration and developed acute pulmonary edema. Diuresing. Status: Acute (4) Acute hyperkalemia: Problem comment: - Patient takes potassium supplement and losartan at home. I have held both of these - K was 7 on admission, but is down to 6.1 after IVF. EKG is okay, no peaked Twaves. Calcium gluconate given in ER. Will hold off on further IVF as patient is becoming volume overloaded and is SOB. Give furosemide, which will help with K excretion and pulmonary edema. Monitor on cardiac telemetry and continuous pulse ox. Renal diet. Since she has no concerning findings associated with hyperkalemia and it is trending downward, will hold off on albuterol, insulin and glucose. Recheck K. Status: Acute (5) Acute kidney injury superimposed on chronic kidney disease: Problem comment: - baseline Cr is about 0.8 (CKD stage 4). Cr is up to 1.5 today. BUN also markedly elevated. Suspect dehydration which led to ARF and hyperkalemia. Was given IVF in ER. K trending down as above. Patient is now SOB with pulm edema on CXR. Giving lasix for acute pulm edema and hyperkalemia. Recheck Cr in am. Status: Acute (6) Diastolic heart failure with preserved ejection fraction: Problem comment: - chronic, NYHA class 3. weight goal: 97 kg - ECHO 06/2023 demonstrates worsening degree of , enlarging left atrium, moderate TR, severely increased pulmonary hypertension. These changes are new when compared to an echocardiogram in 2022. Final Impressions: 1. Normal LV size, moderately increased wall thickness, normal global systolic function with an estimated EF of 60 - 65%. 2. Right ventricular cavity size is mildly enlarged, global systolic RV function is normal. 3. The aortic valve is trileaflet and calcified, moderate stenosis and mild regurgitation. The aortic valve peak velocity is 2.9 m/s, the peak gradient is 34 mmHg, and the mean gradient is 19 mmHg. The aortic valve area is 0.95 cm?? with a dimensionless index of 0.29. The stroke volume index is 31.4 ml/m??. 4. The mitral valve is sclerotic, mild mitral regurgitation. 5. Mitral stenosis with mildly increased mean gradient of 3.9 mmHg at a heart rate of 60. 6. Mild-moderate tricuspid regurgitation. 7. Severely enlarged left atrium. 8. Dilated coronary sinus. 9. Severely increased estimated pulmonary pressures by tricuspid regurgitation velocity and right atrial pressure (51 mmHg plus RAP). [facility] [place] Cardiology consult was completed 06/16/2023-euvolemic status, oxygen supplementation necessary to prevent recurrent hospitalizations and exacerbations of CHF. Status: Chronic (7) Atrial fibrillation: Problem comment: - Rate controlled with Metoprolol, Anticoagulated with warfarin with INR goal of 2-3 - hold anticoagulation for tonight due to possible debridement in am. - noted to have intermittent bradycardia on telemetry 08/18/23 Status: Chronic (8) Essential hypertension: Problem comment: - Hold losartan due to hyperkalemia. Continue metoprolol. Monitor. Status: Chronic (9) Pulmonary hypertension: Problem comment: - noted on TTE 06/23 with pulmonary artery pressure 51mmHG+RAP with moderate tricuspid valve regurgitation - CT 08/05/23 and 08/17/23 exhibit mild bibasilar interlobular septal thickening likely representing superimposed mild pulmonary edema Status: Chronic (10) Aortic stenosis: Problem comment: - gradient increasing from 6720-1177 Status: Chronic (11) Obstructive sleep apnea: Problem comment: - Moderately severe with apnea-hypopnea index of 55 - Non compliant with CPAP. Likely causing some chronic hypoxia without dyspnea Status: Chronic (12) Warfarin anticoagulation: Problem comment: - as above (afib) Status: Chronic (13) Subtherapeutic international normalized ratio (INR): Problem comment: - at risk for DVT, which may have caused increased pain and erythema. Check US for DVT (this is negative as above) Status: Acute Total Time Spent Total Time Spent: Time spent: Today I spent 75 minutes seeing the patient, discussing the patient with ER staff, reviewing Expanse and EPIC notes/diagnostics, discussing the care plan with our care team that includes social work, PT/OT, pharmacy, RT, penitentiary and documenting my impressions and plan in the medical record. MEDICAL NECESSITY FOR HOSPITALIZATION Anticipated midnights in the hospital: 2-3 Admitting diagnosis: Left lower extremity cellulitis, ulcers, hyperkalemia, ARF, dehydration Risk of morbidity and mortality: high Acuity is characterized as high and reflected in: The patient has known aortic stenosis, pulmonary HTN, atrial fibrillation, and diastolic heart failure with previous acute respiratory failure due to acute pulmonary edema. She also has chronic kidney disease, chronic ulcers of the legs and buttocks as well as known venous stasis. These comorbidities specifically would increase the risk during treatment and potentially prolong treatment length. This patient will require hospital services as outlined in the assessment and plan in order to stabilize and be safely discharged to a lower level of care. Because of the risk and acuity as described above, this patient cannot be managed at a lower level of care. LENGTH OF STAY: 2 IP ? Anticipated LOS>2 midnights due to acuity of clinical presentation requiring inpatient level of care Hospitalist- H&P: HPI History of Present Illness Time Seen by Provider: 17:45 Date Seen: 05/27/24 Chief complaint: Cellulitis Lt leg Narrative: Carmel Chang is a 88 year old female with a h/o , pulmonary HTN, afib on chronic anticoagulation with warfarin, chronic lower extremity venous stasis ulcers, CRISTY, HTN, diastolic HF, and recurrent cellulitis of the LLE who has been following in wound clinic for chronic LLE wounds which were noted to be worse when her home health nurse visited today. In the wound clinic notes, it is stated that she has been missing some appointments. It is not clear if these were canceled by her or her facility (where she lives independently). She has had a deterioration of her wounds and, according to her, was recently placed on a TID oral antibiotic for a week. She does not know which antibiotic. The wound care note mentions keflex, but it's not clear if a prescription was sent. Due to recent deterioration of wounds as documented by the wound care clinic, she was referred to [facility]. She has not yet had that appointment. Is unclear if it is scheduled. Carmel has noted increasing pain in her bilateral LEs over the past few weeks, especially in the last few days. She denies fevers. She says her leg wounds have been very weepy. She also has intermittent wounds on her buttocks of which she says wound clinic was aware. I do not see these mentioned in the most recent note. Carmel notes she sometimes finds spots of blood from the buttock wounds on her underwear. Review of Systems Status of ROS: Reports: 10 or more systems reviewed and unremarkable except as noted in History and below [facility] Medical History (Updated 05/27/24 @ 23:44 by Opal Mcrae MD) Right upper lobe pneumonia ?J18.9 - Pneumonia, unspecified organism (ICD-10) Chronic hypoxic respiratory failure, on home oxygen therapy ?J96.11 - Chronic respiratory failure with hypoxia (ICD-10) ?Z99.81 - Dependence on supplemental oxygen (ICD-10) Tricuspid valve regurgitation ?I07.1 - Rheumatic tricuspid insufficiency (ICD-10) Diastolic heart failure with preserved ejection fraction ?I50.30 - Unspecified diastolic (congestive) heart failure (ICD-10) Pulmonary hypertension ?I27.20 - Pulmonary hypertension, unspecified (ICD-10) Atrial fibrillation ?I48.91 - Unspecified atrial fibrillation (ICD-10) Cellulitis ?L03.90 - Cellulitis, unspecified (ICD-10) Obstructive sleep apnea ?G47.33 - Obstructive sleep apnea (adult) (pediatric) (ICD-10) Physical debility ?R53.81 - Other malaise (ICD-10) Essential hypertension ?I10 - Essential (primary) hypertension (ICD-10) Venous stasis ulcers of both lower extremities ?I83.019 - Varicose veins of right lower extremity with ulcer of unspecified site (ICD-10) ?I83.029 - Varicose veins of left lower extremity with ulcer of unspecified site (ICD-10) ?L97.919 - Non-pressure chronic ulcer of unspecified part of right lower leg with unspecified severity (ICD-10) ?L97.929 - Non-pressure chronic ulcer of unspecified part of left lower leg with unspecified severity (ICD-10) POLST (Physician Orders for Life-Sustaining Treatment) ?Z78.9 - Other specified health status (ICD-10) Aortic stenosis ?I35.0 - Nonrheumatic aortic (valve) stenosis (ICD-10) Warfarin anticoagulation ?Z79.01 - skilled nursing (current) use of anticoagulants (ICD-10) Parkinson disease ?G20 - Parkinson's disease (ICD-10) Lymphedema ?I89.0 - Lymphedema, not elsewhere classified (ICD-10) Chronic pain ?G89.29 - Other chronic pain (ICD-10) Cellulitis of left lower leg ?L03.116 - Cellulitis of left lower limb (ICD-10) Morbid obesity ?E66.01 - Morbid (severe) obesity due to excess calories (ICD-10) Fracture of rib ?S22.39XA - Fracture of one rib, unspecified side, initial encounter for closed fracture (ICD-10) Physical deconditioning ?R53.81 - Other malaise (ICD-10) At risk for falls ?Z91.81 - History of falling (ICD-10) Unstable gait ?R26.81 - Unsteadiness on feet (ICD-10) Opioid dependence ?F11.20 - Opioid dependence, uncomplicated (ICD-10) Chronic atrial fibrillation ?I48.20 - Chronic atrial fibrillation, unspecified (ICD-10) Depression ?F32.A - Depression, unspecified (ICD-10) Generalized OA ?M15.9 - Polyosteoarthritis, unspecified (ICD-10) Durable power of assistant county attorney in chart Health care directive on file ?Z78.9 - Other specified health status (ICD-10) Closed right ankle fracture ?S82.891A - Other fracture of right lower leg, initial encounter for closed fracture (ICD-10) Osteoarthritis of right shoulder ?M19.011 - Primary osteoarthritis, right shoulder (ICD-10) Osteoarthritis of left shoulder ?M19.012 - Primary osteoarthritis, left shoulder (ICD-10) Right rotator cuff tear arthropathy ?M75.101 - Unspecified rotator cuff tear or rupture of right shoulder, not specified as traumatic (ICD-10) ?M12.811 - Other specific arthropathies, not elsewhere classified, right shoulder (ICD-10) Osteoarthritis of left knee ?M17.12 - Unilateral primary osteoarthritis, left knee (ICD-10) Ulcer of lower extremity ?L97.909 - Non-pressure chronic ulcer of unspecified part of unspecified lower leg with unspecified severity (ICD-10) Cellulitis of leg ?L03.119 - Cellulitis of unspecified part of limb (ICD-10) Surgical History H/O excision of mass (09/21/00) ?Z98.890 - Other specified postprocedural states (ICD-10) 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 Lives at [place], [place]. No children. Nephew, Michi Chang, is her POA ([phone]). Requests DNR/DNI resuscitation status. What is your current living situation?: I presently have a place to live Problems where you live: no known problems Problems where you live details: n/a In the past 12 months, utilities in danger of being shut off: no In past 12 months, lack of transportation kept you from medical appts, meetings, work, or getting things needed for daily living: no In the past 12 mos, have been you worried that your food would run out before you had money to buy more?: never true In the past 12 mos, the food you bought just didn't last and you didn't have money to buy more?: never true Highest level of school completed/degree received: Associate degree: academic program Smoking Status: Former smoker What tobacco products do you use: cigarettes Smoking quit date/years: >15 years ago Do you use any of these nicotine containing products: None Second hand tobacco smoke exposure: No Non-prescribed substance use: denies use Caffeine: Yes How often does anyone, including family, friends and others, physically hurt you: never How often does anyone, including family, friends and others, insult or talk down to you: never How often does anyone, including family, friends and others, threaten you with harm: never How often does anyone, including family, friends and others, scream or curse at you: never service: No Meds Home Medications and Allergies Home Medications ?Medication ?Instructions ?Recorded ?Confirmed ?Type carbidopa 25 mg-levodopa 100 mg 1 tab PO TID 08/07/22 05/27/24 History tablet fluoxetine 10 mg capsule 30 mg PO DAILY 05/19/23 05/27/24 History furosemide 20 mg tablet 60 mg PO DAILY 05/19/23 05/27/24 History warfarin 3 mg tablet 3 mg PO 5XW 05/19/23 05/27/24 History acetaminophen 325 mg tablet 975 mg PO TID 06/15/23 05/27/24 History aluminum-mag hydroxide-simethicone 30 ml PO QID PRN 06/15/23 05/27/24 History 200 mg-200 mg-20 mg/5 mL oral susp (Advanced Antacid-Antigas) bisacodyl 10 mg rectal suppository 10 mg DC DAILY PRN 06/15/23 05/27/24 History (Dulcolax (bisacodyl)) loperamide 2 mg tablet (Imodium 2 mg PO PRN PRN 06/15/23 05/27/24 History A-D) magnesium hydroxide 400 mg/5 mL 30 ml PO Q48H PRN 06/15/23 05/27/24 History oral suspension (Milk of Magnesia) warfarin 4 mg tablet 2 mg PO .Thursday06/15/23 05/27/24 History guaifenesin 600 mg tablet, 600 mg PO BID 08/06/23 05/27/24 History extended release 12 hr (Mucus Relief ER) potassium chloride 10 mEq 30 meq PO DAILY 08/18/23 05/27/24 History tablet,extended release(part/cryst) oxycodone 5 mg tablet 5 mg PO Q6H 05/27/24 05/27/24 History Home Medication Comments: She does not know her medications as these are set up by her home health nurse. Allergies Allergy/AdvReac Type Severity Reaction Status Date / Time hydrochlorothiazide Allergy Verified 05/27/24 14:49 Sulfa (Sulfonamide Allergy Rash Verified 05/27/24 14:49 Antibiotics) Exam Narrative: Exam Narrative: General: No acute distress. Awake alert oriented x3. HEENT: Normocephalic atraumatic, pupils equally round and reactive to light and accommodation. Oropharynx clear. Mucous membranes are moist. No cervical lymphadenopathy, thyromegaly or carotid bruits. No JVD. Cardiovascular: Regular rate and rhythm. No murmurs, gallops, or rubs. Chest: No increased work of breathing. Clear to auscultation bilaterally. No crackles or wheezes. Abdomen: Bowel sounds present. Soft, nondistended, nontender. No hepatosplenomegaly or masses. Groin and buttocks: Moist, erythematous, edematous skin folds consistent with candidal infection. 2 mm x 4 mm stage II pressure ulcer of the right buttock without drainage. Both posterior upper thighs are purplish and swollen, blanchable on the left upper posterior thigh there is an irregular excoriation like stage II pressure ulcer approximately 1 mm x 3 mm. Extremities: Large areas of flat ulcers that are irregular and there are multiple of these on all aspects circumferentially around the left lower extremity. There are no ulcers of the right lower extremity noted. Left foot and ankle are erythematous and edematous. The ulcers are tender to touch, the foot is not. There is adherent wound packing in the ulcers which I am unable to remove at this time. These are dry and without weeping. Skin: As above. No jaundice, no pallor, no rashes. Const: Vital Signs, click to edit/add: Vital Signs - 24 hr 05/27/24 14:41 05/27/24 17:24 05/27/24 17:26 Temperature 97.0 F L Pulse Rate [Pulse Oximeter] 63 Respiratory Rate 16 18 23 Blood Pressure 157/85 H Blood Pressure [Ri ght Upper Arm] 142/70 H Pulse Oximetry 95 Oxygen Delivery Me thod Room Air 05/27/24 17:31 05/27/24 17:35 05/27/24 18:00 Temperature Pulse Rate [Pulse Oximeter] Respiratory Rate 19 14 Blood Pressure 118/74 Blood Pressure [Ri ght Upper Arm] Pulse Oximetry Oxygen Delivery Me thod 05/27/24 18:04 05/27/24 20:14 Temperature 97.0 F L Pulse Rate [Pulse Oximeter] 65 Respiratory Rate 19 19 Blood Pressure 145/73 H [facility] 135/68 Pulse Oximetry 95 Oxygen Delivery Me thod Room Air Hospitalist - H&P: Result Labs Labs: Short CBC 05/27/24 Range/Units 16:15 WBC 6.54 (4.50-11.00) K/uL Hgb 13.3 (12.0-16.0) gm/dL Hct 42.6 (33.0-51.0) % Plt Count 227 (140-440) K/uL BMP 05/27/24 05/27/24 05/27/24 16:15 17:39 20:36 Sodium 137 Potassium 7.0 H* 6.5 H* 6.1 H* Chloride 108 Carbon Dioxide 18 L BUN 76 H Creatinine 1.5 Glucose 94 Calcium 8.7 Cardiac Enzymes 05/27/24 Range/Units 17:39 Total Creatine Kinase < 20 L (41-117) U/L Liver Function 05/27/24 Range/Units 16:15 Total Bilirubin 0.5 (0.1-1.5) mg/dL Direct Bilirubin 0.4 (0.0-0.5) mg/dL AST 22 (12-35) U/L ALT 10 (4-35) U/L Alkaline Phosphatase 106 (40-150) U/L Albumin 4.1 (3.3-5.0) g/dL 05/27/2024 5:35 p.m. EKG: Atrial fibrillation, 82 beats per minute, cannot rule out anterior infarct, age undetermined. 05/27/2024 9:25 p.m. EKG: Atrial fibrillation, 98 beats per minute, cannot rule out anterior infarct, age undetermined. Ordering Physician: Opal Mcrae M.D. Date of Service: 05/27/24 Procedure(s): XR chest 1V portable Accession Number(s): [id number] cc: Opal Mcrae M.D.; Sofia Guerrero M.D.~ For Patients: As a result of the Century Cures Act, medical imaging exams and procedure reports are released immediately into your electronic medical record. You may view this report before your referring provider. If you have questions, please contact your health care provider. Indication: Shortness of breath Technique: Single view of the chest Comparison: Chest CT a performed 08/07/2022 Findings/Impression: Findings suspicious for heart failure and pulmonary edema. Dictated by Silvestre Mackenzie MD @ 05/27/2024 10:26:40 PM (Electronically Signed) Ordering Physician: Opal Mcrae M.D. Date of Service: 05/27/24 Procedure(s): US venous LE LT Accession Number(s): [id number] cc: Opal Mcrae M.D.; Sofia Guerrero M.D.~ For Patients: As a result of the Cures Act, medical imaging exams and procedure reports are released immediately into your electronic medical record. You may view this report before your referring provider. If you have questions, please contact your health care provider. INDICATION: Left lower extremity erythema, pain, edema TECHNIQUE: Ultrasound venous duplex left lower extremity. Real-time man-scale (B mode 2D), color Doppler, and spectral Doppler imaging were performed with compression and augmentation. COMPARISON: None FINDINGS: Deep vein: The left common femoral, femoral, popliteal, and visualized calf veins are fully compressible, demonstrate normal color flow, and normal response to mechanical augmentation. The Duplex Doppler waveforms are normal in appearance. Superficial vein: The visualized greater saphenous and superficial veins of the leg and calf are unremarkable. Soft tissue: No masses or cysts are identified. No adenopathy is seen. IMPRESSION: 1. No sonographic evidence of acute deep venous thrombosis seen. Dictated by: Renaldo Rachel MD @ 05/27/2024 22:15:55 (Electronically Signed)
[2024-05-27] MEDS: PIPERACILLIN/TAZOBACTAM 2.25 GM in 0.9 % SODIUM CHLORIDE Mini-bag 100 ML IVPB (23:30)
--- NOTE | 2024-05-27 23:51 | PC.NURSE ---
pleasant and cooperative. incont, external cath draining pale yellow urine, 700mL out since admin to floor. pt became SOB 1.5hr after admin to floor, called in hospitalist. IV lasix given for CHF, IV Benadryl given as pt became itchy and rashes appeared on inner thighs shortly after admin of IV Vanco. Placed on 2L O2 via NC. Shortly after admin of medication pt felt relief. Gave IV dilaudid for c/o pain during LE US. pt fell asleep, remained on 2L NC, sats low 90s. Performed would care with NOC RN, removed gauze packing likely from home wound nurse, slough noted, foul odor noted. covered with abd pad and wrapped in kerlix. BLE elevated. Gen surgery to consult in AM, NPO at midnight. Tele - AFib.
[2024-05-27 23:59] LABS: Potassium* 5.2 mmol/L (3.6-5.1)
[2024-05-28] VITALS (14 sets, daily range): BP systolic 73–103; BP diastolic 44–81; PULSE 71–89; RESP 16–20; TEMP 36.5–36.8; O2SAT 92–96
[2024-05-28] MEDS: PIPERACILLIN/TAZOBACTAM 2.25 GM in 0.9 % SODIUM CHLORIDE Mini-bag 100 ML IVPB ×2 (03:38→10:20)
[2024-05-28] MEDS: MIDODRINE HCL 5 MG TABLET 10 MG PO (03:41)
--- NOTE | 2024-05-28 04:10 | W.PM.CROSSCO ---
Subjective Subjective Time Seen by Provider: 04:10 Date Seen: 05/28/24 Principal diagnosis: Hypotension Interval history: Hospitalist service was consulted by RN for patient developed hypotension and lethargy. Carmel Casillas is a 88-year-old female with complex past medical history including CHF with preserved EF, moderate aortic stenosis on an echo about a year ago, pulmonary hypertension, A-fib on anticoagulation who presented emergency department with left leg ulcer/cellulitis, ELYSE and hyperkalemia with potassium of 7. Yesterday evening patient developed hypotension for which she was given 500 cc bolus by primary care team. Patient subsequently then developed shortness of breath and hypoxia. She was given Lasix 40 mg IV. Overnight patient developed hypotension with systolic blood pressure in 70s. She was still on 3 L oxygen at the time. However due to her underlying heart failure, aortic stenosis, it was decided to hold off fluids. She was given one-time dose of midodrine. Her blood pressure did improve. She was seen on camera using [employer] device. She was noticed to be more lethargic. She was still responsive to verbal stimuli. Patient has DNR/DNI CODE STATUS. Her POA Michi was contacted by me over the phone. He agreed to proceed with vasopressors if needed and for transfer to [place] if needed. Given moderate to severe aortic stenosis, pulmonary hypertension, CHF and other comorbidities, it was decided that patient likely will benefit from higher level of care with ongoing hypotension, with risk of septic versus cardiogenic shock with ongoing hypotension. Case was discussed with cardiology at [place]. He agreed with the recommendation to hold off fluids given that it is very difficult to get fluid balance in this patient's with heart failure and aortic stenosis. He agreed that if blood pressure remained low to start nor epi. Case was also discussed with ICU Dr. Natarajan. He also recommended that if patient needs to be on norepinephrine, then patient can be accepted to ICU otherwise they will manage in stepdown unit in [facility]. Patient was eventually accepted by hospitalist service for transfer. Currently patient is still waiting time of transfer. Objective Objective Data Details: General: Vital signs reviewed. Pt is lethargic CVS: + murmer, irregularly irregular Chest: no wheezing. Assessment and Plan Assessment and plan (1) Cellulitis: Problem comment: - Acute on chronic, recurrent, left lower extremity cellulitis - Known BLE venous stasis - Admit for treatment with broad coverage including coverage for MRSA and pseudomonas: zosyn and vanco. Check MRSA nasal swab. Monitor renal function closely, stop vancomycin if MRSA screen is negative - I spoke with Dr. Ferguson from general surgery who recommended a gentle Hibaclense scrub of both legs from knees down. She would like Carmel off blood thinners and NPO after MN to attempt debridement if necessary tomorrow. Status: Acute (2) Diastolic heart failure with preserved ejection fraction: Problem comment: - chronic, NYHA class 3. weight goal: 97 kg - ECHO 06/2023 demonstrates worsening degree of , enlarging left atrium, moderate TR, severely increased pulmonary hypertension. These changes are new when compared to an echocardiogram in 2022. Final Impressions: 1. Normal LV size, moderately increased wall thickness, normal global systolic function with an estimated EF of 60 - 65%. 2. Right ventricular cavity size is mildly enlarged, global systolic RV function is normal. 3. The aortic valve is trileaflet and calcified, moderate stenosis and mild regurgitation. The aortic valve peak velocity is 2.9 m/s, the peak gradient is 34 mmHg, and the mean gradient is 19 mmHg. The aortic valve area is 0.95 cm?? with a dimensionless index of 0.29. The stroke volume index is 31.4 ml/m??. 4. The mitral valve is sclerotic, mild mitral regurgitation. 5. Mitral stenosis with mildly increased mean gradient of 3.9 mmHg at a heart rate of 60. 6. Mild-moderate tricuspid regurgitation. 7. Severely enlarged left atrium. 8. Dilated coronary sinus. 9. Severely increased estimated pulmonary pressures by tricuspid regurgitation velocity and right atrial pressure (51 mmHg plus RAP). [facility] Cardiology consult was completed 06/16/2023-euvolemic status, oxygen supplementation necessary to prevent recurrent hospitalizations and exacerbations of CHF. Status: Chronic (3) Pulmonary hypertension: Problem comment: - noted on TTE 06/23 with pulmonary artery pressure 51mmHG+RAP with moderate tricuspid valve regurgitation - CT 08/05/23 and 08/17/23 exhibit mild bibasilar interlobular septal thickening likely representing superimposed mild pulmonary edema Status: Chronic (4) Aortic stenosis: Problem comment: - gradient increasing from 4730-5732 Status: Chronic (5) Hypotension: Status: Acute Plan Workup overnight showed white count 14.68, INR 2.06, blood gas showed VBG with pH of 7.28, pCO2 33, pO2 71, potassium 5.5, BUN 73, creatinine 1.4, glucose 121, lactate 1.0. Troponin initially 1 came back at 0.08 this morning. Patient has had previous troponin elevated to 0.06, 0.12 and 0.15. At this time patient has been accepted by hospitalist service at admit. Start on norepinephrine if MAP is less than 65 or systolic blood pressure in low 80s. Continue with broad-spectrum antibiotics. Patient will need cardiology, general surgery evaluation at [place] after transfer. Total Time Spent Total Time Spent: Critical care time including assessing patient, reviewing chart, arranging transfer, speaking to [facility] was 65 minutes.
[2024-05-28 04:17] LABS: HCO3 VBG 16 mmol/L (21-28); PCO2 VBG 33 mmHG (40-50); PO2 VBG 71.3 mmHG (25-47); pH VBG 7.284 (7.32-7.43)
[2024-05-28 04:23] LABS: Basophils Percent Auto 0.1 % (0.0-3.0); Eosinophils Percent Auto 0.3 % (0.0-7.0); Hematocrit 39.1 % (33.0-51.0); Hemoglobin* 12.2 gm/dL (12.0-16.0); Immature Granulocytes Pct Auto 1.5 %; Lymphocytes Percent Auto 0.6 % (20-44); Mean Corpuscular HGB Conc 31 gm/dL (32-36); Mean Corpuscular Hemoglobin 31 pg (26-34); Mean Corpuscular Volume 100 fL (80-100); Monocytes Percent Auto 8.6 % (0.0-11.0); Neutrophils Percent Auto 88.9 % (42.0-72.0); Platelet Count* 216 K/uL (140-440); RDW Coefficient of Variation % 14.7 % (11.5-15.5); Red Blood Count 3.91 m/uL (4.00-5.20); White Blood Count* 14.68 K/uL (4.50-11.00)
--- NOTE | 2024-05-28 04:26 | PC.NURSE ---
Shift note [id number]: Patient has been in bed throughout the shift. Wound at the left leg was dressed, ABD pad applied. At 0230, Blood pressure was low at 81/56. Subsequent repeated Bp were as well. Manual Bp cuff applied and was low as well. MD was informed through Leo and ordered midodrine 10mg stat. Bp rechecked after 30 minutes was 83/59. MD informed, reviewed patient and ordered patient to be treated a unit patient. Patient appeared confused, unable to speak with MD during telehealth assessment. Continue to feel sleepy. Has been on 3L of oxygen.
[2024-05-28 04:32] LABS: Slide Review Reflex No
[2024-05-28 04:35] LABS: Chloride* 114 mmol/L (96-114); Potassium* 5.5 mmol/L (3.6-5.1); Sodium* 137 mmol/L (135-149)
[2024-05-28 04:39] LABS: Anion Gap 9 mEq/L (7-15); Blood Urea Nitrogen* 73 mg/dL (7-30); Calcium* 8.1 mg/dL (8.4-10.6); Carbon Dioxide* 14 mmol/L (20-32); Creatinine* 1.4 mg/dL (0.5-1.5); Est. Creatinine Clearance* 20.72; Estimated Glomerular Filt Rate 37 ml/min; Glucose* 121 mg/dL (60-115); INR 2.06 (0.91-1.10); Prothrombin Time 24.3 Seconds
[2024-05-28 04:42] LABS: C Reactive Protein* 4.5 mg/dL (0.5-1.0)
[2024-05-28] MEDS: SODIUM CHLORIDE 0.9 % (FLUSH) 10 ML SYRINGE 5 ML IVF ×3 (04:42→10:20)
[2024-05-28] MEDS: HYDROmorphone 0.5 mg/0.5 ml inj IVP (06:01)
[2024-05-28 06:39] LABS: Troponin I* 0.08 ng/mL (0.01-0.04)
--- NOTE | 2024-05-28 06:49 | PC.NURSE ---
Addendum entered by Bianca Graham RN 05/28/24 06:55: NPO diet order in place which continues to be followed. Original Note: End of shift care note hours [id number]: Pt alert when spoken to and opens eyes on command. External cath in place to prevent moisture exposure. Pt afebrile and on oxygen at 3 LPM via NC in order to maintain O2 sats per order. Pt has been hypotensive and was previously given po Midodrine by previous RN. PRN Dilaudid administered after technical publications writer noted pt to be moaning- effective upon followup. Pt seen by telehealth MD prior to changing to unit status. MD contacted pt's family to discuss further treatment. Pt has since been accepted to [facility] with cardiology services following. Tele in place with A fib noted which is not a new finding as pt has hx of A fib. Dressing to LLE noted to be C/D/I. Lab updated that AM ammonia lab has been ordered. Dr. Ferguson ordered AM Troponine and has been updated with critical result. Bed alarm on and call light within reach.
[2024-05-28 07:20] LABS: Ammonia* 49.1 umol/L (13.1-30.0)
--- NOTE | 2024-05-28 08:06 | PM.DS1 ---
DS: Providers Provider Date Seen: 05/28/24 Date of admission: 05/27/24 20:37 Primary care physician: Sofia Guerrero MD Admitting Clinician: Opal Mcrae MD Consults: 05/27/24 20:37 Consult to Nutrition [CONS] Routine Comment: Reason for consult:: Pressure Ulcer Consult to Occupational Therapy [CONS] Routine Comment: Reason(s) for OT Consult:: Evaluate and Treat Any Restrictions?:: No Restrictions Consult to Physical Therapy [CONS] Routine Comment: Reason(s) for PT Consult:: Evaluate and Treat Any Restrictions?:: No Restrictions Consult to Physician [CONS] Routine Comment: Consulting Provider: Galina Ferguson Has provider been notified: Yes Consult to [employer] [CONS] Routine Comment: Reason for Consult:: Discharge Planning Needs Consult to Wound Care [CONS] Routine Comment: Consulting Provider: [facility] Attending Physician on discharge: juan diego metzger MD Date of Discharge: 08/21/23 DS: Diagnosis Discharge Diagnosis (1) Acute exacerbation of chronic heart failure: Status: Acute Problem details: -Pt developed acute CHF exacerbation, acute on chronic hypoxic respiratory failure and severe hypotension -on Oxygen N/C 3 L. -severe hypotension -patient got Lasix IV 40 mg due to development of shortness of breath 2/2 pulmonary edema -night team started midodrine (2) Acute on chronic hypoxic respiratory failure: Status: Acute Problem details: -patient got Lasix IV 40 mg due to development of shortness of breath 2/2 pulmonary edema -On Oxygen N/C 3 L/min (3) Severe hypotension: Status: Acute Problem details: -patient got Lasix IV 40 mg due to development of shortness of breath 2/2 pulmonary edema -night team started midodrine to help increase her blood pressure as it went down to SBP in the 70s (4) Cellulitis: Status: Acute Problem details: - Acute on chronic, recurrent, left lower extremity cellulitis - Known BLE venous stasis - Admit for treatment with broad coverage including coverage for MRSA and pseudomonas: zosyn and vanco. Check MRSA nasal swab. Monitor renal function closely, stop vancomycin if MRSA screen is negative - Contacted Dr. Ferguson from general surgery who recommended a gentle Hibaclense scrub of both legs from knees down. She would like Carmel off blood thinners and NPO after MN to attempt debridement if necessary tomorrow. (5) Diastolic heart failure with preserved ejection fraction: Status: Chronic Problem details: - chronic, NYHA class 3. weight goal: 97 kg - ECHO 06/2023 demonstrates worsening degree of , enlarging left atrium, moderate TR, severely increased pulmonary hypertension. These changes are new when compared to an echocardiogram in 2022. Final Impressions: 1. Normal LV size, moderately increased wall thickness, normal global systolic function with an estimated EF of 60 - 65%. 2. Right ventricular cavity size is mildly enlarged, global systolic RV function is normal. 3. The aortic valve is trileaflet and calcified, moderate stenosis and mild regurgitation. The aortic valve peak velocity is 2.9 m/s, the peak gradient is 34 mmHg, and the mean gradient is 19 mmHg. The aortic valve area is 0.95 cm?? with a dimensionless index of 0.29. The stroke volume index is 31.4 ml/m??. 4. The mitral valve is sclerotic, mild mitral regurgitation. 5. Mitral stenosis with mildly increased mean gradient of 3.9 mmHg at a heart rate of 60. 6. Mild-moderate tricuspid regurgitation. 7. Severely enlarged left atrium. 8. Dilated coronary sinus. 9. Severely increased estimated pulmonary pressures by tricuspid regurgitation velocity and right atrial pressure (51 mmHg plus RAP). [facility] Cardiology consult was completed 06/16/2023-euvolemic status, oxygen supplementation necessary to prevent recurrent hospitalizations and exacerbations of CHF. (6) Pulmonary hypertension: Status: Chronic Problem details: - noted on TTE 06/23 with pulmonary artery pressure 51mmHG+RAP with moderate tricuspid valve regurgitation - CT 08/05/23 and 08/17/23 exhibit mild bibasilar interlobular septal thickening likely representing superimposed mild pulmonary edema (7) Acute kidney injury superimposed on chronic kidney disease: Status: Acute Problem details: - baseline Cr is about 0.8 (CKD stage 4). Cr is up to 1.5 today. BUN also markedly elevated. Suspect dehydration which led to ARF and hyperkalemia. Was given IVF in ER. K trending down as above. Patient is now SOB with pulm edema on CXR. Giving lasix for acute pulm edema and hyperkalemia. Recheck Cr in am. (8) Aortic stenosis: Status: Chronic Problem details: - gradient increasing from 9095-8584 (9) History of delirium: Status: Acute (10) Acute hyperkalemia: Status: Acute Problem details: - Patient takes potassium supplement and losartan at home. I have held both of these - K was 7 on admission, but is down to 6.1 after IVF. EKG is okay, no peaked Twaves. Calcium gluconate given in ER. Will hold off on further IVF as patient is becoming volume overloaded and is SOB. Give furosemide, which will help with K excretion and pulmonary edema. Monitor on cardiac telemetry and continuous pulse ox. Renal diet. Since she has no concerning findings associated with hyperkalemia and it is trending downward, will hold off on albuterol, insulin and glucose. Recheck K. (11) Recurrent cellulitis of lower leg: Status: Acute Problem details: - Previously hospitalized 08/04-08/09/23 for LLE cellulitis, treated with Zosyn (+ azithromycin for pneumonia), then completed full course of outpatient oral Augmentin - Recurrence noted 08/17/23 with fever up to 101.2 ? fever, chills, pain in LLE - BC obtained, NGTD on 08/18 - Started on cefepime plus vancomycin 08/17/23, Vancomycin discontinued on 08/18 given negative cultures, negative MRSA swab, clinical improvement - discharged on oral Doxycycline to complete a 7 day course Outpatient follow-up with PCP for resolution. (12) Chronic hypoxic respiratory failure, on home oxygen therapy: Status: Chronic Problem details: - discharged on nighttime O2 when discharged from hospital 08/09/2023, not compliant with this at home 08/17/2023 BNP 2360, previously 7300. Weaned from O2 during the day. Encouraged to be compliant with home oxygen at night discussing overall benefits. (13) Atrial fibrillation: Status: Chronic Problem details: - Rate controlled with Metoprolol, Anticoagulated with warfarin with INR goal of 2-3 - hold anticoagulation for tonight due to possible debridement in am. - noted to have intermittent bradycardia on telemetry 08/18/23 (14) Venous stasis ulcers of both lower extremities: Status: Chronic Problem details: - Severe - Followed by Navdeep Peña MD - [facility], she was wearing compression wraps and dressings, but these were discontinued due to concern of poor arterial blood flow - No previous rest pain or claudication (15) Obstructive sleep apnea: Status: Chronic Problem details: - Moderately severe with apnea-hypopnea index of 55 - Non compliant with CPAP. Likely causing some chronic hypoxia without dyspnea (16) Parkinson disease: Status: Chronic Problem details: - mildly progressive Parkinson's disease, treated with Sinemet - follows with Dr. Scott of Neurology (17) Physical debility: Status: Chronic Problem details: - Continue with PT/OT [facility]UME [facility], CORRECTION, WOUND CARES, PT, OT UPON RETURN TO [facility] (18) Warfarin anticoagulation: Status: Chronic Problem details: - as above (afib) (19) Depression: Status: Chronic Problem details: - Prozac (bereavement related). Suspect anxiety with this. May be complicating episodic confusion. (20) Lymphadenopathy: Status: Chronic Problem details: - Incidental finding on 08/16 CT: pre-tracheal lymphadenopathy, multiple prominent bihilar in left prevascular lymph nodes - per formal radiology read: f/u imaging after appropriate therapy to evaluate for interval change as underlying malignancy/metastatic disease not entirely excluded (21) Thoracic vertebral fracture: Status: Acute Problem details: - incidentally noted on admission imaging 08/16, does endorse some pain - added Lidocaine patch and Calcitonin nasal spray 08/17, Calcitonin d/c'd on 08/19 - plan to discharge home on Lidocaine patch + home doses of APAP and Oxycodone DS: Summary Hospital Course Hospital Course: Carmel Casillas is a 88-year-old female with complex past medical history including CHF with preserved EF, moderate aortic stenosis on an echo about a year ago, pulmonary hypertension, A-fib on anticoagulation who presented emergency department with left leg ulcer/cellulitis, ELYSE and hyperkalemia with potassium of 7. On the same PM of admission, patient developed hypotension for which she was given 500 cc bolus. Patient subsequently then developed shortness of breath and hypoxia. She was given Lasix 40 mg IV. Overnight patient developed hypotension with systolic blood pressure in 70s. She was still on 3 L oxygen at the time. However due to her underlying heart failure, aortic stenosis, it was decided to hold off fluids. She was given one-time dose of midodrine. Patient has DNR/DNI CODE STATUS. Her POA Michi was contacted by the night hospitalist over the phone. He agreed to proceed with vasopressors if needed and for transfer to [facility] if needed. Given moderate to severe aortic stenosis, pulmonary hypertension, CHF and other comorbidities, it was decided that patient likely will benefit from higher level of care with ongoing hypotension, with risk of septic versus cardiogenic shock with ongoing hypotension. Case was discussed with cardiology at [place]. He agreed with the recommendation to hold off fluids given that it is very difficult to get fluid balance in this patient's with heart failure and aortic stenosis. He agreed that if blood pressure remained low to start nor epi. Case was also discussed with ICU Dr. Natarajan. He also recommended that if patient needs to be on norepinephrine, then patient can be accepted to ICU otherwise they will manage in step[facility] unit [facility]. Patient was eventually accepted by hospitalist service for transfer. Status at Discharge Functional status at discharge: bed bound Overall status at discharge: patient is not back to baseline Time Spent with Patient Time attestation: Total time spent providing and/or coordinating discharge services: 55 min Time spent: Greater than 30 minutes Exam Narrative: Exam Narrative: Physical exam GENERAL: Sleepy (just got opioids), Patient answering simple questions and following simple commands HEAD AND NECK: Atraumatic, normocephalic CARDIOVASCULAR: Irregularly irregular. Harsh systolic murmur. RESPIRATORY: Good air entry B/L. Crackles. NEUROLOGY: Patient confused, but answering simple questions and following simple commands. No focal weakness upon my exam. EXTremities: Large areas of flat ulcers that are irregular and there are multiple of these on all aspects circumferentially around the left lower extremity. There are no ulcers of the right lower extremity noted. Left foot and ankle are erythematous and edematous. The ulcers are tender to touch, the foot is not. There is adherent wound packing in the ulcers which I am unable to remove at this time. These are dry and without weeping. Const: Vital Signs, click to edit/add: Vital Signs - 24 hr 05/27/24 14:41 05/27/24 17:24 05/27/24 17:26 Temperature 97.0 F L Pulse Rate Pulse Rate [Pulse Oximeter] 63 Respiratory Rate 16 18 23 Blood Pressure 157/85 H Blood Pressure [Ri ght Arm] Blood Pressure [Ri ght Upper Arm] 142/70 H Pulse Oximetry 95 Oxygen Delivery Me thod Room Air Oxygen Flow Rate 05/27/24 17:31 05/27/24 17:35 05/27/24 18:00 Temperature Pulse Rate Pulse Rate [Pulse Oximeter] Respiratory Rate 19 14 Blood Pressure 118/74 Blood Pressure [Ri ght Arm] Blood Pressure [Ri ght Upper Arm] Pulse Oximetry Oxygen Delivery Me thod Oxygen Flow Rate 05/27/24 18:04 05/27/24 20:00 05/27/24 20:14 Temperature 98 F 97.0 F L Pulse Rate Pulse Rate [Pulse Oximeter] 81 65 Respiratory Rate 19 20 19 Blood Pressure 145/73 H Blood Pressure [Ri ght Arm] 132/67 Blood Pressure [Ri ght Upper Arm] 135/68 Pulse Oximetry 96 95 Oxygen Delivery Me thod Room Air Room Air Oxygen Flow Rate 05/27/24 20:18 05/27/24 20:26 05/27/24 21:17 Temperature 98.5 F Pulse Rate 69 Pulse Rate [Pulse Oximeter] 99 Respiratory Rate 19 28 H Blood Pressure Blood Pressure [Ri ght Arm] 102/90 H Blood Pressure [Ri ght Upper Arm] Pulse Oximetry 95 89 Oxygen Delivery Me thod Room Air Room Air Oxygen Flow Rate 05/27/24 21:22 05/27/24 23:00 05/27/24 23:00 Temperature Pulse Rate 96 Pulse Rate [Pulse Oximeter] 98 Respiratory Rate Blood Pressure Blood Pressure [Ri ght Arm] 107/69 Blood Pressure [Ri ght Upper Arm] Pulse Oximetry 94 93 Oxygen Delivery Me thod Nasal Cannula Oxygen Flow Rate 2 05/27/24 23:00 05/27/24 23:00 05/28/24 00:48 Temperature 98.3 F Pulse Rate Pulse Rate [Pulse Oximeter] 96 Respiratory Rate 19 19 Blood Pressure Blood Pressure [Ri ght Arm] 99/74 Blood Pressure [Ri ght Upper Arm] Pulse Oximetry 95 93 92 Oxygen Delivery Me thod Room Air Room Air Nasal Cannula Oxygen Flow Rate 3 05/28/24 02:57 05/28/24 02:59 05/28/24 04:07 Temperature 97.7 F Pulse Rate Pulse Rate [Pulse Oximeter] 89 Respiratory Rate 19 Blood Pressure Blood Pressure [Ri ght Arm] 81/44 L 73/59 L 83/50 L Blood Pressure [Ri ght Upper Arm] Pulse Oximetry 93 Oxygen Delivery Me thod Nasal Cannula Oxygen Flow Rate 3 05/28/24 04:36 05/28/24 06:05 05/28/24 06:16 Temperature 98.2 F 97.8 F Pulse Rate Pulse Rate [Pulse Oximeter] 78 79 Respiratory Rate 16 20 Blood Pressure Blood Pressure [Ri ght Arm] 89/57 L 100/56 L 88/48 L Blood Pressure [Ri ght Upper Arm] Pulse Oximetry 92 93 Oxygen Delivery Me thod Nasal Cannula Nasal Cannula Oxygen Flow Rate 3 3 05/28/24 06:45 Temperature Pulse Rate Pulse Rate [Pulse Oximeter] Respiratory Rate Blood Pressure Blood Pressure [Ri ght Arm] 93/60 Blood Pressure [Ri ght Upper Arm] Pulse Oximetry Oxygen Delivery Me thod Oxygen Flow Rate DS: Data Data Completed and Pending Completed studies during hospitalization: Procedures Labs on day of discharge: Labs from last 24 hours 05/28/24 05/28/24 05/27/24 04:14 04:12 23:42 WBC 14.68 H RBC 3.91 L Hgb 12.2 Hct 39.1 MCV 100 MCH 31 MCHC 31 L RDW Coeff of Mandeep 14.7 Plt Count 216 Neut % (Auto) 88.9 H Lymph % (Auto) 0.6 L [place] % (Auto) 8.6 Eos % (Auto) 0.3 Baso % (Auto) 0.1 Neut # (Auto) 13.10 H Lymph # (Auto) 0.10 L [place] # (Auto) 1.30 H Eos # (Auto) 0.00 Baso # (Auto) 0.00 Abs Immat Gran (auto) 0.20 Imm/Tot Granulo (auto) 1.5 INR 2.06 H VBG pH 7.284 L VBG pCO2 33 L VBG pO2 71.3 H VBG HCO3 16 L Sodium 137 Potassium 5.5 H 5.2 H Chloride 114 Carbon Dioxide 14 L Anion Gap 9 BUN 73 H Creatinine 1.4 Estimated Creat Clear 20.72 Estimated GFR 37 Glucose 121 H Lactate 1.0 Calcium 8.1 L Total Bilirubin Direct Bilirubin AST ALT Alkaline Phosphatase Ammonia 49.1 H Total Creatine Kinase Troponin I 0.08 H* C-Reactive Protein 4.5 H Total Protein Albumin SARS-CoV-2 (PCR) Influenza Type A (PCR) Influenza Type B (PCR) Lab Acknowledgement 05/27/24 05/27/24 05/27/24 20:36 18:28 17:39 WBC RBC Hgb Hct MCV MCH MCHC RDW Coeff of Mandeep Plt Count Neut % (Auto) Lymph % (Auto) [place] % (Auto) Eos % (Auto) Baso % (Auto) Neut # (Auto) Lymph # (Auto) [place] # (Auto) Eos # (Auto) Baso # (Auto) Abs Immat Gran (auto) Imm/Tot Granulo (auto) INR VBG pH VBG pCO2 VBG pO2 VBG HCO3 Sodium Potassium 6.1 H* 6.5 H* Chloride Carbon Dioxide Anion Gap BUN Creatinine Estimated Creat Clear Estimated GFR Glucose Lactate Calcium Total Bilirubin Direct Bilirubin AST ALT Alkaline Phosphatase Ammonia Total Creatine Kinase < 20 L Troponin I C-Reactive Protein Total Protein Albumin SARS-CoV-2 (PCR) Influenza Type A (PCR) Influenza Type B (PCR) Lab Acknowledgement Test Added 05/27/24 16:15 WBC 6.54 RBC 4.23 Hgb 13.3 Hct 42.6 MCV 101 H MCH 31 MCHC 31 L RDW Coeff of Mandeep 14.6 Plt Count 227 Neut % (Auto) 75.5 H Lymph % (Auto) 2.9 L [place] % (Auto) 16.7 H Eos % (Auto) 3.8 Baso % (Auto) 0.6 Neut # (Auto) 4.90 Lymph # (Auto) 0.20 L [place] # (Auto) 1.10 H Eos # (Auto) 0.25 Baso # (Auto) 0.04 Abs Immat Gran (auto) 0.03 Imm/Tot Granulo (auto) 0.5 INR 1.79 H VBG pH VBG pCO2 VBG pO2 VBG HCO3 Sodium 137 Potassium 7.0 H* Chloride 108 Carbon Dioxide 18 L Anion Gap 11 BUN 76 H Creatinine 1.5 Estimated Creat Clear 19.34 Estimated GFR 34 Glucose 94 Lactate 1.8 Calcium 8.7 Total Bilirubin 0.5 Direct Bilirubin 0.4 AST 22 ALT 10 Alkaline Phosphatase 106 Ammonia Total Creatine Kinase Troponin I C-Reactive Protein 3.5 H Total Protein 7.4 Albumin 4.1 SARS-CoV-2 (PCR) Negative SARS-CoV-2 Influenza Type A (PCR) Negative PCR FLU A Influenza Type B (PCR) Negative PCR FLU B Lab Acknowledgement Imaging Chest x-ray: Attestation: I have reviewed the pertinent imaging results. My impression: Pulmonary edema Radiologist's impression: Indication: Shortness of breath Technique: Single view of the chest Comparison: Chest CT a performed 08/07/2022 Findings/Impression: Findings suspicious for heart failure and pulmonary edema. Dictated by Silvestre Mackenzie MD @ 05/27/2024 10:26:40 PM (Electronically Signed) Venous US: Radiologist's impression: Ordering Physician: Opal Mcrae M.D. Date of Service: 05/27/24 Procedure(s): US venous LE LT Accession Number(s): [id number] cc: Opal Mcrae M.D.; Sofia Guerrero M.D.~ For Patients: As a result of the Cures Act, medical imaging exams and procedure reports are released immediately into your electronic medical record. You may view this report before your referring provider. If you have questions, please contact your health care provider. INDICATION: Left lower extremity erythema, pain, edema TECHNIQUE: Ultrasound venous duplex left lower extremity. Real-time man-scale (B mode 2D), color Doppler, and spectral Doppler imaging were performed with compression and augmentation. COMPARISON: None FINDINGS: Deep vein: The left common femoral, femoral, popliteal, and visualized calf veins are fully compressible, demonstrate normal color flow, and normal response to mechanical augmentation. The Duplex Doppler waveforms are normal in appearance. Superficial vein: The visualized greater saphenous and superficial veins of the leg and calf are unremarkable. Soft tissue: No masses or cysts are identified. No adenopathy is seen. IMPRESSION: 1. No sonographic evidence of acute deep venous thrombosis seen. Dictated by: Renaldo Rachel MD @ 05/27/2024 22:15:55 (Electronically Signed) Discharge Plan Discharge Disposition: [facility] Discharge Location: [facility] Date of Admission: 05/27/24 20:37 Attending Provider on Discharge: Juan Diego Metzger Primary Care Provider: Sofia Guerrero Condition: Stable Discharge Orders: Transfer of Care to Other Hospital (ORDER); Ordered 05/28/24 Ordered By: Juan Diego Metzger Additional Instructions: Pt developed CHF exacerbation, acute on chronic hypoxic respiratory failure and severe hypotension, on Oxygen N/C 3 L. Oxygen: Yes Oxygen Delivery Method: Nasal Cannula Oxygen Flow Rate: 3L/min Services not available here: Cardiology
--- NOTE | 2024-05-28 09:06 | REH.PT ---
PT and OT eval orders recieved, per chart patient is transferring today to [facility]. Will hold evals today. Niki Rodriguez, PT, DPT
[2024-05-28] MEDS: CARBIDOPA-LEVODOPA 25-100 TABLET 1 TAB PO (10:09)
[2024-05-28] MEDS: FLUOXETINE HCL 10 MG CAPSULE 30 MG PO (10:10)
[2024-05-28] MEDS: NYSTATIN CREAM 30 GM 1 APPLIC TOPICAL (10:10)
--- NOTE | 2024-05-28 14:28 | PC.NURSE ---
Patient arousable to voice. Does not know where she is but can tell me her name and birthdate. Denies pain at this time. Left leg is wrapped in guaze and precious. This is clean, dry and intact. Purwick in place while patient is on bedrest. Pt had small bowel movement prior to transfer. Nurse to nurse given to Hina by [facility]. EMS here to transport patient for further care.
== END 2024-05-28 13:45 | disposition short-term general hospital (02) | DRG 602 ==
LOC: ED 16:39 → MEDSURG 20:43
PROVIDERS: Family Medicine; Internal Medicine; Admitting Provider Family Medicine; Emergency Provider Family Medicine; PCP Family Medicine; Visit Provider Family Medicine
DX: L03.116 Cellulitis of left lower limb (principal); I50.33 Acute on chronic diastolic (congestive) heart failure; J96.21 Acute and chronic respiratory failure with hypoxia; L97.829 Non-pressure chronic ulcer of other part of left lower leg with unspecified severity; L97.819 Non-pressure chronic ulcer of other part of right lower leg with unspecified severity; N17.9 Acute kidney failure, unspecified; I48.20 Chronic atrial fibrillation, unspecified; I13.0 Hypertensive heart and chronic kidney disease with heart failure and stage 1 through stage 4 chronic kidney disease, or unspecified chronic kidney disease; N18.4 Chronic kidney disease, stage 4 (severe); Z68.41 Body mass index [BMI] 40.0-44.9, adult; E87.5 Hyperkalemia; I87.2 Venous insufficiency (chronic) (peripheral); E86.0 Dehydration; I27.20 Pulmonary hypertension, unspecified; Z79.01 Long term (current) use of anticoagulants; G47.33 Obstructive sleep apnea (adult) (pediatric); R79.1 Abnormal coagulation profile; I35.0 Nonrheumatic aortic (valve) stenosis; Z91.199 Patient's noncompliance with other medical treatment and regimen due to unspecified reason; G20.A1 Parkinson's disease without dyskinesia, without mention of fluctuations; G89.29 Other chronic pain; E66.01 Morbid (severe) obesity due to excess calories; Z91.81 History of falling; B37.2 Candidiasis of skin and nail; L89.312 Pressure ulcer of right buttock, stage 2; L89.892 Pressure ulcer of other site, stage 2; I95.9 Hypotension, unspecified; Z87.891 Personal history of nicotine dependence; Z99.81 Dependence on supplemental oxygen; I08.3 Combined rheumatic disorders of mitral, aortic and tricuspid valves; F32.A Depression, unspecified; R59.1 Generalized enlarged lymph nodes; S22.009D Unspecified fracture of unspecified thoracic vertebra, subsequent encounter for fracture with routine healing; B95.62 Methicillin resistant Staphylococcus aureus infection as the cause of diseases classified elsewhere; B96.5 Pseudomonas (aeruginosa) (mallei) (pseudomallei) as the cause of diseases classified elsewhere
CPT/HCPCS: 36415; 71045; 80048; 80076; 82140; 82550; 82565; 82803; 83605; 84132; 84484; 85025; 85610; 86140; 87040; 87081; 87631; 93005; 93971; 94761; 99285; A9270; J0613; J1171; J1200; J1940; J2543; J3372; J7030; J7050

== ENCOUNTER 2024-05-28 13:40 | Outpatient (CLI) | payer MEDICARE, BC, SELFPAY | END 2024-05-28 13:41 | disposition home or self-care (01) | LOC: AMB 06-01 08:05 | PROVIDERS: PCP Family Medicine; Visit Provider Family Medicine | DX: L03.116 Cellulitis of left lower limb (principal); E87.6 Hypokalemia; N17.9 Acute kidney failure, unspecified | CPT/HCPCS: A0425; A0433 ==